=== PATIENT | female | born 1960 | race Caucasian/White ===

== ENCOUNTER 2021-10-25 15:11 | Outpatient (CLI) | payer BC, SELFPAY ==
[2021-10-25 20:22] LABS: Hematocrit 46.5 % (37.0-47.0); Hemoglobin 14.9 g/dL (12.0-15.0); Mean Corpuscular Hemoglobin 30.2 pg (26-34); Mean Corpuscular Volume 94.1 fl (80-100); Mean Platelet Volume 11.9 fl (7.4-10.4); Platelet Count Result 205 k/mm3 (150-375); Red Blood Count 4.94 M/mm3 (4.2-5.4); Red Cell Distribution Width 14.5 % (11.5-14.5); White Blood Count 6.2 K/mm3 (4.5-10.0)
[2021-10-25 20:28] LABS: Alanine Aminotransferase 28 U/L (4-35); Albumin Level 4.1 g/dL (3.5-5.1); Alkaline Phosphatase 93 U/L (38-126); Anion Gap 11 mmol/L (8-16); Aspartate Amino Transferase 26 U/L (14-36); Bilirubin,Total 0.9 mg/dL (0.2-1.3); Blood Urea Nitrogen 10 mg/dL (7-17); Calcium 9.3 mg/dL (8.4-10.2); Carbon Dioxide 28 mmol/L (22-30); Chloride 102 mmol/L (98-107); Cholesterol 260 mg/dL (0-200); Estimated Glomerular Filt Rate > 60; Glucose 229 mg/dL (65-110); HDL Direct 55 mg/dL; Sodium 141 mmol/L (137-145); Triglycerides 159 mg/dL (<150)
[2021-10-25 20:58] LABS: Hemoglobin A1C 11.6 % (<5.7)
[2021-10-25 21:11] LABS: LDL Cholesterol Direct 175 mg/dL
[2021-10-30 07:22] LABS: Alphahydroxymidazolam NEGATIVE ng/mL (<50); Alphahydroxytriazolam NEGATIVE ng/mL (<50); Amphetamines NEGATIVE ng/mL (<500); Barbiturates NEGATIVE ng/mL (<300); Benzodiazepines POSITIVE ng/mL (<100); Cocaine Metabolite NEGATIVE ng/mL (<100); Codeine NEGATIVE ng/mL (<50); Hydrocodone 420 ng/mL (<50); Hydromorphone 290 ng/mL (<50); Hydroxyethylflurazepam NEGATIVE ng/mL (<50); Lorazepam NEGATIVE ng/mL (<50); Marijuana Metabolite NEGATIVE ng/mL (<20); Methadone Metabolite NEGATIVE ng/mL (<100); Morphine NEGATIVE ng/mL (<50); Norhydrocodone 770 ng/mL (<50); Opiates POSITIVE ng/mL (<100); Oxidant NEGATIVE mcg/mL (<200); Temazepam NEGATIVE ng/mL (<50); pH 6.1 (4.5-9.0)
== END 2021-10-25 15:12 | disposition home or self-care (01) ==
LOC: ANHBWCLAB 15:13
PROVIDERS: PCP Family Medicine; Visit Provider Family Medicine
DX: E11.65 Type 2 diabetes mellitus with hyperglycemia (principal); G62.9 Polyneuropathy, unspecified; F41.9 Anxiety disorder, unspecified; G54.7 Phantom limb syndrome without pain; Z00.00 Encounter for general adult medical examination without abnormal findings
CPT/HCPCS: 36415; 80053; 80061; 80299; 83036; 85027

== ENCOUNTER 2023-02-13 01:43 | Day surgery (SDC) | payer OTHER, SELFPAY ==
[2023-02-02 14:09] VITALS: BMI 43.4
--- NOTE | 2023-02-13 09:19 | WPDANESEPPF ---
Anes - Initial Pre Proc Eval Procedure: Operation Date: 02/13/23 13:45 Proposed Procedures p Esophagogastroduodenoscopy & Colonoscopy - Paco Everett MD Date/Time: 02/13/23 09:19 Surgeon: Paco Everett MD Pre Op Diagnosis: GERD, Dysphagia, Hiatal Hernia, positive cologuard Patient Data Age: 62 Gender: F Height: 1.83 m Weight: 145.5 kg Allergies Allergy/AdvReac Type Severity Reaction Status Date / Time amoxicillin Allergy Unknown Unknown Verified 01/08/23 14:49 codeine Allergy Unknown Unknown Verified 01/08/23 14:49 nitrofurantoin Allergy Unknown Unknown Verified 01/08/23 14:49 Sulfa (Sulfonamide Allergy Unknown Unknown Verified 01/08/23 14:49 Antibiotics) ciprofloxacin Allergy Swelling Verified 01/08/23 14:49 of Lip/Tongue/Throat metformin AdvReac cramping, Verified 01/08/23 14:49 nausea, abdominal pain morphine AdvReac Anxiety Verified 02/02/23 13:56 Home Medications Medication Instructions Recorded Confirmed Type levocetirizine 5 mg tablet 5 mg PO .in the evening PRN 10/06/19 02/02/23 History Allergy Symptoms blood-glucose meter ([employer] #1 ea 11/26/21 02/02/23 Rx Glucose Monitoring System kit) pen needle, diabetic 32 gauge x #100 ea 12/03/21 02/02/23 Rx 1/4 (Novofine 32) gabapentin 600 mg tablet 1,200 mg PO TID #180 tabs 07/26/22 02/02/23 Rx omeprazole 40 mg capsule,delayed 40 mg PO DAILY #90 caps 09/23/22 02/02/23 Rx release glipizide 5 mg tablet 10 mg PO BID #360 tabs 09/27/22 02/02/23 Rx ibuprofen 800 mg tablet 800 mg PO TID pain #270 tabs 09/27/22 02/02/23 Rx lisinopril 2.5 mg tablet 2.5 mg PO DAILY #90 tabs 10/10/22 02/02/23 Rx ferrous sulfate 325 mg (65 mg 325 mg PO DAILY #90 tabs 11/17/22 02/02/23 Rx iron) tablet famotidine 20 mg tablet 20 mg PO DAILY #90 tabs 12/24/22 02/02/23 Rx albuterol sulfate 90 mcg/actuation 2 inh inhalation Q4-6H #18 grams 12/28/22 02/02/23 Rx aerosol inhaler (ProAir HFA) dulaglutide 1.5 mg/0.5 mL 1.5 mg (0.5 mL) subcut WEEKLY #2 mL 12/31/22 02/02/23 Rx subcutaneous pen injector (Trulicity) metoclopramide HCl 10 mg tablet 10 mg PO Q6H #60 tabs 01/08/23 02/02/23 Rx (Reglan) ondansetron 4 mg disintegrating 4 mg PO Q6H PRN nausea and 01/22/23 02/02/23 Rx tablet vomiting #20 tabs hyoscyamine sulfate 0.125 mg tablet 0.125 mg PO DAILY 02/02/23 02/02/23 History magnesium 250 mg tablet 250 mg PO DAILY 02/02/23 02/02/23 History polyethylene glycol 3350 17 17 g PO DAILY PRN Constipation 02/02/23 02/02/23 History gram/dose oral powder (Miralax) blood sugar diagnostic (CareTouch #100 ea 02/03/23 Rx Test Strip) lancets 33 gauge (CareTouch Twist #100 ea 02/03/23 Rx Lancet) alprazolam 0.5 mg tablet 0.5 mg PO TID PRN anxiety #90 tabs 02/13/23 Rx hydrocodone 10 mg-acetaminophen 1 tablet PO Q8H PRN pain #90 tabs 02/13/23 Rx 325 mg tablet Patient hx anesthesia problems: none Family hx anesthesia problems: none Results Review: All pre-operative results and documents have been reviewed as part of the pre-operative evaluation. [facility] Past Medical History Medical History (Updated 02/13/23 @ 09:20 by Jose F Bill DO) Amputation of right lower extremity below knee Anxiety Asthma Early satiety Epigastric pressure Family hx of colon cancer Gastroparesis Hiatal hernia Hypertension Nausea Obesities, morbid Other snf (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 therapy Peripheral polyneuropathy Phantom limb Therapeutic opioid-induced constipation (OIC) Uncontrolled type 2 diabetes mellitus with hyperglycemia Family History Family History Mother Diabetes mellitus Heart failure Grandparent Diabetes mellitus Family history of pancreatic cancer Family history of colonic diverticulitis Sibling COPD (chronic obstructive pulmonary disease) Parkinson disease Father Parkinson disease Social History
[2023-02-13 12:18] VITALS: BP 151/99; PULSE 84; RESP 18; TEMP 36.2; O2SAT 96; BMI 43.4
[2023-02-13] MEDS: LACTATED RINGERS 1,000 ML 150 ML IV CONT (12:28)
--- NOTE | 2023-02-13 12:30 | PM.HPGS ---
History of Present Illness History of Present Illness Consent: Risks, benefits, and alternatives have been discussed and questions answered. Patient agrees to proceed with procedure. Chief complaint: GERD, Dysphagia, Hiatal Hernia, positive cologuard Narrative: Marge Elaine is a 62 year old female with gerd on ppi and famotidine, sometimes feels gas trapped after eating, CT scan showed large hiatal hernia, last colonoscopy 8 years ago and recent positive cologuard (brother also had colon cancer) Review of Systems Constitutional: Constitutional: Denies headache(s) and Denies weakness Eyes: Eyes: Denies blurry vision ENT: Reports Normal hearing present, Denies headache(s) and Denies neck pain Cardiovascular: Cardiovascular: Denies chest pain and Denies dyspnea Respiratory: Respiratory: Denies dyspnea Gastrointestinal: Gastrointestinal: Reports no additional gastrointestinal complaints Genitourinary: Genitourinary: Denies dysuria Musculoskeletal: Musculoskeletal: Denies neck pain Integumentary/Breasts: Skin/Breast: Denies dry skin Neurologic: Reports Normal hearing present, Denies headache(s) and Denies weakness Psychiatric: Psychiatric: Denies anxiety Endocrine: Endocrine: Denies change in body appearance Hematologic/Lymphatic: Hematologic/Lymphatic: Denies easy bleeding Allergic/Immunologic: Allergic/Immunologic: Denies urticaria PMFSH Past Medical History Medical History (Updated 02/13/23 @ 12:32 by Paco Everett MD) Amputation of right lower extremity below knee Anxiety Asthma Early satiety Epigastric pressure Family hx of colon cancer Gastroparesis Hiatal hernia Hypertension Nausea Obesities, morbid Other fpc (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 therapy Peripheral polyneuropathy Phantom limb Positive colorectal cancer screening using Cologuard test Therapeutic opioid-induced constipation (OIC) Uncontrolled type 2 diabetes mellitus with hyperglycemia Family History Family History Mother Diabetes mellitus Heart failure Grandparent Diabetes mellitus Family history of pancreatic cancer Family history of colonic diverticulitis Sibling COPD (chronic obstructive pulmonary disease) Parkinson disease Father Parkinson disease Social History Social History Smoking status: Never smoker Second hand tobacco smoke exposure: No Alcohol intake: never Substance use: never Substance use type: does not use Lack of Transportation: YES Lack of Food: Never True Current Housing: I Have Housing Concerned About Future Housing: YES Difficulty Paying Gas/Electric Bills: YES Difficulty Paying for Meds: No Education: High School Diploma/GED Difficulty w/ Childcare or Family Care: No Living arrangements: with family Meds Home Medications and Allergies Home Medications Medication Instructions Recorded Confirmed Type levocetirizine 5 mg tablet 5 mg PO .in the evening PRN 10/06/19 02/13/23 History Allergy Symptoms blood-glucose meter (CareTouch #1 ea 11/26/21 02/13/23 Rx Glucose Monitoring System kit) pen needle, diabetic 32 gauge x #100 ea 12/03/21 02/13/23 Rx 1/4 (Novofine 32) gabapentin 600 mg tablet 1,200 mg PO TID #180 tabs 07/26/22 02/13/23 Rx omeprazole 40 mg capsule,delayed 40 mg PO DAILY #90 caps 09/23/22 02/13/23 Rx release glipizide 5 mg tablet 10 mg PO BID #360 tabs 09/27/22 02/13/23 Rx ibuprofen 800 mg tablet 800 mg PO TID pain #270 tabs 09/27/22 02/13/23 Rx lisinopril 2.5 mg tablet 2.5 mg PO DAILY #90 tabs 10/10/22 02/13/23 Rx ferrous sulfate 325 mg (65 mg 325 mg PO DAILY #90 tabs 11/17/22 02/13/23 Rx iron) tablet famotidine 20 mg tablet 20 mg PO DAILY #90 tabs 12/24/22 02/13/23 Rx albuterol sulfate 90 mcg/actuation 2 inh inhalation Q4-6H #18 grams 12/28/22 02/13/23 Rx aerosol inhaler (ProAir HFA) jayjay
[2023-02-13 12:31] LABS: Glucose Point of Care 166 mg/dl (65-105)
--- NOTE | 2023-02-13 13:10 | SUR.OPER ---
EGD START: 1240; END: 1249. COLONOSCOPY START: 1256; END: 1309.
[2023-02-13 13:16] VITALS: BP 119/76; PULSE 82; RESP 19; O2SAT 92
[2023-02-13 13:26] VITALS: BP 123/76; PULSE 84; RESP 21; O2SAT 92
[2023-02-13 13:36] VITALS: BP 125/56; PULSE 78; RESP 19; O2SAT 93
== END 2023-02-13 13:52 | disposition home or self-care (01) ==
PROVIDERS: PCP Family Medicine; Visit Provider Internal Medicine Gastroenterology
PROC: 0DJ08ZZ Inspection of Upper Intestinal Tract, Via Natural or Artificial Opening Endoscopic (ICD-10-PCS; CPT 43235; principal; 2023-02-13 13:45)
DX: Z12.11 Encounter for screening for malignant neoplasm of colon (principal); K57.30 Diverticulosis of large intestine without perforation or abscess without bleeding; K64.4 Residual hemorrhoidal skin tags; K64.8 Other hemorrhoids; R19.5 Other fecal abnormalities; Z80.0 Family history of malignant neoplasm of digestive organs; K44.9 Diaphragmatic hernia without obstruction or gangrene; K29.50 Unspecified chronic gastritis without bleeding; J45.909 Unspecified asthma, uncomplicated; I10 Essential (primary) hypertension; E11.9 Type 2 diabetes mellitus without complications; F41.9 Anxiety disorder, unspecified; E11.42 Type 2 diabetes mellitus with diabetic polyneuropathy; E66.01 Morbid (severe) obesity due to excess calories; Z68.41 Body mass index [BMI] 40.0-44.9, adult; Z79.84 Long term (current) use of oral hypoglycemic drugs; Z79.51 Long term (current) use of inhaled steroids; Z79.899 Other long term (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 therapy; Z79.891 Long term (current) use of opiate analgesic
CPT/HCPCS: 45378; 43239; 82948; 88305; J2704; J7120

== ENCOUNTER 2023-03-30 16:09 | Outpatient (CLI) | payer OTHER, SELFPAY ==
[2023-03-30 18:37] LABS: Appearance Urine Clear (Clear); Bilirubin Urine Negative (Negative); Blood Urine Negative (Negative); Color Urine Yellow (Yellow); Glucose Urine UA Negative (Negative); Ketones Urine Trace mg/dL (Negative); Leukocyte Esterase Ur Negative LEU/UL (Negative); Nitrate Urine Negative (Negative); Protein Urine Negative (Negative); Specific Grav Ur 1.019 (1.001-1.035); Urobilinogen Urine 0.2 mg/dL (<2.0); pH Urine 6.5 (5.0-9.0)
[2023-03-30 18:47] LABS: Add Urine Microscopic? NO
[2023-03-30 19:09] LABS: MALB Creatinine Ratio 41.8 mg/g (0-30); Microalbumin Urine Random 7.1 mg/L (0-16.7)
== END 2023-03-30 16:10 | disposition home or self-care (01) ==
LOC: ANHBWCLAB 16:10
PROVIDERS: PCP Family Medicine; Visit Provider Family Medicine
DX: R31.9 Hematuria, unspecified (principal); E11.9 Type 2 diabetes mellitus without complications
CPT/HCPCS: 36415; 81003; 82043; 83036

== ENCOUNTER 2023-07-20 13:41 | Outpatient (CLI) | payer OTHER, SELFPAY | END 2023-07-20 13:42 | disposition home or self-care (01) | LOC: ANHBWCLAB 13:42 | PROVIDERS: PCP Family Medicine; Visit Provider Family Medicine | DX: E11.9 Type 2 diabetes mellitus without complications (principal) | CPT/HCPCS: 36415; 83036 ==

== ENCOUNTER 2023-11-30 16:23 | Outpatient (CLI) | payer OTHER, SELFPAY ==
[2023-11-30 18:55] LABS: Hematocrit 47.7 % (37.0-47.0); Hemoglobin 14.9 g/dL (12.0-15.0); Mean Corpuscular HGB Conc 31.2 g/dl (32-36); Mean Corpuscular Hemoglobin 29.6 pg (26-34); Mean Corpuscular Volume 94.8 fl (80-100); Mean Platelet Volume 11.7 fl (7.4-10.4); Platelet Count Result 234 k/mm3 (150-375); Red Blood Count 5.03 M/mm3 (4.2-5.4); Red Cell Distribution Width 15.3 % (11.5-14.5); White Blood Count 7.7 K/mm3 (4.5-10.0)
[2023-11-30 19:54] LABS: Creatinine Urine 70.7 mg/dL
[2023-11-30 20:16] LABS: MALB Creatinine Ratio < 8.5 mg/g (0-30); Microalbumin Urine Random < 6.0 mg/L (0-16.7)
[2023-11-30 20:57] LABS: Alanine Aminotransferase 38 U/L (6-35); Albumin Level 4.1 g/dL (3.5-5.1); Alkaline Phosphatase 96 U/L (38-126); Anion Gap 8 mmol/L (8-16); Aspartate Amino Transferase 58 U/L (14-36); Bilirubin,Total 0.8 mg/dL (0.2-1.3); Blood Urea Nitrogen 16 mg/dL (7-17); Calcium 10.2 mg/dL (8.4-10.2); Carbon Dioxide 32 mmol/L (22-30); Chloride 101 mmol/L (98-107); Cholesterol 208 mg/dL (0-200); Estimated Glomerular Filt Rate 57; Glucose 115 mg/dL (65-110); HDL Direct 40 mg/dL; Sodium 141 mmol/L (137-145); Triglycerides 145 mg/dL (<150)
[2023-11-30 21:01] LABS: Vitamin D 25 Hydroxy < 12.8 ng/mL
[2023-11-30 21:07] LABS: LDL Cholesterol Direct 118 mg/dL
[2023-11-30 21:13] LABS: Hemoglobin A1C 6.5 % (<5.7)
== END 2023-11-30 16:24 | disposition home or self-care (01) ==
LOC: ANHBWCLAB 16:25
PROVIDERS: PCP Nurse Practitioner Adult Health; Visit Provider Nurse Practitioner Adult Health
DX: R79.89 Other specified abnormal findings of blood chemistry (principal); Z13.9 Encounter for screening, unspecified; E11.9 Type 2 diabetes mellitus without complications
CPT/HCPCS: 36415; 80053; 80061; 82043; 82306; 83036; 85027

== ENCOUNTER 2024-02-09 15:10 | Outpatient (CLI) | payer OTHER, SELFPAY ==
--- NOTE | ~2024-02-09 | US_ITS ---
Ultrasound of the neck CLINICAL HISTORY: Anterior mass TECHNIQUE: Sonographic imaging of the anterior neck in the midline was performed at the area of palpa ble concern. FINDINGS: No sonographic abnormalities seen in the area scanned. No solid mass or fluid collection se en. IMPRESSION: No sonographic correlate seen at the area of palpable concern in the anterior mid neck. No mass lesio n identified. Consider cross-sectional imaging to further evaluate for mass, as indicated. Reviewed, dictated and finalized at location M. IMPRESSION: No sonographic correlate seen at the area of palpable concern in the anterior m id neck. No mass lesion identified. Consider cross-sectional imaging to further evaluate for mass, as indicated.
== END 2024-02-09 15:11 | disposition home or self-care (01) ==
LOC: ANHIMG 15:11
PROVIDERS: PCP Nurse Practitioner Adult Health; Visit Provider Nurse Practitioner Adult Health
DX: R22.1 Localized swelling, mass and lump, neck (principal); R22.0 Localized swelling, mass and lump, head
CPT/HCPCS: 76536

== ENCOUNTER 2024-02-23 15:24 | Outpatient (CLI) | payer OTHER, SELFPAY ==
--- NOTE | ~2024-02-23 | CT_ITS ---
CT scan of the Neck Technique: 2.5 mm axial scans were obtained through the neck without IV contrast administration. Christa nal and sagittal reconstructions of the neck were obtained. Dose reduction technique was used on this scan by utilizing automated exposure control and iterative reconstruction technique. The dose-length product (DLP) was 606.17 mGy-cm. Clinical History: Lump Findings: There is no evidence of any significant cervical lymphadenopathy. Several small, nonenlarged jugulo- digastric and posterior cervical lymph nodes are noted bilaterally. Parapharyngeal spaces appear norm al bilaterally. The parotid and submandibular glands appear normal. In particular, no abnormal mass l esion seen at the location of the BB at the anterior neck. The pharyngeal mucosal spaces appear normal. No soft tissue masses are seen in the neck. The thyroid gland appears normal. Images of the lung apices reveal no abnormalities. Impression: No significant abnormalities noted. Reviewed, dictated and finalized at location . Impression: No significant abnormalities noted.
== END 2024-02-23 15:25 | disposition home or self-care (01) ==
PROVIDERS: PCP Nurse Practitioner Adult Health; Visit Provider Nurse Practitioner Adult Health
DX: R22.1 Localized swelling, mass and lump, neck (principal); R22.0 Localized swelling, mass and lump, head
CPT/HCPCS: 70490

== ENCOUNTER 2024-06-13 14:50 | Outpatient (CLI) | payer OTHER, SELFPAY ==
[2024-06-13 19:06] LABS: Alanine Aminotransferase 19 U/L (6-35); Albumin Level 3.9 g/dL (3.5-5.1); Alkaline Phosphatase 82 U/L (38-126); Anion Gap 8 mmol/L (4-12); Aspartate Amino Transferase 45 U/L (14-36); Bilirubin,Total 0.9 mg/dL (0.2-1.3); Blood Urea Nitrogen 19 mg/dL (7-17); Calcium 9.1 mg/dL (8.4-10.2); Carbon Dioxide 31 mmol/L (22-30); Chloride 100 mmol/L (98-107); Cholesterol 259 mg/dL (0-200); Estimated Glomerular Filt Rate 56; Glucose 183 mg/dL (65-110); HDL Direct 50 mg/dL; Potassium 4.7 mmol/L (3.4-5.0); Sodium 139 mmol/L (137-145); Triglycerides 152 mg/dL (<150)
[2024-06-13 19:17] LABS: Vitamin D 25 Hydroxy 57.7 ng/mL
[2024-06-13 19:18] LABS: LDL Cholesterol Direct 152 mg/dL
[2024-06-13 19:24] LABS: Hemoglobin A1C 9.5 % (<5.7)
[2024-06-13 19:30] LABS: Creatinine Urine 182.5 mg/dL
[2024-06-13 19:39] LABS: MALB Creatinine Ratio 6.5 mg/g (0-30); Microalbumin Urine Random 11.8 mg/L (0-16.7)
== END 2024-06-13 14:51 | disposition home or self-care (01) ==
PROVIDERS: PCP Nurse Practitioner Adult Health; Visit Provider Nurse Practitioner Adult Health
DX: R79.89 Other specified abnormal findings of blood chemistry (principal); E11.9 Type 2 diabetes mellitus without complications; Z79.899 Other long term (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 therapy
CPT/HCPCS: 36415; 80053; 80061; 82043; 82306; 82565; 83036

== ENCOUNTER 2024-12-19 15:17 | Outpatient (CLI) | payer OTHER, SELFPAY ==
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
--- OUTSIDE RECORDS SUMMARY | 2024-12-19 16:05 | XMS_ITS | Referral Summary ---
Author Organization [facility] Address [address] [place] [address] Care Team Providers Care Mail List Librarian Name Role Phone Nena Garcia NP Unavailable [phone] Armen Johns MD Primary Care Provider [phone] Encounters Date Type Department Care Team Description 10/16/2024 6:45 PM WEB PROGRAMMER Office Visit [facility] [place] [address] [place] [address] Kay Hanson NP Non-recurrent acute suppurative otitis media of right ear without spontaneous rupture of tympanic membrane (Primary Dx); Antibiotic-induced yeast infection 09/27/2024 5:38 PM WEB PROGRAMMER - 09/27/2024 11:59 PM WEB PROGRAMMER Hospital Encounter [address] [address] Lumbar radiculopathy Discharge Disposition: Discharge to home or self care from Last 3 Months Allergies Active Allergy Reactions Criticality Noted Date [...] meter 1 each 1 9 Active lancets [facility] 1 lancet to be used 4 times daily for glucose checks 1 each 9 Active TRUEDRAW LANCING DEVICE [facility] 9 Active levocetirizine (XYZAL) 5 mg tablet TK 1 T PO QD 12 9 Active omeprazole (PriLOSEC) 40 mg capsule TK 1 C PO QD AC 1 9 Active ergocalciferol (VITAMIN D) 50,000 unit capsule TK 1 C PO Q WEEK 5 9 Active PROAIR HFA 90 mcg/actuation inhaler Inhale 2 puffs 4 9 Active blood-glucose meter (ONETOUCH ULTRA2 METER) [facility] USE DIRECTED TO TEST BLOOD SUGAR 6 [...] neuropathy, without long-term current use of insulin ([facility]) 03/17/2019 Assessment & Plan (03/17/2019 4:18 PM CDT): 58-year-old woman with history of type 2 diabetes admitted March 12, 2019 after 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 She previously was intolerant of metformin [...] (03/12/2019): Added automatically from request for surgery [id number] Assessment & Plan (03/17/2019 4:19 PM CDT): We will work to improve glycemic control to assist in wound healing. Patient understands the need for long-term stable glycemic control. Side effects of the sulfonylurea agents were discussed in detail with her. 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 Not on file Not on file Last Filed Vital Signs Vital Sign Reading Time Taken Comments Blood Pressure 122/74 10/16/2024 6:48 PM WEB PROGRAMMER Pulse 70 10/16/2024 6:48 PM WEB PROGRAMMER Temperature 36.7 ??C (98.1 ??F) 10/16/2024 6:48 PM CS T Respiratory Rate 17 10/16/2024 6:48 PM WEB PROGRAMMER Oxygen Saturation 98% 10/16/2024 6:48 PM WEB PROGRAMMER Inhaled Oxygen Concentration - - Weight 136.1 kg (300 lb) 10/16/2024 6:48 PM WEB PROGRAMMER per patient Height 182.9 cm (6') 10/16/2024 6:48 PM WEB PROGRAMMER Body Mass Index 40.69 10/16/2024 6:48 PM WEB PROGRAMMER Plan of Treatment Not on file Procedures Procedure Name Priority Date/Time Associated Diagnosis Comments MRI LUMBAR SPINE WO CONTRAST Schedule Routine, Read Routine (OP Routine) 09/27/2024 6:21 PM WEB PROGRAMMER Lumbar radiculopathy LIPID PANEL Routine 03/13/2019 1:03 AM CDT HEMOGLOBIN A1C STAT 03/12/2019 2:48 PM CDT DIGITAL MAMMOGRAPHY Routine 11/04/2013 2:19 PM WEB PROGRAMMER from Last 3 Months or Most Recently Relevant to Health Maintenance Results * MRI Lumbar Spine WO Contrast (09/27/2024 6:21 PM WEB PROGRAMMER) Anatomical Region Laterality Modality Spine N/A Magnetic Resonan ce 09/28/2024 9:33 AM WEB PROGRAMMER Narrative 09/28/2024 9:41 AM WEB PROGRAMMER EXAM DESCRIPTION: ?? MRI LUMBAR SPINE WO [...] epidural fat. ??Mild spinal canal stenosis. ?? Ajgz-jg-[id number] left and no significant right neural foraminal [...] AM T: ??09/28/2024 9:41 AM Report ID: [id number] Reading Location: ??[id number] Procedure Note Rey Wilkins, DO - 09/28/2024 EXAM DESCRIPTION: MRI LUMBAR [...] dorsal epidural fat. Mild spinal canal stenosis. Zcna-el-oyemqquv left and no significant right neural foraminal [...] Rey Wilkins D.O. AP: OSCAR Report ID: [id number] Reading Location: [place] [address] Anahi Brewer NAIL SPECIALIST IMG MRI PROCEDURES Final Re sult * Lipid panel (03/13/2019 1:03 AM CDT) Cholesterol 182 30 - 199 mg/dL [facility] Comment: Interpretive Data Ages < or = [...] revised on 2018. Triglycerides 78 <=149 mg/dL [facility] Comment: Interpretive Data Ages < or = [...] revised on 2018. HDL 45 >=40 mg/dL [facility] Comment: Interpretive Data Ages < or = [...] on 2018. LDL, calculated 121 <=129 mg/dL [facility] Comment: Interpretive Data Ages < or = [...] revised on 2018. Chol/HDL ratio 4 [facility] Blood specimen (specimen) 03/13/2019 1:03 AM CDT 03/13/2019 12:42 PM CDT Narrative [facility] - 03/14/2019 2:21 AM CDT us Walker [place] MD LAB BLOOD ORDERABL ES Final Result [facility] Department [place] [address] * (ABNORMAL) Hemoglobin A1c (03/12/2019 2:48 PM CDT) Hgb A1C 9.3(H) 4.0 - 5.6 % [facility] Estimated Average Glucose 220 mg/dL [facility] Comment: The ADA recommends reporting an estimated Average Glucose (eAG) with all Hemoglobin A1c results using the equation derived from a study of 507 normal and diabetic adults. ??Minority populations were underrepresented and children were not included. ?? (Diabetes Care 31:3950-3696, 2008). ??The eAG is not equivalent to a fasting glucose. Blood specimen (specimen) 03/12/2019 2:48 PM CDT 03/12/2019 3:01 PM CDT Narrative [facility] - 03/12/2019 9:09 PM CDT us Jhonny Headley MD LAB BLOOD ORDERABLES Final R esult [facility] Department [place] [address] * DIGITAL MAMMOGRAPHY (11/04/2013 2:19 PM WEB PROGRAMMER) Anatomical Region Laterality Modality Breast Mammography 11/04/2013 2:19 PM WEB PROGRAMMER Narrative 11/04/2013 7:55 PM WEB PROGRAMMER Screening Mamm Bi ??Acc#: ??[id number] DATE OF EXAM: ??Nov 04 2013 CLINICAL [...] on: ??Nov 04 2013 2:28P Transcribed by: ??areli ??On: Nov 04 2013 ??3:06P Approved Electronically by: ??PATRICIA HANSON M.D. ??on: ??Nov 04 2013 7:55P Ordering DR: KAVON COSBY Attending : KAVON COSBY Procedure Note Provider, MD Joan - 03/17/2017 Screening Mamm Bi Acc#: [id number] DATE OF EXAM: Nov 04 2013 CLINICAL [...] COSBY Attending DR: KAVON COSBY Historical Provider IMG MAMMO PROCEDURES Yue l Result from Last 3 Months or Most Recently Relevant to Health Maintenance Insurance [employer] [facility] [place] [id number] Advance Directives For more information, please contact: [phone] * Full Code (Latest Code Status on File) Date Activated Date Inactivated Comments 03/12/2019 4:27 PM 03/17/2019 10:36 PM Care Teams Mail List Librarian Relationship Specialty [place] [id number] [address] [address] PCP - General Family Practice 05/27/22 Nena Garcia, [place] [id number] [address] [address] 03/12/19
[2024-12-19 20:36] LABS: Basophils Percent Auto 0.7 % (0.2-1.2); Eosinophils Absolute Auto 0.1 K/mm3 (0-0.3); Hematocrit 46.7 % (37.0-47.0); Hemoglobin 14.6 g/dL (12.0-15.0); Immature Granulocyte Absolute 0.01 K/mm3 (0.00-0.031); Immature Granulocyte Percent A 0.2 % (0-0.5); Lymphocytes Absolute Auto 1.92 K/mm3 (0.9-3.2); Lymphocytes Percent Auto 33.4 % (18.3-44.2); Mean Corpuscular HGB Conc 31.3 g/dl (32-36); Mean Corpuscular Hemoglobin 29.7 pg (26-34); Mean Corpuscular Volume 95.1 fl (80-100); Mean Platelet Volume 12.4 fl (7.4-10.4); Monocytes Absolute Auto 0.4 K/mm3 (0.1-0.6); Monocytes Percent Auto 7.3 % (2.6-8.5); Neutrophils Absolute Auto 3.3 K/mm3 (1.3-6.7); Neutrophils Percent Auto 57.4 % (45.5-73.1); Platelet Count Result 170 k/mm3 (150-375); Red Blood Count 4.91 M/mm3 (4.2-5.4); White Blood Count 5.7 K/mm3 (4.5-10.0)
[2024-12-19 20:44] LABS: Iron 113 ug/dL (37-170)
[2024-12-19 21:03] LABS: Percent Iron Saturation 46 % (20-50)
[2024-12-19 21:07] LABS: Hemoglobin A1C > 14.0 % (<5.7)
[2024-12-19 21:10] LABS: Creatinine Urine 100.8 mg/dL
[2024-12-19 21:14] LABS: Microalbumin Urine Random < 6.0 mg/L (0-16.7)
[2024-12-19 21:15] LABS: MALB Creatinine Ratio < 6.0 mg/g (0-30)
[2024-12-19 21:20] LABS: Free T4 Free Thyroxine 1.19 ng/dL (0.78-2.19); Vitamin D 25 Hydroxy 81.2 ng/mL
[2024-12-20 00:10] LABS: LDL Cholesterol Direct 182 mg/dL
[2024-12-20 00:13] LABS: Alanine Aminotransferase 24 U/L (6-35); Albumin Level 4.1 g/dL (3.5-5.1); Alkaline Phosphatase 85 U/L (38-126); Anion Gap 10 mmol/L (4-12); Aspartate Amino Transferase 23 U/L (14-36); Bilirubin,Total 0.8 mg/dL (0.2-1.3); Blood Urea Nitrogen 12 mg/dL (7-17); Calcium 9.4 mg/dL (8.4-10.2); Carbon Dioxide 30 mmol/L (22-30); Chloride 97 mmol/L (98-107); Cholesterol 276 mg/dL (0-200); Estimated Glomerular Filt Rate > 60; Glucose 345 mg/dL (65-110); HDL Direct 48 mg/dL; Sodium 137 mmol/L (137-145); Triglycerides 198 mg/dL (<150)
[2024-12-20 01:09] LABS: Folic Acid 4.4 ng/mL (2.76->20)
== END 2024-12-19 15:18 | disposition home or self-care (01) ==
PROVIDERS: PCP Nurse Practitioner Adult Health; Visit Provider Nurse Practitioner Adult Health
DX: L65.9 Nonscarring hair loss, unspecified (principal); D64.9 Anemia, unspecified; E11.9 Type 2 diabetes mellitus without complications; I10 Essential (primary) hypertension; R79.89 Other specified abnormal findings of blood chemistry
CPT/HCPCS: 36415; 80053; 80061; 82043; 82306; 82565; 82607; 82728; 82746; 83036; 83540; 83550; 84439; 84443; 85025

== ENCOUNTER 2025-01-26 12:01 | Outpatient (CLI) | payer OTHER, SELFPAY ==
--- NOTE | ~2025-01-26 | XR_ITS ---
CHEST RADIOGRAPH, PA AND LATERAL CLINICAL HISTORY: f/u pneumonia, 2 wks ago . COMPARISON: None available TECHNIQUE: PA and lateral views of the chest. FINDINGS Large hiatal hernia with an air-fluid level. The remainder of the cardiomediastinal silhouette is otherwise unremarkable. Elevation of the left hemidiaphragm with adjacent compressive atelectasis. No focal infiltrate or effusion is appreciated. IMPRESSION: No focal infiltrate or effusion, as detailed above. Reviewed, dictated and finalized at location A. HT LOSS COUNSELOR
--- OUTSIDE RECORDS SUMMARY | 2025-01-26 13:27 | XMS_ITS | Clinical Summary ---
Author Organization [facility] Address [address] [place] [address] Phone Care Team Providers Care Manufacturing Area Manager Name Role Phone Analy Wilkerson APRN, BARREL PLATER Unavailable Armen Johns MD Primary Care Provider [phone] Allergies Active Allergy Reactions Criticality Noted Date Comments Codeine Itching Low 07/25/2016 Warfarin Sodium Other (see Comments) 07/25/2016 Developed Severe bleeding in 2015, so was stopped Morphine Anxiety,Other (see Comments) Low 05/26/2022 Panic response. Nitrofurantoin Anaphylaxis 07/25/2016 Penicillin G Shortness of Breath,Itching 01/21/2020 Sulfa Antibiotics Nausea 10/07/2016 Medications Blood Glucose Monitoring Suppl (ONE TOUCH ULTRA 2) W/DEVICE Kit USE DIRECTED TO TEST BLOOD SUGAR 0 6 Active polycarbophil calcium (FIBERCON) 625 MG Tablet 625 mg as needed. 9 Active ibuprofen (MOTRIN) 800 MG Tablet Take 800 mg by mouth 3 times daily (with meals). Active ALPRAZolam (XANAX) 0.5 MG Tablet Take 0.5 mg by mouth 3 times daily as needed. Pt sometimes takes only 1/2 tab. Active Vitamin D3 1.25 MG (59651 UT) Capsule Take 5,000 Units by mouth every 7 days. 4 Active famotidine (PEPCID) 20 MG Tablet Take 20 mg by mouth daily. 5 Active Ferrous Sulfate 325 (65 Fe) MG Tablet Delayed Response Take 325 mg by mouth daily. 5 Active Lantus SoloStar 100 UNIT/ML Solution Pen-injector 20 Units by Subcutaneous route nightly. Active lisinopril (PRINIVIL, ZESTRIL) 2.5 MG Tablet Take 2.5 mg by mouth daily. 4 Active pantoprazole (PROTONIX) 40 MG Tablet Delayed Response Take 40 mg by mouth daily. 9 Active rosuvastatin (CRESTOR) 5 MG Tablet Take 5 mg by mouth every evening. 5 Active Mounjaro 2.5 MG/0.5ML Solution Auto-injector 2.5 mg by Subcutaneous route every 7 days. 5 Active albuterol 108 (90 Base) MCG/ACT Aerosol Solution take 1 Puff by inhalation every 4 hours as needed. 5 Active Albuterol Sulfate (ProAir RespiClick) 108 (90 Base) MCG/ACT AEROSOL POWDER, BREATH ACTIVATED 2 Puffs. 9 Active gabapentin (NEURONTIN) 600 MG Tablet Take 1,200 mg by mouth 3 times daily. 5 Active HYDROcodone-ac etaminophen (NORCO) 10-325 MG Tablet Take 1 Tablet by mouth every 8 hours as needed for Moderate or more severe pain. Active predniSONE (DELTASONE) 10 MG Tablet Take 3 tabs by mouth everyday for 3 days, then take 2 tabs by mouth every day for 2 days, then 1 tab orally x 1 day and done. 14 Tablet 5 Active Albuterol Sulfate (PROAIR HFA IN) take 2 Puffs by inhalation every 4 hours as needed. 025 Discontin ued(Med List Clean Up) gabapentin (NEURONTIN) 300 MG Capsule 300 mg 3 times daily. 9 025 Discontin ued(Med List Clean Up) HYDROcodone-ac etaminophen (NORCO) 10-325 MG Tablet Take 1 Tab by mouth 2 times daily as needed. 0 025 Discontin ued(Med List Clean Up) glipiZIDE (GLUCOTROL XL) 5 MG TABLET SR 24 HR TK 2 TS PO QD WITH BREAKFAST 0 025 Discontin ued(Med List Clean Up) hyoscyamine (ANASPAZ, LEVSIN) 0.125 MG Tablet Take 0.125 mg by mouth every 4 hours as needed. 025 Discontin ued(Med List Clean Up) omeprazole (PriLOSEC) 40 MG CAPSULE DELAYED RELEASE Take 40 mg by mouth nightly. 9 025 Discontin ued(Dupli jose Order) Active Problems Problem Noted Date Diagnosed Date Exacerbation of asthma, unsp ecified asthma severity, unspecified whether persistent 01/12/2025 Influenza A 01/12/2025 Class 2 obesity with body ma ss index (BMI) of 38.0 to 38.9 in adult 01/12/2025 Acute kidney injury 01/12/2025 Type 2 diabetes mellitus wit h diabetic neuropathy, without long-term current use of insulin 03/10/2020 Elevated d-dimer 03/10/2020 Acute blood loss anemia 03/10/2020 Suspected 2019 novel coronavirus infection 03/10 Constipation 03/10/2020 Deep vein thrombosis (DVT) 11/23/2007 Overview (01/12/2025): hx Rt arm DVT and was on Warfarin but developed severe bleeding 2015, so warfarin stopped Hypertension GERD (gastroesophageal reflux disease) Dyslipidemia Asthma Anxiety Encounters Date Type Department Care Team Description 01/11/2025 10:11 PM CAREERS COUNSELLOR - 01/19/2025 5:07 PM CAREERS COUNSELLOR Hospital Encounter [facility] [address] [id number] Shady Irby MD Dianati, Behfar, MD CarKeisha wolfe MD Exacerbation of asthma, unspecified asthma severity, unspecified whether persistent Discharge Disposition: Discharged to home or Selfcare 01/11/2025 Travel from Last 3 Months Immunizations Immunization Administration Dates Next Due Influenza Vaccine, Quadrivalent, PF 110 11/2021,09/13/2021,03/11/2020,10/30 Influenza, Injectable, Quadrivalent 09/25/2016 Influenza, Seasonal, Injecta ble, Undefined 10/25/2015 Influenza,Split Virus,Trivalent,Injectable,PF 10/27/2013 Pneumococcal Vaccine Adult - 23 Valent 1,03/11/2020 Pneumococcal conjugate PCV20 , polysaccharide [id number] conjugate, adjuvant, PF 05/09/2023 TDAP Vaccine 03/12/2019 Zoster Vaccine Recombinant 09/19/2023,05/09/2023 Family History Medical History Relation Name Comments Colon Cancer Brother 1/2 brother Parkinsonism Father Stroke Father Breast Cancer Maternal Aunt Cancer Maternal Grandmother pancrea tic Heart Disease Mother bypass Heart Disease Paternal Grandfather Heart Attack Sister Relation Name Status Comments Brother Father Maternal Aunt Maternal Grandmother Mother Paternal Grandfather Sister Social History Tobacco Use Types Packs/Day Years Used Date Smoking Tobacco: Never Smokeless Tobacco: Never Alcohol Use Standard Drinks/Week Comments Yes 0 (1 standard drink = 0.6 oz pur e alcohol) Rarely [facility] Utilities Answer Date Recorded In the past 12 months has th e electric, gas, oil, or water company threatened to shut off services in your home? No 01/12/2025 Hunger Vital Sign Answer Date Recorded Within the past 12 months, y ou worried that your food would run out before you got the money to buy more. Never true 01/12/20 25 Within the past 12 months, t he food you bought just didn't last and you didn't have money to get more. Never true 01/12/2025 PRAPARE - Transportation Answer Date Re corded In the past 12 months, has l ack of transportation kept you from medical appointments or from getting medications? No 12/25 In the past 12 months, has l ack of transportation kept you from meetings, work, or from getting things needed for daily living? No 01/12/2025 Housing Stability Vital Sign Answer Ernesto e Recorded In the last 12 months, was t here a time when you were not able to pay the mortgage or rent on time? No 01/12/2025 In the past 12 months, how m any times have you moved where you were living? 0 01/12/2025 At any time in the past 12 m [facility], were you homeless or living in a retirement (including now)? No 01/12/2025 Comments No Sex and Gender Information Value Date Recorded Sex Assigned at Not on file Legal Sex Female 9:30 PM CDT Gender Identity Not on file Sexual Orientation Not on file Occupation Industry Job Start Date Job End Date unemployed Not on file Not on file Not on file Last Filed Vital Signs Vital Sign Reading Time Taken Comments Blood Pressure 162/76 01/19/2025 7:35 AM CAREERS COUNSELLOR Pulse 80 01/19/2025 7:35 AM CAREERS COUNSELLOR Temperature 37 C (98.6 F) 01/19/2025 7:35 AM CAREERS COUNSELLOR Respiratory Rate 16 01/19/2025 1:51 PM CAREERS COUNSELLOR Oxygen Saturation 94% 01/19/2025 1:51 PM CAREERS COUNSELLOR Inhaled Oxygen Concentration - - Weight 128.4 kg (283 lb) 01/12/2025 8:44 AM CAREERS COUNSELLOR Height 182.9 cm (6') 01/12/2025 8:44 AM CAREERS COUNSELLOR Body Mass Index 38.38 01/12/2025 8:44 AM CAREERS COUNSELLOR Plan of Treatment Health Maintenance Due Date Last Done Comments Diabetes: Eye Exam 1962 Diabetes: Foot Exam 1962 Hepatitis C Virus (HCV) Screening 1962 Pap Smear 1983 Cervical Cancer Screening (CCS) 1992 HPV/Cotest 1992 Cologuard 2012 Mammogram 04/30/2019 04/30/2018 Immunochemical Fecal Occult Blood 03/11/2021 03/11/2020 Respiratory Syncytial Virus (RSV) Immunization (Adult) (1 - Risk 60-74 years 1-dose series) 2022 Influenza Immunization (#1) 2024 11/0 11/2021, 09/13/2021, 03/11/2020, Additional history exists SARS-COV-2 Immunization ( season) 2024 12/20/2021, 03/22/2021, 02/22/2021 Diabetes: Hemoglobin A1c 07/11/2025 025, 03/09/2020, 03/12/2019, Additional history exists Diabetes: Nephropathy Screening 01/11/2026 01/11/2025, 05/26/2022, 05/24/2022, Additional history exists Colonoscopy 11/03/2026 11/03/2016 Colorectal Cancer Screening 11/03/2026 Td Immunization Every 10 Years (Adults With 1 Tdap) 03/12/2029 03/12/2019 11/03/2016 DTaP/Tdap/Td Immunization Discontinued 03/12/2019 TdaP Immunization Discontinued 03/12/2019 Pneumococcal Immunization (50+ years) Completed 05/09/2023, 09/13/2021, 03/11/2020 Pneumococcal Immunization Combined Discontinued 05/09/2023, 09/13/2021, 03/11/2020 Zoster Immunization Completed 09/19/2023, 3 Hepatitis B Immunization Aged Out No longer eligible based on patient's age to complete this topic Meningococcal Immunization (ACWY) Aged Out No longer eligible based on patient's age to complete this topic Rotavirus Immunization Aged Out No lo nger eligible based on patient's age to complete this topic Procedures Procedure Name Priority Date/Time Associated Diagnosis Comments POCT GLUCOSE Routine 01/19/2025 11:16 AM CAREERS COUNSELLOR MANUAL DIFFERENTIAL Routine 01/19/2025 6 :04 AM CAREERS COUNSELLOR CBC WITH AUTO DIFFERENTIAL Routine 01/19/2025 6:04 AM CAREERS COUNSELLOR BASIC METABOLIC PANEL W/ CALCIUM TOTAL Routine 01/19/2025 6:04 AM CAREERS COUNSELLOR COMPLETE BLOOD COUNT (CBC) WITH DIFF Routine 01/19/2025 6:04 AM CAREERS COUNSELLOR POCT GLUCOSE Routine 01/19/2025 5:35 AM CAREERS COUNSELLOR RHYTHM STRIP 01/19/2025 12:00 AM CAREERS COUNSELLOR RHYTHM STRIP 01/19/2025 12:00 AM CAREERS COUNSELLOR POCT GLUCOSE Routine 01/18/2025 10:02 PM CAREERS COUNSELLOR POCT GLUCOSE Routine 01/18/2025 4:28 PM CAREERS COUNSELLOR POCT GLUCOSE Routine 01/18/2025 11:27 AM CAREERS COUNSELLOR POCT GLUCOSE Routine 01/18/2025 6:44 AM CAREERS COUNSELLOR MANUAL DIFFERENTIAL Routine 01/18/2025 6 :00 AM CAREERS COUNSELLOR CBC WITH AUTO DIFFERENTIAL Routine 01/18/2025 6:00 AM CAREERS COUNSELLOR BASIC METABOLIC PANEL W/ CALCIUM TOTAL Routine 01/18/2025 6:00 AM CAREERS COUNSELLOR COMPLETE BLOOD COUNT (CBC) WITH DIFF Routine 01/18/2025 6:00 AM CAREERS COUNSELLOR VANCOMYCIN Timed 01/18/2025 6:00 AM CAREERS COUNSELLOR RHYTHM STRIP 01/18/2025 12:00 AM CAREERS COUNSELLOR RHYTHM STRIP 01/18/2025 12:00 AM CAREERS COUNSELLOR RHYTHM STRIP 01/18/2025 12:00 AM CAREERS COUNSELLOR RHYTHM STRIP 01/18/2025 12:00 AM CAREERS COUNSELLOR POCT GLUCOSE Routine 01/17/2025 7:23 PM CAREERS COUNSELLOR POCT GLUCOSE Routine 01/17/2025 4:23 PM CAREERS COUNSELLOR POCT GLUCOSE Routine 01/17/2025 12:16 PM CAREERS COUNSELLOR POCT GLUCOSE Routine 01/17/2025 8:09 AM CAREERS COUNSELLOR MANUAL DIFFERENTIAL Routine 01/17/2025 6 :16 AM CAREERS COUNSELLOR CBC WITH AUTO DIFFERENTIAL Routine 01/17/2025 6:16 AM CAREERS COUNSELLOR COMPLETE BLOOD COUNT (CBC) WITH DIFF Routine 01/17/2025 6:16 AM CAREERS COUNSELLOR BASIC METABOLIC PANEL W/ CALCIUM TOTAL Routine 01/17/2025 6:16 AM CAREERS COUNSELLOR RHYTHM STRIP 01/17/2025 12:00 AM CAREERS COUNSELLOR RHYTHM STRIP 01/17/2025 12:00 AM CAREERS COUNSELLOR RHYTHM STRIP 01/17/2025 12:00 AM CAREERS COUNSELLOR RHYTHM STRIP 01/17/2025 12:00 AM CAREERS COUNSELLOR POCT GLUCOSE Routine 01/16/2025 7:37 PM CAREERS COUNSELLOR POCT GLUCOSE Routine 01/16/2025 4:09 PM CAREERS COUNSELLOR POCT GLUCOSE Routine 01/16/2025 11:26 AM CAREERS COUNSELLOR VANCOMYCIN Timed 01/16/2025 11:13 AM CAREERS COUNSELLOR XR CHEST SINGLE VIEW PORTABLE Routine 01/16/2025 10:24 AM CAREERS COUNSELLOR POCT GLUCOSE Routine 01/16/2025 8:31 AM CAREERS COUNSELLOR MANUAL DIFFERENTIAL Routine 01/16/2025 4 :16 AM CAREERS COUNSELLOR CBC WITH AUTO DIFFERENTIAL Routine 01/16/2025 4:16 AM CAREERS COUNSELLOR COMPLETE BLOOD COUNT (CBC) WITH DIFF Routine 01/16/2025 4:16 AM CAREERS COUNSELLOR BASIC METABOLIC PANEL W/ CALCIUM TOTAL Routine 01/16/2025 4:16 AM CAREERS COUNSELLOR RHYTHM STRIP 01/16/2025 12:00 AM CAREERS COUNSELLOR RHYTHM STRIP 01/16/2025 12:00 AM CAREERS COUNSELLOR RHYTHM STRIP 01/16/2025 12:00 AM CAREERS COUNSELLOR RHYTHM STRIP 01/16/2025 12:00 AM CAREERS COUNSELLOR POCT GLUCOSE Routine 01/15/2025 9:56 PM CAREERS COUNSELLOR POCT GLUCOSE Routine 01/15/2025 4:39 PM CAREERS COUNSELLOR COMMUNICATION TO RESPIRATORY THERAPY Routine 01/15/2025 10:04 AM CAREERS COUNSELLOR POCT GLUCOSE Routine 01/15/2025 10:04 AM CAREERS COUNSELLOR MANUAL DIFFERENTIAL Routine 01/15/2025 5 :31 AM CAREERS COUNSELLOR CBC WITH AUTO DIFFERENTIAL Routine 01/15/2025 5:31 AM CAREERS COUNSELLOR COMPLETE BLOOD COUNT (CBC) WITH DIFF Routine 01/15/2025 5:31 AM CAREERS COUNSELLOR BASIC METABOLIC PANEL W/ CALCIUM TOTAL Routine 01/15/2025 5:31 AM CAREERS COUNSELLOR VANCOMYCIN Timed 01/15/2025 5:31 AM CAREERS COUNSELLOR RHYTHM STRIP 01/15/2025 12:00 AM CAREERS COUNSELLOR RHYTHM STRIP 01/15/2025 12:00 AM CAREERS COUNSELLOR RHYTHM STRIP 01/15/2025 12:00 AM CAREERS COUNSELLOR RHYTHM STRIP 01/15/2025 12:00 AM CAREERS COUNSELLOR POCT GLUCOSE Routine 01/14/2025 9:10 PM CAREERS COUNSELLOR POCT GLUCOSE Routine 01/14/2025 3:45 PM CAREERS COUNSELLOR POCT GLUCOSE Routine 01/14/2025 12:08 PM CAREERS COUNSELLOR POCT GLUCOSE Routine 01/14/2025 8:00 AM CAREERS COUNSELLOR POCT GLUCOSE Routine 01/14/2025 4:53 AM CAREERS COUNSELLOR MANUAL DIFFERENTIAL Routine 01/14/2025 4 :52 AM CAREERS COUNSELLOR CBC WITH AUTO DIFFERENTIAL Routine 01/14/2025 4:52 AM CAREERS COUNSELLOR COMPLETE BLOOD COUNT (CBC) WITH DIFF Routine 01/14/2025 4:52 AM CAREERS COUNSELLOR BASIC METABOLIC PANEL W/ CALCIUM TOTAL Routine 01/14/2025 4:52 AM CAREERS COUNSELLOR MRSA NASAL PCR Routine 01/14/2025 12:49 AM CAREERS COUNSELLOR MRSA NASAL BY PCR Routine 01/14/2025 12:49 AM CAREERS COUNSELLOR RHYTHM STRIP 01/14/2025 12:00 AM CAREERS COUNSELLOR RHYTHM STRIP 01/14/2025 12:00 AM CAREERS COUNSELLOR RHYTHM STRIP 01/14/2025 12:00 AM CAREERS COUNSELLOR POCT GLUCOSE Routine 01/13/2025 9:16 PM CAREERS COUNSELLOR BLOOD GASES, ARTERIAL W/ O2 SATURATION STAT 01/13/2025 8:10 PM CAREERS COUNSELLOR XR CHEST SINGLE VIEW PORTABLE Stat with Interpretation 01/13/2025 7:29 PM CAREERS COUNSELLOR POCT GLUCOSE Routine 01/13/2025 4:42 PM CAREERS COUNSELLOR POCT GLUCOSE Routine 01/13/2025 11:51 AM CAREERS COUNSELLOR INCENTIVE SPIROMETRY RT-INITIAL Routine 01/13/2025 9:49 AM CAREERS COUNSELLOR POCT GLUCOSE Routine 01/13/2025 7:01 AM CAREERS COUNSELLOR CBC WITH AUTO DIFFERENTIAL Routine 01/13/2025 5:28 AM CAREERS COUNSELLOR COMPLETE BLOOD COUNT (CBC) WITH DIFF Routine 01/13/2025 5:28 AM CAREERS COUNSELLOR BASIC METABOLIC PANEL W/ CALCIUM TOTAL Routine 01/13/2025 5:28 AM CAREERS COUNSELLOR RHYTHM STRIP 01/13/2025 12:00 AM CAREERS COUNSELLOR RHYTHM STRIP 01/13/2025 12:00 AM CAREERS COUNSELLOR RHYTHM STRIP 01/13/2025 12:00 AM CAREERS COUNSELLOR POCT GLUCOSE Routine 01/12/2025 8:05 PM CAREERS COUNSELLOR POCT GLUCOSE Routine 01/12/2025 4:51 PM CAREERS COUNSELLOR POCT GLUCOSE Routine 01/12/2025 11:07 AM CAREERS COUNSELLOR NM LUNG PERFUSION SCAN Stat with Interpretation 01/12/2025 8:56 AM CAREERS COUNSELLOR POCT GLUCOSE Routine 01/12/2025 7:31 AM CAREERS COUNSELLOR CBC WITH AUTO DIFFERENTIAL STAT 01/12/2025 5:07 AM CAREERS COUNSELLOR COMPLETE BLOOD COUNT (CBC) WITH DIFF STAT 01/12/2025 5:07 AM CAREERS COUNSELLOR BASIC METABOLIC PANEL W/ CALCIUM TOTAL STAT 01/12/2025 5:07 AM CAREERS COUNSELLOR XR CHEST SINGLE VIEW PORTABLE STAT 01/12/2025 12:28 AM CAREERS COUNSELLOR RHYTHM STRIP 01/12/2025 12:00 AM CAREERS COUNSELLOR RHYTHM STRIP 01/12/2025 12:00 AM CAREERS COUNSELLOR RHYTHM STRIP 01/12/2025 12:00 AM CAREERS COUNSELLOR AEROSOL NEBULIZER-INITIAL STAT 01/11/2025 10:50 PM CAREERS COUNSELLOR CBC WITH AUTO DIFFERENTIAL STAT 01/11/2025 10:29 PM CAREERS COUNSELLOR HEMOGLOBIN A1C W/ ESTIMATED GLUCOSE STAT 01/11/2025 10:29 PM CAREERS COUNSELLOR D-DIMER STAT 01/11/2025 10:29 PM CAREERS COUNSELLOR CMP (COMPREHENSIVE METABOLIC PANEL) STAT 01/11/2025 10:29 PM CAREERS COUNSELLOR COMPLETE BLOOD COUNT (CBC) WITH DIFF STAT 01/11/2025 10:29 PM CAREERS COUNSELLOR EKG 12 LEAD STAT 01/11/2025 10:25 PM CAREERS COUNSELLOR RESPIRATORY PATHOGEN ARRAY Routine 01/11/2025 10:24 PM CAREERS COUNSELLOR RSV,SARS-COV-2,INFL UENZA A&B BY PCR STAT 01/11/2025 10:24 PM CAREERS COUNSELLOR POCT GLUCOSE STAT 01/11/2025 10:18 PM CAREERS COUNSELLOR EKG SCAN 01/11/2025 12:00 AM CAREERS COUNSELLOR STOOL, OCCULT BLOOD, DIAGNOSTIC, VIA GUAIAC Routine 03/11/2020 12:35 AM CDT BRIGITTE DIAG BILATERAL DIGITAL W CAD W LANDEN Routine 04/30/2018 11:03 AM CDT Unspecified lump in the left breast, upper inner quadrant from Last 3 Months or Most Recently Relevant to Health Maintenance Results * (ABNORMAL) POCT Glucose (01/19/2025 11:16 AM CAREERS COUNSELLOR) Only the most recent of31 resultswithin the time period is included. GLUCOSE,BEDSID E POCT 305(H) 70 - 99 mg/dL 01/19/2025 11:22 AM CAREERS COUNSELLOR [facility] Comment:Patient RN Performed Blood 01/19/2025 11:1 6 AM CAREERS COUNSELLOR 01/19/2025 11:22 AM CAREERS COUNSELLOR us None Provider POINT OF CARE TESTING Final Resu lt [facility] [address] [place] [address] * (ABNORMAL) Manual Differential (01/19/2025 6:04 AM CAREERS COUNSELLOR) Only the most recent of6 resultswithin the time period is included. BANDS % 4.0 % 01/19/2025 7:18 AM [facility] NEUTROPHILS % 62.0 47.0 - 73.0 % 01/19/2025 7:18 AM [facility] LYMPHOCYTES % 24.0 18.0 - 42.0 % 01/19/2025 7:18 AM [facility] MONOCYTES % 6.0 4.0 - 12.0 % 01/19/2025 7:18 AM CAREERS COUNSELLOR [facility] EOSINOPHILS % 1.0 0.0 - 5.0 % 01/19/2025 7:18 AM [facility] MYELOCYTES % 3.0(H) <=0.0 % 01/19/2025 7:18 AM [facility] NEUTROPHILS ABSOLUTE 7.80(H) 1.60 - 7.70 10(3)/mcL 01/19/2025 7:18 AM [facility] LYMPHOCYTES ABSOLUTE 2.84 1.30 - 3.20 10(3)/mcL 01/19/2025 7:18 AM [facility] MONOCYTES ABSOLUTE 0.71 0.20 - 1.00 10(3)/mcL 01/19/2025 7:18 AM [facility] EOSINOPHILS ABSOLUTE 0.12 0.00 - 0.40 10(3)/mcL 01/19/2025 7:18 AM [facility] NRBC PER 100 WBC 2 02/27/20 25 7:18 AM CAREERS COUNSELLOR [facility] RBC MORPHOLOGY CONSISTENT WITH INDICES Yes 01/19/2025 7:18 AM CAREERS COUNSELLOR [facility] POLYCHROMASIA 1+ 01/19/2025 7:18 AM CAREERS COUNSELLOR [facility] TOXIC GRANULATION 1+ 2 025 7:18 AM CAREERS COUNSELLOR [facility] GIANT PLATELETS 1+ 7:18 AM CAREERS COUNSELLOR [facility] LARGE PLATELETS 1+ 5 7:18 AM CAREERS COUNSELLOR [facility] REACTIVE LYMPHOCYTES 2 01/19/2025 7:18 AM [facility] Blood Venipuncture / Unknown 01/19/2025 6:04 AM CAREERS COUNSELLOR 01/19/2025 6:34 AM CAREERS COUNSELLOR Narrative [facility] - 01/19/2025 7:18 AM CAREERS COUNSELLOR Anisocytosis Saba Lin ELEVATOR OPERATOR FREIGHT, BARREL PLATER HEMATOLOGY ORDERABLES F inal Result [facility] [address] [place] [address] * CBC with Auto Differential (01/19/2025 6:04 AM CAREERS COUNSELLOR) Only the most recent of9 resultswithin the time period is included. WBC 11.82 4.00 - 12.00 10(3)/mcL 01/19/2025 7:18 AM [facility] RBC 4.17 3.80 - 5.30 10(6)/mcL 01/19/2025 7:18 AM [facility] HEMOGLOBIN (HGB) 12.5 12.0 - 15.8 g/dL 01/19/2025 7:18 AM [facility] HEMATOCRIT (HCT) 38.9 36.0 - 47.0 % 01/19/2025 7:18 AM [facility] MCV 93.3 82.0 - 96.0 fL 01/19/2025 7:18 AM [facility] MCH 30.0 26.0 - 34.0 pg 01/19/2025 7:18 AM [facility] MCHC 32.1 31.0 - 36.0 g/dL 01/19/2025 7:18 AM [facility] PLATELET COUNT 173 140 - 440 10(3)/mcL 01/19/2025 7:18 AM [facility] RDW 13.2 11.8 - 15.5 % 01/19/2025 7:18 AM [facility] MPV 11.2 9.7 - 12.4 fL 01/19/2025 7:18 AM [facility] NRBC PER 100 WBC 0 01/19/2025 7:18 AM [facility] RESULTS ARE CONSISTENT WITH PERIPHERAL SMEAR REVIEW Yes 01/19/2025 7:18 AM [facility] Blood Venipuncture / Unknown 01/19/2025 6:04 AM CAREERS COUNSELLOR 01/19/2025 6:34 AM CAREERS COUNSELLOR Narrative [facility] - 01/19/2025 7:18 AM CAREERS COUNSELLOR Platelet count maybe slightly decreased due to the presence of platelet clumping. us Saba Lin ELEVATOR OPERATOR FREIGHT, BARREL PLATER HEMATOLOGY ORDERABLES F inal Result [facility] [address] [place] [address] * (ABNORMAL) BMP with Ca, Total (01/19/2025 6:04 AM CAREERS COUNSELLOR) Only the most recent of8 resultswithin the time period is included. SODIUM 142 136 - 145 mmol/L 01/19/2025 7:00 AM [facility] POTASSIUM 3.5 3.5 - 5.1 mmol/L 01/19/2025 7:00 AM [facility] CHLORIDE 109(H) 98 - 107 mmol/L 01/19/2025 7:00 AM [facility] CO2, VENOUS 27 22 - 30 mmol/L 01/19/2025 7:00 AM CAREERS COUNSELLOR [facility] ANION GAP 9.5 <18.0 mmol/L 01/19/2025 7:00 AM [facility] GLUCOSE 160(H) 70 - 99 mg/dL 01/19/2025 7:00 AM [facility] BUN 17 10 - 20 mg/dL 01/19/2025 7:00 AM [facility] CREATININE, BLOOD 0.80 0.60 - 1.00 mg/dL 01/19/2025 7:00 AM [facility] BUN/CREATININE RATIO 21(H) 12 - 20 ratio 01/19/2025 7:00 AM [facility] CALCIUM 8.3(L) 8.7 - 10.5 mg/dL 01/19/2025 7:00 AM [facility] GFR, ESTIMATED >60 >=60 01/19/2025 7:00 AM [facility] Comment: Creatinine Clearance is the preferred criteria for selecting drug dose adjustments in renally impaired patients. The GFR is provided as additional pertinent clinical information. GFR is reported in mL/min/1.73 sq m. Calculation based on the Chronic Kidney Disease Epidemiology Collaboration (CKD- EPI) equation refit without adjustment for race. GFR, EST. >60 >=60 025 7:00 AM CAREERS COUNSELLOR [facility] GFR, EST. NONAFRICAN >60 >=60 01/19/2025 7:00 AM [facility] Blood Venipuncture / Unknown 01/19/2025 6:04 AM CAREERS COUNSELLOR 01/19/2025 6:34 AM CAREERS COUNSELLOR us Saba Lin APRN, BARREL PLATER CHEMISTRY ORDERABLES Fi nal Result [facility] [address] [place] [address] * RHYTHM STRIP (01/19/2025 12:00 AM CAREERS COUNSELLOR) Only the most recent of27 resultswithin the time period is included. 01/19/2025 us Provider Scan IMG ECG ORDERABLES Final Result RESULTING AGENCY * (ABNORMAL) Vancomycin Level (01/18/2025 6:00 AM CAREERS COUNSELLOR) Only the most recent of3 resultswithin the time period is included. VANCOMYCIN RESULT 17(L) 20 - 40 mcg/mL 01/18/2025 7:40 AM CAREERS COUNSELLOR [facility] Blood Venipuncture / Unknown 01/18/2025 6:00 AM CAREERS COUNSELLOR 01/18/2025 6:20 AM CAREERS COUNSELLOR Narrative [facility] - 01/18/2025 7:40 AM CAREERS COUNSELLOR CALL PHARMACY FOR THERAPEUTIC RANGE. Gabriel Garay MD CHEMISTRY ORDERABLES Final Res ult [facility] [address] [place] [address] * XR CHEST SINGLE VIEW PORTABLE (01/16/2025 10:24 AM CAREERS COUNSELLOR) Only the most recent of3 resultswithin the time period is included. Anatomical Region Laterality Modality Chest N/A Computed Radiogr aphy 01/16/2025 12:1 9 PM CAREERS COUNSELLOR Impressions 01/16/2025 12:21 PM CAREERS COUNSELLOR IMPRESSION: Similar-appearing airspace and interstitial opacities throughout the left lung. Bilateral peribronchial thickening which can be seen with bronchitis. Narrative 01/16/2025 12:21 PM CAREERS COUNSELLOR EXAM DESCRIPTION: XR CHEST SINGLE VIEW PORTABLE REASON FOR STUDY: evolution of the pneumonia. pt was admitted for chest congestion, cough, and fever few day prior to being admitted. hx of asthma and HTN TECHNIQUE: Single radiographic view of the chest. COMPARISON: 01/13/2025 01/12/2025 03/09/2020 FINDINGS: Suboptimal evaluation due to patient positioning, rotation, and/or technique. Findings made within these confines. LINES/TUBES: None. LUNGS: Similar-appearing airspace interstitial opacities throughout the left lung. No pneumothorax. No pleural effusion. Bilateral peribronchial thickening. HEART/MEDIASTINUM: Unchanged cardiomediastinal contours. Accentuated by technique. Similar-appearing large hiatal hernia. BONES/SOFT TISSUES: No acute osseous abnormality. THIS IS AN ELECTRONICALLY VERIFIED FINAL REPORT 01/16/2025 12:19 PM - Electronically signed by Moe Avendano M.D. NS: NS Report ID: [id number] Reading Location: [id number] Procedure Note Moe Avendano MD - 01/16/2025 EXAM DESCRIPTION: XR CHEST SINGLE VIEW PORTABLE REASON FOR STUDY: evolution of the pneumonia. pt was admitted for chest congestion, cough, and fever few day prior to being admitted. hx of asthma and HTN TECHNIQUE: Single radiographic view of the chest. COMPARISON: 01/13/2025 01/12/2025 03/09/2020 FINDINGS: Suboptimal evaluation due to patient positioning, rotation, and/or technique. Findings made within these confines. LINES/TUBES: None. LUNGS: Similar-appearing airspace interstitial opacities throughout the left lung. No pneumothorax. No pleural effusion. Bilateral peribronchial thickening. HEART/MEDIASTINUM: Unchanged cardiomediastinal contours. Accentuated by technique. Similar-appearing large hiatal hernia. BONES/SOFT TISSUES: No acute osseous abnormality. THIS IS AN ELECTRONICALLY VERIFIED FINAL REPORT 01/16/2025 12:19 PM - Electronically signed by Moe Avendano M.D. NS: NS Report ID: [id number] Reading Location: [id number] IMPRESSION: Similar-appearing airspace and interstitial opacities throughout the left lung. Bilateral peribronchial thickening which can be seen with bronchitis. Gabriel Garay MD [facility] DIAGNOSTIC ORDERABLES Yue l Result * (ABNORMAL) MRSA NASAL PCR (01/14/2025 12:49 AM CAREERS COUNSELLOR) MRSA PCR RESULT Positive(A ) Negative, Invalid 01/14/2025 2:03 AM CAREERS COUNSELLOR [facility] Other NASOPHARYNGEAL SWAB / Unknown Non-Phlebotomy Collection / Unknown 01/14/2025 12:49 AM CAREERS COUNSELLOR 01/14/2025 12:55 AM CAREERS COUNSELLOR us Saba Lin ELEVATOR OPERATOR FREIGHT, BARREL PLATER MICROBIOLOGY - GENERAL ORDERABLES Final Result [facility] [address] [place] [address] * (ABNORMAL) Blood Gases, Arterial w/ O2 Saturation (01/13/2025 8:10 PM CAREERS COUNSELLOR) Pathologist [facility] O2 STATUS HHFNC: 50 LPM,80% FiO2 01/13/2025 8:14 PM CAREERS COUNSELLOR [facility] PH ARTERIAL 7.31(L) 7.35 - 7.45 01/13/2025 8:14 PM [facility] PC02 (ARTERIAL) 41 35 - 45 mmHg 01/13/2025 8:14 PM [facility] PO2 (ARTERIAL) 79 75 - 100 mmHg 01/13/2025 8:14 PM [facility] O2 SAT ART, MEASURED 95 94 - 100 % 01/13/2025 8:14 PM [facility] BASE ARTERIAL -5.0(L) -2.0 - 2.0 mmol/L 01/13/2025 8:14 PM [facility] BICARBONATE 20.4(L) 22.0 - 26.0 mmol/L 01/13/2025 8:14 PM CAREERS COUNSELLOR [facility] RANDY'S TEST RESULTS Positive - Right Radial 01/13/2025 8:14 PM [facility] CARBOXYHEMOGLOBIN 1.4 0.0 - 5.0 % 01/13/2025 8:14 PM [facility] METHEMOGLOBIN 0.4 0.0 - 1.5 % 01/13/2025 8:14 PM [facility] ART Blood Gas Arterial Punctur e / Unknown 01/13/2025 8:10 PM CAREERS COUNSELLOR 01/13/2025 8:10 PM CAREERS COUNSELLOR Keisha Samano MD CHEMISTRY ORDERABLES Final Result [facility] [address] [place] [address] * NM LUNG PERFUSION SCAN (01/12/2025 8:56 AM CAREERS COUNSELLOR) Anatomical Region Laterality Modality Chest N/A Nuclear Medicine 01/12/2025 9:09 AM CAREERS COUNSELLOR Impressions 01/12/2025 9:11 AM CAREERS COUNSELLOR IMPRESSION: 1. Low probability for pulmonary embolism. Narrative 01/12/2025 9:11 AM CAREERS COUNSELLOR EXAM DESCRIPTION: NM LUNG PERFUSION SCAN RADIOPHARMACEUTICAL: 6.3 mCi Tc-99m MAA via a left antecubital vein IV site REASON FOR STUDY: Weakness with elevated D-dimer. TECHNIQUE: Standard multi-planar perfusion scintigrams were obtained. COMPARISON: Chest radiograph 01/12/2025 FINDINGS: Perfusion images obtained in multiple projections show enlargement of the cardiomediastinal silhouette. Nonsegmental outline of the large hiatal hernia is seen. There are no large segmental perfusion defects to suggest pulmonary embolism. THIS IS AN ELECTRONICALLY VERIFIED FINAL REPORT 01/12/2025 9:09 AM - Electronically signed by Gunnar Castaneda M.D. LB: LEILANI Report ID: [id number] Reading Location: [id number] Procedure Note Gunnar Castaneda MD - 01/12/2025 EXAM DESCRIPTION: NM LUNG PERFUSION SCAN RADIOPHARMACEUTICAL: 6.3 mCi Tc-99m MAA via a left antecubital vein IV site REASON FOR STUDY: Weakness with elevated D-dimer. TECHNIQUE: Standard multi-planar perfusion scintigrams were obtained. COMPARISON: Chest radiograph 01/12/2025 FINDINGS: Perfusion images obtained in multiple projections show enlargement of the cardiomediastinal silhouette. Nonsegmental outline of the large hiatal hernia is seen. There are no large segmental perfusion defects to suggest pulmonary embolism. THIS IS AN ELECTRONICALLY VERIFIED FINAL REPORT 01/12/2025 9:09 AM - Electronically signed by Gunnar Castaneda M.D. LB: LB Report ID: [id number] Reading Location: [id number] IMPRESSION: 1. Low probability for pulmonary embolism. us Shady Irby MD IMG NM ORDERABLES Fi nal Result * (ABNORMAL) Hemoglobin A1C (if indicated) (01/11/2025 10:29 PM CAREERS COUNSELLOR) [facility] HGB-A1C 11.8(H) 4.0 - 6.0 % 01/12/2025 4:45 AM CAREERS COUNSELLOR [facility] Est Average Glucose 292.0 mg/dL 01/12/2025 4:45 AM CAREERS COUNSELLOR [facility] Blood Venipuncture / Unknown 01/11/2025 10:29 PM CAREERS COUNSELLOR 01/11/2025 10:45 PM CAREERS COUNSELLOR Narrative [facility] - 01/12/2025 4:45 AM CAREERS COUNSELLOR HEMOGLOBIN A1C: DIABETIC PATIENTS: WELL-CONTROLLED: 6.2 - 7.0 INTERMEDIATE WELL-CONTROLLED: 7.0 - 9.0 POORLY-CONTROLLED: >9.0 Specimens containing greater than 5% of Hemoglobin F may result in lower than expected % HbA1C results. us Katy Otero ELEVATOR OPERATOR FREIGHT, BARREL PLATER CHEMISTRY ORDERABLES Yue l Result [facility] [address] [place] [address] * (ABNORMAL) D-Dimer (01/11/2025 10:29 PM CAREERS COUNSELLOR) Pathologist [facility] D DIMER 1.52(H) <0.50 mcg/mL FEU 01/11/2025 11:02 PM CAREERS COUNSELLOR [facility] Blood Venipuncture / Unknown 01/11/2025 10:29 PM CAREERS COUNSELLOR 01/11/2025 10:45 PM CAREERS COUNSELLOR Narrative [facility] - 01/11/2025 11:02 PM CAREERS COUNSELLOR The FDA has approved this method to exclude the diagnosis of DVT and/or PE at the cutoff value of <0.50 mcg/mL FEU. us Shady Irby MD HEMATOLOGY ORDERABLE S Final Result [facility] [address] [place] [address] * (ABNORMAL) CMP (01/11/2025 10:29 PM CAREERS COUNSELLOR) SODIUM 138 136 - 145 mmol/L 01/11/2025 11:07 PM [facility] POTASSIUM 4.7 3.5 - 5.1 mmol/L 01/11/2025 11:07 PM [facility] Comment: Specimen is hemolyzed. In vitro hemolysis could affect results. Clinical correlation advised. CHLORIDE 106 98 - 107 mmol/L 01/11/2025 11:07 PM [facility] CO2, VENOUS 20(L) 22 - 30 mmol/L 01/11/2025 11:07 PM [facility] ANION GAP 16.7 <18.0 mmol/L 01/11/2025 11:07 PM [facility] GLUCOSE 318(H) 70 - 99 mg/dL 01/11/2025 11:07 PM [facility] BUN 21(H) 10 - 20 mg/dL 01/11/2025 11:07 PM [facility] CREATININE, BLOOD 1.83(H) 0.60 - 1.00 mg/dL 01/11/2025 11:07 PM [facility] BUN/CREATININE RATIO 11(L) 12 - 20 ratio 01/11/2025 11:07 PM [facility] TOTAL PROTEIN 8.2(H) 6.0 - 8.0 g/dL 01/11/2025 11:07 PM [facility] Comment: Specimen is hemolyzed. In vitro hemolysis could affect results. Clinical correlation advised. ALBUMIN 3.5 3.5 - 5.0 g/dL 01/11/2025 11:07 PM [facility] A/G RATIO 0.7(L) 1.0 - 2.2 01/11/2025 11:07 PM [facility] CALCIUM 8.9 8.7 - 10.5 mg/dL 01/11/2025 11:07 PM [facility] T BILI 0.6 0.2 - 1.2 mg/dL 01/11/2025 11:07 PM [facility] SGOT (AST) 37 <43 U/L 01/11/2025 11:07 PM [facility] Comment: Specimen is hemolyzed. In vitro hemolysis could affect results. Clinical correlation advised. SGPT (ALT) 17 <56 U/L 01/11/2025 11:07 PM [facility] ALKALINE PHOSPHATASE 66 40 - 150 U/L 01/11/2025 11:07 PM [facility] GFR, ESTIMATED 31(L) >=60 01/11/2025 11:07 PM [facility] Comment: Creatinine Clearance is the preferred criteria for selecting drug dose adjustments in renally impaired patients. The GFR is provided as additional pertinent clinical information. GFR is reported in mL/min/1.73 sq m. Calculation based on the Chronic Kidney Disease Epidemiology Collaboration (CKD- EPI) equation refit without adjustment for race. GFR, EST. 34(L) >=60 025 11:07 PM [facility] GFR, EST. NONAFRICAN 28(L) >=60 01/11/2025 11:07 PM [facility] Blood Venipuncture / Unknown 01/11/2025 10:29 PM CAREERS COUNSELLOR 01/11/2025 10:45 PM CAREERS COUNSELLOR us Shady Irby MD CHEMISTRY ORDERABLES Final Result Performing Organization Address City/[facility] Co de Phone Number [facility] [address] [place] [address] * EKG 12 LEAD (01/11/2025 10:25 PM CAREERS COUNSELLOR) Ventricular Rate 90 BPM EXTERNAL EKG Atrial Rate 90 BPM EXTERNAL EKG P-R Interval 156 ms EXTERNAL EKG QRS Duration 68 ms EXTERNAL EKG Q-T Duration 350 ms EXTERNAL EKG QTC CALCULATION 428 ms EXTERNAL EKG P [place] 19 degrees EXTERNAL EKG R [place] 36 degrees EXTERNAL EKG T [place] 41 degrees EXTERNAL EKG 01/11/2025 10:2 5 PM CAREERS COUNSELLOR Impressions EXTERNAL EKG - 01/12/2025 11:09 PM CAREERS COUNSELLOR Normal sinus rhythm Low voltage QRS Borderline ECG ~ Confirmed by Ventura Lew ([id number]) on 01/12/2025 11:09:38 PM Narrative Procedure Note Ventura Lew MD - 01/12/2025 IMPRESSION: Normal sinus rhythm Low voltage QRS Borderline ECG ~ Confirmed by Ventura Lew ([id number]) on 01/12/2025 11:09:38 PM Shady Irby MD IMG ECG ORDERABLES F inal Result Performing Organization Address City/[facility]/ZIP Co de Phone Number EXTERNAL EKG * (ABNORMAL) Respiratory Pathogen Array (01/11/2025 10:24 PM CAREERS COUNSELLOR) Pathologist [facility] ADENOVIRUS NON DETECTED NON DETECTED [facility] BIOFIRE TOR 01/16/2025 3:09 PM CAREERS COUNSELLOR [facility] CORONAVIRUS 229E NON DETECTED NON DETECTED [facility] BIOFIRE TOR 01/16/2025 3:09 PM CAREERS COUNSELLOR [facility] CORONAVIRUS HKU1 NON DETECTED NON DETECTED [facility] BIOFIRE TOR 01/16/2025 3:09 PM CAREERS COUNSELLOR [facility] CORONAVIRUS NL 63 NON DETECTED NON DETECTED [facility] BIOFIRE TORCH 01/16/2025 3:09 PM CAREERS COUNSELLOR [facility] CORONAVIRUS OC43 NON DETECTED NON DETECTED [facility] 01/16/2025 3:09 PM CAREERS COUNSELLOR [facility] METAPNEUMOVIRUS NON DETECTED NON DETECTED [facility] 01/16/2025 3:09 PM CAREERS COUNSELLOR [facility] RHINO/ENTEROVIRUS NON DETECTED NON DETECTED [facility] 01/16/2025 3:09 PM CAREERS COUNSELLOR [facility] INFLUENZA A DETECTED(A) NON DETECTED, INVALID [facility] 01/16/2025 3:09 PM CAREERS COUNSELLOR [facility] Comment:Performance of detec ting Influenza A may vary if other Influenza strains are circulating or a novel Influenza A virus emerges. INFLUENZA A, H1 NON DETECTED NON DETECTED, INVALID [facility] 01/16/2025 3:09 PM CAREERS COUNSELLOR [facility] INFLUENZA A, H3 DETECTED(A) NON DETECTED, INVALID [facility] 01/16/2025 3:09 PM CAREERS COUNSELLOR [facility] INFLUENZA A, 2009 H1 NON DETECTED NON DETECTED, INVALID [facility] 01/16/2025 3:09 PM CAREERS COUNSELLOR [facility] INFLUENZA B NON DETECTED NON DETECTED, INVALID [facility] 01/16/2025 3:09 PM CAREERS COUNSELLOR [facility] PARAINFLU VIRUS 1 NON DETECTED NON DETECTED [facility] 01/16/2025 3:09 PM CAREERS COUNSELLOR [facility] PARAINFLU VIRUS 2 NON DETECTED NON DETECTED [facility] 01/16/2025 3:09 PM CAREERS COUNSELLOR [facility] PARAINFLU VIRUS 3 NON DETECTED NON DETECTED [facility] 01/16/2025 3:09 PM CAREERS COUNSELLOR [facility] PARAINFLU VIRUS 4 NON DETECTED NON DETECTED [facility] 01/16/2025 3:09 PM CAREERS COUNSELLOR [facility] RESP SYNCITIAL VIRUS NON DETECTED NON DETECTED [facility] 01/16/2025 3:09 PM CAREERS COUNSELLOR [facility] BORDETELLA PERTUSSIS NON DETECTED NON DETECTED [facility] 01/16/2025 3:09 PM CAREERS COUNSELLOR [facility] Comment:It is recommended th at specimens found to be negative for Bordetella after testing with Film Array RP be confirmed by an alternate method if clinically indicated. CHLAMYDIA PNEUMONIAE NON DETECTED NON DETECTED [facility] 01/16/2025 3:09 PM CAREERS COUNSELLOR [facility] MYCOPLASMA PNEUMONIAE NON DETECTED NON DETECTED [facility] 01/16/2025 3:09 PM CAREERS COUNSELLOR [facility] BORDETELLA PARAPERTUSSIS ([id number]) NON DETECTED NON DETECTED [facility] 01/16/2025 3:09 PM CAREERS COUNSELLOR [facility] SARSCOV2 NOT DETECTED (Reference Range for this test is Not Detected) [facility] 01/16/2025 3:09 PM CAREERS COUNSELLOR [facility] Comment:This test was perfor med by a Reverse Parts And Service Manager PCR Method. Other NASOPHARYNGEAL STRUCTURE / Unknown Non-Phlebotomy Collection / Unknown 01/11/2025 10:24 PM CAREERS COUNSELLOR 01/16/2025 9:54 AM CAREERS COUNSELLOR Gabriel Garay MD MICROBIOLOGY - GENERAL ORDERAB LES Final Result [facility] [address] [place] [address], * (ABNORMAL) CHERRIE-COV-2 Flu RSV - (Quad PCR) (01/11/2025 10:24 PM CAREERS COUNSELLOR) FLU A Positive(A) Negative, Error 01/11/2025 11:18 PM CAREERS COUNSELLOR [facility] FLU B Negative Negative 01/11/2025 11:18 PM CAREERS COUNSELLOR [facility] RESP SYNC VIRUS Negative Negative 11:18 PM CAREERS COUNSELLOR [facility] SARSCOV2 NOT DETECTED (Reference Range for this test is Not Detected) 01/11/2025 11:18 PM CAREERS COUNSELLOR [facility] Comment:This test was perfor med by a Reverse Parts And Service Manager PCR Method. Swab NASOPHARYNGEAL SWAB / Unknown Non-Phlebotomy Collection / Unknown 01/11/2025 10:24 PM CAREERS COUNSELLOR 01/11/2025 10:38 PM CAREERS COUNSELLOR us Shady Irby MD MICROBIOLOGY - GENER AL ORDERABLES Final Result Performing Organization Address [facility] Co de Phone Number [facility] [address] [place] [address] * EKG SCAN (01/11/2025 12:00 AM CAREERS COUNSELLOR) 01/11/2025 us Provider Scan IMG ECG ORDERABLES Final Result Performing Organization Address [facility] Co de Phone Number RESULTING AGENCY * Stool, Occult Blood, Diagnostic (03/11/2020 12:35 AM CDT) OCCULT BLOOD DIAG, GI BLEED Negative Negative 03/11/2020 1:11 AM CDT [facility] Stool specimen (specimen) STOOL SPECIMEN / Unknown Non-Phlebotomy Collection / Unknown 03/11/2020 12:35 AM CDT 03/11/2020 12:41 AM CDT Alyssia Leyva APRN, BARREL PLATER BODY FLUIDS & STOOL S ORDERABLES Final Result Performing Organization Address [facility] de Phone Number [facility] [address] [place] [address] * BRIGITTE DIAG BILATERAL DIGITAL W CAD W LANDEN (04/30/2018 11:03 AM CDT) Anatomical Region Laterality Modality breast Bilateral Mammography 04/30/2018 10:1 8 AM CDT Narrative 05/01/2018 6:12 AM CDT - BRIGITTE DIAG BILATERAL DIGITAL W CAD W LANDEN - BRIGITTE US BREAST LIMITED LT BILATERAL DIGITAL DIAGNOSTIC MAMMOGRAM 3D/2D WITH CAD AND TARGETED LEFT ULTRASOUND WITH MEDIOLATERAL OBLIQUE CRANIOCAUDAL: 04/30/2018 The study was acquired using digital technology and interpreted from soft copy. Current study was also evaluated with ICAD version 7.2. CLINICAL: Diagnostic study. Patient reports a left breast lump inferior at the 12 o'clock region (indicated with palpable lump marker). Patient reports redness in that area and a small bite joselin approximately 1 month ago. Patient informed physician right away and was given antibiotics to take and has finished taking them. Multiple images of both breasts taken due to patient's hypersthenic body habitus. No problems to report with the right. No personal history of cancer. No family history of breast cancer. COMPARISONS: Comparison is made to exams dated: 11/03/2006, 11/04/2013, 10/27/2006, and 10/27/2006 [facility]. BREAST TISSUE:There are scattered fibroglandular densities in both breasts. FINDINGS: No significant masses, calcifications, or other findings are seen in either breast on the mammogram. Targeted ultrasound of the left breast at the area of concern at the 11 o'clock position 20 centimeters from nipple demonstrates a hypoechoic lesion in the skin measuring 1.8 x 0.9 x 0.4 centimeters corresponding to an area of erythema and scabbing seen on skin. No breast parenchymal lesion is identified. IMPRESSION: OVERALL STUDY BIRADS: 2 BENIGN There is no mammographic or targeted sonographic evidence of malignancy. There is a superficial skin lesion at the 11 o'clock position, 20 centimeters from the nipple within the left breast for which clinical follow up is recommended. A 1 year screening mammogram is recommended. The patient has been or will be contacted. Electronically signed by: Sintia Duarte M.D. ll/:04/30/2018 11:30:16 Layer Out Plate Glass: Marcia Resendiz (Chandu), [facility] letter sent: Normal Exam Reading location: [facility] OVERALL STUDY BIRADS: 2 Benign Procedure Note Sintia Duarte MD - 05/01/2018 - BRIGITTE DIAG BILATERAL DIGITAL W CAD W LANDEN - BRIGITTE US BREAST LIMITED LT BILATERAL DIGITAL DIAGNOSTIC MAMMOGRAM 3D/2D WITH CAD AND TARGETED LEFT ULTRASOUND WITH MEDIOLATERAL OBLIQUE CRANIOCAUDAL: 04/30/2018 The study was acquired using digital technology and interpreted from soft copy. Current study was also evaluated with ICAD version 7.2. CLINICAL: Diagnostic study. Patient reports a left breast lump inferior at the 12 o'clock region (indicated with palpable lump marker). Patient reports redness in that area and a small bite joselin approximately 1 month ago. Patient informed physician right away and was given antibiotics to take and has finished taking them. Multiple images of both breasts taken due to patient's hypersthenic body habitus. No problems to report with the right. No personal history of cancer. No family history of breast cancer. COMPARISONS: Comparison is made to exams dated: 11/03/2006, 11/04/2013, 10/27/2006, and 10/27/2006 [facility]. BREAST TISSUE:There are scattered fibroglandular densities in both breasts. FINDINGS: No significant masses, calcifications, or other findings are seen in either breast on the mammogram. Targeted ultrasound of the left breast at the area of concern at the 11 o'clock position 20 centimeters from nipple demonstrates a hypoechoic lesion in the skin measuring 1.8 x 0.9 x 0.4 centimeters corresponding to an area of erythema and scabbing seen on skin. No breast parenchymal lesion is identified. IMPRESSION: OVERALL STUDY BIRADS: 2 BENIGN There is no mammographic or targeted sonographic evidence of malignancy. There is a superficial skin lesion at the 11 o'clock position, 20 centimeters from the nipple within the left breast for which clinical follow up is recommended. A 1 year screening mammogram is recommended. The patient has been or will be contacted. Electronically signed by: Sintia Duarte M.D. ll/:04/30/2018 11:30:16 Layer Out Plate Glass: Marcia Resendiz (R), [facility] letter sent: Normal Exam Reading location: [facility] OVERALL STUDY BIRADS: 2 Benign Delia Yanez ELEVATOR OPERATOR FREIGHT, BARREL PLATER IMG MAMMO ORDERABLES F inal Result from Last 3 Months or Most Recently Relevant to Health Maintenance Additional Health Concerns Infection Onset Date Last Indicated MRSA 01/14/2025 01/14/2025 Insurance [facility] Advance Directives * Full Code (Latest Code Status on File) Date Activated Date Inactivated Comments 01/12/2025 3:25 AM CPR-Full Treat ment: FULL ARREST: Attempt Resuscitation/CPR wit intubation and mechanical ventilation. PRE-ARREST: Use entire range of life support measures to stabilize the patient. * Full Code Date Activated Date Inactivated Comments 03/10/2020 7:24 AM 03/11/2020 4:20 PM CPR-Full Lv atment: FULL ARREST: Attempt Resuscitation/CPR wit intubation and mechanical ventilation. PRE-ARREST: Use entire range of life support measures to stabilize the patient. Care Teams Manufacturing Area Manager Relationship Specialty Start Date End Date Armen Johns MD [address] [place] [address] PCP - General Family Medicine 05/26/22 Analy Wilkerson, ELEVATOR OPERATOR FREIGHT, BARREL PLATER Nurse Practitioner Advanced Practice Nurse 07/25/16
--- OUTSIDE RECORDS SUMMARY | 2025-01-26 13:27 | XMS_ITS | Clinical Summary ---
Author Organization [facility] Address [address] [place] [address] Care Team Providers Care Stack Yield Engineer Name Role Phone Nena Garcia NP Unavailable [phone] Armen Johns MD Primary Care Provider [phone] Allergies Active Allergy Reactions Criticality Noted Date [...] 9 Active blood-glucose meter (ONETOUCH ULTRA2 METER) [facility] USE DIRECTED TO TEST BLOOD SUGAR 6 [...] neuropathy, without long-term current use of insulin ([facility]) 03/17/2019 Assessment & Plan (03/17/2019 4:18 PM CDT): 58-year-old woman with history of type 2 diabetes admitted March 12, 2019 after partial traumatic amputation right foot now post [id number] amputation. She previously was intolerant of metformin due to GI side effects and due to costs was not able to stay on GLP-1 agents. We are seeing her to assist in management of her diabetes. Blood sugar: Blood sugars last 24 hours [...] (03/12/2019): Added automatically from request for surgery [id number] Assessment & Plan (03/17/2019 4:19 PM CDT): We will work to improve glycemic control to assist in wound healing. Patient understands the need for long-term stable glycemic control. Side effects of the sulfonylurea agents were discussed in detail with her. 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 Not on file Not on file Obstetrics History Last Filed Vital Signs Vital Sign Reading Time Taken Comments Blood Pressure 122/74 10/16/2024 6:48 PM [employer] Pulse 70 10/16/2024 6:48 PM [employer] Temperature 36.7 C (98.1 F) 10/16/2024 6:48 PM [employer] Respiratory Rate 17 10/16/2024 6:48 PM [employer] Oxygen Saturation 98% 10/16/2024 6:48 PM [employer] Inhaled Oxygen Concentration - - Weight 136.1 kg (300 lb) 10/16/2024 6:48 PM [employer] per patient Height 182.9 cm (6') 10/16/2024 6:48 PM [employer] Body Mass Index 40.69 10/16/2024 6:48 PM [employer] Plan of Treatment Health Maintenance Due Date [...] Procedure Name Priority Date/Time Associated Diagnosis Comments LIPID PANEL Routine 03/13/2019 1:03 AM CDT HEMOGLOBIN A1C STAT 03/12/2019 2:48 PM CDT DIGITAL MAMMOGRAPHY Routine 11/04/2013 2 :19 PM [employer] from Last 3 Months or Most Recently Relevant to Health Maintenance Results * Lipid panel (03/13/2019 1:03 AM CDT) Cholesterol 182 30 - 199 mg/dL [facility] Comment: Interpretive Data Ages < or = 19 years Acceptable: <170 mg/dL Borderline high: 170-199 mg/dL High: >or= 200 mg/dL Ages > or = 20 years Desirable: <200 mg/dL Borderline high: 200-239 mg/dL High: >or= 240 mg/dL Literature References: 1. Expert Panel on Integrated Guidelines for Cardiovascular Health and Risk Reduction in Children and Adolescents. Pediatrics 2011;128:S213 2. NCEP Expert Panel. Circulation 2004;110:227 Current Interpretive Data was last revised on 2018. Triglycerides 78 <=149 mg/dL [facility] Comment: Interpretive Data Ages < or = 9 years Acceptable: <75 mg/dL Borderline high: 75-99 mg/dL High: >or= 100 mg/dL Ages 10 to 20 years Acceptable: <90 mg/dL Borderline high: 90-129 mg/dL High: >or= 130 mg/dL Ages > or = 20 years Desirable: <150 mg/dL Borderline high: 150-199 mg/dL High: 200-499 mg/dL Very high: >or= 499 mg/dL Literature References: 1. Expert Panel on Integrated Guidelines for Cardiovascular Health and Risk Reduction in Children and Adolescents. Pediatrics 2011;128:S213 2. NCEP Expert Panel. Circulation 2004;110:227 Current Interpretive Data was last revised on 2018. HDL 45 >=40 mg/dL [facility] Comment: Interpretive Data Ages < or = 19 years Acceptable: >45 mg/dL Borderline low: 40-45 mg/dL Low: <40 mg/dL Ages > or = 20 years Desirable: >or= 60 mg/dL Low: <40 mg/dL Literature References: 1. Expert Panel on Integrated Guidelines for Cardiovascular Health and Risk Reduction in Children and Adolescents. Pediatrics 2011;128:S213 2. NCEP Expert Panel. Circulation 2004;110:227 Current Interpretive Data was last revised on 2018. LDL, calculated 121 <=129 mg/dL [facility] Comment: Interpretive Data Ages < or = 19 years Acceptable: <110 mg/dL Borderline high: 110-129 mg/dL High: >or= 130 mg/dL Ages > or = 20 years Optimal: <100 mg/dL Near optimal: 100-129 mg/dL Borderline high: 130-159 mg/dL High: >160 mg/dL Literature References: 1. Expert Panel on Integrated Guidelines for Cardiovascular Health and Risk Reduction in Children and Adolescents. Pediatrics 2011;128:S213 2. NCEP Expert Panel. Circulation 2004;110:227 Current Interpretive Data was last revised on 2018. Non-HDL Cholesterol 136 mg/dL [facility] Comment: Interpretive Data Ages < or = 19 years Acceptable: <120 mg/dL Borderline high: 120-144 mg/dL High: >145 mg/dL Ages > or = 20 years When triglycerides are >200 mg/dL, Non-HDL cholesterol is a secondary target of therapy with treatment goals that are 30 mg/dL greater than the LDL cholesterol target. Literature References: 1. Expert Panel on Integrated Guidelines for Cardiovascular Health and Risk Reduction in Children and Adolescents. Pediatrics 2011;128:S213 2. NCEP Expert Panel. Circulation 2004;110:227 Current Interpretive Data was last revised on 2018. Chol/HDL ratio 4 [facility] Blood specimen (specimen) 03/13/2019 1:03 AM CDT 03/13/2019 12:42 PM CDT Narrative [facility] - 03/14/2019 2:21 AM CDT Walker Lake MD LAB BLOOD ORDERABL ES Final Result Performing Organization Address [facility] de Phone Number [facility] Department [place] [address] * (ABNORMAL) Hemoglobin A1c (03/12/2019 2:48 PM CDT) Hgb A1C 9.3(H) 4.0 - 5.6 % [facility] Estimated Average Glucose 220 mg/dL [facility] Comment: The ADA recommends reporting an estimated Average Glucose (eAG) with all Hemoglobin A1c results using the equation derived from a study of 507 normal and diabetic adults. Minority populations were underrepresented and children were not included. (Diabetes Care 31:5618-1895, 2008). The eAG is not equivalent to a fasting glucose. Blood specimen (specimen) 03/12/2019 2:48 PM CDT 03/12/2019 3:01 PM CDT Narrative [facility] - 03/12/2019 9:09 PM CDT us Jhonny Headley MD LAB BLOOD ORDERABLES Final R esult Performing Organization Address [facility] Co de Phone Number [facility] Department [place] [address] * DIGITAL MAMMOGRAPHY (11/04/2013 2:19 PM [employer]) Anatomical Region Laterality Modality Breast Mammography 11/04/2013 2:19 PM [employer] Narrative 11/04/2013 7:55 PM [employer] Screening Mamm Bi Acc#: [id number] DATE OF EXAM: Nov 04 2013 CLINICAL HISTORY: Screening. Family history of breast cancer (great aunt). Performed by: RESULT: Craniocaudal and mediolateral oblique views demonstrate minimal fibroglandular density in the breasts bilaterally, mostly in the upper outer quadrants. A few nodular foci in the right upper outer quadrant are old and stable. No dominant mass suspicious for malignancy, skin thickening, nipple retraction or suspicious cluster of microcalcifications is seen. Digital technology was employed plus computer-aided detection software (R2) was utilized in interpretation of these images. This facility utilizes a reminder system to notify patients of yearly mammograms. IMPRESSION: 1. NO FINDINGS SUSPICIOUS FOR MALIGNANCY. 2. NO SIGNIFICANT CHANGE COMPARED TO FILM SCREEN MAMMOGRAM ON 10/27/2006. BI-RADS CATEGORY 2 - BENIGN FINDINGS Interpreting Physician: PATRICIA HANSON M.D. Read on: Nov 04 2013 2:28P Transcribed by: areli On: Nov 04 2013 3:06P Approved Electronically by: PATRICIA HANSON M.D. on: Nov 04 2013 7:55P Ordering DR: KAVON COSBY Attending DR: KAVON COSBY Procedure Note Provider, MD Joan - 03/17/2017 Screening Mamm Bi Acc#: [id number] DATE OF EXAM: Nov 04 2013 CLINICAL [...] was utilized in interpretation of these images. [facility] utilizes a reminder system to notify patients [...] DR: KAVON COSBY Attending DR: KAVON COSBY us [facility] Provider MD [facility]INZ MAMMO PROCEDURES Yue l Result from Last 3 Months or Most Recently Relevant to Health Maintenance Insurance [facility] PLAN [facility] [place] [id number] Advance Directives For more information, please contact: [phone] * Full Code (Latest Code Status on File) Date Activated Date Inactivated Comments 03/12/2019 4:27 PM 03/17/2019 10:36 PM Care Teams Stack Yield Engineer Relationship Specialty [place] [id number] [address] [address] PCP - General Family Practice 05/27/22 [place] [id number] [address] [address] 03/12/19
--- OUTSIDE RECORDS SUMMARY | 2025-01-26 13:27 | XMS_ITS | Referral Summary ---
Author Organization [facility] Address [address] [place] [address] Care Team Providers Care Chimney Construction Supervisor Name Role Phone Nena Garcia NP Unavailable [phone] Armen Johns MD Primary Care Provider [phone] Allergies Active Allergy Reactions Criticality Noted Date [...] 9 Active blood-glucose meter (ONETOUCH ULTRA2 METER) [facility] USE DIRECTED TO TEST BLOOD SUGAR 6 [...] neuropathy, without long-term current use of insulin ([facility]) 03/17/2019 Assessment & Plan (03/17/2019 4:18 PM CDT): 58-year-old woman with history of type 2 diabetes admitted March 12, 2019 after partial traumatic amputation right foot now post [id number] amputation. She previously was intolerant of metformin [...] (03/12/2019): Added automatically from request for surgery [id number] Assessment & Plan (03/17/2019 4:19 PM CDT): We will work to improve glycemic control to assist in wound healing. Patient understands the need for long-term stable glycemic control. Side effects of the sulfonylurea agents were discussed in detail with her. 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 Not on file Not on file Last Filed Vital Signs Vital Sign Reading Time Taken Comments Blood Pressure 122/74 10/16/2024 6:48 PM SNIPPER Pulse 70 10/16/2024 6:48 PM SNIPPER Temperature 36.7 C (98.1 F) 10/16/2024 6:48 PM SNIPPER Respiratory Rate 17 10/16/2024 6:48 PM SNIPPER Oxygen Saturation 98% 10/16/2024 6:48 PM SNIPPER Inhaled Oxygen Concentration - - Weight 136.1 kg (300 lb) 10/16/2024 6:48 PM SNIPPER per patient Height 182.9 cm (6') 10/16/2024 6:48 PM SNIPPER Body Mass Index 40.69 10/16/2024 6:48 PM SNIPPER Plan of Treatment Not on file Procedures Procedure Name Priority Date/Time Associated Diagnosis Comments LIPID PANEL Routine 03/13/2019 1:03 AM CDT HEMOGLOBIN A1C STAT 03/12/2019 2:48 PM CDT DIGITAL MAMMOGRAPHY Routine 11/04/2013 2 :19 PM SNIPPER from Last 3 Months or Most Recently Relevant to Health Maintenance Results * Lipid panel (03/13/2019 1:03 AM CDT) Cholesterol 182 30 - 199 mg/dL [facility] Comment: Interpretive Data Ages < or [...] revised on 2018. Triglycerides 78 <=149 mg/dL [facility] Comment: Interpretive Data Ages < or [...] revised on 2018. HDL 45 >=40 mg/dL [facility] Comment: Interpretive Data Ages < or [...] on 2018. LDL, calculated 121 <=129 mg/dL [facility] Comment: Interpretive Data Ages < or [...] revised on 2018. Non-HDL Cholesterol 136 mg/dL [facility] Comment: Interpretive Data Ages < or [...] last revised on 2018. Chol/HDL ratio 4 [facility] Blood specimen (specimen) 03/13/2019 1:03 AM CDT 03/13/2019 12:42 PM CDT Narrative [facility] - 03/14/2019 2:21 AM CDT Walker Lake MD LAB BLOOD ORDERABL ES Final Result [facility] Department [place] [address] * (ABNORMAL) Hemoglobin A1c (03/12/2019 2:48 PM CDT) Hgb A1C 9.3(H) 4.0 - 5.6 % [facility] Estimated Average Glucose 220 mg/dL [facility] Comment: The ADA recommends reporting an estimated Average Glucose (eAG) with all Hemoglobin A1c results using the equation derived from a study of 507 normal and diabetic adults. Minority populations were underrepresented and children were not included. (Diabetes Care 31:9499-3547, 2008). The eAG is not equivalent to a fasting glucose. Blood specimen (specimen) 03/12/2019 2:48 PM CDT 03/12/2019 3:01 PM CDT Narrative [facility] - 03/12/2019 9:09 PM CDT us Jhonny Headley MD LAB BLOOD ORDERABLES Final R esult [facility] Department [place] [address] * DIGITAL MAMMOGRAPHY (11/04/2013 2:19 PM SNIPPER) Anatomical Region Laterality Modality Breast Mammography 11/04/2013 2:19 PM SNIPPER Narrative 11/04/2013 7:55 PM SNIPPER Screening Mamm Bi Acc#: [id number] DATE OF EXAM: Nov 04 2013 CLINICAL [...] Joan - 03/17/2017 Screening Mamm Bi Acc#: [id number] DATE OF EXAM: Nov 04 2013 CLINICAL [...] DR: KAVON COSBY Attending DR: KAVON COSBY [facility] Provider MD SAINZ MAMMO PROCEDURES Yue l Result from Last 3 Months or Most Recently Relevant to Health Maintenance Insurance [facility] PLAN [facility] [place] [address] [place] [address] Advance Directives For more information, please contact: [phone] * Full Code (Latest Code Status on File) Date Activated Date Inactivated Comments 03/12/2019 4:27 PM 03/17/2019 10:36 PM Care Teams Chimney Construction Supervisor Relationship Specialty [place] [id number] [address] PCP - General Family Practice 05/27/22 Nena Garcia SAND WHEELER [id number] [address] 03/12/19
== END 2025-01-26 12:02 | disposition home or self-care (01) ==
PROVIDERS: PCP Nurse Practitioner Adult Health; Visit Provider Nurse Practitioner Adult Health
DX: Z87.01 Personal history of pneumonia (recurrent) (principal)
CPT/HCPCS: 71046

== ENCOUNTER 2025-02-27 11:38 | Outpatient (CLI) | payer OTHER, SELFPAY ==
--- OUTSIDE RECORDS SUMMARY | 2025-02-27 13:35 | XMS_ITS | Clinical Summary ---
Author Organization 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 Nitrofurantoin Anaphylaxis 07/25/2016 Nitroglycerin Anaphylaxis 02/04/2025 Penicillin G Shortness of Breath,Itching 01/21/2020 Sulfa [...] 1/2 tab. Active Vitamin D3 1.25 MG (03860 UT) Capsule Take 5,000 Units by mouth [...] by mouth 3 times daily. 5 Active HYDROcodone-linette taminophen (NORCO) 10-325 MG Tablet Take 1 Tablet by mouth every 8 hours as needed for Moderate or more severe pain. Active predniSONE (DELTASONE) 10 MG Tablet Take 3 tabs by mouth everyday for 3 days, then take 2 tabs by mouth every day for 2 days, then 1 tab orally x 1 day and done. 14 Tablet 5 Active Additional Information Patient not taking.Reported on 02/04/2025 ondansetron (ZOFRAN-ODT) 4 MG TABLET DISPERSIBLE DISSOLVE 1 TABLET IN MOUTH EVERY 6 HOURS NEEDED FOR NAUSEA AND VOMITING 5 Active Empagliflozin (Jardiance) 10 MG Tablet Take 10 mg by mouth daily. Active fluconazole (DIFLUCAN) 150 MG Tablet Take one tablet today then one tablet in 72 hours. 2 Tablet 5 Active ciprofloxacin (CIPRO) 500 MG Tablet Take 1 Tablet by mouth 2 times daily for 7 days. 14 Tablet 5 03/22/2 025 Active Problems Problem Noted Date Diagnosed Date [...] Encounters Date Type Department Care Team Description 02/06/2025 Results Follow-Up [facility] [address] [place] [address] Shad Ospina PAC 02/04/2025 10:10 AM CDT Urgent Care Visit [facility] [address] [place] [address] Brittany Hollingsworth APRN, INSURANCE APPLICATION INVESTIGATOR Acute cystitis with hematuria (Primary Dx); Dysuria; Leukocytes in urine Discharge Disposition: Discharged to home or Selfcare 02/04/2025 Travel 01/11/2025 10:11 PM [facility] - 01/19/2025 5:07 PM [facility] Hospital Encounter [address] [address] Shady Irby MD Dianati, Behfar, MD Carmicheal, Crystal Marie, MD Exacerbation of asthma, unspecified asthma severity, unspecified whether persistent Discharge Disposition: Discharged to home or Selfcare 01/11/2025 Travel from Last 3 Months Immunizations Immunization Administration Dates Next Due Influenza Vaccine, Quadrivalent, PF 11/0 11/2021,09/13/2021,03/11/2020,10/30 Influenza, Injectable, Quadrivalent 09/25/2016 Influenza, Seasonal, Injecta ble, Undefined 10/25/2015 Influenza,Split Virus,Trivalent,Injectable,PF 10/27/2013 Pneumococcal Vaccine Adult - 23 Valent 1,03/11/2020 Pneumococcal conjugate PCV20 , polysaccharide [id number] conjugate, adjuvant, PF 05/09/2023 TDAP Vaccine 03/12/2019 [...] = 0.6 oz pur e alcohol) Rarely [facility] Utilities Answer Date Recorded In the past 12 months has th e [employer], gas, oil, or water [employer] threatened to shut off services in your [...] any time in the past 12 m [facility], were you homeless or living in a skilled nursing (including now)? No 01/12/2025 Comments No Sex [...] Sign Reading Time Taken Comments Blood Pressure 138/68 02/04/2025 10:13 AM CDT Pulse 83 02/04/2025 10:13 AM CDT Temperature 36.5 C (97.7 F) 02/04/2025 10:13 AM CDT Respiratory Rate 20 02/04/2025 10:13 AM CDT Oxygen Saturation 92% 02/04/2025 10:13 AM CDT Inhaled Oxygen Concentration - - Weight 128.4 kg (283 lb) 01/12/2025 8:44 AM [facility] Height 182.9 cm (6') 01/12/2025 8:44 AM [facility] Body Mass Index 38.38 01/12/2025 8:44 AM [facility] Plan of Treatment Health Maintenance Due Date Last Done Comments Diabetes: Eye Exam 1962 Diabetes: Foot Exam 1960 Hepatitis C Virus (HCV) Screening 1962 Cologuard 2012 Mammogram 04/30/2019 04/30/2018 Immunochemical Fecal [...] Procedure Name Priority Date/Time Associated Diagnosis Comments CULTURE, URINE Routine 02/04/2025 10:21 AM CDT Leukocytes in urine POCT UA AUTOMATED W/O MICRO Routine 02/04/2025 10:16 AM CDT Dysuria POCT GLUCOSE Routine 01/19/2025 11:16 AM [facility] MANUAL DIFFERENTIAL Routine 01/19/2025 6 :04 AM [facility] CBC WITH AUTO DIFFERENTIAL Routine 01/19/2025 6:04 AM [facility] BASIC METABOLIC PANEL W/ CALCIUM TOTAL Routine 01/19/2025 6:04 AM [facility] COMPLETE BLOOD COUNT (CBC) WITH DIFF Routine 01/19/2025 6:04 AM [facility] POCT GLUCOSE Routine 01/19/2025 5:35 AM [facility] RHYTHM STRIP 01/19/2025 12:00 AM [facility] RHYTHM STRIP 01/19/2025 12:00 AM [facility] POCT GLUCOSE Routine 01/18/2025 10:02 PM [facility] POCT GLUCOSE Routine 01/18/2025 4:28 PM [facility] POCT GLUCOSE Routine 01/18/2025 11:27 AM [facility] POCT GLUCOSE Routine 01/18/2025 6:44 AM [facility] MANUAL DIFFERENTIAL Routine 01/18/2025 6 :00 AM [facility] CBC WITH AUTO DIFFERENTIAL Routine 01/18/2025 6:00 AM [facility] BASIC METABOLIC PANEL W/ CALCIUM TOTAL Routine 01/18/2025 6:00 AM [facility] COMPLETE BLOOD COUNT (CBC) WITH DIFF Routine 01/18/2025 6:00 AM [facility] VANCOMYCIN Timed 01/18/2025 6:00 AM [facility] RHYTHM STRIP 01/18/2025 12:00 AM [facility] RHYTHM STRIP 01/18/2025 12:00 AM [facility] RHYTHM STRIP 01/18/2025 12:00 AM [facility] RHYTHM STRIP 01/18/2025 12:00 AM [facility] POCT GLUCOSE Routine 01/17/2025 7:23 PM [employer] POCT GLUCOSE Routine 01/17/2025 4:23 PM [facility] POCT GLUCOSE Routine 01/17/2025 12:16 PM [employer] POCT GLUCOSE Routine 01/17/2025 8:09 AM [facility] MANUAL DIFFERENTIAL Routine 01/17/2025 6 :16 AM [facility] CBC WITH AUTO DIFFERENTIAL Routine 01/17/2025 6:16 AM [employer] COMPLETE BLOOD COUNT (CBC) WITH DIFF Routine 01/17/2025 6:16 AM [facility] BASIC METABOLIC PANEL W/ CALCIUM TOTAL Routine 01/17/2025 6:16 AM [facility] RHYTHM STRIP 01/17/2025 12:00 AM [facility] RHYTHM STRIP 01/17/2025 12:00 AM [facility] RHYTHM STRIP 01/17/2025 12:00 AM [facility] RHYTHM STRIP 01/17/2025 12:00 AM [facility] POCT GLUCOSE Routine 01/16/2025 7:37 PM [employer] [employer] POCT GLUCOSE Routine 01/16/2025 4:09 PM [employer] POCT GLUCOSE Routine 01/16/2025 11:26 AM [facility] VANCOMYCIN Timed 01/16/2025 11:13 AM [facility] XR CHEST SINGLE VIEW PORTABLE Routine 01/16/2025 10:24 AM [facility] POCT GLUCOSE Routine 01/16/2025 8:31 AM [facility] MANUAL DIFFERENTIAL Routine 01/16/2025 4 :16 AM [facility] CBC WITH AUTO DIFFERENTIAL Routine 01/16/2025 4:16 AM [facility] COMPLETE BLOOD COUNT (CBC) WITH DIFF Routine 01/16/2025 4:16 AM [facility] BASIC METABOLIC PANEL W/ CALCIUM TOTAL Routine 01/16/2025 4:16 AM [employer] RHYTHM STRIP 01/16/2025 12:00 AM [employer] RHYTHM STRIP 01/16/2025 12:00 AM [facility] RHYTHM STRIP 01/16/2025 12:00 AM [facility] RHYTHM STRIP 01/16/2025 12:00 AM [facility] POCT GLUCOSE Routine 01/15/2025 9:56 PM [employer] POCT GLUCOSE Routine 01/15/2025 4:39 PM [facility] COMMUNICATION TO RESPIRATORY THERAPY Routine 01/15/2025 10:04 AM [employer] POCT GLUCOSE Routine 01/15/2025 10:04 AM [facility] MANUAL DIFFERENTIAL Routine 01/15/2025 5 :31 AM [employer] CBC WITH AUTO DIFFERENTIAL Routine 01/15/2025 5:31 AM [employer] COMPLETE BLOOD COUNT (CBC) WITH DIFF Routine 01/15/2025 5:31 AM [employer] BASIC METABOLIC PANEL W/ CALCIUM TOTAL Routine 01/15/2025 5:31 AM [employer] VANCOMYCIN Timed 01/15/2025 5:31 AM [employer] [employer] RHYTHM STRIP 01/15/2025 12:00 AM [employer] RHYTHM STRIP 01/15/2025 12:00 AM [employer] RHYTHM STRIP 01/15/2025 12:00 AM [facility] RHYTHM STRIP 01/15/2025 12:00 AM [facility] POCT GLUCOSE Routine 01/14/2025 9:10 PM [employer] [employer] POCT GLUCOSE Routine 01/14/2025 3:45 PM [employer] POCT GLUCOSE Routine 01/14/2025 12:08 PM [employer] [facility] POCT GLUCOSE Routine 01/14/2025 8:00 AM [employer] POCT GLUCOSE Routine 01/14/2025 4:53 AM [employer] MANUAL DIFFERENTIAL Routine 01/14/2025 4 :52 AM [employer] CBC WITH AUTO DIFFERENTIAL Routine 01/14/2025 4:52 AM [facility] COMPLETE BLOOD COUNT (CBC) WITH DIFF Routine 01/14/2025 4:52 AM [facility] BASIC METABOLIC PANEL W/ CALCIUM TOTAL Routine 01/14/2025 4:52 AM [employer] MRSA NASAL PCR Routine 01/14/2025 12:49 AM [facility] MRSA NASAL BY PCR Routine 01/14/2025 12:49 AM [employer] RHYTHM STRIP 01/14/2025 12:00 AM [employer] RHYTHM STRIP 01/14/2025 12:00 AM [employer] RHYTHM STRIP 01/14/2025 12:00 AM [employer] POCT GLUCOSE Routine 01/13/2025 9:16 PM [employer] BLOOD GASES, ARTERIAL W/ O2 SATURATION STAT 01/13/2025 8:10 PM [employer] [employer] XR CHEST SINGLE VIEW PORTABLE Stat with Interpretation 01/13/2025 7:29 PM [employer] POCT GLUCOSE Routine 01/13/2025 4:42 PM [employer] POCT GLUCOSE Routine 01/13/2025 11:51 AM [facility] INCENTIVE SPIROMETRY RT-INITIAL Routine 01/13/2025 9:49 AM [facility] POCT GLUCOSE Routine 01/13/2025 7:01 AM [employer] CBC WITH AUTO DIFFERENTIAL Routine 01/13/2025 5:28 AM [employer] [employer] COMPLETE BLOOD COUNT (CBC) WITH DIFF Routine 01/13/2025 5:28 AM [employer] [employer] BASIC METABOLIC PANEL W/ CALCIUM TOTAL Routine 01/13/2025 5:28 AM [employer]CH RHYTHM STRIP 01/13/2025 12:00 AM [employer]CH RHYTHM STRIP 01/13/2025 12:00 AM [employer] RHYTHM STRIP 01/13/2025 12:00 AM [employer] POCT GLUCOSE Routine 01/12/2025 8:05 PM TO[employer] [facility]CH POCT GLUCOSE Routine 01/12/2025 4:51 PM TO[employer] [facility] POCT GLUCOSE Routine 01/12/2025 11:07 AM [employer] NM LUNG PERFUSION SCAN Stat with Interpretation 01/12/2025 8:56 AM [employer] [facility] POCT GLUCOSE Routine 01/12/2025 7:31 AM [employer] CBC WITH AUTO DIFFERENTIAL STAT 01/12/2025 5:07 AM TO[employer] [facility]CH COMPLETE BLOOD COUNT (CBC) WITH DIFF STAT 01/12/2025 5:07 AM [employer]CH BASIC METABOLIC PANEL W/ CALCIUM TOTAL STAT 01/12/2025 5:07 AM [employer] XR CHEST SINGLE VIEW PORTABLE STAT 01/12/2025 12:28 AM TO[employer]CH RHYTHM STRIP 01/12/2025 12:00 AM TO[employer] [facility]CH RHYTHM STRIP 01/12/2025 12:00 AM [employer] [employer]CH RHYTHM STRIP 01/12/2025 12:00 AM [employer] AEROSOL NEBULIZER-INITIAL STAT 01/11/2025 10:50 PM TOOL [employer]CH CBC WITH AUTO DIFFERENTIAL STAT 01/11/2025 10:29 PM [employer] HEMOGLOBIN A1C W/ ESTIMATED GLUCOSE STAT 01/11/2025 10:29 PM TO[facility]CH D-DIMER STAT 01/11/2025 10:29 PM TO[facility] [employer]CH CMP (COMPREHENSIVE METABOLIC PANEL) STAT 01/11/2025 10:29 PM [employer]CH COMPLETE BLOOD COUNT (CBC) WITH DIFF STAT 01/11/2025 10:29 PM [employer]CH EKG 12 LEAD STAT 01/11/2025 10:25 PM [employer]CH RESPIRATORY PATHOGEN ARRAY Routine 01/11/2025 10:24 PM [employer]CH RSV,SARS-COV-2,INFL UENZA A&B BY PCR STAT 01/11/2025 10:24 PM TO[facility] POCT GLUCOSE STAT 01/11/2025 10:18 PM [employer] [facility]CH EKG SCAN 01/11/2025 12:00 AM [employer]CH STOOL, OCCULT BLOOD, DIAGNOSTIC, VIA GUAIAC Routine 03/11/2020 12:35 AM CDT BRIGITTE DIAG BILATERAL DIGITAL W CAD W LANDEN Routine 04/30/2018 11:03 AM CDT Unspecified lump in the left breast, upper inner quadrant from Last 3 Months or Most Recently Relevant to Health Maintenance Results * CULTURE, URINE (02/04/2025 10:21 AM CDT) CULTURE RESULTS ESCHERICHIA COLI 02/06/2025 10:42 PM CDT [facility] Culture URINE SPECIMEN OBTAINED BY CLEAN CATCH PROCEDURE / Unknown Non-Phlebotomy Collection / Unknown 02/04/2025 10:21 AM CDT 02/04/2025 10:21 AM CDT Narrative Organism Antibiotic Method Susceptibility Escherichia coli Ampicillin [facility] V[facility]K II >=32 mcg/ml: Resistant Escherichia coli Ampicillin/sulbactam [facility] II >=32 mcg/ml: Resistant Escherichia coli Cefazolin [facility] II <=4 mcg/ml: Susceptible Escherichia coli Cefepime [facility] II <=1 mcg/ml: Susceptible Escherichia coli Ceftriaxone [facility] II <=1 mcg/ml: Susceptible Escherichia coli Gentamicin [facility] II <=1 mcg/ml: Susceptible Escherichia coli Levofloxacin [facility] II <=0.12 mcg/ml: Susceptible Escherichia coli Meropenem [facility] II <=0.25 mcg/ml: Susceptible Escherichia coli Nitrofurantoin [facility] II <=16 mcg/ml: Susceptible Escherichia coli Piperacillin/Tazobactam [facility] II >=128 mcg/ml: Resistant Escherichia coli Tobramycin [facility] II <=1 mcg/ml: Susceptible Escherichia coli Trimeth/Sulfamethoxazole [facility] I I <=20 mcg/ml: Susceptible us Brittany Hollingsworth [employer] PRODUCT CONSULTANT, INSURANCE APPLICATION INVESTIGATOR MICROBIOLOGY - GEN ERAL ORDERABLES Final Result [facility] [address] [place] [address], * (ABNORMAL) POCT UA AUTOMATED W/O MICRO (02/04/2025 10:16 AM CDT) POC UA SPECIFIC GRAVITY 1.010 URINE PH 5.0 5.0 - 9.0 POC URINE LEUKOCYTES 500 /uL(A) Negative Alberto/uL POC URINE NITRITE Positive(A) Negative POC URINE PROTEIN 30 mg/dL(A) Negative mg/dL POC URINE GLUCOSE >1000 mg/dL(A) Negative, Norm mg/dL POC URINE KETONE Negative Negative mg/dL POC URINE UROBILINOGEN Norm Norm, 0.2 E.U./dL (mg/dL), 1 E.U./dL (mg/dL) POC URINE BILIRUBIN Negative Negative mg/dL POC URINE BLOOD INSTRUMENT 250 Johnson/uL(A) Negative Johnson/uL POC URINE COLOR Light Yellow POC URINE CLARITY Cloudy Urine 02/04/2025 10:1 6 AM CDT us Brittany Hollingsworth [employer] PRODUCT CONSULTANT, INSURANCE APPLICATION INVESTIGATOR POINT OF CARE TEST ING (MANUAL) Final Result * (ABNORMAL) POCT Glucose (01/19/2025 11:16 AM [employer]) Only the most recent of31 resultswithin the time period is included. GLUCOSE,BEDSID E POCT 305(H) 70 - 99 mg/dL 01/19/2025 11:22 AM [facility] Comment:Patient RN Performed Blood 01/19/2025 11:1 6 AM [facility] 01/19/2025 11:22 AM [facility] us None Provider POINT OF CARE TESTING Final Resu lt [facility] [address] [place] [address] * (ABNORMAL) Manual Differential (01/19/2025 6:04 AM [employer] [facility]) Only the most recent of6 resultswithin the time period is included. BANDS % 4.0 % 01/19/2025 7:18 AM [facility] NEUTROPHILS % 62.0 47.0 - 73.0 % 01/19/2025 7:18 AM [facility] LYMPHOCYTES % 24.0 18.0 - 42.0 % 01/19/2025 7:18 AM [facility] MONOCYTES % 6.0 4.0 - 12.0 % 01/19/2025 7:18 AM [facility] EOSINOPHILS % 1.0 0.0 - 5.0 % 01/19/2025 7:18 AM [facility] MYELOCYTES % 3.0(H) <=0.0 % 01/19/2025 7:18 AM [facility] NEUTROPHILS ABSOLUTE 7.80(H) 1.60 - 7.70 10(3)/[facility] 01/19/2025 7:18 AM [facility] LYMPHOCYTES ABSOLUTE 2.84 1.30 - 3.20 10(3)/[facility] 01/19/2025 7:18 AM [facility] MONOCYTES ABSOLUTE 0.71 0.20 - 1.00 10(3)/[facility] 01/19/2025 7:18 AM [facility] EOSINOPHILS ABSOLUTE 0.12 0.00 - 0.40 10(3)/[facility] 01/19/2025 7:18 AM [facility] NRBC PER 100 WBC 2 01/19/20 7:18 AM [facility] RBC MORPHOLOGY CONSISTENT WITH INDICES Yes 01/19/2025 7:18 AM [facility] POLYCHROMASIA 1+ 01/19/2025 7:18 AM [facility] TOXIC GRANULATION 1+ 025 7:18 AM [facility] GIANT PLATELETS 1+ 7:18 AM [facility] LARGE PLATELETS 1+ 5 7:18 AM [facility] REACTIVE LYMPHOCYTES 2 01/19/2025 7:18 AM [facility] Blood Venipuncture / Unknown 01/19/2025 6:04 AM [facility] 01/19/2025 6:34 AM [facility] Narrative [facility] - 01/19/2025 7:18 AM [facility] Anisocytosis us Saba Lin [employer] PRODUCT CONSULTANT, INSURANCE APPLICATION INVESTIGATOR HEMATOLOGY ORDERABLES F inal Result [facility] [address] [place] [address] * CBC with Auto Differential (01/19/2025 6:04 AM [facility]) Only the most recent of9 resultswithin the time period is included. WBC 11.82 4.00 - 12.00 10(3)/mcL 01/19/2025 7:18 AM [facility] RBC 4.17 3.80 - 5.30 10(6)/mcL 01/19/2025 7:18 AM [facility] HEMOGLOBIN (HGB) 12.5 12.0 - 15.8 g/dL 01/19/2025 7:18 AM [facility] HEMATOCRIT (HCT) 38.9 36.0 - 47.0 % 01/19/2025 7:18 AM [facility] MCV 93.3 82.0 - 96.0 fL 01/19/2025 7:18 AM [facility] MCH 30.0 26.0 - 34.0 pg 01/19/2025 7:18 AM [facility] MCHC 32.1 31.0 - 36.0 g/dL 01/19/2025 7:18 AM [facility] PLATELET COUNT 173 140 - 440 10(3)/mcL 01/19/2025 7:18 AM [facility] RDW 13.2 11.8 - 15.5 % 01/19/2025 7:18 AM [facility] MPV 11.2 9.7 - 12.4 fL 01/19/2025 7:18 AM [facility] NRBC PER 100 WBC 0 01/19/2025 7:18 AM [facility] RESULTS ARE CONSISTENT WITH PERIPHERAL SMEAR REVIEW Yes 01/19/2025 7:18 AM [facility] Blood Venipuncture / Unknown 01/19/2025 6:04 AM [facility] 01/19/2025 6:34 AM [facility] Narrative [facility] - 01/19/2025 7:18 AM [facility] Platelet count maybe slightly decreased due to the presence of platelet clumping. us Saba Lin APRN, KEIRY HEMATOLOGY ORDERABLES F inal Result [facility] [address] [place] [address] * (ABNORMAL) BMP with Ca, Total (01/19/2025 6:04 AM [facility]) Only the most recent of8 resultswithin the time period is included. SODIUM 142 136 - 145 mmol/L 01/19/2025 7:00 AM [facility] POTASSIUM 3.5 3.5 - 5.1 mmol/L 01/19/2025 7:00 AM [facility] CHLORIDE 109(H) 98 - 107 mmol/L 01/19/2025 7:00 AM [facility] CO2, VENOUS 27 22 - 30 mmol/L 01/19/2025 7:00 AM [facility] ANION GAP 9.5 <18.0 mmol/L 01/19/2025 7:00 AM [facility] GLUCOSE 160(H) 70 - 99 mg/dL 01/19/2025 7:00 AM [facility] BUN 17 10 - 20 mg/dL 01/19/2025 7:00 AM [facility] CREATININE, BLOOD 0.80 0.60 - 1.00 mg/dL 01/19/2025 7:00 AM [facility] BUN/CREATININE RATIO 21(H) 12 - 20 ratio 01/19/2025 7:00 AM [facility] CALCIUM 8.3(L) 8.7 - 10.5 mg/dL 01/19/2025 7:00 AM [facility] GFR, ESTIMATED >60 >=60 01/19/2025 7:00 AM [facility] Comment: Creatinine Clearance is the preferred criteria for selecting drug dose adjustments in renally impaired patients. The GFR is provided as additional pertinent clinical information. GFR is reported in mL/min/1.73 sq m. Calculation based on the Chronic Kidney Disease Epidemiology Collaboration (CKD- EPI) equation refit without adjustment for race. GFR, EST. >60 >=60 025 7:00 AM [facility] GFR, EST. NONAFRICAN >60 >=60 01/19/2025 7:00 AM [facility] Blood Venipuncture / Unknown 01/19/2025 6:04 AM [facility] 01/19/2025 6:34 AM [facility] us Saba Lin [employer] PRODUCT CONSULTANT, INSURANCE APPLICATION INVESTIGATOR CHEMISTRY ORDERABLES Fi nal Result Performing Organization Address [facility] Co de Phone Number [facility] [address] [place] [address] * RHYTHM STRIP (01/19/2025 12:00 AM [facility]) Only the most recent of27 resultswithin the time period is included. 01/19/2025 us Provider Scan IMG ECG ORDERABLES Final Result Performing Organization Address [facility] Co de Phone Number RESULTING AGENCY * (ABNORMAL) Vancomycin Level (01/18/2025 6:00 AM [facility]) Only the most recent of3 resultswithin the time period is included. VANCOMYCIN RESULT 17(L) 20 - 40 mcg/mL 01/18/2025 7:40 AM [facility] Blood Venipuncture / Unknown 01/18/2025 6:00 AM [facility] 01/18/2025 6:20 AM [facility] Narrative [facility] - 01/18/2025 7:40 AM [facility] CALL PHARMACY FOR THERAPEUTIC RANGE. us Gabriel Garay MD CHEMISTRY ORDERABLES Final Res ult Performing Organization Address [facility] Co de Phone Number [facility] [address] [place] [address] * XR CHEST SINGLE VIEW PORTABLE (01/16/2025 10:24 AM [facility]) Only the most recent of3 resultswithin the time period is included. Anatomical Region Laterality Modality Chest N/A Computed Radiogr aphy 01/16/2025 12:1 9 PM [facility] Impressions 01/16/2025 12:21 PM [facility] IMPRESSION: Similar-appearing airspace and interstitial opacities throughout the left lung. Bilateral peribronchial thickening which can be seen with bronchitis. Narrative 01/16/2025 12:21 PM [employer] EXAM DESCRIPTION: XR CHEST SINGLE VIEW PORTABLE [...] Moe Avendano M.D. NS: NS Report ID: [id number] Reading Location: [id number] Procedure Note Moe Avendano MD - 01/16/2025 [...] Moe Avendano M.D. NS: NS Report ID: [id number] Reading Location: [id number] IMPRESSION: Similar-appearing airspace and interstitial opacities throughout the left lung. Bilateral peribronchial thickening which can be seen with bronchitis. Gabriel Garay MD IMG DIAGNOSTIC ORDERABLES Yue l Result * (ABNORMAL) MRSA NASAL PCR (01/14/2025 12:49 AM TOOL MA[employer]) Pathologist [facility] MRSA PCR RESULT Positive(A ) Negative, Invalid 01/14/2025 2:03 AM [employer] Other NASOPHARYNGEAL SWAB / Unknown Non-Phlebotomy Collection / Unknown 01/14/2025 12:49 AM [employer] [facility] 01/14/2025 12:55 AM [employer] Saba Lin [employer], INSURANCE APPLICATION INVESTIGATOR MICROBIOLOGY - GENERAL ORDERABLES Final Result [facility] [place] [address] * (ABNORMAL) Blood Gases, Arterial w/ O2 Saturation (01/13/2025 8:10 PM TO[employer]) O2 STATUS HHFNC: 50 LPM,80% FiO2 01/13/2025 8:14 PM [employer] [facility] PH ARTERIAL 7.31(L) 7.35 - 7.45 01/13/2025 8:14 PM [employer] PC02 (ARTERIAL) 41 35 - 45 mmHg 01/13/2025 8:14 PM [employer] [facility] PO2 (ARTERIAL) 79 75 - 100 mmHg 01/13/2025 8:14 PM [employer] [facility] O2 SAT ART, MEASURED 95 94 - 100 % 01/13/2025 8:14 PM [employer] BASE ARTERIAL -5.0(L) -2.0 - 2.0 mmol/L 01/13/2025 8:14 PM [employer] BICARBONATE 20.4(L) 22.0 - 26.0 mmol/L 01/13/2025 8:14 PM [employer] RANDY'S TEST RESULTS Positive - Right Radial 01/13/2025 8:14 PM [employer] [facility] CARBOXYHEMOGLOBIN 1.4 0.0 - 5.0 % 01/13/2025 8:14 PM [employer] [facility] METHEMOGLOBIN 0.4 0.0 - 1.5 % 01/13/2025 8:14 PM [employer] ART Blood Gas Arterial Punctur e / Unknown 01/13/2025 8:10 PM [employer] 01/13/2025 8:10 PM [employer] Keisha Samano MD CHEMISTRY ORDERABLES Final Result [facility] [place] [address] * NM LUNG PERFUSION SCAN (01/12/2025 8:56 AM TOOL [employer]ER [employer]) Anatomical Region Laterality Modality Chest N/A Nuclear Medicine 01/12/2025 9:09 AM [employer] Impressions 01/12/2025 9:11 AM [employer] IMPRESSION: 1. Low probability for pulmonary embolism. Narrative 01/12/2025 9:11 AM [employer] EXAM DESCRIPTION: NM LUNG PERFUSION SCAN RADIOPHARMACEUTICAL: [...] Gunnar Castaneda M.D. LB: LB Report ID: [id number] Reading Location: [id number] Procedure Note Gunnar Castaneda MD - 01/12/2025 [...] Gunnar Castaneda M.D. LB: LB Report ID: [id number] Reading Location: [id number] IMPRESSION: 1. Low probability for pulmonary embolism. Shady Irby MD [facility] ORDERABLES Fi nal Result * (ABNORMAL) Hemoglobin A1C (if indicated) (01/11/2025 10:29 PM TOOL MAKER BENCH) HGB-A1C 11.8(H) 4.0 - 6.0 % 01/12/2025 4:45 AM TOOL MAKER BENCH [facility] Est Average Glucose 292.0 mg/dL 01/12/2025 4:45 AM TOOL MAKER BENCH [facility] Blood Venipuncture / Unknown 01/11/2025 10:29 PM TOOL MAKER BENCH 01/11/2025 10:45 PM TOOL MAKER BENCH Narrative [facility] - 01/12/2025 4:45 AM TOOL MAKER BENCH HEMOGLOBIN A1C: DIABETIC PATIENTS: WELL-CONTROLLED: 6.2 - 7.0 INTERMEDIATE WELL-CONTROLLED: 7.0 - 9.0 POORLY-CONTROLLED: >9.0 Specimens containing greater than 5% of Hemoglobin F may result in lower than expected % HbA1C results. Katy Otero APRN, INSURANCE APPLICATION INVESTIGATOR CHEMISTRY ORDERABLES Yue l Result Performing Organization Address [facility] Co de Phone Number [facility] [address] [place] [address] * (ABNORMAL) D-Dimer (01/11/2025 10:29 PM TOOL MAKER BENCH) D DIMER 1.52(H) <0.50 mcg/mL FEU 01/11/2025 11:02 PM TOOL MAKER BENCH [facility] Blood Venipuncture / Unknown 01/11/2025 10:29 PM TOOL MAKER BENCH 01/11/2025 10:45 PM TOOL MAKER BENCH Narrative [facility] - 01/11/2025 11:02 PM TOOL MAKER BENCH The FDA has approved this method to exclude the diagnosis of DVT and/or PE at the cutoff value of <0.50 mcg/mL FEU. Shady Irby MD HEMATOLOGY ORDERABLE S Final Result Performing Organization Address [facility] Co de Phone Number [facility] [address] [place] [address] * (ABNORMAL) CMP (01/11/2025 10:29 PM TOOL MAKER BENCH) SODIUM 138 136 - 145 mmol/L 01/11/2025 11:07 PM TOOL MAKER BENCH [facility] POTASSIUM 4.7 3.5 - 5.1 mmol/L 01/11/2025 11:07 PM TOOL MAKER BENCH [facility] Comment: Specimen is hemolyzed. In vitro hemolysis could affect results. Clinical correlation advised. CHLORIDE 106 98 - 107 mmol/L 01/11/2025 11:07 PM [facility] CO2, VENOUS 20(L) 22 - 30 mmol/L 01/11/2025 11:07 PM [facility] ANION GAP 16.7 <18.0 mmol/L 01/11/2025 11:07 PM [facility] GLUCOSE 318(H) 70 - 99 mg/dL 01/11/2025 11:07 PM [facility] BUN 21(H) 10 - 20 mg/dL 01/11/2025 11:07 PM [facility] CREATININE, BLOOD 1.83(H) 0.60 - 1.00 mg/dL 01/11/2025 11:07 PM [facility] BUN/CREATININE RATIO 11(L) 12 - 20 ratio 01/11/2025 11:07 PM [facility] TOTAL PROTEIN 8.2(H) 6.0 - 8.0 g/dL 01/11/2025 11:07 PM [facility] Comment: Specimen is hemolyzed. In vitro hemolysis could affect results. Clinical correlation advised. ALBUMIN 3.5 3.5 - 5.0 g/dL 01/11/2025 11:07 PM [facility] A/G RATIO 0.7(L) 1.0 - 2.2 01/11/2025 11:07 PM [facility] CALCIUM 8.9 8.7 - 10.5 mg/dL 01/11/2025 11:07 PM [facility] T BILI 0.6 0.2 - 1.2 mg/dL 01/11/2025 11:07 PM [facility] SGOT (AST) 37 <43 U/L 01/11/2025 11:07 PM [facility] Comment: Specimen is hemolyzed. In vitro hemolysis could affect results. Clinical correlation advised. SGPT (ALT) 17 <56 U/L 01/11/2025 11:07 PM [facility] ALKALINE PHOSPHATASE 66 40 - 150 U/L 01/11/2025 11:07 PM TOOL MAKER BENCH [facility] GFR, ESTIMATED 31(L) >=60 01/11/2025 11:07 PM TOOL MAKER BENCH [facility] Comment: Creatinine Clearance is the preferred criteria for selecting drug dose adjustments in renally impaired patients. The GFR is provided as additional pertinent clinical information. GFR is reported in mL/min/1.73 sq m. Calculation based on the Chronic Kidney Disease Epidemiology Collaboration (CKD- EPI) equation refit without adjustment for race. GFR, EST. 34(L) >=60 025 11:07 PM TOOL MAKER BENCH [facility] GFR, EST. NONAFRICAN 28(L) >=60 01/11/2025 11:07 PM TOOL MAKER BENCH [facility] Blood Venipuncture / Unknown 01/11/2025 10:29 PM TOOL MAKER BENCH 01/11/2025 10:45 PM TOOL MAKER BENCH Shady Irby MD CHEMISTRY ORDERABLES Final Result [facility] [address] [place] [address] * EKG 12 LEAD (01/11/2025 10:25 PM TOOL MAKER BENCH) Ventricular Rate 90 BPM EXTERNAL EKG Atrial Rate 90 BPM EXTERNAL EKG P-R Interval 156 ms EXTERNAL EKG QRS Duration 68 ms EXTERNAL EKG Q-T Duration 350 ms EXTERNAL EKG QTC CALCULATION 428 ms EXTERNAL EKG P Scobey 19 degrees EXTERNAL EKG R Scobey 36 degrees EXTERNAL EKG T Scobey 41 degrees EXTERNAL EKG 01/11/2025 10:2 5 PM TOOL MAKER BENCH Impressions EXTERNAL EKG - 01/12/2025 11:09 PM TOOL MAKER BENCH Normal sinus rhythm Low voltage QRS Borderline ECG ~ Confirmed by Ventura Lew ([id number]) on 01/12/2025 11:09:38 PM Narrative Procedure Note Ventura Lew MD - 01/12/2025 IMPRESSION: Normal sinus rhythm Low voltage QRS Borderline ECG ~ Confirmed by Ventura Lew ([id number]) on 01/12/2025 11:09:38 PM us Shady Irby MD IMG ECG ORDERABLES F inal Result EXTERNAL EKG * (ABNORMAL) Respiratory Pathogen Array (01/11/2025 10:24 PM TOOL MAKER BENCH) ADENOVIRUS NON DETECTED NON DETECTED [facility] 01/16/2025 3:09 PM TOOL MAKER BENCH [facility] CORONAVIRUS 229E NON DETECTED NON DETECTED [facility] 01/16/2025 3:09 PM TOOL MAKER BENCH [facility] CORONAVIRUS HKU1 NON DETECTED NON DETECTED [facility] 01/16/2025 3:09 PM TOOL MAKER BENCH [facility] CORONAVIRUS NL 63 NON DETECTED NON DETECTED [facility] 01/16/2025 3:09 PM TOOL MAKER BENCH [facility] CORONAVIRUS OC43 NON DETECTED NON DETECTED [facility] 01/16/2025 3:09 PM TOOL MAKER BENCH [facility] METAPNEUMOVIRUS NON DETECTED NON DETECTED [facility] 01/16/2025 3:09 PM TOOL MAKER BENCH [facility] RHINO/ENTEROVIRUS NON DETECTED NON DETECTED [facility] 01/16/2025 3:09 PM TOOL MAKER BENCH [facility] INFLUENZA A DETECTED(A) NON DETECTED, INVALID [facility] 01/16/2025 3:09 PM TOOL MAKER BENCH [facility] Comment:Performance of detec ting Influenza A may vary if other Influenza strains are circulating or a novel Influenza A virus emerges. INFLUENZA A, H1 NON DETECTED NON DETECTED, INVALID [facility] 01/16/2025 3:09 PM TOOL MAKER BENCH [facility] INFLUENZA A, H3 DETECTED(A) NON DETECTED, INVALID [facility] 01/16/2025 3:09 PM TOOL MAKER BENCH [facility] INFLUENZA A, 2009 H1 NON DETECTED NON DETECTED, INVALID [facility] 01/16/2025 3:09 PM TOOL MAKER BENCH [facility] INFLUENZA B NON DETECTED NON DETECTED, INVALID [facility] 01/16/2025 3:09 PM TOOL MAKER BENCH [facility] PARAINFLU VIRUS 1 NON DETECTED NON DETECTED [facility] 01/16/2025 3:09 PM TOOL MAKER BENCH [facility] PARAINFLU VIRUS 2 NON DETECTED NON DETECTED [facility] 01/16/2025 3:09 PM TOOL MAKER BENCH [facility] PARAINFLU VIRUS 3 NON DETECTED NON DETECTED [facility] 01/16/2025 3:09 PM TOOL MAKER BENCH [facility] PARAINFLU VIRUS 4 NON DETECTED NON DETECTED [facility] 01/16/2025 3:09 PM TOOL MAKER BENCH [facility] RESP SYNCITIAL VIRUS NON DETECTED NON DETECTED [facility] 01/16/2025 3:09 PM TOOL MAKER BENCH [facility] BORDETELLA PERTUSSIS NON DETECTED NON DETECTED [facility] 01/16/2025 3:09 PM TOOL MAKER BENCH [facility] Comment:It is recommended th at specimens found to be negative for Bordetella after testing with Film Array RP be confirmed by an alternate method if clinically indicated. CHLAMYDIA PNEUMONIAE NON DETECTED NON DETECTED [facility] 01/16/2025 3:09 PM TOOL MAKER BENCH [facility] MYCOPLASMA PNEUMONIAE NON DETECTED NON DETECTED [facility] 01/16/2025 3:09 PM TOOL MAKER BENCH [facility] BORDETELLA PARAPERTUSSIS ([id number]) NON DETECTED NON DETECTED [facility] 01/16/2025 3:09 PM TOOL MAKER BENCH [facility] SARSCOV2 NOT DETECTED (Reference Range for this test is Not Detected) [facility] 01/16/2025 3:09 PM TOOL MAKER BENCH [facility] Comment:This test was perfor med by a Reverse Non Cdl Driver PCR Method. Other NASOPHARYNGEAL STRUCTURE / Unknown Non-Phlebotomy Collection / Unknown 01/11/2025 10:24 PM TOOL MAKER BENCH 01/16/2025 9:54 AM TOOL MAKER BENCH us Gabriel Garay MD MICROBIOLOGY - GENERAL ORDERAB LES Final Result [facility] [address] [place] [address], * (ABNORMAL) CHERRIE-COV-2 Flu RSV - (Quad PCR) (01/11/2025 10:24 PM TOOL MAKER BENCH) FLU A Positive(A) Negative, Error 01/11/2025 11:18 PM TOOL MAKER BENCH [facility] FLU B Negative Negative 01/11/2025 11:18 PM TOOL MAKER BENCH [facility] RESP SYNC VIRUS Negative Negative 11:18 PM TOOL MAKER BENCH [facility] SARSCOV2 NOT DETECTED (Reference Range for this test is Not Detected) 01/11/2025 11:18 PM TOOL MAKER BENCH [facility] Comment:This test was perfor med by a Reverse Non Cdl Driver PCR Method. Swab NASOPHARYNGEAL SWAB / Unknown Non-Phlebotomy Collection / Unknown 01/11/2025 10:24 PM TOOL MAKER BENCH 01/11/2025 10:38 PM TOOL MAKER BENCH Shady Irby MD MICROBIOLOGY - GENER AL ORDERABLES Final Result Performing Organization Address City/[facility]/ZIP Co de Phone Number [facility] [address] [place] [address] * EKG SCAN (01/11/2025 12:00 AM TOOL MAKER BENCH) 01/11/2025 us Provider Scan IMG ECG ORDERABLES Final Result RESULTING AGENCY * Stool, Occult Blood, Diagnostic (03/11/2020 12:35 AM CDT) OCCULT BLOOD DIAG, GI BLEED Negative Negative 03/11/2020 1:11 AM CDT [facility] Stool specimen (specimen) STOOL SPECIMEN / Unknown Non-Phlebotomy Collection / Unknown 03/11/2020 12:35 AM CDT 03/11/2020 12:41 AM CDT us Alyssia Leyva APRN, CNP BODY FLUIDS & STOOL S ORDERABLES Final Result [facility] [address] [place] [address] * BRIGITTE DIAG BILATERAL DIGITAL W CAD [...] exams dated: 11/03/2006, 11/04/2013, 10/27/2006, and 10/27/2006 [facility]. BREAST TISSUE:There are scattered fibroglandular densities in [...] signed by: Sintia Duarte M.D. ll/:04/30/2018 11:30:16 Program/Music Director: Marcia Resendiz (R), [facility] letter sent: Normal Exam Reading location: [facility] OVERALL STUDY BIRADS: 2 Benign Procedure Note Sintia Duarte MD - 05/01/2018 - BRIGITTE DIAG BILATERAL DIGITAL W CAD W LANDEN - BRIGITTE US BREAST LIMITED LT BILATERAL DIGITAL DIAGNOSTIC MAMMOGRAM 3D/2D WITH CAD AND TARGETED LEFT ULTRASOUND WITH MEDIOLATERAL OBLIQUE CRANIOCAUDAL: 04/30/2018 The study was acquired using digital technology and interpreted from soft copy. Current study was also evaluated with [employer] version 7.2. CLINICAL: Diagnostic study. Patient reports [...] exams dated: 11/03/2006, 11/04/2013, 10/27/2006, and 10/27/2006 [facility]. BREAST TISSUE:There are scattered fibroglandular densities in [...] signed by: Sintia Duarte M.D. ll/:04/30/2018 11:30:16 Program/Music Director: Marcia Resendiz (R), [facility] letter sent: Normal Exam Reading location: [facility] OVERALL STUDY BIRADS: 2 Benign us Delia M Yanez SEPH[employer]A PRODUCT CONSULTANT, INSURANCE APPLICATION INVESTIGATOR IMG MAMMO ORDERABLES F inal Result from Last 3 Months or Most Recently Relevant to Health Maintenance Additional Health Concerns Infection Onset Date Last Indicated MRSA 01/14/2025 01/14/2025 Insurance [facility] Advance Directives * Full Code (Latest [...] measures to stabilize the patient. Care Teams Electrical Power Station Technician Relationship Specialty Start Date End Date Armen Johns MD [address] [place] [id number] PCP - General Family Medicine 05/26/22 Analy Wilkerson LYNDA, INSURANCE APPLICATION INVESTIGATOR Nurse Practitioner Advanced Practice Nurse 07/25/16
--- OUTSIDE RECORDS SUMMARY | 2025-02-27 13:35 | XMS_ITS | Encounter Summary ---
Author Organization [facility] Address [address] [place] [address] Phone Care Team Providers Care Audio/Video Engineer Name Role Phone Analy Wilkerson LYNDA, CIGARETTE MAKING EXAMINER Unavailable Armen Johns MD Primary Care Provider [phone] Encounter Details Date Type Department Care Team (Late st Contact Info) Description 02/06/2025 Results Follow-Up [facility] [place] [address] [place] [address] Shad Ospina, AKHIL [address] [place], [place] [id number] Social History Tobacco Use Types Packs/Day Years Used Date Smoking Tobacco: Never Smokeless Tobacco: Never Alcohol Use Standard Drinks/Week Comments Not Currently 0 (1 standard drink = 0.6 oz pur e alcohol) Rarely [facility] Utilities Answer Date Recorded In the past 12 months has e electric, gas, oil, or water company [...] any time in the past 12 m [facility], were you homeless or living in a long term (including now)? No 01/12/2025 Comments No Sex and Gender Information Value Date Recorded Sex Assigned at Not on file Legal Sex Female 9:30 PM CDT Gender Identity Not on file Sexual Orientation Not on file Occupation Industry Job Start Date Job End Date unemployed Not on file Not on file Not on file documented as of this encounter Plan of Treatment Not on file documented as of this encounter Visit Diagnoses Not on filedocumented in this encounter Additional Health Concerns Infection Onset Date Last Indicated Resolved Time MRSA 01/14/2025 01/14/2025 documented as of this encounter Care Teams Audio/Video Engineer Relationship Specialty Start Date End Date Armen Johns MD [address] [place] [id number] PCP - General Family Medicine 05/26/22 Analy Wilkerson APRN, CIGARETTE MAKING EXAMINER Nurse Practitioner Advanced Practice Nurse 07/25/16 documented as of this encounter
--- OUTSIDE RECORDS SUMMARY | 2025-02-27 13:35 | XMS_ITS | Referral Summary ---
Author Organization [facility] Address [address] [place] [address] Care Team Providers Care Digital Media Director Name Role Phone Nena Garcia NP Unavailable [phone] Armen Johns MD Primary Care Provider [phone] Allergies Active Allergy Reactions Criticality Noted Date [...] 9 Active blood-glucose meter (ONETOUCH ULTRA2 METER) [facility] USE DIRECTED TO TEST BLOOD SUGAR 6 [...] neuropathy, without long-term current use of insulin ([facility]) 03/17/2019 Assessment & Plan (03/17/2019 4:18 PM CDT): 58-year-old woman with history of type 2 diabetes admitted March 12, 2019 after partial traumatic amputation right foot now post [id number] amputation. 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 Not on file Not on file Last Filed Vital Signs Vital Sign Reading Time Taken Comments Blood Pressure 122/74 10/16/2024 6:48 PM GRIDDLE COOK Pulse 70 10/16/2024 6:48 PM GRIDDLE COOK Temperature 36.7 C (98.1 F) 10/16/2024 6:48 PM GRIDDLE COOK Respiratory Rate 17 10/16/2024 6:48 PM GRIDDLE COOK Oxygen Saturation 98% 10/16/2024 6:48 PM GRIDDLE COOK Inhaled Oxygen Concentration - - Weight 136.1 kg (300 lb) 10/16/2024 6:48 PM GRIDDLE COOK per patient Height 182.9 cm (6') 10/16/2024 6:48 PM GRIDDLE COOK Body Mass Index 40.69 10/16/2024 6:48 PM GRIDDLE COOK Plan of Treatment Not on file Procedures Procedure Name Priority Date/Time Associated Diagnosis Comments LIPID PANEL Routine 03/13/2019 1:03 AM CDT HEMOGLOBIN A1C STAT 03/12/2019 2:48 PM CDT DIGITAL MAMMOGRAPHY Routine 11/04/2013 2 :19 PM GRIDDLE COOK from Last 3 Months or Most Recently Relevant to Health Maintenance Results * Lipid panel (03/13/2019 1:03 AM CDT) Cholesterol 182 30 - 199 mg/dL [facility] Comment: Interpretive Data Ages [...] revised on 2018. Triglycerides 78 <=149 mg/dL [facility] Comment: Interpretive Data Ages [...] revised on 2018. HDL 45 >=40 mg/dL [facility] Comment: Interpretive Data Ages [...] on 2018. LDL, calculated 121 <=129 mg/dL [facility] Comment: Interpretive Data Ages [...] revised on 2018. Non-HDL Cholesterol 136 mg/dL [facility] Comment: Interpretive Data Ages < [...] last revised on 2018. Chol/HDL ratio 4 [facility] Blood specimen (specimen) 03/13/2019 1:03 AM CDT 03/13/2019 12:42 PM CDT Narrative [facility] - 03/14/2019 2:21 AM CDT Walker [place] MD LAB BLOOD ORDERABL ES Final Result [facility] [place] [address] * (ABNORMAL) Hemoglobin A1c (03/12/2019 2:48 PM CDT) Hgb A1C 9.3(H) 4.0 - 5.6 % [facility] Estimated Average Glucose 220 mg/dL [facility] Comment: The ADA recommends reporting an estimated Average Glucose (eAG) with all Hemoglobin A1c results using the equation derived from a study of 507 normal and diabetic adults. Minority populations were underrepresented and children were not included. (Diabetes Care 31:2397-8767, 2008). The eAG is not equivalent to a fasting glucose. Blood specimen (specimen) 03/12/2019 2:48 PM CDT 03/12/2019 3:01 PM CDT Narrative [facility] - 03/12/2019 9:09 PM CDT us Jhonny Headley MD LAB BLOOD ORDERABLES Final R esult [facility] [place] [address] * DIGITAL MAMMOGRAPHY (11/04/2013 2:19 PM GRIDDLE COOK) Anatomical Region Laterality Modality Breast Mammography 11/04/2013 2:19 PM GRIDDLE COOK Narrative 11/04/2013 7:55 PM GRIDDLE COOK Screening Mamm Bi Acc#: [id number] DATE OF EXAM: Nov 04 2013 CLINICAL [...] Joan - 03/17/2017 Screening Mamm Bi Acc#: [id number] DATE OF EXAM: Nov 04 2013 CLINICAL [...] DR: KAVON COSBY Attending DR: KAVON COSBY [facility] Provider MD SAINZ MAMMO PROCEDURES Yue l Result from Last 3 Months or Most Recently Relevant to Health Maintenance Insurance [facility] [place] [address] [address] Advance Directives For more information, please contact: [phone] * Full Code (Latest Code Status on File) Date Activated Date Inactivated Comments 03/12/2019 4:27 PM 03/17/2019 10:36 PM Care Teams Digital Media Director Relationship Specialty [place] [id number] [address] PCP - General Family Practice 05/27/22 Nena Garcia MANAGER PRIVACY [id number] [address] 03/12/19
--- OUTSIDE RECORDS SUMMARY | 2025-02-27 13:35 | XMS_ITS | Clinical Summary ---
Author Organization [facility] Address [address] [place] [address] Care Team Providers Care Baseball Coach Name Role Phone Nean Garcia NP Unavailable [phone] Armen Johns MD Primary Care Provider [phone] Allergies Active Allergy Reactions Criticality Noted Date [...] 9 Active blood-glucose meter (ONETOUCH ULTRA2 METER) [facility] [place] DIRECTED TO TEST BLOOD SUGAR 6 [...] neuropathy, without long-term current use of insulin ([facility]) 03/17/2019 Assessment & Plan (03/17/2019 4:18 PM CDT): 58-year-old woman with history of type 2 diabetes admitted March 12, 2019 after partial traumatic amputation right foot now post [id number] amputation. 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 Not on file Not on file Obstetrics History Last Filed Vital Signs Vital Sign Reading Time Taken Comments Blood Pressure 122/74 10/16/2024 6:48 PM [employer] Pulse 70 10/16/2024 6:48 PM [employer] Temperature 36.7 C (98.1 F) 10/16/2024 6:48 PM [employer] Respiratory Rate 17 10/16/2024 6:48 PM [employer]ER Oxygen Saturation 98% 10/16/2024 6:48 PM [employer]ER Inhaled Oxygen Concentration - - Weight 136.1 kg (300 lb) 10/16/2024 6:48 PM [employer]ER per patient Height 182.9 cm (6') 10/16/2024 6:48 PM [employer]ER Body Mass Index 40.69 10/16/2024 6:48 PM [employer]OT [employer] Plan of Treatment Health Maintenance Due Date [...] DIGITAL MAMMOGRAPHY Routine 11/04/2013 2 :19 PM PIVOT [employer] POL[employer]ER from Last 3 Months or Most Recently Relevant to Health Maintenance Results * Lipid panel (03/13/2019 1:03 AM CDT) Cholesterol 182 30 - 199 mg/dL [facility] Comment: Interpretive Data Ages < [...] on 2018. Triglycerides 78 <=149 mg/dL [facility] Comment: Interpretive Data Ages < [...] on 2018. HDL 45 >=40 mg/dL [facility] Comment: Interpretive Data Ages < [...] 2018. LDL, calculated 121 <=129 mg/dL [facility] Comment: Interpretive Data Ages < [...] on 2018. Non-HDL Cholesterol 136 mg/dL [facility] Comment: Interpretive Data Ages < [...] last revised on 2018. Chol/HDL ratio 4 [facility] Blood specimen (specimen) 03/13/2019 1:03 AM CDT 03/13/2019 12:42 PM CDT Narrative [facility] - 03/14/2019 2:21 AM CDT Walker Lake MD LAB BLOOD ORDERABL ES Final Result Performing Organization Address [facility] de Phone Number [facility] [place] [address] * (ABNORMAL) Hemoglobin A1c (03/12/2019 2:48 PM CDT) Hgb A1C 9.3(H) 4.0 - 5.6 % [facility] Estimated Average Glucose 220 mg/dL [facility] Comment: The ADA recommends reporting an estimated Average Glucose (eAG) with all Hemoglobin A1c results using the equation derived from a study of 507 normal and diabetic adults. Minority populations were underrepresented and children were not included. (Diabetes Care 31:4197-3718, 2008). The eAG is not equivalent to a fasting glucose. Blood specimen (specimen) 03/12/2019 2:48 PM CDT 03/12/2019 3:01 PM CDT Narrative [facility] - 03/12/2019 9:09 PM CDT us Jhonny Headley MD LAB BLOOD ORDERABLES Final R esult Performing Organization Address [facility] Co de Phone Number [facility] [place] [address] * DIGITAL MAMMOGRAPHY (11/04/2013 2:19 PM PIVOT [employer] POL[employer]ER) Anatomical Region Laterality Modality Breast Mammography 11/04/2013 2:19 PM [employer]OT [employer]ER Narrative 11/04/2013 7:55 PM [employer] Screening Mamm Bi Acc#: [id number] DATE OF EXAM: Nov 04 2013 CLINICAL [...] Joan - 03/17/2017 Screening Mamm Bi Acc#: [id number] DATE OF EXAM: Nov 04 2013 CLINICAL [...] was utilized in interpretation of these images. [facility] [...] KAVON COSBY Attending DR: KAVON COSBY us [facility] Provider MD SAINZ MAMMO PROCEDURES Yue l Result from Last 3 Months or Most Recently Relevant to Health Maintenance Insurance [facility] [employer] [facility] [place] [id number] Advance Directives For more information, please contact: [phone] * Full Code (Latest Code Status on File) Date Activated Date Inactivated Comments 03/12/2019 4:27 PM 03/17/2019 10:36 PM Care Teams Baseball Coach Relationship Specialty [place] [address] [address] [address] PCP - General Family Practice 05/27/22 [place] [address] [address] [address] 03/12/19
[2025-02-27 20:14] LABS: Alanine Aminotransferase 25 U/L (6-35); Albumin Level 4.2 g/dL (3.5-5.1); Alkaline Phosphatase 60 U/L (38-126); Anion Gap 10 mmol/L (4-12); Aspartate Amino Transferase 64 U/L (14-36); Bilirubin,Total 1.1 mg/dL (0.2-1.3); Blood Urea Nitrogen 11 mg/dL (7-17); Calcium 9.8 mg/dL (8.4-10.2); Carbon Dioxide 31 mmol/L (22-30); Chloride 101 mmol/L (98-107); Cholesterol 164 mg/dL (0-200); Estimated Glomerular Filt Rate > 60; Glucose 153 mg/dL (65-110); HDL Direct 48 mg/dL; Potassium 4.3 mmol/L (3.4-5.0); Sodium 142 mmol/L (137-145); Triglycerides 192 mg/dL (<150)
[2025-02-27 20:25] LABS: LDL Cholesterol Direct 65 mg/dL
[2025-02-27 21:47] LABS: Hemoglobin A1C 8.8 % (<5.7)
[2025-02-27 23:27] LABS: Creatinine Urine 81.8 mg/dL
[2025-02-27 23:30] LABS: MALB Creatinine Ratio 14.4 mg/g (0-30); Microalbumin Urine Random 11.8 mg/L (0-16.7)
== END 2025-02-27 11:39 | disposition home or self-care (01) ==
PROVIDERS: PCP Nurse Practitioner Adult Health; Visit Provider Nurse Practitioner Adult Health
DX: E11.9 Type 2 diabetes mellitus without complications (principal)
CPT/HCPCS: 36415; 80053; 80061; 82043; 82565; 83036

== ENCOUNTER 2025-06-14 09:17 | Outpatient (CLI) | payer OTHER, SELFPAY ==
--- NOTE | ~2025-06-14 | CT_ITS ---
EXAMINATION: CT abdomen pelvis wo con DATE: 06/14/2025 09:44 INDICATION: Diaphragmatic hernia without obstruction or gangrene TECHNIQUE: Computed tomography (CT) of the abdomen and pelvis was performed without intravenous contr ast. Automated exposure control and iterative reconstruction technique were employed. The dose-length product was 1726.91 mGy-cm. COMPARISON: None FINDINGS: Large sliding-type hiatal hernia containing the majority the stomach as well as a small amount of asc ites. There is compressive atelectasis along side the hernia at the medial aspect of the lingula and bilateral middle lobes. Additional mild discoid atelectasis in the right middle lobe. Heart size is n ormal. Small pericardial effusion. Numerous gallstones within the decompressed gallbladder without ev ident wall thickening or pericholecystic inflammatory stranding to suggest acute cholecystitis. Marke d atrophy of the left hepatic lobe. There also small peripheral wedge-shaped region of decreased atte nuation along the capsule at the cephalad aspect of the dome of the liver. Addition indeterminate mor e subtly hypodense approximately 1.5 cm nodule at the dome of the liver. Spleen, pancreas and bilater al adrenal glands are normal. Bilateral low-attenuation adrenal nodules consistent with adenomas the largest on the left measuring 2.1 cm. There are few scattered clonic diverticula without adjacent inf lammatory stranding to suggest diverticular colitis. Small bowel and appendix are normal. Bladder is normal. The uterus and right ovary are not identified and have likely been surgically resected. Left ovary is unremarkable. No free intraperitoneal gas or fluid in the abdomen or pelvis. No pathological ly enlarged abdominal or pelvic lymphadenopathy. Mild lumbar and moderate thoracic spondylosis. IMPRESSION: 1. Large sliding-type hiatal hernia containing the majority the stomach and small amount of ascites. 2. Indeterminate 1.5 cm hypodense lesion at the dome of the liver represent a hemangioma or other carroll plasm either benign or malignant which is located in the vicinity of peripheral wedge-shaped regions of decreased attenuation suggestive of scarring related indeterminate insult. Correlate with clinical history and recommend further evaluation with pre and postcontrast MRI or CT. 3. Cholelithiasis. Reviewed, dictated and finalized at location A. IMPRESSION: 1. Large sliding-type hiatal hernia containing the majority the stomach and sma ll amount of ascites. 2. Indeterminate 1.5 cm hypodense lesion at the dome of the liver represent a h emangioma or other neoplasm either benign or malignant which is located in the vicinity of peripheral wedge-shaped regions of decreased attenuation suggestive of scarring related indeterminate insult. Correlate with clinical history and recommend further evaluation with pre and postcontrast MRI or CT. 3. Cholelithiasis.
--- OUTSIDE RECORDS SUMMARY | 2025-06-14 09:32 | XMS_ITS | Clinical Summary ---
Author Organization [facility] Address [address] [place] [address] Phone Care Team Providers Care Trial Paralegal Name Role Phone Analy Wilkerson APRN, YARN MAN Unavailable Armen Johns MD Primary Care Provider [phone] Allergies Active Allergy Reactions Criticality Noted Date [...] USE DIRECTED TO TEST BLOOD SUGAR 0 03/30/20 16 Active polycarbophil calcium (FIBERCON) 625 MG Tablet 625 mg as needed. 11/02/20 19 Active ibuprofen (MOTRIN) 800 MG Tablet Take 800 mg by mouth 3 times daily (with meals). Active ALPRAZolam (XANAX) 0.5 MG Tablet Take 0.5 mg by mouth 3 times daily as needed. Pt sometimes takes only 1/2 tab. Active Vitamin D3 1.25 MG (97878 UT) Capsule Take 5,000 Units by mouth every 7 days. 11/13/20 24 Active famotidine (PEPCID) 20 MG Tablet Take 20 mg by mouth daily. 01/02/20 25 Active Ferrous Sulfate 325 (65 Fe) MG Tablet Delayed Response Take 325 mg by mouth daily. 12/14/19 25 Active Lantus SoloStar 100 UNIT/ML Solution Pen-injector 20 Units by Subcutaneous route nightly. Active lisinopril (PRINIVIL, ZESTRIL) 2.5 MG Tablet Take 2.5 mg by mouth daily. 11/13/20 Active pantoprazole (PROTONIX) 40 MG Tablet Delayed Response Take 40 mg by mouth daily. 11/02/20 Active rosuvastatin (CRESTOR) 5 MG Tablet Take 5 mg by mouth every evening. 12/20/19 25 Active Mounjaro 2.5 MG/0.5ML Solution Auto-injector 2.5 mg by Subcutaneous route every 7 days. 12/21/19 25 Active albuterol 108 (90 Base) MCG/ACT Aerosol Solution take 1 Puff by inhalation every 4 hours as needed. 12/29/19 Active Albuterol Sulfate (ProAir RespiClick) 108 (90 Base) MCG/ACT AEROSOL POWDER, BREATH ACTIVATED 2 Puffs. 10/24/20 Active gabapentin (NEURONTIN) 600 MG Tablet Take 1,200 mg by mouth 3 times daily. 12/27/19 Active HYDROcodone-acet aminophen (NORCO) 10-325 MG Tablet Take 1 Tablet by mouth every 8 hours as needed for Moderate or more severe pain. Active ondansetron (ZOFRAN-ODT) 4 MG TABLET DISPERSIBLE DISSOLVE 1 TABLET IN MOUTH EVERY 6 HOURS NEEDED FOR NAUSEA AND VOMITING 01/28/20 Active Empagliflozin (Jardiance) 10 MG Tablet Take 10 mg by mouth daily. Active fluconazole (DIFLUCAN) 150 MG Tablet Take one tablet today then one tablet in 72 hours. 2 Tablet 02/05/20 25 Active levoFLOXacin (Levaquin) 750 MG TabletIndication s:Lower respiratory infection (e.g., bronchitis, pneumonia, pneumonitis, pulmonitis) Take 1 Tablet by mouth daily for 5 days. 5 Tablet 06/11/20 25 025 Active predniSONE (DELTASONE) 20 MG TabletIndication s:Moderate persistent asthma with acute exacerbation Take 2 Tablets by mouth daily for 5 days. 10 Tablet 06/11/20 25 025 Active predniSONE (DELTASONE) 10 MG Tablet Take 3 tabs by mouth everyday for 3 days, then take 2 tabs by mouth every day for 2 days, then 1 tab orally x 1 day and done. 14 Tablet 01/19/20 25 025 Discontin ued(Thera py completed ) Active Problems Problem Noted Date Diagnosed Date [...] Encounters Date Type Department Care Team Description 06/12/2025 Results Follow-Up [facility] [address] [place] [address] Shad Ospina, AKHIL XR CHEST 2 VIEWS 06/11/2025 6:00 PM CDT Ancillary Procedure [facility] [place] [address] [place] [address] Malini Weathers APRN, KEIRY Acute cough; SOB (shortness of breath) Discharge Disposition: Discharged to home or Selfcare 06/11/2025 5:15 PM CDT Urgent Care Visit [facility] [address] [place] [address] Malini Weathers APRN, KEIRY Acute cough (Primary Dx); Lower respiratory infection (e.g., bronchitis, pneumonia, pneumonitis, pulmonitis); SOB (shortness of breath); Nausea; Moderate persistent asthma with acute exacerbation; Type 2 diabetes mellitus with diabetic neuropathy, with long-term current use of insulin (HCC) Discharge Disposition: Discharged to home or Selfcare 06/11/2025 Telephone [facility] [place] [address] [place] [address] Nurse, Branden Kim [facility] xray results 06/11/2025 Travel from Last 3 Months Immunizations Immunization Administration Dates Next Due Influenza Vaccine, Quadrivalent, PF 1111/2021,09/13/2021,03/11/2020,10/30 Influenza, Injectable, Quadrivalent 09/25/2016 Influenza, Seasonal, Injecta ble, Undefined 10/25/2015 Influenza,Split Virus,Trivalent,Injectable,PF 10/27/2013 Pneumococcal Vaccine Adult - 23 Valent ,03/11/2020 Pneumococcal conjugate PCV20 , polysaccharide [id number] conjugate, adjuvant, PF 05/09/2023 TDAP Vaccine 03/12/2019 [...] = 0.6 oz pur e alcohol) Rarely [employer] Utilities Answer Date Recorded In the past 12 months has th e [employer], oil, or water [employer] threatened to shut off services in your [...] any time in the [facility] you [facility] or living in a fdc (including now)? No 01/12/2025 Comments No Sex [...] Reading Time Taken Comments Blood Pressure 138/68 06/11/2025 5:30 PM CDT Pulse 84 06/11/2025 5:30 PM CDT Temperature 36.5 C (97.7 F) 06/11/2025 5:30 PM CDT Respiratory Rate 18 06/11/2025 5:30 PM CDT Oxygen Saturation 93% 06/11/2025 5:30 PM CDT Inhaled Oxygen Concentration - - Weight 128.4 kg (283 lb) 01/12/2025 8:44 AM BUGGYMAN Height 182.9 cm (6') 01/12/2025 8:44 AM BUGGYMAN Body Mass Index 38.38 01/12/2025 8:44 AM BUGGYMAN Plan of Treatment Health Maintenance Due Date Last Done Comments Diabetes: Eye Exam 1962 Diabetes: Foot Exam 1960 Hepatitis C Virus (HCV) Screening 1960 Cologuard 2007 Mammogram 04/30/2019 04/30/2018 Immunochemical Fecal Occult Blood 03/11/2021 03/11/2020 Respiratory Syncytial Virus (RSV) Immunization (Adult) (1 - Risk 60-74 years 1-dose series) 2022 SARS-COV-2 Immunization ( season) 2024 12/20/2021, 03/22/2021, 02/22/2021 Diabetes: Hemoglobin A1c 07/11/2025 025, 03/09/2020, 03/12/2019, Additional history exists Influenza Immunization (#1) 2025 11/0 11/2021, 09/13/2021, 03/11/2020, Additional history exists Diabetes: Nephropathy Screening 01/11/2026 01/11/2025, 05/26/2022, 05/24/2022, Additional history exists Colonoscopy 11/03/2026 11/03/2016 Colorectal Cancer Screening 11/03/2026 Td Immunization Every 10 Years (Adults With 1 Tdap) 03/12/2029 03/12/2019 DTaP/Tdap/Td Immunization Discontinued 03/12/2019 TdaP Immunization Discontinued 03/12/2019 Pneumococcal Immunization (50+ years) Completed 05/09/2023, 09/13/2021, 03/11/2020 Pneumococcal Immunization Combined Discontinued 05/09/2023, 09/13/2021, 03/11/2020 Zoster Immunization Completed 09/19/2023, 3 Hepatitis B Immunization Aged Out No longer eligible based on patient's age to complete this topic Human Papillomavirus (HPV) Immunization Aged Out No longer eligible based on patient's age to complete this topic Meningococcal Immunization (ACWY) Aged Out No longer eligible based on patient's age to complete this topic Rotavirus Immunization Aged Out No lo nger eligible based on patient's age to complete this topic Procedures Procedure Name Priority Date/Time Associated Diagnosis Comments XR CHEST 2 VIEWS Stat with Interpretation 06/11/2025 6:02 PM CDT Acute cough SOB (shortness of breath) POC SARS-COV-2 BY MOLECULAR Routine 06/11/2025 5:47 PM CDT Acute cough SOB (shortness of breath) Nausea CMP (COMPREHENSIVE METABOLIC PANEL) STAT 01/11/2025 10:29 PM BUGGYMAN HEMOGLOBIN A1C W/ ESTIMATED GLUCOSE STAT 01/11/2025 10:29 PM BUGGYMAN STOOL, OCCULT BLOOD, DIAGNOSTIC, VIA GUAIAC Routine 03/11/2020 12:35 AM CDT BRIGITTE DIAG BILATERAL DIGITAL W CAD W LANDEN Routine 04/30/2018 11:03 AM CDT Unspecified lump in the left breast, upper inner quadrant from Last 3 Months or Most Recently Relevant to Health Maintenance Results * XR CHEST 2 VIEWS (06/11/2025 6:02 PM CDT) Anatomical Region Laterality Modality Chest N/A Digital Radiogra phy 06/11/2025 6:26 PM CDT Impressions 06/11/2025 6:28 PM CDT IMPRESSION: No acute cardiopulmonary abnormality. Stable large hiatal hernia. Narrative 06/11/2025 6:28 PM CDT EXAM DESCRIPTION: XR CHEST 2 VIEWS REASON FOR STUDY: Cough and SOB for 5 days TECHNIQUE: 2 radiographic view(s) of the chest. COMPARISON: 01/16/2025 FINDINGS: LUNGS: Left lower lobe atelectasis. No acute consolidation. No pneumothorax or pleural effusion. HEART/MEDIASTINUM: Cardiac silhouette normal in size. Mediastinal and hilar contours appear normal. LINES/TUBES: None. BONES: No acute osseous abnormality. Stable large hiatal hernia. THIS IS AN ELECTRONICALLY VERIFIED FINAL REPORT 06/11/2025 6:26 PM - Electronically signed by Flex Young M.D. KR: KR Report ID: [id number] Reading Location: [id number] Procedure Note Flex Young MD - 06/11/2025 EXAM DESCRIPTION: XR CHEST 2 VIEWS REASON FOR STUDY: Cough and SOB for 5 days TECHNIQUE: 2 radiographic view(s) of the chest. COMPARISON: 01/16/2025 FINDINGS: LUNGS: Left lower lobe atelectasis. No acute consolidation. No pneumothorax or pleural effusion. HEART/MEDIASTINUM: Cardiac silhouette normal in size. Mediastinal and hilar contours appear normal. LINES/TUBES: None. BONES: No acute osseous abnormality. Stable large hiatal hernia. THIS IS AN ELECTRONICALLY VERIFIED FINAL REPORT 06/11/2025 6:26 PM - Electronically signed by Flex Young M.D. KR: LACI Report ID: [id number] Reading Location: [id number] IMPRESSION: No acute cardiopulmonary abnormality. Stable large hiatal hernia. Malini Weathers APRN, CNP IMG DIAGNOSTIC ORDER NICKI Final Result * POC SARS-COV-2 BY MOLECULAR (06/11/2025 5:47 PM CDT) SARSCOV2 Negative Negative, INVALID PROCEDURE CONTROL Valid 06/11/2025 5:47 PM CDT Malini Weathers APRN, CNP POINT OF CARE TESTIN G (MANUAL) Final Result * (ABNORMAL) Hemoglobin A1C (if indicated) (01/11/2025 10:29 PM BUGGYMAN) HGB-A1C 11.8(H) 4.0 - 6.0 % 01/12/2025 4:45 AM BUGGYMAN [facility] Est Average Glucose 292.0 mg/dL 01/12/2025 4:45 AM BUGGYMAN [facility] Blood Venipuncture / Unknown 01/11/2025 10:29 PM BUGGYMAN 01/11/2025 10:45 PM BUGGYMAN Narrative [facility] - 01/12/2025 4:45 AM BUGGYMAN HEMOGLOBIN A1C: DIABETIC PATIENTS: WELL-CONTROLLED: 6.2 - 7.0 INTERMEDIATE WELL-CONTROLLED: 7.0 - 9.0 POORLY-CONTROLLED: >9.0 Specimens containing greater than 5% of Hemoglobin F may result in lower than expected % HbA1C results. us Katy Otero APRN, CNP CHEMISTRY ORDERABLES Yue l Result [facility] [address] [place] [address] * (ABNORMAL) CMP (01/11/2025 10:29 PM [facility]) SODIUM 138 136 - 145 mmol/L 01/11/2025 11:07 PM [facility] POTASSIUM 4.7 3.5 - 5.1 mmol/L 01/11/2025 11:07 PM [facility] Comment: Specimen is hemolyzed. In vitro hemolysis could affect results. Clinical correlation advised. CHLORIDE 106 98 - 107 mmol/L 01/11/2025 11:07 PM [facility] CO2, VENOUS 20(L) 22 - 30 mmol/L 01/11/2025 11:07 PM [facility] ANION GAP 16.7 <18.0 mmol/L 01/11/2025 11:07 PM [facility] GLUCOSE 318(H) 70 - 99 mg/dL 01/11/2025 11:07 PM [facility] BUN 21(H) 10 - 20 mg/dL 01/11/2025 11:07 PM [facility] CREATININE, BLOOD 1.83(H) 0.60 - 1.00 mg/dL 01/11/2025 11:07 PM [facility] BUN/CREATININE RATIO 11(L) 12 - 20 ratio 01/11/2025 11:07 PM [facility] TOTAL PROTEIN 8.2(H) 6.0 - 8.0 g/dL 01/11/2025 11:07 PM [facility] Comment: Specimen is hemolyzed. In vitro hemolysis could affect results. Clinical correlation advised. ALBUMIN 3.5 3.5 - 5.0 g/dL 01/11/2025 11:07 PM [facility] A/G RATIO 0.7(L) 1.0 - 2.2 01/11/2025 11:07 PM [facility] CALCIUM 8.9 8.7 - 10.5 mg/dL 01/11/2025 11:07 PM [facility] T BILI 0.6 0.2 - 1.2 mg/dL 01/11/2025 11:07 PM [facility] SGOT (AST) 37 <43 U/L 01/11/2025 11:07 PM [facility] Comment: Specimen is hemolyzed. In vitro hemolysis could affect results. Clinical correlation advised. SGPT (ALT) 17 <56 U/L 01/11/2025 11:07 PM [facility] ALKALINE PHOSPHATASE 66 40 - 150 U/L 01/11/2025 11:07 PM BUGGYMAN [facility] GFR, ESTIMATED 31(L) >=60 01/11/2025 11:07 PM [facility] Comment: Creatinine Clearance is the preferred criteria for selecting drug dose adjustments in renally impaired patients. The GFR is provided as additional pertinent clinical information. GFR is reported in mL/min/1.73 sq m. Calculation based on the Chronic Kidney Disease Epidemiology Collaboration (CKD- EPI) equation refit without adjustment for race. GFR, EST. 34(L) >=60 025 11:07 PM BUGGYMAN [facility] GFR, EST. NONAFRICAN 28(L) >=60 01/11/2025 11:07 PM BUGGYMAN [facility] Blood Venipuncture / Unknown 01/11/2025 10:29 PM BUGGYMAN 01/11/2025 10:45 PM BUGGYMAN us Shady Irby MD CHEMISTRY ORDERABLES Final Result [facility] [address] [place] [address] * Stool, Occult Blood, Diagnostic (03/11/2020 12:35 AM CDT) OCCULT BLOOD DIAG Negative Negative 03/11/2020 1:11 AM CDT [facility] Stool specimen (specimen) STOOL SPECIMEN / Unknown Non-Phlebotomy Collection / Unknown 03/11/2020 12:35 AM CDT 03/11/2020 12:41 AM CDT us Alyssia Leyva APRN, YARN MAN BODY FLUIDS & STOOL S ORDERABLES Final Result [facility] [address] [address] * BRIGITTE DIAG BILATERAL DIGITAL W CAD [...] copy. Current study was also evaluated with XetawaveD version 7.2. CLINICAL: Diagnostic study. Patient reports [...] exams dated: 11/03/2006, 11/04/2013, 10/27/2006, and 10/27/2006 [facility]. BREAST TISSUE:There are scattered fibroglandular densities [...] signed by: Sintia Duarte M.D. ll/:04/30/2018 11:30:16 Meter Shop Supervisor: Marcia Resendiz (R), [facility] letter sent: Normal Exam Reading location: [facility] OVERALL STUDY BIRADS: 2 Benign Procedure Note Sintia Duarte MD - 05/01/2018 - BRIGITTE DIAG BILATERAL DIGITAL W CAD W LANDEN - BRIGITTE US BREAST LIMITED LT BILATERAL DIGITAL DIAGNOSTIC MAMMOGRAM 3D/2D WITH CAD AND TARGETED LEFT ULTRASOUND WITH MEDIOLATERAL OBLIQUE CRANIOCAUDAL: 04/30/2018 The study was acquired using digital technology and interpreted from soft copy. Current study was also evaluated with Tocomail version 7.2. CLINICAL: Diagnostic study. Patient reports [...] exams dated: 11/03/2006, 11/04/2013, 10/27/2006, and 10/27/2006 [facility]. BREAST TISSUE:There are scattered fibroglandular densities [...] signed by: Sintia Duarte M.D. 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 Care Teams Trial Paralegal Relationship Specialty Start Date End Date Armen Johns MD [address] [place] [id number] PCP - General Family Medicine 05/26/22 Analy Wilkerson, POST ACUTE CARE NURSE, YARN MAN Nurse Practitioner Advanced Practice Nurse 07/25/16
--- OUTSIDE RECORDS SUMMARY | 2025-06-14 09:32 | XMS_ITS | Clinical Summary ---
Author Organization [facility] Address [address] [place] [address] Care Team Providers Care Technical Applications Scientist Name Role Phone Nena Garcia NP Unavailable [phone] Armen Johns MD Primary Care Provider [phone] Allergies Active Allergy Reactions Criticality Noted Date Comments Codeine Itching Low 07/25/2016 Warfarin Other (See comments) High 03/15/2019 bleed out- no matter dose Morphine Other (See comments) [...] 9 Active blood-glucose meter (ONETOUCH ULTRA2 METER) [facility] USE DIRECTED TO TEST BLOOD SUGAR 6 [...] neuropathy, without long-term current use of insulin (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 Not on file Not on file Obstetrics History Last Filed Vital Signs Vital Sign Reading Time Taken Comments Blood Pressure 122/74 10/16/2024 6:48 PM CONSTRUCTION PLUMBER Pulse 70 10/16/2024 6:48 PM CONSTRUCTION PLUMBER Temperature 36.7 C (98.1 F) 10/16/2024 6:48 PM CONSTRUCTION PLUMBER Respiratory Rate 17 10/16/2024 6:48 PM CONSTRUCTION PLUMBER Oxygen Saturation 98% 10/16/2024 6:48 PM CONSTRUCTION PLUMBER Inhaled Oxygen Concentration - - Weight 136.1 kg (300 lb) 10/16/2024 6:48 PM CONSTRUCTION PLUMBER per patient Height 182.9 cm (6') 10/16/2024 6:48 PM CONSTRUCTION PLUMBER Body Mass Index 40.69 10/16/2024 6:48 PM CONSTRUCTION PLUMBER Plan of Treatment Health Maintenance Due Date [...] 2 - PCV) 03/11/2021 03/11/2020 Influenza Vaccine (Season Ended) 2025 03/11/2020, 10/30/2017, 09/25/2016, Additional history exists DTaP/Tdap/Td Vaccine (2 - Td or Tdap) 03/12/2029 03/12/2019 Procedures Procedure Name Priority Date/Time Associated Diagnosis Comments LIPID PANEL Routine 03/13/2019 1:03 AM CDT HEMOGLOBIN A1C STAT 03/12/2019 2:48 PM CDT DIGITAL MAMMOGRAPHY Routine 11/04/2013 2 :19 PM CONSTRUCTION PLUMBER from Last 3 Months or Most Recently Relevant to Health Maintenance Results * Lipid panel (03/13/2019 1:03 AM CDT) Cholesterol 182 30 - 199 mg/dL [facility] Comment: Interpretive Data Ages < or = [...] on 2018. Triglycerides 78 <=149 mg/dL [facility] Comment: Interpretive Data Ages < or = [...] Pediatrics 2011;128:S213 2. NCEP Expert Panel. Circulation 2003;110:227 Current Interpretive Data was last revised on 2018. HDL 45 >=40 mg/dL [facility] Comment: Interpretive Data Ages < or = 19 years Acceptable: >45 mg/dL Borderline low: 40-45 mg/dL Low: <40 mg/dL Ages > or = 20 years Desirable: >or= 60 mg/dL Low: <40 mg/dL Literature References: 1. Expert Panel on Integrated Guidelines for Cardiovascular Health and Risk Reduction in Children and Adolescents. Pediatrics 2011;128:S213 2. NCEP Expert Panel. Circulation 2003;110:227 Current Interpretive Data was last revised on 2018. LDL, calculated 121 <=129 mg/dL [facility] Comment: Interpretive Data Ages < or = [...] on 2018. Non-HDL Cholesterol 136 mg/dL [facility] Comment: Interpretive Data Ages < or = [...] last revised on 2018. Chol/HDL ratio 4 [facility] Blood specimen (specimen) 03/13/2019 1:03 AM CDT 03/13/2019 12:42 PM CDT Narrative [facility] - 03/14/2019 2:21 AM CDT [place] MD LAB BLOOD ORDERABL ES Final Result Performing Organization Address [facility] de Phone Number [facility] Department [place] [address] * (ABNORMAL) Hemoglobin A1c (03/12/2019 2:48 PM CDT) Hgb A1C 9.3(H) 4.0 - 5.6 % [facility] Estimated Average Glucose 220 mg/dL [facility] Comment: The ADA recommends reporting an estimated Average Glucose (eAG) with all Hemoglobin A1c results using the equation derived from a study of 507 normal and diabetic adults. Minority populations were underrepresented and children were not included. (Diabetes Care 31:7797-2255, 2008). The eAG is not equivalent to a fasting glucose. Blood specimen (specimen) 03/12/2019 2:48 PM CDT 03/12/2019 3:01 PM CDT Narrative [facility] - 03/12/2019 9:09 PM CDT us Jhonny Headley MD LAB BLOOD ORDERABLES Final R esult Performing Organization Address [facility] de Phone Number [facility] Department [place] [address] * DIGITAL MAMMOGRAPHY (11/04/2013 2:19 PM CONSTRUCTION PLUMBER) Anatomical Region Laterality Modality Breast Mammography 11/04/2013 2:19 PM CONSTRUCTION PLUMBER Narrative 11/04/2013 7:55 PM CONSTRUCTION PLUMBER Screening Mamm Bi Acc#: [id number] DATE OF EXAM: Nov 04 2013 CLINICAL [...] Joan - 03/17/2017 Screening Mamm Bi Acc#: [id number] DATE OF EXAM: Nov 04 2013 CLINICAL [...] was utilized in interpretation of these images. [facility] utilizes a reminder system to [...] DR: KAVON COSBY Attending DR: KAVON COSBY [facility] Provider MD [facility] MAMMO PROCEDURES Yue l Result from Last 3 Months or Most Recently Relevant to Health Maintenance Insurance [facility] PLAN [facility] [place] [id number] Advance Directives For more information, please contact: [phone] * Full Code (Latest Code Status on File) Date Activated Date Inactivated Comments 03/12/2019 4:27 PM 03/17/2019 10:36 PM Care Teams Technical Applications Scientist Relationship Specialty [place] [id number] [address] PCP - General Family Practice 05/27/22 [place] [id number] [address] [address] 03/12/19
--- OUTSIDE RECORDS SUMMARY | 2025-06-14 09:32 | XMS_ITS | Referral Summary ---
Author Organization [facility] Address [address] [place] [address] Care Team Providers Care Teaching Assistant Name Role Phone Nena Garcia NP Unavailable [phone] Armen Johns MD Primary Care Provider [phone] Allergies Active Allergy Reactions Criticality Noted Date [...] 9 Active blood-glucose meter (ONETOUCH ULTRA2 METER) [facility] USE DIRECTED TO TEST BLOOD SUGAR 6 [...] neuropathy, without long-term current use of insulin ([facility]) 03/17/2019 Assessment & Plan (03/17/2019 4:18 PM CDT): 58-year-old woman with history of type 2 diabetes admitted March 12, 2019 after 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 Not on file Not on file Last Filed Vital Signs Vital Sign Reading Time Taken Comments Blood Pressure 122/74 10/16/2024 6:48 PM AIRPORT BAGGAGE SCREENER Pulse 70 10/16/2024 6:48 PM AIRPORT BAGGAGE SCREENER Temperature 36.7 C (98.1 F) 10/16/2024 6:48 PM AIRPORT BAGGAGE SCREENER Respiratory Rate 17 10/16/2024 6:48 PM AIRPORT BAGGAGE SCREENER Oxygen Saturation 98% 10/16/2024 6:48 PM AIRPORT BAGGAGE SCREENER Inhaled Oxygen Concentration - - Weight 136.1 kg (300 lb) 10/16/2024 6:48 PM AIRPORT BAGGAGE SCREENER per patient Height 182.9 cm (6') 10/16/2024 6:48 PM AIRPORT BAGGAGE SCREENER Body Mass Index 40.69 10/16/2024 6:48 PM AIRPORT BAGGAGE SCREENER Plan of Treatment Not on file Procedures Procedure Name Priority Date/Time Associated Diagnosis Comments LIPID PANEL Routine 03/13/2019 1:03 AM CDT HEMOGLOBIN A1C STAT 03/12/2019 2:48 PM CDT DIGITAL MAMMOGRAPHY Routine 11/04/2013 2 :19 PM AIRPORT BAGGAGE SCREENER from Last 3 Months or Most Recently Relevant to Health Maintenance Results * Lipid panel (03/13/2019 1:03 AM CDT) Cholesterol 182 30 - 199 mg/dL [facility] Comment: Interpretive Data Ages < or = [...] revised on 2018. Triglycerides 78 <=149 mg/dL [facility] Comment: Interpretive Data Ages < or = [...] revised on 2018. HDL 45 >=40 mg/dL [facility] Comment: Interpretive Data Ages < or = [...] on 2018. LDL, calculated 121 <=129 mg/dL [facility] Comment: Interpretive Data Ages < or = [...] revised on 2018. Non-HDL Cholesterol 136 mg/dL [facility] Comment: Interpretive Data Ages < or = [...] MD LAB BLOOD ORDERABL ES Final Result [facility] Department [place] [address] * (ABNORMAL) Hemoglobin A1c (03/12/2019 2:48 PM CDT) Hgb A1C 9.3(H) 4.0 - 5.6 % [facility] Estimated Average Glucose 220 mg/dL [facility] Comment: The ADA recommends reporting an estimated Average Glucose (eAG) with all Hemoglobin A1c results using the equation derived from a study of 507 normal and diabetic adults. Minority populations were underrepresented and children were not included. (Diabetes Care 31:9867-3696, 2008). The eAG is not equivalent to a fasting glucose. Blood specimen (specimen) 03/12/2019 2:48 PM CDT 03/12/2019 3:01 PM CDT Narrative [facility] - 03/12/2019 9:09 PM CDT us Jhonny Headley MD LAB BLOOD ORDERABLES Final R esult [facility] Department [place] [address] * DIGITAL MAMMOGRAPHY (11/04/2013 2:19 PM AIRPORT BAGGAGE SCREENER) Anatomical Region Laterality Modality Breast Mammography 11/04/2013 2:19 PM AIRPORT BAGGAGE SCREENER Narrative 11/04/2013 7:55 PM AIRPORT BAGGAGE SCREENER Screening Mamm Bi Acc#: [id number] DATE OF EXAM: Nov 04 2013 CLINICAL [...] Joan - 03/17/2017 Screening Mamm Bi Acc#: [id number] DATE OF EXAM: Nov 04 2013 CLINICAL [...] DR: KAVON COSBY Attending DR: KAVON COSBY [facility] Provider MD SAINZ MAMMO PROCEDURES Yue l Result from Last 3 Months or Most Recently Relevant to Health Maintenance Insurance [facility] PLAN [facility] [place] [id number] Advance Directives For more information, please contact: [phone] * Full Code (Latest Code Status on File) Date Activated Date Inactivated Comments 03/12/2019 4:27 PM 03/17/2019 10:36 PM Care Teams Teaching Assistant Relationship Specialty [place] [id number] [address] PCP - General Family Practice 05/27/22 Nena Garcia, WHITING CAN WORKER [id number] [address] 03/12/19
--- OUTSIDE RECORDS SUMMARY | 2025-06-14 09:32 | XMS_ITS | Encounter Summary ---
Author Organization [facility] Address [address] [place] [address] Phone Care Team Providers Care Sales Trainer Name Role Phone Analy Wilkerson LYNDA, CAKE WRINGER Unavailable Armen Johns MD Primary Care Provider [phone] Encounter Details Date Type Department Care Team (Late st Contact Info) Description 06/12/2025 Results Follow-Up [facility] [place] [address] [place] [address] Shad Ospina, AKHIL [address] [place], [place] [id number] XR CHEST 2 VIEWS Social History Tobacco Use Types Packs/Day Years Used Date Smoking Tobacco: Never Smokeless Tobacco: Never Alcohol Use Standard Drinks/Week Comments Not Currently 0 (1 standard drink = 0.6 oz pur e alcohol) Rarely [facility] Utilities Answer Date Recorded In [...] any time in the past 12 [facility], were you homeless or living in a custodial (including now)? No 01/12/2025 Comments No Sex [...] documented as of this encounter Care Teams Sales Trainer Relationship Specialty Start Date End Date Armen Johns MD [address] [place] [id number] PCP - General Family Medicine 05/26/22 Analy Wilkerson APRN, CAKE WRINGER Nurse Practitioner Advanced Practice Nurse 07/25/16 documented as of this encounter
== END 2025-06-14 09:18 | disposition home or self-care (01) ==
PROVIDERS: PCP Nurse Practitioner Adult Health; Visit Provider Surgery
DX: K44.9 Diaphragmatic hernia without obstruction or gangrene (principal); R18.8 Other ascites; K76.9 Liver disease, unspecified; K80.20 Calculus of gallbladder without cholecystitis without obstruction
CPT/HCPCS: 74176

== ENCOUNTER 2025-07-05 08:55 | Outpatient (CLI) | payer OTHER, SELFPAY ==
--- NOTE | ~2025-07-05 | CT_ITS ---
EXAMINATION: CT abdomen pelvis wo/w con DATE: 07/05/2025 09:18 INDICATION: Liver disease TECHNIQUE: Computed tomography (CT) of the abdomen and pelvis was performed with and without intraven ous contrast. The dose-length product was 3767.81 mGy-cm. COMPARISON: CT abdomen and pelvis 06/14/2025 FINDINGS: Grossly stable hiatal hernia. Cholelithiasis. There is a 5.0 x 5.8 x 5.2 cm heterogeneous masslike structure in the right lobe of the liver near th e liver dome. The finding heterogeneously enhances with contrast administration. There is a 1.3 cm ce ntral low-density region postcontrast. The finding is nonspecific. A biopsy is recommended. Indeterminant 1.9 cm low-density lesion in the medial segment of the left lobe of the liver anteriorl y. The finding does not enhance with contrast ministration. A liver mass MRI is recommended. There is a 2.3 cm left adrenal nodule. CT findings suggest an adrenal adenoma. Kidneys, pancreas and spleen are unremarkable. Abdominal aorta is not aneurysmal. No enlarged lymph nodes identified in the abdomen or pelvis. Bladder is unremarkable. Mild diverticul osis. No colitis. Osseous structures are similar to the prior study. There are a few small subcentimeter sclerotic dens ities in the pelvis which statistically most likely represent bone islands. Other etiologies are poss ible. If of concern, consider a total body bone scan. IMPRESSION: 1. There is a 5.0 x 5.8 x 5.2 cm heterogeneous masslike structure in the right lobe of the liver near the liver dome. The finding heterogeneously enhances with contrast administration. There is a 1.3 cm central low-density region postcontrast. The finding is nonspecific. A biopsy is recommended. 2. Indeterminant 1.9 cm low-density lesion in the medial segment of the left lobe of the liver anteri melany. The finding does not enhance with contrast ministration. A liver mass MRI is recommended. 3. There is a 2.3 cm left adrenal nodule. CT findings suggest an adrenal adenoma. A follow-up CT stud y in 6 months recommended. 4. Stable hiatal hernia. 5. Cholelithiasis. Findings as above. Reviewed, dictated and finalized at location A. IMPRESSION: 1. There is a 5.0 x 5.8 x 5.2 cm heterogeneous masslike structure in the right lobe of the liver near the liver dome. The finding heterogeneously enhances wit h contrast administration. There is a 1.3 cm central low-density region postcon trast. The finding is nonspecific. A biopsy is recommended. 2. Indeterminant 1.9 cm low-density lesion in the medial segment of the left lo be of the liver anteriorly. The finding does not enhance with contrast ministra tion. A liver mass MRI is recommended. 3. There is a 2.3 cm left adrenal nodule. CT findings suggest an adrenal adenom a. A follow-up CT study in 6 months recommended. 4. Stable hiatal hernia. 5. Cholelithiasis. Findings as above.
--- OUTSIDE RECORDS SUMMARY | 2025-07-05 09:04 | XMS_ITS | Clinical Summary ---
Author Organization [facility] Address [address] [place] [address] Phone Care Team Providers Care Locksmith Helper Name Role Phone Analy Wilkerson APRN, HOME HEALTH CARE WORKER Unavailable Armen Johns MD Primary Care Provider [phone] Allergies Active Allergy Reactions Criticality Noted Date [...] 1/2 tab. Active Vitamin D3 1.25 MG (80866 UT) Capsule Take 5,000 Units by mouth [...] inhalation every 4 hours as needed. 12/29/19 25 Active Albuterol Sulfate (ProAir RespiClick) 108 (90 Base) MCG/ACT AEROSOL POWDER, BREATH ACTIVATED 2 Puffs. 10/24/20 Active gabapentin (NEURONTIN) 600 MG Tablet Take 1,200 mg by mouth 3 times daily. 12/27/19 25 Active HYDROcodone-acet aminophen (NORCO) 10-325 MG Tablet Take 1 Tablet by mouth every 8 hours as needed for Moderate or more severe pain. Active ondansetron (ZOFRAN-ODT) 4 MG TABLET DISPERSIBLE DISSOLVE 1 TABLET IN MOUTH EVERY 6 HOURS NEEDED FOR NAUSEA AND VOMITING 01/28/20 25 Active Empagliflozin (Jardiance) 10 MG Tablet Take 10 mg by mouth daily. Active fluconazole (DIFLUCAN) 150 MG Tablet Take one tablet today then one tablet in 72 hours. 2 Tablet 02/05/20 25 Active predniSONE (DELTASONE) 10 MG Tablet Take 3 tabs by mouth everyday for 3 days, then take 2 tabs by mouth every day for 2 days, then 1 tab orally x 1 day and done. 14 Tablet 01/19/20 25 025 Discontinu ed(Therapy completed) levoFLOXacin (Levaquin) 750 MG TabletIndication s:Lower respiratory infection (e.g., bronchitis, pneumonia, pneumonitis, pulmonitis) Take 1 Tablet by mouth daily for 5 days. 5 Tablet 06/11/20 25 025 predniSONE (DELTASONE) 20 MG TabletIndication s:Moderate persistent asthma with acute exacerbation Take 2 Tablets by mouth daily for 5 days. 10 Tablet 06/11/20 25 025 Active Problems Problem Noted Date Diagnosed [...] Department Care Team Description 06/12/2025 Results Follow-Up [facility] [place] [address] [address] Shad Ospina, PAC XR CHEST 2 VIEWS 06/11/2025 6:00 PM CDT Ancillary [facility] [place] [address] [place] [address] Malini Weathers APRN, KEIRY Acute cough; SOB (shortness of breath) Discharge Disposition: Discharged to home or Selfcare 06/11/2025 5:15 PM CDT Urgent Care Visit [facility] [place] [address] [place] [address] Malini Weathers APRN, KEIRY Acute cough (Primary Dx); Lower respiratory infection (e.g., bronchitis, pneumonia, pneumonitis, pulmonitis); SOB (shortness of breath); Nausea; Moderate persistent asthma with acute exacerbation; Type 2 diabetes mellitus with diabetic neuropathy, with long-term current use of insulin (HCC) Discharge Disposition: Discharged to home or Selfcare 06/11/2025 Telephone [facility] [place] [address] [place] [address] Nurse, Branden Kim [facility] xray results 06/11/2025 Travel from Last 3 Months Immunizations Immunization Administration Dates Next Due Influenza Vaccine, Quadrivalent, PF 1111/2021,09/13/2021,03/11/2020,10/30 Influenza, Injectable, Quadrivalent 09/25/2016 Influenza, Seasonal, Injecta ble, Undefined 10/25/2015 Influenza,Split Virus,Trivalent,Injectable,PF 10/27/2013 Pneumococcal Vaccine Adult - 23 Valent ,03/11/2020 Pneumococcal conjugate PCV20 , polysaccharide [id number] conjugate, adjuvant, PF 05/09/2023 TDAP Vaccine 03/12/2019 [...] = 0.6 oz pur e alcohol) Rarely [employer] Utilities Answer Date Recorded In the past 12 months has th e [employer], oil, or water [employer] threatened to shut off services in your [...] any time in the past 12 m [facility], were you homeless or living in a usp (including now)? No 01/12/2025 Comments No Sex [...] 128.4 kg (283 lb) 01/12/2025 8:44 AM EDUCATIONAL INTERPRETER Height 182.9 cm (6') 01/12/2025 8:44 AM EDUCATIONAL INTERPRETER Body Mass Index 38.38 01/12/2025 8:44 AM EDUCATIONAL INTERPRETER Plan of Treatment Health Maintenance Due Date [...] (COMPREHENSIVE METABOLIC PANEL) STAT 01/11/2025 10:29 PM EDUCATIONAL INTERPRETER HEMOGLOBIN A1C W/ ESTIMATED GLUCOSE STAT 01/11/2025 10:29 PM EDUCATIONAL INTERPRETER STOOL, OCCULT BLOOD, DIAGNOSTIC, VIA GUAIAC Routine [...] Flex Young M.D. KR: KR Report ID: [id number] Reading Location: [id number] Procedure Note Flex Young MD - 06/11/2025 [...] Flex Young M.D. KR: LACI Report ID: [id number] Reading Location: [id number] IMPRESSION: No acute cardiopulmonary abnormality. Stable large hiatal hernia. Malini Weathers APRN, CNP IMG DIAGNOSTIC ORDER NICKI Final Result * POC SARS-COV-2 BY MOLECULAR (06/11/2025 5:47 PM CDT) SARSCOV2 Negative Negative, INVALID PROCEDURE CONTROL Valid 06/11/2025 5:47 PM CDT us Malini Weathers APRN, CNP POINT OF CARE TESTIN G (MANUAL) Final Result * (ABNORMAL) HEMOGLOBIN A1C W/ ESTIMATED GLUCOSE (01/11/2025 10:29 PM EDUCATIONAL INTERPRETER) HGB-A1C 11.8(H) 4.0 - 6.0 % 01/12/2025 4:45 AM EDUCATIONAL INTERPRETER [facility] Est Average Glucose 292.0 mg/dL 01/12/2025 4:45 AM EDUCATIONAL INTERPRETER [facility] Blood Venipuncture / Unknown 01/11/2025 10:29 PM EDUCATIONAL INTERPRETER 01/11/2025 10:45 PM EDUCATIONAL INTERPRETER Narrative [facility] - 01/12/2025 4:45 AM EDUCATIONAL INTERPRETER HEMOGLOBIN A1C: DIABETIC PATIENTS: WELL-CONTROLLED: 6.2 - 7.0 INTERMEDIATE WELL-CONTROLLED: 7.0 - 9.0 POORLY-CONTROLLED: >9.0 Specimens containing greater than 5% of Hemoglobin F may result in lower than expected % HbA1C results. us Katy Otero APRN, CNP CHEMISTRY ORDERABLES Yue l Result [facility] [address] [place] [address] * (ABNORMAL) CMP (COMPREHENSIVE METABOLIC PANEL) (01/11/2025 10:29 PM [facility]) SODIUM 138 136 - 145 mmol/L 01/11/2025 11:07 PM [facility] POTASSIUM 4.7 3.5 - 5.1 mmol/L 01/11/2025 11:07 PM [facility] Comment: Specimen is hemolyzed. In vitro hemolysis could affect results. Clinical correlation advised. CHLORIDE 106 98 - 107 mmol/L 01/11/2025 11:07 PM [facility] CO2, VENOUS 20(L) 22 - 30 mmol/L 01/11/2025 11:07 PM [facility] ANION GAP 16.7 <18.0 mmol/L 01/11/2025 11:07 PM [facility] GLUCOSE 318(H) 70 - 99 mg/dL 01/11/2025 11:07 PM [facility] BUN 21(H) 10 - 20 mg/dL 01/11/2025 11:07 PM [facility] CREATININE, BLOOD 1.83(H) 0.60 - 1.00 mg/dL 01/11/2025 11:07 PM [facility] BUN/CREATININE RATIO 11(L) 12 - 20 ratio 01/11/2025 11:07 PM [facility] TOTAL PROTEIN 8.2(H) 6.0 - 8.0 g/dL 01/11/2025 11:07 PM [facility] Comment: Specimen is hemolyzed. In vitro hemolysis could affect results. Clinical correlation advised. ALBUMIN 3.5 3.5 - 5.0 g/dL 01/11/2025 11:07 PM [facility] A/G RATIO 0.7(L) 1.0 - 2.2 01/11/2025 11:07 PM [facility] CALCIUM 8.9 8.7 - 10.5 mg/dL 01/11/2025 11:07 PM [facility] T BILI 0.6 0.2 - 1.2 mg/dL 01/11/2025 11:07 PM EDUCATIONAL INTERPRETER [facility] SGOT (AST) 37 <43 U/L 01/11/2025 11:07 PM [facility] Comment: Specimen is hemolyzed. In vitro hemolysis could affect results. Clinical correlation advised. SGPT (ALT) 17 <56 U/L 01/11/2025 11:07 PM [facility] ALKALINE PHOSPHATASE 66 40 - 150 U/L 01/11/2025 11:07 PM EDUCATIONAL INTERPRETER [facility] GFR, ESTIMATED 31(L) >=60 01/11/2025 11:07 PM [facility] Comment: Creatinine Clearance is the preferred criteria for selecting drug dose adjustments in renally impaired patients. The GFR is provided as additional pertinent clinical information. GFR is reported in mL/min/1.73 sq m. Calculation based on the Chronic Kidney Disease Epidemiology Collaboration (CKD- EPI) equation refit without adjustment for race. GFR, EST. 34(L) >=60 025 11:07 PM EDUCATIONAL INTERPRETER [facility] GFR, EST. NONAFRICAN 28(L) >=60 01/11/2025 11:07 PM [facility] Blood Venipuncture / Unknown 01/11/2025 10:29 PM EDUCATIONAL INTERPRETER 01/11/2025 10:45 PM EDUCATIONAL INTERPRETER us Shady Irby MD CHEMISTRY ORDERABLES Final Result [facility] [address] [place] [address] * STOOL, OCCULT BLOOD, DIAGNOSTIC (03/11/2020 12:35 AM CDT) OCCULT BLOOD DIAG Negative Negative 03/11/2020 1:11 AM CDT [facility] Stool specimen (specimen) STOOL SPECIMEN / Unknown Non-Phlebotomy Collection / Unknown 03/11/2020 12:35 AM CDT 03/11/2020 12:41 AM CDT us Alyssia Leyva APRN, CNP BODY FLUIDS & STOOL S ORDERABLES Final Result [facility] [address] [place] [address] * BRIGITTE DIAG BILATERAL DIGITAL W CAD [...] exams dated: 11/03/2006, 11/04/2013, 10/27/2006, and 10/27/2006 [facility]. BREAST TISSUE:There are scattered fibroglandular densities in [...] signed by: Sintia Duarte M.D. ll/:04/30/2018 11:30:16 Roughener: Marcia Resendiz (R), [facility] letter sent: Normal Exam Reading location: [facility] OVERALL STUDY BIRADS: 2 Benign Procedure Note Sintia Duarte MD - 05/01/2018 - BRIGITTE DIAG BILATERAL DIGITAL W CAD W LANDEN - BRIGITTE US BREAST LIMITED LT BILATERAL DIGITAL DIAGNOSTIC MAMMOGRAM 3D/2D WITH CAD AND TARGETED LEFT ULTRASOUND WITH MEDIOLATERAL OBLIQUE CRANIOCAUDAL: 04/30/2018 The study was acquired using digital technology and interpreted from soft copy. Current study was also evaluated with Cellumen version 7.2. CLINICAL: Diagnostic study. Patient reports [...] exams dated: 11/03/2006, 11/04/2013, 10/27/2006, and 10/27/2006 [facility]. BREAST TISSUE:There are scattered fibroglandular densities in [...] signed by: Sintia Duarte M.D. 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 Care Teams Locksmith Helper Relationship Specialty Start Date End Date Armen Johns MD [address] [place] [address] PCP - General Family Medicine 05/26/22 Analy Wilkerson, ASPHALT PAVER OPERATOR, HOME HEALTH CARE WORKER Nurse Practitioner Advanced Practice Nurse 07/25/16
--- OUTSIDE RECORDS SUMMARY | 2025-07-05 09:04 | XMS_ITS | Encounter Summary ---
Author Organization [facility] Address [address] [place] [address] Phone Care Team Providers Care Contracts Paralegal Name Role Phone Analy Wilkerson LYNDA, BUILDING ENERGY CONSULTANT Unavailable Armen Johns MD Primary Care Provider [phone] Encounter Details Date Type Department Care Team (Late st Contact Info) Description 06/12/2025 Results Follow-Up [facility] - [place] [address] [place] [address] Shad Ospina, AKHIL [address] [place], [place] [id number] XR CHEST 2 VIEWS Social History Tobacco Use Types Packs/Day Years Used Date Smoking Tobacco: Never Smokeless Tobacco: Never Alcohol Use Standard Drinks/Week Comments Not Currently 0 (1 standard drink = 0.6 oz pur e alcohol) Rarely [facility] Utilities Answer Date Recorded In [...] any time in the past 12 m [facility], were you homeless or living in a [...] documented as of this encounter Care Teams Contracts Paralegal Relationship Specialty Start Date End Date Armen Johns MD [address] [place] [id number] PCP - General Family Medicine 05/26/22 Analy Wilkerson APRN, BUILDING ENERGY CONSULTANT Nurse Practitioner Advanced Practice Nurse 07/25/16 documented as of this encounter
--- OUTSIDE RECORDS SUMMARY | 2025-07-05 09:04 | XMS_ITS | Clinical Summary ---
Author Organization [facility] Address [address] [place] [address] Care Team Providers Care Clothes Drier Assembler Name Role Phone Nena Garcia NP Unavailable Armen Johns MD Primary Care Provider [phone] Allergies Active Allergy Reactions Criticality Noted Date [...] Active blood-glucose meter (ONETOUCH ULTRA2 METER) [facility] [place]ED TO TEST BLOOD SUGAR [...] neuropathy, without long-term current use of insulin ([facility]) 03/17/2019 Assessment & Plan (03/17/2019 4:18 PM CDT): 58-year-old woman with history of type 2 diabetes admitted March 12, 2019 after partial traumatic amputation right foot now post [id number] amputation. 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 Not on file Not on file Obstetrics History Last Filed Vital Signs Vital Sign Reading Time Taken Comments Blood Pressure 122/74 10/16/2024 6:48 PM DIECAST MACHINE OPERATOR Pulse 70 10/16/2024 6:48 PM DIECAST MACHINE OPERATOR Temperature 36.7 C (98.1 F) 10/16/2024 6:48 PM DIECAST MACHINE OPERATOR Respiratory Rate 17 10/16/2024 6:48 PM DIECAST MACHINE OPERATOR Oxygen Saturation 98% 10/16/2024 6:48 PM DIECAST MACHINE OPERATOR Inhaled Oxygen Concentration - - Weight 136.1 kg (300 lb) 10/16/2024 6:48 PM DIECAST MACHINE OPERATOR per patient Height 182.9 cm (6') 10/16/2024 6:48 PM DIECAST MACHINE OPERATOR Body Mass Index 40.69 10/16/2024 6:48 PM DIECAST MACHINE OPERATOR Plan of Treatment Health Maintenance Due Date [...] - PCV) 03/11/2021 03/11/2020 Influenza Vaccine (#1) 2025 0, 10/30/2017, 09/25/2016, Additional history exists DTaP/Tdap/Td Vaccine (2 - Td or Tdap) 03/12/2029 03/12/2019 Procedures Procedure Name Priority Date/Time Associated Diagnosis Comments LIPID PANEL Routine 03/13/2019 1:03 AM CDT HEMOGLOBIN A1C STAT 03/12/2019 2:48 PM CDT DIGITAL MAMMOGRAPHY Routine 11/04/2013 2 :19 PM DIECAST MACHINE OPERATOR from Last 3 Months or Most Recently Relevant to Health Maintenance Results * Lipid panel (03/13/2019 1:03 AM CDT) Cholesterol 182 30 - 199 mg/dL [facility] Comment: Interpretive Data Ages < or [...] on 2018. Triglycerides 78 <=149 mg/dL [facility] Comment: Interpretive Data Ages < or [...] on 2018. HDL 45 >=40 mg/dL [facility] Comment: Interpretive Data Ages < or [...] 2018. LDL, calculated 121 <=129 mg/dL [facility] Comment: Interpretive Data Ages < or [...] on 2018. Non-HDL Cholesterol 136 mg/dL [facility] Comment: Interpretive Data Ages < or [...] last revised on 2018. Chol/HDL ratio 4 [facility] Blood specimen (specimen) 03/13/2019 1:03 AM CDT 03/13/2019 12:42 PM CDT Narrative [facility] - 03/14/2019 2:21 AM CDT [place] MD LAB BLOOD ORDERABL ES Final Result Performing Organization Address [facility] de Phone Number [facility] Department [place] [address] * (ABNORMAL) Hemoglobin A1c (03/12/2019 2:48 PM CDT) Hgb A1C 9.3(H) 4.0 - 5.6 % [facility] Estimated Average Glucose 220 mg/dL [facility] Comment: The ADA recommends reporting an estimated Average Glucose (eAG) with all Hemoglobin A1c results using the equation derived from a study of 507 normal and diabetic adults. Minority populations were underrepresented and children were not included. (Diabetes Care 31:5119-2921, 2008). The eAG is not equivalent to a fasting glucose. Blood specimen (specimen) 03/12/2019 2:48 PM CDT 03/12/2019 3:01 PM CDT Narrative [facility] - 03/12/2019 9:09 PM CDT us Jhonny Headley MD LAB BLOOD ORDERABLES Final R esult Performing Organization Address [facility] Co de Phone Number [facility] Department [place] [address] * DIGITAL MAMMOGRAPHY (11/04/2013 2:19 PM DIECAST MACHINE OPERATOR) Anatomical Region Laterality Modality Breast Mammography 11/04/2013 2:19 PM DIECAST MACHINE OPERATOR Narrative 11/04/2013 7:55 PM DIECAST MACHINE OPERATOR Screening Mamm Bi Acc#: [id number] DATE OF EXAM: Nov 04 2013 CLINICAL [...] Joan - 03/17/2017 Screening Mamm Bi Acc#: [id number] DATE OF EXAM: Nov 04 2013 CLINICAL [...] was utilized in interpretation of these images. [facility] reminder system to [...] KAVON COSBY Attending DR: KAVON COSBY us [facility] Provider MD SAINZ MAMMO PROCEDURES Yue l Result from Last 3 Months or Most Recently Relevant to Health Maintenance [place] [address] [facility] [place] [id number] Advance Directives For more information, please contact: [phone] * Full Code (Latest Code Status on File) Date Activated Date Inactivated Comments 03/12/2019 4:27 PM 03/17/2019 10:36 PM Care Teams Clothes Drier Assembler Relationship Specialty [place] [address] [address] PCP - General Family Practice 05/27/22 [place] [address] [address] 03/12/19
[2025-07-05 09:15] LABS: Estimated Glomerular Filt Rate 30
== END 2025-07-05 08:56 | disposition home or self-care (01) ==
PROVIDERS: PCP Nurse Practitioner Adult Health; Visit Provider Surgery
DX: K76.9 Liver disease, unspecified (principal); K44.9 Diaphragmatic hernia without obstruction or gangrene; K80.20 Calculus of gallbladder without cholecystitis without obstruction
CPT/HCPCS: 74178; Q9967

== ENCOUNTER 2025-07-13 08:11 | Outpatient (CLI) | payer OTHER, SELFPAY ==
--- OUTSIDE RECORDS SUMMARY | 2025-07-13 08:22 | XMS_ITS | Clinical Summary ---
Author Organization [facility] Address [address] [place] [address] Care Team Providers Care Car Rental Agent Name Role Phone Nena Garcia NP Unavailable [phone] Armen Johns MD Primary Care Provider [phone] Allergies Active Allergy Reactions Criticality Noted Date [...] Active blood-glucose meter (ONETOUCH ULTRA2 METER[place] [facility] [place]ED TO TEST BLOOD SUGAR [...] neuropathy, without long-term current use of insulin ([facility]) 03/17/2019 Assessment & Plan (03/17/2019 4:18 PM CDT): 58-year-old woman with history of type 2 diabetes admitted March 12, 2019 after partial traumatic amputation right foot now post oerba-xkb-ehjh amputation. 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 Not on file Not on file Obstetrics History Last Filed Vital Signs Vital Sign Reading Time Taken Comments Blood Pressure 122/74 10/16/2024 6:48 PM COKE CRUSHER OPERATOR Pulse 70 10/16/2024 6:48 PM COKE CRUSHER OPERATOR Temperature 36.7 C (98.1 F) 10/16/2024 6:48 PM COKE CRUSHER OPERATOR Respiratory Rate 17 10/16/2024 6:48 PM COKE CRUSHER OPERATOR Oxygen Saturation 98% 10/16/2024 6:48 PM COKE CRUSHER OPERATOR Inhaled Oxygen Concentration - - Weight 136.1 kg (300 lb) 10/16/2024 6:48 PM COKE CRUSHER OPERATOR per patient Height 182.9 cm (6') 10/16/2024 6:48 PM COKE CRUSHER OPERATOR Body Mass Index 40.69 10/16/2024 6:48 PM COKE CRUSHER OPERATOR Plan of Treatment Health Maintenance Due [...] DIGITAL MAMMOGRAPHY Routine 11/04/2013 2 :19 PM COKE CRUSHER OPERATOR from Last 3 Months or Most Recently Relevant to Health Maintenance Results * Lipid panel (03/13/2019 1:03 AM CDT) Cholesterol 182 30 - 199 mg/dL [facility] Comment: Interpretive Data Ages < or [...] on 2018. Triglycerides 78 <=149 mg/dL [facility] Comment: Interpretive Data Ages < or [...] on 2018. HDL 45 >=40 mg/dL [facility] Comment: Interpretive Data Ages < or [...] 2018. LDL, calculated 121 <=129 mg/dL [facility] Comment: Interpretive Data Ages < or [...] on 2018. Non-HDL Cholesterol 136 mg/dL [facility] Comment: Interpretive Data Ages < or [...] last revised on 2018. Chol/HDL ratio 4 [facility] Blood specimen (specimen) 03/13/2019 1:03 AM CDT 03/13/2019 12:42 PM CDT Narrative [facility] - 03/14/2019 2:21 AM CDT Walker Lake MD LAB BLOOD ORDERABL ES Final Result Performing Organization Address [facility] de Phone Number [facility] Department [place] [address] * (ABNORMAL) Hemoglobin A1c (03/12/2019 2:48 PM CDT) Hgb A1C 9.3(H) 4.0 - 5.6 % [facility] Estimated Average Glucose 220 mg/dL [facility] Comment: The ADA recommends reporting an estimated Average Glucose (eAG) with all Hemoglobin A1c results using the equation derived from a study of 507 normal and diabetic adults. Minority populations were underrepresented and children were not included. (Diabetes Care 31:9731-1951, 2008). The eAG is not equivalent to a fasting glucose. Blood specimen (specimen) 03/12/2019 2:48 PM CDT 03/12/2019 3:01 PM CDT Narrative [facility] - 03/12/2019 9:09 PM CDT us Jhonny Headley MD LAB BLOOD ORDERABLES Final R esult Performing Organization Address [facility] Co de Phone Number [facility] Department [place] [address] * DIGITAL MAMMOGRAPHY (11/04/2013 2:19 PM COKE CRUSHER OPERATOR) Anatomical Region Laterality Modality Breast Mammography 11/04/2013 2:19 PM COKE CRUSHER OPERATOR Narrative 11/04/2013 7:55 PM COKE CRUSHER OPERATOR Screening Mamm Bi Acc#: [id number] DATE OF EXAM: Nov 04 2013 CLINICAL [...] Joan - 03/17/2017 Screening Mamm Bi Acc#: [id number] DATE OF EXAM: Nov 04 2013 CLINICAL [...] was utilized in interpretation of these images. [facility] utilizes a reminder system to notify [...] KAVON COSBY Attending DR: KAVON COSBY us [facility] Provider MD SAINZ MAMMO PROCEDURES Yue l Result from Last 3 Months or Most Recently Relevant to Health Maintenance Insurance [employer] [facility] [place] [id number] Advance Directives For more information, please contact: [phone] * Full Code (Latest Code Status on File) Date Activated Date Inactivated Comments 03/12/2019 4:27 PM 03/17/2019 10:36 PM Care Teams Car Rental Agent Relationship Specialty [place] [address] [address] PCP - General Family Practice 05/27/22 [place] [address] [address] 03/12/19
--- OUTSIDE RECORDS SUMMARY | 2025-07-13 08:22 | XMS_ITS | Encounter Summary ---
Author Organization [facility] Address [address] [place] [address] Phone Care Team Providers Care Sex Therapist Name Role Phone Analy Wilkerson LYNDA, GLOVE FACTORY SEWER Unavailable Armen Johns MD Primary Care Provider [phone] Encounter Details Date Type Department Care Team (Late st Contact Info) Description 06/12/2025 Results Follow-Up [facility] [place] [address] [place] [address] Shad Ospina, AKHIL [address] [place] [address] XR CHEST 2 VIEWS Social History Tobacco Use Types Packs/Day Years Used Date Smoking Tobacco: Never Smokeless Tobacco: Never Alcohol Use Standard Drinks/Week Comments Not Currently 0 (1 standard drink = 0.6 oz pur e alcohol) Rarely [facility] Utilities Answer Date Recorded In [...] any time in the past 12 m [facility], were you homeless or living in a detention (including now)? No 01/12/2025 Comments No Sex [...] documented as of this encounter Care Teams Sex Therapist Relationship Specialty Start Date End Date Armen Johns MD PCP - General Family Medicine 05/26/22 Analy Wilkerson, HEAD CAGER, GLOVE FACTORY SEWER Nurse Practitioner Advanced Practice Nurse 07/25/16 documented as of this encounter
--- OUTSIDE RECORDS SUMMARY | 2025-07-13 08:23 | XMS_ITS | Clinical Summary ---
Author Organization [facility] Address [address] [place] [address] Phone Care Team Providers Care Job Hand Name Role Phone Analy Wilkerson APRN, GROOVER AND STRIPER OPERATOR Unavailable Armen Johns MD Primary Care Provider [phone] Allergies Active Allergy Reactions Criticality Noted Date [...] 1/2 tab. Active Vitamin D3 1.25 MG (18723 UT) Capsule Take 5,000 Units by mouth [...] Team Description 06/12/2025 Results Follow-Up [facility] [address] [address] Shad Ospina, PAC XR CHEST 2 VIEWS 06/11/2025 6:00 PM CDT Ancillary Procedure [facility] Diagnostic Radiology - [place] [address] [place] [id number] Malini Weathers APRN, KEIRY Acute cough; SOB (shortness of breath) Discharge Disposition: Discharged to home or Selfcare 06/11/2025 5:15 PM CDT Urgent Care Visit [facility] [address] [place] [phone] Malini Weathers APRN, KEIRY Acute cough (Primary Dx); Lower respiratory infection (e.g., bronchitis, pneumonia, pneumonitis, pulmonitis); SOB (shortness of breath); Nausea; Moderate persistent asthma with acute exacerbation; Type 2 diabetes mellitus with diabetic neuropathy, with long-term current use of insulin ([facility]) Discharge Disposition: Discharged to home or Selfcare 06/11/2025 [facility] [address] [place] [address] Nurse, Branden [facility] xray results 06/11/2025 Travel from Last 3 Months Immunizations Immunization Administration Dates Next Due Influenza Vaccine, Quadrivalent, PF 11/2021,09/13/2021,03/11/2020,10/30 Influenza, Injectable, Quadrivalent 09/25/2016 Influenza, Seasonal, Injecta ble, Undefined 10/25/2015 Influenza,Split Virus,Trivalent,Injectable,PF 10/27/2013 Pneumococcal Vaccine Adult - 23 Valent ,03/11/2020 Pneumococcal conjugate PCV20 , polysaccharide [id number] conjugate, adjuvant, PF 05/09/2023 TDAP Vaccine 03/12/2019 [...] = 0.6 oz pur e alcohol) Rarely [facility] Utilities Answer Date Recorded In the past 12 months has th e [employer], gas, oil, or water [employer] threatened to shut off services in your [...] any time in the past 12 m [facility], were you homeless or living [...] 128.4 kg (283 lb) 01/12/2025 8:44 AM TRANSMISSION INSPECTOR Height 182.9 cm (6') 01/12/2025 8:44 AM TRANSMISSION INSPECTOR Body Mass Index 38.38 01/12/2025 8:44 AM TRANSMISSION INSPECTOR Plan of Treatment Health Maintenance Due Date [...] (COMPREHENSIVE METABOLIC PANEL) STAT 01/11/2025 10:29 PM TRANSMISSION INSPECTOR HEMOGLOBIN A1C W/ ESTIMATED GLUCOSE STAT 01/11/2025 10:29 PM TRANSMISSION INSPECTOR STOOL, OCCULT BLOOD, DIAGNOSTIC, VIA GUAIAC Routine [...] Flex Young M.D. KR: LACI Report ID: [id number] Reading Location: [id number] Procedure Note Flex Young MD - 06/11/2025 [...] Flex Young M.D. KR: LACI Report ID: [id number] Reading Location: [id number] IMPRESSION: No acute cardiopulmonary abnormality. Stable large hiatal hernia. Malini Weathers APRN, CNP IMG DIAGNOSTIC ORDER NICKI Final Result * POC SARS-COV-2 BY MOLECULAR (06/11/2025 5:47 PM CDT) Pathologist [facility] SARSCOV2 Negative Negative, INVALID PROCEDURE CONTROL Valid 06/11/2025 5:47 PM CDT Malini Weathers APRN, CNP POINT OF CARE TESTIN G (MANUAL) Final Result * (ABNORMAL) Hemoglobin A1C (if indicated) (01/11/2025 10:29 PM TRANSMISSION INSPECTOR) [facility] HGB-A1C 11.8(H) 4.0 - 6.0 % 01/12/2025 4:45 AM TRANSMISSION INSPECTOR [facility] Est Average Glucose 292.0 mg/dL 01/12/2025 4:45 AM TRANSMISSION INSPECTOR [facility] Blood Venipuncture / Unknown 01/11/2025 10:29 PM TRANSMISSION INSPECTOR 01/11/2025 10:45 PM TRANSMISSION INSPECTOR Narrative [facility] - 01/12/2025 4:45 AM TRANSMISSION INSPECTOR HEMOGLOBIN A1C: DIABETIC PATIENTS: WELL-CONTROLLED: 6.2 - 7.0 INTERMEDIATE WELL-CONTROLLED: 7.0 - 9.0 POORLY-CONTROLLED: >9.0 Specimens containing greater than 5% of Hemoglobin F may result in lower than expected % HbA1C results. Katy Otero APRN, CNP CHEMISTRY ORDERABLES Yue l Result [facility] [address] [place] [address] * (ABNORMAL) CMP (01/11/2025 10:29 PM TRANSMISSION INSPECTOR) [facility] SODIUM 138 136 - 145 mmol/L 01/11/2025 11:07 PM TRANSMISSION INSPECTOR [facility] POTASSIUM 4.7 3.5 - 5.1 mmol/L 01/11/2025 11:07 PM [facility] Comment: Specimen is hemolyzed. In vitro hemolysis could affect results. Clinical correlation advised. CHLORIDE 106 98 - 107 mmol/L 01/11/2025 11:07 PM [facility] CO2, VENOUS 20(L) 22 - 30 mmol/L 01/11/2025 11:07 PM [facility] ANION GAP 16.7 <18.0 mmol/L 01/11/2025 11:07 PM [facility] GLUCOSE 318(H) 70 - 99 mg/dL 01/11/2025 11:07 PM [facility] BUN 21(H) 10 - 20 mg/dL 01/11/2025 11:07 PM [facility] CREATININE, BLOOD 1.83(H) 0.60 - 1.00 mg/dL 01/11/2025 11:07 PM [facility] BUN/CREATININE RATIO 11(L) 12 - 20 ratio 01/11/2025 11:07 PM [facility] TOTAL PROTEIN 8.2(H) 6.0 - 8.0 g/dL 01/11/2025 11:07 PM [facility] Comment: Specimen is hemolyzed. In vitro hemolysis could affect results. Clinical correlation advised. ALBUMIN 3.5 3.5 - 5.0 g/dL 01/11/2025 11:07 PM [facility] A/G RATIO 0.7(L) 1.0 - 2.2 01/11/2025 11:07 PM [facility] CALCIUM 8.9 8.7 - 10.5 mg/dL 01/11/2025 11:07 PM [facility] T BILI 0.6 0.2 - 1.2 mg/dL 01/11/2025 11:07 PM [facility] SGOT (AST) 37 <43 U/L 01/11/2025 11:07 PM [facility] Comment: Specimen is hemolyzed. In vitro hemolysis could affect results. Clinical correlation advised. SGPT (ALT) 17 <56 U/L 01/11/2025 11:07 PM TRANSMISSION INSPECTOR [facility] ALKALINE PHOSPHATASE 66 40 - 150 U/L 01/11/2025 11:07 PM TRANSMISSION INSPECTOR [facility] GFR, ESTIMATED 31(L) >=60 01/11/2025 11:07 PM TRANSMISSION INSPECTOR [facility] Comment: Creatinine Clearance is the preferred criteria for selecting drug dose adjustments in renally impaired patients. The GFR is provided as additional pertinent clinical information. GFR is reported in mL/min/1.73 sq m. Calculation based on the Chronic Kidney Disease Epidemiology Collaboration (CKD- EPI) equation refit without adjustment for race. GFR, EST. 34(L) >=60 025 11:07 PM TRANSMISSION INSPECTOR [facility] GFR, EST. NONAFRICAN 28(L) >=60 01/11/2025 11:07 PM TRANSMISSION INSPECTOR [facility] Blood Venipuncture / Unknown 01/11/2025 10:29 PM TRANSMISSION INSPECTOR 01/11/2025 10:45 PM TRANSMISSION INSPECTOR us Shady Irby MD CHEMISTRY ORDERABLES Final Result [facility] [address] [place] [address] * Stool, Occult Blood, Diagnostic (03/11/2020 12:35 AM CDT) OCCULT BLOOD DIAG Negative Negative 03/11/2020 1:11 AM CDT [facility] Stool specimen (specimen) STOOL SPECIMEN / Unknown Non-Phlebotomy Collection / Unknown 03/11/2020 12:35 AM CDT 03/11/2020 12:41 AM CDT us Alyssia Leyva APRN, GROOVER AND STRIPER OPERATOR BODY FLUIDS & STOOL S ORDERABLES Final Result [facility] [address] [place] [address] * BRIGITTE DIAG BILATERAL DIGITAL W CAD [...] exams dated: 11/03/2006, 11/04/2013, 10/27/2006, and 10/27/2006 [facility]. BREAST TISSUE:There are scattered fibroglandular densities in [...] signed by: Sintia Duarte M.D. ll/:04/30/2018 11:30:16 Immigration Case Manager: Marcia Resendiz (Chandu), [facility] letter sent: Normal Exam Reading location: [facility] OVERALL STUDY BIRADS: 2 Benign Procedure [...] exams dated: 11/03/2006, 11/04/2013, 10/27/2006, and 10/27/2006 [facility]. BREAST TISSUE:There are scattered fibroglandular densities in [...] signed by: Sintia Duarte M.D. 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 Care Teams Job Hand Relationship Specialty Start Date End Date Armen Johns MD PCP - General Family Medicine 05/26/22 Analy Wilkerson APRN, GROOVER AND STRIPER OPERATOR Nurse Practitioner Advanced Practice Nurse 07/25/16
[2025-07-13 19:47] LABS: Anion Gap 10 mmol/L (4-12); Blood Urea Nitrogen 26 mg/dL (7-17); Calcium 13.3 mg/dL (8.4-10.2); Carbon Dioxide 30 mmol/L (22-30); Chloride 101 mmol/L (98-107); Estimated Glomerular Filt Rate 23; Glucose 143 mg/dL (65-110); Potassium 4.4 mmol/L (3.4-5.0); Sodium 141 mmol/L (137-145)
[2025-07-13 19:48] LABS: Calcium 13.4 mg/dL (8.4-10.2); Estimated Glomerular Filt Rate 23
== END 2025-07-13 08:12 | disposition home or self-care (01) ==
LOC: ANHBWCLAB 08:12
PROVIDERS: Surgery; PCP Nurse Practitioner Adult Health; Visit Provider Nurse Practitioner Adult Health
DX: R89.9 Unspecified abnormal finding in specimens from other organs, systems and tissues (principal); E11.65 Type 2 diabetes mellitus with hyperglycemia; E55.9 Vitamin D deficiency, unspecified
CPT/HCPCS: 36415; 80048; 82306; 82310; 82565

== ENCOUNTER 2025-07-13 21:19 | Inpatient (IN) | payer OTHER, SELFPAY ==
--- NOTE | ~2025-07-13 | XR_ITS ---
Clinical history:Hypercalcemia. EXAM:X-ray chest one view portable TECHNIQUE:A single portable AP upright frontal image of the chest was obtained. Comparisons:Chest x-ray 01/26/2025;CT abdomen and pelvis 07/05/2025. FINDINGS: Grossly stable hiatal hernia. No pneumothorax. No pleural effusion. No free air in the diaphragm. Cardiomediastinal silhouette is mildly enlarged, unchanged.Small opacities in the lower lungs. IMPRESSION: 1. Small opacities in the lower lungs which represent atelectasis or infiltrates. Reviewed, dictated and finalized at location Q. IMPRESSION: 1. Small opacities in the lower lungs which represent atelectasis or infiltrate s.
--- NOTE | ~2025-07-13 | US_ITS ---
US renal BI 07/15/2025 18:01 Procedure: Realtime transabdominal ultrasound of the kidneys and bladder. Indication: Acute renal insufficiency Comparison: No prior studies for comparison. Findings: Renal echotexture is normal bilaterally without hydronephrosis, contour deforming mass or renal calculus. The right kidney measures 10.4 cm and left kidney measures 12 cm. Bladder within normal limits. Impression: 1: Unremarkable renal ultrasound. No stones, masses or hydronephrosis. Reviewed, dictated and finalized at location O. Impression: 1: Unremarkable renal ultrasound. No stones, masses or hydronephrosis.
--- OUTSIDE RECORDS SUMMARY | 2025-07-13 21:21 | XMS_ITS | Clinical Summary ---
Author Organization [facility] Address [address] [place] [address] Care Team Providers Care Quality Assurance Engineer Name Role Phone Nena Garcia NP Unavailable [phone] Armen Johns MD Primary Care Provider [phone] Allergies Active Allergy Reactions Criticality Noted Date [...] Active blood-glucose meter (ONETOUCH ULTRA2 METER[place] [facility] [place]ED TO TEST BLOOD SUGAR 6 [...] neuropathy, without long-term current use of insulin ([facility]) 03/17/2019 Assessment & Plan (03/17/2019 4:18 PM CDT): 58-year-old woman with history of type 2 diabetes admitted March 12, 2019 after partial traumatic amputation right foot now post ygkhg-abm-hebt amputation. 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 Not on file Not on file Obstetrics History Last Filed Vital Signs Vital Sign Reading Time Taken Comments Blood Pressure 122/74 10/16/2024 6:48 PM LINUX ADMIN ENGINEER Pulse 70 10/16/2024 6:48 PM LINUX ADMIN ENGINEER Temperature 36.7 C (98.1 F) 10/16/2024 6:48 PM LINUX ADMIN ENGINEER Respiratory Rate 17 10/16/2024 6:48 PM LINUX ADMIN ENGINEER Oxygen Saturation 98% 10/16/2024 6:48 PM LINUX ADMIN ENGINEER Inhaled Oxygen Concentration - - Weight 136.1 kg (300 lb) 10/16/2024 6:48 PM LINUX ADMIN ENGINEER per patient Height 182.9 cm (6') 10/16/2024 6:48 PM LINUX ADMIN ENGINEER Body Mass Index 40.69 10/16/2024 6:48 PM LINUX ADMIN ENGINEER Plan of Treatment Health Maintenance Due Date [...] DIGITAL MAMMOGRAPHY Routine 11/04/2013 2 :19 PM LINUX ADMIN ENGINEER from Last 3 Months or Most Recently Relevant to Health Maintenance Results * Lipid panel (03/13/2019 1:03 AM CDT) Cholesterol 182 30 - 199 mg/dL [facility] Comment: Interpretive Data Ages < or [...] on 2018. Triglycerides 78 <=149 mg/dL [facility] Comment: Interpretive Data Ages < or [...] on 2018. HDL 45 >=40 mg/dL [facility] Comment: Interpretive Data Ages < or [...] 2018. LDL, calculated 121 <=129 mg/dL [facility] Comment: Interpretive Data Ages < or [...] on 2018. Non-HDL Cholesterol 136 mg/dL [facility] Comment: Interpretive Data Ages < or [...] last revised on 2018. Chol/HDL ratio 4 [facility] Blood specimen (specimen) 03/13/2019 1:03 AM CDT 03/13/2019 12:42 PM CDT Narrative [facility] - 03/14/2019 2:21 AM CDT Walker Lake MD LAB BLOOD ORDERABL ES Final Result Performing Organization Address [facility] de Phone Number [facility] Department [place] [address] * (ABNORMAL) Hemoglobin A1c (03/12/2019 2:48 PM CDT) Hgb A1C 9.3(H) 4.0 - 5.6 % [facility] Estimated Average Glucose 220 mg/dL [facility] Comment: The ADA recommends reporting an estimated Average Glucose (eAG) with all Hemoglobin A1c results using the equation derived from a study of 507 normal and diabetic adults. Minority populations were underrepresented and children were not included. (Diabetes Care 31:0302-4082, 2008). The eAG is not equivalent to a fasting glucose. Blood specimen (specimen) 03/12/2019 2:48 PM CDT 03/12/2019 3:01 PM CDT Narrative [facility] - 03/12/2019 9:09 PM CDT us Jhonny Headley MD LAB BLOOD ORDERABLES Final R esult Performing Organization Address [facility] Co de Phone Number [facility] Department [place] [address] * DIGITAL MAMMOGRAPHY (11/04/2013 2:19 PM LINUX ADMIN ENGINEER) Anatomical Region Laterality Modality Breast Mammography 11/04/2013 2:19 PM LINUX ADMIN ENGINEER Narrative 11/04/2013 7:55 PM LINUX ADMIN ENGINEER Screening Mamm Bi Acc#: [id number] DATE OF EXAM: Nov 04 2013 CLINICAL [...] Joan - 03/17/2017 Screening Mamm Bi Acc#: [id number] DATE OF EXAM: Nov 04 2013 CLINICAL [...] was utilized in interpretation of these images. [facility] utilizes a reminder system to notify patients [...] KAVON COSBY Attending DR: KAVON COSBY us [facility] Provider MD SAINZ MAMMO PROCEDURES Yue l Result from Last 3 Months or Most Recently Relevant to Health Maintenance Insurance IDPA [facility] PL[facility] [place] [id number] Advance Directives For more information, please contact: [phone] * Full Code (Latest Code Status on File) Date Activated Date Inactivated Comments 03/12/2019 4:27 PM 03/17/2019 10:36 PM Care Teams Quality Assurance Engineer Relationship Specialty [place] [address] [address] PCP - General Family Practice 05/27/22 [place] [address] [address] 03/12/19
--- OUTSIDE RECORDS SUMMARY | 2025-07-13 21:21 | XMS_ITS | Clinical Summary ---
Author Organization [facility] Address [address] [place] [address] Phone Care Team Providers Care Sheep Herder Name Role Phone Analy Wilkerson APRN, GROUP LEADER SEMICONDUCTOR TESTING Unavailable Armen Johns MD Primary Care Provider [phone] Allergies Active Allergy Reactions Criticality Noted Date [...] 1/2 tab. Active Vitamin D3 1.25 MG (34295 UT) Capsule Take 5,000 Units by mouth [...] Department Care Team Description 06/12/2025 Results Follow-Up [facility] [address] [place] [phone] Shad Ospina, PAC XR CHEST 2 VIEWS 06/11/2025 6:00 PM CDT Ancillary Procedure [facility] Diagnostic Radiology - [place] [address] [place] [id number] Malini Weathers APRN, KEIRY Acute cough; SOB (shortness of breath) Discharge Disposition: Discharged to home or Selfcare 06/11/2025 5:15 PM CDT Urgent Care Visit [facility] [address] [place] [phone] Malini Weathers APRN, KEIRY Acute cough (Primary Dx); Lower respiratory infection (e.g., bronchitis, pneumonia, pneumonitis, pulmonitis); SOB (shortness of breath); Nausea; Moderate persistent asthma with acute exacerbation; Type 2 diabetes mellitus with diabetic neuropathy, with long-term current use of insulin ([facility]) Discharge Disposition: Discharged to home or Selfcare 06/11/20[facility] [address] [place] [address] Nurse, [facility] xray results 06/11/2025 Travel from Last 3 Months Immunizations Immunization Administration Dates Next Due Influenza Vaccine, Quadrivalent, PF 11/2021,09/13/2021,03/11/2020,10/30 Influenza, Injectable, Quadrivalent 09/25/2016 Influenza, Seasonal, Injecta ble, Undefined 10/25/2015 Influenza,Split Virus,Trivalent,Injectable,PF 10/27/2013 Pneumococcal Vaccine Adult - 23 Valent ,03/11/2020 Pneumococcal conjugate PCV20 , polysaccharide [id number] conjugate, adjuvant, PF 05/09/2023 TDAP Vaccine 03/12/2019 [...] = 0.6 oz pur e alcohol) Rarely [facility] Utilities Answer Date Recorded In the past 12 months has th e [employer], gas, oil, or water [employer] threatened to shut off services in your [...] any time in the past 12 m [facility], were you homeless or living in a longterm (including now)? No 01/12/2025 Comments No Sex [...] 128.4 kg (283 lb) 01/12/2025 8:44 AM MULTIPLE EFFECT EVAPORATOR OPERATOR Height 182.9 cm (6') 01/12/2025 8:44 AM MULTIPLE EFFECT EVAPORATOR OPERATOR Body Mass Index 38.38 01/12/2025 8:44 AM MULTIPLE EFFECT EVAPORATOR OPERATOR Plan of Treatment Health Maintenance Due [...] (COMPREHENSIVE METABOLIC PANEL) STAT 01/11/2025 10:29 PM MULTIPLE EFFECT EVAPORATOR OPERATOR HEMOGLOBIN A1C W/ ESTIMATED GLUCOSE STAT 01/11/2025 10:29 PM MULTIPLE EFFECT EVAPORATOR OPERATOR STOOL, OCCULT BLOOD, DIAGNOSTIC, VIA GUAIAC Routine [...] Flex Young M.D. KR: LACI Report ID: [id number] Reading Location: [id number] Procedure Note Flex Young MD - 06/11/2025 [...] Flex Young M.D. KR: LACI Report ID: [id number] Reading Location: [id number] IMPRESSION: No acute cardiopulmonary abnormality. Stable large hiatal hernia. Malini Weathers APRN, CNP IMG DIAGNOSTIC ORDER NICKI Final Result * POC SARS-COV-2 BY MOLECULAR (06/11/2025 5:47 PM CDT) Pathologist [facility] SARSCOV2 Negative Negative, INVALID PROCEDURE CONTROL Valid 06/11/2025 5:47 PM CDT Malini Weathers APRN, CNP POINT OF CARE TESTIN G (MANUAL) Final Result * (ABNORMAL) Hemoglobin A1C (if indicated) (01/11/2025 10:29 PM MULTIPLE EFFECT EVAPORATOR OPERATOR) [facility] HGB-A1C 11.8(H) 4.0 - 6.0 % 01/12/2025 4:45 AM MULTIPLE EFFECT EVAPORATOR OPERATOR [facility] Est Average Glucose 292.0 mg/dL 01/12/2025 4:45 AM MULTIPLE EFFECT EVAPORATOR OPERATOR [facility] Blood Venipuncture / Unknown 01/11/2025 10:29 PM MULTIPLE EFFECT EVAPORATOR OPERATOR 01/11/2025 10:45 PM MULTIPLE EFFECT EVAPORATOR OPERATOR Narrative [facility] - 01/12/2025 4:45 AM MULTIPLE EFFECT EVAPORATOR OPERATOR HEMOGLOBIN A1C: DIABETIC PATIENTS: WELL-CONTROLLED: 6.2 - 7.0 INTERMEDIATE WELL-CONTROLLED: 7.0 - 9.0 POORLY-CONTROLLED: >9.0 Specimens containing greater than 5% of Hemoglobin F may result in lower than expected % HbA1C results. Katy Otero APRN, CNP CHEMISTRY ORDERABLES Yue l Result [facility] [address] [place] [address] * (ABNORMAL) CMP (01/11/2025 10:29 PM MULTIPLE EFFECT EVAPORATOR OPERATOR) [facility] SODIUM 138 136 - 145 mmol/L 01/11/2025 11:07 PM MULTIPLE EFFECT EVAPORATOR OPERATOR [facility] POTASSIUM 4.7 3.5 - 5.1 mmol/L 01/11/2025 11:[address] [facility] Comment: Specimen is hemolyzed. In vitro hemolysis could affect results. Clinical correlation advised. CHLORIDE 106 98 - 107 mmol/L 01/11/2025 11:[address] [facility] CO2, VENOUS 20(L) 22 - 30 mmol/L 01/11/2025 11:[address] [facility] ANION GAP 16.7 <18.0 mmol/L 01/11/2025 11:[address] [facility] GLUCOSE 318(H) 70 - 99 mg/dL 01/11/2025 11:[address] [facility] BUN 21(H) 10 - 20 mg/dL 01/11/2025 11:[address] [facility] CREATININE, BLOOD 1.83(H) 0.60 - 1.00 mg/dL 01/11/2025 11:[address] [facility] BUN/CREATININE RATIO 11(L) 12 - 20 ratio 01/11/2025 11:[address] [facility] TOTAL PROTEIN 8.2(H) 6.0 - 8.0 g/dL 01/11/2025 11:[address] [facility] Comment: Specimen is hemolyzed. In vitro hemolysis could affect results. Clinical correlation advised. ALBUMIN 3.5 3.5 - 5.0 g/dL 01/11/2025 11:[address] [facility] A/G RATIO 0.7(L) 1.0 - 2.2 01/11/2025 11:[address] [facility] CALCIUM 8.9 8.7 - 10.5 mg/dL 01/11/2025 11:[address] [facility] T BILI 0.6 0.2 - 1.2 mg/dL 01/11/2025 11:[address] [facility] SGOT (AST) 37 <43 U/L 01/11/2025 11:[address] [facility] Comment: Specimen is hemolyzed. In vitro hemolysis could affect results. Clinical correlation advised. SGPT (ALT) 17 <56 U/L 01/11/2025 11:07 PM MULTIPLE EFFECT EVAPORATOR OPERATOR [facility] ALKALINE PHOSPHATASE 66 40 - 150 U/L 01/11/2025 11:07 PM MULTIPLE EFFECT EVAPORATOR OPERATOR [facility] GFR, ESTIMATED 31(L) >=60 01/11/2025 11:07 PM MULTIPLE EFFECT EVAPORATOR OPERATOR [facility] Comment: Creatinine Clearance is the preferred criteria for selecting drug dose adjustments in renally impaired patients. The GFR is provided as additional pertinent clinical information. GFR is reported in mL/min/1.73 sq m. Calculation based on the Chronic Kidney Disease Epidemiology Collaboration (CKD- EPI) equation refit without adjustment for race. GFR, EST. 34(L) >=60 025 11:07 PM MULTIPLE EFFECT EVAPORATOR OPERATOR [facility] GFR, EST. NONAFRICAN 28(L) >=60 01/11/2025 11:07 PM MULTIPLE EFFECT EVAPORATOR OPERATOR [facility] Blood Venipuncture / Unknown 01/11/2025 10:29 PM MULTIPLE EFFECT EVAPORATOR OPERATOR 01/11/2025 10:45 PM MULTIPLE EFFECT EVAPORATOR OPERATOR us Shady Irby MD CHEMISTRY ORDERABLES Final Result [facility] [address] [place] [address] * Stool, Occult Blood, Diagnostic (03/11/2020 12:35 AM CDT) OCCULT BLOOD DIAG Negative Negative 03/11/2020 1:11 AM CDT [facility] Stool specimen (specimen) STOOL SPECIMEN / Unknown Non-Phlebotomy Collection / Unknown 03/11/2020 12:35 AM CDT 03/11/2020 12:41 AM CDT us Alyssia Leyva APRN, GROUP LEADER SEMICONDUCTOR TESTING BODY FLUIDS & STOOL S ORDERABLES Final Result [facility] [address] [place] [address] * BRIGITTE DIAG BILATERAL DIGITAL W CAD [...] exams dated: 11/03/2006, 11/04/2013, 10/27/2006, and 10/27/2006 [facility]. BREAST TISSUE:There are scattered fibroglandular densities [...] signed by: Sintia Duarte M.D. ll/:04/30/2018 11:30:16 Manager Drug: Marcia Resendiz (Chandu), [facility] letter sent: Normal Exam Reading location: [facility] OVERALL STUDY BIRADS: 2 Benign Procedure Note [...] exams dated: 11/03/2006, 11/04/2013, 10/27/2006, and 10/27/2006 [facility]. BREAST TISSUE:There are scattered fibroglandular densities [...] signed by: Sintia Duarte M.D. ll/:04/30/2018 11:30:16 Manager Drug: Macria Resendiz (R), 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 Care Teams Sheep Herder Relationship Specialty Start Date End Date Armen Johns MD PCP - General Family Medicine 05/26/22 Analy Wilkerson APRN, GROUP LEADER SEMICONDUCTOR TESTING Nurse Practitioner Advanced Practice Nurse 07/25/16
[2025-07-13 21:23] VITALS: BP 124/65; PULSE 82; RESP 20; TEMP 36.8; O2SAT 97
--- NOTE | 2025-07-13 21:36 | ECG_ITS ---
Test Date: 2025-07-13 21:48:08 Measurements Intervals Robinson Rate: 85 P: 13 [place]: 189 QRS: 27 QRSD: 69 T: 30 QT: 327 QTc: 390 Interpretive Statements SINUS RHYTHM LOW QRS VOLTAGE IN PRECORDIAL LEADS BASELINE ARTIFACT- I, II, III, AVR, AVL, AVF, V1-V6 BORDERLINE ECG No previous ECG available for comparison Electronically Signed On 07-14-2025 06:28:00 CDT by Que Ortez D.O.
[2025-07-13 21:39] VITALS: BP 123/70; PULSE 87; RESP 18; O2SAT 98
[2025-07-13 21:46] VITALS: BP 113/73; PULSE 88; RESP 11
[2025-07-13] MEDS: SODIUM CHLORIDE 0.9% IV 1,000 ML 999 ML IV CONT (21:56)
[2025-07-13 21:58] LABS: Hematocrit 43.1 % (37.0-47.0); Hemoglobin 13.3 g/dL (12.0-15.0); Immature Granulocyte Percent A 0.4 % (0-0.5); Lymphocytes Absolute Auto 1.98 K/mm3 (0.9-3.2); Mean Corpuscular HGB Conc 30.9 g/dl (32-36); Mean Corpuscular Hemoglobin 27.5 pg (26-34); Mean Corpuscular Volume 89.0 fl (80-100); Nucleated Red Blood Cells Absolute Auto 0.000 K/mm3 (0.0-0.012); Nucleated Red Blood Cells Perc 0.0 % (0.0-0.2); Platelet Count Result 257 k/mm3 (150-375); Red Blood Count 4.84 M/mm3 (4.2-5.4); White Blood Count 9.5 K/mm3 (4.5-10.0)
[2025-07-13 22:04] LABS: Add Urine Microscopic? YES; Appearance Urine Cloudy (Clear); Glucose Urine UA 3+ mg/dL (Negative); Leukocyte Esterase Ur 2+ LEU/UL (Negative); Nitrate Urine Negative (Negative); Non Pathogenic Casts 0-2; Specific Grav Ur 1.012 (1.001-1.035)
[2025-07-13 22:11] LABS: Alanine Aminotransferase 26 U/L (6-35); Albumin Level 4.3 g/dL (3.5-5.1); Alkaline Phosphatase 70 U/L (38-126); Anion Gap 7 mmol/L (4-12); Aspartate Amino Transferase 29 U/L (14-36); Bilirubin,Total 0.7 mg/dL (0.2-1.3); Blood Urea Nitrogen 27 mg/dL (7-17); Calcium 13.0 mg/dL (8.4-10.2); Carbon Dioxide 29 mmol/L (22-30); Chloride 101 mmol/L (98-107); Estimated CRCL calculation 34 ml/min; Estimated Glomerular Filt Rate 22; Glucose 140 mg/dL (65-110); Lipase 67 U/L (23-300); Potassium 4.2 mmol/L (3.4-5.0); Sodium 137 mmol/L (137-145); Total Protein 8.5 g/dL (6.3-8.2)
[2025-07-13 22:30] VITALS: PULSE 80; RESP 18; O2SAT 96
--- NOTE | 2025-07-13 23:11 | ED.GENADULT ---
HPI - General Adult General Chief complaint: Recheck/Abnormal Lab/Rx Stated complaint: critical calcium level Time Seen by Provider: 07/13/25 21:35 History of Present Illness HPI narrative: Patient is a 62-year-old female who presents to the emergency department this evening after receiving info call from her primary care physician informing her that her calcium level is high and she needs to come to the emergency department for further evaluation. Patient's kidney function was also noted to be abnormal. Patient states that last week she had blood work which showed a mildly elevated calcium level of around 12. Her family doctor wanted to repeat blood work today to recheck it and today was 13.4. Patient states that she has been taking a lot of multivitamins and spironolactone for hair loss and her primary care physician told her to stop taking both of those medications until her calcium level normalizes. Otherwise, patient is denying any symptoms, the only symptom that she can think of was that within the past week her daughter did tell her that she seemed a little bit more forgetful otherwise denies any specific symptoms. Patient states that in December of this year she did develop a severe acute kidney injury and was admitted and after aggressive IV fluids her kidney function normalized. Denies any history of chronic kidney disease. Related Data Home Medications ?Medication ?Instructions ?Recorded ?Confirmed ?Last Taken ?Type magnesium 250 mg tablet 250 mg PO DAILY 02/02/23 07/05/25 Unknown History insulin glargine 100 unit/mL (3 See Rx Instructions subcut .COMPLEX 07/10/25 Unknown History mL) subcutaneous pen (Lantus Solostar U-100 Insulin) Allergies Allergy/AdvReac Type Severity Reaction Status Date / Time amoxicillin Allergy Unknown Unknown Verified 07/13/25 21:26 codeine Allergy Unknown Unknown Verified 07/13/25 21:26 nitrofurantoin Allergy Unknown Unknown Verified 07/13/25 21:26 Sulfa (Sulfonamide Allergy Unknown Unknown Verified 07/13/25 21:26 Antibiotics) ciprofloxacin Allergy Swelling Verified 07/13/25 21:26 of Lip/Tongue/Throat metformin AdvReac cramping, Verified 07/13/25 21:26 nausea, abdominal pain morphine AdvReac Anxiety Verified 07/13/25 21:26 Review of Systems Review of Systems: All systems are reviewed and are negative unless stated otherwise in the HPI. 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 Peripheral polyneuropathy Phantom limb Uncontrolled type 2 diabetes mellitus with hyperglycemia Surgical History Surgical History History of carpal tunnel surgery of left wrist Hx of hysterectomy Family History Family History Mother Diabetes mellitus Heart failure Grandparent Diabetes mellitus Family history of pancreatic cancer Family history of colonic diverticulitis Sibling COPD (chronic obstructive pulmonary disease) Parkinson disease Father Parkinson disease Social History Social History Smoking status: Never smoker Second hand tobacco smoke exposure: No Alcohol intake: never Substance use: never Substance use type: does not use Do You Feel Safe in your Home?: Yes Lack of Transportation: No Lack of Food: Never True Current Housing: I Have Housing Concerned About Future Housing: No Difficulty Paying Gas/Electric Bills: No Difficulty Paying for Meds: No Currently Unemployed: No Education: High School Diploma/GED Difficulty w/ Childcare or Family Care: No Living arrangements: with family Exam Narrative: General: Alert, awake, afebrile, in no acute distress. HEENT: PERRL, no rhinorrhea, no post nasal drip, oropharynx clear. Neck: Trachea midline, no JVD, no lymphadenopathy. Cardiovascular: Regular rate and rhythm, no murmurs, rubs or gallops, no peripheral edema. Respiratory: Clear to auscultation bilaterally, no tachypnea, no wheezing, no rhonchi, no rubs, no respiratory distress. Abdomen: Soft, nontender, nondistended, no rebound, no guarding, no peritoneal signs. Musculoskeletal: No joint swelling or deformity, normal muscle tone. Skin: No rashes or petechia, no signs of infection. Psychiatric: Alert and oriented, normal behavior and judgment for situation. Neurological: Alert and oriented to person, place, and time. Follows all commands. No focal deficits, speech is clear and fluent. Course Vital Signs Vital signs: Vital Signs Temperature 98.2 F 07/13/25 21:23 Pulse Rate 82 07/13/25 21:23 Respiratory Rate 20 07/13/25 21:23 Blood Pressure 124/65 07/13/25 21:23 Pulse Oximetry 97 07/13/25 21:23 Temperature 98.2 F 07/13/25 21:23 Pulse Rate 79 07/13/25 23:31 Respiratory Rate 20 07/13/25 23:31 Blood Pressure 111/69 07/13/25 23:31 Pulse Oximetry 98 07/13/25 23:31 Medical Decision Making MDM Narrative Medical decision making narrative: The patient was evaluated by myself in the emergency department. History is obtained from patient who is an independent historian and physical exam was performed. External medical records were reviewed at this time. IV was established and pertinent tests were ordered. Patient was administered 1 L IV fluid bolus with normal saline and continued on maintenance with normal saline at a rate of 200 cc/hour. EKG was obtained which revealed sinus rhythm rate of 85 beats per minute. No ST changes, T wave inversions or evidence of acute ischemia. EKG was independently interpreted by me and is currently pending official cardiology read. Laboratory results obtained revealing hypercalcemia with the calcium level of 13.0. Ionized calcium currently pending. Creatinine 2.2 which is higher than patient's creatinine which is normally within the normal range. Urinalysis revealed 2+ leuk esterases to 20-100 white blood cells. Patient was started on Rocephin 1 g for her UTI. Differential diagnosis considerations include acute kidney injury, dehydration, electrolyte derangements, hypercalcemia of malignancy. Comorbidities impacting this visit include none. I have evaluated and discussed social determinants of health with the patient that could potentially impact subsequent diagnosis and treatment plans. On repeat assessment of the patient, reevaluation revealed that the patient is doing well and is in no acute distress. Patient symptoms have improved since she arrived to our emergency department. Repeat vital signs were all reviewed and noted to be stable. Differential diagnosis and treatment plan were discussed with the patient at bedside. Patient agrees with discussion and after shared medical decision making agrees with admission. All questions were answered to the patient's satisfaction. Case was discussed with the on-call hospitalist HONG Kumari who accepted admission. Vital Signs Vital Signs: Vital Signs Temperature 98.2 F 07/13/25 21:23 Pulse Rate 82 07/13/25 21:23 Respiratory Rate 20 07/13/25 21:23 Blood Pressure 124/65 07/13/25 21:23 Pulse Oximetry 97 07/13/25 21:23 Temperature 98.2 F 07/13/25 21:23 Pulse Rate 79 07/13/25 23:31 Respiratory Rate 20 07/13/25 23:31 Blood Pressure 111/69 07/13/25 23:31 Pulse Oximetry 98 07/13/25 23:31 Lab Data 07/13/25 21:48 07/13/25 21:48 Labs: Lab Results 07/13/25 07/13/25 07/13/25 Range/Units 21:48 21:48 21:48 WBC 9.5 (4.5-10.0) K/mm3 RBC 4.84 (4.2-5.4) M/mm3 Hgb 13.3 (12.0-15.0) g/dL Hct 43.1 (37.0-47.0) % MCV 89.0 (80-100) fl MCH 27.5 (26-34) pg MCHC 30.9 L (32-36) g/dl RDW 15.7 H (11.5-14.5) % Plt Count 257 D (150-375) k/mm3 MPV 11.2 H (7.4-10.4) fl Immature Gran % (Auto) 0.4 (0-0.5) % Neut % (Auto) 68.9 (45.5-73.1) % Lymph % (Auto) 20.8 (18.3-44.2) % [place] % (Auto) 8.9 H (2.6-8.5) % Eos % (Auto) 0.6 (0-4.4) % Baso % (Auto) 0.4 (0.2-1.2) % Lymph # (Auto) 1.98 (0.9-3.2) K/mm3 [place] # (Auto) 0.9 H (0.1-0.6) K/mm3 Eos # (Auto) 0.1 (0-0.3) K/mm3 Baso # (Auto) 0.0 (0.0-0.1) K/mm3 Abs Immat Gran (auto) 0.04 H (0.00-0.031) K/mm3 Absolute Neuts (auto) 6.5 (1.3-6.7) K/mm3 Absolute Nucleated RBC 0.000 (0.0-0.012) K/mm3 Nucleated RBC % 0.0 (0.0-0.2) % Sodium Cancelled 137 Potassium Cancelled 4.2 Chloride Cancelled Carbon Dioxide Anion Gap BUN Creatinine Estim Creat Clear Calc Estimated GFR Glucose Calcium Ionized Calcium Phosphorus Magnesium (1.6-2.3) mg/dL Total Bilirubin AST ALT Alkaline Phosphatase Total Protein Albumin Lipase (23-300) U/L Urine Color (Yellow) Urine Appearance (Clear) Urine pH (5.0-9.0) Ur Specific [place] (1.001-1.035) Urine Protein (Negative) mg/dL Urine Glucose (UA) (Negative) mg/dL Urine Ketones (Negative) mg/dL Ur Blood (Man) (Negative) Urine Nitrate (Negative) Urine Bilirubin (Negative) Urine Urobilinogen (<2.0) mg/dL Leukocyte Esterase Rfl (Negative) ASTRID/UL Urine RBC (0-2) /hpf Urine WBC (0-3) /hpf Ur Squamous Epith Cells (Few) /hpf Urine Bacteria /hpf Urine Casts 07/13/25 07/13/25 07/13/25 Range/Units 21:48 21:48 21:48 WBC (4.5-10.0) K/mm3 RBC (4.2-5.4) M/mm3 Hgb (12.0-15.0) g/dL Hct (37.0-47.0) % MCV (80-100) fl MCH (26-34) pg MCHC (32-36) g/dl RDW (11.5-14.5) % Plt Count (150-375) k/mm3 MPV (7.4-10.4) fl Immature Gran % (Auto) (0-0.5) % Neut % (Auto) (45.5-73.1) % Lymph % (Auto) (18.3-44.2) % [place] % (Auto) (2.6-8.5) % Eos % (Auto) (0-4.4) % Baso % (Auto) (0.2-1.2) % Lymph # (Auto) (0.9-3.2) K/mm3 [place] # (Auto) (0.1-0.6) K/mm3 Eos # (Auto) (0-0.3) K/mm3 Baso # (Auto) (0.0-0.1) K/mm3 Abs Immat Gran (auto) (0.00-0.031) K/mm3 Absolute Neuts (auto) (1.3-6.7) K/mm3 Absolute Nucleated RBC (0.0-0.012) K/mm3 Nucleated RBC % (0.0-0.2) % Sodium Potassium Chloride 101 Carbon Dioxide Cancelled 29 Anion Gap Cancelled 7 BUN Cancelled Creatinine Estim Creat Clear Calc Estimated GFR Glucose Calcium Ionized Calcium Phosphorus Magnesium (1.6-2.3) mg/dL Total Bilirubin AST ALT Alkaline Phosphatase Total Protein Albumin Lipase (23-300) U/L Urine Color (Yellow) Urine Appearance (Clear) Urine pH (5.0-9.0) Ur Specific [place] (1.001-1.035) Urine Protein (Negative) mg/dL Urine Glucose (UA) (Negative) mg/dL Urine Ketones (Negative) mg/dL Ur Blood (Man) (Negative) Urine Nitrate (Negative) Urine Bilirubin (Negative) Urine Urobilinogen (<2.0) mg/dL Leukocyte Esterase Rfl (Negative) ASTRID/UL Urine RBC (0-2) /hpf Urine WBC (0-3) /hpf Ur Squamous Epith Cells (Few) /hpf Urine Bacteria /hpf Urine Casts 07/13/25 07/13/25 07/13/25 Range/Units 21:48 21:48 21:48 WBC (4.5-10.0) K/mm3 RBC (4.2-5.4) M/mm3 Hgb (12.0-15.0) g/dL Hct (37.0-47.0) % MCV (80-100) fl MCH (26-34) pg MCHC (32-36) g/dl RDW (11.5-14.5) % Plt Count (150-375) k/mm3 MPV (7.4-10.4) fl Immature Gran % (Auto) (0-0.5) % Neut % (Auto) (45.5-73.1) % Lymph % (Auto) (18.3-44.2) % [place] % (Auto) (2.6-8.5) % Eos % (Auto) (0-4.4) % Baso % (Auto) (0.2-1.2) % Lymph # (Auto) (0.9-3.2) K/mm3 [place] # (Auto) (0.1-0.6) K/mm3 Eos # (Auto) (0-0.3) K/mm3 Baso # (Auto) (0.0-0.1) K/mm3 Abs Immat Gran (auto) (0.00-0.031) K/mm3 Absolute Neuts (auto) (1.3-6.7) K/mm3 Absolute Nucleated RBC (0.0-0.012) K/mm3 Nucleated RBC % (0.0-0.2) % Sodium Potassium Chloride Carbon Dioxide Anion Gap BUN 27 H Creatinine Cancelled 2.22 H Estim Creat Clear Calc Cancelled 34 Estimated GFR Cancelled Glucose Calcium Ionized Calcium Phosphorus Magnesium (1.6-2.3) mg/dL Total Bilirubin AST ALT Alkaline Phosphatase Total Protein Albumin Lipase (23-300) U/L Urine Color (Yellow) Urine Appearance (Clear) Urine pH (5.0-9.0) Ur Specific [place] (1.001-1.035) Urine Protein (Negative) mg/dL Urine Glucose (UA) (Negative) mg/dL Urine Ketones (Negative) mg/dL Ur Blood (Man) (Negative) Urine Nitrate (Negative) Urine Bilirubin (Negative) Urine Urobilinogen (<2.0) mg/dL Leukocyte Esterase Rfl (Negative) ASTRID/UL Urine RBC (0-2) /hpf Urine WBC (0-3) /hpf Ur Squamous Epith Cells (Few) /hpf Urine Bacteria /hpf Urine Casts 07/13/25 07/13/25 07/13/25 Range/Units 21:48 21:48 21:48 WBC (4.5-10.0) K/mm3 RBC (4.2-5.4) M/mm3 Hgb (12.0-15.0) g/dL Hct (37.0-47.0) % MCV (80-100) fl MCH (26-34) pg MCHC (32-36) g/dl RDW (11.5-14.5) % Plt Count (150-375) k/mm3 MPV (7.4-10.4) fl Immature Gran % (Auto) (0-0.5) % Neut % (Auto) (45.5-73.1) % Lymph % (Auto) (18.3-44.2) % [place] % (Auto) (2.6-8.5) % Eos % (Auto) (0-4.4) % Baso % (Auto) (0.2-1.2) % Lymph # (Auto) (0.9-3.2) K/mm3 [place] # (Auto) (0.1-0.6) K/mm3 Eos # (Auto) (0-0.3) K/mm3 Baso # (Auto) (0.0-0.1) K/mm3 Abs Immat Gran (auto) (0.00-0.031) K/mm3 Absolute Neuts (auto) (1.3-6.7) K/mm3 Absolute Nucleated RBC (0.0-0.012) K/mm3 Nucleated RBC % (0.0-0.2) % Sodium Potassium Chloride Carbon Dioxide Anion Gap BUN Creatinine Estim Creat Clear Calc Estimated GFR 22 L Glucose Cancelled 140 H Calcium Cancelled 13.0 H* Ionized Calcium Pending Phosphorus Cancelled Magnesium (1.6-2.3) mg/dL Total Bilirubin AST ALT Alkaline Phosphatase Total Protein Albumin Lipase (23-300) U/L Urine Color (Yellow) Urine Appearance (Clear) Urine pH (5.0-9.0) Ur Specific [place] (1.001-1.035) Urine Protein (Negative) mg/dL Urine Glucose (UA) (Negative) mg/dL Urine Ketones (Negative) mg/dL Ur Blood (Man) (Negative) Urine Nitrate (Negative) Urine Bilirubin (Negative) Urine Urobilinogen (<2.0) mg/dL Leukocyte Esterase Rfl (Negative) ASTRID/UL Urine RBC (0-2) /hpf Urine WBC (0-3) /hpf Ur Squamous Epith Cells (Few) /hpf Urine Bacteria /hpf Urine Casts 07/13/25 07/13/25 07/13/25 Range/Units 21:48 21:48 21:48 WBC (4.5-10.0) K/mm3 RBC (4.2-5.4) M/mm3 Hgb (12.0-15.0) g/dL Hct (37.0-47.0) % MCV (80-100) fl MCH (26-34) pg MCHC (32-36) g/dl RDW (11.5-14.5) % Plt Count (150-375) k/mm3 MPV (7.4-10.4) fl Immature Gran % (Auto) (0-0.5) % Neut % (Auto) (45.5-73.1) % Lymph % (Auto) (18.3-44.2) % [place] % (Auto) (2.6-8.5) % Eos % (Auto) (0-4.4) % Baso % (Auto) (0.2-1.2) % Lymph # (Auto) (0.9-3.2) K/mm3 [place] # (Auto) (0.1-0.6) K/mm3 Eos # (Auto) (0-0.3) K/mm3 Baso # (Auto) (0.0-0.1) K/mm3 Abs Immat Gran (auto) (0.00-0.031) K/mm3 Absolute Neuts (auto) (1.3-6.7) K/mm3 Absolute Nucleated RBC (0.0-0.012) K/mm3 Nucleated RBC % (0.0-0.2) % Sodium Potassium Chloride Carbon Dioxide Anion Gap BUN Creatinine Estim Creat Clear Calc Estimated GFR Glucose Calcium Ionized Calcium Phosphorus 4.1 Magnesium 2.1 (1.6-2.3) mg/dL Total Bilirubin Cancelled 0.7 AST Cancelled 29 ALT Cancelled Alkaline Phosphatase Total Protein Albumin Lipase (23-300) U/L Urine Color (Yellow) Urine Appearance (Clear) Urine pH (5.0-9.0) Ur Specific [place] (1.001-1.035) Urine Protein (Negative) mg/dL Urine Glucose (UA) (Negative) mg/dL Urine Ketones (Negative) mg/dL Ur Blood (Man) (Negative) Urine Nitrate (Negative) Urine Bilirubin (Negative) Urine Urobilinogen (<2.0) mg/dL Leukocyte Esterase Rfl (Negative) ASTRID/UL Urine RBC (0-2) /hpf Urine WBC (0-3) /hpf Ur Squamous Epith Cells (Few) /hpf Urine Bacteria /hpf Urine Casts 07/13/25 07/13/25 07/13/25 Range/Units 21:48 21:48 21:48 WBC (4.5-10.0) K/mm3 RBC (4.2-5.4) M/mm3 Hgb (12.0-15.0) g/dL Hct (37.0-47.0) % MCV (80-100) fl MCH (26-34) pg MCHC (32-36) g/dl RDW (11.5-14.5) % Plt Count (150-375) k/mm3 MPV (7.4-10.4) fl Immature Gran % (Auto) (0-0.5) % Neut % (Auto) (45.5-73.1) % Lymph % (Auto) (18.3-44.2) % [place] % (Auto) (2.6-8.5) % Eos % (Auto) (0-4.4) % Baso % (Auto) (0.2-1.2) % Lymph # (Auto) (0.9-3.2) K/mm3 [place] # (Auto) (0.1-0.6) K/mm3 Eos # (Auto) (0-0.3) K/mm3 Baso # (Auto) (0.0-0.1) K/mm3 Abs Immat Gran (auto) (0.00-0.031) K/mm3 Absolute Neuts (auto) (1.3-6.7) K/mm3 Absolute Nucleated RBC (0.0-0.012) K/mm3 Nucleated RBC % (0.0-0.2) % Sodium Potassium Chloride Carbon Dioxide Anion Gap BUN Creatinine Estim Creat Clear Calc Estimated GFR Glucose Calcium Ionized Calcium Phosphorus Magnesium (1.6-2.3) mg/dL Total Bilirubin AST ALT 26 Alkaline Phosphatase Cancelled 70 Total Protein Cancelled 8.5 H Albumin Cancelled Lipase (23-300) U/L Urine Color (Yellow) Urine Appearance (Clear) Urine pH (5.0-9.0) Ur Specific [place] (1.001-1.035) Urine Protein (Negative) mg/dL Urine Glucose (UA) (Negative) mg/dL Urine Ketones (Negative) mg/dL Ur Blood (Man) (Negative) Urine Nitrate (Negative) Urine Bilirubin (Negative) Urine Urobilinogen (<2.0) mg/dL Leukocyte Esterase Rfl (Negative) ASTRID/UL Urine RBC (0-2) /hpf Urine WBC (0-3) /hpf Ur Squamous Epith Cells (Few) /hpf Urine Bacteria /hpf Urine Casts 07/13/25 Range/Units 21:48 WBC (4.5-10.0) K/mm3 RBC (4.2-5.4) M/mm3 Hgb (12.0-15.0) g/dL Hct (37.0-47.0) % MCV (80-100) fl MCH (26-34) pg MCHC (32-36) g/dl RDW (11.5-14.5) % Plt Count (150-375) k/mm3 MPV (7.4-10.4) fl Immature Gran % (Auto) (0-0.5) % Neut % (Auto) (45.5-73.1) % Lymph % (Auto) (18.3-44.2) % [place] % (Auto) (2.6-8.5) % Eos % (Auto) (0-4.4) % Baso % (Auto) (0.2-1.2) % Lymph # (Auto) (0.9-3.2) K/mm3 [place] # (Auto) (0.1-0.6) K/mm3 Eos # (Auto) (0-0.3) K/mm3 Baso # (Auto) (0.0-0.1) K/mm3 Abs Immat Gran (auto) (0.00-0.031) K/mm3 Absolute Neuts (auto) (1.3-6.7) K/mm3 Absolute Nucleated RBC (0.0-0.012) K/mm3 Nucleated RBC % (0.0-0.2) % Sodium Potassium Chloride Carbon Dioxide Anion Gap BUN Creatinine Estim Creat Clear Calc Estimated GFR Glucose Calcium Ionized Calcium Phosphorus Magnesium (1.6-2.3) mg/dL Total Bilirubin AST ALT Alkaline Phosphatase Total Protein Albumin 4.3 Lipase 67 (23-300) U/L Urine Color Yellow (Yellow) Urine Appearance Cloudy H (Clear) Urine pH 6.5 (5.0-9.0) Ur Specific [place] 1.012 (1.001-1.035) Urine Protein Negative (Negative) mg/dL Urine Glucose (UA) 3+ H (Negative) mg/dL Urine Ketones Negative (Negative) mg/dL Ur Blood (Man) Negative (Negative) Urine Nitrate Negative (Negative) Urine Bilirubin Negative (Negative) Urine Urobilinogen 0.2 (<2.0) mg/dL Leukocyte Esterase Rfl 2+ H (Negative) ASTRID/UL Urine RBC 0-2 (0-2) /hpf Urine WBC 51-100 H (0-3) /hpf Ur Squamous Epith Cells Few (Few) /hpf Urine Bacteria 4+ /hpf Urine Casts 0-2 Discharge Plan Discharge Clinical Impression: LILIAN (acute kidney injury), UTI (urinary tract infection), Hypercalcemia Patient Disposition: Still a Patient Condition: Improved Time of Disposition: 23:55
[2025-07-13 23:30] VITALS: PULSE 78; RESP 20; O2SAT 98
[2025-07-13] MEDS: SODIUM CHLORIDE 0.9% IV 1,000 ML 200 ML IV CONT (23:30)
[2025-07-13 23:31] VITALS: BP 111/69; PULSE 79; RESP 20; O2SAT 98
--- NOTE | 2025-07-13 23:40 | P.HP_ITS ---
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 Patient has been undergoing routine lab clearance for upcoming hiatal hernia surgery by Dr. Hernandez to be performed on August 03, 2025 at [facility]. In checking labs patient's calcium was initially noted to be elevated at 13.0. On recheck couple of days ago calcium was elevated at 13.3 and patient was sent to the emergency room today for management. Patient denies any chest pain, palpitations, muscle contractions, and no shortness of breath, nausea/vomiting/diarrhea. Patient does take supplementation of multivitamin, did recently take care skin and nails and she is taking spironolactone as a result of hair loss due to her use of Mounjaro. It is felt to be believed as she had no difficulty maintaining her calcium level prior at that the vitamins and spironolactone are contributing to her hypercalcemia. Patient also notes that at home her glucose has been running higher than usual and she had what she thought with thrush. She started taking nystatin prescribed by her primary care provider and it started improving so she stopped taking the nystatin. Patient states now she has a very sore tongue again that she describes as a burn and there is a thick plaque on it. She denies any fevers. In the emergency room workup was performed. Vital signs were noted to be normal, EKG showing normal sinus rhythm 85 beats per minute without any ectopy or ischemia. CBC is unremarkable. Metabolic panel is notable for creatinine of 2.22 and BUN of 27. This is above patient's baseline creatinine of 0.8-1.2 historically. Patient's calcium level noted to be 13.3. Ionized calcium is pending. Phosphorus is 4.1, lipase 67 in vitamin-D 104.0. In addition urinalysis shows 2+ leukocyte esterase, 51 to 100 wbc's and 4+ bacteria. Magnesium is checked to be 2.1. She is started on Rocephin 1 g daily for UTI, is on maintenance fluids of normal saline at 200 mL/hour for LILIAN and hypercalcemia and this is after receiving a 1 L bolus of normal saline in the ER. Patient will have in trending of her labs to include calcium, and renal function and she is being admitted on telemetry in the current setting for yamila nued management. Review of Systems Review of Systems: All systems reviewed & are unremarkable except as noted in HPI and below PMFSH Past Medical History Medical History (Updated 07/14/25 @ 00:03 by KATIE Hurley) Peripheral neuropathy Thrush, oral UTI (urinary tract infection) LILIAN (acute kidney injury) Amputation of right lower extremity Positive colorectal cancer screening using Cologuard test Asthma Hypertension Obesities, morbid Therapeutic opioid-induced constipation (OIC) Nausea Epigastric pressure Early satiety Family hx of colon cancer Gastroparesis Hiatal hernia Amputation of right lower extremity below knee Anxiety Other [facility] (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 therapy Peripheral polyneuropathy Phantom limb Uncontrolled type 2 diabetes mellitus with hyperglycemia Surgical History Surgical History History of carpal tunnel surgery of left wrist Hx of hysterectomy Family History Family History Mother Diabetes mellitus Heart failure Grandparent Diabetes mellitus Family history of pancreatic cancer Family history of colonic diverticulitis Sibling COPD (chronic obstructive pulmonary disease) Parkinson disease Father Parkinson disease Social History Social History Smoking status: Never smoker Second hand tobacco smoke exposure: No Alcohol intake: never Substance use: never Substance use type: does not use Do You Feel Safe in your Home?: Yes Lack of Transportation: No Lack of Food: Never True Current Housing: I Have Housing Concerned About Future Housing: No Difficulty Paying Gas/Electric Bills: No Difficulty Paying for Meds: No Currently Unemployed: No Education: High School Diploma/GED Difficulty w/ Childcare or Family Care: No Living arrangements: with family Meds Home Medications and Allergies Home Medications ?Medication ?Instructions ?Recorded ?Confirmed ?Type blood-glucose meter (ZOGOtennis #1 ea 11/26/21 07/05/25 Rx Glucose Monitoring System kit) magnesium 250 mg tablet 250 mg PO DAILY 02/02/23 History lidocaine 5 % topical patch 1 patch topical DAILY #30 ea 11/30/23 07/05/25 Rx pen needle, diabetic 31 gauge x #100 ea 08/31/2407/05 Rx 3/16 (BD Ultra-Fine Mini Pen Needle) hyoscyamine sulfate 0.125 mg tablet 0.125 mg sublingua l Q6-8H PRN 09/30/24 07/05/25 Rx dyspepsia #120 tabs lisinopril 2.5 mg tablet See Rx Instructions .Route 1 01/15/24 07/05/25 Rx .COMPLEX #90 tabs albuterol sulfate 90 mcg/actuation See Rx Instructions .Route 12/29/24 07/05/25 Rx aerosol inhaler .COMPLEX #8.5 grams ibuprofen 800 mg tablet See Rx Instructions .Route 0 01/10/25 07/05/25 Rx .COMPLEX #270 tabs naloxone 4 mg/actuation nasal 4 mg intranasal Q2-3M NJ N opioid 03/06/25 07/05/25 Rx spray (Narcan) overdose #2 ea empagliflozin 25 mg tablet See Rx Instructions .Route 03/20/25 07/05/25 Rx (Jardiance) .COMPLEX #90 tabs ferrous sulfate 325 mg (65 mg See Rx Instructions .Rou te 03/20/25 07/05/25 Rx iron) tablet,delayed release .COMPLEX #90 tabs rosuvastatin 5 mg tablet See Rx Instructions .Route 0 03/20/25 07/05/25 Rx .COMPLEX #90 tabs polyethylene glycol 3350 17 17 g PO DAILY PRN Constipa tion 03/27/25 07/05/25 Rx gram/dose oral powder (Miralax) #510 grams famotidine 20 mg tablet See Rx Instructions .Route 0 04/04/25 07/05/25 Rx .COMPLEX #90 tabs azelastine 137 mcg (0.1 %) nasal 1 spray intranasal Q1 2H #30 mL 04/19/25 07/05/25 Rx spray loratadine 10 mg tablet (Claritin) 10 mg PO DAILY #30 tabs 04/19/25 07/05/25 Rx ondansetron 4 mg disintegrating See Rx Instructions .R oute 05/04/25 07/05/25 Rx tablet .COMPLEX #20 tabs spironolactone 50 mg tablet 50 mg PO DAILY #90 tabs 07/05/25 Rx Held on 07/13/25. Instructions: .Provider Order cholecalciferol (vitamin D3) 1,250 See Rx Instructions .Route 05/22/25 07/05/25 Rx mcg (50,000 unit) capsule .COMPLEX #12 caps omeprazole 40 mg capsule,delayed See Rx Instructions . Route 06/13/25 07/05/25 Rx release .COMPLEX #90 caps nystatin 100,000 unit/mL oral 1 ml PO DAILY #500 mL 07/05/25 Rx suspension alprazolam 0.5 mg tablet 0.5 mg PO TID PRN anxiety #9 0 tabs 06/28/25 07/05/25 Rx hydrocodone 10 mg-acetaminophen 1 tablet PO Q8H PRN pa in #90 tabs 06/28/25 07/05/25 Rx 325 mg tablet blood-glucose meter #1 ea 07/05/25 07/05/25 Rx gabapentin 600 mg tablet See Rx Instructions .Route 0 07/05/25 07/05/25 Rx .COMPLEX #180 tabs blood sugar diagnostic (CareTouch #300 ea 07/06/25 Rx Test Strip) lancets 33 gauge (CareTouch Twist #300 ea 07/06/25 Rx Lancet) insulin glargine 100 unit/mL (3 See Rx Instructions hi bcut .COMPLEX 07/10/25 History mL) subcutaneous pen (Lantus Solostar U-100 Insulin) tirzepatide 12.5 mg/0.5 mL See Rx Instructions .Route 07/10/25 Rx subcutaneous pen injector .COMPLEX #2 mL (Mounjaro) Allergies Allergy/AdvReac Type Severity Reaction Status Date / Time amoxicillin Allergy Unknown Unknown Verified 07/13/25 21:26 codeine Allergy Unknown Unknown Verified 07/13/25 21:26 nitrofurantoin Allergy Unknown Unknown Verified 07/13/25 21:26 Sulfa (Sulfonamide Allergy Unknown Unknown Verified 07/13/25 21:26 Antibiotics) ciprofloxacin Allergy Swelling Verified 07/13/25 21:26 of Lip/Tongue/Throat metformin AdvReac cramping, Verified 07/13/25 21:26 nausea, abdominal pain morphine AdvReac Anxiety Verified 07/13/25 21:26 Vital Signs Vital Signs - 24 hr 07/13/25 21:23 Temperature 98.2 F Pulse Rate 82 Respiratory Rate 20 Blood Pressure 124/65 Pulse Oximetry 97 Exam Const: General: comfortable and no acute distress Other: Obese female pt lying supine on stretcher at this time in no acute distress. HENMT: Face/Nose/Sinus: Normal nares present Mouth: Yes Abnormal oral and palatal mucosa present (Thick, pale yellow plaque on tongue.) Eyes: General: appearance normal, both eyes and all related structures Neck: Neck: supple and no JVD Lymphatic: lymphadenopathy not noted Resp: Effort & Inspection: normal respiratory effort Auscultation: clear to auscultation bilaterally Cardio: Rate: regular rate Rhythm: regular rhythm Heart sounds: no gallops, no murmurs and no rubs GI: GI Palp: Yes Soft to palpation and No Tenderness to palpation present (GI) Auscultation: normal bowel sounds Skin: General skin exam: normal color, no rashes or lesions noted and no erythema Wounds: no wounds Neuro: Speech: normal speech Motor exam (neuro): Normal motor muscle tone present throughout and Abnormal motor strength present Extrem: Other: Right BKA, otherwise unremarkable Psych: Mental Status: mental status grossly normal Affect: normal affect H&P: Results Labs Labs: Short CBC 07/13/25 Range/Units 21:48 WBC 9.5 (4.5-10.0) K/mm3 Hgb 13.3 (12.0-15.0) g/dL Hct 43.1 (37.0-47.0) % Plt Count 257 D (150-375) k/mm3 BMP 07/13/25 07/13/25 07/13/25 21:48 21:48 21:48 Sodium Cancelled 137 Potassium Cancelled 4.2 Chloride Cancelled Carbon Dioxide BUN Creatinine Glucose Calcium 07/13/25 07/13/25 07/13/25 21:48 21:48 21:48 Sodium Potassium Chloride 101 Carbon Dioxide Cancelled 29 BUN Cancelled 27 H Creatinine Cancelled Glucose Calcium 07/13/25 07/13/25 07/13/25 21:48 21:48 21:48 Sodium Potassium Chloride Carbon Dioxide BUN Creatinine 2.22 H Glucose Cancelled 140 H Calcium Cancelled 13.0 H* Liver Function 07/13/25 07/13/25 07/13/25 Range/Units 21:48 21:48 21:48 Total Bilirubin Cancelled 0.7 AST Cancelled 29 ALT Cancelled Alkaline Phosphatase Albumin 07/13/25 07/13/25 07/13/25 Range/Units 21:48 21:48 21:48 Total Bilirubin AST ALT 26 Alkaline Phosphatase Cancelled 70 Albumin Cancelled 4.3 Urine 07/13/25 Range/Units 21:48 Urine Color Yellow (Yellow) Urine Appearance Cloudy H (Clear) Urine pH 6.5 (5.0-9.0) Ur Specific Donnelly 1.012 (1.001-1.035) Urine Protein Negative (Negative) mg/dL Urine Glucose (UA) 3+ H (Negative) mg/dL Assessment and Plan Assessment and plan (1) Hypercalcemia: Code(s): E83.52 - Hypercalcemia Status: Acute Assessment and Plan: * 13.3-->13.0. * Etiology thought to be due to the use of Spironolactone and MVI to help re place hair loss 2/2 Mounjaro. * Continue aggressive hydration with NS at 200 ml/hr as pt has no hx of Heart Failure. * Trend labs and VS. * Telemetry * Consider Calcitonin if no continued improvement in Calcium level. * Check Intact Parathyroid level. (2) LILIAN (acute kidney injury): Code(s): N17.9 - Acute kidney failure, unspecified Status: Acute Assessment and Plan: * Baseline Cr is 0.8-1.2. Increased here tonight to 2.22. * Etiology felt to be due to the Spironolactone that she has been taking for the past month for hair loss. * Continue IV hydration with NS at 200 ml/hr * Trend labs. * If acute worsening after aggressive hydration that is currently ordered, consider Renal US or other advanced imaging. (3) UTI (urinary tract infection): Code(s): N39.0 - Urinary tract infection, site not specified Status: Acute Assessment and Plan: * UA suspicious for UTI with noted 2+ Leukocyte Esterase, 51-100 WBCs and 4+ Bacteria. * Culture is pending. * Rocephin 1G daily. * Not meeting sepsis criteria. (4) Thrush, oral: Code(s): B37.0 - Candidal stomatitis Status: Acute Assessment and Plan: * Nystatin swish and swallow * Diflucan 150 mg daily for 7 days. (5) Asthma: Code(s): J45.909 - Unspecified asthma, uncomplicated Status: Chronic Assessment and Plan: * PRN Albuterol nebs as needed for wheezing/dyspnea. 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 * Hold Mounjaro. (7) Vitamin D deficiency: Code(s): E55.9 - Vitamin D deficiency, unspecified Status: Chronic Assessment and Plan: * Continue home supplementation once it has been verified and confirmed. (8) Peripheral neuropathy: Code(s): G62.9 - Polyneuropathy, unspecified Status: Chronic Assessment and Plan: * Continue Gabapentin. * Pt with hx of traumatic Right BKA. Plan Full code Lovenox Quality VTE Prophylaxis VTE prophylaxis: pharmacologic ordered Hospitalist [facility] Advance Care Plan I have confirmed that the patient's Advanced Care Plan is present, code status is documented, or surrogate decision maker is listed in patient medical record.: Yes Medication Reconciliation I have utilized all available resources to obtain, update and review the patients current medications (includes all prescriptions, OTC, herbals, cannabis, and nutritional supplements).: Yes
[2025-07-13 23:41] LABS: Magnesium 2.1 mg/dL (1.6-2.3)
[2025-07-14] VITALS (10 sets, daily range): BP systolic 96–124; BP diastolic 43–69; PULSE 73–84; RESP 18–20; TEMP 36–36.6; O2SAT 93–99; BMI 34.6
[2025-07-14] MEDS: cefTRIAXone 1 GM in SODIUM CHLORIDE 0.9% IV 50 ML 100 ML IVPB ×2 (00:19→21:58)
[2025-07-14 00:34] LABS: Hemoglobin A1C 7.9 % (<5.7)
--- NOTE | 2025-07-14 01:29 | ADMGEN ---
This patient, Marge Alarcon, was admitted to 3 Med Surg Room 320-01. Patient/family oriented to hospital policies and general routines including ID bracelet, bed and alarms, visiting hours, pain management, procedures, bathroom and other care routines, personal items, smoking policy, room service/diet, and visiting hours. Information on how to activate the Rapid Response Team has been discussed. Patient/Family are encouraged to report perceived risks to care and to ask questions if they do not understand what they are told or what they should do.
[2025-07-14 01:30] LABS: Parathyroid Intact < 14.5 pg/mL (14.5-75.2)
[2025-07-14] MEDS: HYDROcodone/acetaminophen (*CRX) 10-325 MG TABLET 1 TAB PO ×3 (02:46→22:11)
[2025-07-14 06:26] LABS: Hematocrit 35.7 % (37.0-47.0); Hemoglobin 11.1 g/dL (12.0-15.0); Immature Granulocyte Percent A 0.3 % (0-0.5); Lymphocytes Absolute Auto 2.07 K/mm3 (0.9-3.2); Mean Corpuscular HGB Conc 31.1 g/dl (32-36); Mean Corpuscular Hemoglobin 27.9 pg (26-34); Mean Corpuscular Volume 89.7 fl (80-100); Nucleated Red Blood Cells Absolute Auto 0.000 K/mm3 (0.0-0.012); Nucleated Red Blood Cells Perc 0.0 % (0.0-0.2); Platelet Count Result 190 k/mm3 (150-375); Red Blood Count 3.98 M/mm3 (4.2-5.4); White Blood Count 6.0 K/mm3 (4.5-10.0)
[2025-07-14 06:46] LABS: Alanine Aminotransferase 17 U/L (6-35); Albumin Level 3.2 g/dL (3.5-5.1); Alkaline Phosphatase 57 U/L (38-126); Anion Gap 3 mmol/L (4-12); Aspartate Amino Transferase 23 U/L (14-36); Bilirubin,Total 0.5 mg/dL (0.2-1.3); Blood Urea Nitrogen 26 mg/dL (7-17); Calcium 11.2 mg/dL (8.4-10.2); Carbon Dioxide 28 mmol/L (22-30); Chloride 106 mmol/L (98-107); Estimated CRCL calculation 38 ml/min; Estimated Glomerular Filt Rate 26; Glucose 122 mg/dL (65-110); Magnesium 2.1 mg/dL (1.6-2.3); Potassium 3.7 mmol/L (3.4-5.0); Sodium 137 mmol/L (137-145); Total Protein 6.4 g/dL (6.3-8.2)
[2025-07-14 07:16] LABS: Thyroid Stimulating Hormone Reflex 5.140 uIU/mL (0.465-4.68)
--- OUTSIDE RECORDS SUMMARY | 2025-07-14 08:14 | XMS_ITS | Encounter Summary ---
Author Organization [facility] Address [address] [place] [address] Phone Care Team Providers Care Rough And Truing Machine Operator Name Role Phone Analy Wilkerson LYNDA, PRINCIPAL TRAINER Unavailable Armen Johns MD Primary Care Provider [phone] Encounter Details Date Type Department Care Team (Late st Contact Info) Description 06/12/2025 Results Follow-Up [facility] - [facility] [place] [address] [place] [address] Shad Ospina, AKHIL [address] [place] [id number] XR CHEST 2 VIEWS Social History Tobacco Use Types Packs/Day Years Used Date Smoking Tobacco: Never Smokeless Tobacco: Never Alcohol Use Standard Drinks/Week Comments Not Currently 0 (1 standard drink = 0.6 oz pur e alcohol) Rarely [facility] Utilities Answer Date Recorded In the past [...] any time in the past 12 m [facility], were you homeless or living in a fci (including now)? No 01/12/2025 Comments No Sex [...] documented as of this encounter Care Teams Rough And Truing Machine Operator Relationship Specialty Start Date End Date Armen Johns MD PCP - General Family Medicine 05/26/22 Anayl Wilkerson, [employer], PRINCIPAL TRAINER Nurse Practitioner Advanced Practice Nurse 07/25/16 documented as of this encounter
--- OUTSIDE RECORDS SUMMARY | 2025-07-14 08:14 | XMS_ITS | Clinical Summary ---
Author Organization [facility] Address [address] [place] [address] Phone Care Team Providers Care Manager Math Name Role Phone Analy Wilkerson APRN, RECYCLING PROGRAM MANAGER Unavailable Armen Johns MD Primary Care Provider [phone] Allergies Active Allergy Reactions Criticality Noted Date [...] 1/2 tab. Active Vitamin D3 1.25 MG (64001 UT) Capsule Take 5,000 Units by mouth [...] Team Description 06/12/2025 Results Follow-Up [facility] [address] [place] [phone] Shad Ospina, PAC XR CHEST 2 VIEWS 06/11/2025 6:00 PM CDT Ancillary Procedure [facility] [place] [address] [place] [id number] Malini Weathers APRN, KEIRY Acute cough; SOB (shortness of breath) Discharge Disposition: Discharged to home or Selfcare 06/11/2025 5:15 PM CDT Urgent Care Visit [facility] [address] [place] [phone] Malini Weathers APRN, KEIRY Acute cough (Primary Dx); Lower respiratory infection (e.g., bronchitis, pneumonia, pneumonitis, pulmonitis); SOB (shortness of breath); Nausea; Moderate persistent asthma with acute exacerbation; Type 2 diabetes mellitus with diabetic neuropathy, with long-term current use of insulin ([facility]) Discharge Disposition: Discharged to home or Selfcare 06/11/2025 [facility] [address] [place] [address] Nurse, Branden [facility] xray results 06/11/2025 Travel from Last 3 Months Immunizations Immunization Administration Dates Next Due Influenza Vaccine, Quadrivalent, PF 11/2021,09/13/2021,03/11/2020,10/30 Influenza, Injectable, Quadrivalent 09/25/2016 Influenza, Seasonal, Injecta ble, Undefined 10/25/2015 Influenza,Split Virus,Trivalent,Injectable,PF 10/27/2013 Pneumococcal Vaccine Adult - 23 Valent ,03/11/2020 Pneumococcal conjugate PCV20 , polysaccharide [id number] conjugate, adjuvant, PF 05/09/2023 TDAP Vaccine 03/12/2019 [...] = 0.6 oz pur e alcohol) Rarely [facility] Utilities Answer Date Recorded In the past 12 months has th e MDdatacor, gas, oil, or water [employer] threatened to shut off services in your [...] any time in the past [address] [facility], were you homeless or living in [...] 128.4 kg (283 lb) 01/12/2025 8:44 AM URBAN PLANNING PROFESSOR Height 182.9 cm (6') 01/12/2025 8:44 AM URBAN PLANNING PROFESSOR Body Mass Index 38.38 01/12/2025 8:44 AM URBAN PLANNING PROFESSOR Plan of Treatment Health Maintenance Due Date [...] (COMPREHENSIVE METABOLIC PANEL) STAT 01/11/2025 10:29 PM URBAN PLANNING PROFESSOR HEMOGLOBIN A1C W/ ESTIMATED GLUCOSE STAT 01/11/2025 10:29 PM URBAN PLANNING PROFESSOR STOOL, OCCULT BLOOD, DIAGNOSTIC, VIA GUAIAC Routine [...] Flex Young M.D. KR: LACI Report ID: [id number] Reading Location: [id number] Procedure Note Flex Young MD - 06/11/2025 [...] Flex Young M.D. KR: LACI Report ID: [id number] Reading Location: [id number] IMPRESSION: No acute cardiopulmonary abnormality. Stable large hiatal hernia. Malini Weathers APRN, CNP IMG DIAGNOSTIC ORDER NICKI Final Result * POC SARS-COV-2 BY MOLECULAR (06/11/2025 5:47 PM CDT) Pathologist [facility] SARSCOV2 Negative Negative, INVALID PROCEDURE CONTROL Valid 06/11/2025 5:47 PM CDT Malini Weathers APRN, CNP POINT OF CARE TESTIN G (MANUAL) Final Result * (ABNORMAL) Hemoglobin A1C (if indicated) (01/11/2025 10:29 PM URBAN PLANNING PROFESSOR) [facility] HGB-A1C 11.8(H) 4.0 - 6.0 % 01/12/2025 4:45 AM URBAN PLANNING PROFESSOR [facility] Est Average Glucose 292.0 mg/dL 01/12/2025 4:45 AM URBAN PLANNING PROFESSOR [facility] Blood Venipuncture / Unknown 01/11/2025 10:29 PM URBAN PLANNING PROFESSOR 01/11/2025 10:45 PM URBAN PLANNING PROFESSOR Narrative [facility] - 01/12/2025 4:45 AM URBAN PLANNING PROFESSOR HEMOGLOBIN A1C: DIABETIC PATIENTS: WELL-CONTROLLED: 6.2 - 7.0 INTERMEDIATE WELL-CONTROLLED: 7.0 - 9.0 POORLY-CONTROLLED: >9.0 Specimens containing greater than 5% of Hemoglobin F may result in lower than expected % HbA1C results. Katy Otero APRN, CNP CHEMISTRY ORDERABLES Yue l Result [facility] [address] [place] [address] * (ABNORMAL) CMP (01/11/2025 10:29 PM URBAN PLANNING PROFESSOR) [facility] SODIUM 138 136 - 145 mmol/L 01/11/2025 11:07 PM URBAN PLANNING PROFESSOR [facility] POTASSIUM 4.7 3.5 - 5.1 mmol/L 01/11/2025 11:07 PM [facility] Comment: Specimen is hemolyzed. In vitro hemolysis could affect results. Clinical correlation advised. CHLORIDE 106 98 - 107 mmol/L 01/11/2025 11:07 PM [facility] CO2, VENOUS 20(L) 22 - 30 mmol/L 01/11/2025 11:07 PM [facility] ANION GAP 16.7 <18.0 mmol/L 01/11/2025 11:07 PM [facility] GLUCOSE 318(H) 70 - 99 mg/dL 01/11/2025 11:07 PM [facility] BUN 21(H) 10 - 20 mg/dL 01/11/2025 11:07 PM [facility] CREATININE, BLOOD 1.83(H) 0.60 - 1.00 mg/dL 01/11/2025 11:07 PM [facility] BUN/CREATININE RATIO 11(L) 12 - 20 ratio 01/11/2025 11:07 PM [facility] TOTAL PROTEIN 8.2(H) 6.0 - 8.0 g/dL 01/11/2025 11:07 PM [facility] Comment: Specimen is hemolyzed. In vitro hemolysis could affect results. Clinical correlation advised. ALBUMIN 3.5 3.5 - 5.0 g/dL 01/11/2025 11:07 PM [facility] A/G RATIO 0.7(L) 1.0 - 2.2 01/11/2025 11:07 PM [facility] CALCIUM 8.9 8.7 - 10.5 mg/dL 01/11/2025 11:07 PM [facility] T BILI 0.6 0.2 - 1.2 mg/dL 01/11/2025 11:07 PM [facility] SGOT (AST) 37 <43 U/L 01/11/2025 11:07 PM [facility] Comment: Specimen is hemolyzed. In vitro hemolysis could affect results. Clinical correlation advised. SGPT (ALT) 17 <56 U/L 01/11/2025 11:07 PM URBAN PLANNING PROFESSOR [facility] ALKALINE PHOSPHATASE 66 40 - 150 U/L 01/11/2025 11:07 PM URBAN PLANNING PROFESSOR [facility] GFR, ESTIMATED 31(L) >=60 01/11/2025 11:07 PM URBAN PLANNING PROFESSOR [facility] Comment: Creatinine Clearance is the preferred criteria for selecting drug dose adjustments in renally impaired patients. The GFR is provided as additional pertinent clinical information. GFR is reported in mL/min/1.73 sq m. Calculation based on the Chronic Kidney Disease Epidemiology Collaboration (CKD- EPI) equation refit without adjustment for race. GFR, EST. 34(L) >=60 025 11:07 PM URBAN PLANNING PROFESSOR [facility] GFR, EST. NONAFRICAN 28(L) >=60 01/11/2025 11:07 PM URBAN PLANNING PROFESSOR [facility] Blood Venipuncture / Unknown 01/11/2025 10:29 PM URBAN PLANNING PROFESSOR 01/11/2025 10:45 PM URBAN PLANNING PROFESSOR us Shady Irby MD CHEMISTRY ORDERABLES Final Result [facility] [address] [place] [address] * Stool, Occult Blood, Diagnostic (03/11/2020 12:35 AM CDT) OCCULT BLOOD DIAG Negative Negative 03/11/2020 1:11 AM CDT [facility] Stool specimen (specimen) STOOL SPECIMEN / Unknown Non-Phlebotomy Collection / Unknown 03/11/2020 12:35 AM CDT 03/11/2020 12:41 AM CDT us Alyssia Leyva APRN, RECYCLING PROGRAM MANAGER BODY FLUIDS & STOOL S ORDERABLES Final Result [facility] [address] [place] [address] * BRIGITTE DIAG BILATERAL DIGITAL W CAD [...] exams dated: 11/03/2006, 11/04/2013, 10/27/2006, and 10/27/2006 [facility]. BREAST TISSUE:There are scattered fibroglandular densities [...] signed by: Sintia Duarte M.D. ll/:04/30/2018 11:30:16 Career Consultant: Marcia Resendiz (Chandu), [facility] letter sent: Normal Exam Reading location: [facility] OVERALL STUDY BIRADS: 2 Benign Procedure [...] exams dated: 11/03/2006, 11/04/2013, 10/27/2006, and 10/27/2006 [facility]. BREAST TISSUE:There are scattered fibroglandular densities [...] signed by: Sintia Duarte M.D. 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 Care Teams Manager Math Relationship Specialty Start Date End Date Armen Johns MD PCP - General Family Medicine 05/26/22 Analy Wilkerson APRN, RECYCLING PROGRAM MANAGER Nurse Practitioner Advanced Practice Nurse 07/25/16
--- OUTSIDE RECORDS SUMMARY | 2025-07-14 08:14 | XMS_ITS | Clinical Summary ---
Author Organization [facility] Address [address] [place] [address] [address] Team [address] Care [address] Freight Brake Coupler Name Role Phone Nena Garcia NP Unavailable [phone] Armen Johns MD Primary Care Provider [phone] Allergies Active Allergy Reactions Criticality Noted Date [...] 9 Active blood-glucose meter (ONETOUCH ULTRA2 METER) [facility] USE DIRECTED TO TEST BLOOD SUGAR 6 [...] neuropathy, without long-term current use of insulin ([facility]) 03/17/2019 Assessment & Plan (03/17/2019 4:18 PM CDT): 58-year-old woman with history of type 2 diabetes admitted March 12, 2019 after 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 Not on file Not on file Obstetrics History Last Filed Vital Signs Vital Sign Reading Time Taken Comments Blood Pressure 122/74 10/16/2024 6:48 PM SECTION CHIEF Pulse 70 10/16/2024 6:48 PM SECTION CHIEF Temperature 36.7 C (98.1 F) 10/16/2024 6:48 PM SECTION CHIEF Respiratory Rate 17 10/16/2024 6:48 PM SECTION CHIEF Oxygen Saturation 98% 10/16/2024 6:48 PM SECTION CHIEF Inhaled Oxygen Concentration - - Weight 136.1 kg (300 lb) 10/16/2024 6:48 PM SECTION CHIEF per patient Height 182.9 cm (6') 10/16/2024 6:48 PM SECTION CHIEF Body Mass Index 40.69 10/16/2024 6:48 PM SECTION CHIEF Plan of Treatment Health Maintenance Due Date [...] DIGITAL MAMMOGRAPHY Routine 11/04/2013 2 :19 PM SECTION CHIEF from Last 3 Months or Most Recently Relevant to Health Maintenance Results * Lipid panel (03/13/2019 1:03 AM CDT) Cholesterol 182 30 - 199 mg/dL [facility] Comment: Interpretive Data Ages < [...] on 2018. Triglycerides 78 <=149 mg/dL [facility] Comment: Interpretive Data Ages < [...] on 2018. HDL 45 >=40 mg/dL [facility] Comment: Interpretive Data Ages < [...] 2018. LDL, calculated 121 <=129 mg/dL [facility] Comment: Interpretive Data Ages < [...] on 2018. Non-HDL Cholesterol 136 mg/dL [facility] Comment: Interpretive Data Ages < [...] last revised on 2018. Chol/HDL ratio 4 [facility] Blood specimen (specimen) 03/13/2019 1:03 AM CDT 03/13/2019 12:42 PM CDT Narrative [facility] - 03/14/2019 2:21 AM CDT [place] MD LAB BLOOD ORDERABL ES Final Result Performing Organization Address [facility] de Phone Number [facility] Department [place] [address] * (ABNORMAL) Hemoglobin A1c (03/12/2019 2:48 PM CDT) Hgb A1C 9.3(H) 4.0 - 5.6 % [facility] Estimated Average Glucose 220 mg/dL [facility] Comment: The ADA recommends reporting an estimated Average Glucose (eAG) with all Hemoglobin A1c results using the equation derived from a study of 507 normal and diabetic adults. Minority populations were underrepresented and children were not included. (Diabetes Care 31:1815-6922, 2008). The eAG is not equivalent to a fasting glucose. Blood specimen (specimen) 03/12/2019 2:48 PM CDT 03/12/2019 3:01 PM CDT Narrative [facility] - 03/12/2019 9:09 PM CDT us Jhonny Headley MD LAB BLOOD ORDERABLES Final R esult Performing Organization Address [facility] Co de Phone Number [facility] Department [place] [address] * DIGITAL MAMMOGRAPHY (11/04/2013 2:19 PM SECTION CHIEF) Anatomical Region Laterality Modality Breast Mammography 11/04/2013 2:19 PM SECTION CHIEF Narrative 11/04/2013 7:55 PM SECTION CHIEF Screening Mamm Bi Acc#: [id number] DATE OF EXAM: Nov 04 2013 CLINICAL [...] Joan - 03/17/2017 Screening Mamm Bi Acc#: [id number] DATE OF EXAM: Nov 04 2013 CLINICAL [...] was utilized in interpretation of these images. [facility] utilizes a reminder system to notify patients [...] KAVON COSBY us [facility] Provider MD SAINZ MAMMO PROCEDURES Yue l Result from Last 3 Months or Most Recently Relevant to Health Maintenance Insurance [employer] [facility] [place] [id number] Advance Directives For more information, please contact: [phone] * Full Code (Latest Code Status on File) Date Activated Date Inactivated Comments 03/12/2019 4:27 PM 03/17/2019 10:[address] Freight Brake Coupler Relationship Specialty [place] [id number] [address] PCP - General Family Practice 05/27/22 [place] [id number] [address] 03/12/19
[2025-07-14] MEDS: FLUCONAZOLE 150 MG TABLET PO (09:23)
[2025-07-14] MEDS: GABAPENTIN 300 MG CAPSULE 600 MG PO ×3 (09:23→21:59)
[2025-07-14] MEDS: ENOXAPARIN 40 MG/0.4 ML SYRINGE SUB-Q (09:23)
[2025-07-14] MEDS: NYSTATIN 100,000 UNITS/ML SUSP 5 ML ORAL.SUSP PO ×4 (09:23→21:59)
[2025-07-14 10:19] LABS: Free T4 Free Thyroxine Reflex 1.14 ng/dL (0.78-2.19)
[2025-07-14 11:42] LABS: Total Triiodothyronine (T3) 0.90 NG/ML (0.82-1.58)
[2025-07-14] MEDS: SODIUM CHLORIDE 0.9% IV 1,000 ML 100 ML IV CONT (14:28)
--- NOTE | 2025-07-14 14:35 | P.PNIM_ITS ---
Progress Note: A&P Assessment and Plan (1) Hypercalcemia: Code(s): E83.52 - Hypercalcemia Status: Acute Assessment and Plan: * 13.3-->13.0--11.2 * Etiology thought to be due to the use of Spironolactone and MVI to help replace hair loss 2/2 Mounjaro. * Continue aggressive hydration with NS at 200 ml/hr as pt has no hx of Heart Failure. * Trend labs and VS. * Telemetry (2) LILIAN (acute kidney injury): Code(s): N17.9 - Acute kidney failure, unspecified Status: Acute Assessment and Plan: * Baseline Cr is 0.8-1.2. cr today 1.97 * Etiology felt to be due to the Spironolactone that she has been taking for the past month for hair loss. * Continue IV hydration with NS at 100 ml/hr * Trend labs. (3) UTI (urinary tract infection): Code(s): N39.0 - Urinary tract infection, site not specified Status: Acute Assessment and Plan: * UA suspicious for UTI with noted 2+ Leukocyte Esterase, 51-100 WBCs and 4+ Bacteria. * Culture is pending. * Rocephin 1G daily. * Not meeting sepsis criteria. (4) Thrush, oral: Code(s): B37.0 - Candidal stomatitis Status: Acute Assessment and Plan: * Nystatin swish and swallow * Diflucan 150 mg daily for 7 days. (5) Asthma: Code(s): J45.909 - Unspecified asthma, uncomplicated Status: Chronic Assessment and Plan: * PRN Albuterol nebs as needed for wheezing/dyspnea. 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 * Hold Mounjaro. (7) Vitamin D deficiency: Code(s): E55.9 - Vitamin D deficiency, unspecified Status: Chronic Assessment and Plan: * Continue home supplementation once it has been verified and confirmed. (8) Peripheral neuropathy: Code(s): G62.9 - Polyneuropathy, unspecified Status: Chronic Assessment and Plan: * Continue Gabapentin. * Pt with hx of traumatic Right BKA. 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 Patient has been undergoing routine lab clearance for upcoming hiatal hernia surgery by Dr. Hernandez to be performed on August 03, 2025 at [facility]. In checking labs patient's calcium was initially noted to be elevated at 13.0. On recheck couple of days ago calcium was elevated at 13.3 and patient was sent to the emergency room today for management. Patient denies any chest pain, palpitations, muscle contractions, and no shortness of breath, nausea/vomiting/diarrhea. Patient does take supplementation of multivitamin, did recently take care skin and nails and she is taking spironolactone as a result of hair loss due to her use of Mounjaro. It is felt to be believed as she had no difficulty maintaining her calcium level prior at that the vitamins and spironolactone are contributing to her hypercalcemia. Patient also notes that at home her glucose has been running higher than usual and she had what she thought with thrush. She started taking nystatin prescribed by her primary care provider and it started improving so she stopped taking the nystatin. Patient states now she has a very sore tongue again that she describes as a burn and there is a thick plaque on it. She denies any fevers. In the emergency room workup was performed. Vital signs were noted to be normal, EKG showing normal sinus rhythm 85 beats per minute without any ectopy or ischemia. CBC is unremarkable. Metabolic panel is notable for creatinine of 2.22 and BUN of 27. This is above patient's baseline creatinine of 0.8-1.2 historically. Patient's calcium level noted to be 13.3. Ionized calcium is pending. Phosphorus is 4.1, lipase 67 in vitamin-D 104.0. In addition urinalysis shows 2+ leukocyte esterase, 51 to 100 wbc's and 4+ bacteria. Magnesium is checked to be 2.1. She is started on Rocephin 1 g daily for UTI, is on maintenance fluids of normal saline at 200 mL/hour for LILIAN and hypercalcemia and this is after receiving a 1 L bolus of normal saline in the ER . Patient will have in trending of her labs to include calcium, and renal function and she is being admitted on telemetry in the current setting for continued management. 07/14/25 Patient was seen and ermined at bedside. she is feeling fine, denies any chest pain, SOB.abd pain, N/V. Ca improving. contineu IVF for LILIAN and hypercalcemia. Continue Abx for possible UTI. Review of Systems Review of Systems: All systems reviewed & are unremarkable except as noted in HPI and below Exam Const: General: comfortable and no acute distress Other: Obese female pt lying supine on stretcher at this time in no acute distress. HENMT: Face/Nose/Sinus: Normal nares present Mouth: Yes Abnormal oral and palatal mucosa present (Thick, pale yellow plaque on tongue.) Eyes: General: appearance normal, both eyes and all related structures Neck: Neck: supple and no JVD Lymphatic: lymphadenopathy not noted Resp: Effort & Inspection: normal respiratory effort Auscultation: clear to auscultation bilaterally Cardio: Rate: regular rate Rhythm: regular rhythm Heart sounds: no gallops, no murmurs and no rubs GI: Auscultation: normal bowel sounds Skin: General skin exam: normal color, no rashes or lesions noted and no erythema Wounds: no wounds Neuro: Speech: normal speech Motor exam (neuro): Normal motor muscle tone present throughout and Abnormal motor strength present Extrem: Other: Right BKA, otherwise unremarkable Psych: Mental Status: mental status grossly normal Affect: normal affect Objective Data Vital Signs Vital Signs: Vital Signs - 24 hr 07/13/25 21:23 07/13/25 21:39 07/13/25 21:46 Temperature 98.2 F Pulse Rate 82 87 88 Respiratory Rate 20 18 11 L Blood Pressure 124/65 123/70 113/73 Pulse Oximetry 97 98 Oxygen Delivery 07/13/25 22:30 07/13/25 23:30 07/13/25 23:31 Temperature Pulse Rate 80 78 79 Respiratory Rate 18 20 20 Blood Pressure 111/69 Pulse Oximetry 96 98 98 Oxygen Delivery 07/14/25 00:00 07/14/25 00:49 07/14/25 01:55 Temperature 96.8 F L 96.8 F L Pulse Rate 80 80 Respiratory Rate 20 20 Blood Pressure 96/60 L 96/60 L Pulse Oximetry 94 94 Oxygen Delivery Room Air 07/14/25 04:00 07/14/25 04:51 Temperature 97.7 F Pulse Rate 73 73 Respiratory Rate 20 Blood Pressure 96/43 L Pulse Oximetry 93 Oxygen Delivery Intake/Output Intake/Output: Intake & Output 07/11/25 07/12/25 07/13/25 07/14/25 23:59 23:59 23:59 23:59 Intake Total 1000 480 Balance 1000 480 Meds/Results Medications: Active Medications Generic Name Dose Route Start Last Admin Trade Name Freq PRN Reason Stop Dose Admin Hydrocodone Bitart/Acetaminophen 1 tab 07/14/25 02:08 07/14/25 13:47 Hydrocodone/Acetaminophen (*Crx) 10-325 Mg Tablet PO 1 tab Q6H PRN Administration Pain Rated 7-10 Albuterol 2.5 mg 07/14/25 00:04 Albuterol Sulfate Neb 2.5 Mg/3 Ml Inh INHALATION Q4HRT PRN Shortness Of Breath Dextrose 12.5 gm 07/14/25 00:04 Dextrose 50% 25 Gm/50 Ml Syringe IV PUSH PRN PRN Hypoglycemia Protocol Enoxaparin Sodium 40 mg 07/14/25 09:00 07/14/25 09:23 Enoxaparin 40 Mg/0.4 Ml Syringe SUB-Q 40 mg DAILY AIDAN Administration Fluconazole 150 mg 07/14/25 09:00 07/14/25 09:23 Fluconazole 150 Mg Tablet PO 07/21/25 09:00 150 mg DAILY AIDAN Administration Gabapentin 600 mg 07/14/25 17:00 Gabapentin 300 Mg Capsule PO TID AIDAN Glucagon 1 mg 07/14/25 00:04 Glucagon For Inj 1 Mg Vial IM PRN PRN Hypoglycemia Protocol Glucose 15 gm 07/14/25 00:04 Glucose Oral Gel 15 Gm Of Glucse In 37.5 Gm Tube PO PRN PRN Hypoglycemia Protocol Ceftriaxone Sodium 1 gm/ 50 mls @ 100 mls/hr 07/13/25 23:50 07/14/25 00:19 Sodium Chloride IVPB 100 mls/hr HS AIDAN Administration Dextrose 1,000 mls @ 100 mls/hr 07/14/25 00:04 Dextrose 5% 1,000 Ml IVPB PRN PRN Hypoglycemia Protocol Sodium Chloride 1,000 mls @ 100 mls/hr 07/14/25 14:05 07/14/25 14:28 Normal Saline Iv IV CONT 100 mls/hr .Q10H AIDAN Administration Insulin Aspart 2 - 5 units 07/14/25 08:00 07/14/25 12:59 Insulin Aspart (*Bkc) 100 Units/Ml SUB-Q Not Given TIDWM AIDAN Protocol Insulin Aspart 1 - 2 units 07/14/25 21:00 Insulin Aspart (*Bkc) 100 Units/Ml SUB-Q HS AIDAN Protocol Nystatin 5 ml 07/14/25 09:00 07/14/25 13:47 Nystatin 100,000 Units/Ml Susp 5 Ml Oral.Susp PO 5 ml QID AIDAN Administration Polyethylene Glycol 17 gm 07/14/25 14:05 07/14/25 14:27 Polyethylene Glycol 3350 17 Gm Powd.Pack PO 17 gm QAM AIDAN Administration Radiology Results: ITS Impressions Chest X-Ray 07/14/25 09:40 IMPRESSION: 1. Small opacities in the lower lungs which represent atelectasis or infiltrates. Labs Labs: Laboratory Results - last 24 hr 07/13/25 07/13/25 07/13/25 21:48 21:48 21:48 WBC 9.5 RBC 4.84 Hgb 13.3 Hct 43.1 MCV 89.0 MCH 27.5 MCHC 30.9 L RDW 15.7 H Plt Count 257 D MPV 11.2 H Immature Gran % (Auto) 0.4 Neut % (Auto) 68.9 Lymph % (Auto) 20.8 [place] % (Auto) 8.9 H Eos % (Auto) 0.6 Baso % (Auto) 0.4 Lymph # (Auto) 1.98 [place] # (Auto) 0.9 H Eos # (Auto) 0.1 Baso # (Auto) 0.0 Abs Immat Gran (auto) 0.04 H Absolute Neuts (auto) 6.5 Absolute Nucleated RBC 0.000 Nucleated RBC % 0.0 Sodium Cancelled 137 Potassium Cancelled 4.2 Chloride Cancelled Carbon Dioxide Anion Gap BUN Creatinine Estim Creat Clear Calc Estimated GFR Glucose POC Capillary Glucose Hemoglobin A1c Calcium Phosphorus Magnesium Total Bilirubin AST ALT Alkaline Phosphatase Total Protein Albumin Lipase TSH (Reflex) Free T4 Total T3 PTH Intact Urine Color Urine Appearance Urine pH Ur Specific [place] Urine Protein Urine Glucose (UA) Urine Ketones Ur Blood (Man) Urine Nitrate Urine Bilirubin Urine Urobilinogen Leukocyte Esterase Rfl Urine RBC Urine WBC Ur Squamous Epith Cells Urine Bacteria Urine Casts 07/13/25 07/13/25 07/13/25 21:48 21:48 21:48 WBC RBC Hgb Hct MCV MCH MCHC RDW Plt Count MPV Immature Gran % (Auto) Neut % (Auto) Lymph % (Auto) [place] % (Auto) Eos % (Auto) Baso % (Auto) Lymph # (Auto) [place] # (Auto) Eos # (Auto) Baso # (Auto) Abs Immat Gran (auto) Absolute Neuts (auto) Absolute Nucleated RBC Nucleated RBC % Sodium Potassium Chloride 101 Carbon Dioxide Cancelled 29 Anion Gap Cancelled 7 BUN Cancelled Creatinine Estim Creat Clear Calc Estimated GFR Glucose POC Capillary Glucose Hemoglobin A1c Calcium Phosphorus Magnesium Total Bilirubin AST ALT Alkaline Phosphatase Total Protein Albumin Lipase TSH (Reflex) Free T4 Total T3 PTH Intact Urine Color Urine Appearance Urine pH Ur Specific [place] Urine Protein Urine Glucose (UA) Urine Ketones Ur Blood (Man) Urine Nitrate Urine Bilirubin Urine Urobilinogen Leukocyte Esterase Rfl Urine RBC Urine WBC Ur Squamous Epith Cells Urine Bacteria Urine Casts 07/13/25 07/13/25 07/13/25 21:48 21:48 21:48 WBC RBC Hgb Hct MCV MCH MCHC RDW Plt Count MPV Immature Gran % (Auto) Neut % (Auto) Lymph % (Auto) [place] % (Auto) Eos % (Auto) Baso % (Auto) Lymph # (Auto) [place] # (Auto) Eos # (Auto) Baso # (Auto) Abs Immat Gran (auto) Absolute Neuts (auto) Absolute Nucleated RBC Nucleated RBC % Sodium Potassium Chloride Carbon Dioxide Anion Gap BUN 27 H Creatinine Cancelled 2.22 H Estim Creat Clear Calc Cancelled 34 Estimated GFR Cancelled Glucose POC Capillary Glucose Hemoglobin A1c Calcium Phosphorus Magnesium Total Bilirubin AST ALT Alkaline Phosphatase Total Protein Albumin Lipase TSH (Reflex) Free T4 Total T3 PTH Intact Urine Color Urine Appearance Urine pH Ur Specific [place] Urine Protein Urine Glucose (UA) Urine Ketones Ur Blood (Man) Urine Nitrate Urine Bilirubin Urine Urobilinogen Leukocyte Esterase Rfl Urine RBC Urine WBC Ur Squamous Epith Cells Urine Bacteria Urine Casts 07/13/25 07/13/25 07/13/25 21:48 21:48 21:48 WBC RBC Hgb Hct MCV MCH MCHC RDW Plt Count MPV Immature Gran % (Auto) Neut % (Auto) Lymph % (Auto) [place] % (Auto) Eos % (Auto) Baso % (Auto) Lymph # (Auto) [place] # (Auto) Eos # (Auto) Baso # (Auto) Abs Immat Gran (auto) Absolute Neuts (auto) Absolute Nucleated RBC Nucleated RBC % Sodium Potassium Chloride Carbon Dioxide Anion Gap BUN Creatinine Estim Creat Clear Calc Estimated GFR 22 L Glucose Cancelled 140 H POC Capillary Glucose Hemoglobin A1c 7.9 H Calcium Cancelled 13.0 H* Phosphorus Cancelled Magnesium Total Bilirubin AST ALT Alkaline Phosphatase Total Protein Albumin Lipase TSH (Reflex) Free T4 Total T3 PTH Intact Urine Color Urine Appearance Urine pH Ur Specific [place] Urine Protein Urine Glucose (UA) Urine Ketones Ur Blood (Man) Urine Nitrate Urine Bilirubin Urine Urobilinogen Leukocyte Esterase Rfl Urine RBC Urine WBC Ur Squamous Epith Cells Urine Bacteria Urine Casts 07/13/25 07/13/25 07/13/25 21:48 21:48 21:48 WBC RBC Hgb Hct MCV MCH MCHC RDW Plt Count MPV Immature Gran % (Auto) Neut % (Auto) Lymph % (Auto) [place] % (Auto) Eos % (Auto) Baso % (Auto) Lymph # (Auto) [place] # (Auto) Eos # (Auto) Baso # (Auto) Abs Immat Gran (auto) Absolute Neuts (auto) Absolute Nucleated RBC Nucleated RBC % Sodium Potassium Chloride Carbon Dioxide Anion Gap BUN Creatinine Estim Creat Clear Calc Estimated GFR Glucose POC Capillary Glucose Hemoglobin A1c Calcium Phosphorus 4.1 Magnesium 2.1 Total Bilirubin Cancelled 0.7 AST Cancelled 29 ALT Cancelled Alkaline Phosphatase Total Protein Albumin Lipase TSH (Reflex) Free T4 Total T3 PTH Intact Urine Color Urine Appearance Urine pH Ur Specific [place] Urine Protein Urine Glucose (UA) Urine Ketones Ur Blood (Man) Urine Nitrate Urine Bilirubin Urine Urobilinogen Leukocyte Esterase Rfl Urine RBC Urine WBC Ur Squamous Epith Cells Urine Bacteria Urine Casts 07/13/25 07/13/25 07/13/25 21:48 21:48 21:48 WBC RBC Hgb Hct MCV MCH MCHC RDW Plt Count MPV Immature Gran % (Auto) Neut % (Auto) Lymph % (Auto) [place] % (Auto) Eos % (Auto) Baso % (Auto) Lymph # (Auto) [place] # (Auto) Eos # (Auto) Baso # (Auto) Abs Immat Gran (auto) Absolute Neuts (auto) Absolute Nucleated RBC Nucleated RBC % Sodium Potassium Chloride Carbon Dioxide Anion Gap BUN Creatinine Estim Creat Clear Calc Estimated GFR Glucose POC Capillary Glucose Hemoglobin A1c Calcium Phosphorus Magnesium Total Bilirubin AST ALT 26 Alkaline Phosphatase Cancelled 70 Total Protein Cancelled 8.5 H Albumin Cancelled Lipase TSH (Reflex) Free T4 Total T3 PTH Intact Urine Color Urine Appearance Urine pH Ur Specific [place] Urine Protein Urine Glucose (UA) Urine Ketones Ur Blood (Man) Urine Nitrate Urine Bilirubin Urine Urobilinogen Leukocyte Esterase Rfl Urine RBC Urine WBC Ur Squamous Epith Cells Urine Bacteria Urine Casts 07/13/25 07/13/25 07/14/25 21:48 23:21 05:37 WBC 6.0 RBC 3.98 L Hgb 11.1 L Hct 35.7 L MCV 89.7 MCH 27.9 MCHC 31.1 L RDW 15.5 H Plt Count 190 MPV 11.7 H Immature Gran % (Auto) 0.3 Neut % (Auto) 53.3 Lymph % (Auto) 34.4 [place] % (Auto) 10.3 H Eos % (Auto) 1.0 Baso % (Auto) 0.7 Lymph # (Auto) 2.07 [place] # (Auto) 0.6 Eos # (Auto) 0.1 Baso # (Auto) 0.0 Abs Immat Gran (auto) 0.02 Absolute Neuts (auto) 3.2 Absolute Nucleated RBC 0.000 Nucleated RBC % 0.0 Sodium 137 Potassium 3.7 Chloride 106 Carbon Dioxide 28 Anion Gap 3 L BUN 26 H Creatinine 1.97 H Estim Creat Clear Calc 38 Estimated GFR 26 L Glucose 122 H POC Capillary Glucose Hemoglobin A1c Calcium 11.2 H Phosphorus Magnesium 2.1 Total Bilirubin 0.5 AST 23 ALT 17 Alkaline Phosphatase 57 Total Protein 6.4 Albumin 4.3 3.2 L Lipase 67 TSH (Reflex) 5.140 H Free T4 1.14 Total T3 0.90 PTH Intact < 14.5 L Urine Color Yellow Urine Appearance Cloudy H Urine pH 6.5 Ur Specific [place] 1.012 Urine Protein Negative Urine Glucose (UA) 3+ H Urine Ketones Negative Ur Blood (Man) Negative Urine Nitrate Negative Urine Bilirubin Negative Urine Urobilinogen 0.2 Leukocyte Esterase Rfl 2+ H Urine RBC 0-2 Urine WBC 51-100 H Ur Squamous Epith Cells Few Urine Bacteria 4+ Urine Casts 0-2 07/14/25 07/14/25 07:50 11:14 WBC RBC Hgb Hct MCV MCH MCHC RDW Plt Count MPV Immature Gran % (Auto) Neut % (Auto) Lymph % (Auto) [place] % (Auto) Eos % (Auto) Baso % (Auto) Lymph # (Auto) [place] # (Auto) Eos # (Auto) Baso # (Auto) Abs Immat Gran (auto) Absolute Neuts (auto) Absolute Nucleated RBC Nucleated RBC % Sodium Potassium Chloride Carbon Dioxide Anion Gap BUN Creatinine Estim Creat Clear Calc Estimated GFR Glucose POC Capillary Glucose 103 115 H Hemoglobin A1c Calcium Phosphorus Magnesium Total Bilirubin AST ALT Alkaline Phosphatase Total Protein Albumin Lipase TSH (Reflex) Free T4 Total T3 PTH Intact Urine Color Urine Appearance Urine pH Ur Specific [place] Urine Protein Urine Glucose (UA) Urine Ketones Ur Blood (Man) Urine Nitrate Urine Bilirubin Urine Urobilinogen Leukocyte Esterase Rfl Urine RBC Urine WBC Ur Squamous Epith Cells Urine Bacteria Urine Casts Quality VTE Prophylaxis VTE prophylaxis: pharmacologic ordered
[2025-07-14] MEDS: PANTOPRAZOLE 40 MG TABLET PO (17:08)
[2025-07-14] MEDS: ROSUVASTATIN 5 MG TABLET PO (17:18)
[2025-07-15] VITALS (10 sets, daily range): BP systolic 105–128; BP diastolic 61–66; PULSE 72–81; RESP 18–20; TEMP 35.9–36.6; O2SAT 90–99
[2025-07-15] MEDS: HYDROcodone/acetaminophen (*CRX) 10-325 MG TABLET 1 TAB PO ×3 (03:53→22:56)
[2025-07-15] MEDS: SODIUM CHLORIDE 0.9% IV 1,000 ML 100 ML IV CONT ×2 (03:57→14:59)
[2025-07-15 06:27] LABS: Hematocrit 35.5 % (37.0-47.0); Hemoglobin 10.9 g/dL (12.0-15.0); Mean Corpuscular HGB Conc 30.7 g/dl (32-36); Mean Corpuscular Hemoglobin 27.9 pg (26-34); Mean Corpuscular Volume 90.8 fl (80-100); Platelet Count Result 187 k/mm3 (150-375); Red Blood Count 3.91 M/mm3 (4.2-5.4); White Blood Count 5.3 K/mm3 (4.5-10.0)
[2025-07-15 06:55] LABS: Anion Gap 4 mmol/L (4-12); Blood Urea Nitrogen 22 mg/dL (7-17); Calcium 9.8 mg/dL (8.4-10.2); Carbon Dioxide 27 mmol/L (22-30); Chloride 107 mmol/L (98-107); Estimated CRCL calculation 45 ml/min; Estimated Glomerular Filt Rate 31; Glucose 118 mg/dL (65-110); Potassium 3.8 mmol/L (3.4-5.0); Sodium 138 mmol/L (137-145)
[2025-07-15] MEDS: GABAPENTIN 300 MG CAPSULE 600 MG PO ×3 (07:47→21:15)
--- NOTE | 2025-07-15 08:38 | P.PNIM_ITS ---
Progress Note: A&P Assessment and Plan (1) Hypercalcemia: Code(s): E83.52 - Hypercalcemia Status: Acute Assessment and Plan: * 13.3-->13.0--11.2 * Etiology thought to be due to dehydration caused by Mounjaro * Hold spironolactone due to LILIAN * Continue aggressive hydration with NS at 200 ml/hr as pt has no hx of Heart Failure. * Trend labs and VS. * Telemetry (2) LILIAN (acute kidney injury): Code(s): N17.9 - Acute kidney failure, unspecified Status: Acute Assessment and Plan: * Baseline Cr is 0.8-1.2. cr today 1.97 * Etiology felt to be due to the Spironolactone that she has been taking for the past month for hair loss. * Continue IV hydration with NS at 100 ml/hr * Trend labs. (3) UTI (urinary tract infection): Code(s): N39.0 - Urinary tract infection, site not specified Status: Acute Assessment and Plan: * UA suspicious for UTI with noted 2+ Leukocyte Esterase, 51-100 WBCs and 4+ Bacteria. * Culture is pending. * Rocephin 1G daily. * Not meeting sepsis criteria. (4) Thrush, oral: Code(s): B37.0 - Candidal stomatitis Status: Acute Assessment and Plan: * Nystatin swish and swallow * Diflucan 150 mg daily for 7 days. (5) Asthma: Code(s): J45.909 - Unspecified asthma, uncomplicated Status: Chronic Assessment and Plan: * PRN Albuterol nebs as needed for wheezing/dyspnea. (6) Diabetes: Qualifiers: Diabetes mellitus complication status: without complication Diabetes mellitus [facility] insulin use: with [facility] use Diabetes mellitus type: type 2 Qualified Code(s): E11.9 - Type 2 diabetes mellitus without complications; Z79.4 - [facility] (current) use of insulin Code(s): E11.9 - Type 2 diabetes mellitus without complications Status: Chronic Assessment and Plan: * Adult SSI protocol * Hypoglycemic protocol * Glucose checks AC and HS * Diabetic diet * Check A1C * Hold oral hypoglycemics. * Hold Mounjaro. (7) Vitamin D deficiency: Code(s): E55.9 - Vitamin D deficiency, unspecified Status: Chronic Assessment and Plan: * Continue home supplementation once it has been verified and confirmed. (8) Peripheral neuropathy: Code(s): G62.9 - Polyneuropathy, unspecified Status: Chronic Assessment and Plan: * Continue Gabapentin. * Pt with hx of traumatic Right BKA. 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 Patient has been undergoing routine lab clearance for upcoming hiatal hernia surgery by Dr. Hernandez to be performed on August 03, 2025 at [facility]. In checking labs patient's calcium was initially noted to be elevated at 13.0. On recheck couple of days ago calcium was elevated at 13.3 and patient was sent to the emergency room today for management. Patient denies any chest pain, palpitations, muscle contractions, and no shortness of breath, nausea/vomiting/diarrhea. Patient does take supplementation of multivitamin, did recently take care skin and nails and she is taking spironolactone as a result of hair loss due to her use of Mounjaro. It is felt to be believed as she had no difficulty maintaining her calcium level prior at that the vitamins and spironolactone are contributing to her hypercalcemia. Patient also notes that at home her glucose has been running higher than usual and she had what she thought with thrush. She started taking nystatin prescribed by her primary care provider and it started improving so she stopped taking the nystatin. Patient states now she has a very sore tongue again that she describes as a burn and there is a thick plaque on it. She denies any fevers. In the emergency room workup was performed. Vital signs were noted to be normal, EKG showing normal sinus rhythm 85 beats per minute without any ectopy or ischemia. CBC is unremarkable. Metabolic panel is notable for creatinine of 2.22 and BUN of 27. This is above patient's baseline creatinine of 0.8-1.2 historically. Patient's calcium level noted to be 13.3. Ionized calcium is pending. Phosphorus is 4.1, lipase 67 in vitamin-D 104.0. In addition urinalysis shows 2+ leukocyte esterase, 51 to 100 wbc's and 4+ bacteria. Magnesium is checked to be 2.1. She is started on Rocephin 1 g daily for UTI, is on maintenance fluids of normal saline at 200 mL/hour for LILIAN and hypercalcemia and this is after receiving a 1 L bolus of normal saline in the ER. Patient will have in trending of her labs to include calcium, and renal function and she is being admitted on telemetry in the current setting for continued management. 07/14/25 Patient was seen and ermined at bedside. she is feeling fine, denies any chest pain, SOB.abd pain, N/V. Ca improving. contineu IVF for LILIAN and hypercalcemia. Continue Abx for possible UTI. 07/15: Patient is currently doing well. Will continue the IV fluids. Creatinine and calcium continues to improve. Discussed with help desk representative who agrees with the plan. Increase in the creatinine and calcium possibly due to dehydration caused by Wegovy. Continue holding spironolactone Review of Systems Review of Systems: All systems reviewed & are unremarkable except as noted in HPI and below Exam Const: General: comfortable and no acute distress Other: Obese female pt lying supine on stretcher at this time in no acute distress. HENMT: Face/Nose/Sinus: Normal nares present Mouth: Yes Abnormal oral and palatal mucosa present (Thick, pale yellow plaque on tongue.) Eyes: General: appearance normal, both eyes and all related structures Neck: Neck: supple and no JVD Lymphatic: lymphadenopathy not noted Resp: Effort & Inspection: normal respiratory effort Auscultation: clear to auscultation bilaterally Cardio: Rate: regular rate Rhythm: regular rhythm Heart sounds: no gallops, no murmurs and no rubs GI: Auscultation: normal bowel sounds Skin: General skin exam: normal color, no rashes or lesions noted and no erythema Wounds: no wounds Neuro: Speech: normal speech Motor exam (neuro): Normal motor muscle tone present throughout and Abnormal motor strength present Extrem: Other: Right BKA, otherwise unremarkable Psych: Mental Status: mental status grossly normal Affect: normal affect Objective Data Vital Signs Vital Signs: Vital Signs - 24 hr 07/14/25 12:05 07/14/25 14:00 07/14/25 16:01 Temperature 97.1 F L Pulse Rate 76 74 75 Respiratory Rate 18 Blood Pressure 107/65 Pulse Oximetry 98 Oxygen Delivery 07/14/25 20:00 07/14/25 20:00 07/14/25 22:00 Temperature 97.8 F Pulse Rate 80 84 Respiratory Rate 18 Blood Pressure 124/69 Pulse Oximetry 99 Oxygen Delivery Room Air 07/15/25 00:00 07/15/25 04:00 07/15/25 06:00 Temperature 97.9 F Pulse Rate 79 72 81 Respiratory Rate 18 Blood Pressure 128/61 Pulse Oximetry 99 Oxygen Delivery Intake/Output Intake/Output: Intake & Output 07/12/25 07/13/25 07/14/25 07/15/25 23:59 23:59 23:59 23:59 Intake Total 1000 1060 1550 Balance 1000 1060 1550 Meds/Results Medications: Active Medications Generic Name Dose Route Start Last Admin Trade Name Freq PRN Reason Stop Dose Admin Hydrocodone Bitart/Acetaminophen 1 tab 07/14/25 02:08 07/15/25 03:53 Hydrocodone/Acetaminophen (*Crx) 10-325 Mg Tablet PO 1 tab Q6H PRN Administration Pain Rated 7-10 Albuterol 2.5 mg 07/14/25 00:04 Albuterol Sulfate Neb 2.5 Mg/3 Ml Inh INHALATION Q4HRT PRN Shortness Of Breath Alprazolam 0.5 mg 07/14/25 14:48 Alprazolam (*Crx) 0.5 Mg Tablet PO TID PRN Anxiety Azelastine HCl 1 spray 07/14/25 21:00 07/14/25 21:59 Azelastine Hcl Nasal 0.1% 137 Mcg/Spr 30 Ml Btl NASAL Not Given Q12HR AIDAN Dextrose 12.5 gm 07/14/25 00:04 Dextrose 50% 25 Gm/50 Ml Syringe IV PUSH PRN PRN Hypoglycemia Protocol Enoxaparin Sodium 40 mg 07/14/25 09:00 07/14/25 09:23 Enoxaparin 40 Mg/0.4 Ml Syringe SUB-Q 40 mg DAILY AIDAN Administration Famotidine 20 mg 07/15/25 09:00 Famotidine 20 Mg Tablet PO DAILY AIDAN Fluconazole 150 mg 07/14/25 09:00 07/14/25 09:23 Fluconazole 150 Mg Tablet PO 07/21/25 09:00 150 mg DAILY AIDAN Administration Gabapentin 600 mg 07/14/25 22:00 07/15/25 07:47 Gabapentin 300 Mg Capsule PO 600 mg 0700,1400,2100 AIDAN Administration Glucagon 1 mg 07/14/25 00:04 Glucagon For Inj 1 Mg Vial IM PRN PRN Hypoglycemia Protocol Glucose 15 gm 07/14/25 00:04 Glucose Oral Gel 15 Gm Of Glucse In 37.5 Gm Tube PO PRN PRN Hypoglycemia Protocol Ceftriaxone Sodium 1 gm/ 50 mls @ 100 mls/hr 07/13/25 23:50 07/14/25 22:28 Sodium Chloride IVPB Infused HS AIDAN Infusion Dextrose 1,000 mls @ 100 mls/hr 07/14/25 00:04 Dextrose 5% 1,000 Ml IVPB PRN PRN Hypoglycemia Protocol Sodium Chloride 1,000 mls @ 100 mls/hr 07/14/25 14:05 07/15/25 03:57 Normal Saline Iv IV CONT 100 mls/hr .Q10H AIDAN Administration Insulin Aspart 2 - 5 units 07/14/25 08:00 07/14/25 17:07 Insulin Aspart (*Bkc) 100 Units/Ml SUB-Q Not Given TIDWM AIDAN Protocol Insulin Aspart 1 - 2 units 07/14/25 21:00 07/14/25 22:00 Insulin Aspart (*Bkc) 100 Units/Ml SUB-Q Not Given HS AIDAN Protocol Loratadine 10 mg 07/15/25 09:00 Loratadine 10 Mg Tablet PO DAILY AIDAN Nystatin 5 ml 07/14/25 09:00 07/14/25 21:59 Nystatin 100,000 Units/Ml Susp 5 Ml Oral.Susp PO 5 ml QID AIDAN Administration Pantoprazole Sodium 40 mg 07/14/25 17:00 07/14/25 17:08 Pantoprazole 40 Mg Tablet PO 40 mg BID AIDAN Administration Polyethylene Glycol 17 gm 07/14/25 14:05 07/14/25 14:27 Polyethylene Glycol 3350 17 Gm Powd.Pack PO 17 gm QAM AIDAN Administration Rosuvastatin Calcium 5 mg 07/14/25 18:00 07/14/25 17:18 Rosuvastatin 5 Mg Tablet PO 5 mg EVENING AIDAN Administration Radiology Results: ITS Impressions Chest X-Ray 07/14/25 09:40 IMPRESSION: 1. Small opacities in the lower lungs which represent atelectasis or infiltrates. Labs Labs: Laboratory Results - last 24 hr 07/14/25 07/14/25 07/14/25 05:37 11:14 16:45 WBC RBC Hgb Hct MCV MCH MCHC RDW Plt Count MPV Sodium Potassium Chloride Carbon Dioxide Anion Gap BUN Creatinine Estim Creat Clear Calc Estimated GFR Glucose POC Capillary Glucose 115 H 120 H Calcium Free T4 1.14 Total T3 0.90 07/14/25 07/15/25 07/15/25 20:59 06:12 08:13 WBC 5.3 RBC 3.91 L Hgb 10.9 L Hct 35.5 L MCV 90.8 MCH 27.9 MCHC 30.7 L RDW 15.6 H Plt Count 187 MPV 11.1 H Sodium 138 Potassium 3.8 Chloride 107 Carbon Dioxide 27 Anion Gap 4 BUN 22 H Creatinine 1.66 H Estim Creat Clear Calc 45 Estimated GFR 31 L Glucose 118 H POC Capillary Glucose 141 H 91 Calcium 9.8 Free T4 Total T3 Quality VTE Prophylaxis VTE prophylaxis: pharmacologic ordered Hospitalist MIPS Advance Care Plan I have confirmed that the patient's Advanced Care Plan is present, code status is documented, or surrogate decision maker is listed in patient medical record.: Yes Medication Reconciliation I have utilized all available resources to obtain, update and review the patients current medications (includes all prescriptions, OTC, herbals, cannabis, and nutritional supplements).: Yes
[2025-07-15] MEDS: PANTOPRAZOLE 40 MG TABLET PO ×2 (08:50→18:19)
[2025-07-15] MEDS: FAMOTIDINE 20 MG TABLET PO (08:50)
[2025-07-15] MEDS: LORATADINE 10 MG TABLET PO (08:50)
[2025-07-15] MEDS: NYSTATIN 100,000 UNITS/ML SUSP 5 ML ORAL.SUSP PO ×4 (08:50→21:16)
[2025-07-15] MEDS: ENOXAPARIN 40 MG/0.4 ML SYRINGE SUB-Q (08:51)
[2025-07-15] MEDS: BISACODYL 5 MG TABLET EC PO (10:14)
[2025-07-15] MEDS: FLUCONAZOLE 150 MG TABLET PO (10:14)
[2025-07-15 14:08] LABS: Calcium, Ionized 6.5 mg/dL (4.5-5.6)
[2025-07-15] MEDS: ROSUVASTATIN 5 MG TABLET PO (18:19)
[2025-07-15] MEDS: cefTRIAXone 1 GM in SODIUM CHLORIDE 0.9% IV 50 ML 100 ML IVPB (21:16)
[2025-07-16] VITALS (10 sets, daily range): BP systolic 101–121; BP diastolic 70–82; PULSE 69–82; RESP 18–20; TEMP 35.9–36.9; O2SAT 97–100
[2025-07-16] MEDS: FAMOTIDINE 20 MG TABLET PO ×2 (04:35→08:15)
[2025-07-16 06:01] LABS: Hematocrit 38.0 % (37.0-47.0); Hemoglobin 11.6 g/dL (12.0-15.0); Mean Corpuscular HGB Conc 30.5 g/dl (32-36); Mean Corpuscular Hemoglobin 27.8 pg (26-34); Mean Corpuscular Volume 91.1 fl (80-100); Platelet Count Result 211 k/mm3 (150-375); Red Blood Count 4.17 M/mm3 (4.2-5.4); White Blood Count 6.9 K/mm3 (4.5-10.0)
[2025-07-16 06:19] LABS: Alanine Aminotransferase 17 U/L (6-35); Albumin Level 3.5 g/dL (3.5-5.1); Alkaline Phosphatase 60 U/L (38-126); Anion Gap 6 mmol/L (4-12); Aspartate Amino Transferase 23 U/L (14-36); Bilirubin,Total 0.4 mg/dL (0.2-1.3); Blood Urea Nitrogen 21 mg/dL (7-17); Calcium 9.7 mg/dL (8.4-10.2); Carbon Dioxide 25 mmol/L (22-30); Chloride 106 mmol/L (98-107); Estimated CRCL calculation 50 ml/min; Estimated Glomerular Filt Rate 35; Glucose 121 mg/dL (65-110); Potassium 4.0 mmol/L (3.4-5.0); Sodium 137 mmol/L (137-145); Total Protein 6.8 g/dL (6.3-8.2)
[2025-07-16] MEDS: GABAPENTIN 300 MG CAPSULE 600 MG PO ×3 (07:01→20:49)
[2025-07-16] MEDS: HYDROcodone/acetaminophen (*CRX) 10-325 MG TABLET 1 TAB PO ×3 (08:15→21:08)
[2025-07-16] MEDS: PANTOPRAZOLE 40 MG TABLET PO ×2 (08:15→16:58)
[2025-07-16] MEDS: LORATADINE 10 MG TABLET PO (08:15)
[2025-07-16] MEDS: NYSTATIN 100,000 UNITS/ML SUSP 5 ML ORAL.SUSP PO ×4 (08:17→20:50)
--- NOTE | 2025-07-16 08:54 | PM.IMPN ---
Progress Note: A&P Assessment and Plan (1) Hypercalcemia: Code(s): E83.52 - Hypercalcemia Status: Acute Assessment and Plan: 13.3-->13.0--11.2 Etiology thought to be due to dehydration caused by Mounjaro vs spironolactone Hold spironolactone due to LILIAN Hold fluids for possible discharge tomorrow Trend labs and VS. Telemetry (2) LILIAN (acute kidney injury): Code(s): N17.9 - Acute kidney failure, unspecified Status: Acute Assessment and Plan: Baseline Cr is 0.8-1.2. cr today 1.51 Etiology thought to be due to dehydration caused by Mounjaro vs spironolactone Encourage p.o. intake Possible discharge (3) UTI (urinary tract infection): Code(s): N39.0 - Urinary tract infection, site not specified Status: Acute Assessment and Plan: UA suspicious for UTI with noted 2+ Leukocyte Esterase, 51-100 WBCs and 4+ Bacteria. Culture is pending. Rocephin 1G daily. Not meeting sepsis criteria. (4) Thrush, oral: Code(s): B37.0 - Candidal stomatitis Status: Acute Assessment and Plan: Nystatin swish and swallow Diflucan 150 mg daily for 7 days. (5) Asthma: Code(s): J45.909 - Unspecified asthma, uncomplicated Status: Chronic Assessment and Plan: PRN Albuterol nebs as needed for wheezing/dyspnea. 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 Hold Mounjaro. (7) Vitamin D deficiency: Code(s): E55.9 - Vitamin D deficiency, unspecified Status: Chronic Assessment and Plan: Continue home supplementation once it has been verified and confirmed. (8) Peripheral neuropathy: Code(s): G62.9 - Polyneuropathy, unspecified Status: Chronic Assessment and Plan: Continue Gabapentin. Pt with hx of traumatic Right BKA. Plan Full code Garrett Subjective Date/time seen: 07/16/25 08:54 Interval history: Patient's creatinine and calcium trending down. Will dc the fluid late afternoon and encourage p.o. fluid. As mentioned previously possible dehydration due to Mounjaro. Possible discharge tomorrow Review of Systems Review of Systems: All systems reviewed & are unremarkable except as noted in HPI and below Exam Const: General: comfortable and no acute distress Other: Obese female pt lying supine on stretcher at this time in no acute distress. HENMT: Face/Nose/Sinus: Normal nares present Mouth: Yes Abnormal oral and palatal mucosa present (Thick, pale yellow plaque on tongue.) Eyes: General: appearance normal, both eyes and all related structures Neck: Neck: supple and no JVD Lymphatic: lymphadenopathy not noted Resp: Effort & Inspection: normal respiratory effort Auscultation: clear to auscultation bilaterally Cardio: Rate: regular rate Rhythm: regular rhythm Heart sounds: no gallops, no murmurs and no rubs GI: Auscultation: normal bowel sounds Skin: General skin exam: normal color, no rashes or lesions noted and no erythema Wounds: no wounds Neuro: Speech: normal speech Motor exam (neuro): Normal motor muscle tone present throughout and Abnormal motor strength present Extrem: Other: Right BKA, otherwise unremarkable Psych: Mental Status: mental status grossly normal Affect: normal affect Objective Data Vital Signs Vital Signs: Vital Signs - 24 hr 07/15/25 12:06 07/15/25 14:00 07/15/25 16:02 Temperature 96.6 F L Pulse Rate 75 73 72 Respiratory Rate 18 Blood Pressure 120/64 Pulse Oximetry 96 Oxygen Delivery 07/15/25 20:00 07/15/25 21:51 07/15/25 22:09 Temperature 97.9 F Pulse Rate 72 72 Respiratory Rate 20 Blood Pressure 105/66 Pulse Oximetry 96 90 Oxygen Delivery Autopap 07/16/25 00:00 07/16/25 04:00 07/16/25 05:58 Temperature 97.8 F Pulse Rate 82 73 72 Respiratory Rate 20 Blood Pressure 113/72 Pulse Oximetry 97 Oxygen Delivery Intake/Output Intake/Output: Intake & Output 07/13/25 07/14/25 07/15/25 07/16/25 23:59 23:59 23:59 23:59 Intake Total 1000 1060 3130 225 Balance 1000 1060 3130 225 Meds/Results Medications: Active Medications Generic Name Dose Route Start Last Admin Trade Name Freq PRN Reason Stop Dose Admin Hydrocodone Bitart/Acetaminophen 1 tab 07/14/25 02:08 07/16/25 08:15 Hydrocodone/Acetaminophen (*Crx) 10-325 Mg Tablet PO 1 tab Q6H PRN Administration Pain Rated 7-10 Albuterol 2.5 mg 07/14/25 00:04 Albuterol Sulfate Neb 2.5 Mg/3 Ml Inh INHALATION Q4HRT PRN Shortness Of Breath Alprazolam 0.5 mg 07/14/25 14:48 Alprazolam (*Crx) 0.5 Mg Tablet PO TID PRN Anxiety Azelastine HCl 1 spray 07/14/25 21:00 07/16/25 08:18 Azelastine Hcl Nasal 0.1% 137 Mcg/Spr 30 Ml Btl NASAL Not Given Q12HR AIDAN Dextrose 12.5 gm 07/14/25 00:04 Dextrose 50% 25 Gm/50 Ml Syringe IV PUSH PRN PRN Hypoglycemia Protocol Enoxaparin Sodium 40 mg 07/14/25 09:00 07/15/25 08:51 Enoxaparin 40 Mg/0.4 Ml Syringe SUB-Q 40 mg DAILY AIDAN Administration Famotidine 20 mg 07/16/25 04:30 07/16/25 08:15 Famotidine 20 Mg Tablet PO 20 mg DAILY AIDAN Administration Fluconazole 150 mg 07/14/25 09:00 07/15/25 10:14 Fluconazole 150 Mg Tablet PO 07/21/25 09:00 150 mg DAILY AIDAN Administration Gabapentin 600 mg 07/14/25 22:00 07/16/25 07:01 Gabapentin 300 Mg Capsule PO 600 mg 0700,1400,2100 AIDAN Administration Glucagon 1 mg 07/14/25 00:04 Glucagon For Inj 1 Mg Vial IM PRN PRN Hypoglycemia Protocol Glucose 15 gm 07/14/25 00:04 Glucose Oral Gel 15 Gm Of Glucse In 37.5 Gm Tube PO PRN PRN Hypoglycemia Protocol Ceftriaxone Sodium 1 gm/ 50 mls @ 100 mls/hr 07/13/25 23:50 07/15/25 21:46 Sodium Chloride IVPB 100 mls/hr HS AIDAN Infusion Dextrose 1,000 mls @ 100 mls/hr 07/14/25 00:04 Dextrose 5% 1,000 Ml IVPB PRN PRN Hypoglycemia Protocol Sodium Chloride 1,000 mls @ 100 mls/hr 07/15/25 13:30 07/15/25 23:30 Normal Saline Iv IV CONT Not Given .Q10H AIDAN Insulin Aspart 2 - 5 units 07/14/25 08:00 07/16/25 08:18 Insulin Aspart (*Bkc) 100 Units/Ml SUB-Q Not Given TIDWM AIDAN Protocol Insulin Aspart 1 - 2 units 07/14/25 21:00 07/15/25 21:00 Insulin Aspart (*Bkc) 100 Units/Ml SUB-Q Not Given HS [facility] Protocol Loratadine 10 mg 07/15/25 09:00 07/16/25 08:15 Loratadine 10 Mg Tablet PO 10 mg DAILY AIDAN Administration Nystatin 5 ml 07/14/25 09:00 07/16/25 08:17 Nystatin 100,000 Units/Ml Susp 5 Ml Oral.Susp PO 5 ml QID AIDAN Administration Pantoprazole Sodium 40 mg 07/14/25 17:00 07/16/25 08:15 Pantoprazole 40 Mg Tablet PO 40 mg BID AIDAN Administration Polyethylene Glycol 17 gm 07/14/25 14:05 07/15/25 08:50 Polyethylene Glycol 3350 17 Gm Powd.Pack PO Not Given QAM AIDAN Rosuvastatin Calcium 5 mg 07/14/25 18:00 07/15/25 18:19 Rosuvastatin 5 Mg Tablet PO 5 mg EVENING AIDAN Administration Radiology Results: ITS Impressions Chest X-Ray 07/14/25 09:40 IMPRESSION: 1. Small opacities in the lower lungs which represent atelectasis or infiltrates. Renal Ultrasound 07/15/25 18:16 Impression: 1: Unremarkable renal ultrasound. No stones, masses or hydronephrosis. Labs Labs: Laboratory Results - last 24 hr 07/13/25 07/15/25 07/15/25 21:48 11:45 15:46 WBC RBC Hgb Hct MCV MCH MCHC RDW Plt Count MPV Sodium Potassium Chloride Carbon Dioxide Anion Gap BUN Creatinine Estim Creat Clear Calc Estimated GFR Glucose POC Capillary Glucose 163 H 135 H Calcium Ionized Calcium 6.5 H Total Bilirubin AST ALT Alkaline Phosphatase Total Protein Albumin 07/15/25 07/16/2507/16/25 21:18 05:30 07:35 WBC 6.9 RBC 4.17 L Hgb 11.6 L Hct 38.0 MCV 91.1 MCH 27.8 MCHC 30.5 L RDW 15.4 H Plt Count 211 MPV 11.5 H Sodium 137 Potassium 4.0 Chloride 106 Carbon Dioxide 25 Anion Gap 6 BUN 21 H Creatinine 1.51 H Estim Creat Clear Calc 50 Estimated GFR 35 L Glucose 121 H POC Capillary Glucose 117 H 110 H Calcium 9.7 Ionized Calcium Total Bilirubin 0.4 AST 23 ALT 17 Alkaline Phosphatase 60 Total Protein 6.8 Albumin 3.5 Quality VTE Prophylaxis VTE prophylaxis: pharmacologic ordered Hospitalist [facility] Advance Care Plan I have confirmed that the patient's Advanced Care Plan is present, code status is documented, or surrogate decision maker is listed in patient medical record.: Yes Medication Reconciliation I have utilized all available resources to obtain, update and review the patients current medications (includes all prescriptions, OTC, herbals, cannabis, and nutritional supplements).: Yes
[2025-07-16] MEDS: FLUCONAZOLE 150 MG TABLET PO (09:49)
[2025-07-16] MEDS: ENOXAPARIN 40 MG/0.4 ML SYRINGE SUB-Q (09:50)
[2025-07-16] MEDS: CYCLOBENZAPRINE HCL 5 MG TABLET PO (13:09)
[2025-07-16] MEDS: ROSUVASTATIN 5 MG TABLET PO (17:02)
[2025-07-16] MEDS: cefTRIAXone 1 GM in SODIUM CHLORIDE 0.9% IV 50 ML 100 ML IVPB (20:48)
[2025-07-16] MEDS: AZELASTINE HCL NASAL 0.1% 137 MCG/SPR 30 ML BTL 1 SPRAY NASAL (20:51)
[2025-07-17] VITALS: PULSE 71
[2025-07-17 04:00] VITALS: PULSE 70
[2025-07-17 06:00] VITALS: BP 94/60; PULSE 67; RESP 20; TEMP 36.5; O2SAT 98
[2025-07-17] MEDS: GABAPENTIN 300 MG CAPSULE 600 MG PO (06:00)
[2025-07-17 06:06] LABS: Hematocrit 38.2 % (37.0-47.0); Hemoglobin 11.9 g/dL (12.0-15.0); Mean Corpuscular HGB Conc 31.2 g/dl (32-36); Mean Corpuscular Hemoglobin 27.8 pg (26-34); Mean Corpuscular Volume 89.3 fl (80-100); Platelet Count Result 212 k/mm3 (150-375); Red Blood Count 4.28 M/mm3 (4.2-5.4); White Blood Count 5.9 K/mm3 (4.5-10.0)
[2025-07-17 06:08] LABS: Alanine Aminotransferase 19 U/L (6-35); Albumin Level 3.5 g/dL (3.5-5.1); Alkaline Phosphatase 53 U/L (38-126); Anion Gap 7 mmol/L (4-12); Aspartate Amino Transferase 31 U/L (14-36); Bilirubin,Total 0.4 mg/dL (0.2-1.3); Blood Urea Nitrogen 18 mg/dL (7-17); Calcium 9.4 mg/dL (8.4-10.2); Carbon Dioxide 25 mmol/L (22-30); Chloride 105 mmol/L (98-107); Estimated CRCL calculation 52 ml/min; Estimated Glomerular Filt Rate 37; Glucose 126 mg/dL (65-110); Potassium 4.0 mmol/L (3.4-5.0); Sodium 137 mmol/L (137-145); Total Protein 6.8 g/dL (6.3-8.2)
[2025-07-17 08:00] VITALS: PULSE 77
[2025-07-17 08:16] VITALS: BP 103/65; PULSE 97; O2SAT 96
[2025-07-17] MEDS: HYDROcodone/acetaminophen (*CRX) 10-325 MG TABLET 1 TAB PO (08:19)
[2025-07-17] MEDS: ENOXAPARIN 40 MG/0.4 ML SYRINGE SUB-Q (08:25)
[2025-07-17] MEDS: AZELASTINE HCL NASAL 0.1% 137 MCG/SPR 30 ML BTL 1 SPRAY NASAL (08:27)
[2025-07-17] MEDS: PANTOPRAZOLE 40 MG TABLET PO (08:28)
[2025-07-17] MEDS: LORATADINE 10 MG TABLET PO (08:28)
[2025-07-17] MEDS: NYSTATIN 100,000 UNITS/ML SUSP 5 ML ORAL.SUSP PO ×2 (08:30→12:29)
[2025-07-17] MEDS: FLUCONAZOLE 150 MG TABLET PO (08:41)
[2025-07-17 12:00] VITALS: PULSE 82
--- NOTE | 2025-07-17 12:00 | PM.DS ---
DS: Admitting Diagnosis Discharge Date 07/17/2025 Admitting Diagnosis Abnormal labs DS: Discharge Diagnosis Discharge Diagnosis (1) Hypercalcemia: Code(s): E83.52 - Hypercalcemia Status: Acute (2) LILIAN (acute kidney injury): Code(s): N17.9 - Acute kidney failure, unspecified Status: Acute (3) UTI (urinary tract infection): Code(s): N39.0 - Urinary tract infection, site not specified Status: Acute (4) Thrush, oral: Code(s): B37.0 - Candidal stomatitis Status: Acute (5) Asthma: Code(s): J45.909 - Unspecified asthma, uncomplicated Status: Chronic (6) Diabetes: Qualifiers: Diabetes mellitus type: type 2 Diabetes mellitus terminologist insulin use: with half-way use Diabetes mellitus complication status: without complication Qualified Code(s): E11.9 - Type 2 diabetes mellitus without complications; Z79.4 - penitentiary (current) use of insulin Code(s): E11.9 - Type 2 diabetes mellitus without complications Status: Chronic (7) Vitamin D deficiency: Code(s): E55.9 - Vitamin D deficiency, unspecified Status: Chronic (8) Peripheral neuropathy: Code(s): G62.9 - Polyneuropathy, unspecified Status: Chronic DS: Summary Hospital Course Hospital Course: This is a 64-year-old female who presents to the ED at the request of primary care provider as her calcium level was noted to be elevated on labs. Patient had a routine lab for upcoming hiatal hernia surgery which is scheduled on August 03, 2025. Patient calcium was elevated at 13. She denied any chest pain palpitation shortness of breath nausea vomiting diarrhea. She takes supplementation of multivitamin and had been placed on spironolactone as a result of hair loss due to her use of moans RO. Patient also notes that at home her glucose has been running higher than usual and CP but she having some thrush for which she was prescribed nystatin by her primary care provider. She reports very sore tongue and antony with a thick plaque on it. No fever. In the ED vital signs were normal EKG showed normal sinus rhythm without ectopy or ischemia. CBC unremarkable. Metabolic panel showed creatinine of 2.2 BUN of 27 baseline creatinine around 0.8-1.2 historically. Her calcium was noted to be elevated at 13.3 phosphorus was 4.1 lipase 67 vitamin-D was 104. Her urinalysis showed 2+ leukocyte esterase 51-100 WBC and 4+ bacteria. Magnesium 2.1 she was started on Rocephin maintenance IV fluids for LILIAN and hypercalcemia and was admitted in the hospital. During hospital course her calcium improved to normalization. Suspected to be due to dehydration caused by moans RO versus spironolactone LILIAN resolved almost back to baseline. Will stop spironolactone at discharge UTI asymptomatic treated with Rocephin during the hospital stay. Will stop at discharge Candidal stomatitis on nystatin and Diflucan. Will finish the course of Diflucan Asthma on albuterol p.r.n. Diabetes type 2 continue home regimen and hold mounjaro. Vitamin D deficiency on replacement however vitamin level was high will need to lower the dose Peripheral neuropathy on gabapentin History of traumatic right BKA Left 2.[address] findings suggesting adrenal adenoma. Follow-up as an outpatient basis Hiatal hernia follow-up as an outpatient basis Cholelithiasis asymptomatic A heterogenous masslike structure in right lobe liver near the liver dome 5 x 5.8 x 5.2 cm mass with 1.9 cm indeterminatnt lesion in lmedial segment of left lobe. She is planned to get an MRI set up as an outpatient basis Full code Lovenox Time Spent with Patient Time attestation: Total time spent providing and/or coordinating discharge services: 35 minutes Exam Narrative: GENERAL: The patient is well developed, not in acute distress HEENT: Nonicteric sclerae, PERRLA, EOMI. Oropharynx clear. Moist mucous membranes. Conjunctivae appear well perfused. CHEST: Chest wall is nontender. HEART: Regular rate and rhythm without murmur, rubs, or gallops LUNGS: Clear to auscultation bilaterally. no respiratory distress ABDOMEN: Soft, positive bowel sounds, non-tender, no organomegaly. SKIN: No rash, no excessive bruising, petechiae, or purpura. NEUROLOGIC: Cranial nerves II-XII intact, alert and oriented x 3, no gross motor deficits EXTREMITIES: no edema, cyanosis or clubbing right BKA DS: Data Data Completed and Pending Labs on day of discharge: Labs from last 24 hours 07/17/25 07/17/25 07/17/25 11:37 07:38 05:23 WBC 5.9 RBC 4.28 Hgb 11.9 L Hct 38.2 MCV 89.3 MCH 27.8 MCHC 31.2 L RDW 15.4 H Plt Count 212 MPV 11.5 H Sodium 137 Potassium 4.0 Chloride 105 Carbon Dioxide 25 Anion Gap 7 BUN 18 H Creatinine 1.44 H Estim Creat Clear Calc 52 Estimated GFR 37 L Glucose 126 H POC Capillary Glucose 131 H 115 H Calcium 9.4 Total Bilirubin 0.4 AST 31 ALT 19 Alkaline Phosphatase 53 Total Protein 6.8 Albumin 3.5 07/16/25 07/16/25 19:29 16:51 WBC RBC Hgb Hct MCV MCH MCHC RDW Plt Count MPV Sodium Potassium Chloride Carbon Dioxide Anion Gap BUN Creatinine Estim Creat Clear Calc Estimated GFR Glucose POC Capillary Glucose 149 H 120 H Calcium Total Bilirubin AST ALT Alkaline Phosphatase Total Protein Albumin Imaging Radiologist's impression: ITS Impressions Chest X-Ray 07/14/25 09:40 IMPRESSION: 1. Small opacities in the lower lungs which represent atelectasis or infiltrates. Renal Ultrasound 07/15/25 18:16 Impression: 1: Unremarkable renal ultrasound. No stones, masses or hydronephrosis. Discharge Plan Discharge Attending physician on discharge: Gustavo Mercer Consulting providers: Giovani Phillips Discharging Clinician: Gustavo Mercer Anticipated Discharge Date/Time: 07/17/25 12:06 Patient Disposition: Home Activity: as tolerated Diet: heart healthy and diabetic Patient Instructions: Antibiotic Form Patient Language: Swazi Stand Alone Forms: General Discharge Information Follow-up/Referrals: Lakshmi Ramos APRN [Primary Care Provider, [facility]] - 1 Week Discharge Medications: New fluconazole 100 mg tablet 100 mg PO DAILY Qty: 3 0RF Continued (DME) blood-glucose meter [CareTouch Glucose Monitoring] Kit See Rx Instructions .Route Qty: 1 0RF Rx Instructions: As directed azelastine 137 mcg (0.1 %) spray,non-aerosol 1 spray intranasal Q12H Qty: 30 3RF Rx Instructions: administer into each nostril loratadine [Claritin] 10 mg tablet 10 mg PO DAILY Qty: 30 2RF (DME) blood-glucose meter Misc See Rx Instructions .Route Qty: 1 0RF Rx Instructions: As directed check blood sugar tid gabapentin 600 mg tablet See Rx Instructions .ROUTE .COMPLEX Qty: 180 6RF Dose Instruction: TAKE 2 TABLETS BY MOUTH THREE TIMES DAILY Rx Instructions: TAKE 2 TABLETS BY MOUTH THREE TIMES DAILY magnesium 250 mg Tablet 250 mg PO DAILY albuterol sulfate 90 mcg/actuation HFA aerosol inhaler 2 puff inhalation Q6-8H PRN (Reason: shortness of breath or wheezing) (DME) pen needle, diabetic [BD Ultra-Fine Mini Pen Needle] 31 gauge x 3/16 needle See Rx Instructions .ROUTE .COMPLEX Qty: 100 3RF Dose Instruction: DIRECTED WITH LANTUS TWICE DAILY Rx Instructions: DIRECTED WITH LANTUS TWICE DAILY hyoscyamine sulfate 0.125 mg tablet 0.125 mg sublingual Q6-8H PRN (Reason: dyspepsia) Qty: 120 5RF ibuprofen 800 mg tablet See Rx Instructions .ROUTE .COMPLEX Qty: 270 3RF Dose Instruction: TAKE 1 TABLET BY MOUTH THREE TIMES DAILY WITH FOOD FOR PAIN Rx Instructions: TAKE 1 TABLET BY MOUTH THREE TIMES DAILY WITH FOOD FOR PAIN naloxone [Narcan] 4 mg/actuation spray,non-aerosol 4 mg intranasal Q2-3M PRN (Reason: opioid overdose) Qty: 2 0RF Rx Instructions: spray 1 dose into ONE nostril; alternate nostrils w each dose until help arrives Jardiance 25 mg tablet See Rx Instructions .ROUTE .COMPLEX Qty: 90 3RF Dose Instruction: TAKE 1 TABLET BY MOUTH EVERY DAY Rx Instructions: TAKE 1 TABLET BY MOUTH EVERY DAY rosuvastatin 5 mg tablet See Rx Instructions .ROUTE .COMPLEX Qty: 90 3RF Dose Instruction: TAKE 1 TABLET BY MOUTH EVERY DAY IN THE EVENING Rx Instructions: TAKE 1 TABLET BY MOUTH EVERY DAY IN THE EVENING ferrous sulfate 325 mg (65 mg iron) tablet,delayed release (DR/EC) See Rx Instructions .ROUTE .COMPLEX Qty: 90 3RF Dose Instruction: TAKE 1 TABLET BY MOUTH DAILY Rx Instructions: TAKE 1 TABLET BY MOUTH DAILY polyethylene glycol 3350 [Miralax] 17 gram/dose powder 17 g PO DAILY PRN (Reason: Constipation) Qty: 510 6RF famotidine 20 mg tablet See Rx Instructions .ROUTE .COMPLEX Qty: 90 3RF Dose Instruction: TAKE 1 TABLET BY MOUTH EVERY DAY Rx Instructions: TAKE 1 TABLET BY MOUTH EVERY DAY ondansetron 4 mg tablet,disintegrating See Rx Instructions .ROUTE .COMPLEX Qty: 20 3RF Dose Instruction: DISSOLVE 1 TABLET IN MOUTH EVERY 6 HOURS NEEDED FOR NAUSEA AND VOMITING Rx Instructions: DISSOLVE 1 TABLET IN MOUTH EVERY 6 HOURS NEEDED FOR NAUSEA AND VOMITING omeprazole 40 mg capsule,delayed release(DR/EC) See Rx Instructions .ROUTE .COMPLEX Qty: 90 3RF Dose Instruction: TAKE 1 CAPSULE BY MOUTH DAILY Rx Instructions: TAKE 1 CAPSULE BY MOUTH DAILY nystatin 100,000 unit/mL suspension 1 ml PO DAILY Qty: 500 0RF Rx Instructions: swish and swallow hydrocodone-acetaminophen 10-325 mg tablet 1 tablet PO Q8H PRN (Reason: pain) Qty: 90 0RF alprazolam 0.5 mg tablet 0.5 mg PO TID PRN (Reason: anxiety) Qty: 90 1RF (DME) lancets [CareTouch Twist Lancet] 33 gauge misc See Rx Instructions .Route Qty: 300 3RF Rx Instructions: As directed, 3 x a day (DME) CareTouch Test Strip Strip See Rx Instructions .Route Qty: 300 3RF Rx Instructions: As directed 3 times a day insulin glargine [Lantus Solostar U-100 Insulin] 100 unit/mL (3 mL) insulin pen See Rx Instructions subcut .COMPLEX Rx Instructions: 13 units in am and 13 units in pm subcutaneously; Discontinued lisinopril 2.5 mg tablet See Rx Instructions .ROUTE .COMPLEX Qty: 90 3RF Dose Instruction: TAKE 1 TABLET BY MOUTH DAILY Rx Instructions: TAKE 1 TABLET BY MOUTH DAILY cholecalciferol (vitamin D3) 1,250 mcg (50,000 unit) capsule See Rx Instructions .ROUTE .COMPLEX Qty: 12 0RF Dose Instruction: TAKE ONE CAPSULE BY MOUTH WEEKLY Rx Instructions: TAKE ONE CAPSULE BY MOUTH WEEKLY Mounjaro 12.5 mg/0.5 mL pen injector See Rx Instructions .ROUTE .COMPLEX Qty: 2 3RF Dose Instruction: ADMINISTER 12.5 MG UNDER THE SKIN WEEKLY Rx Instructions: ADMINISTER 12.5 MG UNDER THE SKIN WEEKLY Date of admission: 07/16/25 13:06 Primary Care Provider: Lakshmi Ramos Admitting Provider: Jose De Jesus Gutierrez Attending physician on admission: Giovani Phillips Condition: Improved
== END 2025-07-17 13:44 | disposition home or self-care (01) | DRG 683 ==
LOC: ANHED 22:01 → ANH3MEDSUR 23:55
PROVIDERS: General Practice; Internal Medicine; Nurse Practitioner Adult Health; Admitting Provider Family Medicine; Emergency Provider Emergency Medicine; PCP Nurse Practitioner Adult Health; Visit Provider Internal Medicine
DX: N17.9 Acute kidney failure, unspecified (principal); B37.0 Candidal stomatitis; N39.0 Urinary tract infection, site not specified; E83.52 Hypercalcemia; E86.0 Dehydration; J45.909 Unspecified asthma, uncomplicated; D35.02 Benign neoplasm of left adrenal gland; K44.9 Diaphragmatic hernia without obstruction or gangrene; K80.20 Calculus of gallbladder without cholecystitis without obstruction; R16.0 Hepatomegaly, not elsewhere classified; E11.42 Type 2 diabetes mellitus with diabetic polyneuropathy; E66.9 Obesity, unspecified; S88.11 Complete traumatic amputation at level between knee and ankle; Z68.34 Body mass index [BMI] 34.0-34.9, adult; Z79.4 Long term (current) use of insulin
CPT/HCPCS: 36415; 71045; 76770; 80048; 80053; 81001; 82330; 82948; 83036; 83690; 83735; 83970; 84100; 84439; 84443; 84480; 85025; 85027; 87086; 93005; 96361; 96365; 99285; A9270; G0378; J0696; J1200; J1650; J7030

== ENCOUNTER 2025-07-31 11:23 | Outpatient (CLI) | payer OTHER, SELFPAY ==
--- OUTSIDE RECORDS SUMMARY | 2025-07-31 11:47 | XMS_ITS | Clinical Summary ---
Author Organization [facility] Address [address] [place] [address] Phone Care Team Providers Care Public Address Servicer Name Role Phone Analy Wilkerson APRN, SPINDLE TESTER Unavailable Armen Johns MD Primary Care Provider [phone] Allergies Active Allergy Reactions Criticality Noted Date [...] 1/2 tab. Active Vitamin D3 1.25 MG (97270 UT) Capsule Take 5,000 Units by mouth [...] in 72 hours. 2 Tablet 5 Active Active Problems Problem Noted Date Diagnosed [...] Department Care Team Description 06/12/2025 Results Follow-Up [facility] [address] [place] [address] Shad Ospina, PAC XR CHEST 2 VIEWS 06/11/2025 6:00 PM CDT Ancillary Procedure [facility] Diagnostic Radiology [facility] [address] [place] [address] Malini Weathers APRN, CNP Acute cough; SOB (shortness of breath) Discharge Disposition: Discharged to home or Selfcare 06/11/2025 5:15 PM CDT Urgent Care Visit [facility] [address] [place] [address] Malini Weathers APRN, CNP Acute cough (Primary Dx); Lower respiratory infection (e.g., bronchitis, pneumonia, pneumonitis, pulmonitis); SOB (shortness of breath); Nausea; Moderate persistent asthma with acute exacerbation; Type 2 diabetes mellitus with diabetic neuropathy, with long-term current use of insulin ([facility]) Discharge Disposition: Discharged to home or Selfcare 06/11/2025 [facility] [address] [place] [address] Nurse, Oterotrevor Alvarez [facility] xray results 06/11/2025 Travel from Last 3 Months Immunizations Immunization Administration Dates Next Due Influenza Vaccine, Quadrivalent, PF 0 11/2021,09/13/2021,03/11/2020,10/30 Influenza, Injectable, Quadrivalent 09/25/2016 Influenza, Seasonal, Injecta ble, Undefined 10/25/2015 Influenza,Split Virus,Trivalent,Injectable,PF 10/27/2013 Pneumococcal Vaccine Adult - 23 Valent 1,03/11/2020 Pneumococcal conjugate PCV20 , polysaccharide [id number] conjugate, adjuvant, PF 05/09/2023 TDAP Vaccine 03/12/2019 [...] = 0.6 oz pur e alcohol) Rarely [facility] Utilities Answer Date Recorded In the [...] any time in the past 12 m [facility], were you homeless or living in a [place] [facility] [place] facility (including now)? No 01/12/2025 Comments No Sex [...] 128.4 kg (283 lb) 01/12/2025 8:44 AM SUPERVISOR SMOKE CONTROL Height 182.9 cm (6') 01/12/2025 8:44 AM SUPERVISOR SMOKE CONTROL Body Mass Index 38.38 01/12/2025 8:44 AM SUPERVISOR SMOKE CONTROL Plan of Treatment Health Maintenance Due Date Last Done Comments Diabetes: Eye Exam 1962 Diabetes: Foot Exam 1960 Hepatitis C Virus (HCV) Screening 1960 Cologuard 2007 Mammogram 04/30/2019 04/30/2018 Immunochemical Fecal Occult Blood 03/11/2021 03/11/2020 Respiratory Syncytial Virus (RSV) Immunization (Adult) (1 - Risk 60-74 years 1-dose series) 2022 Diabetes: Hemoglobin A1c 07/11/2025 025, 03/09/2020, 03/12/2019, Additional history exists Influenza Immunization (#1) 2025 11/0 11/2021, 09/13/2021, 03/11/2020, Additional history exists SARS-COV-2 Immunization ( season) 2025 12/20/2021, 03/22/2021, 02/22/2021 Diabetes: Nephropathy Screening 01/11/2026 01/11/2025, 05/26/2022, 05/24/2022, [...] (COMPREHENSIVE METABOLIC PANEL) STAT 01/11/2025 10:29 PM SUPERVISOR SMOKE CONTROL HEMOGLOBIN A1C W/ ESTIMATED GLUCOSE STAT 01/11/2025 10:29 PM SUPERVISOR SMOKE CONTROL STOOL, OCCULT BLOOD, DIAGNOSTIC, VIA GUAIAC Routine [...] Flex Young M.D. KR: LACI Report ID: [id number] Reading Location: [id number] Procedure Note Flex Young MD - 06/11/2025 [...] Flex Young M.D. KR: LACI Report ID: [id number] Reading Location: [id number] IMPRESSION: No acute cardiopulmonary abnormality. Stable large hiatal hernia. Malini Weathers MULTI SHARE PROGRAM COORDINATOR, KEIRY IMG DIAGNOSTIC ORDER NICKI Final Result * POC SARS-COV-2 BY MOLECULAR (06/11/2025 5:47 PM CDT) SARSCOV2 Negative Negative, INVALID PROCEDURE CONTROL Valid 06/11/2025 5:47 PM CDT us Malini Weathers APRN, CNP POINT OF CARE TESTIN G (MANUAL) Final Result * (ABNORMAL) Hemoglobin A1C (if indicated) (01/11/2025 10:29 PM SUPERVISOR SMOKE CONTROL) HGB-A1C 11.8(H) 4.0 - 6.0 % 01/12/2025 4:45 AM SUPERVISOR SMOKE CONTROL [facility] Est Average Glucose 292.0 mg/dL 01/12/2025 4:45 AM SUPERVISOR SMOKE CONTROL [facility] Blood Venipuncture / Unknown 01/11/2025 10:29 PM SUPERVISOR SMOKE CONTROL 01/11/2025 10:45 PM SUPERVISOR SMOKE CONTROL Narrative [facility] - 01/12/2025 4:45 AM SUPERVISOR SMOKE CONTROL HEMOGLOBIN A1C: DIABETIC PATIENTS: WELL-CONTROLLED: 6.2 - 7.0 INTERMEDIATE WELL-CONTROLLED: 7.0 - 9.0 POORLY-CONTROLLED: >9.0 Specimens containing greater than 5% of Hemoglobin F may result in lower than expected % HbA1C results. us Katy Otero APRN, CNP CHEMISTRY ORDERABLES Yue l Result [facility] [address] [place] [address] * (ABNORMAL) CMP (01/11/2025 10:29 PM SUPERVISOR SMOKE CONTROL) SODIUM 138 136 - 145 mmol/L 01/11/2025 11:07 PM SUPERVISOR SMOKE CONTROL [facility] POTASSIUM 4.7 3.5 - 5.1 mmol/L 01/11/2025 11:07 PM SUPERVISOR SMOKE CONTROL [facility] Comment: Specimen is hemolyzed. In vitro hemolysis could affect results. Clinical correlation advised. CHLORIDE 106 98 - 107 mmol/L 01/11/2025 11:07 PM SUPERVISOR SMOKE CONTROL [facility] CO2, VENOUS 20(L) 22 - 30 mmol/L 01/11/2025 11:07 PM SUPERVISOR SMOKE CONTROL [facility] ANION GAP 16.7 <18.0 mmol/L 01/11/2025 11:07 PM [facility] GLUCOSE 318(H) 70 - 99 mg/dL 01/11/2025 11:07 PM [facility] BUN 21(H) 10 - 20 mg/dL 01/11/2025 11:07 PM [facility] CREATININE, BLOOD 1.83(H) 0.60 - 1.00 mg/dL 01/11/2025 11:07 PM [facility] BUN/CREATININE RATIO 11(L) 12 - 20 ratio 01/11/2025 11:07 PM [facility] TOTAL PROTEIN 8.2(H) 6.0 - 8.0 g/dL 01/11/2025 11:07 PM [facility] Comment: Specimen is hemolyzed. In vitro hemolysis could affect results. Clinical correlation advised. ALBUMIN 3.5 3.5 - 5.0 g/dL 01/11/2025 11:07 PM [facility] A/G RATIO 0.7(L) 1.0 - 2.2 01/11/2025 11:07 PM [facility] CALCIUM 8.9 8.7 - 10.5 mg/dL 01/11/2025 11:07 PM [facility] T BILI 0.6 0.2 - 1.2 mg/dL 01/11/2025 11:07 PM [facility] SGOT (AST) 37 <43 U/L 01/11/2025 11:07 PM [facility] Comment: Specimen is hemolyzed. In vitro hemolysis could affect results. Clinical correlation advised. SGPT (ALT) 17 <56 U/L 01/11/2025 11:07 PM [facility] ALKALINE PHOSPHATASE 66 40 - 150 U/L 01/11/2025 11:07 PM [facility] GFR, ESTIMATED 31(L) >=60 01/11/2025 11:07 PM [facility] Comment: Creatinine Clearance is the preferred criteria for selecting drug dose adjustments in renally impaired patients. The GFR is provided as additional pertinent clinical information. GFR is reported in mL/min/1.73 sq m. Calculation based on the Chronic Kidney Disease Epidemiology Collaboration (CKD- EPI) equation refit without adjustment for race. GFR, EST. 34(L) >=60 025 11:07 PM SUPERVISOR SMOKE CONTROL [facility] GFR, EST. NONAFRICAN 28(L) >=60 01/11/2025 11:07 PM SUPERVISOR SMOKE CONTROL [facility] Blood Venipuncture / Unknown 01/11/2025 10:29 PM SUPERVISOR SMOKE CONTROL 01/11/2025 10:45 PM SUPERVISOR SMOKE CONTROL us Shady Irby MD CHEMISTRY ORDERABLES Final Result Performing Organization Address City/[facility]/ZIP Co de Phone Number [facility] [address] [place] [address] * Stool, Occult Blood, Diagnostic (03/11/2020 12:35 AM CDT) OCCULT BLOOD DIAG Negative Negative 03/11/2020 1:11 AM CDT [facility] Stool specimen (specimen) STOOL SPECIMEN / Unknown Non-Phlebotomy Collection / Unknown 03/11/2020 12:35 AM CDT 03/11/2020 12:41 AM CDT us Alyssia Levya APRN, CNP BODY FLUIDS & STOOL S ORDERABLES Final Result [facility] [address] [place] [address] * BRIGITTE DIAG BILATERAL DIGITAL W CAD [...] exams dated: 11/03/2006, 11/04/2013, 10/27/2006, and 10/27/2006 [facility]. BREAST TISSUE:There are scattered fibroglandular densities [...] signed by: Sintia Duarte M.D. ll/:04/30/2018 11:30:16 Provider Enrollment Specialist: Marcia Resendiz (Chandu), [facility] letter sent: Normal Exam Reading location: [facility] OVERALL STUDY BIRADS: 2 Benign Procedure Note [...] exams dated: 11/03/2006, 11/04/2013, 10/27/2006, and 10/27/2006 [facility]. BREAST TISSUE:There are scattered fibroglandular densities [...] signed by: Sintia Duarte M.D. 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 Care Teams Public Address Servicer Relationship Specialty Start Date End Date Armen Johns MD PCP - General Family Medicine 05/26/22 Analy Wilkerson, MULTI SHARE PROGRAM COORDINATOR, SPINDLE TESTER Nurse Practitioner Advanced Practice Nurse 07/25/16
--- OUTSIDE RECORDS SUMMARY | 2025-07-31 11:47 | XMS_ITS | Encounter Summary ---
Author Organization [facility] Address [address] [place] [address] Phone Care Team Providers Care Therapist Radiation Name Role Phone Analy Wilkerson LYNDA, SHOT TUBE MACHINE TENDER Unavailable Armen Johns MD Primary Care Provider [phone] Encounter Details Date Type Department Care Team (Late st Contact Info) Description 06/12/2025 Results Follow-Up [facility] [place] [address] [place] [address] Shad Ospina, AKHIL [address] [place] [address] XR CHEST 2 VIEWS Social History Tobacco Use Types Packs/Day Years Used Date Smoking Tobacco: Never Smokeless Tobacco: Never Alcohol Use Standard Drinks/Week Comments Not Currently 0 (1 standard drink = 0.6 oz pur e alcohol) Rarely [facility] Utilities Answer Date Recorded In [...] any time in the past 12 m [facility], were you homeless or living in a half-way (including now)? No 01/12/2025 Comments No Sex [...] documented as of this encounter Care Teams Therapist Radiation Relationship Specialty Start Date End Date Armen Johns MD PCP - General Family Medicine 05/26/22 Analy Wilkerson, BRAKE MACHINE OPERATOR, SHOT TUBE MACHINE TENDER Nurse Practitioner Advanced Practice Nurse 07/25/16 documented as of this encounter
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
== END 2025-07-31 11:24 | disposition home or self-care (01) ==
LOC: ANHLAB 11:24
PROVIDERS: PCP Nurse Practitioner Adult Health; Visit Provider Surgery
DX: K44.9 Diaphragmatic hernia without obstruction or gangrene (principal)
CPT/HCPCS: 36415; 86850; 86900; 86901

== ENCOUNTER 2025-08-03 19:14 | Inpatient (IN) | payer OTHER, SELFPAY ==
[2025-07-31 09:27] VITALS: BMI 34.4
--- NOTE | 2025-07-31 09:38 | PC.NURSE ---
Report to the Outpatient Waiting Room, entrance under the green pavilion located off [facility], at time _1000_ on date _[id number]_. Planned Procedure Time: _1200_.? Time changes happen often and if your time is changed the preop area will call you the afternoon before. - You and your visitor will be asked to self-screen and do not enter if you have any COVID symptoms. Please call surgeon if you need to reschedule. - A mask is optional within the hospital at this time. Patients may have clear liquids (water, carbonated beverages, clear teas, apple juice) until 3 hours prior to surgery with a maximum of 20 ounces. - No food from midnight until time of surgery and no smoking, or chewing tobacco (or any form of nicotine). No chewing gum, candy or mints. Take only the following medications with a SIP of water on the morning of surgery: __Gabapentin, and if needed Hydrocodone, Zofran, and or Alprazolam___ DO NOT STOP ANY OF YOUR OTHER PRESCRIPTION MEDICATIONS PRIOR TO SURGERY EXCEPT THE FOLLOWING Hold all vitamins and supplements for 3 days per anesthesiologist. Medications to discontinue per physician No Ibuprofen unless approved by Dr Hernandez. Date to take last dose Please no make-up, nail portuguese, hairspray, perfume, deodorant, or body powder the day of surgery.? No jewelry (including any body piercings) or valuables the day of surgery, leave them at home.? Please take a shower or bath the night before, or the morning of, surgery with an antibacterial soap.? Wear comfortable, loose fitting clothing.? - Jewelry must be removed prior to entering the operating room.? Rings and piercings that are not removed may be cut off. - The hospital will not accept responsibility for valuables.? - Please leave all valuables, including medications, at home the day of surgery. If you are going home after surgery, a licensed oil transport driver must drive you home.? - NO public transportation without another adult if you receive anesthesia. - We recommend that an adult stay with you for 24 hours following discharge. - We also recommend that you do not drive, make important decision, drink alcoholic beverages, or take any drugs that were not prescribed by your health care provider for at least 24 hours after your discharge time. Follow any additional instructions given to you from your surgeon. Telephone instructions given to __Marge___and asked if any additional questions and then verbalized understanding. Patient advised to call surgeon office or pre surgery nurse liaison [phone] if any additional questions.
--- NOTE | 2025-08-02 21:27 | P.HP_ITS ---
H&P: HPI History of Present Illness Date/Time: 08/02/25 21:27 Chief Complaint: GERD, dysphagia Narrative: Patient is a 64 yo woman with severe, recalcitrant heartburn, dysphagia, and regurgitation. She was diagnosed with a large paraesophageal hiatal hernia by EGD 02/13/23. No esophagitis was noted.The scope was not able to be passed into the duodenum-only as far as the gastric antrum. She has known she has a hiatal hernia since the age of 20. She developed worse symptoms with bloating, belching, pain after eating in 2022. I saw her in the office in February 2023. Her BMI at that time was 43.4. She was advised to consider gastric reduction surgery which can be done with hiatal hernia repair or lose weight. She was started on Mounjaro for diabetes and lost 95lbs. She saw me again in the office 05/22/25. S he continued to have the same symptoms from her hiatal hernia and very much wants it repaired. She had a CT scan of the abdomen on 07/07/25 which showed IMPRESSION: 1. There is a 5.0 x 5.8 x 5.2 cm heterogeneous masslike structure in the right lobe of the liver near the liver dome. The finding heterogeneously enhances with contrast administration. There is a 1.3 cm central low-density region postcontrast. The finding is nonspecific. A biopsy is recommended. 2. Indeterminant 1.9 cm low-density lesion in the medial segment of the left lobe of the liver anteriorly. The finding does not enhance with contrast ministration. A liver mass MRI is recommended. 3. There is a 2.3 cm left adrenal nodule. CT findings suggest an adrenal adenoma. A follow-up CT study in 6 months recommended. 4. Stable hiatal hernia. 5. Cholelithiasis. She was ordered to have an abdominal MRI by her PCP but I am not sure this was done. She had an UGI at [facility] on 07/18/25 which showed the large hiatal hernia, spontaneous reflux and possible presbyesophagus. She also had a plain film of the abdomen that same day which showed constipation and the hiatal hernia. The patient was also admitted to [facility] 07/13/25 with hypercalcemia, LILIAN, UTI, and thrush. Her blood sugars were less well controlled also. She was discharged 07/18 with diagnosis for hypercalcemia and LILIAN likely due to taking spironolactone and dehydration. She has multiple medical problems including asthma, hypertension, T2 diabetes, and neuropathy. She had a right BKA in 2019 due to a tractor accident. She has chronic phantom pain and neuropathy and takes hydrocodone 10/325 Q8H daily for chronic neuropathic pain. After much discussion with her PCP, Lakshmi Ramos APRN, she is taken to surgery now for robotic laparoscopic repair of her paraesophageal hiatal hernia. Review of Systems Review of Systems: All systems reviewed & are unremarkable except as noted in HPI and below (HPI) Constitutional: Constitutional: Reports as per HPI and Reports weight loss Respiratory: Respiratory: Reports as per HPI Gastrointestinal: Gastrointestinal: Reports as per HPI, Reports bloating, Reports early satiety, Reports heartburn and Reports vomiting Musculoskeletal: Musculoskeletal: Reports other (R BKA with chronic neuropathi c limb pain) Integumentary/Breasts: Skin/Breast: Reports alopecia Neurologic: Reports as per HPI Endocrine: Endocrine: Reports as per HPI PMFSH Past Medical History Medical History Peripheral neuropathy Thrush, oral UTI (urinary tract infection) LILIAN (acute kidney injury) Amputation of right lower extremity Positive colorectal cancer screening using Cologuard test Asthma Hypertension Obesities, morbid Therapeutic opioid-induced constipation (OIC) Nausea Epigastric pressure Early satiety Family hx of colon cancer Gastroparesis Hiatal hernia Amputation of right lower extremity below knee Anxiety Other shelter (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 therapy Peripheral polyneuropathy Phantom limb Uncontrolled type 2 diabetes mellitus with hyperglycemia Surgical History Surgical History History of carpal tunnel surgery of left wrist Hx of hysterectomy Family History Family History Mother Diabetes mellitus Heart failure Grandparent Diabetes mellitus Family history of pancreatic cancer Family history of colonic diverticulitis Sibling COPD (chronic obstructive pulmonary disease) Parkinson disease Father Parkinson disease Social History Social History Smoking status: Never smoker Second hand tobacco smoke exposure: No Alcohol intake: never Substance use: never Substance use type: does not use Do You Feel Safe in your Home?: Yes Lack of Transportation: No Lack of Food: Never True Current Housing: I Have Housing Concerned About Future Housing: No Difficulty Paying Gas/Electric Bills: No Difficulty Paying for Meds: No Currently Unemployed: No Education: Trade/Vocational Certificate Difficulty w/ Childcare or Family Care: No Living arrangements: with family Spiritual care concerns: No Meds Home Medications and Allergies Home Medications ?Medication ?Instructions ?Recorded ?Confirmed ?Type blood-glucose meter (CareTouch #1 ea 11/26/21 07/31/25 Rx Glucose Monitoring System kit) magnesium 250 mg tablet 250 mg PO DAILY 02/02/2307/17 History pen needle, diabetic 31 gauge x #100 ea 08/31/2407/31 Rx /16 (BD Ultra-Fine Mini Pen Needle) hyoscyamine sulfate 0.125 mg tablet 0.125 mg sublingua l Q6-8H PRN 09/30/24 07/31/25 Rx dyspepsia #120 tabs ibuprofen 800 mg tablet See Rx Instructions .Route 0 01/10/25 07/31/25 Rx .COMPLEX #270 tabs naloxone 4 mg/actuation nasal 4 mg intranasal Q2-3M NH N opioid 03/06/25 07/31/25 Rx spray (Narcan) overdose #2 ea empagliflozin 25 mg tablet See Rx Instructions .Route 03/20/25 07/31/25 Rx (Jardiance) .COMPLEX #90 tabs ferrous sulfate 325 mg (65 mg See Rx Instructions .Rou te 03/20/25 07/31/25 Rx iron) tablet,delayed release .COMPLEX #90 tabs rosuvastatin 5 mg tablet See Rx Instructions .Route 0 03/20/25 07/31/25 Rx .COMPLEX #90 tabs polyethylene glycol 3350 17 17 g PO DAILY PRN Constipa tion 03/27/25 07/31/25 Rx gram/dose oral powder (Miralax) #510 grams famotidine 20 mg tablet See Rx Instructions .Route 0 04/04/25 07/31/25 Rx .COMPLEX #90 tabs azelastine 137 mcg (0.1 %) nasal 1 spray intranasal Q1 2H #30 mL 04/19/25 07/31/25 Rx spray loratadine 10 mg tablet (Claritin) 10 mg PO DAILY #30 tabs 04/19/25 07/31/25 Rx ondansetron 4 mg disintegrating See Rx Instructions .R oute 05/04/25 07/31/25 Rx tablet .COMPLEX #20 tabs omeprazole 40 mg capsule,delayed See Rx Instructions . Route 06/13/25 07/31/25 Rx release .COMPLEX #90 caps blood-glucose meter #1 ea 07/05/25 07/31/25 Rx gabapentin 600 mg tablet See Rx Instructions .Route 0 07/05/25 07/31/25 Rx .COMPLEX #180 tabs blood sugar diagnostic (CareTouch #300 ea 07/06/2507/17 Rx Test Strip) lancets 33 gauge (CareTouch Twist #300 ea 07/06/2507/17 Rx Lancet) insulin glargine 100 unit/mL (3 See Rx Instructions hi bcut .COMPLEX 07/10/25 07/31/25 History mL) subcutaneous pen (Lantus Solostar U-100 Insulin) albuterol sulfate 90 mcg/actuation 2 puff inhalation Q 6-8H PRN 07/14/25 07/31/25 History aerosol inhaler shortness of breath or wheez ing alprazolam 0.5 mg tablet 0.5 mg PO TID PRN anxiety #9 0 tabs 07/24/25 07/31/25 Rx hydrocodone 10 mg-acetaminophen 1 tablet PO Q8H PRN pa in #90 tabs 07/24/25 07/31/25 Rx 325 mg tablet nystatin 100,000 unit/mL oral See Rx Instructions .Rou te 08/01/25 Rx suspension .COMPLEX #500 mL Allergies Allergy/AdvReac Type Severity Reaction Status Date / Time bisacodyl (From Dulcolax Allergy Mild Swelling Verified 07/31/25 09:19 (bisacodyl)) amoxicillin Allergy Unknown Unknown Verified 07/31/25 09:19 codeine Allergy Unknown Hallucinati Verified 07/31/25 09:19 ng nitrofurantoin Allergy Unknown Unknown Verified 07/31/25 09:19 Sulfa (Sulfonamide Allergy Unknown Unknown Verified 07/31/25 09:19 Antibiotics) ciprofloxacin Allergy Swelling Verified 07/31/25 09:19 of Lip/Tongue/Throat tirzepatide (From Mounjaro) AdvReac Intermediate Other Verified 07/31/25 09:21 metformin AdvReac cramping, Verified 07/31/25 09:19 nausea, abdominal pain morphine AdvReac Anxiety Verified 07/31/25 09:19 spironolactone AdvReac hypercalcem Verified 07/31/25 09:19 ia warfarin (From Coumadin) AdvReac hemorrage Verified 07/31/25 09:19 Exam Const: General: cooperative, comfortable, no acute distress, alert, awake and overweight Nutritional Appearance: well nourished Orientation/consci ousness: patient oriented x3 and No confusion HENMT: Head: normocephalic and atraumatic Mouth: Yes Normal oral and palatal mucosa present Eyes: Conjunctivae: conjunctivae normal Pupils: Equal, round and reactive pupils present EOM: EOMs intact bilaterally Neck: Neck: normal visual inspection, no lymphadenopathy and nontender Resp: Effort & Inspection: normal respiratory effort Auscultation: clear to auscultation bilaterally Cardio: Rate: regular rate Rhythm: regular rhythm Heart sounds: no gallops, no murmurs and no rubs GI: Inspection: non-distended GI Palp: Yes Soft to palpation, No Tenderness to palpation present (GI), No Hepatomegaly present and No Splenomegaly present Skin: Lesions: no lesions Rashes: no rashes Neuro: General: no focal motor deficits and CN's II-XI intact bilaterally Cranial nerves: Yes Equal, round and reactive pupils present, Yes Bilaterally intact EOM present, Yes facial symmetry and Yes Midline tongue present Speech: normal speech Gait exam (Neuro): Unable to assess gait Motor exam (neuro): 5/5 motor strength present throughout and Motor abnormalities not present Extrem: General: no clubbing, cyanosis or edema and edema Right lower extremity: lower leg (right BKA) Psych: Affect: normal affect Thought process: Normal thought process present Insight: Good insight present (Psych) Assessment and Plan Assessment and plan (1) Paraesophageal hiatal hernia: Code(s): K44.9 - Diaphragmatic hernia without obstruction or gangrene Status: Acute Assessment and Plan: Patient very symptomatic and has lost nearly 100lbs to get this repaired. The procedure has been discussed with her thoroughly including risks, benefits, stay in hospital after surgery, typical recovery, and potential complications. She wishes to proceed. (2) Liver lesion: Code(s): K76.9 - Liver disease, unspecified Status: Chronic Assessment and Plan: Abnormality noted on CT 07/07. Will get reviewed again with in house radiologist. If suspicious, her surgery may need postponed as I don't see that an MRI was done. (3) GERD (gastroesophageal reflux disease): Qualifiers: Esophagitis presence: without esophagitis Qualified Code(s): K21.9 - Gastro-esophageal reflux disease without esophagitis Code(s): K21.9 - Gastro-esophageal reflux disease without esophagitis Status: Chronic Assessment and Plan: recalcitrant despite acid reducing medications. 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 Code(s): E11.9 - Type 2 diabetes mellitus without complications Status: Chronic (6) Phantom pain after amputation of lower extremity: Code(s): G54.6 - Phantom limb syndrome with pain Status: Chronic (7) Asthma: Qualifiers: Asthma severity: moderate Asthma persistence: persistent Asthma complication type: unspecified Qualified Code(s): J45.40 - Moderate persistent asthma, uncomplicated Code(s): J45.909 - Unspecified asthma, uncomplicated Status: Chronic (8) Hx of right BKA: Code(s): Z89.511 - Acquired absence of right leg below knee Status: Chronic Assessment and Plan: tractor accident 2018 (9) Chronic narcotic dependence: Code(s): F11.20 - Opioid dependence, uncomplicated Status: Chronic Assessment and Plan: [place] Q8H for neuropathic pain.
[2025-08-03] VITALS (19 sets, daily range): BP systolic 126–147; BP diastolic 61–90; PULSE 70–92; RESP 12–22; TEMP 36.2–37.2; O2SAT 91–98
--- NOTE | ~2025-08-03 | XR_ITS ---
EXAMINATION: XR chest 1V portable COMPARISON: No comparisons available. HISTORY: coughing, eval for pneumonia FINDINGS: Mild pulmonary venous congestion. Small basilar infiltrates. No pneumothorax. Moderate cardiomegaly. Mediastinal and hilar contours are within normal limits. Bony thorax no acute abnormality. Miscellaneous: None Impression: CHF. Superimposed probable pneumonia. The findings are new compared to the previous study. Reviewed, dictated and finalized at location A. Impression: CHF. Superimposed probable pneumonia. The findings are new compared to the prev ious study.
--- OUTSIDE RECORDS SUMMARY | 2025-08-03 00:10 | XMS_ITS | Encounter Summary ---
Author Organization [facility] Address [address] [place] [address] Phone Care Team Providers Care Front End Loader Driver Name Role Phone Analy Wilkerson LYNDA, TECHNICAL SYSTEM ANALYST Unavailable Armen Johns MD Primary Care Provider Encounter Details Date Type Department Care Team (Late st Contact Info) Description 06/12/2025 Results Follow-Up [facility] [place] [address] [place] [address] Shad Ospina, AKHIL [address] [place] [id number] XR CHEST 2 VIEWS Social History Tobacco Use Types Packs/Day Years Used Date Smoking Tobacco: Never Smokeless Tobacco: Never Alcohol Use Standard Drinks/Week Comments Not Currently 0 (1 standard drink = 0.6 oz pur e alcohol) Rarely [facility] Utilities Answer Date Recorded In the past [...] any time in the past 12 m [facility], were you homeless or living in a assisted (including now)? No 01/12/2025 Comments No Sex [...] documented as of this encounter Care Teams Front End Loader Driver Relationship Specialty Start Date End Date Armen Johns MD PCP - General Family Medicine 05/26/22 Analy Wilkerson, ARRANGING FUNERAL DIRECTOR, TECHNICAL SYSTEM ANALYST Nurse Practitioner Advanced Practice Nurse 07/25/16 documented as of this encounter
--- OUTSIDE RECORDS SUMMARY | 2025-08-03 00:11 | XMS_ITS | Clinical Summary ---
Author Organization [facility] Address [address] [place] [address] Care Team Providers Care Melter Supervisor [employer] Name Role Phone Nena Garcia NP Unavailable [phone] Armen Johns MD Primary Care Provider [phone] Allergies Active Allergy Reactions Criticality Noted Date [...] 9 Active blood-glucose meter (ONETOUCH ULTRA2 METER) [facility] USE DIRECTED TO TEST BLOOD SUGAR 6 [...] neuropathy, without long-term current use of insulin ([facility]) 03/17/2019 Assessment & Plan (03/17/2019 4:18 PM CDT): 58-year-old woman with history of type 2 diabetes admitted March 12, 2019 after partial traumatic amputation right foot now post [id number] amputation. She previously was intolerant of metformin [...] (03/12/2019): Added automatically from request for surgery [id number] Assessment & Plan (03/17/2019 4:19 PM CDT): We will work to improve glycemic control to assist in wound healing. Patient understands the need for long-term stable glycemic control. Side effects of the sulfonylurea agents were discussed in detail with her. Encounters Date Type Department Care Team Description 07/18/2025 7:38 AM CDT - 07/18/2025 11:59 PM CDT Hospital Encounter [facility] [address] [place] [address] Rad, Amh Fluoro Blake Hernandez MD Diaphragmatic hernia without obstruction or gangrene Discharge Disposition: Discharge to home or self care from Last 3 Months Immunizations Immunization Administration Dates Next Due Tdap 03/12/2019 Surgical History Surgery Date Site/Laterality Comments TUBAL LIGATION ENDOMETRIAL ABLATION HYSTERECTOMY 1990s for endometriosis BELOW KNEE LEG AMPUTATION 03/12/2019 Right for traumatic injury of R foot- 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 CARPAL TUNNEL RELEASE Left Medical History Medical [...] on file Legal Sex Female 12:13 AM AT RISK PARAPROFESSIONAL Gender Identity Not on file Sexual Orientation Not on file 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 Not on file Not on file Obstetrics History Last Filed Vital Signs Vital Sign Reading Time Taken Comments Blood Pressure 122/74 10/16/2024 6:48 PM AT RISK PARAPROFESSIONAL Pulse 70 10/16/2024 6:48 PM AT RISK PARAPROFESSIONAL Temperature 36.7 C (98.1 F) 10/16/2024 6:48 PM AT RISK PARAPROFESSIONAL Respiratory Rate 17 10/16/2024 6:48 PM AT RISK PARAPROFESSIONAL Oxygen Saturation 98% 10/16/2024 6:48 PM AT RISK PARAPROFESSIONAL Inhaled Oxygen Concentration - - Weight 136.1 kg (300 lb) 10/16/2024 6:48 PM AT RISK PARAPROFESSIONAL per patient Height 182.9 cm (6') 10/16/2024 6:48 PM AT RISK PARAPROFESSIONAL Body Mass Index 40.69 10/16/2024 6:48 PM AT RISK PARAPROFESSIONAL Plan of Treatment Health Maintenance Due Date [...] DIGITAL MAMMOGRAPHY Routine 11/04/2013 2 :19 PM AT RISK PARAPROFESSIONAL from Last 3 Months or Most Recently [...] Maria Niño D.O. PS: PS Report ID: [id number] Reading Location: [id number] Procedure Note Ana Maria Niño, - 07/18/2025 [...] Maria Niño D.O. PS: PS Report ID: [id number] Reading Location: [id number] Blake Hernandez MD IMG XR PROCEDURES Final [...] Maria Niño D.O. PS: PS Report ID: [id number] Reading Location: [id number] Procedure Note Ana Maria Niño, DO - [...] Maria Niño D.O. PS: PS Report ID: [id number] Reading Location: [place] [address] Blake Hernandez MD IMG FLUOROSCOPY PROCEDURES Fi nal Result * Lipid panel (03/13/2019 1:03 AM CDT) Cholesterol 182 30 - 199 mg/dL [facility] Comment: Interpretive Data Ages < or = [...] revised on 2018. HDL 45 >=40 mg/dL [facility] Comment: Interpretive Data Ages < or [...] on 2018. LDL, calculated 121 <=129 mg/dL [facility] Comment: Interpretive Data Ages < [...] revised on 2018. Non-HDL Cholesterol 136 mg/dL [facility] Comment: Interpretive Data Ages < [...] last revised on 2018. Chol/HDL ratio 4 [facility] Blood specimen (specimen) 03/13/2019 1:03 AM CDT 03/13/2019 12:42 PM CDT Narrative [facility] - 03/14/2019 2:21 AM CDT Walker Lake MD LAB BLOOD ORDERABL ES Final Result Performing Organization Address [facility] de Phone Number [facility] [place] [address] * (ABNORMAL) Hemoglobin A1c (03/12/2019 2:48 PM CDT) Hgb A1C 9.3(H) 4.0 - 5.6 % [facility] Estimated Average Glucose 220 mg/dL [facility] Comment: The ADA recommends reporting an estimated Average Glucose (eAG) with all Hemoglobin A1c results using the equation derived from a study of 507 normal and diabetic adults. Minority populations were underrepresented and children were not included. (Diabetes Care 31:8543-2127, 2008). The eAG is not equivalent to a fasting glucose. Blood specimen (specimen) 03/12/2019 2:48 PM CDT 03/12/2019 3:01 PM CDT Narrative [facility] - 03/12/2019 9:09 PM CDT us Jhonny Headley MD LAB BLOOD ORDERABLES Final R esult Performing Organization Address [facility] Co de Phone Number [facility] Department [place] [address] * DIGITAL MAMMOGRAPHY (11/04/2013 2:19 PM AT RISK PARAPROFESSIONAL) Anatomical Region Laterality Modality Breast Mammography 11/04/2013 2:19 PM AT RISK PARAPROFESSIONAL Narrative 11/04/2013 7:55 PM AT RISK PARAPROFESSIONAL Screening Mamm Bi Acc#: [id number] DATE OF EXAM: Nov 04 2013 CLINICAL [...] Joan - 03/17/2017 Screening Mamm Bi Acc#: [id number] DATE OF EXAM: Nov 04 2013 CLINICAL [...] was utilized in interpretation of these images. [facility] utilizes a reminder system to notify patients of yearlymammograms. IMPRESSION: 1. NO FINDINGS SUSPICIOUS FOR MALIGNANCY. 2. NO SIGNIFICANT CHANGE COMPARED TO FILM SCREEN MAMMOGRAM ON 10/27/2006.BI-RADS CATEGORY 2 - BENIGN FINDINGS Interpreting Physician: BLAKE HANSON M.D. Read on: Nov 04 20132:28P Transcribed by: areli On: Nov 04 2013 3:06P Approved Electronically by: BLAKE HANSON M.D. on: Nov 04 20137:55P Ordering DR: KAVON COSBY Attending DR: KAVON COSBY us Historical Provider MD SAINZ MAMMO PROCEDURES Yue l Result from Last 3 Months or Most Recently Relevant to Health Maintenance Insurance [facility] PLAN [facility] 9 Advance Directives For more information, please contact: [phone] * Full Code (Latest Code Status on File) Date Activated Date Inactivated Comments 03/12/2019 4:27 PM 03/17/2019 10:36 PM Care Teams Melter Supervisor [employer] Relationship Specialty [place] [address] [address] [address] PCP - General Family Practice 05/27/22 [place] [id number] [address] [facility] [address] [place] [address] 03/12/19
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
--- NOTE | 2025-08-03 08:16 | WPDHPUPDATE1 ---
History and Physical Update Update Date/Time: 08/03/25 08:16 I reviewed patient's CT scan of the abdomen and pelvis from July [address] Lim. He feels the 5.8 x 5.2 cm abnormality is more likely architectural distortion or folds in the surface of the liver rather than a malignancy. The 1.9 cm abnormality in the left lobe of the liver is again noted but is not in and of itself suspicious. He agrees that the patient does need an MRI to better evaluate these abnormalities. He feels that the concern for these abnormalities representing a malignancy is low. but does need MRI f/u at some point. Patient tells me she could not get an MRI scheduled until later this month which has been a common problem. We will do the MRI at least a month after her surgery. I let her know about my review with Dr. Lim. History and Physical has been reviewed, including an updated exam of the patient. There are NO changes in the patient's condition. Patient's procedure will include partial fundoplication as discussed in the office visit. Risks, benefits, and alternatives have been discussed and questions answered. Patient agrees to proceed with procedure.
--- NOTE | 2025-08-03 11:06 | P.PNAN_ITS ---
Anes - Initial Pre Proc Eval Procedure: Operation Date: 08/03/25 12:00 Proposed Procedures p Robotic Repair Paraesophageal Hiatal Hernia with Fundoplication - Blake Hernandez MD Date/Time: 08/03/25 11:06 Surgeon: Blake Hernandez MD Pre Op Diagnosis: paraesophageal hiatal hernia Patient Data Age: 64 Gender: F Height: 1.83 m Weight: 115 kg Allergies Allergy/AdvReac Type Severity Reaction Status Date / Time bisacodyl (From Dulcolax Allergy Mild Swelling Verified 08/03/25 10:14 (bisacodyl)) amoxicillin Allergy Unknown Unknown Verified 08/03/25 10:14 codeine Allergy Unknown Hallucinati Verified 08/03/25 10:14 ng nitrofurantoin Allergy Unknown Unknown Verified 08/03/25 10:14 Sulfa (Sulfonamide Allergy Unknown Unknown Verified 08/03/25 10:14 Antibiotics) ciprofloxacin Allergy Swelling Verified 08/03/25 10:14 of Lip/Tongue/Throat tirzepatide (From Mounjaro) AdvReac Intermediate Other Verified 08/03/25 10:14 metformin AdvReac cramping, Verified 08/03/25 10:14 nausea, abdominal pain morphine AdvReac Anxiety Verified 08/03/25 10:14 spironolactone AdvReac hypercalcem Verified 08/03/25 10:14 ia warfarin (From Coumadin) AdvReac hemorrage Verified 08/03/25 10:14 Home Medications ?Medication ?Instructions ?Recorded ?Confirmed ?Type blood-glucose meter (wriplToThirdLove #1 ea 11/26/21 07/31/25 Rx Glucose Monitoring System kit) magnesium 250 mg tablet 250 mg PO DAILY 02/02/2310/17 History pen needle, diabetic 31 gauge x #100 ea 08/31/2407/31 Rx 3/16 (BD Ultra-Fine Mini Pen Needle) hyoscyamine sulfate 0.125 mg tablet 0.125 mg sublingua l Q6-8H PRN 09/30/24 07/31/25 Rx dyspepsia #120 tabs ibuprofen 800 mg tablet See Rx Instructions .Route 0 01/10/25 08/03/25 Rx .COMPLEX #270 tabs naloxone 4 mg/actuation nasal 4 mg intranasal Q2-3M MN N opioid 03/06/25 07/31/25 Rx spray (Narcan) overdose #2 ea empagliflozin 25 mg tablet See Rx Instructions .Route 03/20/25 08/03/25 Rx (Jardiance) .COMPLEX #90 tabs ferrous sulfate 325 mg (65 mg See Rx Instructions .Rou te 03/20/25 08/03/25 Rx iron) tablet,delayed release .COMPLEX #90 tabs rosuvastatin 5 mg tablet See Rx Instructions .Route 0 03/20/25 08/03/25 Rx .COMPLEX #90 tabs polyethylene glycol 3350 17 17 g PO DAILY PRN Constipa tion 03/27/25 07/31/25 Rx gram/dose oral powder (Miralax) #510 grams famotidine 20 mg tablet See Rx Instructions .Route 0 04/04/25 08/03/25 Rx .COMPLEX #90 tabs azelastine 137 mcg (0.1 %) nasal 1 spray intranasal Q1 2H #30 mL 04/19/25 08/03/25 Rx spray loratadine 10 mg tablet (Claritin) 10 mg PO DAILY #30 tabs 04/19/25 08/03/25 Rx ondansetron 4 mg disintegrating See Rx Instructions .R oute 05/04/25 07/31/25 Rx tablet .COMPLEX #20 tabs omeprazole 40 mg capsule,delayed See Rx Instructions . Route 06/13/25 08/03/25 Rx release .COMPLEX #90 caps blood-glucose meter #1 ea 07/05/25 07/31/25 Rx gabapentin 600 mg tablet See Rx Instructions .Route 0 07/05/25 08/03/25 Rx .COMPLEX #180 tabs blood sugar diagnostic (CareTouch #300 ea 07/06/2507/17 Rx Test Strip) lancets 33 gauge (CareTouch Twist #300 ea 07/06/2507/17 Rx Lancet) insulin glargine 100 unit/mL (3 See Rx Instructions hi bcut .COMPLEX 07/10/25 08/03/25 History mL) subcutaneous pen (Lantus Solostar U-100 Insulin) albuterol sulfate 90 mcg/actuation 2 puff inhalation Q 6-8H PRN 07/14/25 07/31/25 History aerosol inhaler shortness of breath or wheez ing alprazolam 0.5 mg tablet 0.5 mg PO TID PRN anxiety #9 0 tabs 07/24/25 07/31/25 Rx hydrocodone 10 mg-acetaminophen 1 tablet PO Q8H PRN pa in #90 tabs 07/24/25 07/31/25 Rx 325 mg tablet nystatin 100,000 unit/mL oral See Rx Instructions .Rou te 08/01/25 Rx suspension .COMPLEX #500 mL Patient hx anesthesia problems: none Family hx anesthesia problems: none Results Review: All pre-operative results and documents have been reviewed as part of the pre- operative evaluation. [facility] Past Medical History Medical History Peripheral neuropathy Thrush, oral UTI (urinary tract infection) LILIAN (acute kidney injury) Amputation of right lower extremity Positive colorectal cancer screening using Cologuard test Asthma Hypertension Obesities, morbid Therapeutic opioid-induced constipation (OIC) Nausea Epigastric pressure Early satiety Family hx of colon cancer Gastroparesis Hiatal hernia Amputation of right lower extremity below knee Anxiety Other technician terminal and repeater (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 therapy Peripheral polyneuropathy Phantom limb Uncontrolled type 2 diabetes mellitus with hyperglycemia Surgical History Surgical History History of carpal tunnel surgery of left wrist Hx of hysterectomy Family History Family History Mother Diabetes mellitus Heart failure Grandparent Diabetes mellitus Family history of pancreatic cancer Family history of colonic diverticulitis Sibling COPD (chronic obstructive pulmonary disease) Parkinson disease Father Parkinson disease Social History Social History Smoking status: Never smoker Second hand tobacco smoke exposure: No Alcohol intake: never Substance use: never Substance use type: does not use Do You Feel Safe in your Home?: Yes Lack of Transportation: No Lack of Food: Never True Current Housing: I Have Housing Concerned About Future Housing: No Difficulty Paying Gas/Electric Bills: No Difficulty Paying for Meds: No Currently Unemployed: No Education: Trade/Vocational Certificate Difficulty w/ Childcare or Family Care: No Living arrangements: with family Spiritual care concerns: No Anes - Eval Final PreProcedure Day of Procedure 08/03/25 11:06 Patient weight: obese Heart: regular rate and rhythm Lungs: clear to auscultation Airway: Mallampati scale class II Neurological: alert and oriented Last oral intake: >/= 8 hours ASA classification: III Emergent: no Anesthetic plan: proceed Anesthesia type and monitoring: general ETT and standard monitoring Results Review: All pre-operative results and documents have been reviewed as part of the pre- operative evaluation. Informed Consent: The patient's anesthetic plan and its attendant risks and benefits were discussed with the patient/family/POA. Questions were solicited and answers provided to the satisfaction of the patient/family/POA.
[2025-08-03] MEDS: ACETAMINOPHEN 500 MG TABLET 1000 MG PO (11:10)
[2025-08-03] MEDS: LACTATED RINGERS 1,000 ML 30 ML IV CONT ×3 (11:20→17:47)
[2025-08-03] MEDS: KETOROLAC 15 MG/ML VIAL (*BKC) IV PUSH (11:30)
[2025-08-03 11:35] LABS: Hematocrit 42.0 % (37.0-47.0); Hemoglobin 13.2 g/dL (12.0-15.0); Mean Corpuscular HGB Conc 31.4 g/dl (32-36); Mean Corpuscular Hemoglobin 28.0 pg (26-34); Mean Corpuscular Volume 89.2 fl (80-100); Platelet Count Result 207 k/mm3 (150-375); Red Blood Count 4.71 M/mm3 (4.2-5.4); White Blood Count 6.4 K/mm3 (4.5-10.0)
[2025-08-03 11:57] LABS: Anion Gap 7 mmol/L (4-12); Blood Urea Nitrogen 16 mg/dL (7-17); Calcium 9.5 mg/dL (8.4-10.2); Carbon Dioxide 25 mmol/L (22-30); Chloride 108 mmol/L (98-107); Estimated CRCL calculation 77 ml/min; Estimated Glomerular Filt Rate 59; Glucose 149 mg/dL (65-110); Potassium 4.0 mmol/L (3.4-5.0); Sodium 140 mmol/L (137-145)
[2025-08-03] MEDS: ceFAZolin 2 GM in SODIUM CHLORIDE 0.9% IV 50 ML 100 ML IVPB (12:13)
[2025-08-03] MEDS: BUPIVACAINE/EPINEPHRINE 0.5% 50 ML VIAL 30 ML INFILTRATE (13:02)
--- NOTE | 2025-08-03 14:14 | S_PTH ---
PATIENT: Marge Alarcon LOC: [id number] U#:[id number] AGE/SX: 64/F ROOM: 249 RE08/03/[address]: Dinorah Sanabria PA-C : 1960 BED: 01 DIS: 08/09/2025 SPEC #: [id number] RECD: 08/04/25 07:29 STATUS: HOWIE GEORGES #: [id number] SOHAN: 08/03/25 14:[address]: Blake Hernandez DEPT: [facility] Surgical RECD BY: Elaine Sapp ENTERED: 08/04/25 07:29 SP TYPE: Surgical OTHR DR: LYNDA Correa APRN Tissues: A - Hernia Sac Procedures: Gross and Microscopic Level 2 Hematoxylin and Eosin Stain
--- NOTE | 2025-08-03 17:50 | W.PM.PROC2 ---
Procedure Note - Detailed Date of Procedure 08/03/25 Pre-op Diagnosis paraesophageal hiatal hernia, GERD, dysphagia Post-op Diagnosis Same Procedure Performed Robotic laparoscopic repair large paraesophageal hiatal hernia with fundoplasty and fundopexy Surgeon Blake Hernandez MD [employer] Lorrie DEL VALLE, Mindy DEL VALLE Anesthesia General and Local Indications Patient has had a long-standing esophageal hiatal hernia which has gotten much worse. She has severe dysphagia, difficulty eating with pain after eating, she is still has heartburn. EGD showed paraesophageal hernia with an inability to pass the scope into the duodenum. Upper GI showed spontaneous reflux and difficulty passing contrast beyond the stomach. It also showed a shortened esophagus. She is taken to surgery now for repair with fundoplication. Findings Over half the stomach was in the mediastinum. The portion in the mediastinum was very dilated and elongated likely due to poor passage of gas and fluids distally. The hiatal hernia was exceptionally large. The hernia sac was extremely large and took a long time to dissect and removed from the abdomen. Esophagus was shortened and the mediastinal dissection was extensive to gain adequate length for the stomach to rest comfortably in the abdomen. The surgery took nearly 5 hours which is twice as long as is typical even for a large hernia such as this. Description of Procedure Patient was taken to surgery and induced into general anesthesia. Her legs were in exterior interior specialist bars and accommodation was made for the right below-knee amputation so the patient would be secure on the table. The abdomen is prepped and draped. A left subcostal trocar was placed 1st using applied Medical optical trocar. Once we were in the peritoneal cavity and insufflation was adequate, we put the patient in reverse Trendelenburg at 22?. The robotic trocars were then placed in the usual fashion. An 11 mm assistant professor of music port was placed in the mid abdomen at the midline. The robot was brought into the field and the arms were docked. The camera was targeted and instruments were positioned correctly. The surgeon then went to the robotic console. The vessel sealer was used for hemostasis and nearly all the dissection. The hepato gastric ligament was divided exposing the left marlon. Even though the hiatal hernia was quite large, the stomach was socked into the defect with both the lesser omentum and the greater omentum herniated as well. I gained access to the mediastinum by dividing the hernia sac at the apex of the hiatus. This was difficult as it was such a large hernia. Some dissection on to the right marlon and the left marlon was performed to allow better access and dissection of the hiatal hernia was performed further. I then divided the hernia sac from the right marlon. There was a lot of fatty tissue near the posterior aspect of the right marlon. I went back to the apex and then proceeded to divide the hernia sac from the left marlon as far posterior as possible. Was then able to reduce probably 80% of the stomach. Stomach was exceptionally large as I discussed earlier. I was able to find the greater curvature and then divide the greater omentum from the greater curvature using the vessel sealer. Eventually I entered the lesser sac. Dissected towards the esophagogastric junction dividing the greater omentum from the greater curvature of the stomach with the LigaSure. Eventually we came to the area of the left marlon. Retraction of the stomach to the patient's right allowed exposure. The hernia sac was exceptionally large as I discussed earlier. I was able to dissect this down to the junction of the left and right crura. I dissected around the outside of the hernia sac in this area and slowly the hernia sac began to be reduced into the abdominal cavity. After I had reduced as much of the hernia sac as possible on the patient's left, I then went back to the right side and finished dissecting the peritoneum from the posterior aspect of the right marlon and also dissected under the gastroesophageal junction and just inside the mediastinum further reducing the hernia sac. Eventually the hernia sac was adequately reduced. It was so large it was obscuring visualization. I then spent a very long time dividing the hernia sac with the vessel sealer and removing it in multiple pieces. I had most of it removed when I went ahead and began the mediastinal dissection. I dissected anteriorly well up into the mediastinum. I then went to the left-sided the esophagus and freed that from adhesions both on the left side and to the aorta. I then went to the right side and completed the mediastinal dissection circumferentially. Care was taken throughout to avoid injury to the esophagus, the vagus nerves, and the pleura. I then went back to the abdomen and excised additional hernia sac and removed from the abdomen. The fat pad at the esophagogastric junction was excised and removed with the vessel sealer as well. Some of the hernia sac on the right side of the esophagus and stomach was removed as it was extensive and would be an obstacle for the fundoplication. Once all the hernia sac was excised I again reviewed the esophagus. It still did not have adequate length in the intra-abdominal portion. I then went back to the mediastinum and completely re did the esophageal dissection. I did the anterior dissection farther up in the mediastinum and then in similar fashion, dissected the left side and the right side of the esophagus. Looking back after this additional mediastinal dissection, I now had 4-5 cm of intra-abdominal esophagus. I proceeded with the closure of the hiatus. 0 Ethibond suture were placed in [id number] fashion and the hiatus was closed with 2 of these [id number] suture. Hiatus was not in any way compressing the esophagus. I then passed the fundus of the stomach under the esophagus and positioned it on the right side of the esophagus. I then placed 3 different 0 Ethibond sutures on the right side to perform partial fundoplication and fundal pexy. The 1st 2 sutures included esophagus, hiatus, and fundus. The 3rd suture sutured the hiatus to the fundus. I then went to the left side of the esophagus. In similar fashion, the 1st 2 sutures included fundus, hiatus, and esophagus proceeding from posterior to the apex of the hiatus. A 3rd suture was then used to suture the fundus to the apex of the hiatus. Once completed, this was about a 270 degree wrap which included pexing esophagus and fundoplication to the hiatus. All looked good. We then removed the instruments. The robot was undocked. We evacuated CO2 and returned the patient to a supine position. The trocars were removed. Skin wounds were closed with subcuticular 4-0 Monocryl skin suture. The wounds were dressed with Exofin surgical adhesive. The patient was awakened and extubated. She transferred to recovery in good condition. Sponge and needle counts were correct x2. Estimated Blood Loss -150 Drains Yes (Kirkland catheter) Pathology None sent Complications None Condition Stable Disposition PACU [facility] Billing Surgery - Charge Forward: Surgery Billing (Robotic laparoscopic repair large paraesophageal hiatal hernia with fundoplasty and fundopexy)
[2025-08-03] MEDS: fentaNYL CITRATE INJ (*CRX) 100 MCG/2 ML VIAL 25 MCG IV PUSH ×8 (18:23→19:14)
[2025-08-03] MEDS: ONDANSETRON INJ 4 MG/2 ML VIAL IV PUSH ×2 (18:37→20:16)
--- NOTE | 2025-08-03 19:49 | ADMGEN ---
This patient, Marge Alarcon, was admitted to Medical Room 249-01. Patient/family oriented to hospital policies and general routines including ID bracelet, bed and alarms, visiting hours, pain management, procedures, bathroom and other care routines, personal items, smoking policy, room service/diet, and visiting hours. Information on how to activate the Rapid Response Team has been discussed. Patient/Family are encouraged to report perceived risks to care and to ask questions if they do not understand what they are told or what they should do.
[2025-08-03] MEDS: ROSUVASTATIN 5 MG TABLET BY MOUTH (20:01)
[2025-08-03] MEDS: GABAPENTIN 300 MG CAPSULE 600 MG BY MOUTH (20:01)
[2025-08-03] MEDS: LACTATED RINGERS 1,000 ML 100 ML IV CONT (20:01)
[2025-08-03] MEDS: oxyCODONE HCL (*CRX) 5 MG TAB IR 10 MG PO (20:04)
--- NOTE | 2025-08-03 20:38 | PM.IMCN ---
Assessment and Plan Assessment and plan (1) S/P laparoscopic fundoplication: Code(s): Z98.890 - Other specified postprocedural states Status: Acute Assessment and Plan: Date of Procedure 08/03/25 Pre-op Diagnosis paraesophageal hiatal hernia, GERD, dysphagia Post-op Diagnosis Same Procedure Performed Robotic laparoscopic repair large paraesophageal hiatal hernia with fundoplasty and fundopexy Surgeon Blake Waller MD -postop care per Dr. Waller - the patient is complaining of having excessive gas at this time. The surgeon was notified per nursing staff about excessive gas. No new orders received. Encouraged the patient to move in bed as much as possible. - DVT prophylaxis is per Dr. Waller. -pain management per surgical team. 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 - Check A1c if not performed in the last 3- months (A1c 7.5 ) - Accu-Cheks AC and HS with sliding scale insulin. (3) Paraesophageal hiatal hernia: Code(s): K44.9 - Diaphragmatic hernia without obstruction or gangrene Status: Acute Assessment and Plan: - Postop care per Dr. Waller - pain management per Dr. Waller (4) Phantom pain after amputation of lower extremity: Code(s): G54.6 - Phantom limb syndrome with pain Status: Chronic Assessment and Plan: - continue with patient's gabapentin Plan thank you for allowing us to consult on this patient will continue to comanage this patient along side with your treatment plan. Feel free to call the hospitalist group at any time for any questions or concerns. HPI Date of Consult Consult date: 08/04/25 Requesting Physician: Blake Waller MD Primary Care Provider: Lakshmi Ramos APRN Consult Narrative Narrative: Marge Alarcon is a 64 year old female With severe heartburn, dysphagia and regurgitation. The patient has still with a hiatal hernia since the age of 20[address] scan on 07/07/2025 showed the following1. There is a 5.0 x 5.8 x 5.2 cm heterogeneous masslike structure in the right lobe of the liver near the liver dome. The finding heterogeneously enhances with contrast administration. There is a 1.3 cm central low-density region postcontrast. The finding is nonspecific. A biopsy is recommended. 2. Indeterminant 1.9 cm low-density lesion in the medial segment of the left lobe of the liver anteriorly. The finding does not enhance with contrast ministration. A liver mass MRI is recommended. 3. There is a 2.3 cm left adrenal nodule. CT findings suggest an adrenal adenoma. A follow-up CT study in 6 months recommended. 4. Stable hiatal hernia. 5. Cholelithiasis. the patient was taken to surgery today on 08/03/[address] Blake waller for a robotic laparoscopic repair of large paraesophageal hiatal hernia with fundoplasty and fundopexy. the hospitalist team was consulted for medical management on the date of service of 08/03/2025. 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) Integumentary/Breasts: Skin/Breast: Reports alopecia Neurologic: Reports as per HPI Endocrine: Endocrine: Reports as per HPI [facility] Past Medical History Medical History (Updated 08/03/25 @ 21:01 by Jesenia Yañez APRN) Hypertension Peripheral neuropathy Thrush, oral UTI (urinary tract infection) LILIAN (acute kidney injury) Amputation of right lower extremity Positive colorectal cancer screening using Cologuard test Asthma Obesities, morbid Therapeutic opioid-induced constipation (OIC) Nausea Epigastric pressure Early satiety Family hx of colon cancer Gastroparesis Hiatal hernia Amputation of right lower extremity below knee Anxiety 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 (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 therapy Peripheral polyneuropathy Phantom limb Uncontrolled type 2 diabetes mellitus with hyperglycemia Surgical History Surgical History (Updated 08/03/25 @ 20:55 by Jesenia Yañez APRN) History of carpal tunnel surgery of left wrist Hx of hysterectomy Family History Family History Mother Diabetes mellitus Heart failure Grandparent Diabetes mellitus Family history of pancreatic cancer Family history of colonic diverticulitis Sibling COPD (chronic obstructive pulmonary disease) Parkinson disease Father Parkinson disease Social History Social History (Updated 08/03/25 @ 20:56 by Jesenia Yañez APRN) Social History: she currently lives with her . She does not work outside the home. Code status: full code Smoking status: Never smoker Second hand tobacco smoke exposure: No Alcohol intake: never Substance use: never Substance use type: does not use Do You Feel Safe in your Home?: Yes Lack of Transportation: No Lack of Food: Never True Current Housing: I Have Housing Concerned About Future Housing: No Difficulty Paying Gas/Electric Bills: No Difficulty Paying for Meds: No Currently Unemployed: No Education: Trade/Vocational Certificate Difficulty w/ Childcare or Family Care: No Living arrangements: with family Spiritual care concerns: No Meds Home Medications and Allergies Home Medications ?Medication ?Instructions ?Recorded ?Confirmed ?Type blood-glucose meter (CareTouch #1 ea 11/26/21 07/31/25 Rx Glucose Monitoring System kit) magnesium 250 mg tablet 250 mg PO DAILY 02/02/23 08/03/25 History pen needle, diabetic 31 gauge x #100 ea 08/31/24 07/31/25 Rx 3/16 (BD Ultra-Fine Mini Pen Needle) hyoscyamine sulfate 0.125 mg tablet 0.125 mg sublingual Q6-8H PRN 09/30/24 07/31/25 Rx dyspepsia #120 tabs ibuprofen 800 mg tablet See Rx Instructions .Route 01/10/25 08/03/25 Rx .COMPLEX #270 tabs naloxone 4 mg/actuation nasal 4 mg intranasal Q2-3M PRN opioid 03/06/25 07/31/25 Rx spray (Narcan) overdose #2 ea empagliflozin 25 mg tablet See Rx Instructions .Route 03/20/25 08/03/25 Rx (Jardiance) .COMPLEX #90 tabs ferrous sulfate 325 mg (65 mg See Rx Instructions .Route 03/20/25 08/03/25 Rx iron) tablet,delayed release .COMPLEX #90 tabs rosuvastatin 5 mg tablet See Rx Instructions .Route 03/20/25 08/03/25 Rx .COMPLEX #90 tabs polyethylene glycol 3350 17 17 g PO DAILY PRN Constipation 03/27/25 07/31/25 Rx gram/dose oral powder (Miralax) #510 grams famotidine 20 mg tablet See Rx Instructions .Route 04/04/25 08/03/25 Rx .COMPLEX #90 tabs azelastine 137 mcg (0.1 %) nasal 1 spray intranasal Q12H #30 mL 04/19/25 08/03/25 Rx spray loratadine 10 mg tablet (Claritin) 10 mg PO DAILY #30 tabs 04/19/25 08/03/25 Rx ondansetron 4 mg disintegrating See Rx Instructions .Route 05/04/25 07/31/25 Rx tablet .COMPLEX #20 tabs omeprazole 40 mg capsule,delayed See Rx Instructions .Route 06/13/25 08/03/25 Rx release .COMPLEX #90 caps blood-glucose meter #1 ea 07/05/25 07/31/25 Rx gabapentin 600 mg tablet See Rx Instructions .Route 07/05/25 08/03/25 Rx .COMPLEX #180 tabs blood sugar diagnostic (CareTouch #300 ea 07/06/25 07/31/25 Rx Test Strip) lancets 33 gauge (CareTouch Twist #300 ea 07/06/25 07/31/25 Rx Lancet) insulin glargine 100 unit/mL (3 See Rx Instructions subcut .COMPLEX 07/10/25 08/03/25 History mL) subcutaneous pen (Lantus Solostar U-100 Insulin) albuterol sulfate 90 mcg/actuation 2 puff inhalation Q6-8H PRN 07/14/25 07/31/25 History aerosol inhaler shortness of breath or wheezing alprazolam 0.5 mg tablet 0.5 mg PO TID PRN anxiety #90 tabs 07/24/25 07/31/25 Rx hydrocodone 10 mg-acetaminophen 1 tablet PO Q8H PRN pain #90 tabs 07/24/25 07/31/25 Rx 325 mg tablet nystatin 100,000 unit/mL oral See Rx Instructions .Route 08/01/25 08/03/25 Rx suspension .COMPLEX #500 mL Allergies Allergy/AdvReac Type Severity Reaction Status Date / Time bisacodyl (From Dulcolax Allergy Mild Swelling Verified 08/03/25 10:14 (bisacodyl)) amoxicillin Allergy Unknown Unknown Verified 08/03/25 10:14 codeine Allergy Unknown Hallucinati Verified 08/03/25 10:14 ng nitrofurantoin Allergy Unknown Unknown Verified 08/03/25 10:14 Sulfa (Sulfonamide Allergy Unknown Unknown Verified 08/03/25 10:14 Antibiotics) ciprofloxacin Allergy Swelling Verified 08/03/25 10:14 of Lip/Tongue/Throat tirzepatide (From Mounjaro) AdvReac Intermediate Other Verified 08/03/25 10:14 metformin AdvReac cramping, Verified 08/03/25 10:14 nausea, abdominal pain morphine AdvReac Anxiety Verified 08/03/25 10:14 spironolactone AdvReac hypercalcem Verified 08/03/25 10:14 ia warfarin (From Coumadin) AdvReac hemorrage Verified 08/03/25 10:14 Vital Signs Vital Signs - 24 hr 08/03/25 11:48 08/03/25 17:47 08/03/25 18:00 Temperature 97.2 F L 99.0 F Pulse Rate 72 91 90 Respiratory Rate 18 22 H 22 H Blood Pressure 126/70 129/80 141/78 H Pulse Oximetry 98 92 96 Oxygen Delivery Room Air Simple Face Mask Simple Face Mask Oxygen Flow Rate 10 10 08/03/25 18:15 08/03/25 18:25 08/03/25 18:30 Temperature Pulse Rate 92 87 Respiratory Rate 18 16 Blood Pressure 143/83 H 146/90 H Pulse Oximetry 92 97 97 Oxygen Delivery Simple Face Mask Simple Face Mask Simple Face Mask Oxygen Flow Rate 10 8 6 08/03/25 18:35 08/03/25 18:39 08/03/25 18:45 Temperature Pulse Rate 85 Respiratory Rate 14 Blood Pressure 147/84 H Pulse Oximetry 96 92 96 Oxygen Delivery Room Air Nasal Cannula Nasal Cannula Oxygen Flow Rate 3 3 08/03/25 18:50 08/03/25 19:00 08/03/25 19:11 Temperature 97.6 F Pulse Rate 81 88 Respiratory Rate 12 16 Blood Pressure 137/78 140/80 Pulse Oximetry 96 98 Oxygen Delivery Nasal Cannula Nasal Cannula Oxygen Flow Rate 3 3 08/03/25 19:29 08/03/25 19:42 08/03/25 20:23 Temperature 97.6 F 97.7 F 97.1 F L Pulse Rate 83 82 84 Respiratory Rate 16 16 16 Blood Pressure 139/74 144/80 H 141/90 H Pulse Oximetry 93 94 93 Oxygen Delivery Oxygen Flow Rate Exam Const: General: cooperative, comfortable, no acute distress, alert, awake and overweight Nutritional Appearance: well nourished Orientation/consciousness: patient oriented x3 and No confusion HENMT: Head: normocephalic and atraumatic Eyes: Conjunctivae: conjunctivae normal EOM: EOMs intact bilaterally Resp: Effort & Inspection: normal respiratory effort Auscultation: clear to auscultation bilaterally Cardio: Rate: regular rate Rhythm: regular rhythm Heart sounds: no gallops, no murmurs and no rubs GI: Inspection: non-distended GI Palp: Yes Soft to palpation, No Tenderness to palpation present (GI), No Hepatomegaly present and No Splenomegaly present Other: 5 laparoscopic incisions noted to be well approximated without any drainage. Urinary Catheter: Urinary Catheter: patent and draining and urine clear Skin: Lesions: no lesions Rashes: no rashes Neuro: General: no focal motor deficits Extrem: General: no clubbing, cyanosis or edema and edema Right lower extremity: lower leg (right BKA) Psych: Affect: normal affect Thought process: Normal thought process present Insight: Good insight present (Psych) Results Labs 08/04/25 04:46 08/04/25 04:46 Labs: Short CBC 08/03/25 Range/Units 10:24 WBC 6.4 (4.5-10.0) K/mm3 Hgb 13.2 (12.0-15.0) g/dL Hct 42.0 (37.0-47.0) % Plt Count 207 (150-375) k/mm3 BMP 08/03/25 10:24 Sodium 140 Potassium 4.0 Chloride 108 H Carbon Dioxide 25 BUN 16 Creatinine 0.96 Glucose 149 H Calcium 9.5 Quality VTE Prophylaxis VTE prophylaxis: mechanical ordered and pharmacologic ordered
[2025-08-03 21:30] LABS: Hemoglobin A1C 7.5 % (<5.7)
[2025-08-03] MEDS: ENOXAPARIN 30 MG/0.3 ML SYRINGE SUB-Q (23:29)
[2025-08-03] MEDS: HYDROmorphone HCL INJ (*CRX) 1 MG/ML SYR IV PUSH (23:37)
[2025-08-04] VITALS (7 sets, daily range): BP systolic 111–120; BP diastolic 48–60; PULSE 74–84; RESP 16–20; TEMP 36.3–36.8; O2SAT 90–96
[2025-08-04] MEDS: oxyCODONE HCL (*CRX) 5 MG TAB IR 10 MG PO (03:20)
[2025-08-04] MEDS: LACTATED RINGERS 1,000 ML 100 ML IV CONT ×2 (05:40→15:19)
[2025-08-04 05:52] LABS: Hematocrit 34.3 % (37.0-47.0); Hemoglobin 10.7 g/dL (12.0-15.0); Mean Corpuscular HGB Conc 31.2 g/dl (32-36); Mean Corpuscular Hemoglobin 28.5 pg (26-34); Mean Corpuscular Volume 91.2 fl (80-100); Platelet Count Result 163 k/mm3 (150-375); Red Blood Count 3.76 M/mm3 (4.2-5.4); White Blood Count 7.7 K/mm3 (4.5-10.0)
[2025-08-04 06:14] LABS: Anion Gap 8 mmol/L (4-12); Blood Urea Nitrogen 18 mg/dL (7-17); Calcium 8.4 mg/dL (8.4-10.2); Carbon Dioxide 23 mmol/L (22-30); Chloride 107 mmol/L (98-107); Estimated CRCL calculation 70 ml/min; Estimated Glomerular Filt Rate 53; Glucose 132 mg/dL (65-110); Potassium 4.5 mmol/L (3.4-5.0); Sodium 138 mmol/L (137-145)
--- NOTE | 2025-08-04 07:48 | PM.PNGS ---
Progress Note: A&P Assessment and Plan (1) Paraesophageal hiatal hernia: Code(s): K44.9 - Diaphragmatic hernia without obstruction or gangrene Status: Chronic Assessment and Plan: doing okay postop day 1. After repair. Recommend clear liquids for today and take those sparingly. Up in chair. Work on spirometer and deep breathing. (2) S/P laparoscopic fundoplication: Code(s): Z98.890 - Other specified postprocedural states Status: Acute Assessment and Plan: Surgery was nearly 5 hours and finished just 14 hours ago. She is having some dysphagia which is expected. Overall looks pretty good. 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 (5) Anemia: Code(s): D64.9 - Anemia, unspecified Status: Chronic Assessment and Plan: Follow H&H daily (6) Hx of right BKA: Code(s): Z89.511 - Acquired absence of right leg below knee Status: Chronic Subjective Subjective Date/Time Seen: 08/04/25 07:48 Post Op day: 1 Patient reports: still having pain (Substernal chest, hurts to move and take deep breaths. Typical postoperative pain), no bowel movement and afebrile Interval history: did not sleep much last night as she was uncomfortable. Even small amounts of liquids cause some pain when swallowing. Does not feel short of breath but hurts to take a deep breath. Exam Const: General: comfortable and no acute distress Orientation/consciousness: patient oriented x3 Resp: Effort & Inspection: normal respiratory effort ( able to take deep breaths pretty well.) Auscultation: clear to auscultation bilaterally Cardio: Rate: regular rate Rhythm: regular rhythm GI: Inspection: incision ( Healing well) GI Palp: Yes Soft to palpation, Yes Tenderness to palpation present (GI) ( minimal tenderness), No Guarding due to palpation present (GI) and No Rebound tenderness present Auscultation: normal bowel sounds Neuro: General: patient oriented x3 and no focal motor deficits Psych: Affect: normal affect Insight: Good insight present (Psych) Judgement: Good judgement present (Psych) Objective Data Vital Signs Vital Signs: Vital Signs - 24 hr 08/03/25 11:48 08/03/25 17:47 08/03/25 18:00 Temperature 36.2 C L 37.2 C Pulse Rate 72 91 90 Respiratory Rate 18 22 H 22 H Blood Pressure 126/70 129/80 141/78 H Pulse Oximetry 98 92 96 Oxygen Delivery Room Air Simple Face Mask Simple Face Mask Oxygen Flow Rate 10 10 08/03/25 18:15 08/03/25 18:25 08/03/25 18:30 Temperature Pulse Rate 92 87 Respiratory Rate 18 16 Blood Pressure 143/83 H 146/90 H Pulse Oximetry 92 97 97 Oxygen Delivery Simple Face Mask Simple Face Mask Simple Face Mask Oxygen Flow Rate 10 8 6 08/03/25 18:35 08/03/25 18:39 08/03/25 18:45 Temperature Pulse Rate 85 Respiratory Rate 14 Blood Pressure 147/84 H Pulse Oximetry 96 92 96 Oxygen Delivery Room Air Nasal Cannula Nasal Cannula Oxygen Flow Rate 3 3 08/03/25 18:50 08/03/25 19:00 08/03/25 19:11 Temperature 36.4 C Pulse Rate 81 88 Respiratory Rate 12 16 Blood Pressure 137/78 140/80 Pulse Oximetry 96 98 Oxygen Delivery Nasal Cannula Nasal Cannula Oxygen Flow Rate 3 3 08/03/25 19:29 08/03/25 19:42 08/03/25 20:00 Temperature 36.4 C 36.5 C Pulse Rate 83 82 Respiratory Rate 16 16 Blood Pressure 139/74 144/80 H Pulse Oximetry 93 94 91 Oxygen Delivery Nasal Cannula Oxygen Flow Rate 3 08/03/25 20:23 08/03/25 21:00 08/03/25 21:00 Temperature 36.2 C L 36.6 C Pulse Rate 84 70 Respiratory Rate 16 14 Blood Pressure 141/90 H 138/77 Pulse Oximetry 93 94 94 Oxygen Delivery Nasal Cannula Oxygen Flow Rate 2 08/03/25 21:30 08/03/25 23:40 08/04/25 05:50 Temperature 36.5 C 36.7 C Pulse Rate 80 84 Respiratory Rate 16 16 Blood Pressure 131/61 111/56 L Pulse Oximetry 94 94 92 Oxygen Delivery Nasal Cannula Oxygen Flow Rate 2 Intake/Output Intake/Output: Intake & Output 08/01/25 08/02/25 08/03/25 08/04/25 23:59 23:59 23:59 23:59 Intake Total 1250 1115 Output Total 70 600 Balance 1180 515 Meds/Results Medications: Active Medications Generic Name Dose Route Start Last Admin Trade Name Freq PRN Reason Stop Dose Admin Acetaminophen 650 mg 08/03/25 19:22 Acetaminophen 325 Mg Tablet PO Q4H PRN Mild Pain (1-3) or Fever Albuterol 2 puff 08/03/25 19:14 Albuterol Sulfate (*Sp) Aerosol 1 Puff INHALATION Q6-8H PRN Shortness Of Breath Or Wheezing Alprazolam 0.5 mg 08/03/25 19:14 Alprazolam (*Crx) 0.5 Mg Tablet PO TID PRN Anxiety Azelastine HCl 1 spray 08/03/25 19:14 Azelastine Hcl Nasal 0.1% 137 Mcg/Spr 30 Ml Btl NASAL Q12H PRN ALLERGIES Dextrose 12.5 gm 08/03/25 19:14 Dextrose 50% 25 Gm/50 Ml Syringe IV PUSH PRN PRN Hypoglycemia Protocol Enoxaparin Sodium 30 mg 08/03/25 21:00 08/03/25 23:29 Enoxaparin 30 Mg/0.3 Ml Syringe SUB-Q 30 mg Q12HR AIDAN Administration Gabapentin 600 mg 08/03/25 19:25 08/03/25 20:01 Gabapentin 300 Mg Capsule BY MOUTH 600 mg TID AIDAN Administration Glucagon 1 mg 08/03/25 19:14 Glucagon For Inj 1 Mg Vial IM PRN PRN Hypoglycemia Protocol Glucose 15 gm 08/03/25 19:14 Glucose Oral Gel 15 Gm Of Glucse In 37.5 Gm Tube PO PRN PRN Hypoglycemia Protocol Hydromorphone HCl 1 mg 08/03/25 19:14 08/03/25 23:37 Hydromorphone Hcl Inj (*Crx) 1 Mg/Ml Syr IV PUSH 1 mg Q2H PRN Administration Breakthrough Pain Rated 4-6 or NPO Hydromorphone HCl 2 mg 08/03/25 19:24 Hydromorphone Hcl Inj (*Crx) 2 Mg/Ml Vial IV PUSH Q2H PRN Breakthrough Pain Rated 7-10 or NPO Lactated Ringer's 1,000 mls @ 100 mls/hr 08/03/25 19:14 08/04/25 05:40 Lr - Lactated Ringers Iv IV CONT 100 mls/hr .Q10H AIDAN Administration Dextrose 1,000 mls @ 100 mls/hr 08/03/25 21:04 Dextrose 5% 1,000 Ml IVPB PRN PRN Hypoglycemia Protocol Magnesium Oxide 200 mg 08/04/25 09:00 Magnesium Oxide 200 Mg Tablet PO DAILY AIDAN Naloxone HCl 0.1 mg 08/03/25 19:14 Naloxone Hcl 0.4 Mg/Ml Vial IV PUSH Q2M PRN Opiate Reversal Ondansetron HCl 4 mg 08/03/25 19:14 08/03/25 20:16 Ondansetron Inj 4 Mg/2 Ml Vial IV PUSH 4 mg Q4H PRN Administration Nausea And Vomiting Oxycodone HCl 15 mg 08/03/25 19:22 Oxycodone Hcl (*Crx) 5 Mg Tab Ir PO Q6H PRN Pain Rated 7-10 Oxycodone HCl 10 mg 08/03/25 19:22 08/04/25 03:20 Oxycodone Hcl (*Crx) 5 Mg Tab Ir PO 10 mg Q6H PRN Administration Pain Rated 4-6 Rosuvastatin Calcium 5 mg 08/03/25 19:20 08/03/25 20:01 Rosuvastatin 5 Mg Tablet BY MOUTH 5 mg QPM AIDAN Administration Labs Labs: Laboratory Results - last 24 hr 08/03/25 08/03/25 08/03/25 10:24 11:27 17:53 WBC 6.4 RBC 4.71 Hgb 13.2 Hct 42.0 MCV 89.2 MCH 28.0 MCHC 31.4 L RDW 16.7 H Plt Count 207 MPV 11.4 H Sodium 140 Potassium 4.0 Chloride 108 H Carbon Dioxide 25 Anion Gap 7 BUN 16 Creatinine 0.96 Estim Creat Clear Calc 77 Estimated GFR 59 Glucose 149 H POC Capillary Glucose 139 H 233 H Hemoglobin A1c 7.5 H Calcium 9.5 08/03/25 08/04/25 20:12 04:46 WBC 7.7 RBC 3.76 L Hgb 10.7 L Hct 34.3 L MCV 91.2 MCH 28.5 MCHC 31.2 L RDW 16.8 H Plt Count 163 MPV 11.9 H Sodium 138 Potassium 4.5 Chloride 107 Carbon Dioxide 23 Anion Gap 8 BUN 18 H Creatinine 1.05 H Estim Creat Clear Calc 70 Estimated GFR 53 L Glucose 132 H POC Capillary Glucose 224 H Hemoglobin A1c Calcium 8.4
[2025-08-04] MEDS: HYDROmorphone HCL INJ (*CRX) 2 MG/ML VIAL IV PUSH ×2 (07:55→20:33)
[2025-08-04] MEDS: ENOXAPARIN 30 MG/0.3 ML SYRINGE SUB-Q (08:02)
[2025-08-04] MEDS: MAGNESIUM OXIDE 200 MG TABLET PO (09:46)
[2025-08-04] MEDS: oxyCODONE (*CRX) 5 MG/5 ML ORAL SOLN IR 10 MG PO (09:48)
[2025-08-04] MEDS: GABAPENTIN 400 MG CAPSULE 1200 MG BY MOUTH ×3 (11:00→21:44)
[2025-08-04] MEDS: oxyCODONE (*CRX) 5 MG/5 ML ORAL SOLN IR 15 MG PO ×2 (13:40→17:52)
--- NOTE | 2025-08-04 13:47 | PM.IMPN ---
Progress Note: A&P Assessment and Plan (1) S/P laparoscopic fundoplication: Code(s): Z98.890 - Other specified postprocedural states Status: Acute Assessment and Plan: Date of Procedure 08/03/25 Pre-op Diagnosis paraesophageal hiatal hernia, GERD, dysphagia Post-op Diagnosis Same Procedure Performed Robotic laparoscopic repair large paraesophageal hiatal hernia with fundoplasty and fundopexy Surgeon Blake Waller MD -postop care per Dr. Waller - the patient is complaining of having excessive gas at this time. The surgeon was notified per nursing staff about excessive gas. No new orders received. Encouraged the patient to move in bed as much as possible. - DVT prophylaxis is per Dr. Waller. -pain management per surgical team. 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 - Check A1c if not performed in the last 3- months (A1c 7.5 ) - Accu-Cheks AC and HS with sliding scale insulin. hga1c 7.5 bs reviewed and stable (3) Paraesophageal hiatal hernia: Code(s): K44.9 - Diaphragmatic hernia without obstruction or gangrene Status: Chronic Assessment and Plan: - Postop care per Dr. Waller - pain management per Dr. Waller (4) Phantom pain after amputation of lower extremity: Code(s): G54.6 - Phantom limb syndrome with pain Status: Chronic Assessment and Plan: - continue with patient's gabapentin Plan thank you for allowing us to consult on this patient will continue to comanage this patient along side with your treatment plan. Feel free to call the hospitalist group at any time for any questions or concerns. Time Spent With Patient Time with patient: 25 - 35 minutes Subjective Date/time seen: 08/04/25 13:47 Interval history: Marge Alarcon is a 64 year old female With severe heartburn, dysphagia and regurgitation. The patient has still with a hiatal hernia since the age of 20[address] scan on 07/07/2025 showed the following1. There is a 5.0 x 5.8 x 5.2 cm heterogeneous masslike structure in the right lobe of the liver near the liver dome. The finding heterogeneously enhances with contrast administration. There is a 1.3 cm central low-density region postcontrast. The finding is nonspecific. A biopsy is recommended. 2. Indeterminant 1.9 cm low-density lesion in the medial segment of the left lobe of the liver anteriorly. The finding does not enhance with contrast ministration. A liver mass MRI is recommended. 3. There is a 2.3 cm left adrenal nodule. CT findings suggest an adrenal adenoma. A follow-up CT study in 6 months recommended. 4. Stable hiatal hernia. 5. Cholelithiasis. the patient was taken to surgery today on 08/03/[address] Blake waller for a robotic laparoscopic repair of large paraesophageal hiatal hernia with fundoplasty and fundopexy. the hospitalist team was consulted for medical management on the date of service of 08/03/2025. pt is seen and examined. She used to be on mounjaro but stopped taking it as was experiencing rapid hair loss. She is calm and comfortable. [place] cath. no gas/no bm but states she will be ambulating up to the chair later today. 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) Integumentary/Breasts: Skin/Breast: Reports alopecia Neurologic: Reports as per HPI and Denies confusion Psychiatric: Psychiatric: Denies confusion Endocrine: Endocrine: Reports as per HPI Exam Const: General: cooperative, comfortable, no acute distress, alert, awake, well nourished and overweight; No confusion Nutritional Appearance: well nourished and overweight Orientation/consciousness: patient oriented x3 and No confusion HENMT: Head: normocephalic and atraumatic Eyes: Conjunctivae: conjunctivae normal EOM: EOMs intact bilaterally Resp: Effort & Inspection: normal respiratory effort Auscultation: clear to auscultation bilaterally Cardio: Rate: regular rate Rhythm: regular rhythm Heart sounds: no gallops, no murmurs and no rubs GI: Inspection: non-distended Other: 5 laparoscopic incisions noted to be well approximated without any drainage. Urinary Catheter: Urinary Catheter: patent and draining and urine clear Skin: Lesions: no lesions Rashes: no rashes Neuro: General: patient oriented x3, no focal motor deficits and No confusion Extrem: General: no clubbing, cyanosis or edema and edema Right lower extremity: lower leg (right BKA) Psych: Affect: normal affect Thought process: Normal thought process present Insight: Good insight present (Psych) Objective Data Vital Signs Vital Signs: Vital Signs - 24 hr 08/03/25 17:47 08/03/25 18:00 08/03/25 18:15 Temperature 99.0 F Pulse Rate 91 90 92 Respiratory Rate 22 H 22 H 18 Blood Pressure 129/80 141/78 H 143/83 H Pulse Oximetry 92 96 92 Oxygen Delivery Simple Face Mask Simple Face Mask Simple Face Mask Oxygen Flow Rate 10 10 10 08/03/25 18:25 08/03/25 18:30 08/03/25 18:35 Temperature Pulse Rate 87 Respiratory Rate 16 Blood Pressure 146/90 H Pulse Oximetry 97 97 96 Oxygen Delivery Simple Face Mask Simple Face Mask Room Air Oxygen Flow Rate 8 6 08/03/25 18:39 08/03/25 18:45 08/03/25 18:50 Temperature 97.6 F Pulse Rate 85 Respiratory Rate 14 Blood Pressure 147/84 H Pulse Oximetry 92 96 Oxygen Delivery Nasal Cannula Nasal Cannula Oxygen Flow Rate 3 3 08/03/25 19:00 08/03/25 19:11 08/03/25 19:29 Temperature 97.6 F Pulse Rate 81 88 83 Respiratory Rate 12 16 16 Blood Pressure 137/78 140/80 139/74 Pulse Oximetry 96 98 93 Oxygen Delivery Nasal Cannula Nasal Cannula Oxygen Flow Rate 3 3 08/03/25 19:42 08/03/25 20:00 08/03/25 20:23 Temperature 97.7 F 97.1 F L Pulse Rate 82 84 Respiratory Rate 16 16 Blood Pressure 144/80 H 141/90 H Pulse Oximetry 94 91 93 Oxygen Delivery Nasal Cannula Oxygen Flow Rate 3 08/03/25 21:00 08/03/25 21:00 08/03/25 21:30 Temperature 97.8 F Pulse Rate 70 Respiratory Rate 14 Blood Pressure 138/77 Pulse Oximetry 94 94 94 Oxygen Delivery Nasal Cannula Nasal Cannula Oxygen Flow Rate 2 2 08/03/25 23:40 08/04/25 05:50 08/04/25 07:50 Temperature 97.7 F 98.0 F Pulse Rate 80 84 Respiratory Rate 16 16 Blood Pressure 131/61 111/56 L Pulse Oximetry 94 92 92 Oxygen Delivery Nasal Cannula Oxygen Flow Rate 2 08/04/25 10:35 Temperature 97.8 F Pulse Rate 83 Respiratory Rate 18 Blood Pressure 120/57 L Pulse Oximetry 95 Oxygen Delivery Oxygen Flow Rate Intake/Output Intake/Output: Intake & Output 08/01/25 08/02/25 08/03/25 08/04/25 23:59 23:59 23:59 23:59 Intake Total 1250 1775 Output Total 70 600 Balance 1180 1175 Meds/Results Medications: Active Medications Generic Name Dose Route Start Last Admin Trade Name Freq PRN Reason Stop Dose Admin Acetaminophen 650 mg 08/04/25 08:01 Acetaminophen Elixir 325 Mg/10.15 Ml Udc PO Q4H PRN Mild Pain (1-3) or Fever Albuterol 2 puff 08/03/25 19:14 Albuterol Sulfate (*Sp) Aerosol 1 Puff INHALATION Q6-8H PRN Shortness Of Breath Or Wheezing Alprazolam 0.5 mg 08/03/25 19:14 Alprazolam (*Crx) 0.5 Mg Tablet PO TID PRN Anxiety Azelastine HCl 1 spray 08/03/25 19:14 Azelastine Hcl Nasal 0.1% 137 Mcg/Spr 30 Ml Btl NASAL Q12H PRN ALLERGIES Dextrose 12.5 gm 08/03/25 19:14 Dextrose 50% 25 Gm/50 Ml Syringe IV PUSH PRN PRN Hypoglycemia Protocol Enoxaparin Sodium 40 mg 08/05/25 09:00 Enoxaparin 40 Mg/0.4 Ml Syringe SUB-Q DAILY AIDAN Gabapentin 1,200 mg 08/04/25 10:40 08/04/25 11:00 Gabapentin 400 Mg Capsule BY MOUTH 1,200 mg Q8HR AIDAN Administration Glucagon 1 mg 08/03/25 19:14 Glucagon For Inj 1 Mg Vial IM PRN PRN Hypoglycemia Protocol Glucose 15 gm 08/03/25 19:14 Glucose Oral Gel 15 Gm Of Glucse In 37.5 Gm Tube PO PRN PRN Hypoglycemia Protocol Hydromorphone HCl 1 mg 08/03/25 19:14 08/03/25 23:37 Hydromorphone Hcl Inj (*Crx) 1 Mg/Ml Syr IV PUSH 1 mg Q2H PRN Administration Breakthrough Pain Rated 4-6 or NPO Hydromorphone HCl 2 mg 08/03/25 19:24 08/04/25 07:55 Hydromorphone Hcl Inj (*Crx) 2 Mg/Ml Vial IV PUSH 2 mg Q2H PRN Administration Breakthrough Pain Rated 7-10 or NPO Lactated Ringer's 1,000 mls @ 100 mls/hr 08/03/25 19:14 08/04/25 05:40 Lr - Lactated Ringers Iv IV CONT 100 mls/hr .Q10H AIDAN Administration Dextrose 1,000 mls @ 100 mls/hr 08/03/25 21:04 Dextrose 5% 1,000 Ml IVPB PRN PRN Hypoglycemia Protocol Magnesium Oxide 200 mg 08/04/25 09:00 08/04/25 09:46 Magnesium Oxide 200 Mg Tablet PO 200 mg DAILY AIDAN Administration Miscellaneous Information 0 each 08/04/25 00:01 Order Clarification-Dr Waller To Call Back When To Start Lovenox 40 XX 09/03/25 00:00 CLARIFY AIDAN Naloxone HCl 0.1 mg 08/03/25 19:14 Naloxone Hcl 0.4 Mg/Ml Vial IV PUSH Q2M PRN Opiate Reversal Ondansetron HCl 4 mg 08/03/25 19:14 08/03/25 20:16 Ondansetron Inj 4 Mg/2 Ml Vial IV PUSH 4 mg Q4H PRN Administration Nausea And Vomiting Oxycodone HCl 15 mg 08/04/25 07:57 08/04/25 13:40 Oxycodone (*Crx) 5 Mg/5 Ml Oral Soln Ir PO 15 mg Q4H PRN Administration Pain Rated 7-10 Oxycodone HCl 10 mg 08/04/25 07:57 08/04/25 09:48 Oxycodone (*Crx) 5 Mg/5 Ml Oral Soln Ir PO 10 mg Q4H PRN Administration Pain Rated 4-6 Rosuvastatin Calcium 5 mg 08/03/25 19:20 08/03/25 20:01 Rosuvastatin 5 Mg Tablet BY MOUTH 5 mg QPM AIDAN Administration Labs Labs: Laboratory Results - last 24 hr 08/03/25 08/03/25 08/03/25 10:24 17:53 20:12 WBC RBC Hgb Hct MCV MCH MCHC RDW Plt Count MPV Sodium Potassium Chloride Carbon Dioxide Anion Gap BUN Creatinine Estim Creat Clear Calc Estimated GFR Glucose POC Capillary Glucose 233 H 224 H Hemoglobin A1c 7.5 H Calcium 08/04/25 08/04/25 08/04/25 04:46 08:17 11:56 WBC 7.7 RBC 3.76 L Hgb 10.7 L Hct 34.3 L MCV 91.2 MCH 28.5 MCHC 31.2 L RDW 16.8 H Plt Count 163 MPV 11.9 H Sodium 138 Potassium 4.5 Chloride 107 Carbon Dioxide 23 Anion Gap 8 BUN 18 H Creatinine 1.05 H Estim Creat Clear Calc 70 Estimated GFR 53 L Glucose 132 H POC Capillary Glucose 124 H 210 H Hemoglobin A1c Calcium 8.4 Quality VTE Prophylaxis VTE prophylaxis: mechanical ordered and pharmacologic ordered
--- NOTE | 2025-08-04 13:49 | WPDANESPN ---
Anes - Prog Note Post-Op Date/Time: 08/04/25 13:49 Cardiovascular status: normal Respiratory status: normal Airway patency: baseline Mental status: baseline Post-Op hydration status: normal Vital Signs: Last Vital Signs Temp 36.6 C 08/04/25 10:35 Pulse 83 08/04/25 10:35 Resp 18 08/04/25 10:35 BP 120/57 L 08/04/25 10:35 Pulse Ox 95 08/04/25 10:35 O2 Del Method Nasal Cannula 08/04/25 07:50 O2 Flow Rate 2 08/04/25 07:50 Pain Score (VAS): 2 I/O: Intake & Output 08/03/25 08/04/25 08/04/25 23:59 07:59 15:59 Intake Total 1200 1115 660 Output Total 70 600 Balance 1130 515 660 Laboratory Tests 08/04/25 04:46 08/04/25 04:46 08/03/25 08/03/25 08/03/25 10:24 17:53 20:12 WBC RBC Hgb Hct MCV MCH MCHC RDW Plt Count MPV Sodium Potassium Chloride Carbon Dioxide Anion Gap BUN Creatinine Estim Creat Clear Calc Estimated GFR Glucose POC Capillary Glucose 233 H 224 H Hemoglobin A1c 7.5 H Calcium 08/04/25 08/04/25 08/04/25 04:46 08:17 11:56 WBC 7.7 RBC 3.76 L Hgb 10.7 L Hct 34.3 L MCV 91.2 MCH 28.5 MCHC 31.2 L RDW 16.8 H Plt Count 163 MPV 11.9 H Sodium 138 Potassium 4.5 Chloride 107 Carbon Dioxide 23 Anion Gap 8 BUN 18 H Creatinine 1.05 H Estim Creat Clear Calc 70 Estimated GFR 53 L Glucose 132 H POC Capillary Glucose 124 H 210 H Hemoglobin A1c Calcium 8.4 Post-procedural complaints: none Patient Feedback: Patient satisfied with anesthetic care.
[2025-08-04] MEDS: ROSUVASTATIN 5 MG TABLET BY MOUTH (17:52)
[2025-08-05] VITALS (8 sets, daily range): BP systolic 111–123; BP diastolic 58–63; PULSE 76–99; RESP 16–20; TEMP 36.1–37.1; O2SAT 73–95
[2025-08-05] MEDS: LACTATED RINGERS 1,000 ML 100 ML IV CONT ×2 (00:48→14:50)
[2025-08-05] MEDS: oxyCODONE (*CRX) 5 MG/5 ML ORAL SOLN IR 15 MG PO ×3 (00:49→14:55)
[2025-08-05] MEDS: HYDROmorphone HCL INJ (*CRX) 1 MG/ML SYR IV PUSH (04:47)
[2025-08-05 05:03] LABS: Hematocrit 35.7 % (37.0-47.0); Hemoglobin 11.0 g/dL (12.0-15.0); Mean Corpuscular HGB Conc 30.8 g/dl (32-36); Mean Corpuscular Hemoglobin 28.3 pg (26-34); Mean Corpuscular Volume 91.8 fl (80-100); Platelet Count Result 151 k/mm3 (150-375); Red Blood Count 3.89 M/mm3 (4.2-5.4); White Blood Count 7.4 K/mm3 (4.5-10.0)
[2025-08-05 05:19] LABS: Anion Gap 5 mmol/L (4-12); Blood Urea Nitrogen 15 mg/dL (7-17); Calcium 8.5 mg/dL (8.4-10.2); Carbon Dioxide 29 mmol/L (22-30); Chloride 103 mmol/L (98-107); Estimated CRCL calculation 68 ml/min; Estimated Glomerular Filt Rate 51; Glucose 183 mg/dL (65-110); Potassium 4.2 mmol/L (3.4-5.0); Sodium 137 mmol/L (137-145)
[2025-08-05] MEDS: GABAPENTIN 400 MG CAPSULE 1200 MG BY MOUTH ×3 (05:29→21:07)
--- NOTE | 2025-08-05 08:25 | PM.PNGS ---
Progress Note: A&P Assessment and Plan (1) Paraesophageal hiatal hernia: Code(s): K44.9 - Diaphragmatic hernia without obstruction or gangrene Status: Chronic Assessment and Plan: s/p repair, doing well, cont routine postop care, leona clears, will advance to full liquids, cont to encourage OOB/IS Subjective Subjective Date/Time Seen: 08/05/25 08:25 Interval history: feels pretty good, some incisional soreness, leona clears Review of Systems Review of Systems: All systems reviewed & are unremarkable except as noted in HPI and below Exam Const: General: cooperative, comfortable, no acute distress, ill appearing and overweight Resp: Auscultation: clear to auscultation bilaterally Cardio: Rate: regular rate Rhythm: regular rhythm GI: Inspection: normal to inspection, distended and incision GI Palp: Yes abdominal tenderness and Yes Soft to palpation Objective Data Vital Signs Vital Signs: Vital Signs - 24 hr 08/04/25 10:35 08/04/25 14:51 08/04/25 15:00 Temperature 36.6 C 36.3 C L Pulse Rate 83 74 Respiratory Rate 18 18 Blood Pressure 120/57 L 116/60 Pulse Oximetry 95 96 Oxygen Delivery Room Air 08/04/25 18:39 08/04/25 20:00 08/04/25 20:59 Temperature 36.6 C 36.8 C Pulse Rate 77 84 84 Respiratory Rate 18 20 20 Blood Pressure 117/56 L 116/48 L Pulse Oximetry 93 90 90 Oxygen Delivery Room Air 08/05/25 04:55 Temperature 37.1 C Pulse Rate 99 Respiratory Rate 20 Blood Pressure 119/58 L Pulse Oximetry 90 Oxygen Delivery Intake/Output Intake/Output: Intake & Output 08/02/25 08/03/25 08/04/25 08/05/25 23:59 23:59 23:59 23:59 Intake Total 1250 4170 1238.3 Output Total 70 1425 375 Balance 1180 2745 863.3 Meds/Results Medications: Active Medications Generic Name Dose Route Start Last Admin Trade Name Freq PRN Reason Stop Dose Admin Acetaminophen 650 mg 08/04/25 08:01 Acetaminophen Elixir 325 Mg/10.15 Ml Udc PO Q4H PRN Mild Pain (1-3) or Fever Albuterol 2 puff 08/03/25 19:14 Albuterol Sulfate (*Sp) Aerosol 1 Puff INHALATION Q6-8H PRN Shortness Of Breath Or Wheezing Alprazolam 0.5 mg 08/03/25 19:14 Alprazolam (*Crx) 0.5 Mg Tablet PO TID PRN Anxiety Azelastine HCl 1 spray 08/03/25 19:14 Azelastine Hcl Nasal 0.1% 137 Mcg/Spr 30 Ml Btl NASAL Q12H PRN ALLERGIES Dextrose 12.5 gm 08/03/25 19:14 Dextrose 50% 25 Gm/50 Ml Syringe IV PUSH PRN PRN Hypoglycemia Protocol Enoxaparin Sodium 40 mg 08/05/25 09:00 Enoxaparin 40 Mg/0.4 Ml Syringe SUB-Q DAILY AIDAN Gabapentin 1,200 mg 08/04/25 10:40 08/05/25 05:29 Gabapentin 400 Mg Capsule BY MOUTH 1,200 mg Q8HR AIDAN Administration Glucagon 1 mg 08/03/25 19:14 Glucagon For Inj 1 Mg Vial IM PRN PRN Hypoglycemia Protocol Glucose 15 gm 08/03/25 19:14 Glucose Oral Gel 15 Gm Of Glucse In 37.5 Gm Tube PO PRN PRN Hypoglycemia Protocol Hydromorphone HCl 1 mg 08/03/25 19:14 08/05/25 04:47 Hydromorphone Hcl Inj (*Crx) 1 Mg/Ml Syr IV PUSH 1 mg Q2H PRN Administration Breakthrough Pain Rated 4-6 or NPO Hydromorphone HCl 2 mg 08/03/25 19:24 08/04/25 20:33 Hydromorphone Hcl Inj (*Crx) 2 Mg/Ml Vial IV PUSH 2 mg Q2H PRN Administration Breakthrough Pain Rated 7-10 or NPO Lactated Ringer's 1,000 mls @ 100 mls/hr 08/03/25 19:14 08/05/25 00:48 Lr - Lactated Ringers Iv IV CONT 100 mls/hr .Q10H AIDAN Administration Dextrose 1,000 mls @ 100 mls/hr 08/03/25 21:04 Dextrose 5% 1,000 Ml IVPB PRN PRN Hypoglycemia Protocol Magnesium Oxide 200 mg 08/04/25 09:00 08/04/25 09:46 Magnesium Oxide 200 Mg Tablet PO 200 mg DAILY AIDAN Administration Naloxone HCl 0.1 mg 08/03/25 19:14 Naloxone Hcl 0.4 Mg/Ml Vial IV PUSH Q2M PRN Opiate Reversal Ondansetron HCl 4 mg 08/03/25 19:14 08/03/25 20:16 Ondansetron Inj 4 Mg/2 Ml Vial IV PUSH 4 mg Q4H PRN Administration Nausea And Vomiting Oxycodone HCl 15 mg 08/04/25 07:57 08/05/25 00:49 Oxycodone (*Crx) 5 Mg/5 Ml Oral Soln Ir PO 15 mg Q4H PRN Administration Pain Rated 7-10 Oxycodone HCl 10 mg 08/04/25 07:57 08/04/25 09:48 Oxycodone (*Crx) 5 Mg/5 Ml Oral Soln Ir PO 10 mg Q4H PRN Administration Pain Rated 4-6 Rosuvastatin Calcium 5 mg 08/03/25 19:20 08/04/25 17:52 Rosuvastatin 5 Mg Tablet BY MOUTH 5 mg QPM AIDAN Administration Labs Labs: Laboratory Results - last 24 hr 08/04/25 08/04/25 08/04/25 11:56 17:02 21:30 WBC RBC Hgb Hct MCV MCH MCHC RDW Plt Count MPV Sodium Potassium Chloride Carbon Dioxide Anion Gap BUN Creatinine Estim Creat Clear Calc Estimated GFR Glucose POC Capillary Glucose 210 H 199 H 187 H Calcium 08/05/25 04:53 WBC 7.4 RBC 3.89 L Hgb 11.0 L Hct 35.7 L MCV 91.8 MCH 28.3 MCHC 30.8 L RDW 16.9 H Plt Count 151 MPV 11.0 H Sodium 137 Potassium 4.2 Chloride 103 Carbon Dioxide 29 Anion Gap 5 BUN 15 Creatinine 1.09 H Estim Creat Clear Calc 68 Estimated GFR 51 L Glucose 183 H POC Capillary Glucose Calcium 8.5
[2025-08-05] MEDS: MAGNESIUM OXIDE 200 MG TABLET PO (09:00)
[2025-08-05] MEDS: ENOXAPARIN 40 MG/0.4 ML SYRINGE SUB-Q (09:00)
[2025-08-05] MEDS: HYDROmorphone HCL INJ (*CRX) 2 MG/ML VIAL IV PUSH ×2 (10:46→18:00)
--- NOTE | 2025-08-05 11:12 | ECG_ITS ---
Test Date: 2025-08-05 11:35:29 Measurements Intervals [place] Rate: 81 P: 6 TN: 176 QRS: 24 QRSD: 74 T: -10 QT: 328 QTc: 383 Interpretive Statements SINUS RHYTHM LOW QRS VOLTAGE [QRS DEFLECTION < 0.5/1.0 mV IN LIMB/CHEST LEADS] POSSIBLE ANTERIOR MYOCARDIAL INFARCTION , PROBABLY OLD [30 ms Q WAVE IN V3/V4, OR R < 0.2 mV IN V4] ABNORMAL ECG Compared to ECG 07/13/2025 21:48:08 Myocardial infarct finding now present Electronically Signed On 08-05-2025 12:34:46 CDT by Bony Parra M.D.
[2025-08-05 12:01] LABS: Troponin I < 0.012 ng/mL (0.000-0.034)
--- NOTE | 2025-08-05 14:17 | PM.IMPN ---
Progress Note: A&P Assessment and Plan (1) S/P laparoscopic fundoplication: Code(s): Z98.890 - Other specified postprocedural states Status: Acute Assessment and Plan: Date of Procedure 08/03/25 Pre-op Diagnosis paraesophageal hiatal hernia, GERD, dysphagia Post-op Diagnosis Same Procedure Performed Robotic laparoscopic repair large paraesophageal hiatal hernia with fundoplasty and fundopexy Surgeon Blake Waller MD -postop care per Dr. Waller - the patient is complaining of having excessive gas at this time. The surgeon was notified per nursing staff about excessive gas. No new orders received. Encouraged the patient to move in bed as much as possible. - DVT prophylaxis is per Dr. Waller. -pain management per surgical team. 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 - Check A1c if not performed in the last 3- months (A1c 7.5 ) - Accu-Cheks AC and HS with sliding scale insulin. hga1c 7.5 bs reviewed and stable no changes to regimen today (3) Paraesophageal hiatal hernia: Code(s): K44.9 - Diaphragmatic hernia without obstruction or gangrene Status: Chronic Assessment and Plan: - Postop care per Dr. Waller - pain management per Dr. Waller (4) Phantom pain after amputation of lower extremity: Code(s): G54.6 - Phantom limb syndrome with pain Status: Chronic Assessment and Plan: - continue with patient's gabapentin Plan thank you for allowing us to consult on this patient will continue to comanage this patient along side with your treatment plan. Feel free to call the hospitalist group at any time for any questions or concerns. Time Spent With Patient Time with patient: 25 - 35 minutes Subjective Date/time seen: 08/05/25 14:17 Interval history: Marge Alarcon is a 64 year old female With severe heartburn, dysphagia and regurgitation. The patient has still with a hiatal hernia since the age of 20[address] scan on 07/07/2025 showed the following1. There is a 5.0 x 5.8 x 5.2 cm heterogeneous masslike structure in the right lobe of the liver near the liver dome. The finding heterogeneously enhances with contrast administration. There is a 1.3 cm central low-density region postcontrast. The finding is nonspecific. A biopsy is recommended. 2. Indeterminant 1.9 cm low-density lesion in the medial segment of the left lobe of the liver anteriorly. The finding does not enhance with contrast ministration. A liver mass MRI is recommended. 3. There is a 2.3 cm left adrenal nodule. CT findings suggest an adrenal adenoma. A follow-up CT study in 6 months recommended. 4. Stable hiatal hernia. 5. Cholelithiasis. the patient was taken to surgery today on 08/03/[address] Blake waller for a robotic laparoscopic repair of large paraesophageal hiatal hernia with fundoplasty and fundopexy. the hospitalist team was consulted for medical management on the date of service of 08/03/2025. pt is seen and examined. She used to be on mounjaro but stopped taking it as was experiencing rapid hair loss. She is calm and comfortable. [place] cath. no gas/no bm but states she will be ambulating up to the chair later today. 08/05 diet is advanced per surgery. bs reviewed and stable. pain is well controlled. 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) Integumentary/Breasts: Skin/Breast: Reports alopecia Neurologic: Reports as per HPI and Denies confusion Psychiatric: Psychiatric: Denies confusion Endocrine: Endocrine: Reports as per HPI Exam Const: General: cooperative, comfortable, no acute distress, alert, awake, well nourished and overweight; No confusion Nutritional Appearance: well nourished and overweight Orientation/consciousness: patient oriented x3 and No confusion HENMT: Head: normocephalic and atraumatic Eyes: Conjunctivae: conjunctivae normal EOM: EOMs intact bilaterally Resp: Effort & Inspection: normal respiratory effort Auscultation: clear to auscultation bilaterally Cardio: Rate: regular rate Rhythm: regular rhythm Heart sounds: no gallops, no murmurs and no rubs GI: Inspection: non-distended Other: 5 laparoscopic incisions noted to be well approximated without any drainage. Urinary Catheter: Urinary Catheter: patent and draining and urine clear Skin: Lesions: no lesions Rashes: no rashes Neuro: General: patient oriented x3, no focal motor deficits and No confusion Extrem: General: no clubbing, cyanosis or edema and edema Right lower extremity: lower leg (right BKA) Psych: Affect: normal affect Thought process: Normal thought process present Insight: Good insight present (Psych) Objective Data Vital Signs Vital Signs: Vital Signs - 24 hr 08/04/25 14:51 08/04/25 15:00 08/04/25 18:39 Temperature 97.4 F L 97.9 F Pulse Rate 74 77 Respiratory Rate 18 18 Blood Pressure 116/60 117/56 L Pulse Oximetry 96 93 Oxygen Delivery Room Air Oxygen Flow Rate 08/04/25 20:00 08/04/25 20:59 08/05/25 04:55 Temperature 98.3 F 98.7 F Pulse Rate 84 84 99 Respiratory Rate 20 20 20 Blood Pressure 116/48 L 119/58 L Pulse Oximetry 90 90 90 Oxygen Delivery Room Air Oxygen Flow Rate 08/05/25 08:33 08/05/25 12:00 Temperature 97.0 F L Pulse Rate 90 Respiratory Rate 16 Blood Pressure 111/63 Pulse Oximetry 92 91 Oxygen Delivery Nasal Cannula Oxygen Flow Rate 3 Intake/Output Intake/Output: Intake & Output 08/02/25 08/03/25 08/04/25 08/05/25 23:59 23:59 23:59 23:59 Intake Total 1250 4170 3314.3 Output Total 70 1425 375 Balance 1180 2745 2939.3 Meds/Results Medications: Active Medications Generic Name Dose Route Start Last Admin Trade Name Freq PRN Reason Stop Dose Admin Acetaminophen 650 mg 08/04/25 08:01 Acetaminophen Elixir 325 Mg/10.15 Ml Udc PO Q4H PRN Mild Pain (1-3) or Fever Albuterol 2 puff 08/03/25 19:14 Albuterol Sulfate (*Sp) Aerosol 1 Puff INHALATION Q6-8H PRN Shortness Of Breath Or Wheezing Alprazolam 0.5 mg 08/03/25 19:14 Alprazolam (*Crx) 0.5 Mg Tablet PO TID PRN Anxiety Azelastine HCl 1 spray 08/03/25 19:14 Azelastine Hcl Nasal 0.1% 137 Mcg/Spr 30 Ml Btl NASAL Q12H PRN ALLERGIES Dextrose 12.5 gm 08/03/25 19:14 Dextrose 50% 25 Gm/50 Ml Syringe IV PUSH PRN PRN Hypoglycemia Protocol Enoxaparin Sodium 40 mg 08/05/25 09:00 08/05/25 09:00 Enoxaparin 40 Mg/0.4 Ml Syringe SUB-Q 40 mg DAILY AIDAN Administration Gabapentin 1,200 mg 08/04/25 10:40 08/05/25 05:29 Gabapentin 400 Mg Capsule BY MOUTH 1,200 mg Q8HR AIDAN Administration Glucagon 1 mg 08/03/25 19:14 Glucagon For Inj 1 Mg Vial IM PRN PRN Hypoglycemia Protocol Glucose 15 gm 08/03/25 19:14 Glucose Oral Gel 15 Gm Of Glucse In 37.5 Gm Tube PO PRN PRN Hypoglycemia Protocol Hydromorphone HCl 1 mg 08/03/25 19:14 08/05/25 04:47 Hydromorphone Hcl Inj (*Crx) 1 Mg/Ml Syr IV PUSH 1 mg Q2H PRN Administration Breakthrough Pain Rated 4-6 or NPO Hydromorphone HCl 2 mg 08/03/25 19:24 08/05/25 10:46 Hydromorphone Hcl Inj (*Crx) 2 Mg/Ml Vial IV PUSH 2 mg Q2H PRN Administration Breakthrough Pain Rated 7-10 or NPO Lactated Ringer's 1,000 mls @ 100 mls/hr 08/03/25 19:14 08/05/25 00:48 Lr - Lactated Ringers Iv IV CONT 100 mls/hr .Q10H AIDAN Administration Dextrose 1,000 mls @ 100 mls/hr 08/03/25 21:04 Dextrose 5% 1,000 Ml IVPB PRN PRN Hypoglycemia Protocol Magnesium Oxide 200 mg 08/04/25 09:00 08/05/25 09:00 Magnesium Oxide 200 Mg Tablet PO 200 mg DAILY AIDAN Administration Naloxone HCl 0.1 mg 08/03/25 19:14 Naloxone Hcl 0.4 Mg/Ml Vial IV PUSH Q2M PRN Opiate Reversal Ondansetron HCl 4 mg 08/03/25 19:14 08/03/25 20:16 Ondansetron Inj 4 Mg/2 Ml Vial IV PUSH 4 mg Q4H PRN Administration Nausea And Vomiting Oxycodone HCl 15 mg 08/04/25 07:57 08/05/25 09:01 Oxycodone (*Crx) 5 Mg/5 Ml Oral Soln Ir PO 15 mg Q4H PRN Administration Pain Rated 7-10 Oxycodone HCl 10 mg 08/04/25 07:57 08/04/25 09:48 Oxycodone (*Crx) 5 Mg/5 Ml Oral Soln Ir PO 10 mg Q4H PRN Administration Pain Rated 4-6 Rosuvastatin Calcium 5 mg 08/03/25 19:20 08/04/25 17:52 Rosuvastatin 5 Mg Tablet BY MOUTH 5 mg QPM AIDAN Administration Labs Labs: Laboratory Results - last 24 hr 08/04/25 08/04/25 08/05/25 17:02 21:30 04:53 WBC 7.4 RBC 3.89 L Hgb 11.0 L Hct 35.7 L MCV 91.8 MCH 28.3 MCHC 30.8 L RDW 16.9 H Plt Count 151 MPV 11.0 H Sodium 137 Potassium 4.2 Chloride 103 Carbon Dioxide 29 Anion Gap 5 BUN 15 Creatinine 1.09 H Estim Creat Clear Calc 68 Estimated GFR 51 L Glucose 183 H POC Capillary Glucose 199 H 187 H Calcium 8.5 Troponin I 08/05/25 08/05/25 08/05/25 08:31 11:19 11:25 WBC RBC Hgb Hct MCV MCH MCHC RDW Plt Count MPV Sodium Potassium Chloride Carbon Dioxide Anion Gap BUN Creatinine Estim Creat Clear Calc Estimated GFR Glucose POC Capillary Glucose 188 H 189 H Calcium Troponin I < 0.012 Quality VTE Prophylaxis VTE prophylaxis: mechanical ordered and pharmacologic ordered
[2025-08-05 15:02] LABS: Troponin I < 0.012 ng/mL (0.000-0.034)
[2025-08-05] MEDS: FAMOTIDINE 20 MG TABLET PO ×2 (17:25→21:07)
[2025-08-05] MEDS: ROSUVASTATIN 5 MG TABLET BY MOUTH (17:26)
[2025-08-05 18:02] LABS: Troponin I < 0.012 ng/mL (0.000-0.034)
[2025-08-05] MEDS: CYCLOBENZAPRINE HCL 10 MG TABLET PO (18:47)
[2025-08-06] VITALS (9 sets, daily range): BP systolic 101–131; BP diastolic 47–69; PULSE 69–84; RESP 14–20; TEMP 36.1–37.2; O2SAT 84–99
[2025-08-06] MEDS: LACTATED RINGERS 1,000 ML 100 ML IV CONT (01:58)
[2025-08-06] MEDS: oxyCODONE (*CRX) 5 MG/5 ML ORAL SOLN IR 10 MG PO (05:00)
[2025-08-06] MEDS: GABAPENTIN 400 MG CAPSULE 1200 MG BY MOUTH ×3 (05:02→21:08)
[2025-08-06 05:18] LABS: Hematocrit 33.4 % (37.0-47.0); Hemoglobin 10.0 g/dL (12.0-15.0); Mean Corpuscular HGB Conc 29.9 g/dl (32-36); Mean Corpuscular Hemoglobin 27.9 pg (26-34); Mean Corpuscular Volume 93.3 fl (80-100); Platelet Count Result 144 k/mm3 (150-375); Red Blood Count 3.58 M/mm3 (4.2-5.4); White Blood Count 6.8 K/mm3 (4.5-10.0)
[2025-08-06 05:36] LABS: Anion Gap 3 mmol/L (4-12); Blood Urea Nitrogen 12 mg/dL (7-17); Calcium 8.5 mg/dL (8.4-10.2); Carbon Dioxide 28 mmol/L (22-30); Chloride 105 mmol/L (98-107); Estimated CRCL calculation 81 ml/min; Estimated Glomerular Filt Rate > 60; Glucose 169 mg/dL (65-110); Potassium 4.0 mmol/L (3.4-5.0); Sodium 136 mmol/L (137-145)
[2025-08-06] MEDS: CYCLOBENZAPRINE HCL 10 MG TABLET PO (09:38)
[2025-08-06] MEDS: MAGNESIUM OXIDE 200 MG TABLET PO (09:38)
[2025-08-06] MEDS: FAMOTIDINE 20 MG TABLET PO ×2 (09:38→21:08)
[2025-08-06] MEDS: ENOXAPARIN 40 MG/0.4 ML SYRINGE SUB-Q (09:39)
--- NOTE | 2025-08-06 10:27 | PM.IMPN ---
Progress Note: A&P Assessment and Plan (1) S/P laparoscopic fundoplication: Code(s): Z98.890 - Other specified postprocedural states Status: Acute Assessment and Plan: Date of Procedure 08/03/25 Pre-op Diagnosis paraesophageal hiatal hernia, GERD, dysphagia Post-op Diagnosis Same Procedure Performed Robotic laparoscopic repair large paraesophageal hiatal hernia with fundoplasty and fundopexy Surgeon Blake Waller MD -postop care per Dr. Waller - the patient is complaining of having excessive gas at this time. The surgeon was notified per nursing staff about excessive gas. No new orders received. Encouraged the patient to move in bed as much as possible. - DVT prophylaxis is per Dr. Waller. -pain management per surgical team. 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 - Check A1c if not performed in the last 3- months (A1c 7.5 ) - Accu-Cheks AC and HS with sliding scale insulin. hga1c 7.5 bs reviewed and stable no changes to regimen today (3) Paraesophageal hiatal hernia: Code(s): K44.9 - Diaphragmatic hernia without obstruction or gangrene Status: Chronic Assessment and Plan: - Postop care per Dr. Waller - pain management per Dr. 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 EKG was done, troponins done(normal). EKG was read as LOW QRS VOLTAGE [QRS DEFLECTION < 0.5/1.0 mV IN LIMB/CHEST LEADS] POSSIBLE ANTERIOR MYOCARDIAL INFARCTION , PROBABLY OLD [30 ms Q WAVE IN per DR Parra. Called and discussed wit DR Parra. PT's mother had extensive cardiac history as well as sister, so would be prudent to f/u with forensic identification specialist. Meanwhile, reduce cardiac risks: lose weight, statin, asa, increase physical activity, keep BS well controlled, no smoking, limit or stop alcohol. Pt is to f/u with cardiology as an oupt. - she was started on pepcid yesterday which will be continued for now. Plan thank you for allowing us to consult on this patient will continue to comanage this patient along side with your treatment plan. Feel free to call the hospitalist group at any time for any questions or concerns. Time Spent With Patient Time with patient: Greater than 35 minutes Subjective Date/time seen: 08/06/25 10:27 Interval history: Marge Alarcon is a 64 year old female With severe heartburn, dysphagia and regurgitation. The patient has still with a hiatal hernia since the age of 20[address] scan on 07/07/2025 showed the following1. There is a 5.0 x 5.8 x 5.2 cm heterogeneous masslike structure in the right lobe of the liver near the liver dome. The finding heterogeneously enhances with contrast administration. There is a 1.3 cm central low-density region postcontrast. The finding is nonspecific. A biopsy is recommended. 2. Indeterminant 1.9 cm low-density lesion in the medial segment of the left lobe of the liver anteriorly. The finding does not enhance with contrast ministration. A liver mass MRI is recommended. 3. There is a 2.3 cm left adrenal nodule. CT findings suggest an adrenal adenoma. A follow-up CT study in 6 months recommended. 4. Stable hiatal hernia. 5. Cholelithiasis. the patient was taken to surgery today on 08/03/[address] Blake waller for a robotic laparoscopic repair of large paraesophageal hiatal hernia with fundoplasty and fundopexy. the hospitalist team was consulted for medical management on the date of service of 08/03/2025. pt is seen and examined. She used to be on mounjaro but stopped taking it as was experiencing rapid hair loss. She is calm and comfortable. [place] cath. no gas/no bm but states she will be ambulating up to the chair later today. 08/05 diet is advanced per surgery. bs reviewed and stable. pain is well controlled. 08/06 brief episode of chest/upper epigastric pain yesterday. ekg, trop completed. Pt used to get those often in the past for which GI cocktail helped. She was started on pepcid. cardiology will f/u as an outpt. she is still requiring IV pain meds but it is less often now. 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) Integumentary/Breasts: Skin/Breast: Reports alopecia Neurologic: Reports as per HPI and Denies confusion Psychiatric: Psychiatric: Denies confusion Endocrine: Endocrine: Reports as per HPI Exam Const: General: cooperative, comfortable, no acute distress, alert, awake, well nourished and overweight; No confusion Nutritional Appearance: well nourished and overweight Orientation/consciousness: patient oriented x3 and No confusion HENMT: Head: normocephalic and atraumatic Eyes: Conjunctivae: conjunctivae normal EOM: EOMs intact bilaterally Resp: Effort & Inspection: normal respiratory effort Auscultation: clear to auscultation bilaterally Cardio: Rate: regular rate Rhythm: regular rhythm Heart sounds: no gallops, no murmurs and no rubs GI: Inspection: non-distended Other: 5 laparoscopic incisions noted to be well approximated without any drainage. Urinary Catheter: Urinary Catheter: patent and draining and urine clear Skin: Lesions: no lesions Rashes: no rashes Neuro: General: patient oriented x3, no focal motor deficits and No confusion Extrem: General: no clubbing, cyanosis or edema and edema Right lower extremity: lower leg (right BKA) Psych: Affect: normal affect Thought process: Normal thought process present Insight: Good insight present (Psych) Objective Data Vital Signs Vital Signs: Vital Signs - 24 hr 08/05/25 12:00 08/05/25 15:58 08/05/25 20:00 Temperature 97.0 F L 97.1 F L Pulse Rate 90 76 96 Respiratory Rate 16 16 16 Blood Pressure 111/63 113/58 L Pulse Oximetry 91 95 93 Oxygen Delivery Room Air Oxygen Flow Rate 08/05/25 20:26 08/05/25 20:29 08/05/25 21:00 Temperature 98.5 F Pulse Rate 96 Respiratory Rate 16 Blood Pressure 123/59 L Pulse Oximetry 73 L 93 95 Oxygen Delivery Nasal Cannula Oxygen Flow Rate 3 08/06/25 00:31 08/06/25 04:00 08/06/25 04:03 Temperature 98.3 F 98.9 F Pulse Rate 83 84 Respiratory Rate 14 14 Blood Pressure 131/62 122/47 L Pulse Oximetry 92 84 L 95 Oxygen Delivery Oxygen Flow Rate 08/06/25 08:00 Temperature 96.9 F L Pulse Rate 69 Respiratory Rate 20 Blood Pressure 127/67 Pulse Oximetry 99 Oxygen Delivery Oxygen Flow Rate Intake/Output Intake/Output: Intake & Output 08/03/25 08/04/25 08/05/25 08/06/25 23:59 23:59 23:59 23:59 Intake Total 1250 4170 4414.3 1700 Output Total 70 1425 725 250 Balance 1180 2745 3689.3 1450 Meds/Results Medications: Active Medications Generic Name Dose Route Start Last Admin Trade Name Freq PRN Reason Stop Dose Admin Acetaminophen 650 mg 08/04/25 08:01 Acetaminophen Elixir 325 Mg/10.15 Ml Udc PO Q4H PRN Mild Pain (1-3) or Fever Albuterol 2 puff 08/03/25 19:14 Albuterol Sulfate (*Sp) Aerosol 1 Puff INHALATION Q6-8H PRN Shortness Of Breath Or Wheezing Alprazolam 0.5 mg 08/03/25 19:14 Alprazolam (*Crx) 0.5 Mg Tablet PO TID PRN Anxiety Azelastine HCl 1 spray 08/03/25 19:14 Azelastine Hcl Nasal 0.1% 137 Mcg/Spr 30 Ml Btl NASAL Q12H PRN ALLERGIES Cyclobenzaprine HCl 10 mg 08/05/25 17:58 08/06/25 09:38 Cyclobenzaprine Hcl 10 Mg Tablet PO 10 mg Q8H PRN Administration Muscle Spasm Dextrose 12.5 gm 08/03/25 19:14 Dextrose 50% 25 Gm/50 Ml Syringe IV PUSH PRN PRN Hypoglycemia Protocol Enoxaparin Sodium 40 mg 08/05/25 09:00 08/06/25 09:39 Enoxaparin 40 Mg/0.4 Ml Syringe SUB-Q 40 mg DAILY AIDAN Administration Famotidine 20 mg 08/05/25 15:45 08/06/25 09:38 Famotidine 20 Mg Tablet PO 20 mg Q12HR AIDAN Administration Gabapentin 1,200 mg 08/04/25 10:40 08/06/25 05:02 Gabapentin 400 Mg Capsule BY MOUTH 1,200 mg Q8HR AIDAN Administration Glucagon 1 mg 08/03/25 19:14 Glucagon For Inj 1 Mg Vial IM PRN PRN Hypoglycemia Protocol Glucose 15 gm 08/03/25 19:14 Glucose Oral Gel 15 Gm Of Glucse In 37.5 Gm Tube PO PRN PRN Hypoglycemia Protocol Hydromorphone HCl 1 mg 08/03/25 19:14 08/05/25 04:47 Hydromorphone Hcl Inj (*Crx) 1 Mg/Ml Syr IV PUSH 1 mg Q2H PRN Administration Breakthrough Pain Rated 4-6 or NPO Hydromorphone HCl 2 mg 08/03/25 19:24 08/05/25 18:00 Hydromorphone Hcl Inj (*Crx) 2 Mg/Ml Vial IV PUSH 2 mg Q2H PRN Administration Breakthrough Pain Rated 7-10 or NPO Lactated Ringer's 1,000 mls @ 100 mls/hr 08/03/25 19:14 08/06/25 01:58 Lr - Lactated Ringers Iv IV CONT 100 mls/hr .Q10H AIDAN Administration Dextrose 1,000 mls @ 100 mls/hr 08/03/25 21:04 Dextrose 5% 1,000 Ml IVPB PRN PRN Hypoglycemia Protocol Magnesium Oxide 200 mg 08/04/25 09:00 08/06/25 09:38 Magnesium Oxide 200 Mg Tablet PO 200 mg DAILY AIDAN Administration Naloxone HCl 0.1 mg 08/03/25 19:14 Naloxone Hcl 0.4 Mg/Ml Vial IV PUSH Q2M PRN Opiate Reversal Ondansetron HCl 4 mg 08/03/25 19:14 08/03/25 20:16 Ondansetron Inj 4 Mg/2 Ml Vial IV PUSH 4 mg Q4H PRN Administration Nausea And Vomiting Oxycodone HCl 15 mg 08/04/25 07:57 08/05/25 14:55 Oxycodone (*Crx) 5 Mg/5 Ml Oral Soln Ir PO 15 mg Q4H PRN Administration Pain Rated 7-10 Oxycodone HCl 10 mg 08/04/25 07:57 08/06/25 05:00 Oxycodone (*Crx) 5 Mg/5 Ml Oral Soln Ir PO 10 mg Q4H PRN Administration Pain Rated 4-6 Rosuvastatin Calcium 5 mg 08/03/25 19:20 08/05/25 17:26 Rosuvastatin 5 Mg Tablet BY MOUTH 5 mg QPM AIDAN Administration Labs Labs: Laboratory Results - last 24 hr 08/05/25 08/05/25 08/05/25 11:19 11:25 14:30 WBC RBC Hgb Hct MCV MCH MCHC RDW Plt Count MPV Sodium Potassium Chloride Carbon Dioxide Anion Gap BUN Creatinine Estim Creat Clear Calc Estimated GFR Glucose POC Capillary Glucose 189 H Calcium Troponin I < 0.012 < 0.012 08/05/25 08/05/25 08/05/25 16:38 17:06 19:39 WBC RBC Hgb Hct MCV MCH MCHC RDW Plt Count MPV Sodium Potassium Chloride Carbon Dioxide Anion Gap BUN Creatinine Estim Creat Clear Calc Estimated GFR Glucose POC Capillary Glucose 231 H 208 H Calcium Troponin I < 0.012 08/06/25 08/06/25 08/06/25 00:14 04:48 09:00 WBC 6.8 RBC 3.58 L Hgb 10.0 L Hct 33.4 L MCV 93.3 MCH 27.9 MCHC 29.9 L RDW 16.4 H Plt Count 144 L MPV 11.5 H Sodium 136 L Potassium 4.0 Chloride 105 Carbon Dioxide 28 Anion Gap 3 L BUN 12 Creatinine 0.90 Estim Creat Clear Calc 81 Estimated GFR > 60 Glucose 169 H POC Capillary Glucose 234 H 161 H Calcium 8.5 Troponin I Quality VTE Prophylaxis VTE prophylaxis: mechanical ordered and pharmacologic ordered
[2025-08-06] MEDS: oxyCODONE (*CRX) 5 MG/5 ML ORAL SOLN IR 15 MG PO ×3 (10:34→21:11)
--- NOTE | 2025-08-06 11:51 | PM.PNGS ---
Progress Note: A&P Assessment and Plan (1) Hiatal hernia: Code(s): K44.9 - Diaphragmatic hernia without obstruction or gangrene Status: Acute Assessment and Plan: doing well, continue full liquid diet, encourage IS and out of bed Subjective Subjective Date/Time Seen: 08/06/25 11:51 Interval history: feels a little better today, still with some dysphagia, tolerating full liquid diet Review of Systems Review of Systems: All systems reviewed & are unremarkable except as noted in HPI and below Exam Const: General: cooperative, comfortable and no acute distress Resp: Auscultation: diminished lung sounds Cardio: Rate: regular rate Rhythm: regular rhythm GI: Inspection: normal to inspection, distended and incision GI Palp: Yes abdominal tenderness and Yes Soft to palpation Objective Data Vital Signs Vital Signs: Vital Signs - 24 hr 08/05/25 12:00 08/05/25 15:58 08/05/25 20:00 Temperature 36.1 C L 36.2 C L Pulse Rate 90 76 96 Respiratory Rate 16 16 16 Blood Pressure 111/63 113/58 L Pulse Oximetry 91 95 93 Oxygen Delivery Room Air Oxygen Flow Rate 08/05/25 20:26 08/05/25 20:29 08/05/25 21:00 Temperature 36.9 C Pulse Rate 96 Respiratory Rate 16 Blood Pressure 123/59 L Pulse Oximetry 73 L 93 95 Oxygen Delivery Nasal Cannula Oxygen Flow Rate 3 08/06/25 00:31 08/06/25 04:00 08/06/25 04:03 Temperature 36.8 C 37.2 C Pulse Rate 83 84 Respiratory Rate 14 14 Blood Pressure 131/62 122/47 L Pulse Oximetry 92 84 L 95 Oxygen Delivery Oxygen Flow Rate 08/06/25 08:00 Temperature 36.1 C L Pulse Rate 69 Respiratory Rate 20 Blood Pressure 127/67 Pulse Oximetry 99 Oxygen Delivery Oxygen Flow Rate Intake/Output Intake/Output: Intake & Output 08/03/25 08/04/25 08/05/25 08/06/25 23:59 23:59 23:59 23:59 Intake Total 1250 4170 4414.3 1700 Output Total 70 1425 725 250 Balance 1180 2745 3689.3 1450 Meds/Results Medications: Active Medications Generic Name Dose Route Start Last Admin Trade Name Freq PRN Reason Stop Dose Admin Acetaminophen 650 mg 08/04/25 08:01 Acetaminophen Elixir 325 Mg/10.15 Ml Udc PO Q4H PRN Mild Pain (1-3) or Fever Albuterol 2 puff 08/03/25 19:14 Albuterol Sulfate (*Sp) Aerosol 1 Puff INHALATION Q6-8H PRN Shortness Of Breath Or Wheezing Alprazolam 0.5 mg 08/03/25 19:14 Alprazolam (*Crx) 0.5 Mg Tablet PO TID PRN Anxiety Azelastine HCl 1 spray 08/03/25 19:14 Azelastine Hcl Nasal 0.1% 137 Mcg/Spr 30 Ml Btl NASAL Q12H PRN ALLERGIES Cyclobenzaprine HCl 10 mg 08/05/25 17:58 08/06/25 09:38 Cyclobenzaprine Hcl 10 Mg Tablet PO 10 mg Q8H PRN Administration Muscle Spasm Dextrose 12.5 gm 08/03/25 19:14 Dextrose 50% 25 Gm/50 Ml Syringe IV PUSH PRN PRN Hypoglycemia Protocol Enoxaparin Sodium 40 mg 08/05/25 09:00 08/06/25 09:39 Enoxaparin 40 Mg/0.4 Ml Syringe SUB-Q 40 mg DAILY AIDAN Administration Famotidine 20 mg 08/05/25 15:45 08/06/25 09:38 Famotidine 20 Mg Tablet PO 20 mg Q12HR AIDAN Administration Gabapentin 1,200 mg 08/04/25 10:40 08/06/25 05:02 Gabapentin 400 Mg Capsule BY MOUTH 1,200 mg Q8HR AIDAN Administration Glucagon 1 mg 08/03/25 19:14 Glucagon For Inj 1 Mg Vial IM PRN PRN Hypoglycemia Protocol Glucose 15 gm 08/03/25 19:14 Glucose Oral Gel 15 Gm Of Glucse In 37.5 Gm Tube PO PRN PRN Hypoglycemia Protocol Hydromorphone HCl 1 mg 08/03/25 19:14 08/05/25 04:47 Hydromorphone Hcl Inj (*Crx) 1 Mg/Ml Syr IV PUSH 1 mg Q2H PRN Administration Breakthrough Pain Rated 4-6 or NPO Hydromorphone HCl 2 mg 08/03/25 19:24 08/05/25 18:00 Hydromorphone Hcl Inj (*Crx) 2 Mg/Ml Vial IV PUSH 2 mg Q2H PRN Administration Breakthrough Pain Rated 7-10 or NPO Lactated Ringer's 1,000 mls @ 100 mls/hr 08/03/25 19:14 08/06/25 01:58 Lr - Lactated Ringers Iv IV CONT 100 mls/hr .Q10H AIDAN Administration Dextrose 1,000 mls @ 100 mls/hr 08/03/25 21:04 Dextrose 5% 1,000 Ml IVPB PRN PRN Hypoglycemia Protocol Magnesium Oxide 200 mg 08/04/25 09:00 08/06/25 09:38 Magnesium Oxide 200 Mg Tablet PO 200 mg DAILY AIDAN Administration Naloxone HCl 0.1 mg 08/03/25 19:14 Naloxone Hcl 0.4 Mg/Ml Vial IV PUSH Q2M PRN Opiate Reversal Ondansetron HCl 4 mg 08/03/25 19:14 08/03/25 20:16 Ondansetron Inj 4 Mg/2 Ml Vial IV PUSH 4 mg Q4H PRN Administration Nausea And Vomiting Oxycodone HCl 15 mg 08/04/25 07:57 08/06/25 10:34 Oxycodone (*Crx) 5 Mg/5 Ml Oral Soln Ir PO 15 mg Q4H PRN Administration Pain Rated 7-10 Oxycodone HCl 10 mg 08/04/25 07:57 08/06/25 05:00 Oxycodone (*Crx) 5 Mg/5 Ml Oral Soln Ir PO 10 mg Q4H PRN Administration Pain Rated 4-6 Rosuvastatin Calcium 5 mg 08/03/25 19:20 08/05/25 17:26 Rosuvastatin 5 Mg Tablet BY MOUTH 5 mg QPM AIDAN Administration Simethicone 125 mg 08/06/25 11:25 Simethicone 125 Mg Chew Tab PO QID PRN Indigestion Labs Labs: Laboratory Results - last 24 hr 08/05/25 08/05/25 08/05/25 11:25 14:30 16:38 WBC RBC Hgb Hct MCV MCH MCHC RDW Plt Count MPV Sodium Potassium Chloride Carbon Dioxide Anion Gap BUN Creatinine Estim Creat Clear Calc Estimated GFR Glucose POC Capillary Glucose 231 H Calcium Troponin I < 0.012 < 0.012 08/05/25 08/05/25 08/06/25 17:06 19:39 00:14 WBC RBC Hgb Hct MCV MCH MCHC RDW Plt Count MPV Sodium Potassium Chloride Carbon Dioxide Anion Gap BUN Creatinine Estim Creat Clear Calc Estimated GFR Glucose POC Capillary Glucose 208 H 234 H Calcium Troponin I < 0.012 08/06/25 08/06/25 04:48 09:00 WBC 6.8 RBC 3.58 L Hgb 10.0 L Hct 33.4 L MCV 93.3 MCH 27.9 MCHC 29.9 L RDW 16.4 H Plt Count 144 L MPV 11.5 H Sodium 136 L Potassium 4.0 Chloride 105 Carbon Dioxide 28 Anion Gap 3 L BUN 12 Creatinine 0.90 Estim Creat Clear Calc 81 Estimated GFR > 60 Glucose 169 H POC Capillary Glucose 161 H Calcium 8.5 Troponin I
[2025-08-06] MEDS: ROSUVASTATIN 5 MG TABLET BY MOUTH (18:06)
[2025-08-06] MEDS: HYDROmorphone HCL INJ (*CRX) 2 MG/ML VIAL IV PUSH (19:26)
[2025-08-06] MEDS: SIMETHICONE 125 MG CHEW TAB PO (21:07)
[2025-08-06] MEDS: SALINE LOCK FLUSH 10 ML IV PUSH (21:19)
[2025-08-07] MEDS: oxyCODONE (*CRX) 5 MG/5 ML ORAL SOLN IR 15 MG PO ×2 (02:55→08:23)
[2025-08-07 03:53] VITALS: BP 128/71; PULSE 78; RESP 18; TEMP 37; O2SAT 99
[2025-08-07] MEDS: HYDROmorphone HCL INJ (*CRX) 2 MG/ML VIAL IV PUSH (05:35)
[2025-08-07] MEDS: SALINE LOCK FLUSH 10 ML IV PUSH ×2 (05:36→13:16)
[2025-08-07] MEDS: GABAPENTIN 400 MG CAPSULE 1200 MG BY MOUTH ×3 (05:36→20:15)
[2025-08-07 05:59] LABS: Hematocrit 33.0 % (37.0-47.0); Hemoglobin 10.0 g/dL (12.0-15.0); Immature Platelet Fraction Pct 9.3 % (0.9-11.2); Mean Corpuscular HGB Conc 30.3 g/dl (32-36); Mean Corpuscular Hemoglobin 28.2 pg (26-34); Mean Corpuscular Volume 93.2 fl (80-100); Platelet Count Result 142 k/mm3 (150-375); Red Blood Count 3.54 M/mm3 (4.2-5.4); White Blood Count 6.1 K/mm3 (4.5-10.0)
[2025-08-07 06:22] LABS: Anion Gap 4 mmol/L (4-12); Blood Urea Nitrogen 13 mg/dL (7-17); Calcium 8.5 mg/dL (8.4-10.2); Carbon Dioxide 32 mmol/L (22-30); Chloride 102 mmol/L (98-107); Estimated CRCL calculation 85 ml/min; Estimated Glomerular Filt Rate > 60; Glucose 194 mg/dL (65-110); Potassium 3.8 mmol/L (3.4-5.0); Sodium 138 mmol/L (137-145)
[2025-08-07] MEDS: ENOXAPARIN 40 MG/0.4 ML SYRINGE SUB-Q (08:22)
[2025-08-07] MEDS: FAMOTIDINE 20 MG TABLET PO (08:22)
[2025-08-07] MEDS: MAGNESIUM OXIDE 200 MG TABLET PO (08:22)
[2025-08-07 09:42] VITALS: BP 117/63; PULSE 74; RESP 18; TEMP 36.7; O2SAT 99
--- NOTE | 2025-08-07 10:50 | PM.IMPN ---
Progress Note: A&P Assessment and Plan (1) S/P laparoscopic fundoplication: Code(s): Z98.890 - Other specified postprocedural states Status: Acute Assessment and Plan: Date of Procedure 08/03/25 Pre-op Diagnosis paraesophageal hiatal hernia, GERD, dysphagia Post-op Diagnosis Same Procedure Performed Robotic laparoscopic repair large paraesophageal hiatal hernia with fundoplasty and fundopexy Surgeon Blake Waller MD -postop care per Dr. Waller - the patient is complaining of having excessive gas at this time. The surgeon was notified per nursing staff about excessive gas. No new orders received. Encouraged the patient to move in bed as much as possible. - DVT prophylaxis is per Dr. Waller. -pain management per surgical team. (2) Diabetes: Qualifiers: Diabetes mellitus complication status: without complication Diabetes mellitus terminal makeup operator insulin use: with terminal makeup operator use Diabetes mellitus type: type 2 Qualified Code(s): E11.9 - Type 2 diabetes mellitus without complications; Z79.4 - computer terminal operator (current) use of insulin Code(s): E11.9 - Type 2 diabetes mellitus without complications Status: Chronic Assessment and Plan: - Her blood sugars have been 131-233 today. - Check A1c if not performed in the last 3- months (A1c 7.5 ) - Accu-Cheks AC and HS with sliding scale insulin. hga1c 7.5 bs reviewed and stable no changes to regimen today - added lantus at hs and ss with meals (3) Paraesophageal hiatal hernia: Code(s): K44.9 - Diaphragmatic hernia without obstruction or gangrene Status: Chronic Assessment and Plan: - Postop care per Dr. Waller - pain management per Dr. 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 EKG was done, troponins done(normal). EKG was read as LOW QRS VOLTAGE [QRS DEFLECTION < 0.5/1.0 mV IN LIMB/CHEST LEADS] POSSIBLE ANTERIOR MYOCARDIAL INFARCTION , PROBABLY OLD [30 ms Q WAVE IN per DR Parra. Called and discussed wit DR Parra. PT's mother had extensive cardiac history as well as sister, so would be prudent to f/u with truck despatcher. Meanwhile, reduce cardiac risks: lose weight, statin, asa, increase physical activity, keep BS well controlled, no smoking, limit or stop alcohol. Pt is to f/u with cardiology as an oupt. - she was started on pepcid yesterday which will be continued for now. -will continue pepcid Plan c/o cough now- will order chest xray to ensure no pneumonia. PT is at higher risk to develop pneumonia as obesed, recent surgery and modility is somewhat limited due to h/o amputation. Continue to encourage to ambulate during the day, up to the chair tid at least and continue to do IS. thank you for allowing us to consult on this patient will continue to comanage this patient along side with your treatment plan. Feel free to call the hospitalist group at any time for any questions or concerns. Time Spent With Patient Time with patient: 25 - 35 minutes Subjective Date/time seen: 08/07/25 10:50 Interval history: Marge Alarcon is a 64 year old female With severe heartburn, dysphagia and regurgitation. The patient has still with a hiatal hernia since the age of 20[address] scan on 07/07/2025 showed the following1. There is a 5.0 x 5.8 x 5.2 cm heterogeneous masslike structure in the right lobe of the liver near the liver dome. The finding heterogeneously enhances with contrast administration. There is a 1.3 cm central low-density region postcontrast. The finding is nonspecific. A biopsy is recommended. 2. Indeterminant 1.9 cm low-density lesion in the medial segment of the left lobe of the liver anteriorly. The finding does not enhance with contrast ministration. A liver mass MRI is recommended. 3. There is a 2.3 cm left adrenal nodule. CT findings suggest an adrenal adenoma. A follow-up CT study in 6 months recommended. 4. Stable hiatal hernia. 5. Cholelithiasis. the patient was taken to surgery today on 08/03/[address] Blake waller for a robotic laparoscopic repair of large paraesophageal hiatal hernia with fundoplasty and fundopexy. the hospitalist team was consulted for medical management on the date of service of 08/03/2025. pt is seen and examined. She used to be on mounjaro but stopped taking it as was experiencing rapid hair loss. She is calm and comfortable. [place] cath. no gas/no bm but states she will be ambulating up to the chair later today. 08/05 diet is advanced per surgery. bs reviewed and stable. pain is well controlled. 08/06 brief episode of chest/upper epigastric pain yesterday. ekg, trop completed. Pt used to get those often in the past for which GI cocktail helped. She was started on pepcid. cardiology will f/u as an outpt. she is still requiring IV pain meds but it is less often now. 08/07 pt is seen and examined. she is requesting benadryl for itchiness that she is experiencing at times. 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) Integumentary/Breasts: Skin/Breast: Reports alopecia Neurologic: Reports as per HPI and Denies confusion Psychiatric: Psychiatric: Denies confusion Endocrine: Endocrine: Reports as per HPI Exam Const: General: cooperative, comfortable, no acute distress, alert, awake, well nourished and overweight; No confusion Nutritional Appearance: well nourished and overweight Orientation/consciousness: patient oriented x3 and No confusion HENMT: Head: normocephalic and atraumatic Eyes: Conjunctivae: conjunctivae normal EOM: EOMs intact bilaterally Resp: Effort & Inspection: normal respiratory effort Auscultation: clear to auscultation bilaterally Cardio: Rate: regular rate Rhythm: regular rhythm Heart sounds: no gallops, no murmurs and no rubs GI: Inspection: non-distended Other: 5 laparoscopic incisions noted to be well approximated without any drainage. Urinary Catheter: Urinary Catheter: patent and draining and urine clear Skin: Lesions: no lesions Rashes: no rashes Neuro: General: patient oriented x3, no focal motor deficits and No confusion Extrem: General: no clubbing, cyanosis or edema and edema Right lower extremity: lower leg (right BKA) Psych: Affect: normal affect Thought process: Normal thought process present Insight: Good insight present (Psych) Objective Data Vital Signs Vital Signs: Vital Signs - 24 hr 08/06/25 12:00 08/06/25 16:00 08/06/25 20:00 Temperature 97.8 F 97.2 F L 98.2 F Pulse Rate 74 78 72 Respiratory Rate 18 18 17 Blood Pressure 124/50 L 126/67 101/51 L Pulse Oximetry 97 96 95 Oxygen Delivery 08/06/25 20:00 08/06/25 23:18 08/06/25 23:45 Temperature 97.5 F L Pulse Rate 77 Respiratory Rate 18 Blood Pressure 125/69 Pulse Oximetry 95 97 Oxygen Delivery Room Air Room Air 08/07/25 03:53 08/07/25 09:42 Temperature 98.6 F 98.1 F Pulse Rate 78 74 Respiratory Rate 18 18 Blood Pressure 128/71 117/63 Pulse Oximetry 99 99 Oxygen Delivery Intake/Output Intake/Output: Intake & Output 08/04/25 08/05/25 08/06/25 08/07/25 23:59 23:59 23:59 23:59 Intake Total 4170 4414.3 2400 630 Output Total 1425 725 350 300 Balance 2745 3689.3 2050 330 Meds/Results Medications: Active Medications Generic Name Dose Route Start Last Admin Trade Name Freq PRN Reason Stop Dose Admin Acetaminophen 650 mg 08/04/25 08:01 Acetaminophen Elixir 325 Mg/10.15 Ml Udc PO Q4H PRN Mild Pain (1-3) or Fever Albuterol 2 puff 08/03/25 19:14 Albuterol Sulfate (*Sp) Aerosol 1 Puff INHALATION Q6-8H PRN Shortness Of Breath Or Wheezing Alprazolam 0.5 mg 08/03/25 19:14 Alprazolam (*Crx) 0.5 Mg Tablet PO TID PRN Anxiety Azelastine HCl 1 spray 08/03/25 19:14 Azelastine Hcl Nasal 0.1% 137 Mcg/Spr 30 Ml Btl NASAL Q12H PRN ALLERGIES Cyclobenzaprine HCl 10 mg 08/05/25 17:58 08/06/25 09:38 Cyclobenzaprine Hcl 10 Mg Tablet PO 10 mg Q8H PRN Administration Muscle Spasm Dextrose 12.5 gm 08/03/25 19:14 Dextrose 50% 25 Gm/50 Ml Syringe IV PUSH PRN PRN Hypoglycemia Protocol Diphenhydramine HCl 50 mg 08/07/25 10:40 Diphenhydramine Hcl Cap 25 Mg Capsule PO Q6H PRN Itching Enoxaparin Sodium 40 mg 08/05/25 09:00 08/07/25 08:22 Enoxaparin 40 Mg/0.4 Ml Syringe SUB-Q 40 mg DAILY AIDAN Administration Famotidine 20 mg 08/05/25 15:45 08/07/25 08:22 Famotidine 20 Mg Tablet PO 20 mg Q12HR AIDAN Administration Gabapentin 1,200 mg 08/04/25 10:40 08/07/25 05:36 Gabapentin 400 Mg Capsule BY MOUTH 1,200 mg Q8HR AIDAN Administration Glucagon 1 mg 08/03/25 19:14 Glucagon For Inj 1 Mg Vial IM PRN PRN Hypoglycemia Protocol Glucose 15 gm 08/03/25 19:14 Glucose Oral Gel 15 Gm Of Glucse In 37.5 Gm Tube PO PRN PRN Hypoglycemia Protocol Hydromorphone HCl 1 mg 08/03/25 19:14 08/05/25 04:47 Hydromorphone Hcl Inj (*Crx) 1 Mg/Ml Syr IV PUSH 1 mg Q2H PRN Administration Breakthrough Pain Rated 4-6 or NPO Hydromorphone HCl 2 mg 08/03/25 19:24 08/07/25 05:35 Hydromorphone Hcl Inj (*Crx) 2 Mg/Ml Vial IV PUSH 2 mg Q2H PRN Administration Breakthrough Pain Rated 7-10 or NPO Dextrose 1,000 mls @ 100 mls/hr 08/03/25 21:04 Dextrose 5% 1,000 Ml IVPB PRN PRN Hypoglycemia Protocol Magnesium Oxide 200 mg 08/04/25 09:00 08/07/25 08:22 Magnesium Oxide 200 Mg Tablet PO 200 mg DAILY AIDAN Administration Naloxone HCl 0.1 mg 08/03/25 19:14 Naloxone Hcl 0.4 Mg/Ml Vial IV PUSH Q2M PRN Opiate Reversal Ondansetron HCl 4 mg 08/03/25 19:14 08/03/25 20:16 Ondansetron Inj 4 Mg/2 Ml Vial IV PUSH 4 mg Q4H PRN Administration Nausea And Vomiting Oxycodone HCl 15 mg 08/04/25 07:57 08/07/25 08:23 Oxycodone (*Crx) 5 Mg/5 Ml Oral Soln Ir PO 15 mg Q4H PRN Administration Pain Rated 7-10 Oxycodone HCl 10 mg 08/04/25 07:57 08/06/25 05:00 Oxycodone (*Crx) 5 Mg/5 Ml Oral Soln Ir PO 10 mg Q4H PRN Administration Pain Rated 4-6 Rosuvastatin Calcium 5 mg 08/03/25 19:20 08/06/25 18:06 Rosuvastatin 5 Mg Tablet BY MOUTH 5 mg QPM AIDAN Administration Simethicone 125 mg 08/06/25 11:25 08/06/25 21:07 Simethicone 125 Mg Chew Tab PO 125 mg QID PRN Administration Indigestion Sodium Chloride 10 ml 08/06/25 22:00 08/07/25 05:36 Saline Lock Flush IV PUSH 10 ml Q8HR AIDAN Administration Labs Labs: Laboratory Results - last 24 hr 08/06/25 08/06/25 08/06/25 11:42 16:48 21:10 WBC RBC Hgb Hct MCV MCH MCHC RDW Plt Count MPV % Immature Plt Fraction Sodium Potassium Chloride Carbon Dioxide Anion Gap BUN Creatinine Estim Creat Clear Calc Estimated GFR Glucose POC Capillary Glucose 171 H 205 H 186 H Calcium 08/07/25 08/07/25 05:38 08:04 WBC 6.1 RBC 3.54 L Hgb 10.0 L Hct 33.0 L MCV 93.2 MCH 28.2 MCHC 30.3 L RDW 15.7 H Plt Count 142 L MPV 11.3 H % Immature Plt Fraction 9.3 Sodium 138 Potassium 3.8 Chloride 102 Carbon Dioxide 32 H Anion Gap 4 BUN 13 Creatinine 0.86 Estim Creat Clear Calc 85 Estimated GFR > 60 Glucose 194 H POC Capillary Glucose 175 H Calcium 8.5 Quality VTE Prophylaxis VTE prophylaxis: mechanical ordered and pharmacologic ordered
[2025-08-07] MEDS: diphenhydrAMINE HCl CAP 25 MG CAPSULE 50 MG PO ×2 (11:12→17:35)
--- NOTE | 2025-08-07 11:36 | P.PNGS_ITS ---
Progress Note: A&P Assessment and Plan (1) Hiatal hernia: Code(s): K44.9 - Diaphragmatic hernia without obstruction or gangrene Status: Acute Assessment and Plan: * Continue full liquid diet. Notes some coughing with sputum output, but no regurgitation or vomiting. Voiding without difficulty. Ambulating to and from bedside commode. Patient still getting dilaudid 2 mg for pain. Encourage switch to oral pain medication if possible. Plan Discussed patient's case and plan of care with Dr. Hernandez. Subjective Subjective Date/Time Seen: 08/07/25 11:36 Patient reports: no new complaints Interval history: Patient states she is doing well today. Tolerating full liquid diet. She does note some itching all over her body that she states has been present since Thursday. Notes an episode of ?foamy? belching. She states she coughed up some blood over the weekend. No true vomiting or retching. Passing gas, but no BM yet. Exam GI: Inspection: non-distended GI Palp: Yes Soft to palpation Other: Incisions clean and dry with glue intact. No signs of infection, dehiscence, skin necrosis. Objective Data Vital Signs Vital Signs: Vital Signs - 24 hr 08/06/25 12:00 08/06/25 16:00 08/06/25 20:00 Temperature 97.8 F 97.2 F L 98.2 F Pulse Rate 74 78 72 Respiratory Rate 18 18 17 Blood Pressure 124/50 L 126/67 101/51 L Pulse Oximetry 97 96 95 Oxygen Delivery 08/06/25 20:00 08/06/25 23:18 08/06/25 23:45 Temperature 97.5 F L Pulse Rate 77 Respiratory Rate 18 Blood Pressure 125/69 Pulse Oximetry 95 97 Oxygen Delivery Room Air Room Air 08/07/25 03:53 08/07/25 08:20 08/07/25 09:42 Temperature 98.6 F 98.1 F Pulse Rate 78 74 Respiratory Rate 18 18 Blood Pressure 128/71 117/63 Pulse Oximetry 99 99 Oxygen Delivery Room Air Intake/Output Intake/Output: Intake & Output 08/04/25 08/05/25 08/06/25 08/07/25 23:59 23:59 23:59 23:59 Intake Total 4170 4414.3 2400 630 Output Total 1425 725 350 300 Balance 2745 3689.3 2050 330 Meds/Results Medications: Active Medications Generic Name Dose Route Start Last Admin Trade Name Freq PRN Reason Stop Dose Admin Acetaminophen 650 mg 08/04/25 08:01 Acetaminophen Elixir 325 Mg/10.15 Ml Udc PO Q4H PRN Mild Pain (1-3) or Fever Albuterol 2 puff 08/03/25 19:14 Albuterol Sulfate (*Sp) Aerosol 1 Puff INHALATION Q6-8H PRN Shortness Of Breath Or Wheezing Alprazolam 0.5 mg 08/03/25 19:14 Alprazolam (*Crx) 0.5 Mg Tablet PO TID PRN Anxiety Azelastine HCl 1 spray 08/03/25 19:14 Azelastine Hcl Nasal 0.1% 137 Mcg/Spr 30 Ml Btl NASAL Q12H PRN ALLERGIES Cyclobenzaprine HCl 10 mg 08/05/25 17:58 08/06/25 09:38 Cyclobenzaprine Hcl 10 Mg Tablet PO 10 mg Q8H PRN Administration Muscle Spasm Dextrose 12.5 gm 08/03/25 19:14 Dextrose 50% 25 Gm/50 Ml Syringe IV PUSH PRN PRN Hypoglycemia Protocol Diphenhydramine HCl 50 mg 08/07/25 10:40 08/07/25 11:12 Diphenhydramine Hcl Cap 25 Mg Capsule PO 50 mg Q6H PRN Administration Itching Enoxaparin Sodium 40 mg 08/05/25 09:00 08/07/25 08:22 Enoxaparin 40 Mg/0.4 Ml Syringe SUB-Q 40 mg DAILY AIDAN Administration Gabapentin 1,200 mg 08/04/25 10:40 08/07/25 05:36 Gabapentin 400 Mg Capsule BY MOUTH 1,200 mg Q8HR AIDAN Administration Glucagon 1 mg 08/03/25 19:14 Glucagon For Inj 1 Mg Vial IM PRN PRN Hypoglycemia Protocol Glucose 15 gm 08/03/25 19:14 Glucose Oral Gel 15 Gm Of Glucse In 37.5 Gm Tube PO PRN PRN Hypoglycemia Protocol Hydromorphone HCl 1 mg 08/03/25 19:14 08/05/25 04:47 Hydromorphone Hcl Inj (*Crx) 1 Mg/Ml Syr IV PUSH 1 mg Q2H PRN Administration Breakthrough Pain Rated 4-6 or NPO Hydromorphone HCl 2 mg 08/03/25 19:24 08/07/25 05:35 Hydromorphone Hcl Inj (*Crx) 2 Mg/Ml Vial IV PUSH 2 mg Q2H PRN Administration Breakthrough Pain Rated 7-10 or NPO Dextrose 1,000 mls @ 100 mls/hr 08/03/25 21:04 Dextrose 5% 1,000 Ml IVPB PRN PRN Hypoglycemia Protocol Magnesium Oxide 200 mg 08/04/25 09:00 08/07/25 08:22 Magnesium Oxide 200 Mg Tablet PO 200 mg DAILY AIDAN Administration Naloxone HCl 0.1 mg 08/03/25 19:14 Naloxone Hcl 0.4 Mg/Ml Vial IV PUSH Q2M PRN Opiate Reversal Ondansetron HCl 4 mg 08/03/25 19:14 08/03/25 20:16 Ondansetron Inj 4 Mg/2 Ml Vial IV PUSH 4 mg Q4H PRN Administration Nausea And Vomiting Oxycodone HCl 15 mg 08/04/25 07:57 08/07/25 08:23 Oxycodone (*Crx) 5 Mg/5 Ml Oral Soln Ir PO 15 mg Q4H PRN Administration Pain Rated 7-10 Oxycodone HCl 10 mg 08/04/25 07:57 08/06/25 05:00 Oxycodone (*Crx) 5 Mg/5 Ml Oral Soln Ir PO 10 mg Q4H PRN Administration Pain Rated 4-6 Potassium Chloride 40 meq 08/08/25 09:00 Potassium Chloride 20 Meq Packet (For Liquid) PO 08/10/25 09:05 DAILY [facility] Rosuvastatin Calcium 5 mg 08/03/25 19:20 08/06/25 18:06 Rosuvastatin 5 Mg Tablet BY MOUTH 5 mg QPM AIDAN Administration Simethicone 125 mg 08/06/25 11:25 08/06/25 21:07 Simethicone 125 Mg Chew Tab PO 125 mg QID PRN Administration Indigestion Sodium Chloride 10 ml 08/06/25 22:00 08/07/25 05:36 Saline Lock Flush IV PUSH 10 ml Q8HR AIDAN Administration Labs Labs: Laboratory Results - last 24 hr 08/06/25 08/06/25 08/06/25 11:42 16:48 21:10 WBC RBC Hgb Hct MCV MCH MCHC RDW Plt Count MPV % Immature Plt Fraction Sodium Potassium Chloride Carbon Dioxide Anion Gap BUN Creatinine Estim Creat Clear Calc Estimated GFR Glucose POC Capillary Glucose 171 H 205 H 186 H Calcium 08/07/25 08/07/25 05:38 08:04 WBC 6.1 RBC 3.54 L Hgb 10.0 L Hct 33.0 L MCV 93.2 MCH 28.2 MCHC 30.3 L RDW 15.7 H Plt Count 142 L MPV 11.3 H % Immature Plt Fraction 9.3 Sodium 138 Potassium 3.8 Chloride 102 Carbon Dioxide 32 H Anion Gap 4 BUN 13 Creatinine 0.86 Estim Creat Clear Calc 85 Estimated GFR > 60 Glucose 194 H POC Capillary Glucose 175 H Calcium 8.5
[2025-08-07] MEDS: POTASSIUM CHLORIDE 20 MEQ PACKET (FOR LIQUID) 40 MEQ PO (13:14)
[2025-08-07] MEDS: BUMETANIDE INJ 1 MG/4 ML VIAL 2 MG IV PUSH (13:15)
[2025-08-07] MEDS: HYDROcodone/acetaminophen (*CRX) 10-325 MG TABLET 1.5 TAB PO ×2 (13:16→19:00)
[2025-08-07 14:03] VITALS: BP 144/63; PULSE 70; RESP 18; TEMP 36.6
[2025-08-07] MEDS: ROSUVASTATIN 5 MG TABLET BY MOUTH (17:34)
[2025-08-07] MEDS: INSULIN ASPART (*BKC) 100 UNITS/ML SUB-Q (17:34)
[2025-08-07 18:02] LABS: NT Pro B Type Natriuretic Pept 926 pg/mL (19.9-100)
[2025-08-07 18:27] VITALS: BP 114/66; PULSE 77; RESP 18; TEMP 36.3; O2SAT 98
[2025-08-07 19:37] VITALS: PULSE 77; RESP 18; O2SAT 98
[2025-08-07 21:09] VITALS: BP 114/50; PULSE 76; RESP 18; TEMP 36.8; O2SAT 96
[2025-08-07] MEDS: INSULIN GLARGINE (*BKC) 100 UNITS/ML 7 UNITS SUB-Q (21:13)
[2025-08-08] MEDS: SALINE LOCK FLUSH 10 ML IV PUSH ×4 (00:58→21:19)
[2025-08-08 02:00] VITALS: BP 119/69; PULSE 80; RESP 16; TEMP 36.7; O2SAT 95
[2025-08-08 03:57] VITALS: BP 154/81; PULSE 82; RESP 17; TEMP 36.7; O2SAT 95
[2025-08-08 04:59] LABS: Hematocrit 32.6 % (37.0-47.0); Hemoglobin 10.0 g/dL (12.0-15.0); Mean Corpuscular HGB Conc 30.7 g/dl (32-36); Mean Corpuscular Hemoglobin 28.1 pg (26-34); Mean Corpuscular Volume 91.6 fl (80-100); Platelet Count Result 148 k/mm3 (150-375); Red Blood Count 3.56 M/mm3 (4.2-5.4); White Blood Count 5.1 K/mm3 (4.5-10.0)
[2025-08-08 05:15] LABS: Anion Gap 3 mmol/L (4-12); Blood Urea Nitrogen 12 mg/dL (7-17); Calcium 8.6 mg/dL (8.4-10.2); Carbon Dioxide 36 mmol/L (22-30); Chloride 99 mmol/L (98-107); Estimated CRCL calculation 77 ml/min; Estimated Glomerular Filt Rate 59; Glucose 175 mg/dL (65-110); Potassium 3.6 mmol/L (3.4-5.0); Sodium 138 mmol/L (137-145)
[2025-08-08] MEDS: HYDROcodone/acetaminophen (*CRX) 10-325 MG TABLET 1.5 TAB PO (08:02)
[2025-08-08] MEDS: POTASSIUM CHLORIDE 20 MEQ PACKET (FOR LIQUID) 40 MEQ PO ×2 (08:06→17:31)
[2025-08-08] MEDS: MAGNESIUM OXIDE 200 MG TABLET PO (08:06)
[2025-08-08] MEDS: GABAPENTIN 400 MG CAPSULE 1200 MG BY MOUTH ×3 (08:35→21:19)
[2025-08-08] MEDS: ENOXAPARIN 40 MG/0.4 ML SYRINGE SUB-Q (08:36)
[2025-08-08] MEDS: ACETAMINOPHEN ELIXIR 325 MG/10.15 ML UDC 650 MG PO (08:51)
[2025-08-08 09:25] VITALS: BP 132/63; PULSE 78; RESP 16; TEMP 36.6; O2SAT 94
[2025-08-08] MEDS: HYDROcodone/acetaminophen (*CRX) 10-325 MG TABLET 1 TAB PO (10:53)
[2025-08-08] MEDS: BUMETANIDE INJ 1 MG/4 ML VIAL 2 MG IV PUSH (10:54)
--- NOTE | 2025-08-08 10:58 | P.PNGS_ITS ---
Progress Note: A&P Assessment and Plan (1) Paraesophageal hiatal hernia: Code(s): K44.9 - Diaphragmatic hernia without obstruction or gangrene Status: Chronic Assessment and Plan: repaired, 08/03/2025. No evidence of recurrence. (2) S/P laparoscopic fundoplication: Code(s): Z98.890 - Other specified postprocedural states Status: Acute Assessment and Plan: Recovering as expected considering her comorbid conditions. Occasional episodes of regurgitation, especially with the concoction she was trying to swallow, are expected. She is able to tolerate thicker liquids and foods much better. Advised that she will still need to continue to take small bites and eat slowly, taking time between bites. Advised her not to take all these medications at once. Additionally, she will have to take her [place] pills at home as her pharmacy will not allow me to order additional narcotic medications. Her primary care provider prescribes the [place] chronically and may be able to prescribe additional narcotics if they are needed. She is still has excess flui d on board from her lengthy surgery and IV fluid administration postoperatively. Will give another dose of Bumex and potassium today. The radiology reports suggests pneumonia may be superimposed but this is only an x-ray reading, she has no other clinical evidence of pneumonia whatsoever. I reassured her that she does not have pneumonia. Additionally, she has had many L of additional fluid but is diuresing that with the Bumex and will continue to diurese naturally when she is discharged. 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 Blood sugar still running over 140 but she has been uncontrolled for quite some time and I am sure this is difficult. (5) Anemia: Code(s): D64.9 - Anemia, unspecified Status: Chronic Assessment and Plan: Anemic but hemoglobin and hematocrit stable last 3 days. 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 Subjective Subjective Date/Time Seen: 08/08/25 10:58 Patient reports: tolerating liquids well, flatus, bowel movement and afebrile Interval history: Patient frustrated and anxious this morning. She tried to drink her MiraLax, potassium elix, and [place] 1-1/2 tabs at the same time. This got stuck and it came back up. She is feeling better now but is concerned she did not get her pain medication. She did have a bowel movement yesterday. She noted having multiple times that she urinated consistent with the Bumex administration. She is breathing better and not requiring any oxygen. Overall, she feels better but is frustrated from the episode of regurgitation this morning. Exam Const: General: comfortable, alert, awake and anxious Orientation/consciousness: patient oriented x3 GI: Inspection: incision ( Healing well) and obesity GI Palp: Yes Tenderness to palpation present (GI) Objective Data Vital Signs Vital Signs: Vital Signs - 24 hr 08/07/25 14:03 08/07/25 18:27 08/07/25 19:37 Temperature 36.6 C 36.3 C L Pulse Rate 70 77 77 Respiratory Rate 18 18 18 Blood Pressure 144/63 H 114/66 Pulse Oximetry 98 98 Oxygen Delivery Room Air 08/07/25 21:09 08/08/25 03:57 08/08/25 09:25 Temperature 36.8 C 36.7 C 36.6 C Pulse Rate 76 82 78 Respiratory Rate 18 17 16 Blood Pressure 114/50 L 154/81 H 132/63 Pulse Oximetry 96 95 94 Oxygen Delivery 08/08/25 09:52 Temperature Pulse Rate Respiratory Rate Blood Pressure Pulse Oximetry Oxygen Delivery Room Air Intake/Output Intake/Output: Intake & Output 08/05/25 08/06/25 08/07/25 08/08/25 23:59 23:59 23:59 23:59 Intake Total 4414.3 2400 1800 238 Output Total 725 350 950 600 Balance 3689.3 2050 850 -362 Meds/Results Medications: Active Medications Generic Name Dose Route Start Last Admin Trade Name Freq PRN Reason Stop Dose Admin Acetaminophen 650 mg 08/04/25 08:01 08/08/25 08:51 Acetaminophen Elixir 325 Mg/10.15 Ml Udc PO 650 mg Q4H PRN Administration Mild Pain (1-3) or Fever Hydrocodone Bitart/Acetaminophen 1 tab 08/07/25 12:57 Hydrocodone/Acetaminophen (*Crx) 10-325 Mg Tablet PO Q6H PRN Pain Rated 4-6 Hydrocodone Bitart/Acetaminophen 2 tab 08/08/25 09:25 Hydrocodone/Acetaminophen (*Crx) 7.5-325 Mg Tablet PO Q6H PRN Pain Rated 7-10 Albuterol 2 puff 08/03/25 19:14 Albuterol Sulfate (*Sp) Aerosol 1 Puff INHALATION Q6-8H PRN Shortness Of Breath Or Wheezing Alprazolam 0.5 mg 08/03/25 19:14 Alprazolam (*Crx) 0.5 Mg Tablet PO TID PRN Anxiety Azelastine HCl 1 spray 08/03/25 19:14 Azelastine Hcl Nasal 0.1% 137 Mcg/Spr 30 Ml Btl NASAL Q12H PRN ALLERGIES Cyclobenzaprine HCl 10 mg 08/05/25 17:58 08/06/25 09:38 Cyclobenzaprine Hcl 10 Mg Tablet PO 10 mg Q8H PRN Administration Muscle Spasm Dextrose 12.5 gm 08/03/25 19:14 Dextrose 50% 25 Gm/50 Ml Syringe IV PUSH PRN PRN Hypoglycemia Protocol Diphenhydramine HCl 50 mg 08/07/25 10:40 08/07/25 17:35 Diphenhydramine Hcl Cap 25 Mg Capsule PO 50 mg Q6H PRN Administration Itching Enoxaparin Sodium 40 mg 08/05/25 09:00 08/08/25 08:36 Enoxaparin 40 Mg/0.4 Ml Syringe SUB-Q 40 mg DAILY AIDAN Administration Gabapentin 1,200 mg 08/04/25 10:40 08/08/25 08:35 Gabapentin 400 Mg Capsule BY MOUTH 1,200 mg Q8HR AIDAN Administration Glucagon 1 mg 08/03/25 19:14 Glucagon For Inj 1 Mg Vial IM PRN PRN Hypoglycemia Protocol Glucose 15 gm 08/03/25 19:14 Glucose Oral Gel 15 Gm Of Glucse In 37.5 Gm Tube PO PRN PRN Hypoglycemia Protocol Hydromorphone HCl 1 mg 08/03/25 19:14 08/05/25 04:47 Hydromorphone Hcl Inj (*Crx) 1 Mg/Ml Syr IV PUSH 1 mg Q2H PRN Administration Breakthrough Pain Rated 4-6 or NPO Hydromorphone HCl 2 mg 08/03/25 19:24 08/07/25 05:35 Hydromorphone Hcl Inj (*Crx) 2 Mg/Ml Vial IV PUSH 2 mg Q2H PRN Administration Breakthrough Pain Rated 7-10 or NPO Dextrose 1,000 mls @ 100 mls/hr 08/03/25 21:04 Dextrose 5% 1,000 Ml IVPB PRN PRN Hypoglycemia Protocol Insulin Aspart 2 - 5 units 08/07/25 17:00 08/08/25 08:37 Insulin Aspart (*Bkc) 100 Units/Ml SUB-Q Not Given TIDWM AIDAN Protocol Insulin Aspart 1 - 2 units 08/07/25 21:00 08/07/25 21:14 Insulin Aspart (*Bkc) 100 Units/Ml SUB-Q Not Given HS AIDAN Protocol Insulin Glargine 7 units 08/07/25 21:00 08/07/25 21:13 Insulin Glargine (*Bkc) 100 Units/Ml SUB-Q 7 units HS AIDAN Administration Magnesium Oxide 200 mg 08/04/25 09:00 08/08/25 08:06 Magnesium Oxide 200 Mg Tablet PO 200 mg DAILY AIDAN Administration Naloxone HCl 0.1 mg 08/03/25 19:14 Naloxone Hcl 0.4 Mg/Ml Vial IV PUSH Q2M PRN Opiate Reversal Ondansetron HCl 4 mg 08/03/25 19:14 08/03/25 20:16 Ondansetron Inj 4 Mg/2 Ml Vial IV PUSH 4 mg Q4H PRN Administration Nausea And Vomiting Perflutren Lipid Microsphere 0 ml 08/07/25 16:24 Perflutren Lipid Microspheres 1.5 Ml Vial Diluted To 10 Ml Total Volume IV PUSH 08/10/25 16:24 ONCE PRN adequate visualization Protocol Polyethylene Glycol 17 gm 08/08/25 09:00 08/08/25 08:07 Polyethylene Glycol 3350 17 Gm Powd.Pack PO 17 gm QAM AIDAN Administration Potassium Chloride 40 meq 08/08/25 17:00 Potassium Chloride 20 Meq Packet (For Liquid) PO 08/10/25 09:05 BID AIDAN Rosuvastatin Calcium 5 mg 08/03/25 19:20 08/07/25 17:34 Rosuvastatin 5 Mg Tablet BY MOUTH 5 mg QPM AIDAN Administration Sodium Chloride 10 ml 08/06/25 22:00 08/08/25 08:36 Saline Lock Flush IV PUSH 10 ml Q8HR AIDAN Administration Radiology Results: ITS Impressions Chest X-Ray 08/07/25 13:21 Impression: CHF. Superimposed probable pneumonia. The findings are new compared to the previous study. Labs Labs: Laboratory Results - last 24 hr 08/07/25 08/07/25 08/07/25 11:48 17:16 17:28 WBC RBC Hgb Hct MCV MCH MCHC RDW Plt Count MPV Sodium Potassium Chloride Carbon Dioxide Anion Gap BUN Creatinine Estim Creat Clear Calc Estimated GFR Glucose POC Capillary Glucose 245 H 243 H Calcium NT-Pro-B Natriuret Pep 926 H 08/07/25 08/08/25 08/08/25 20:53 04:48 07:45 WBC 5.1 RBC 3.56 L Hgb 10.0 L Hct 32.6 L MCV 91.6 MCH 28.1 MCHC 30.7 L RDW 15.6 H Plt Count 148 L MPV 11.5 H Sodium 138 Potassium 3.6 Chloride 99 Carbon Dioxide 36 H Anion Gap 3 L BUN 12 Creatinine 0.96 Estim Creat Clear Calc 77 Estimated GFR 59 Glucose 175 H POC Capillary Glucose 161 H 176 H Calcium 8.6 NT-Pro-B Natriuret Pep
--- NOTE | 2025-08-08 11:54 | PC.NURSE ---
On 08/08/25, the student, [Edel Aaron], provided care and completed [facility] documentation on this patient. I have reviewed the student's documentation and agree with the findings.
[2025-08-08] MEDS: INSULIN ASPART (*BKC) 100 UNITS/ML SUB-Q ×2 (12:23→17:31)
[2025-08-08] MEDS: CYCLOBENZAPRINE HCL 10 MG TABLET PO ×2 (12:26→21:19)
--- NOTE | 2025-08-08 13:49 | P.PNIM_ITS ---
Progress Note: A&P Assessment and Plan (1) S/P laparoscopic fundoplication: Code(s): Z98.890 - Other specified postprocedural states Status: Acute Assessment and Plan: Date of Procedure 08/03/25 Pre-op Diagnosis paraesophageal hiatal hernia, GERD, dysphagia Post-op Diagnosis Same Procedure Performed Robotic laparoscopic repair large paraesophageal hiatal hernia with fundoplasty and fundopexy Surgeon Blake Waller MD -postop care per Dr. Waller - the patient is complaining of having excessive gas at this time. The surgeon was notified per nursing staff about excessive gas. No new orders received. Encouraged the patient to move in bed as much as possible. - DVT prophylaxis is per Dr. Waller. -pain management per surgical team. 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 - Check A1c if not performed in the last 3- months (A1c 7.5 ) - Accu-Cheks AC and HS with sliding scale insulin. hga1c 7.5 bs reviewed and stable no changes to regimen today - added lantus at hs and ss with meals will increase lantus to 10 unit for better am BS control (3) Paraesophageal hiatal hernia: Code(s): K44.9 - Diaphragmatic hernia without obstruction or gangrene Status: Chronic Assessment and Plan: - Postop care per Dr. Waller - pain management per Dr. 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 EKG was done, troponins done(normal). EKG was read as LOW QRS VOLTAGE [QRS DEFLECTION < 0.5/1.0 mV IN LIMB/CHEST LEADS] POSSIBLE ANTERIOR MYOCARDIAL INFARCTION , PROBABLY OLD [30 ms Q WAVE IN per DR Parra. Called and discussed wit DR Parra. PT's mother had extensive cardiac history as well as sister, so would be prudent to f/u with crop quantitative geneticist. Meanwhile, reduce cardiac risks: lose weight, statin, asa, increase physical activity, keep BS well controlled, no smoking, limit or stop alcohol. Pt is to f/u with cardiology as an oupt. - she was started on pepcid yesterday which will be continued for now. -will continue pepcid (6) Cough: Code(s): R05.9 - Cough, unspecified Status: Acute Assessment and Plan: c/o cough now- will order chest xray to ensure no pneumonia. PT is at higher risk to develop pneumonia as obese, recent surgery and mobility is somewhat limited due to h/o amputation. Continue to encourage to ambulate during the day, up to the chair tid at least and continue to do IS. Bumex today IV- monitor i/o echo is pending chest xray reviewed. NO need for any antibiotics for now Plan thank you for allowing us to consult on this patient will continue to comanage this patient along side with your treatment plan. Feel free to call the hospitalist group at any time for any questions or concerns. Time Spent With Patient Time with patient: Greater than 35 minutes Subjective Date/time seen: 08/08/25 13:49 Interval history: Marge Alarcon is a 64 year old female With severe heartburn, dysphagia and regurgitation. The patient has still with a hiatal hernia since the age of [address] scan on 07/07/2025 showed the following1. There is a 5.0 x 5.8 x 5.2 cm heterogeneous masslike structure in the right lobe of the liver near the liver dome. The finding heterogeneously enhances with contrast administration. There is a 1.3 cm central low-density region postcontrast. The finding is nonspecific. A biopsy is recommended. 2. Indeterminant 1.9 cm low-density lesion in the medial segment of the left lobe of the liver anteriorly. The finding does not enhance with contrast ministration. A liver mass MRI is recommended. 3. There is a 2.3 cm left adrenal nodule. CT findings suggest an adrenal adenoma. A follow- up CT study in 6 months recommended. 4. Stable hiatal hernia. 5. Cholelithiasis. the patient was taken to surgery today on 08/03/[address] Blake waller for a robotic laparoscopic repair of large paraesophageal hiatal hernia with fundoplasty and fundopexy. the hospitalist team was consulted for medical management on the date of service of 08/03/2025. pt is seen and examined. She used to be on mounjaro but stopped taking it as was experiencing rapid hair loss. She is calm and comfortable. [place] cath. no gas/no bm but states she will be ambulating up to the chair later today. 08/05 diet is advanced per surgery. bs reviewed and stable. pain is well controlled. 08/06 brief episode of chest/upper epigastric pain yesterday. ekg, trop completed. Pt used to get those often in the past for which GI cocktail helped. She was started on pepcid. cardiology will f/u as an outpt. she is still requiring IV pain meds but it is less often now. 08/07 pt is seen and examined. she is requesting benadryl for itchiness that she is experiencing at times. no more reports of chest pain but has cough now DENIES ANY SPUTUM Doing IS and ambulating some 08/08 proBNP is elevated waiting for ECHO. BUmex is ordered today per surgery. she needs to ambulate tid at least. she denies any acute complains. breathing better. Getting cleaned up. 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) Integumentary/Breasts: Skin/Breast: Reports alopecia Neurologic: Reports as per HPI and Denies confusion Psychiatric: Psychiatric: Denies confusion Endocrine: Endocrine: Reports as per HPI Exam Const: General: cooperative, comfortable, no acute distress, alert and awake; No confusion Orientation/consciousness: patient oriented x3 HENMT: Head: normocephalic Eyes: Conjunctivae: conjunctivae normal EOM: EOMs intact bilaterally Resp: Effort & Inspection: normal respiratory effort Auscultation: clear to auscultation bilaterally Cardio: Rate: regular rate Rhythm: regular rhythm Heart sounds: no gallops and no murmurs GI: Inspection: non-distended GI Palp: Yes Tenderness to palpation present (GI) Auscultation: normal bowel sounds Other: 5 laparoscopic incisions noted to be well approximated without any drainage. healing well Urinary Catheter: Urinary Catheter: patent and draining and urine clear Skin: Lesions: no lesions Rashes: no rashes Neuro: General: patient oriented x3, no focal motor deficits and No confusion Extrem: General: no clubbing, cyanosis or edema and edema Right lower extremity: lower leg (right BKA) Psych: Affect: normal affect Thought process: Normal thought process present Insight: Good insight present (Psych) Objective Data Vital Signs Vital Signs: Vital Signs - 24 hr 08/07/25 14:03 08/07/25 18:27 08/07/25 19:37 Temperature 97.9 F 97.3 F L Pulse Rate 70 77 77 Respiratory Rate 18 18 18 Blood Pressure 144/63 H 114/66 Pulse Oximetry 98 98 Oxygen Delivery Room Air 08/07/25 21:09 08/08/25 03:57 08/08/25 09:25 Temperature 98.3 F 98.1 F 97.9 F Pulse Rate 76 82 78 Respiratory Rate 18 17 16 Blood Pressure 114/50 L 154/81 H 132/63 Pulse Oximetry 96 95 94 Oxygen Delivery 08/08/25 09:52 Temperature Pulse Rate Respiratory Rate Blood Pressure Pulse Oximetry Oxygen Delivery Room Air Intake/Output Intake/Output: Intake & Output 08/05/25 08/06/25 08/07/25 08/08/25 23:59 23:59 23:59 23:59 Intake Total 4414.3 2400 1800 715 Output Total 725 705 638 6169 Balance 3689.3 7485 131 -8580 Meds/Results Medications: Active Medications Generic Name Dose Route Start Last Admin Trade Name Freq PRN Reason Stop Dose Admin Acetaminophen 650 mg 08/04/25 08:01 08/08/25 08:51 Acetaminophen Elixir 325 Mg/10.15 Ml Udc PO 650 mg Q4H PRN Administration Mild Pain (1-3) or Fever Hydrocodone Bitart/Acetaminophen 1 tab 08/07/25 12:57 Hydrocodone/Acetaminophen (*Crx) 10-325 Mg Tablet PO Q6H PRN Pain Rated 4-6 Hydrocodone Bitart/Acetaminophen 2 tab 08/08/25 09:25 Hydrocodone/Acetaminophen (*Crx) 7.5-325 Mg Tablet PO Q6H PRN Pain Rated 7-10 Albuterol 2 puff 08/03/25 19:14 Albuterol Sulfate (*Sp) Aerosol 1 Puff INHALATION Q6-8H PRN Shortness Of Breath Or Wheezing Alprazolam 0.5 mg 08/03/25 19:14 Alprazolam (*Crx) 0.5 Mg Tablet PO TID PRN Anxiety Azelastine HCl 1 spray 08/03/25 19:14 Azelastine Hcl Nasal 0.1% 137 Mcg/Spr 30 Ml Btl NASAL Q12H PRN ALLERGIES Cyclobenzaprine HCl 10 mg 08/05/25 17:58 08/08/25 12:26 Cyclobenzaprine Hcl 10 Mg Tablet PO 10 mg Q8H PRN Administration Muscle Spasm Dextrose 12.5 gm 08/03/25 19:14 Dextrose 50% 25 Gm/50 Ml Syringe IV PUSH PRN PRN Hypoglycemia Protocol Diphenhydramine HCl 50 mg 08/07/25 10:40 08/07/25 17:35 Diphenhydramine Hcl Cap 25 Mg Capsule PO 50 mg Q6H PRN Administration Itching Enoxaparin Sodium 40 mg 08/05/25 09:00 08/08/25 08:36 Enoxaparin 40 Mg/0.4 Ml Syringe SUB-Q 40 mg DAILY AIDAN Administration Gabapentin 1,200 mg 08/04/25 10:40 08/08/25 13:40 Gabapentin 400 Mg Capsule BY MOUTH 1,200 mg Q8HR AIDAN Administration Glucagon 1 mg 08/03/25 19:14 Glucagon For Inj 1 Mg Vial IM PRN PRN Hypoglycemia Protocol Glucose 15 gm 08/03/25 19:14 Glucose Oral Gel 15 Gm Of Glucse In 37.5 Gm Tube PO PRN PRN Hypoglycemia Protocol Hydromorphone HCl 1 mg 08/03/25 19:14 08/05/25 04:47 Hydromorphone Hcl Inj (*Crx) 1 Mg/Ml Syr IV PUSH 1 mg Q2H PRN Administration Breakthrough Pain Rated 4-6 or NPO Hydromorphone HCl 2 mg 08/03/25 19:24 08/07/25 05:35 Hydromorphone Hcl Inj (*Crx) 2 Mg/Ml Vial IV PUSH 2 mg Q2H PRN Administration Breakthrough Pain Rated 7-10 or NPO Dextrose 1,000 mls @ 100 mls/hr 08/03/25 21:04 Dextrose 5% 1,000 Ml IVPB PRN PRN Hypoglycemia Protocol Insulin Aspart 2 - 5 units 08/07/25 17:00 08/08/25 12:23 Insulin Aspart (*Bkc) 100 Units/Ml SUB-Q 2 units TIDWM AIDAN Administration Protocol Insulin Aspart 1 - 2 units 08/07/25 21:00 08/07/25 21:14 Insulin Aspart (*Bkc) 100 Units/Ml SUB-Q Not Given HS AIDAN Protocol Insulin Glargine 7 units 08/07/25 21:00 08/07/25 21:13 Insulin Glargine (*Bkc) 100 Units/Ml SUB-Q 7 units HS AIDAN Administration Magnesium Oxide 200 mg 08/04/25 09:00 08/08/25 08:06 Magnesium Oxide 200 Mg Tablet PO 200 mg DAILY AIDAN Administration Naloxone HCl 0.1 mg 08/03/25 19:14 Naloxone Hcl 0.4 Mg/Ml Vial IV PUSH Q2M PRN Opiate Reversal Ondansetron HCl 4 mg 08/03/25 19:14 08/03/25 20:16 Ondansetron Inj 4 Mg/2 Ml Vial IV PUSH 4 mg Q4H PRN Administration Nausea And Vomiting Perflutren Lipid Microsphere 0 ml 08/07/25 16:24 Perflutren Lipid Microspheres 1.5 Ml Vial Diluted To 10 Ml Total Volume IV PUSH 08/10/25 16:24 ONCE PRN adequate visualization Protocol Polyethylene Glycol 17 gm 08/08/25 09:00 08/08/25 08:07 Polyethylene Glycol 3350 17 Gm Powd.Pack PO 17 gm QAM AIDAN Administration Potassium Chloride 40 meq 08/08/25 17:00 Potassium Chloride 20 Meq Packet (For Liquid) PO 08/10/25 09:05 BID AIDAN Rosuvastatin Calcium 5 mg 08/03/25 19:20 08/07/25 17:34 Rosuvastatin 5 Mg Tablet BY MOUTH 5 mg QPM AIDAN Administration Sodium Chloride 10 ml 08/06/25 22:00 08/08/25 13:41 Saline Lock Flush IV PUSH 10 ml Q8HR AIDAN Administration Radiology Results: ITS Impressions Chest X-Ray 08/07/25 13:21 Impression: CHF. Superimposed probable pneumonia. The findings are new compared to the previous study. Labs Labs: Laboratory Results - last 24 hr 08/07/25 08/07/25 08/07/25 17:16 17:28 20:53 WBC RBC Hgb Hct MCV MCH MCHC RDW Plt Count MPV Sodium Potassium Chloride Carbon Dioxide Anion Gap BUN Creatinine Estim Creat Clear Calc Estimated GFR Glucose POC Capillary Glucose 243 H 161 H Calcium NT-Pro-B Natriuret Pep 926 H 08/08/25 08/08/25 08/08/25 04:48 07:45 12:07 WBC 5.1 RBC 3.56 L Hgb 10.0 L Hct 32.6 L MCV 91.6 MCH 28.1 MCHC 30.7 L RDW 15.6 H Plt Count 148 L MPV 11.5 H Sodium 138 Potassium 3.6 Chloride 99 Carbon Dioxide 36 H Anion Gap 3 L BUN 12 Creatinine 0.96 Estim Creat Clear Calc 77 Estimated GFR 59 Glucose 175 H POC Capillary Glucose 176 H 226 H Calcium 8.6 NT-Pro-B Natriuret Pep Quality VTE Prophylaxis VTE prophylaxis: mechanical ordered and pharmacologic ordered
[2025-08-08 16:00] VITALS: BP 114/59; PULSE 73; RESP 16; TEMP 36.2; O2SAT 94
[2025-08-08] MEDS: HYDROcodone/acetaminophen (*CRX) 7.5-325 MG TABLET 2 TAB PO ×2 (16:08→22:01)
[2025-08-08] MEDS: ROSUVASTATIN 5 MG TABLET BY MOUTH (17:30)
[2025-08-08 20:00] VITALS: BP 118/55; PULSE 77; RESP 18; TEMP 36.8; O2SAT 95
[2025-08-08] MEDS: INSULIN GLARGINE (*BKC) 100 UNITS/ML 10 UNITS SUB-Q (21:23)
[2025-08-09] VITALS: BP 115/56; PULSE 81; RESP 16; TEMP 36.5; O2SAT 94
[2025-08-09 04:00] VITALS: BP 127/56; PULSE 75; RESP 18; TEMP 36.1; O2SAT 96
[2025-08-09] MEDS: HYDROcodone/acetaminophen (*CRX) 7.5-325 MG TABLET 2 TAB PO ×2 (04:51→11:11)
[2025-08-09 04:55] LABS: Hematocrit 36.3 % (37.0-47.0); Hemoglobin 11.2 g/dL (12.0-15.0); Mean Corpuscular HGB Conc 30.9 g/dl (32-36); Mean Corpuscular Hemoglobin 27.9 pg (26-34); Mean Corpuscular Volume 90.3 fl (80-100); Platelet Count Result 209 k/mm3 (150-375); Red Blood Count 4.02 M/mm3 (4.2-5.4); White Blood Count 5.2 K/mm3 (4.5-10.0)
[2025-08-09] MEDS: SALINE LOCK FLUSH 10 ML IV PUSH ×2 (05:02→13:02)
[2025-08-09] MEDS: GABAPENTIN 400 MG CAPSULE 1200 MG BY MOUTH ×2 (05:02→12:59)
[2025-08-09 05:04] LABS: Anion Gap 4 mmol/L (4-12); Blood Urea Nitrogen 13 mg/dL (7-17); Calcium 8.8 mg/dL (8.4-10.2); Carbon Dioxide 33 mmol/L (22-30); Chloride 99 mmol/L (98-107); Estimated CRCL calculation 74 ml/min; Estimated Glomerular Filt Rate 56; Glucose 168 mg/dL (65-110); Potassium 3.9 mmol/L (3.4-5.0); Sodium 136 mmol/L (137-145)
[2025-08-09] MEDS: CYCLOBENZAPRINE HCL 10 MG TABLET PO (06:20)
[2025-08-09 08:00] VITALS: BP 120/62; PULSE 72; RESP 18; TEMP 36.4; O2SAT 100
--- NOTE | 2025-08-09 08:31 | PM.IMPN ---
Progress Note: A&P Assessment and Plan (1) S/P laparoscopic fundoplication: Code(s): Z98.890 - Other specified postprocedural states Status: Acute Assessment and Plan: Date of Procedure 08/03/25 Pre-op Diagnosis paraesophageal hiatal hernia, GERD, dysphagia Procedure Performed Robotic laparoscopic repair large paraesophageal hiatal hernia with fundoplasty and fundopexy Surgeon Blake Hernandez MD - postop care per Dr. Hernandez - DVT prophylaxis is per Dr. Hernandez. - pain management per surgical team. (2) Diabetes: Qualifiers: Diabetes mellitus complication status: without complication Diabetes mellitus terminal gauger supervisor insulin use: with terminal gauger supervisor use Diabetes mellitus type: type 2 Qualified Code(s): E11.9 - Type 2 diabetes mellitus without complications; Z79.4 - custodial (current) use of insulin Code(s): E11.9 - Type 2 diabetes mellitus without complications Status: Chronic Assessment and Plan: - hypoglycemia protocol - POC blood glucose ACHS - home medication - empagliflozin 25 mg daily, lantus 13 units am and 13 units pm, - correct regimen ordered - SSI and 13 units lantus HS - A1C 7.5 (3) Epigastric abdominal pain: Code(s): R10.13 - Epigastric pain Status: Acute Assessment and Plan: Had an episode of epigastric/chest pain. EKG was done, troponins done(normal). EKG was read as LOW QRS VOLTAGE [QRS DEFLECTION < 0.5/1.0 mV IN LIMB/CHEST LEADS]POSSIBLE ANTERIOR MYOCARDIAL INFARCTION , PROBABLY OLD [30 ms Q WAVE IN per DR Parra. EKG discussed with DR Parra by prior provider. Patients mother had extensive cardiac history as well as sister, so would be prudent to f/u with document preparer microfilming. Meanwhile, reduce cardiac risks: lose weight, statin, asa, increase physical activity, keep BS well controlled, no smoking, limit or stop alcohol. Pt is to f/u with cardiology as an oupt. Rediscussed how patient can reduce cardiac risks and that she is to follow up with cardiology in the outpatient setting. (4) Phantom pain after amputation of lower extremity: Code(s): G54.6 - Phantom limb syndrome with pain Status: Chronic Assessment and Plan: - continue with patient's gabapentin (5) Cough: Code(s): R05.9 - Cough, unspecified Status: Acute Assessment and Plan: c/o cough- chest xray ordered to ensure no pneumonia. PT is at higher risk to develop pneumonia as obese, recent surgery and mobility is somewhat limited due to h/o amputation. Continue to encourage to ambulate during the day, up to the chair tid at least and continue to do IS. BNP 926 Chest XR showed CHF with possible superimposed pneumonia No antibiotic intervention started as patient remains afebrile without leukocytosis and denies shortness of breath Given a dose of IV bumex on 08/08 Plan for echo outpatient Time Spent With Patient Time with patient: 25 - 35 minutes Subjective Date/time seen: 08/09/25 08:31 Interval history: Patient is pleasant sitting up comfortably in bed. She states she is feeling much better and has no complaints denying chest pain, shortness a breath, palpitations, nausea/vomiting, abdominal pain, lower extremity edema. She states that she is getting discharged home today per surgery. Patient is eating well and has had a bowel movement since her operation. Review of Systems Review of Systems: All systems reviewed & are unremarkable except as noted in HPI and below (HPI) Exam Narrative: AF HR 72 RR 18 Spo2 100 BP 120/62 General: female in no acute respiratory distress who is nontoxic appearing, sitting up in bed. HEENT: Normocephalic. Atraumatic. Extraocular movement intact. Sclera clear and anicteric. No facial asymmetry. Chest: Lungs are clear to auscultation bilaterally. No wheezes or crackles. CV: Heart was regular rate and rhythm. Abd: Abdomen was soft. Nontender. Nondistended. Positive bowel sounds. Ext: No clubbing, cyanosis, or edema. Right BKA. Neuro: Patient is alert and oriented x4. Speech is clear. Objective Data Vital Signs Vital Signs: Vital Signs - 24 hr 08/08/25 09:25 08/08/25 09:52 08/08/25 16:00 Temperature 97.9 F 97.2 F L Pulse Rate 78 73 Respiratory Rate 16 16 Blood Pressure 132/63 114/59 L Pulse Oximetry 94 94 Oxygen Delivery Room Air 08/08/25 20:00 08/09/25 00:00 08/09/25 04:00 Temperature 98.2 F 97.7 F 97.0 F L Pulse Rate 77 81 75 Respiratory Rate 18 16 18 Blood Pressure 118/55 L 115/56 L 127/56 L Pulse Oximetry 95 94 96 Oxygen Delivery Intake/Output Intake/Output: Intake & Output 08/06/25 08/07/25 08/08/25 08/09/25 23:59 23:59 23:59 23:59 Intake Total 2400 1800 1510 300 Output Total 072 615 7989 Balance 2050 850 -1090 300 Meds/Results Medications: Active Medications Generic Name Dose Route Start Last Admin Trade Name Freq PRN Reason Stop Dose Admin Acetaminophen 650 mg 08/04/25 08:01 08/08/25 08:51 Acetaminophen Elixir 325 Mg/10.15 Ml Udc PO 650 mg Q4H PRN Administration Mild Pain (1-3) or Fever Hydrocodone Bitart/Acetaminophen 1 tab 08/07/25 12:57 Hydrocodone/Acetaminophen (*Crx) 10-325 Mg Tablet PO Q6H PRN Pain Rated 4-6 Hydrocodone Bitart/Acetaminophen 2 tab 08/08/25 09:25 08/09/25 04:51 Hydrocodone/Acetaminophen (*Crx) 7.5-325 Mg Tablet PO 2 tab Q6H PRN Administration Pain Rated 7-10 Albuterol 2 puff 08/03/25 19:14 Albuterol Sulfate (*Sp) Aerosol 1 Puff INHALATION Q6-8H PRN Shortness Of Breath Or Wheezing Alprazolam 0.5 mg 08/03/25 19:14 Alprazolam (*Crx) 0.5 Mg Tablet PO TID PRN Anxiety Azelastine HCl 1 spray 08/03/25 19:14 Azelastine Hcl Nasal 0.1% 137 Mcg/Spr 30 Ml Btl NASAL Q12H PRN ALLERGIES Cyclobenzaprine HCl 10 mg 08/05/25 17:58 08/09/25 06:20 Cyclobenzaprine Hcl 10 Mg Tablet PO 10 mg Q8H PRN Administration Muscle Spasm Dextrose 12.5 gm 08/03/25 19:14 Dextrose 50% 25 Gm/50 Ml Syringe IV PUSH PRN PRN Hypoglycemia Protocol Diphenhydramine HCl 50 mg 08/07/25 10:40 08/07/25 17:35 Diphenhydramine Hcl Cap 25 Mg Capsule PO 50 mg Q6H PRN Administration Itching Enoxaparin Sodium 40 mg 08/05/25 09:00 08/08/25 08:36 Enoxaparin 40 Mg/0.4 Ml Syringe SUB-Q 40 mg DAILY AIDAN Administration Gabapentin 1,200 mg 08/04/25 10:40 08/09/25 05:02 Gabapentin 400 Mg Capsule BY MOUTH 1,200 mg Q8HR AIDAN Administration Glucagon 1 mg 08/03/25 19:14 Glucagon For Inj 1 Mg Vial IM PRN PRN Hypoglycemia Protocol Glucose 15 gm 08/03/25 19:14 Glucose Oral Gel 15 Gm Of Glucse In 37.5 Gm Tube PO PRN PRN Hypoglycemia Protocol Hydromorphone HCl 1 mg 08/03/25 19:14 08/05/25 04:47 Hydromorphone Hcl Inj (*Crx) 1 Mg/Ml Syr IV PUSH 1 mg Q2H PRN Administration Breakthrough Pain Rated 4-6 or NPO Hydromorphone HCl 2 mg 08/03/25 19:24 08/07/25 05:35 Hydromorphone Hcl Inj (*Crx) 2 Mg/Ml Vial IV PUSH 2 mg Q2H PRN Administration Breakthrough Pain Rated 7-10 or NPO Dextrose 1,000 mls @ 100 mls/hr 08/03/25 21:04 Dextrose 5% 1,000 Ml IVPB PRN PRN Hypoglycemia Protocol Insulin Aspart 2 - 5 units 08/07/25 17:00 08/08/25 17:31 Insulin Aspart (*Bkc) 100 Units/Ml SUB-Q 2 units TIDWM AIDAN Administration Protocol Insulin Aspart 1 - 2 units 08/07/25 21:00 08/08/25 21:17 Insulin Aspart (*Bkc) 100 Units/Ml SUB-Q Not Given HS AIDAN Protocol Insulin Glargine 10 units 08/08/25 21:00 08/08/25 21:23 Insulin Glargine (*Bkc) 100 Units/Ml SUB-Q 10 units HS AIDAN Administration Magnesium Oxide 200 mg 08/04/25 09:00 08/08/25 08:06 Magnesium Oxide 200 Mg Tablet PO 200 mg DAILY AIDAN Administration Naloxone HCl 0.1 mg 08/03/25 19:14 Naloxone Hcl 0.4 Mg/Ml Vial IV PUSH Q2M PRN Opiate Reversal Ondansetron HCl 4 mg 08/03/25 19:14 08/03/25 20:16 Ondansetron Inj 4 Mg/2 Ml Vial IV PUSH 4 mg Q4H PRN Administration Nausea And Vomiting Perflutren Lipid Microsphere 0 ml 08/07/25 16:24 Perflutren Lipid Microspheres 1.5 Ml Vial Diluted To 10 Ml Total Volume IV PUSH 08/10/25 16:24 ONCE PRN adequate visualization Protocol Polyethylene Glycol 17 gm 08/08/25 09:00 08/08/25 08:07 Polyethylene Glycol 3350 17 Gm Powd.Pack PO 17 gm QAM AIDAN Administration Potassium Chloride 40 meq 08/08/25 17:00 08/08/25 17:31 Potassium Chloride 20 Meq Packet (For Liquid) PO 08/10/25 09:05 40 meq BID AIDAN Administration Rosuvastatin Calcium 5 mg 08/03/25 19:20 08/08/25 17:30 Rosuvastatin 5 Mg Tablet BY MOUTH 5 mg QPM AIDAN Administration Sodium Chloride 10 ml 08/06/25 22:00 08/09/25 05:02 Saline Lock Flush IV PUSH 10 ml Q8HR AIDAN Administration Radiology Results: ITS Impressions Chest X-Ray 08/07/25 13:21 Impression: CHF. Superimposed probable pneumonia. The findings are new compared to the previous study. Labs Labs: Laboratory Results - last 24 hr 08/08/25 08/08/25 08/08/25 12:07 16:55 20:30 WBC RBC Hgb Hct MCV MCH MCHC RDW Plt Count MPV Sodium Potassium Chloride Carbon Dioxide Anion Gap BUN Creatinine Estim Creat Clear Calc Estimated GFR Glucose POC Capillary Glucose 226 H 203 H 184 H Calcium 08/09/25 08/09/25 04:31 08:08 WBC 5.2 RBC 4.02 L Hgb 11.2 L Hct 36.3 L MCV 90.3 MCH 27.9 MCHC 30.9 L RDW 15.9 H Plt Count 209 MPV 10.9 H Sodium 136 L Potassium 3.9 Chloride 99 Carbon Dioxide 33 H Anion Gap 4 BUN 13 Creatinine 1.00 Estim Creat Clear Calc 74 Estimated GFR 56 L Glucose 168 H POC Capillary Glucose 175 H Calcium 8.8 Quality VTE Prophylaxis VTE prophylaxis: mechanical ordered and pharmacologic ordered
[2025-08-09] MEDS: ENOXAPARIN 40 MG/0.4 ML SYRINGE SUB-Q (08:58)
[2025-08-09] MEDS: POTASSIUM CHLORIDE 20 MEQ PACKET (FOR LIQUID) 40 MEQ PO (08:59)
[2025-08-09] MEDS: MAGNESIUM OXIDE 200 MG TABLET PO (08:59)
[2025-08-09 12:00] VITALS: BP 101/70; PULSE 76; RESP 18; TEMP 36.8; O2SAT 100
[2025-08-09] MEDS: INSULIN ASPART (*BKC) 100 UNITS/ML SUB-Q (12:58)
--- NOTE | 2025-08-09 14:44 | PM.DS ---
DS: Admitting Diagnosis Discharge Date 08/09/2025 Admitting Diagnosis Paraesophageal hiatal hernia, GERD, dysphagia DS: Discharge Diagnosis Discharge Diagnosis (1) Paraesophageal hiatal hernia: Code(s): K44.9 - Diaphragmatic hernia without obstruction or gangrene Status: Chronic (2) S/P laparoscopic fundoplication: Code(s): Z98.890 - Other specified postprocedural states Status: Acute (3) Chronic narcotic dependence: Code(s): F11.20 - Opioid dependence, uncomplicated Status: Chronic (4) Diabetes: Qualifiers: Diabetes mellitus complication status: without complication Diabetes mellitus care home insulin use: with terminal makeup operator use Diabetes mellitus type: type 2 Qualified Code(s): E11.9 - Type 2 diabetes mellitus without complications; Z79.4 - meterman (current) use of insulin Code(s): E11.9 - Type 2 diabetes mellitus without complications Status: Chronic (5) Anemia: Code(s): D64.9 - Anemia, unspecified Status: Chronic (6) Hx of right BKA: Code(s): Z89.511 - Acquired absence of right leg below knee Status: Chronic DS: Summary Hospital Course Reason for hospitalization: Patient has had a longstanding esophageal hiatal hernia which has gotten worse. She has severe dysphagia, difficulty eating with pain after eating and heartburn. EGD demonstrated paraesophageal hiatal hernia with an inability to pass the scope into the duodenum. Upper GI showed spontaneous reflux and difficulty passing contrast beyond stomach. It also showed a shortened esophagus. Patient was admitted for surgical repair with fundoplication. Hospital Course: Patient was taken back to surgery and put under general anesthesia. 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 The portion in the mediastinum was very dilated and elongated, likely due to poor passage of gas and fluids distally. The hiatal hernia was exceptionally large. The hernia sac was extremely large and a long time to dissect and removed from the. 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 The surgery took nearly 5 hours. The patient was awakened, extubated, and transferred to recover in good condition. Patient stayed overnight and hospitalist team was consulted for medical management. Patient was complaining of excessive gas and patient was encouraged to move in med as much as possible. DVT prophylaxis started. Clear liquid diet ordered. Patient complained of some dysphagia which is expected after her long surgery. Patient given oxycodone elix rather than her home [place] for chronic pain. Patient also noted some substernal chest pain when moving and taking deep breaths. Diabetes managed by hospitalist team. EKG 08/05 showed possible anterior myocardial infarction, probably old. Troponins obtain. These results were discussed between hospitalist and Dr. Castaneda and Cardiology. Patient's mother had extensive cardiac history as well as her sister, so would be prudent to follow up with hardware engineer. Meanwhile, reduced cardiac risk by losing weight, statin, ASA, increased physical activity, keep BS well controlled, no smoking, limiter stop alcohol. Patient is to follow-up with cardiology as an outpatient. She was started on Pepcid. No true shortness of breath noted. Patient did well over the weekend. Noted some dysphagia still. On Tuesday 08/07 patient was tolerating full liquid diet. She noted some itching all over her body that had been present since Thursday. Patient given a dose of Benadryl. She noted an episode of ?foamy? belching. She also states that she coughed up a small amount of old blood over the weekend. No true vomiting or retching. Patient did have a small bowel movement the night of 08/07. Patient holding on the excess fluid. She was given Bumex and potassium on 08/07 and 08/08. Patient noticed some coughing. A chest x-ray on 08/07 reported suggested pneumonia, but this was likely just pulmonary edema, and not true pneumonia as she had no other symptoms or signs of infection. Patient was noted to have a lower potassium level on 08/07 and 08/08. This was repleted with oral KCl. WBC remained normal throughout her stay. On 08/08 patient noted an episode of regurgitation, but accredited this to taking too big of a drink in a short amount of time. She then began tolerating thicker liquids and food much better. Patient tolerating pain with oral medications. On 08/09 patient doing well. Minimal abdominal pain. No nausea or vomiting. No regurgitation symptoms throughout the night or into the morning. Voiding appropriately. Patient is surgically stable for discharge. Her potassium level was 3.9. She will be sent home with a 5 day course of oral potassium. Status at Discharge Functional status at discharge: wheelchair bound Overall status at discharge: patient is back to baseline Time Spent with Patient Time attestation: Total time spent providing and/or coordinating discharge services: Time spent: Greater than 30 minutes Exam Const: General: comfortable and no acute distress Eyes: General: appearance normal, both eyes and all related structures Neck: Neck: supple Resp: Effort & Inspection: normal respiratory effort Cardio: Rate: regular rate GI: GI Palp: Yes Soft to palpation, Yes Tenderness to palpation present (GI) (Mild tenderness around incisional sites.), No Guarding due to palpation present (GI) and No Hernia present Auscultation: normal bowel sounds Skin: General skin exam: normal color and no rashes or lesions noted Neuro: Sensory Exam: normal sensation Extrem: General: normal to inspection Psych: Mental Status: mental status grossly normal DS: Data Data Completed and Pending Completed studies during hospitalization: Pending at discharge 08/03/25 14:14 Surgical [PTH] Routine Labs on day of discharge: Labs from last 24 hours 08/09/25 08/09/25 08/09/25 12:00 08:08 04:31 WBC 5.2 RBC 4.02 L Hgb 11.2 L Hct 36.3 L MCV 90.3 MCH 27.9 MCHC 30.9 L RDW 15.9 H Plt Count 209 MPV 10.9 H Sodium 136 L Potassium 3.9 Chloride 99 Carbon Dioxide 33 H Anion Gap 4 BUN 13 Creatinine 1.00 Estim Creat Clear Calc 74 Estimated GFR 56 L Glucose 168 H POC Capillary Glucose 219 H 175 H Calcium 8.8 08/08/25 08/08/25 20:30 16:55 WBC RBC Hgb Hct MCV MCH MCHC RDW Plt Count MPV Sodium Potassium Chloride Carbon Dioxide Anion Gap BUN Creatinine Estim Creat Clear Calc Estimated GFR Glucose POC Capillary Glucose 184 H 203 H Calcium Procedures/Treatments: Procedures Operation Date: 08/03/25 12:00 Actual Procedure Side Surgeon p Robotic Repair Paraesophageal Hiatal Hernia with Fundoplication Not Applicable Blake Hernandez MD Imaging Radiologist's impression: ITS Impressions Chest X-Ray 08/07/25 13:21 Impression: CHF. Superimposed probable pneumonia. The findings are new compared to the previous study. Discharge Plan Discharge Attending physician on discharge: Blake Hernandez Consulting providers: Jesenia Yañez; Gabi Toure Discharging Clinician: Dinorah Sanabria Patient Disposition: Home Activity: may shower Diet: other - see discharge instructions Wound Care Instructions: follow printed instructions Discharge Instructions: OK to shower. No soaking in a bath, pool, [place]ynn, or any other body of water for the next two weeks. No lifting more than 10-15 pounds for the next two weeks. Call the office at or go to the emergency department if you develop any increased redness, increased pain, or drainage from the incisions. Do the same if you develop any fevers, vomiting, or shortness of breath. Keep regularly scheduled follow-up appointment with Dr. Hernandez on 08/17/25. Take Tylenol and Ibuprofen as needed for pain. No narcotics will be prescribed upon discharge, as you are currently prescribed narcotics by your primary care provider. Maintain a full liquid diet. This is very important. A handout is attached in the discharge packet. Patient Instructions: Antibiotic Form, Full Liquid Diet (DC), Midline Catheter (GEN) Patient Language: Chadian Stand Alone Forms: General Discharge Information Follow-up/Referrals: Bony Parra MD [Physician, Cardiology] - Call for Appointment Blake Hernandez MD [Physician, General Surgery] - Keep Reg. Scheduled Appt. Referral Note: 08/17/25 Discharge Medications: New potassium chloride [Klor-Con M20] 20 mEq tablet,ER particles/crystals 20 meq PO DAILY Qty: 5 0RF Continued (DME) blood-glucose meter [CareTouch Glucose Monitoring] Kit See Rx Instructions .Route Qty: 1 0RF Rx Instructions: As directed azelastine 137 mcg (0.1 %) spray,non-aerosol 1 spray intranasal Q12H Qty: 30 3RF Patient Comments: Says takes as needed. Rx Instructions: administer into each nostril loratadine [Claritin] 10 mg tablet 10 mg PO DAILY Qty: 30 2RF (DME) blood-glucose meter [facility] See Rx Instructions .Route Qty: 1 0RF Rx Instructions: As directed check blood sugar tid gabapentin 600 mg tablet See Rx Instructions .ROUTE .COMPLEX Qty: 180 6RF Dose Instruction: TAKE 2 TABLETS BY MOUTH THREE TIMES DAILY Rx Instructions: TAKE 2 TABLETS BY MOUTH THREE TIMES DAILY magnesium 250 mg Tablet 250 mg PO DAILY albuterol sulfate 90 mcg/actuation HFA aerosol inhaler 2 puff inhalation Q6-8H PRN (Reason: shortness of breath or wheezing) (DME) pen needle, diabetic [BD Ultra-Fine Mini Pen Needle] 31 gauge x 3/16 needle See Rx Instructions .ROUTE .COMPLEX Qty: 100 3RF Dose Instruction: DIRECTED WITH LANTUS TWICE DAILY Rx Instructions: DIRECTED WITH LANTUS TWICE DAILY hyoscyamine sulfate 0.125 mg tablet 0.125 mg sublingual Q6-8H PRN (Reason: dyspepsia) Qty: 120 5RF ibuprofen 800 mg tablet See Rx Instructions .ROUTE .COMPLEX Qty: 270 3RF Dose Instruction: TAKE 1 TABLET BY MOUTH THREE TIMES DAILY WITH FOOD FOR PAIN Rx Instructions: TAKE 1 TABLET BY MOUTH THREE TIMES DAILY WITH FOOD FOR PAIN naloxone [Narcan] 4 mg/actuation spray,non-aerosol 4 mg intranasal Q2-3M PRN (Reason: opioid overdose) Qty: 2 0RF Rx Instructions: spray 1 dose into ONE nostril; alternate nostrils w each dose until help arrives Jardiance 25 mg tablet See Rx Instructions .ROUTE .COMPLEX Qty: 90 3RF Dose Instruction: TAKE 1 TABLET BY MOUTH EVERY DAY Rx Instructions: TAKE 1 TABLET BY MOUTH EVERY DAY rosuvastatin 5 mg tablet See Rx Instructions .ROUTE .COMPLEX Qty: 90 3RF Dose Instruction: TAKE 1 TABLET BY MOUTH EVERY DAY IN THE EVENING Rx Instructions: TAKE 1 TABLET BY MOUTH EVERY DAY IN THE EVENING ferrous sulfate 325 mg (65 mg iron) tablet,delayed release (DR/EC) See Rx Instructions .ROUTE .COMPLEX Qty: 90 3RF Dose Instruction: TAKE 1 TABLET BY MOUTH DAILY Rx Instructions: TAKE 1 TABLET BY MOUTH DAILY polyethylene glycol 3350 [Miralax] 17 gram/dose powder 17 g PO DAILY PRN (Reason: Constipation) Qty: 510 6RF famotidine 20 mg tablet See Rx Instructions .ROUTE .COMPLEX Qty: 90 3RF Dose Instruction: TAKE 1 TABLET BY MOUTH EVERY DAY Rx Instructions: TAKE 1 TABLET BY MOUTH EVERY DAY ondansetron 4 mg tablet,disintegrating See Rx Instructions .ROUTE .COMPLEX Qty: 20 3RF Dose Instruction: DISSOLVE 1 TABLET IN MOUTH EVERY 6 HOURS NEEDED FOR NAUSEA AND VOMITING Rx Instructions: DISSOLVE 1 TABLET IN MOUTH EVERY 6 HOURS NEEDED FOR NAUSEA AND VOMITING omeprazole 40 mg capsule,delayed release(DR/EC) See Rx Instructions .ROUTE .COMPLEX Qty: 90 3RF Dose Instruction: TAKE 1 CAPSULE BY MOUTH DAILY Rx Instructions: TAKE 1 CAPSULE BY MOUTH DAILY (DME) lancets [CareTouch Twist Lancet] 33 gauge misc See Rx Instructions .Route Qty: 300 3RF Rx Instructions: As directed, 3 x a day (DME) CareTouch Test Strip Strip See Rx Instructions .Route Qty: 300 3RF Rx Instructions: As directed 3 times a day insulin glargine [Lantus Solostar U-100 Insulin] 100 unit/mL (3 mL) insulin pen See Rx Instructions subcut .COMPLEX Rx Instructions: 13 units in am and 13 units in pm subcutaneously; alprazolam 0.5 mg tablet 0.5 mg PO TID PRN (Reason: anxiety) Qty: 90 1RF nystatin 100,000 unit/mL suspension See Rx Instructions .ROUTE .COMPLEX Qty: 500 0RF Dose Instruction: USE 10ML BY MOUTH DAILY SWISH AND SWALLOW Rx Instructions: USE 10ML BY MOUTH DAILY SWISH AND SWALLOW hydrocodone-acetaminophen 10-325 mg tablet 1.5 tablet PO Q8H PRN (Reason: post op pain) Qty: 63 0RF Date of admission: 08/03/25 19:14 Primary Care Provider: Lakshmi Ramos Admitting Provider: Blake Hernandez Attending physician on admission: Blake Hernandez Condition: Improved
== END 2025-08-09 14:30 | disposition home or self-care (01) | DRG 327 ==
LOC: ANH2MED 08-04 07:17 → ANHSURGERY 08-04 07:18 → ANH2MED 08-04 07:18
PROVIDERS: General Practice; Nurse Practitioner; Surgery; Admitting Provider Surgery; PCP Nurse Practitioner Adult Health
PROC: 0DV44ZZ Restriction of Esophagogastric Junction, Percutaneous Endoscopic Approach (ICD-10-PCS; CPT 43280; principal; 2025-08-03 12:00)
DX: K44.9 Diaphragmatic hernia without obstruction or gangrene (principal); F11.20 Opioid dependence, uncomplicated; K21.9 Gastro-esophageal reflux disease without esophagitis; R13.19 Other dysphagia; K76.9 Liver disease, unspecified; R05.9 Cough, unspecified; D64.9 Anemia, unspecified; J45.909 Unspecified asthma, uncomplicated; E11.42 Type 2 diabetes mellitus with diabetic polyneuropathy; I10 Essential (primary) hypertension; G54.6 Phantom limb syndrome with pain; Z89.511 Acquired absence of right leg below knee; Z79.4 Long term (current) use of insulin
CPT/HCPCS: 36410; 36415; 71045; 80048; 82948; 83036; 83880; 84484; 85027; 85055; 88302; 93005; J0690; A9270; C1751; J1100; J1171; J1596; J1650; J1815; J1885; J1939; J2003; J2250; J2371; J2405; J2704; J3010; J7120

== ENCOUNTER 2025-08-21 07:54 | Inpatient (IN) | payer OTHER, SELFPAY ==
[2025-08-21] VITALS (7 sets, daily range): BP systolic 132–152; BP diastolic 70–94; PULSE 68–78; RESP 12–18; TEMP 35.6–36.7; O2SAT 93–100; BMI 33.7
--- NOTE | ~2025-08-21 | XR_ITS ---
EXAMINATION: XR abdomen/kub 1V DATE: 08/21/2025 10:54 INDICATION: Unable to swallow food post hiatal hernia repair TECHNIQUE: A supine view of the abdomen on 3 radiographs was obtained. COMPARISON: CT dated 07/05/2025 FINDINGS: There is gaseous distention of the stomach. There is moderate amount of gas and stool scattered throughout the colon. No dilated loops of gas-filled small bowel to suggest obstruction. Severe lower lumbar facet osteoarthritis and moderate bilateral sacroiliac osteoarthritis. IMPRESSION: 1. Nonspecific gaseous distention of the stomach. No dilated loops of gas-filled small bowel to suggest obstruction. Reviewed, dictated and finalized at location A. IMPRESSION: 1. Nonspecific gaseous distention of the stomach. No dilated loops of gas-fille d small bowel to suggest obstruction.
--- NOTE | ~2025-08-21 | XR_ITS ---
. EXAMINATION: XR UGI w esoph water soluble DATE: 08/21/2025 10:56 INDICATION: Inability to eat following recent hiatal hernia repair with Sera fundoplication TECHNIQUE: The patient drank water-soluble contrast. Fluoroscopic spot radiographs of the hypopharynx, esophagus, stomach and proximal small bowel were obtained. Fluoroscopy exposure time was 2.1 minutes. A total of 871 fluoroscopic images recorded. Total DAP was 13.62 Gycm^2. COMPARISON: None. FINDINGS: The pharynx appears normal without evident mass lesion or mucosal irregularity. The esophagus is normal without mass or stricture. Esophageal motility is normal. There is however delayed passage of contrast into the stomach which is likely related to the patient's described as a likely Sera fundoplication. This results in persistent pooling of contrast in the mid to distal esophagus with multiple tertiary contractions. The maximal luminal diameter in the region of the suspected from indication measure up to 2.5 x 2.5 mm. There is no hiatal hernia. There is gaseous distention of the stomach. IMPRESSION: 1. Stenosis with delayed passage of contrast at the gastroesophageal junction likely related to a patient reported recent Sera fundoplication with lumen measuring up to 2.5 mm in maximal diameter and with pooling of contrast the more proximal mid to distal esophagus. Reviewed, dictated and finalized at location A. IMPRESSION: 1. Stenosis with delayed passage of contrast at the gastroesophageal junction l ikely related to a patient reported recent Sera fundoplication with lumen justina suring up to 2.5 mm in maximal diameter and with pooling of contrast the more p roximal mid to distal esophagus.
--- NOTE | ~2025-08-21 | XR_ITS ---
XR abdomen/kub 1V 08/25/2025 06:11 INDICATION: Gastric distention TECHNIQUE: KUB COMPARISON: None FINDINGS: Bowel gas pattern is normal. Moderate retained contrast in the colon which is nondilated. There is no evidence of free air, mass, organomegaly, ascites or obstruction. No abnormal calculi are seen. The bones appear intact. IMPRESSION: 1: No acute abdominal abnormality identified. Reviewed, dictated and finalized at location B.
--- NOTE | ~2025-08-21 | XR_ITS ---
Abdominal radiograph(s) INDICATION: Gastric distention COMPARISON: CT abdomen 1 day prior TECHNIQUE: 2 views supine AP abdomen FINDINGS/IMPRESSION: 1. Persistent gaseous gastric distention. 2. Enteric contrast throughout colon. 3. No enteric contrast remains within stomach or small bowel. 4. Scattered small bowel gas. 5. No other acute abnormality noted. Reviewed, dictated and finalized at location R.
--- NOTE | ~2025-08-21 | XR_ITS ---
XR abdomen/kub 1V 08/23/2025 06:07 INDICATION: Flank pain TECHNIQUE: KUB COMPARISON: None FINDINGS: Bowel gas pattern is normal. There is residual contrast in the colon. There is no evidence of free air, mass, organomegaly, ascites or obstruction. No abnormal calculi are seen. The bones appear intact. IMPRESSION: 1: No acute abdominal abnormality identified. Reviewed, dictated and finalized at location B.
--- NOTE | ~2025-08-21 | CT_ITS ---
EXAMINATION: CT abdomen wo con DATE: 08/21/2025 14:07 INDICATION: Gastric distention post hiatal hernia repair TECHNIQUE: Computed tomography (CT) of the abdomen and pelvis was performed without intravenous contrast. Automated exposure control and iterative reconstruction technique were employed. The dose-length product was 1139.33 mGy-cm. COMPARISON: CT dated 07/05/2025 and esophagram and upper GI study dated 08/21/2025 FINDINGS: Very small posterior layering right pleural effusion. Discoid atelectasis at the bilateral lung bases. Heart size is normal. No pericardial effusion. Postoperative change of interval hiatal hernia repair and likely Sera fundoplication. There is small amount of residual oral contrast material layering dependently in the distal esophagus. Large amount of contrast in the dependent aspect of the predominantly gas distended stomach and extending through the visualized small bowel and into the colon to the level of the mid transverse colon. 8.9 x 6.5 cm inferior mediastinal likely complex fluid collection, new since the prior study position along the left side of the distal esophagus in the region of the previously herniated portion of the stomach. The lesion is of relatively low but greater than simple fluid attenuation with suggestion of some internal high attenuation septations suggestive of a pos toperative hematoma. No stranding in the immediately adjacent medial style fat to elevate suspicion for abscess which could also be on the differential. No evidence of leakage of contrast evident on the prior esophagram GI study or evident mediastinal gas on the current CT images to suggest a postoperative perforation/leak. Multiple calcified gallstones filling the decompressed gallbladder. Again seen is prominent atrophy of the left hepatic lobe with peripheral wedge-shaped regions of decreased attenuation at the dome of the liver. Within this region at the anterior dome of the liver is an approximately 1.5 similar subtle hypodense lesion more difficult to appreciate on the current study than on the prior due to streak artifact from the oral contrast material in the stomach. 2.0 cm left adrenal adenoma with less than simple fluid attenuation. Normal appendix. No pathologically enlarged abdominal or upper pelvic lymphadenopathy. Mild lumbar and moderate lower thoracic spondylosis. IMPRESSION: 1. Postoperative change of interval hiatal hernia repair with likely Sera fundoplication. There is an 8.9 x 6.5 cm likely complex fluid collection in the inferior mediastinum the left of the esophagus in the region of the previously herniated stomach most likely representing a postoperative hematoma. Differential would include abscess although there is no surrounding inflammatory stranding to more specifically suggest this. 2. Indeterminate 1.5 similar hyperdense lesion at the dome of liver in the region of peripheral wedge-shaped region of decreased hepatic attenuation suggests scarring related to an indeterminate insult. Correlate with clinical history and consider further evaluation with or multiphase pre and postcontrast MRI. 3. Cholelithiasis. Reviewed, dictated and finalized at location A. IMPRESSION: 1. Postoperative change of interval hiatal hernia repair with likely Sera fun doplication. There is an 8.9 x 6.5 cm likely complex fluid collection in the in ferior mediastinum the left of the esophagus in the region of the previously he rniated stomach most likely representing a postoperative hematoma. Differential would include abscess although there is no surrounding inflammatory stranding to more specifically suggest this. 2. Indeterminate 1.5 similar hyperdense lesion at the dome of liver in the anjel on of peripheral wedge-shaped region of decreased hepatic attenuation suggests scarring related to an indeterminate insult. Correlate with clinical history an d consider further evaluation with or multiphase pre and postcontrast MRI. 3. Cholelithiasis.
--- NOTE | ~2025-08-21 | XR_ITS ---
Abdominal radiograph(s) INDICATION: Gastric distention COMPARISON: One day prior TECHNIQUE: 3 views supine AP abdomen FINDINGS: Unchanged persistent mild gastric gaseous distention. Unchanged enteric contrast throughout colon. Small bowel loops not well seen. Air-fluid levels and free air cannot be assessed on supine projection. No abnormal abdominal calcifications. No acute bony abnormality. IMPRESSION: 1. Mild gaseous gastric distention. 2. Unchanged persistent enteric contrast throughout colon. 3. No residual enteric contrast within stomach or small bowel. Reviewed, dictated and finalized at location R.
--- OUTSIDE RECORDS SUMMARY | 2025-08-21 08:02 | XMS_ITS | Clinical Summary ---
Author Organization [facility] Address [address] [place] [address] Phone Care Team Providers Care Credit Rating Checker Name Role Phone Analy Wilkerson APRN, RESIDENT DIRECTOR Unavailable Armen Johns MD Primary Care Provider [phone] Allergies Active Allergy Reactions Criticality Noted Date [...] 1/2 tab. Active Vitamin D3 1.25 MG (34471 UT) Capsule Take 5,000 Units by mouth [...] Department Care Team Description 06/12/2025 Results Follow-Up [facility] [address] [place] [address] Shad Ospina, PAC XR CHEST 2 VIEWS 06/11/2025 6:00 PM CDT Ancillary Procedure [facility] Diagnostic Radiology [facility] [address] [place] [address] Malini Weathers APRN, CNP Acute cough; SOB (shortness of breath) Discharge Disposition: Discharged to home or Selfcare 06/11/2025 5:15 PM CDT Urgent Care Visit [facility] [address] [place] [address] Malini Weathers APRN, CNP Acute cough (Primary Dx); Lower respiratory infection (e.g., bronchitis, pneumonia, pneumonitis, pulmonitis); SOB (shortness of breath); Nausea; Moderate persistent asthma with acute exacerbation; Type 2 diabetes mellitus with diabetic neuropathy, with long-term current use of insulin ([facility]) Discharge Disposition: Discharged to home or Selfcare 06/11/2025 Telephone [facility] [address] [place] [address] Nurse, Oterotrevor Alvarez [facility] xray results 06/11/2025 Travel from Last 3 Months Immunizations Immunization Administration Dates Next Due Influenza Vaccine, Quadrivalent, PF 0 11/2021,09/13/2021,03/11/2020,10/30 Influenza, Injectable, Quadrivalent 09/25/2016 Influenza, Seasonal, Injecta ble, Undefined 10/25/2015 Influenza,Split Virus,Trivalent,Injectable,PF 10/27/2013 Pneumococcal Vaccine Adult - 23 Valent 1,03/11/2020 Pneumococcal conjugate PCV20 , polysaccharide QNT181 conjugate, adjuvant, PF 05/09/2023 TDAP Vaccine 03/12/2019 [...] oz pur e alcohol) Rarely [facility] Utilities Answer Date Recorded In [...] any time in the past 12 m [facility], were you homeless or living in [...] 128.4 kg (283 lb) 01/12/2025 8:44 AM PSYCHIC READER Height 182.9 cm (6') 01/12/2025 8:44 AM PSYCHIC READER Body Mass Index 38.38 01/12/2025 8:44 AM PSYCHIC READER Plan of Treatment Health Maintenance Due Date [...] (COMPREHENSIVE METABOLIC PANEL) STAT 01/11/2025 10:29 PM PSYCHIC READER HEMOGLOBIN A1C W/ ESTIMATED GLUCOSE STAT 01/11/2025 10:29 PM PSYCHIC READER STOOL, OCCULT BLOOD, DIAGNOSTIC, VIA GUAIAC Routine [...] Flex Young M.D. KR: LACI Report ID: [id number] Reading Location: [id number] Procedure Note Flex Young MD - 06/11/2025 [...] Flex Young M.D. KR: LACI Report ID: [id number] Reading Location: [id number] IMPRESSION: No acute cardiopulmonary abnormality. Stable large hiatal hernia. Malini Weathers SLICE PLUG CUTTER OPERATOR HELPER, KEIRY IMG DIAGNOSTIC ORDER NICKI Final Result * POC SARS-COV-2 BY MOLECULAR (06/11/2025 5:47 PM CDT) SARSCOV2 Negative Negative, INVALID PROCEDURE CONTROL Valid 06/11/2025 5:47 PM CDT us Malini Weathers APRN, CNP POINT OF CARE TESTIN G (MANUAL) Final Result * (ABNORMAL) Hemoglobin A1C (if indicated) (01/11/2025 10:29 PM PSYCHIC READER) HGB-A1C 11.8(H) 4.0 - 6.0 % 01/12/2025 4:45 AM PSYCHIC READER [facility] Est Average Glucose 292.0 mg/dL 01/12/2025 4:45 AM PSYCHIC READER [facility] Blood Venipuncture / Unknown 01/11/2025 10:29 PM PSYCHIC READER 01/11/2025 10:45 PM PSYCHIC READER Narrative [facility] - 01/12/2025 4:45 AM PSYCHIC READER HEMOGLOBIN A1C: DIABETIC PATIENTS: WELL-CONTROLLED: 6.2 - 7.0 INTERMEDIATE WELL-CONTROLLED: 7.0 - 9.0 POORLY-CONTROLLED: >9.0 Specimens containing greater than 5% of Hemoglobin F may result in lower than expected % HbA1C results. us Katy Otero APRN, CNP CHEMISTRY ORDERABLES Yue l Result [facility] [address] [place] [address] * (ABNORMAL) CMP (01/11/2025 10:29 PM PSYCHIC READER) SODIUM 138 136 - 145 mmol/L 01/11/2025 11:07 PM PSYCHIC READER [facility] POTASSIUM 4.7 3.5 - 5.1 mmol/L 01/11/2025 11:07 PM PSYCHIC READER [facility] Comment: Specimen is hemolyzed. In vitro hemolysis could affect results. Clinical correlation advised. CHLORIDE 106 98 - 107 mmol/L 01/11/2025 11:07 PM PSYCHIC READER [facility] CO2, VENOUS 20(L) 22 - 30 mmol/L 01/11/2025 11:07 PM PSYCHIC READER [facility] ANION GAP 16.7 <18.0 mmol/L 01/11/2025 11:07 PM [facility] GLUCOSE 318(H) 70 - 99 mg/dL 01/11/2025 11:07 PM [facility] BUN 21(H) 10 - 20 mg/dL 01/11/2025 11:07 PM [facility] CREATININE, BLOOD 1.83(H) 0.60 - 1.00 mg/dL 01/11/2025 11:07 PM [facility] BUN/CREATININE RATIO 11(L) 12 - 20 ratio 01/11/2025 11:07 PM [facility] TOTAL PROTEIN 8.2(H) 6.0 - 8.0 g/dL 01/11/2025 11:07 PM [facility] Comment: Specimen is hemolyzed. In vitro hemolysis could affect results. Clinical correlation advised. ALBUMIN 3.5 3.5 - 5.0 g/dL 01/11/2025 11:07 PM [facility] A/G RATIO 0.7(L) 1.0 - 2.2 01/11/2025 11:07 PM [facility] CALCIUM 8.9 8.7 - 10.5 mg/dL 01/11/2025 11:07 PM [facility] T BILI 0.6 0.2 - 1.2 mg/dL 01/11/2025 11:07 PM [facility] SGOT (AST) 37 <43 U/L 01/11/2025 11:07 PM [facility] Comment: Specimen is hemolyzed. In vitro hemolysis could affect results. Clinical correlation advised. SGPT (ALT) 17 <56 U/L 01/11/2025 11:07 PM [facility] ALKALINE PHOSPHATASE 66 40 - 150 U/L 01/11/2025 11:07 PM [facility] GFR, ESTIMATED 31(L) >=60 01/11/2025 11:07 PM [facility] Comment: Creatinine Clearance is the preferred criteria for selecting drug dose adjustments in renally impaired patients. The GFR is provided as additional pertinent clinical information. GFR is reported in mL/min/1.73 sq m. Calculation based on the Chronic Kidney Disease Epidemiology Collaboration (CKD- EPI) equation refit without adjustment for race. GFR, EST. 34(L) >=60 025 11:07 PM PSYCHIC READER [facility] GFR, EST. NONAFRICAN 28(L) >=60 01/11/2025 11:07 PM PSYCHIC READER [facility] Blood Venipuncture / Unknown 01/11/2025 10:29 PM PSYCHIC READER 01/11/2025 10:45 PM PSYCHIC READER us Shady Irby MD CHEMISTRY ORDERABLES Final Result Performing Organization Address City/[facility]/ZIP Co de Phone Number [facility] [address] [place] [address] * Stool, Occult Blood, Diagnostic (03/11/2020 12:35 AM CDT) OCCULT BLOOD DIAG Negative Negative 03/11/2020 1:11 AM CDT [facility] Stool specimen (specimen) STOOL SPECIMEN / Unknown Non-Phlebotomy Collection / Unknown 03/11/2020 12:35 AM CDT 03/11/2020 12:41 AM CDT us Alyssia Leyva APRN, CNP BODY FLUIDS & STOOL S ORDERABLES Final Result [facility] [address] [place] [address] * BRIGITTE DIAG BILATERAL DIGITAL W CAD [...] exams dated: 11/03/2006, 11/04/2013, 10/27/2006, and 10/27/2006 [facility]. BREAST TISSUE:There are scattered fibroglandular [...] signed by: Sintia Duarte M.D. ll/:04/30/2018 11:30:16 Filter Helper: Marcia Resendiz (Chandu), [facility] letter sent: Normal Exam Reading location: [facility] OVERALL STUDY BIRADS: 2 Benign Procedure [...] exams dated: 11/03/2006, 11/04/2013, 10/27/2006, and 10/27/2006 [facility]. BREAST TISSUE:There are scattered fibroglandular [...] signed by: Sintia Duarte M.D. ll/:04/30/2018 11:30:16 Filter Helper: Marcia Resendiz (Chandu), [facility] letter sent: Normal Exam Reading location: [place] OVERALL STUDY BIRADS: 2 Benign Delia Yanez APRN, KEIRY IMG MAMMO ORDERABLES F inal Result from Last 3 Months or Most Recently Relevant to Health Maintenance Additional Health Concerns Infection Onset Date Last Indicated MRSA 01/14/2025 01/14/2025 Insurance [facility] Advance Directives * Full Code (Latest Code [...] measures to stabilize the patient. Care Teams Credit Rating Checker Relationship Specialty Start Date End Date Armen Johns MD PCP - General Family Medicine 05/26/22 Analy Wilkerson, SLICE PLUG CUTTER OPERATOR HELPER, RESIDENT DIRECTOR Nurse Practitioner Advanced Practice Nurse 07/25/16
--- OUTSIDE RECORDS SUMMARY | 2025-08-21 08:02 | XMS_ITS | Clinical Summary ---
Author Organization [facility] Address [address] [place] [address] Care Team Providers Care Certified Wellness Program Manager Name Role Phone Nena Garcia NP Unavailable [phone] Armen Johns MD Primary Care Provider [phone] Allergies Active Allergy Reactions Criticality Noted Date [...] 9 Active blood-glucose meter (ONETOUCH ULTRA2 METER) [facility] USE DIRECTED TO TEST BLOOD [...] neuropathy, without long-term current use of insulin ([facility]) 03/17/2019 Assessment & Plan (03/17/2019 4:18 PM CDT): 58-year-old woman with history of type 2 diabetes admitted March 12, 2019 after 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 She previously was intolerant of metformin [...] (03/12/2019): Added automatically from request for surgery [id number] Assessment & Plan (03/17/2019 4:19 PM CDT): We will work to improve glycemic control to assist in wound healing. Patient understands the need for long-term stable glycemic control. Side effects of the sulfonylurea agents were discussed in detail with her. Encounters Date Type Department Care Team Description 07/18/2025 7:38 AM CDT - 07/18/2025 11:59 PM CDT Hospital Encounter [facility] [address] [place] [address] Rad, Amh Fluoro Blake Hernandez MD Diaphragmatic hernia without obstruction or gangrene Discharge Disposition: Discharge to home or self care from Last 3 Months Immunizations Immunization Administration Dates Next Due Tdap 03/12/2019 Surgical History Surgery Date Site/Laterality Comments TUBAL LIGATION ENDOMETRIAL ABLATION HYSTERECTOMY 1990s for endometriosis BELOW KNEE LEG AMPUTATION 03/12/2019 Right for traumatic injury of R foot- caught under 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 CREATIVE DIRECTOR Pulse 70 10/16/2024 6:48 PM EXEC. CREATIVE DIRECTOR Temperature 36.7 C (98.1 F) 10/16/2024 6:48 PM EXEC. CREATIVE DIRECTOR Respiratory Rate 17 10/16/2024 6:48 PM EXEC. CREATIVE DIRECTOR Oxygen Saturation 98% 10/16/2024 6:48 PM EXEC. CREATIVE DIRECTOR Inhaled Oxygen Concentration - - Weight 136.1 kg (300 lb) 10/16/2024 6:48 PM EXEC. CREATIVE DIRECTOR per patient Height 182.9 cm (6') 10/16/2024 6:48 PM EXEC. CREATIVE DIRECTOR Body Mass Index 40.69 10/16/2024 6:48 PM EXEC. CREATIVE DIRECTOR Plan of Treatment Health Maintenance Due Date [...] DIGITAL MAMMOGRAPHY Routine 11/04/2013 2 :19 PM EXEC. CREATIVE DIRECTOR from Last 3 Months or Most Recently [...] Maria Niño D.O. PS: PS Report ID: [id number] Reading Location: [id number] Procedure Note Ana Maria Niño DO - 07/18/2025 EXAM DESCRIPTION: XR KUB REASON [...] Maria Niño D.O. PS: PS Report ID: [id number] Reading Location: [id number] Blake Hernandez MD IMG XR PROCEDURES Final [...] Maria Niño D.O. PS: PS Report ID: [id number] Reading Location: [place] [address] Procedure Note Ana Maria Niño, DO - [...] Maria Niño D.O. PS: PS Report ID: [id number] Reading Location: [place] [address] Blake Hernandez MD IMG FLUOROSCOPY PROCEDURES Fi [...] on 2018. HDL 45 >=40 mg/dL [facility] Comment: Interpretive Data Ages [...] 2018. LDL, calculated 121 <=129 mg/dL [facility] Comment: Interpretive Data Ages [...] last revised on 2018. Chol/HDL ratio 4 [facility] Blood specimen (specimen) 03/13/2019 1:03 AM CDT 03/13/2019 12:42 PM CDT Narrative [facility] - 03/14/2019 2:21 AM CDT Walker Lake MD LAB BLOOD ORDERABL ES Final Result Performing Organization Address [facility] de Phone Number [facility] Department [place] [address] * (ABNORMAL) Hemoglobin A1c (03/12/2019 2:48 PM CDT) Hgb A1C 9.3(H) 4.0 - 5.6 % [facility] Estimated Average Glucose 220 mg/dL [facility] Comment: The ADA recommends reporting an estimated Average Glucose (eAG) with all Hemoglobin A1c results using the equation derived from a study of 507 normal and diabetic adults. Minority populations were underrepresented and children were not included. (Diabetes Care 31:0161-2507, 2008). The eAG is not equivalent to a fasting glucose. Blood specimen (specimen) 03/12/2019 2:48 PM CDT 03/12/2019 3:01 PM CDT Narrative [facility] - 03/12/2019 9:09 PM CDT Jhonny Headley MD LAB BLOOD ORDERABLES Final R esult Performing Organization Address [facility] Co de Phone Number [facility] [place] [address] * DIGITAL MAMMOGRAPHY (11/04/2013 2:19 PM EXEC. CREATIVE DIRECTOR) Anatomical Region Laterality Modality Breast Mammography 11/04/2013 2:1 9 PM EXEC. CREATIVE DIRECTOR Narrative 11/04/2013 7:55 PM EXEC. CREATIVE DIRECTOR Screening Mamm Bi Acc#: [id number] DATE OF EXAM: Nov 04 2013 CLINICAL [...] Joan - 03/17/2017 Screening Mamm Bi Acc#: [id number] DATE OF EXAM: Nov 04 2013 CLINICAL [...] utilized in interpretation of these images. [facility] utilizes a reminder system to [...] Most Recently Relevant to Health Maintenance Insurance [facility] 9 Advance Directives For more information, please contact: [phone] * Full Code (Latest Code Status on File) Date Activated Date Inactivated Comments 03/12/2019 4:27 PM 03/17/2019 10:36 PM Care Teams Certified Wellness Program Manager Relationship Specialty [place] [id number] [address] [address] PCP - General Family Practice 05/27/22 [place] [address] [address] [address] 03/12/19
[2025-08-21 08:23] LABS: Hematocrit 40.8 % (37.0-47.0); Hemoglobin 12.5 g/dL (12.0-15.0); Immature Granulocyte Percent A 0.4 % (0-0.5); Lymphocytes Absolute Auto 1.91 K/mm3 (0.9-3.2); Mean Corpuscular HGB Conc 30.6 g/dl (32-36); Mean Corpuscular Hemoglobin 27.5 pg (26-34); Mean Corpuscular Volume 89.7 fl (80-100); Nucleated Red Blood Cells Absolute Auto 0.000 K/mm3 (0.0-0.012); Nucleated Red Blood Cells Perc 0.0 % (0.0-0.2); Platelet Count Result 406 k/mm3 (150-375); Red Blood Count 4.55 M/mm3 (4.2-5.4); White Blood Count 5.7 K/mm3 (4.5-10.0)
[2025-08-21 08:38] LABS: Alanine Aminotransferase 27 U/L (6-35); Albumin Level 3.9 g/dL (3.5-5.1); Alkaline Phosphatase 93 U/L (38-126); Anion Gap 7 mmol/L (4-12); Aspartate Amino Transferase 29 U/L (14-36); Bilirubin,Total 0.7 mg/dL (0.2-1.3); Blood Urea Nitrogen 11 mg/dL (7-17); Calcium 9.6 mg/dL (8.4-10.2); Carbon Dioxide 29 mmol/L (22-30); Chloride 103 mmol/L (98-107); Estimated CRCL calculation 87 ml/min; Estimated Glomerular Filt Rate > 60; Glucose 194 mg/dL (65-110); Lipase 31 U/L (23-300); Potassium 3.8 mmol/L (3.4-5.0); Sodium 139 mmol/L (137-145); Total Protein 8.2 g/dL (6.3-8.2)
--- NOTE | 2025-08-21 08:44 | ED.NAVMDI ---
HPI - Nausea/Vomiting/Diarrhea General Chief complaint: Nausea/Vomiting/Diarrhea Stated complaint: having trouble keeping things down Time Seen by Provider: 08/21/25 08:06 Source: patient, RN notes reviewed and old records reviewed Mode of arrival: ambulatory Limitations: no limitations History of Present Illness HPI Narrative: THis is a 64 year old female who is s/p robotic laparoscopic repair large paraesophageal hiatal hernia with fundoplasty and fundopexy performed 08/03/[address] Gore. She is coming to ER because she is having difficulty tolerating food and liquids. She states she was on liquid diet until 08/17/25 and she reports she was having intermittent trouble with liquid going all the way down. She reports she will feel it sitting in her chest and then she regurgitates phlegm and some food. She was evaluated by Dr. Gore last week and she was advanced to solids, she states Dr. Gore talked about admitting her. She reports she is still having trouble with food going down so she is here to get admitted . She reports Dr. Gore believes she is having inflammation to her esophagus. She denies chest pain, sob, fever, chills. SHe did having Diarrhea on Thursday. Related Data Home Medications ?Medication ?Instructions ?Recorded ?Confirmed ?Last Taken ?Type magnesium 250 mg tablet 250 mg PO DAILY 02/02/23 08/21/25 07/31/25 History insulin glargine 100 unit/mL (3 See Rx Instructions subcut .COMPLEX 07/10/25 08/21/25 08/02/25 History mL) subcutaneous pen (Lantus Solostar U-100 Insulin) albuterol sulfate 90 mcg/actuation 2 puff inhalation Q6-8H PRN 07/14/25 08/21/25 Unknown History aerosol inhaler shortness of breath or wheezing azelastine 137 mcg (0.1 %) nasal 1 spray intranasal Q12H PRN 08/21/25 08/21/25 Unknown History spray allergies Allergies Allergy/AdvReac Type Severity Reaction Status Date / Time bisacodyl (From Dulcolax Allergy Mild Swelling Verified 08/21/25 08:04 (bisacodyl)) amoxicillin Allergy Unknown Unknown Verified 08/21/25 08:04 nitrofurantoin Allergy Unknown Unknown Verified 08/21/25 08:04 Sulfa (Sulfonamide Allergy Unknown Unknown Verified 08/21/25 08:04 Antibiotics) ciprofloxacin Allergy Swelling Verified 08/21/25 08:04 of Lip/Tongue/Throat tirzepatide (From Mounjaro) AdvReac Intermediate Other Verified 08/21/25 08:04 codeine AdvReac Unknown Hallucinati Verified 08/21/25 09:23 ng metformin AdvReac cramping, Verified 08/21/25 08:04 nausea, abdominal pain morphine AdvReac Anxiety Verified 08/21/25 08:04 spironolactone AdvReac hypercalcem Verified 08/21/25 08:04 ia warfarin (From Coumadin) AdvReac hemorrage Verified 08/21/25 08:04 [facility] Past Medical History Medical History Hx of hiatal hernia S/P ROBO RE PARAESOPHAGEAL 08/03 DR. PATRICIA GORE MD Hypertension Peripheral neuropathy Thrush, oral UTI (urinary tract infection) LILIAN (acute kidney injury) Amputation of right lower extremity Positive colorectal cancer screening using Cologuard test Asthma Obesities, morbid Therapeutic opioid-induced constipation (OIC) Nausea Epigastric pressure Early satiety Family hx of colon cancer Gastroparesis Hiatal hernia Amputation of right lower extremity below knee Anxiety Other long term care social worker (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 therapy Peripheral polyneuropathy Phantom limb Uncontrolled type 2 diabetes mellitus with hyperglycemia Surgical History Surgical History History of repair of hiatal hernia History of carpal tunnel surgery of left wrist Hx of hysterectomy Family History Family History Mother Diabetes mellitus Heart failure Grandparent Diabetes mellitus Family history of pancreatic cancer Family history of colonic diverticulitis Sibling COPD (chronic obstructive pulmonary disease) Parkinson disease Father Parkinson disease Social History Social History Social History: she currently lives with her . She does not work outside the home. Code status: full code Smoking status: Never smoker Second hand tobacco smoke exposure: No Alcohol intake: never Substance use: never Substance use type: does not use Do You Feel Safe in your Home?: Yes Lack of Transportation: No Lack of Food: Never True Current Housing: I Have Housing Concerned About Future Housing: No Difficulty Paying Gas/Electric Bills: No Difficulty Paying for Meds: No Currently Unemployed: No Education: Trade/Vocational Certificate Difficulty w/ Childcare or Family Care: No Living arrangements: with family Spiritual care concerns: No Exam Const: General: no acute distress and alert Nutritional Appearance: well nourished Orientation/consciousness: patient oriented x3 HENMT: Head: normal to inspection Eyes: Conjunctivae: conjunctivae normal EOM: EOMs intact bilaterally Resp: Effort & Inspection: normal respiratory effort Auscultation: clear to auscultation bilaterally Cardio: Rate: regular rate Rhythm: regular rhythm Heart sounds: no murmurs GI: GI Palp: Yes Soft to palpation, No Tenderness to palpation present (GI), No Guarding due to palpation present (GI) and No Rigid due to palpation Auscultation: normal bowel sounds Skin: General skin exam: normal color Rashes: no rashes Wounds: no wounds Neuro: General: patient oriented x3 and CN's II-XI intact bilaterally Psych: Mental Status: mental status grossly normal Affect: normal affect Attitude: cooperative Course Consultations Consultation #1: I Spoke with Dr. Gore about patient and labs. He request water soluble upper GI. Patient can be admitted to him, NPO on IV fluids. Date: 08/21/25 Time: 09:10 Vital Signs Vital signs: Vital Signs Temperature 97.6 F 08/21/25 07:59 Pulse Rate 69 08/21/25 07:59 Respiratory Rate 16 08/21/25 07:59 Blood Pressure 137/70 08/21/25 07:59 Pulse Oximetry 97 08/21/25 07:59 Oxygen Delivery Room Air 08/21/25 07:59 Temperature 96.1 F L 08/21/25 14:00 Pulse Rate 77 08/21/25 14:00 Respiratory Rate 18 08/21/25 14:00 Blood Pressure 152/78 H 08/21/25 14:00 Pulse Oximetry 93 08/21/25 14:00 Oxygen Delivery Room Air 08/21/25 07:59 MDM - Nausea/Vomiting/Diarrhea Lab Data 08/21/25 08:11 08/21/25 08:11 Labs: Lab Results 08/21/25 08/21/25 Range/Units 08:11 08:29 WBC 5.7 (4.5-10.0) K/mm3 RBC 4.55 (4.2-5.4) M/mm3 Hgb 12.5 (12.0-15.0) g/dL Hct 40.8 (37.0-47.0) % MCV 89.7 (80-100) fl MCH 27.5 (26-34) pg MCHC 30.6 L (32-36) g/dl RDW 15.3 H (11.5-14.5) % Plt Count 406 H D (150-375) k/mm3 MPV 10.1 (7.4-10.4) fl Immature Gran % (Auto) 0.4 (0-0.5) % Neut % (Auto) 54.0 (45.5-73.1) % Lymph % (Auto) 33.6 (18.3-44.2) % [place] % (Auto) 9.0 H (2.6-8.5) % Eos % (Auto) 2.5 (0-4.4) % Baso % (Auto) 0.5 (0.2-1.2) % Lymph # (Auto) 1.91 (0.9-3.2) K/mm3 [place] # (Auto) 0.5 (0.1-0.6) K/mm3 Eos # (Auto) 0.1 (0-0.3) K/mm3 Baso # (Auto) 0.0 (0.0-0.1) K/mm3 Abs Immat Gran (auto) 0.02 (0.00-0.031) K/mm3 Absolute Neuts (auto) 3.1 (1.3-6.7) K/mm3 Absolute Nucleated RBC 0.000 (0.0-0.012) K/mm3 Nucleated RBC % 0.0 (0.0-0.2) % Sodium 139 (137-145) mmol/L Potassium 3.8 (3.4-5.0) mmol/L Chloride 103 (98-107) mmol/L Carbon Dioxide 29 (22-30) mmol/L Anion Gap 7 (4-12) mmol/L BUN 11 (7-17) mg/dL Creatinine 0.82 (0.7-1.0) mg/dL Estim Creat Clear Calc 87 ml/min Estimated GFR > 60 (59 - ) Glucose 194 H (65-110) mg/dL Calcium 9.6 (8.4-10.2) mg/dL Total Bilirubin 0.7 (0.2-1.3) mg/dL AST 29 (14-36) U/L ALT 27 (6-35) U/L Alkaline Phosphatase 93 (38-126) U/L Total Protein 8.2 (6.3-8.2) g/dL Albumin 3.9 (3.5-5.1) g/dL Lipase 31 (23-300) U/L Urine Color Yellow (Yellow) Urine Appearance Cloudy H (Clear) Urine pH 5.5 (5.0-9.0) Ur Specific Phil Campbell 1.028 (1.001-1.035) Urine Protein Trace (Negative) mg/dL Urine Glucose (UA) Negative (Negative) mg/dL Urine Ketones Trace H (Negative) mg/dL Ur Blood (Man) Negative (Negative) Urine Nitrate Positive H (Negative) Urine Bilirubin Negative (Negative) Urine Urobilinogen 1.0 (<2.0) mg/dL Add Ur Microanalysis Reviewed Leukocyte Esterase Rfl 2+ H (Negative) ASTRID/UL Urine RBC 3-5 H (0-2) /hpf Urine WBC 21-50 H (0-3) /hpf Ur Squamous Epith Cells Moderate (Few) /hpf Calcium Oxalate Crystal Present (None) /hpf Urine Bacteria 4+ H /hpf Urine Casts 0-2 Urine Mucus Few H /lpf Discharge Plan Discharge Clinical Impression: History of repair of hiatal hernia Nausea & vomiting Qualifiers: Vomiting type: unspecified Qualified Code(s): R11.2 - Nausea with vomiting, unspecified Patient Disposition: Still a Patient Condition: Stable
[2025-08-21 09:04] LABS: Add Urine Microscopic? YES; Appearance Urine Cloudy (Clear); Glucose Urine UA Negative (Negative); Leukocyte Esterase Ur 2+ LEU/UL (Negative); Need Manual Microscopic Reviewed; Nitrate Urine Positive (Negative); Non Pathogenic Casts 0-2; Specific Grav Ur 1.028 (1.001-1.035)
[2025-08-21] MEDS: ONDANSETRON INJ 4 MG/2 ML VIAL IV PUSH (09:32)
[2025-08-21] MEDS: PANTOPRAZOLE SODIUM IV 40 MG VIAL IV PUSH (09:35)
[2025-08-21] MEDS: LACTATED RINGERS 1,000 ML 125 ML IV CONT (09:39)
--- NOTE | 2025-08-21 09:47 | P.HP_ITS ---
H&P: HPI History of Present Illness Date/Time: 08/21/25 09:47 Chief Complaint: Vomiting Narrative: This is a 64-year-old woman with history of asthma, HTN, type 2 diabetes, obesity, right BKA with chronic neuropathic pain, and recently underwent robotic laparoscopic repair large paraesophageal hiatal hernia with fundoplasty and fundopexy by Dr. Gore on 08/03/25. She did have some regurgitation postop but was able to tolerate full liquids and eventually discharged on postop day 6. She returned for a follow-up visit on 08/17/25 in our office and was having intermittent issues with dysphagia. Dr. Gore had offered to admit her to make her NPO and start steroids for a few days, but she refused at that time. Her symptoms have progressed and she continues to have issues with dysphagia and has been vomiting. She is now having issues with getting liquids or food down, and even reports regurgitating phlegm. She decided to present to the ED today due to her persistent symptoms. Labs were unremarkable. The ED provider contacted Dr. oGre and she is being amitted now for further workup and will be made NPO. Water-soluble esophagram with upper GI has been ordered. Review of Systems Review of Systems: All systems reviewed & are unremarkable except as noted in HPI and below PMFSH Past Medical History Medical History (Updated 08/21/25 @ 10:20 by ANETA Lee) Hx of hiatal hernia S/P ROBO RE PARAESOPHAGEAL 08/03 DR. 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 Peripheral polyneuropathy Phantom limb Uncontrolled type 2 diabetes mellitus with hyperglycemia Surgical History Surgical History (Updated 08/21/25 @ 10:17 by ANETA Lee) History of repair of hiatal hernia History of carpal tunnel surgery of left wrist Hx of hysterectomy Family History Family History Mother Diabetes mellitus Heart failure Grandparent Diabetes mellitus Family history of pancreatic cancer Family history of colonic diverticulitis Sibling COPD (chronic obstructive pulmonary disease) Parkinson disease Father Parkinson disease Social History Social History Social History: she currently lives with her . She does not work outside the home. Code status: full code Smoking status: Never smoker Second hand tobacco smoke exposure: No Alcohol intake: never Substance use: never Substance use type: does not use Do You Feel Safe in your Home?: Yes Lack of Transportation: No Lack of Food: Never True Current Housing: I Have Housing Concerned About Future Housing: No Difficulty Paying Gas/Electric Bills: No Difficulty Paying for Meds: No Currently Unemployed: No Education: Trade/Vocational Certificate Difficulty w/ Childcare or Family Care: No Living arrangements: with family Spiritual care concerns: No Meds Home Medications and Allergies Home Medications ?Medication ?Instructions ?Recorded ?Confirmed ?Type blood-glucose meter (CareTouch #1 ea 11/26/21 08/21/25 Rx Glucose Monitoring System kit) magnesium 250 mg tablet 250 mg PO DAILY 02/02/23 History pen needle, diabetic 31 gauge x #100 ea 08/31/2408/21 Rx 3/16 (BD Ultra-Fine Mini Pen Needle) hyoscyamine sulfate 0.125 mg tablet 0.125 mg sublingua l Q6-8H PRN 09/30/24 08/21/25 Rx dyspepsia #120 tabs ibuprofen 800 mg tablet See Rx Instructions .Route 0 01/10/25 08/21/25 Rx .COMPLEX #270 tabs naloxone 4 mg/actuation nasal 4 mg intranasal Q2-3M NM N opioid 03/06/25 08/21/25 Rx spray (Narcan) overdose #2 ea empagliflozin 25 mg tablet See Rx Instructions .Route 03/20/25 08/21/25 Rx (Jardiance) .COMPLEX #90 tabs ferrous sulfate 325 mg (65 mg See Rx Instructions .Rou te 03/20/25 08/21/25 Rx iron) tablet,delayed release .COMPLEX #90 tabs rosuvastatin 5 mg tablet See Rx Instructions .Route 0 03/20/25 08/21/25 Rx .COMPLEX #90 tabs polyethylene glycol 3350 17 17 g PO DAILY PRN Constipa tion 03/27/25 08/21/25 Rx gram/dose oral powder (Miralax) #510 grams famotidine 20 mg tablet See Rx Instructions .Route 0 04/04/25 08/21/25 Rx .COMPLEX #90 tabs loratadine 10 mg tablet (Claritin) 10 mg PO DAILY #30 tabs 04/19/25 08/21/25 Rx ondansetron 4 mg disintegrating See Rx Instructions .R oute 05/04/25 08/21/25 Rx tablet .COMPLEX #20 tabs omeprazole 40 mg capsule,delayed See Rx Instructions . Route 06/13/25 08/21/25 Rx release .COMPLEX #90 caps blood-glucose meter #1 ea 07/05/25 08/21/25 Rx gabapentin 600 mg tablet See Rx Instructions .Route 0 07/05/25 08/21/25 Rx .COMPLEX #180 tabs blood sugar diagnostic (CareTouch #300 ea 07/06/25 Rx Test Strip) lancets 33 gauge (CareTouch Twist #300 ea 07/06/25 Rx Lancet) insulin glargine 100 unit/mL (3 See Rx Instructions hi bcut .COMPLEX 07/10/25 08/21/25 History mL) subcutaneous pen (Lantus Solostar U-100 Insulin) albuterol sulfate 90 mcg/actuation 2 puff inhalation Q 6-8H PRN 07/14/25 08/21/25 History aerosol inhaler shortness of breath or wheez ing alprazolam 0.5 mg tablet 0.5 mg PO TID PRN anxiety #9 0 tabs 07/24/25 08/21/25 Rx nystatin 100,000 unit/mL oral See Rx Instructions .Rou te 08/01/25 08/21/25 Rx suspension .COMPLEX #500 mL hydrocodone 10 mg-acetaminophen 1.5 tablet PO Q8H PRN post op pain 08/09/25 08/21/25 Rx 325 mg tablet #63 tabs azelastine 137 mcg (0.1 %) nasal 1 spray intranasal Q1 2H PRN 08/21/25 08/21/25 History spray allergies Allergies Allergy/AdvReac Type Severity Reaction Status Date / Time bisacodyl (From Dulcolax Allergy Mild Swelling Verified 08/21/25 08:04 (bisacodyl)) amoxicillin Allergy Unknown Unknown Verified 08/21/25 08:04 nitrofurantoin Allergy Unknown Unknown Verified 08/21/25 08:04 Sulfa (Sulfonamide Allergy Unknown Unknown Verified 08/21/25 08:04 Antibiotics) ciprofloxacin Allergy Swelling Verified 08/21/25 08:04 of Lip/Tongue/Throat tirzepatide (From Mounjaro) AdvReac Intermediate Other Verified 08/21/25 08:04 codeine AdvReac Unknown Hallucinati Verified 08/21/25 09:23 ng metformin AdvReac cramping, Verified 08/21/25 08:04 nausea, abdominal pain morphine AdvReac Anxiety Verified 08/21/25 08:04 spironolactone AdvReac hypercalcem Verified 08/21/25 08:04 ia warfarin (From Coumadin) AdvReac hemorrage Verified 08/21/25 08:04 Vital Signs Vital Signs - 24 hr 08/21/25 07:59 08/21/25 09:03 08/21/25 09:03 Temperature 97.6 F Pulse Rate 69 68 78 Respiratory Rate 16 15 Blood Pressure 137/70 141/74 H 137/81 Pulse Oximetry 97 100 Oxygen Delivery Room Air 08/21/25 09:03 08/21/25 09:03 08/21/25 09:40 Temperature 97.8 F Pulse Rate 74 75 71 Respiratory Rate 16 Blood Pressure 146/77 H 132/94 H 145/79 H Pulse Oximetry 95 Oxygen Delivery Exam Const: General: comfortable and no acute distress Nutritional Appearance: obese Orientation/consciousness: patient oriented x3 HENMT: Head: normocephalic and atraumatic Ears: hearing grossly normal bilaterally Mouth: Yes moist mucous membranes Eyes: General: appearance normal, both eyes and all related structures Pupils: Equal, round and reactive pupils present Neck: Neck: normal visual inspection and full ROM Resp: Effort & Inspection: no respiratory distress Auscultation: clear to auscultation bilaterally Cardio: Rate: regular rate Rhythm: regular rhythm Peripheral pulses: Peripheral pulses 2+ throughout GI: Inspection: non-distended and incision (Dry and healing well) GI Palp: Yes Soft to palpation, No Tenderness to palpation present (GI), No Guarding due to palpation present (GI) and No Rebound tenderness present Percussion: Yes normal to percussion Auscultation: normal bowel sounds Skin: General skin exam: normal color Neuro: General: moves all extremities and no focal motor deficits Speech: normal speech Motor exam (neuro): 5/5 motor strength present throughout Extrem: General: normal to inspection and no edema Psych: Mental Status: mental status grossly normal Attitude: cooperative Insight: Good insight present (Psych) Judgement: Good judgement present (Psych) H&P: Results Labs Labs: Short CBC 08/21/25 Range/Units 08:11 WBC 5.7 (4.5-10.0) K/mm3 Hgb 12.5 (12.0-15.0) g/dL Hct 40.8 (37.0-47.0) % Plt Count 406 H D (150-375) k/mm3 BMP 08/21/25 08:11 Sodium 139 Potassium 3.8 Chloride 103 Carbon Dioxide 29 BUN 11 Creatinine 0.82 Glucose 194 H Calcium 9.6 Liver Function 08/21/25 Range/Units 08:11 Total Bilirubin 0.7 (0.2-1.3) mg/dL AST 29 (14-36) U/L ALT 27 (6-35) U/L Alkaline Phosphatase 93 (38-126) U/L Albumin 3.9 (3.5-5.1) g/dL Urine 08/21/25 Range/Units 08:29 Urine Color Yellow (Yellow) Urine Appearance Cloudy H (Clear) Urine pH 5.5 (5.0-9.0) Ur Specific [place] 1.028 (1.001-1.035) Urine Protein Trace (Negative) mg/dL Urine Glucose (UA) Negative (Negative) mg/dL Assessment and Plan Assessment and plan (1) Vomiting: Qualifiers: Nausea presence: without nausea Vomiting type: unspecified Qualified Code(s): R11.11 - Vomiting without nausea Code(s): R11.10 - Vomiting, unspecified Status: Acute Assessment and Plan: * The patient is 2.5 weeks postop following a robotic laparoscopic repair large paresophageal hiatal hernia by Dr. Gore. She has had intermittent issues with dysphagia and regurgitation that has progressed. This is likely related to inflammation from her recent surgery with narrowing at the distal esophagus causing her symptoms. Her labs in the ER were unremarkable. We have ordered a water soluble esophagram with upper GI to further evaluate. We will start IV Solucortef 150 mg Q8H IV to reduce the inflammation. Will keep her NPO except sips with meds. She chronically takes Victoria 10-325 mg tablet Q8H for her neuropathic pain following a right BKA. We will switch her pain medication to the elixir oxycodone and Tylenol for now. Labs will be repeated for the morning. Will order prophylactic-dosed Lovenox while admitted. (2) History of repair of hiatal hernia: Code(s): Z98.890 - Other specified postprocedural states; Z87.19 - Personal history of other diseases of the digestive system Status: Resolved Assessment and Plan: * Robotic laparoscopic repair large paraesophageal hiatal hernia by Dr. Gore on 08/03/2025 (3) Diabetes: Qualifiers: Diabetes mellitus complication status: without complication Diabetes mellitus senior living insulin use: with remote computer terminal operator use Diabetes mellitus type: type 2 Qualified Code(s): E11.9 - Type 2 diabetes mellitus without complications; Z79.4 - remote computer terminal operator (current) use of insulin Code(s): E11.9 - Type 2 diabetes mellitus without complications Status: Chronic Assessment and Plan: * Will consult the hospitalist for medical management. Appreciate their help. (4) Hx of right BKA: Code(s): Z89.511 - Acquired absence of right leg below knee Status: Chronic (5) Chronic narcotic dependence: Code(s): F11.20 - Opioid dependence, uncomplicated Status: Chronic Assessment and Plan: * Will switch her Victoria to oxycodone and Tylenol elixer (6) Asthma: Qualifiers: Asthma complication type: unspecified Asthma persistence: persistent Asthma severity: moderate Qualified Code(s): J45.40 - Moderate persistent asthma, uncomplicated Code(s): J45.909 - Unspecified asthma, uncomplicated Status: Chronic Plan I have discussed the patient's case and plan of care with Dr. Gore. Quality VTE Prophylaxis VTE prophylaxis: pharmacologic ordered
--- NOTE | 2025-08-21 11:19 | ADMGEN ---
This patient, Marge Alarcon, was admitted to Medical Room 346-01. Patient/family oriented to hospital policies and general routines including ID bracelet, bed and alarms, visiting hours, pain management, procedures, bathroom and other care routines, personal items, smoking policy, room service/diet, and visiting hours. Information on how to activate the Rapid Response Team has been discussed. Patient/Family are encouraged to report perceived risks to care and to ask questions if they do not understand what they are told or what they should do.
[2025-08-21] MEDS: GABAPENTIN 400 MG CAPSULE 1200 MG BY MOUTH ×2 (12:30→18:08)
[2025-08-21] MEDS: ENOXAPARIN 40 MG/0.4 ML SYRINGE SUB-Q (12:31)
[2025-08-21] MEDS: PROCHLORPERAZINE EDISYLATE 10 MG/2 ML VIAL IV PUSH (12:31)
[2025-08-21] MEDS: HYDROCORTISONE SODIUM SUCCINATE 100 MG/2 ML VIAL 150 MG IV PUSH ×2 (13:10→22:02)
[2025-08-21] MEDS: NYSTATIN 100,000 UNITS/ML SUSP 5 ML ORAL.SUSP PO ×3 (13:11→22:02)
[2025-08-21] MEDS: KCL 20MEQ/0.9% SOD CHL 1,000 ML 100 ML IV CONT ×2 (13:11→22:14)
--- NOTE | 2025-08-21 13:24 | P.CONIM_ITS ---
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 of insulin Code(s): E11.9 - Type 2 diabetes mellitus without complications Status: Chronic (2) History of repair of hiatal hernia: Code(s): Z98.890 - Other specified postprocedural states; Z87.19 - Personal history of other diseases of the digestive system Status: Resolved (3) Dysphagia: Qualifiers: Dysphagia type: esophageal phase Qualified Code(s): R13.19 - Other dysphagia Code(s): R13.10 - Dysphagia, unspecified Status: Chronic (4) Nausea: Code(s): R11.0 - Nausea Status: Acute (5) Vomiting: Qualifiers: Vomiting type: unspecified Nausea presence: without nausea Qualified Code(s): R11.11 - Vomiting without nausea Code(s): R11.10 - Vomiting, unspecified Status: Acute Plan 64 year old female with history of asthma, HTN, type 2 diabetes, obesity, right BKA with chronic neuropathic pain, and recently underwent robotic laparoscopic repair large paraesophageal hiatal hernia with fundoplasty and fundopexy by Dr. Hernandez on 08/03/25, presenting with worsening nausea, vomiting. 1. Status post robotic laparoscopic repair of large paraesophageal hiatal hernia: Postoperative nausea, vomiting/dysphagia Management as per primary team Plan for water-soluble esophagogram with upper GI Or NPO Has been started on steroid Pain control IV fluids Zofran p.r.n. Labs in a.m. 2. Diabetes mellitus: Blood glucose check q.6 hours Continue with high-dose sliding scale insulin Will start on lower dose of Lantus as compared to her normal dose given her NPO status 3. Possible UTI: Will start on ceftriaxone Follow-up urine culture 4. Code status: Full 5. DVT prophylaxis: Lovenox 6. Disposition: Per primary team HPI Date of Consult Consult date: 08/21/25 Requesting Physician: Patricia Hernandez MD Primary Care Provider: Lakshmi Ramos APRN Consult Narrative Reason for consult: medical management Narrative: 64 year old female with history of asthma, HTN, type 2 diabetes, obesity, right BKA with chronic neuropathic pain, and recently underwent robotic laparoscopic repair large paraesophageal hiatal hernia with fundoplasty and fundopexy by Dr. Hernandez on 08/03/25.She was able to tolerate full liquids and eventually discharged on postop day 6. She had follow-up visit on 08/17/25 with surgery and was having intermittent dysphagia. She was advised admission to be NPO and treated with steroids for few days but she refused at that time. Her symptoms continued to worsen, unable to keep anything down with vomiting. Presented to the ER. Admitted under surgery Service, hospitalist team was consulted for medical management. Review of Systems 2 Review of Systems: All systems reviewed & are unremarkable except as noted in HPI and below PMFSH Past Medical History Medical History Hx of hiatal hernia S/P ROBO RE PARAESOPHAGEAL 08/03 DR. 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 She does not work outside the home. Code status: full code Smoking status: Never smoker Second hand tobacco smoke exposure: No Alcohol intake: never Substance use: never Substance use type: does not use Do You Feel Safe in your Home?: Yes Lack of Transportation: No Lack of Food: Never True Current Housing: I Have Housing Concerned About Future Housing: No Difficulty Paying Gas/Electric Bills: No Difficulty Paying for Meds: No Currently Unemployed: No Education: Trade/Vocational Certificate Difficulty w/ Childcare or Family Care: No Living arrangements: with family Spiritual care concerns: No Meds Home Medications and Allergies Home Medications ?Medication ?Instructions ?Recorded ?Confirmed ?Type blood-glucose meter (CareTouch #1 ea 11/26/21 08/21/25 Rx Glucose Monitoring System kit) magnesium 250 mg tablet 250 mg PO DAILY 02/02/23 History pen needle, diabetic 31 gauge x #100 ea 08/31/2408/21 Rx 3/16 (BD Ultra-Fine Mini Pen Needle) hyoscyamine sulfate 0.125 mg tablet 0.125 mg sublingua l Q6-8H PRN 09/30/24 08/21/25 Rx dyspepsia #120 tabs ibuprofen 800 mg tablet See Rx Instructions .Route 0 01/10/25 08/21/25 Rx .COMPLEX #270 tabs naloxone 4 mg/actuation nasal 4 mg intranasal Q2-3M SD N opioid 03/06/25 08/21/25 Rx spray (Narcan) overdose #2 ea empagliflozin 25 mg tablet See Rx Instructions .Route 03/20/25 08/21/25 Rx (Jardiance) .COMPLEX #90 tabs ferrous sulfate 325 mg (65 mg See Rx Instructions .Rou te 03/20/25 08/21/25 Rx iron) tablet,delayed release .COMPLEX #90 tabs rosuvastatin 5 mg tablet See Rx Instructions .Route 0 03/20/25 08/21/25 Rx .COMPLEX #90 tabs polyethylene glycol 3350 17 17 g PO DAILY PRN Constipa tion 03/27/25 08/21/25 Rx gram/dose oral powder (Miralax) #510 grams famotidine 20 mg tablet See Rx Instructions .Route 0 04/04/25 08/21/25 Rx .COMPLEX #90 tabs loratadine 10 mg tablet (Claritin) 10 mg PO DAILY #30 tabs 04/19/25 08/21/25 Rx ondansetron 4 mg disintegrating See Rx Instructions .R oute 05/04/25 08/21/25 Rx tablet .COMPLEX #20 tabs omeprazole 40 mg capsule,delayed See Rx Instructions . Route 06/13/25 08/21/25 Rx release .COMPLEX #90 caps blood-glucose meter #1 ea 07/05/25 08/21/25 Rx gabapentin 600 mg tablet See Rx Instructions .Route 0 07/05/25 08/21/25 Rx .COMPLEX #180 tabs blood sugar diagnostic (CareTouch #300 ea 07/06/25 Rx Test Strip) lancets 33 gauge (CareTouch Twist #300 ea 07/06/25 Rx Lancet) insulin glargine 100 unit/mL (3 See Rx Instructions hi bcut .COMPLEX 07/10/25 08/21/25 History mL) subcutaneous pen (Lantus Solostar U-100 Insulin) albuterol sulfate 90 mcg/actuation 2 puff inhalation Q 6-8H PRN 07/14/25 08/21/25 History aerosol inhaler shortness of breath or wheez ing alprazolam 0.5 mg tablet 0.5 mg PO TID PRN anxiety #9 0 tabs 07/24/25 08/21/25 Rx nystatin 100,000 unit/mL oral See Rx Instructions .Rou te 08/01/25 08/21/25 Rx suspension .COMPLEX #500 mL hydrocodone 10 mg-acetaminophen 1.5 tablet PO Q8H PRN post op pain 08/09/25 08/21/25 Rx 325 mg tablet #63 tabs azelastine 137 mcg (0.1 %) nasal 1 spray intranasal Q1 2H PRN 08/21/25 08/21/25 History spray allergies Allergies Allergy/AdvReac Type Severity Reaction Status Date / Time bisacodyl (From Dulcolax Allergy Mild Swelling Verified 08/21/25 08:04 (bisacodyl)) amoxicillin Allergy Unknown Unknown Verified 08/21/25 08:04 nitrofurantoin Allergy Unknown Unknown Verified 08/21/25 08:04 Sulfa (Sulfonamide Allergy Unknown Unknown Verified 08/21/25 08:04 Antibiotics) ciprofloxacin Allergy Swelling Verified 08/21/25 08:04 of Lip/Tongue/Throat tirzepatide (From Mounjaro) AdvReac Intermediate Other Verified 08/21/25 08:04 codeine AdvReac Unknown Hallucinati Verified 08/21/25 09:23 ng metformin AdvReac cramping, Verified 08/21/25 08:04 nausea, abdominal pain morphine AdvReac Anxiety Verified 08/21/25 08:04 spironolactone AdvReac hypercalcem Verified 08/21/25 08:04 ia warfarin (From Coumadin) AdvReac hemorrage Verified 08/21/25 08:04 Vital Signs Vital Signs - 24 hr 08/21/25 07:59 08/21/25 09:03 08/21/25 09:03 Temperature 97.6 F Pulse Rate 69 68 78 Respiratory Rate 16 15 Blood Pressure 137/70 141/74 H 137/81 Pulse Oximetry 97 100 Oxygen Delivery Room Air 08/21/25 09:03 08/21/25 09:03 08/21/25 09:40 Temperature 97.8 F Pulse Rate 74 75 71 Respiratory Rate 16 Blood Pressure 146/77 H 132/94 H 145/79 H Pulse Oximetry 95 Oxygen Delivery Exam 2 Narrative: No acute distress Const: General: no acute distress HENMT: Mouth: Yes dry mucous membranes Eyes: Sclera: sclerae normal Pupils: Equal, round and reactive pupils present Neck: Neck: supple Resp: Auscultation: clear to auscultation bilaterally Cardio: Rate: regular rate Rhythm: regular rhythm GI: GI Palp: Yes Soft to palpation and Yes Tenderness to palpation present (GI) Auscultation: normal bowel sounds Other: Epigastric tenderness present Skin: General skin exam: normal color Neuro: Speech: normal speech Extrem: Other: Right BKA Psych: Mental Status: mental status grossly normal Results Labs 08/21/25 08:11 08/21/25 08:11 Labs: Short CBC 08/21/25 Range/Units 08:11 WBC 5.7 (4.5-10.0) K/mm3 Hgb 12.5 (12.0-15.0) g/dL Hct 40.8 (37.0-47.0) % Plt Count 406 H D (150-375) k/mm3 BMP 08/21/25 08:11 Sodium 139 Potassium 3.8 Chloride 103 Carbon Dioxide 29 BUN 11 Creatinine 0.82 Glucose 194 H Calcium 9.6 Liver Function 08/21/25 Range/Units 08:11 Total Bilirubin 0.7 (0.2-1.3) mg/dL AST 29 (14-36) U/L ALT 27 (6-35) U/L Alkaline Phosphatase 93 (38-126) U/L Albumin 3.9 (3.5-5.1) g/dL Urine 08/21/25 Range/Units 08:29 Urine Color Yellow (Yellow) Urine Appearance Cloudy H (Clear) Urine pH 5.5 (5.0-9.0) Ur Specific [place] 1.028 (1.001-1.035) Urine Protein Trace (Negative) mg/dL Urine Glucose (UA) Negative (Negative) mg/dL Quality VTE Prophylaxis VTE prophylaxis: pharmacologic ordered Hospitalist MIPS Advance Care Plan I have confirmed that the patient's Advanced Care Plan is present, code status is documented, or surrogate decision maker is listed in patient medical record.: Yes Medication Reconciliation I have utilized all available resources to obtain, update and review the patients current medications (includes all prescriptions, OTC, herbals, cannabis, and nutritional supplements).: Yes
[2025-08-21] MEDS: oxyCODONE (*CRX) 5 MG/5 ML ORAL SOLN IR 15 MG PO (13:56)
[2025-08-21] MEDS: cefTRIAXone 1 GM in SODIUM CHLORIDE 0.9% IV 50 ML 100 ML IVPB (14:25)
[2025-08-21] MEDS: INSULIN GLARGINE (*BKC) 100 UNITS/ML 8 UNITS SUB-Q (14:26)
[2025-08-21] MEDS: INSULIN ASPART (*BKC) 100 UNITS/ML SUB-Q (18:06)
[2025-08-22] MEDS: oxyCODONE (*CRX) 5 MG/5 ML ORAL SOLN IR 15 MG PO ×2 (02:11→11:10)
[2025-08-22 05:56] VITALS: BP 135/88; PULSE 73; RESP 20; TEMP 36.5; O2SAT 93
[2025-08-22 06:01] LABS: Hematocrit 37.7 % (37.0-47.0); Hemoglobin 11.6 g/dL (12.0-15.0); Mean Corpuscular HGB Conc 30.8 g/dl (32-36); Mean Corpuscular Hemoglobin 27.5 pg (26-34); Mean Corpuscular Volume 89.3 fl (80-100); Platelet Count Result 361 k/mm3 (150-375); Red Blood Count 4.22 M/mm3 (4.2-5.4); White Blood Count 6.8 K/mm3 (4.5-10.0)
[2025-08-22 06:05] LABS: Anion Gap 6 mmol/L (4-12); Blood Urea Nitrogen 12 mg/dL (7-17); Calcium 9.0 mg/dL (8.4-10.2); Carbon Dioxide 24 mmol/L (22-30); Chloride 107 mmol/L (98-107); Estimated CRCL calculation 98 ml/min; Estimated Glomerular Filt Rate > 60; Glucose 206 mg/dL (65-110); Potassium 4.4 mmol/L (3.4-5.0); Sodium 137 mmol/L (137-145)
[2025-08-22] MEDS: HYDROCORTISONE SODIUM SUCCINATE 100 MG/2 ML VIAL 150 MG IV PUSH ×3 (06:15→22:07)
[2025-08-22 08:00] VITALS: PULSE 73; RESP 20; O2SAT 93
--- NOTE | 2025-08-22 08:10 | PM.IMCN ---
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 tech use Diabetes mellitus type: type 2 Qualified Code(s): E11.9 - Type 2 diabetes mellitus without complications; Z79.4 - research program coordinator (current) use of insulin Code(s): E11.9 - Type 2 diabetes mellitus without complications Status: Chronic (2) History of repair of hiatal hernia: Code(s): Z98.890 - Other specified postprocedural states; Z87.19 - Personal history of other diseases of the digestive system Status: Resolved (3) Dysphagia: Qualifiers: Dysphagia type: esophageal phase Qualified Code(s): R13.19 - Other dysphagia Code(s): R13.10 - Dysphagia, unspecified Status: Chronic (4) Nausea: Code(s): R11.0 - Nausea Status: Acute (5) Vomiting: Qualifiers: Nausea presence: without nausea Vomiting type: unspecified Qualified Code(s): R11.11 - Vomiting without nausea Code(s): R11.10 - Vomiting, unspecified Status: Acute Plan 64 year old female with history of asthma, HTN, type 2 diabetes, obesity, right BKA with chronic neuropathic pain, and recently underwent robotic laparoscopic repair large paraesophageal hiatal hernia with fundoplasty and fundopexy by Dr. Hernandez on 08/03/25, presenting with worsening nausea, vomiting. 1. Status post robotic laparoscopic repair of large paraesophageal hiatal hernia: - Postoperative nausea, vomiting/dysphagia - Management as per primary team - Upper GI series: Stenosis with delayed passage of contrast at the gastroesophageal junction likely related to a patient reported recent Sera fundoplication with lumen measuring up to 2.5 mm in maximal diameter and with pooling of contrast the more proximal mid to distal esophagus. - Abd/Pelvis CT: 1. Postoperative change of interval hiatal hernia repair with likely Sera fundoplication. There is an 8.9 x 6.5 cm likely complex fluid collection in the inferior mediastinum the left of the esophagus in the region of the previously herniated stomach most likely representing a postoperative hematoma. Differential would include abscess although there is no surrounding inflammatory stranding to more specifically suggest this. 2. Indeterminate 1.5 similar hyperdense lesion at the dome of liver in the region of peripheral wedge-shaped region of decreased hepatic attenuation suggests scarring related to an indeterminate insult. Correlate with clinical history and consider further evaluation with or multiphase pre and postcontrast MRI. 3. Cholelithiasis. - Per Surgery: NPO for today and tomorrow, start thin liquids - Has been started on steroid - Pain control - IV fluids - Zofran p.r.n. - Labs in a.m. 2. Diabetes mellitus: Blood glucose check q.6 hours Continue with high-dose sliding scale insulin Will start on lower dose of Lantus as compared to her normal dose given her NPO status 3. Possible UTI: Will start on ceftriaxone Follow-up urine culture 4. Code status: Full 5. DVT prophylaxis: Lovenox 6. Disposition: Per primary team HPI Date of Consult Consult date: 08/22/25 Requesting Physician: Blake Hernandez MD Primary Care Provider: Lakshmi Ramos APRN Consult Narrative Narrative: Marge Alarcon is a 64 year old female with history of asthma, HTN, type 2 diabetes, obesity, right BKA with chronic neuropathic pain, and recently underwent robotic laparoscopic repair large paraesophageal hiatal hernia with fundoplasty and fundopexy by Dr. Hernandez on 08/03/25, presenting with worsening nausea, vomiting. Per general surgery - plan to keep pt NPO today and tomorrow while starting thin liquids and advancing as tolerated on (08/24). Pt otherwise feeling okay this morning, however does have some generalized abdominal discomfort but states it feels better than yesterday, denies any chest pain, SOB, or nausea at this time. Review of Systems Review of Systems: All systems reviewed & are unremarkable except as noted in HPI and below PMFSH Past Medical History Medical History Hx of hiatal hernia S/P ROBO RE PARAESOPHAGEAL 08/03 DR. BLAKE HERNANDEZ MD Hypertension Peripheral neuropathy Thrush, oral UTI (urinary tract infection) LILIAN (acute kidney injury) Amputation of right lower extremity Positive colorectal cancer screening using Cologuard test Asthma Obesities, morbid Therapeutic opioid-induced constipation (OIC) Nausea Epigastric pressure Early satiety Family hx of colon cancer Gastroparesis Hiatal hernia Amputation of right lower extremity below knee Anxiety Other senior living (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 therapy Peripheral polyneuropathy Phantom limb Uncontrolled type 2 diabetes mellitus with hyperglycemia Surgical History Surgical History History of repair of hiatal hernia History of carpal tunnel surgery of left wrist Hx of hysterectomy Family History Family History Mother Diabetes mellitus Heart failure Grandparent Diabetes mellitus Family history of pancreatic cancer Family history of colonic diverticulitis Sibling COPD (chronic obstructive pulmonary disease) Parkinson disease Father Parkinson disease Social History Social History Social History: she currently lives with her . She does not work outside the home. Code status: full code Smoking status: Never smoker Second hand tobacco smoke exposure: No Alcohol intake: never Substance use: never Substance use type: does not use Do You Feel Safe in your Home?: Yes Lack of Transportation: No Lack of Food: Never True Current Housing: I Have Housing Concerned About Future Housing: No Difficulty Paying Gas/Electric Bills: No Difficulty Paying for Meds: No Currently Unemployed: No Education: Trade/Vocational Certificate Difficulty w/ Childcare or Family Care: No Living arrangements: with family Spiritual care concerns: No Meds Home Medications and Allergies Home Medications ?Medication ?Instructions ?Recorded ?Confirmed ?Type blood-glucose meter (CareTouch #1 ea 11/26/21 08/21/25 Rx Glucose Monitoring System kit) magnesium 250 mg tablet 250 mg PO DAILY 02/02/23 08/21/25 History pen needle, diabetic 31 gauge x #100 ea 08/31/24 08/21/25 Rx 3/16 (BD Ultra-Fine Mini Pen Needle) hyoscyamine sulfate 0.125 mg tablet 0.125 mg sublingual Q6-8H PRN 09/30/24 08/21/25 Rx dyspepsia #120 tabs ibuprofen 800 mg tablet See Rx Instructions .Route 01/10/25 08/21/25 Rx .COMPLEX #270 tabs naloxone 4 mg/actuation nasal 4 mg intranasal Q2-3M PRN opioid 03/06/25 08/21/25 Rx spray (Narcan) overdose #2 ea empagliflozin 25 mg tablet See Rx Instructions .Route 03/20/25 08/21/25 Rx (Jardiance) .COMPLEX #90 tabs ferrous sulfate 325 mg (65 mg See Rx Instructions .Route 03/20/25 08/21/25 Rx iron) tablet,delayed release .COMPLEX #90 tabs rosuvastatin 5 mg tablet See Rx Instructions .Route 03/20/25 08/21/25 Rx .COMPLEX #90 tabs polyethylene glycol 3350 17 17 g PO DAILY PRN Constipation 03/27/25 08/21/25 Rx gram/dose oral powder (Miralax) #510 grams famotidine 20 mg tablet See Rx Instructions .Route 04/04/25 08/21/25 Rx .COMPLEX #90 tabs loratadine 10 mg tablet (Claritin) 10 mg PO DAILY #30 tabs 04/19/25 08/21/25 Rx ondansetron 4 mg disintegrating See Rx Instructions .Route 05/04/25 08/21/25 Rx tablet .COMPLEX #20 tabs omeprazole 40 mg capsule,delayed See Rx Instructions .Route 06/13/25 08/21/25 Rx release .COMPLEX #90 caps blood-glucose meter #1 ea 07/05/25 08/21/25 Rx gabapentin 600 mg tablet See Rx Instructions .Route 07/05/25 08/21/25 Rx .COMPLEX #180 tabs blood sugar diagnostic (CareTouch #300 ea 07/06/25 08/21/25 Rx Test Strip) lancets 33 gauge (CareTouch Twist #300 ea 07/06/25 08/21/25 Rx Lancet) insulin glargine 100 unit/mL (3 See Rx Instructions subcut .COMPLEX 07/10/25 08/21/25 History mL) subcutaneous pen (Lantus Solostar U-100 Insulin) albuterol sulfate 90 mcg/actuation 2 puff inhalation Q6-8H PRN 07/14/25 08/21/25 History aerosol inhaler shortness of breath or wheezing alprazolam 0.5 mg tablet 0.5 mg PO TID PRN anxiety #90 tabs 07/24/25 08/21/25 Rx nystatin 100,000 unit/mL oral See Rx Instructions .Route 08/01/25 08/21/25 Rx suspension .COMPLEX #500 mL hydrocodone 10 mg-acetaminophen 1.5 tablet PO Q8H PRN post op pain 08/09/25 08/21/25 Rx 325 mg tablet #63 tabs azelastine 137 mcg (0.1 %) nasal 1 spray intranasal Q12H PRN 08/21/25 08/21/25 History spray allergies Allergies Allergy/AdvReac Type Severity Reaction Status Date / Time bisacodyl (From Dulcolax Allergy Mild Swelling Verified 08/21/25 08:04 (bisacodyl)) amoxicillin Allergy Unknown Unknown Verified 08/21/25 08:04 nitrofurantoin Allergy Unknown Unknown Verified 08/21/25 08:04 Sulfa (Sulfonamide Allergy Unknown Unknown Verified 08/21/25 08:04 Antibiotics) ciprofloxacin Allergy Swelling Verified 08/21/25 08:04 of Lip/Tongue/Throat tirzepatide (From Mounjaro) AdvReac Intermediate Other Verified 08/21/25 08:04 codeine AdvReac Unknown Hallucinati Verified 08/21/25 09:23 ng metformin AdvReac cramping, Verified 08/21/25 08:04 nausea, abdominal pain morphine AdvReac Anxiety Verified 08/21/25 08:04 spironolactone AdvReac hypercalcem Verified 08/21/25 08:04 ia warfarin (From Coumadin) AdvReac hemorrage Verified 08/21/25 08:04 Vital Signs Vital Signs - 24 hr 08/21/25 09:03 08/21/25 09:03 08/21/25 09:03 Temperature Pulse Rate 68 78 74 Respiratory Rate 15 Blood Pressure 141/74 H 137/81 146/77 H Pulse Oximetry 100 Oxygen Delivery Fraction of Inspired Oxygen 08/21/25 09:03 08/21/25 09:40 08/21/25 12:04 Temperature 97.8 F Pulse Rate 75 71 77 Respiratory Rate 16 18 Blood Pressure 132/94 H 145/79 H Pulse Oximetry 95 93 Oxygen Delivery Room Air Fraction of Inspired Oxygen 08/21/25 14:00 08/21/25 21:17 08/21/25 21:25 Temperature 96.1 F L 98.1 F Pulse Rate 77 76 76 Respiratory Rate 18 12 Blood Pressure 152/78 H 136/70 Pulse Oximetry 93 97 96 Oxygen Delivery Room Air Fraction of Inspired Oxygen 21 08/22/25 05:56 Temperature 97.7 F Pulse Rate 73 Respiratory Rate 20 Blood Pressure 135/88 Pulse Oximetry 93 Oxygen Delivery Fraction of Inspired Oxygen Exam Narrative: No acute distress Const: General: no acute distress HENMT: Mouth: Yes dry mucous membranes Eyes: Sclera: sclerae normal Pupils: Equal, round and reactive pupils present Neck: Neck: supple Resp: Auscultation: clear to auscultation bilaterally Cardio: Rate: regular rate Rhythm: regular rhythm GI: Auscultation: normal bowel sounds Other: Epigastric tenderness present Skin: General skin exam: normal color Neuro: Cranial nerves: Yes Equal, round and reactive pupils present Speech: normal speech Extrem: Other: Right BKA Psych: Mental Status: mental status grossly normal Results Labs 08/22/25 05:26 08/22/25 05:26 Labs: Short CBC 08/21/25 08/22/25 Range/Units 08:11 05:26 WBC 5.7 6.8 (4.5-10.0) K/mm3 Hgb 12.5 11.6 L (12.0-15.0) g/dL Hct 40.8 37.7 (37.0-47.0) % Plt Count 406 H D 361 (150-375) k/mm3 BMP 08/21/25 08/22/25 08:11 05:26 Sodium 139 137 Potassium 3.8 4.4 Chloride 103 107 Carbon Dioxide 29 24 BUN 11 12 Creatinine 0.82 0.72 Glucose 194 H 206 H Calcium 9.6 9.0 Liver Function 08/21/25 Range/Units 08:11 Total Bilirubin 0.7 (0.2-1.3) mg/dL AST 29 (14-36) U/L ALT 27 (6-35) U/L Alkaline Phosphatase 93 (38-126) U/L Albumin 3.9 (3.5-5.1) g/dL Urine 08/21/25 Range/Units 08:29 Urine Color Yellow (Yellow) Urine Appearance Cloudy H (Clear) Urine pH 5.5 (5.0-9.0) Ur Specific Ione 1.028 (1.001-1.035) Urine Protein Trace (Negative) mg/dL Urine Glucose (UA) Negative (Negative) mg/dL Quality VTE Prophylaxis VTE prophylaxis: pharmacologic ordered
[2025-08-22] MEDS: oxyCODONE (*CRX) 5 MG/5 ML ORAL SOLN IR 10 MG PO (09:47)
[2025-08-22] MEDS: GABAPENTIN 400 MG CAPSULE 1200 MG BY MOUTH ×3 (09:48→19:01)
[2025-08-22] MEDS: ENOXAPARIN 40 MG/0.4 ML SYRINGE SUB-Q (09:48)
[2025-08-22] MEDS: NYSTATIN 100,000 UNITS/ML SUSP 5 ML ORAL.SUSP PO ×4 (09:48→22:07)
[2025-08-22] MEDS: INSULIN GLARGINE (*BKC) 100 UNITS/ML 8 UNITS SUB-Q (09:55)
[2025-08-22] MEDS: KCL 20MEQ/0.9% SOD CHL 1,000 ML 100 ML IV CONT ×2 (09:58→22:07)
--- NOTE | 2025-08-22 10:52 | P.PNGS_ITS ---
Progress Note: A&P Assessment and Plan (1) Dysphagia: Qualifiers: Dysphagia type: esophageal phase Qualified Code(s): R13.19 - Other dysphagia Code(s): R13.10 - Dysphagia, unspecified Status: Chronic Assessment and Plan: Upper GI and CT scan yesterday show narrowing at the distal esophagus from f undoplication and fundopexy. This is exactly what I expected was the problem. What seems to be nausea and vomiting to the patient is actually regurgitation of esophageal contents. She did get some relief with the Compazine for feelings of nausea. She seems better today on steroids and bowel rest in that there was no regurgitation of mucus and no feelings of nausea. What is unusual, on her tiara ging, is that her stomach is distended with gas. She has a previous history of some gastro paresis but this is not a usual finding and I am at a loss as to why this is occurring. By the contrast study she had yesterday followed with CT scan and then plain films again this morning, there was no obstruction in the stomach or duodenum as contrast today is all in the colon. IA was going to give her Raglan but this can interact with Compazine and cause extra pyramidal side effects. I will hold off on the Raglan until she no longer needs the Compazine. I will continue to follow the gastric distension with plain films. Otherwise, she is responding to bowel rest and steroids pretty much the same as other patients I have had with this same postoperative problem. (2) History of repair of hiatal hernia: Code(s): Z98.890 - Other specified postprocedural states; Z87.19 - Personal history of other diseases of the digestive system Status: Chronic Assessment and Plan: She is postoperative day 19. It is not surprising she is having postoperative difficulties as she has many comorbid conditions complicating this type of major surgery. There was no evidence of a complication of the surgery such as bowel perforation, recurrent hernia, gastric volvulus. (3) Chronic narcotic dependence: Code(s): F11.20 - Opioid dependence, uncomplicated Status: Chronic Assessment and Plan: She notes that she is having more of her chronic pain or neuropathic pain than usual. She normally takes [place] 10/325 3 times a day for chronic pain. She has been receiving oxycodone elix 10 mg q.6 for pain 4-6 and 15 mg q.6 hours p.r.n. pain 7-10. I will increase each of these doses 5 mg to hopefully make her more comfortable. She still takes gabapentin in pill form and went home with pills of [place]. I would not be surprised if the pills she takes has a significant contribution to the dysphagia described above of. 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 Cultures pending. It is no were the that the patient was admitted to the hospital prior to surgery, on 07/13/2025, with hypercalcemia and dehydration. She was noted at that time to have asymptomatic bacteriuria with E coli grown from the urine sample. She was treated while in the hospital with antibiotics. It was also noted on that admission that she had thrush. This was treated as well. I am not sure her bacteriuria should be treated on this occasion as it seems to be asymptomatic as well. She is on ceftriaxone. Subjective Subjective Date/Time Seen: 08/22/25 10:52 Patient reports: still having pain (Having a lot of phantom pain, oxycodone dose inadequate), voiding w/o difficulty and afebrile Interval history: Nausea and regurgitation of mucus are gone. Exam Const: General: comfortable, alert and awake GI: Inspection: incision (Healing well) and obesity GI Palp: Yes Soft to palpation and No Tenderness to palpation present (GI) Objective Data Vital Signs Vital Signs: Vital Signs - 24 hr 08/21/25 12:04 08/21/25 14:00 08/21/25 21:17 Temperature 35.6 C L 36.7 C Pulse Rate 77 77 76 Respiratory Rate 18 18 12 Blood Pressure 152/78 H 136/70 Pulse Oximetry 93 93 97 Oxygen Delivery Room Air Fraction of Inspired Oxygen 08/21/25 21:25 08/22/25 05:56 Temperature 36.5 C Pulse Rate 76 73 Respiratory Rate 20 Blood Pressure 135/88 Pulse Oximetry 96 93 Oxygen Delivery Room Air Fraction of Inspired Oxygen 21 Intake/Output Intake/Output: Intake & Output 08/19/25 08/20/25 08/21/25 08/22/25 23:59 23:59 23:59 23:59 Intake Total 905 1000.0 Balance 905 1000.0 Meds/Results Medications: Active Medications Generic Name Dose Route Start Last Admin Trade Name Freq PRN Reason Stop Dose Admin Acetaminophen 650 mg 08/21/25 09:48 Acetaminophen Elixir 325 Mg/10.15 Ml Udc PO Q4H PRN Mild Pain (1-3) or Fever Dextrose 12.5 gm 08/21/25 13:21 Dextrose 50% 25 Gm/50 Ml Syringe IV PUSH PRN PRN Hypoglycemia Protocol Enoxaparin Sodium 40 mg 08/21/25 09:55 08/22/25 09:48 Enoxaparin 40 Mg/0.4 Ml Syringe SUB-Q 40 mg DAILY AIDAN Administration Gabapentin 1,200 mg 08/21/25 13:00 08/22/25 09:48 Gabapentin 400 Mg Capsule BY MOUTH 1,200 mg TID AIDAN Administration Glucagon 1 mg 08/21/25 13:21 Glucagon For Inj 1 Mg Vial IM PRN PRN Hypoglycemia Protocol Glucose 15 gm 08/21/25 13:21 Glucose Oral Gel 15 Gm Of Glucse In 37.5 Gm Tube PO PRN PRN Hypoglycemia Protocol Hydralazine HCl 10 mg 08/21/25 19:21 Hydralazine Hcl 20 Mg/Ml Vial IV PUSH Q8H PRN bp>160/90 Hydrocortisone Sodium Succinate 150 mg 08/21/25 14:00 08/22/25 06:15 Hydrocortisone Sodium Succinate 100 Mg/2 Ml Vial IV PUSH 150 mg Q8HR AIDAN Administration Potassium Chloride/Sodium Chloride 1,000 mls @ 100 mls/hr 08/21/25 13:00 08/22/25 09:58 Kcl 20 Meq/Ns IV CONT 100 mls/hr .Q10H AIDAN Administration Dextrose 1,000 mls @ 100 mls/hr 08/21/25 13:21 Dextrose 5% 1,000 Ml IVPB PRN PRN Hypoglycemia Protocol Ceftriaxone Sodium 1 gm/ 50 mls @ 100 mls/hr 08/21/25 14:00 08/21/25 14:25 Sodium Chloride IVPB 100 mls/hr Q24H AIDAN Administration Insulin Aspart 4 - 8 units 08/21/25 18:00 08/22/25 05:57 Insulin Aspart (*Bkc) 100 Units/Ml SUB-Q Not Given Q6HR AIDAN Protocol Insulin Glargine 8 units 08/21/25 13:22 08/22/25 09:55 Insulin Glargine (*Bkc) 100 Units/Ml SUB-Q 8 units DAILY AIDAN Administration Nystatin 5 ml 08/21/25 13:00 08/22/25 09:48 Nystatin 100,000 Units/Ml Susp 5 Ml Oral.Susp PO 5 ml QID AIDAN Administration Oxycodone HCl 15 mg 08/22/25 10:49 Oxycodone (*Crx) 5 Mg/5 Ml Oral Soln Ir PO Q6H PRN Pain Rated 4-6 Oxycodone HCl 20 mg 08/22/25 10:49 Oxycodone (*Crx) 5 Mg/5 Ml Oral Soln Ir PO Q6H PRN Pain Rated 7-10 Polyethylene Glycol 17 gm 08/21/25 09:00 08/22/25 09:46 Polyethylene Glycol 3350 17 Gm Powd.Pack PO Not Given QAM AIDAN Prochlorperazine Edisylate 10 mg 08/21/25 12:11 08/21/25 12:31 Prochlorperazine Edisylate 10 Mg/2 Ml Vial IV PUSH 10 mg Q6H PRN Administration Nausea And Vomiting Radiology Results: ITS Impressions Upper GI Series 08/21/25 11:09 IMPRESSION: 1. Stenosis with delayed passage of contrast at the gastroesophageal junction likely related to a patient reported recent Sera fundoplication with lumen measuring up to 2.5 mm in maximal diameter and with pooling of contrast the more proximal mid to distal esophagus. Abdomen CT 08/21/25 14:37 IMPRESSION: 1. Postoperative change of interval hiatal hernia repair with likely Sera fundoplication. There is an 8.9 x 6.5 cm likely complex fluid collection in the inferior mediastinum the left of the esophagus in the region of the previously herniated stomach most likely representing a postoperative hematoma. Differential would include abscess although there is no surrounding inflammatory stranding to more specifically suggest this. 2. Indeterminate 1.5 similar hyperdense lesion at the dome of liver in the region of peripheral wedge-shaped region of decreased hepatic attenuation suggests scarring related to an indeterminate insult. Correlate with clinical history and consider further evaluation with or multiphase pre and postcontrast MRI. 3. Cholelithiasis. Labs Labs: Laboratory Results - last 24 hr 08/21/25 08/22/25 08/22/25 16:53 00:44 05:26 WBC 6.8 RBC 4.22 Hgb 11.6 L Hct 37.7 MCV 89.3 MCH 27.5 MCHC 30.8 L RDW 15.0 H Plt Count 361 MPV 10.5 H Sodium 137 Potassium 4.4 Chloride 107 Carbon Dioxide 24 Anion Gap 6 BUN 12 Creatinine 0.72 Estim Creat Clear Calc 98 Estimated GFR > 60 Glucose 206 H POC Capillary Glucose 243 H 196 H Calcium 9.0 08/22/25 05:51 WBC RBC Hgb Hct MCV MCH MCHC RDW Plt Count MPV Sodium Potassium Chloride Carbon Dioxide Anion Gap BUN Creatinine Estim Creat Clear Calc Estimated GFR Glucose POC Capillary Glucose 183 H Calcium Imaging Attestation: I personally reviewed and interpreted this imaging study as follows: (Plain film of the abdomen from this morning) My impression: Gastric distention persists, contrast has moved to the colon Radiologist's impression: Same
[2025-08-22 11:11] VITALS: BMI 33.7
[2025-08-22] MEDS: INSULIN ASPART (*BKC) 100 UNITS/ML SUB-Q ×2 (12:32→23:49)
[2025-08-22 14:00] VITALS: BP 127/69; PULSE 66; RESP 18; TEMP 36.1; O2SAT 97
[2025-08-22] MEDS: cefTRIAXone 1 GM in SODIUM CHLORIDE 0.9% IV 50 ML 100 ML IVPB (15:16)
[2025-08-22] MEDS: PROCHLORPERAZINE EDISYLATE 10 MG/2 ML VIAL IV PUSH ×2 (15:26→23:38)
[2025-08-22] MEDS: oxyCODONE (*CRX) 5 MG/5 ML ORAL SOLN IR 20 MG PO ×2 (17:34→23:38)
[2025-08-22 22:00] VITALS: BP 134/71; PULSE 70; RESP 16; TEMP 36.9; O2SAT 94
[2025-08-23] MEDS: HYDROCORTISONE SODIUM SUCCINATE 100 MG/2 ML VIAL 150 MG IV PUSH ×2 (05:28→13:22)
[2025-08-23 05:30] VITALS: BP 137/71; PULSE 51; RESP 16; TEMP 36.5; O2SAT 98
[2025-08-23] MEDS: INSULIN ASPART (*BKC) 100 UNITS/ML SUB-Q ×3 (05:34→23:56)
[2025-08-23 05:46] LABS: Hematocrit 36.7 % (37.0-47.0); Hemoglobin 11.3 g/dL (12.0-15.0); Mean Corpuscular HGB Conc 30.8 g/dl (32-36); Mean Corpuscular Hemoglobin 27.4 pg (26-34); Mean Corpuscular Volume 89.1 fl (80-100); Platelet Count Result 321 k/mm3 (150-375); Red Blood Count 4.12 M/mm3 (4.2-5.4); White Blood Count 7.2 K/mm3 (4.5-10.0)
[2025-08-23 06:31] LABS: Anion Gap 8 mmol/L (4-12); Blood Urea Nitrogen 14 mg/dL (7-17); CRP 1.1 mg/dL (<1.0); Calcium 8.6 mg/dL (8.4-10.2); Carbon Dioxide 22 mmol/L (22-30); Chloride 110 mmol/L (98-107); Estimated CRCL calculation 91 ml/min; Estimated Glomerular Filt Rate > 60; Glucose 208 mg/dL (65-110); Potassium 4.3 mmol/L (3.4-5.0); Sodium 140 mmol/L (137-145)
--- NOTE | 2025-08-23 08:44 | P.PNIM_ITS ---
Progress Note: A&P Assessment and Plan (1) Diabetes: Qualifiers: Diabetes mellitus complication status: without complication Diabetes mellitus ocean transportation intermediary insulin use: with ocean transportation intermediary use Diabetes mellitus type: type 2 Qualified Code(s): E11.9 - Type 2 diabetes mellitus without complications; Z79.4 - FPC (current) use of insulin Code(s): E11.9 - Type 2 diabetes mellitus without complications Status: Chronic Assessment and Plan: - last HgbA1c - 7.5 - continue lantus with SSI. Increased Lantus 08/23. - POCT glucose qACHS - hypoglycemia management protocol (2) History of repair of hiatal hernia: Code(s): Z98.890 - Other specified postprocedural states; Z87.19 - Personal history of other diseases of the digestive system Status: Resolved Assessment and Plan: - Status post robotic laparoscopic repair of large paraesophageal hiatal hernia: - Postoperative nausea, vomiting/dysphagia - Upper GI series: Stenosis with delayed passage of contrast at the gastroesophageal junction likely related to a patient reported recent Sera fundoplication with lumen measuring up to 2.5 mm in maximal diameter and with pooling of contrast the more proximal mid to distal esophagus. - Abd/Pelvis CT: 1. Postoperative change of interval hiatal hernia repair with likely Sera fundoplication. There is an 8.9 x 6.5 cm likely complex fluid collection in the inferior mediastinum the left of the esophagus in the region of the previously herniated stomach most likely representing a postoperative hematoma. Differential would include abscess although there is no surrounding inflammatory stranding to more specifically suggest this. 2. Indeterminate 1.5 similar hyperdense lesion at the dome of liver in the region of peripheral wedge-shaped region of decreased hepatic attenuation suggests scarring related to an indeterminate insult. Correlate with clinical history and consider further evaluation with or multiphase pre and postcontrast MRI. 3. Cholelithiasis. - Per Surgery: continue IV steroids, NPO, start thin liquids - Pain control - IV fluids - p.r.n. compazine (3) Dysphagia: Qualifiers: Dysphagia type: esophageal phase Qualified Code(s): R13.19 - Other dysphagia Code(s): R13.10 - Dysphagia, unspecified Status: Chronic Assessment and Plan: - as above (4) UTI (urinary tract infection): Qualifiers: Hematuria presence: without hematuria Urinary tract infection type: site unspecified Qualified Code(s): N39.0 - Urinary tract infection, site not specified Code(s): N39.0 - Urinary tract infection, site not specified Status: Acute Assessment and Plan: - UA with positive nitrates, 2+ LE, 21-50 WBC, 4+ bacteria, but moderate squamous cells - previous UCx with E coli sensitive to Rocephin - on Rocephin per primary. Urine culture pending. Plan Code status: Full DVT prophylaxis: Lovenox Disposition: Per primary team Subjective Date/time seen: 08/23/25 08:44 Interval history: 64 year old female with history of asthma, HTN, type 2 diabetes, obesity, right BKA with chronic neuropathic pain, and recently underwent robotic laparoscopic repair large paraesophageal hiatal hernia with fundoplasty and fundopexy by Dr. Hernandez on 08/03/25, presenting with worsening nausea, vomiting. Patient seen and examined at bedside. Had a little nausea/vomiting this AM after drinking Miralax. Denies significant pain. Review of Systems Review of Systems: All systems reviewed & are unremarkable except as noted in HPI and below Exam Narrative: General: NAD, obese Eyes: EOMI ENT: neck supple Cardiovascular: Regular rate and rhythm Respiratory: Clear to auscultation, respirations even and unlabored on RA Gastrointestinal: Soft, non tender Genitourinary: no suprapubic tenderness Musculoskeletal: No edema Skin: warm, dry Neuro: Alert. Psych: Mood appropriate Objective Data Vital Signs Vital Signs: Vital Signs - 24 hr 08/22/25 14:00 08/22/25 22:00 08/23/25 05:30 Temperature 97.0 F L 98.5 F 97.7 F Pulse Rate 66 70 51 L Respiratory Rate 18 16 16 Blood Pressure 127/69 134/71 137/71 Pulse Oximetry 97 94 98 Intake/Output Intake/Output: Intake & Output 08/20/25 08/21/25 08/22/25 08/23/25 23:59 23:59 23:59 23:59 Intake Total 955 2000.0 0 Output Total 400 300 Balance 955 1600.0 -300 Meds/Results Medications: Active Medications Generic Name Dose Route Start Last Admin Trade Name Freq PRN Reason Stop Dose Admin Acetaminophen 650 mg 08/21/25 09:48 Acetaminophen Elixir 325 Mg/10.15 Ml Udc PO Q4H PRN Mild Pain (1-3) or Fever Dextrose 12.5 gm 08/21/25 13:21 Dextrose 50% 25 Gm/50 Ml Syringe IV PUSH PRN PRN Hypoglycemia Protocol Enoxaparin Sodium 40 mg 08/21/25 09:55 08/22/25 09:48 Enoxaparin 40 Mg/0.4 Ml Syringe SUB-Q 40 mg DAILY AIDAN Administration Gabapentin 1,200 mg 08/21/25 13:00 08/22/25 19:01 Gabapentin 400 Mg Capsule BY MOUTH 1,200 mg TID AIDAN Administration Glucagon 1 mg 08/21/25 13:21 Glucagon For Inj 1 Mg Vial IM PRN PRN Hypoglycemia Protocol Glucose 15 gm 08/21/25 13:21 Glucose Oral Gel 15 Gm Of Glucse In 37.5 Gm Tube PO PRN PRN Hypoglycemia Protocol Hydralazine HCl 10 mg 08/21/25 19:21 Hydralazine Hcl 20 Mg/Ml Vial IV PUSH Q8H PRN bp>160/90 Hydrocortisone Sodium Succinate 150 mg 08/21/25 14:00 08/23/25 05:28 Hydrocortisone Sodium Succinate 100 Mg/2 Ml Vial IV PUSH 150 mg Q8HR AIDAN Administration Potassium Chloride/Sodium Chloride 1,000 mls @ 100 mls/hr 08/21/25 13:00 08/22/25 22:07 Kcl 20 Meq/Ns IV CONT 100 mls/hr .Q10H AIDAN Administration Dextrose 1,000 mls @ 100 mls/hr 08/21/25 13:21 Dextrose 5% 1,000 Ml IVPB PRN PRN Hypoglycemia Protocol Ceftriaxone Sodium 1 gm/ 50 mls @ 100 mls/hr 08/21/25 14:00 08/22/25 15:16 Sodium Chloride IVPB 100 mls/hr Q24H AIDAN Administration Insulin Aspart 4 - 8 units 08/21/25 18:00 08/23/25 05:34 Insulin Aspart (*Bkc) 100 Units/Ml SUB-Q 4 units Q6HR AIDAN Administration Protocol Insulin Glargine 8 units 08/21/25 13:22 08/22/25 09:55 Insulin Glargine (*Bkc) 100 Units/Ml SUB-Q 8 units DAILY AIDAN Administration Nystatin 5 ml 08/21/25 13:00 08/22/25 22:07 Nystatin 100,000 Units/Ml Susp 5 Ml Oral.Susp PO 5 ml QID AIDAN Administration Oxycodone HCl 15 mg 08/22/25 10:49 08/22/25 11:10 Oxycodone (*Crx) 5 Mg/5 Ml Oral Soln Ir PO 15 mg Q6H PRN Administration Pain Rated 4-6 Oxycodone HCl 20 mg 08/22/25 10:49 08/22/25 23:38 Oxycodone (*Crx) 5 Mg/5 Ml Oral Soln Ir PO 20 mg Q6H PRN Administration Pain Rated 7-10 Polyethylene Glycol 17 gm 08/21/25 09:00 08/22/25 09:46 Polyethylene Glycol 3350 17 Gm Powd.Pack PO Not Given QAM AIDAN Prochlorperazine Edisylate 10 mg 08/21/25 12:11 08/22/25 23:38 Prochlorperazine Edisylate 10 Mg/2 Ml Vial IV PUSH 10 mg Q6H PRN Administration Nausea And Vomiting Radiology Results: ITS Impressions Upper GI Series 08/21/25 11:09 IMPRESSION: 1. Stenosis with delayed passage of contrast at the gastroesophageal junction likely related to a patient reported recent Sera fundoplication with lumen measuring up to 2.5 mm in maximal diameter and with pooling of contrast the more proximal mid to distal esophagus. Abdomen CT 08/21/25 14:37 IMPRESSION: 1. Postoperative change of interval hiatal hernia repair with likely Sera fundoplication. There is an 8.9 x 6.5 cm likely complex fluid collection in the inferior mediastinum the left of the esophagus in the region of the previously herniated stomach most likely representing a postoperative hematoma. Differential would include abscess although there is no surrounding inflammatory stranding to more specifically suggest this. 2. Indeterminate 1.5 similar hyperdense lesion at the dome of liver in the region of peripheral wedge-shaped region of decreased hepatic attenuation suggests scarring related to an indeterminate insult. Correlate with clinical history and consider further evaluation with or multiphase pre and postcontrast MRI. 3. Cholelithiasis. Abdomen X-Ray 08/23/25 07:41 IMPRESSION: 1: No acute abdominal abnormality identified. Labs Labs: Laboratory Results - last 24 hr 08/22/25 08/22/25 08/22/25 11:31 18:00 23:40 WBC RBC Hgb Hct MCV MCH MCHC RDW Plt Count MPV Sodium Potassium Chloride Carbon Dioxide Anion Gap BUN Creatinine Estim Creat Clear Calc Estimated GFR Glucose POC Capillary Glucose 226 H 199 H 224 H Calcium C-Reactive Protein 08/23/25 08/23/25 08/23/25 05:32 05:34 05:35 WBC 7.2 RBC 4.12 L Hgb 11.3 L Hct 36.7 L MCV 89.1 MCH 27.4 MCHC 30.8 L RDW 15.2 H Plt Count 321 MPV 10.7 H Sodium 140 Potassium 4.3 Chloride 110 H Carbon Dioxide 22 Anion Gap 8 BUN 14 Creatinine 0.78 Estim Creat Clear Calc 91 Estimated GFR > 60 Glucose 208 H POC Capillary Glucose 210 H Calcium 8.6 C-Reactive Protein 1.1 Quality VTE Prophylaxis VTE prophylaxis: pharmacologic ordered
[2025-08-23] MEDS: oxyCODONE (*CRX) 5 MG/5 ML ORAL SOLN IR 15 MG PO (08:46)
[2025-08-23] MEDS: NYSTATIN 100,000 UNITS/ML SUSP 5 ML ORAL.SUSP PO ×4 (08:46→21:30)
[2025-08-23] MEDS: KCL 20MEQ/0.9% SOD CHL 1,000 ML 100 ML IV CONT ×2 (08:47→21:31)
[2025-08-23] MEDS: GABAPENTIN 400 MG CAPSULE 1200 MG BY MOUTH ×3 (08:47→16:30)
[2025-08-23] MEDS: PROCHLORPERAZINE EDISYLATE 10 MG/2 ML VIAL IV PUSH (08:48)
[2025-08-23] MEDS: INSULIN GLARGINE (*BKC) 100 UNITS/ML 10 UNITS SUB-Q (08:59)
[2025-08-23] MEDS: ENOXAPARIN 40 MG/0.4 ML SYRINGE SUB-Q (09:02)
[2025-08-23] MEDS: cefTRIAXone 1 GM in SODIUM CHLORIDE 0.9% IV 50 ML 100 ML IVPB (13:22)
[2025-08-23 14:00] VITALS: BP 132/68; PULSE 59; RESP 16; TEMP 36.4; O2SAT 99
--- NOTE | 2025-08-23 15:23 | PM.PNGS ---
Progress Note: A&P Assessment and Plan (1) Dysphagia: Qualifiers: Dysphagia type: esophageal phase Qualified Code(s): R13.19 - Other dysphagia Code(s): R13.10 - Dysphagia, unspecified Status: Chronic Assessment and Plan: No new complaints. Patient states she feels a little better than yesterday. No nausea, vomiting, regurgitation or any other new symptoms. Abdominal x-ray today demonstrated normal bowel gas pattern with no acute abnormalities identified. Oxycodone for pain. Compazine for nausea. Will continue bowel rest and IV steroids. We will likely introduce clear liquids tomorrow. (2) History of repair of hiatal hernia: Code(s): Z98.890 - Other specified postprocedural states; Z87.19 - Personal history of other diseases of the digestive system Status: Chronic Assessment and Plan: Postoperative day 20. No evidence of a surgical complication including bowel perforation, recurrent hernia, gastric volvulus. (3) Chronic narcotic dependence: Code(s): F11.20 - Opioid dependence, uncomplicated Status: Chronic Assessment and Plan: She notes that she is having more of her chronic pain or neuropathic pain than usual. She normally takes [place] 10/325 3 times a day for chronic pain. She has been receiving oxycodone elix 10 mg q.6 for pain 4-6 and 15 mg q.6 hours p.r.n. pain 7-10. Doses of oxycodone elix increased yesterday to 15 mg for pain 4-6 and 20 mg for pain 7-10. Seem to be working well. (4) Diabetes: Qualifiers: Diabetes mellitus type: type 2 Diabetes mellitus adjunct faculty for medical terminology insulin use: with adjunct faculty for medical terminology use Diabetes mellitus complication status: without complication Qualified Code(s): E11.9 - Type 2 diabetes mellitus without complications; Z79.4 - buttermaker helper (current) use of insulin Code(s): E11.9 - Type 2 diabetes mellitus without complications Status: Chronic (5) Thrush, oral: Code(s): B37.0 - Candidal stomatitis Status: Acute Assessment and Plan: Continue nystatin swish and swallow (6) Phantom pain after amputation of lower extremity: Code(s): G54.6 - Phantom limb syndrome with pain Status: Chronic Assessment and Plan: Current pain regimen of oxycodone elix seems to be working well. (7) UTI (urinary tract infection): Qualifiers: Urinary tract infection type: site unspecified Hematuria presence: without hematuria Qualified Code(s): N39.0 - Urinary tract infection, site not specified Code(s): N39.0 - Urinary tract infection, site not specified Status: Acute Assessment and Plan: Suspicious urine sample on admission. Cultures pending. Urine clean catch grew E coli upon patient's last admission. Continue ceftriaxone. Plan Discussed patient's case and plan of care with Dr. Hernandez. Subjective Subjective Date/Time Seen: 08/23/25 15:23 Patient reports: no new complaints and feels better Interval history: No acute events overnight. Patient states she is feeling a bit better today. No nausea, vomiting, regurgitation, or other symptoms. Afebrile. WBC remains normal. Exam Const: General: comfortable and no acute distress GI: Inspection: non-distended GI Palp: Yes Soft to palpation, No Tenderness to palpation present (GI) and No Guarding due to palpation present (GI) Other: Incisions are clean and dry with no signs of infection. Glue starting to peel off. Objective Data Vital Signs Vital Signs: Vital Signs - 24 hr 08/22/25 22:00 08/23/25 05:30 08/23/25 08:00 Temperature 98.5 F 97.7 F Pulse Rate 70 51 L Respiratory Rate 16 16 Blood Pressure 134/71 137/71 Pulse Oximetry 94 98 Oxygen Delivery Room Air 08/23/25 14:00 Temperature 97.6 F Pulse Rate 59 L Respiratory Rate 16 Blood Pressure 132/68 Pulse Oximetry 99 Oxygen Delivery Intake/Output Intake/Output: Intake & Output 08/20/25 08/21/25 08/22/25 08/23/25 23:59 23:59 23:59 23:59 Intake Total 955 2050.0 1000 Output Total 400 800 Balance 955 1650.0 200 Meds/Results Medications: Active Medications Generic Name Dose Route Start Last Admin Trade Name Freq PRN Reason Stop Dose Admin Acetaminophen 650 mg 08/21/25 09:48 Acetaminophen Elixir 325 Mg/10.15 Ml Udc PO Q4H PRN Mild Pain (1-3) or Fever Dextrose 12.5 gm 08/21/25 13:21 Dextrose 50% 25 Gm/50 Ml Syringe IV PUSH PRN PRN Hypoglycemia Protocol Enoxaparin Sodium 40 mg 08/21/25 09:55 08/23/25 09:02 Enoxaparin 40 Mg/0.4 Ml Syringe SUB-Q 40 mg DAILY AIDAN Administration Gabapentin 1,200 mg 08/21/25 13:00 08/23/25 13:23 Gabapentin 400 Mg Capsule BY MOUTH 1,200 mg TID AIDAN Administration Glucagon 1 mg 08/21/25 13:21 Glucagon For Inj 1 Mg Vial IM PRN PRN Hypoglycemia Protocol Glucose 15 gm 08/21/25 13:21 Glucose Oral Gel 15 Gm Of Glucse In 37.5 Gm Tube PO PRN PRN Hypoglycemia Protocol Hydralazine HCl 10 mg 08/21/25 19:21 Hydralazine Hcl 20 Mg/Ml Vial IV PUSH Q8H PRN bp>160/90 Hydrocortisone Sodium Succinate 150 mg 08/21/25 14:00 08/23/25 13:22 Hydrocortisone Sodium Succinate 100 Mg/2 Ml Vial IV PUSH 150 mg Q8HR AIDAN Administration Potassium Chloride/Sodium Chloride 1,000 mls @ 100 mls/hr 08/21/25 13:00 08/23/25 08:47 Kcl 20 Meq/Ns IV CONT 100 mls/hr .Q10H AIDAN Administration Dextrose 1,000 mls @ 100 mls/hr 08/21/25 13:21 Dextrose 5% 1,000 Ml IVPB PRN PRN Hypoglycemia Protocol Ceftriaxone Sodium 1 gm/ 50 mls @ 100 mls/hr 08/21/25 14:00 08/23/25 13:22 Sodium Chloride IVPB 100 mls/hr Q24H AIDAN Administration Insulin Aspart 4 - 8 units 08/21/25 18:00 08/23/25 13:23 Insulin Aspart (*Bkc) 100 Units/Ml SUB-Q 4 units Q6HR AIDAN Administration Protocol Insulin Glargine 10 units 08/23/25 09:00 08/23/25 08:59 Insulin Glargine (*Bkc) 100 Units/Ml SUB-Q 10 units DAILY AIDAN Administration Nystatin 5 ml 08/21/25 13:00 08/23/25 13:23 Nystatin 100,000 Units/Ml Susp 5 Ml Oral.Susp PO 5 ml QID AIDAN Administration Oxycodone HCl 15 mg 08/22/25 10:49 08/23/25 08:46 Oxycodone (*Crx) 5 Mg/5 Ml Oral Soln Ir PO 15 mg Q6H PRN Administration Pain Rated 4-6 Oxycodone HCl 20 mg 08/22/25 10:49 08/22/25 23:38 Oxycodone (*Crx) 5 Mg/5 Ml Oral Soln Ir PO 20 mg Q6H PRN Administration Pain Rated 7-10 Polyethylene Glycol 17 gm 08/21/25 09:00 08/23/25 08:46 Polyethylene Glycol 3350 17 Gm Powd.Pack PO 17 gm QAM AIDAN Administration Prochlorperazine Edisylate 10 mg 08/21/25 12:11 08/23/25 08:48 Prochlorperazine Edisylate 10 Mg/2 Ml Vial IV PUSH 10 mg Q6H PRN Administration Nausea And Vomiting Radiology Results: ITS Impressions Upper GI Series 08/21/25 11:09 IMPRESSION: 1. Stenosis with delayed passage of contrast at the gastroesophageal junction likely related to a patient reported recent Sera fundoplication with lumen measuring up to 2.5 mm in maximal diameter and with pooling of contrast the more proximal mid to distal esophagus. Abdomen CT 08/21/25 14:37 IMPRESSION: 1. Postoperative change of interval hiatal hernia repair with likely Sera fundoplication. There is an 8.9 x 6.5 cm likely complex fluid collection in the inferior mediastinum the left of the esophagus in the region of the previously herniated stomach most likely representing a postoperative hematoma. Differential would include abscess although there is no surrounding inflammatory stranding to more specifically suggest this. 2. Indeterminate 1.5 similar hyperdense lesion at the dome of liver in the region of peripheral wedge-shaped region of decreased hepatic attenuation suggests scarring related to an indeterminate insult. Correlate with clinical history and consider further evaluation with or multiphase pre and postcontrast MRI. 3. Cholelithiasis. Abdomen X-Ray 08/23/25 07:41 IMPRESSION: 1: No acute abdominal abnormality identified. Labs Labs: Laboratory Results - last 24 hr 08/22/25 08/22/25 08/23/25 18:00 23:40 05:32 WBC RBC Hgb Hct MCV MCH MCHC RDW Plt Count MPV Sodium Potassium Chloride Carbon Dioxide Anion Gap BUN Creatinine Estim Creat Clear Calc Estimated GFR Glucose POC Capillary Glucose 199 H 224 H 210 H Calcium C-Reactive Protein 08/23/25 08/23/2508/23/25 05:34 05:35 11:15 WBC 7.2 RBC 4.12 L Hgb 11.3 L Hct 36.7 L MCV 89.1 MCH 27.4 MCHC 30.8 L RDW 15.2 H Plt Count 321 MPV 10.7 H Sodium 140 Potassium 4.3 Chloride 110 H Carbon Dioxide 22 Anion Gap 8 BUN 14 Creatinine 0.78 Estim Creat Clear Calc 91 Estimated GFR > 60 Glucose 208 H POC Capillary Glucose 206 H Calcium 8.6 C-Reactive Protein 1.1
[2025-08-23] MEDS: oxyCODONE (*CRX) 5 MG/5 ML ORAL SOLN IR 20 MG PO ×2 (16:29→22:46)
[2025-08-23] MEDS: HYDROCORTISONE SODIUM SUCCINATE 100 MG/2 ML VIAL IV PUSH (21:30)
[2025-08-23 21:50] VITALS: BP 130/82; PULSE 52; RESP 16; TEMP 36.6; O2SAT 98
[2025-08-24 05:35] LABS: Hematocrit 38.2 % (37.0-47.0); Hemoglobin 11.8 g/dL (12.0-15.0); Mean Corpuscular HGB Conc 30.9 g/dl (32-36); Mean Corpuscular Hemoglobin 27.3 pg (26-34); Mean Corpuscular Volume 88.4 fl (80-100); Platelet Count Result 329 k/mm3 (150-375); Red Blood Count 4.32 M/mm3 (4.2-5.4); White Blood Count 7.4 K/mm3 (4.5-10.0)
[2025-08-24] MEDS: HYDROCORTISONE SODIUM SUCCINATE 100 MG/2 ML VIAL IV PUSH ×3 (05:46→21:24)
[2025-08-24 05:55] VITALS: BP 155/78; PULSE 48; RESP 16; TEMP 36.5; O2SAT 98
[2025-08-24 06:03] LABS: Anion Gap 7 mmol/L (4-12); Blood Urea Nitrogen 16 mg/dL (7-17); Calcium 8.6 mg/dL (8.4-10.2); Carbon Dioxide 21 mmol/L (22-30); Chloride 111 mmol/L (98-107); Estimated CRCL calculation 83 ml/min; Estimated Glomerular Filt Rate > 60; Glucose 165 mg/dL (65-110); Potassium 4.0 mmol/L (3.4-5.0); Sodium 139 mmol/L (137-145)
--- NOTE | 2025-08-24 08:15 | P.PNIM_ITS ---
Progress Note: A&P Assessment and Plan (1) Diabetes: Qualifiers: Diabetes mellitus complication status: without complication Diabetes mellitus intermediate designer insulin use: with intermediate designer use Diabetes mellitus type: type 2 Qualified Code(s): E11.9 - Type 2 diabetes mellitus without complications; Z79.4 - custodial (current) use of insulin Code(s): E11.9 - Type 2 diabetes mellitus without complications Status: Chronic Assessment and Plan: - last HgbA1c - 7.5 - Increased lantus to 12u BID. Continue high dose SSI. - POCT glucose qACHS - hypoglycemia management protocol (2) History of repair of hiatal hernia: Code(s): Z98.890 - Other specified postprocedural states; Z87.19 - Personal history of other diseases of the digestive system Status: Resolved Assessment and Plan: - Status post robotic laparoscopic repair of large paraesophageal hiatal hernia 08/03/25 - Postoperative nausea, vomiting/dysphagia - Upper GI series: Stenosis with delayed passage of contrast at the gastroesophageal junction likely related to a patient reported recent Sera fundoplication with lumen measuring up to 2.5 mm in maximal diameter and with pooling of contrast the more proximal mid to distal esophagus. - CT A/P with postoperative changes, 8.9 x 6.5 cm likely complex fluid collection in the inferior mediastinum the left of the esophagus in the region of the previously herniated stomach most likely representing a postoperative hematoma. - management per primary - planning to start clear liquids today - Pain control, antiemetics - maintenance IV fluids (3) Dysphagia: Qualifiers: Dysphagia type: esophageal phase Qualified Code(s): R13.19 - Other dysphagia Code(s): R13.10 - Dysphagia, unspecified Status: Chronic Assessment and Plan: - as above (4) Abnormal urinalysis: Code(s): R82.90 - Unspecified abnormal findings in urine Status: Acute Assessment and Plan: - UA with positive nitrates, 2+ LE, 21-50 WBC, 4+ bacteria, but moderate squamous cells - urine culture with no growth - IV Rocephin stopped Plan Code status: Full DVT prophylaxis: Lovenox Disposition: Per primary team Subjective Date/time seen: 08/24/25 08:15 Interval history: 64 year old female with history of asthma, HTN, type 2 diabetes, obesity, right BKA with chronic neuropathic pain, and recently underwent robotic laparoscopic repair large paraesophageal hiatal hernia with fundoplasty and fundopexy by Dr. Hernandez on 08/03/25, presenting with worsening nausea, vomiting. Patient seen and examined at bedside. Doing well with clear liquids. Review of Systems Review of Systems: All systems reviewed & are unremarkable except as noted in HPI and below Exam Narrative: General: NAD, obese Eyes: EOMI ENT: neck supple Cardiovascular: Regular rate and rhythm Respiratory: Clear to auscultation, respirations even and unlabored on RA Gastrointestinal: Soft, non tender Genitourinary: no suprapubic tenderness Musculoskeletal: No edema Skin: warm, dry Neuro: Alert. Psych: Mood appropriate Objective Data Vital Signs Vital Signs: Vital Signs - 24 hr 08/23/25 14:00 08/23/25 21:50 08/24/25 05:55 Temperature 97.6 F 98 F 97.7 F Pulse Rate 59 L 52 L 48 L Respiratory Rate 16 16 16 Blood Pressure 132/68 130/82 155/78 H Pulse Oximetry 99 98 98 Intake/Output Intake/Output: Intake & Output 08/21/25 08/22/25 08/23/25 08/24/25 23:59 23:59 23:59 23:59 Intake Total 955 2050.0 2000 Output Total 400 1100 300 Balance 955 1650.0 900 -300 Meds/Results Medications: Active Medications Generic Name Dose Route Start Last Admin Trade Name Freq PRN Reason Stop Dose Admin Acetaminophen 650 mg 08/21/25 09:48 Acetaminophen Elixir 325 Mg/10.15 Ml Udc PO Q4H PRN Mild Pain (1-3) or Fever Dextrose 12.5 gm 08/21/25 13:21 Dextrose 50% 25 Gm/50 Ml Syringe IV PUSH PRN PRN Hypoglycemia Protocol Enoxaparin Sodium 40 mg 08/21/25 09:55 08/23/25 09:02 Enoxaparin 40 Mg/0.4 Ml Syringe SUB-Q 40 mg DAILY AIDAN Administration Gabapentin 1,200 mg 08/21/25 13:00 08/23/25 16:30 Gabapentin 400 Mg Capsule BY MOUTH 1,200 mg TID AIDAN Administration Glucagon 1 mg 08/21/25 13:21 Glucagon For Inj 1 Mg Vial IM PRN PRN Hypoglycemia Protocol Glucose 15 gm 08/21/25 13:21 Glucose Oral Gel 15 Gm Of Glucse In 37.5 Gm Tube PO PRN PRN Hypoglycemia Protocol Hydralazine HCl 10 mg 08/21/25 19:21 Hydralazine Hcl 20 Mg/Ml Vial IV PUSH Q8H PRN bp>160/90 Hydrocortisone Sodium Succinate 100 mg 08/23/25 22:00 08/24/25 05:46 Hydrocortisone Sodium Succinate 100 Mg/2 Ml Vial IV PUSH 100 mg Q8HR AIDAN Administration Potassium Chloride/Sodium Chloride 1,000 mls @ 80 mls/hr 08/21/25 13:00 08/23/25 21:31 Kcl 20 Meq/Ns IV CONT 100 mls/hr .[id number] AIDAN Administration Dextrose 1,000 mls @ 100 mls/hr 08/21/25 13:21 Dextrose 5% 1,000 Ml IVPB PRN PRN Hypoglycemia Protocol Insulin Aspart 4 - 8 units 08/21/25 18:00 08/24/25 06:22 Insulin Aspart (*Bkc) 100 Units/Ml SUB-Q Not Given Q6HR [facility] Protocol Insulin Glargine 10 units 08/23/25 09:00 08/23/25 08:59 Insulin Glargine (*Bkc) 100 Units/Ml SUB-Q 10 units DAILY AIDAN Administration Nystatin 5 ml 08/21/25 13:00 08/23/25 21:30 Nystatin 100,000 Units/Ml Susp 5 Ml Oral.Susp PO 5 ml QID AIDAN Administration Oxycodone HCl 15 mg 08/22/25 10:49 08/23/25 08:46 Oxycodone (*Crx) 5 Mg/5 Ml Oral Soln Ir PO 15 mg Q6H PRN Administration Pain Rated 4-6 Oxycodone HCl 20 mg 08/22/25 10:49 08/23/25 22:46 Oxycodone (*Crx) 5 Mg/5 Ml Oral Soln Ir PO 20 mg Q6H PRN Administration Pain Rated 7-10 Polyethylene Glycol 17 gm 08/21/25 09:00 08/23/25 08:46 Polyethylene Glycol 3350 17 Gm Powd.Pack PO 17 gm QAM AIDAN Administration Prochlorperazine Edisylate 10 mg 08/21/25 12:11 08/23/25 08:48 Prochlorperazine Edisylate 10 Mg/2 Ml Vial IV PUSH 10 mg Q6H PRN Administration Nausea And Vomiting Radiology Results: ITS Impressions Upper GI Series 08/21/25 11:09 IMPRESSION: 1. Stenosis with delayed passage of contrast at the gastroesophageal junction likely related to a patient reported recent Sera fundoplication with lumen measuring up to 2.5 mm in maximal diameter and with pooling of contrast the more proximal mid to distal esophagus. Abdomen CT 08/21/25 14:37 IMPRESSION: 1. Postoperative change of interval hiatal hernia repair with likely Sera fundoplication. There is an 8.9 x 6.5 cm likely complex fluid collection in the inferior mediastinum the left of the esophagus in the region of the previously herniated stomach most likely representing a postoperative hematoma. Differential would include abscess although there is no surrounding inflammatory stranding to more specifically suggest this. 2. Indeterminate 1.5 similar hyperdense lesion at the dome of liver in the region of peripheral wedge-shaped region of decreased hepatic attenuation suggests scarring related to an indeterminate insult. Correlate with clinical history and consider further evaluation with or multiphase pre and postcontrast MRI. 3. Cholelithiasis. Labs Labs: Laboratory Results - last 24 hr 08/23/25 08/23/25 08/23/25 11:15 18:35 23:48 WBC RBC Hgb Hct MCV MCH MCHC RDW Plt Count MPV Sodium Potassium Chloride Carbon Dioxide Anion Gap BUN Creatinine Estim Creat Clear Calc Estimated GFR Glucose POC Capillary Glucose 206 H 192 H 205 H Calcium 08/24/25 05:28 WBC 7.4 RBC 4.32 Hgb 11.8 L Hct 38.2 MCV 88.4 MCH 27.3 MCHC 30.9 L RDW 15.3 H Plt Count 329 MPV 10.5 H Sodium 139 Potassium 4.0 Chloride 111 H Carbon Dioxide 21 L Anion Gap 7 BUN 16 Creatinine 0.86 Estim Creat Clear Calc 83 Estimated GFR > 60 Glucose 165 H POC Capillary Glucose Calcium 8.6 Quality VTE Prophylaxis VTE prophylaxis: pharmacologic ordered
[2025-08-24] MEDS: KCL 20MEQ/0.9% SOD CHL 1,000 ML 80 ML IV CONT ×2 (08:47→23:41)
[2025-08-24] MEDS: NYSTATIN 100,000 UNITS/ML SUSP 5 ML ORAL.SUSP PO ×4 (08:49→21:22)
[2025-08-24] MEDS: GABAPENTIN 400 MG CAPSULE 1200 MG BY MOUTH ×3 (08:49→17:17)
[2025-08-24] MEDS: INSULIN GLARGINE (*BKC) 100 UNITS/ML 12 UNITS SUB-Q ×2 (08:52→21:23)
[2025-08-24] MEDS: ENOXAPARIN 40 MG/0.4 ML SYRINGE SUB-Q (08:52)
[2025-08-24] MEDS: oxyCODONE (*CRX) 5 MG/5 ML ORAL SOLN IR 20 MG PO ×3 (09:48→23:28)
--- NOTE | 2025-08-24 10:58 | PCNFU ---
Nutrition Follow-Up Complete: Inadequate energy intake related to NPO status as evidenced by current diet order Goal: Diet order PO intake with tolerance Patient is progressing towards goal. We will continue current goal. Pt current nutrition is Clear liquids. Nutrition recommendation: advance diet as tolerated per MD orders. Last recorded weight is 113 kg Bowel Motility: Last reported BM 08/22 Labs Reviewed: Glu 165, Hgb 11..8 Meds Noted: NovoLog, Lantus, Miralax, Lovenox. Skin: WNL Additional Notes: Patient current with clear liquid diet. Diet supplement of ensure clear on tray providing an additional 240 kcal and 8 gm protein. Recommend advancing diet as tolerated per MD orders and adding Glucerna shakes TID for additional 220 kcal and 10 gm protein. Monitor for diet order, intake, tolerance, wt, labs. Follow up in 3 days.
[2025-08-24] MEDS: INSULIN ASPART (*BKC) 100 UNITS/ML SUB-Q ×3 (13:14→23:29)
[2025-08-24 15:33] VITALS: BP 140/76; PULSE 55; RESP 18; TEMP 36.3; O2SAT 97
[2025-08-24 20:55] VITALS: BP 148/75; PULSE 54; RESP 16; TEMP 36.5; O2SAT 96
[2025-08-25] MEDS: HYDROCORTISONE SODIUM SUCCINATE 100 MG/2 ML VIAL IV PUSH ×2 (05:29→17:09)
[2025-08-25 05:34] VITALS: BP 143/77; PULSE 54; RESP 16; TEMP 36.8; O2SAT 97
[2025-08-25 05:44] LABS: Hematocrit 37.1 % (37.0-47.0); Hemoglobin 11.3 g/dL (12.0-15.0); Mean Corpuscular HGB Conc 30.5 g/dl (32-36); Mean Corpuscular Hemoglobin 27.7 pg (26-34); Mean Corpuscular Volume 90.9 fl (80-100); Platelet Count Result 224 k/mm3 (150-375); Red Blood Count 4.08 M/mm3 (4.2-5.4); White Blood Count 5.7 K/mm3 (4.5-10.0)
[2025-08-25 05:56] LABS: Anion Gap 8 mmol/L (4-12); Blood Urea Nitrogen 14 mg/dL (7-17); Calcium 8.3 mg/dL (8.4-10.2); Carbon Dioxide 17 mmol/L (22-30); Chloride 111 mmol/L (98-107); Estimated CRCL calculation 104 ml/min; Estimated Glomerular Filt Rate > 60; Glucose 177 mg/dL (65-110); Potassium 4.4 mmol/L (3.4-5.0); Sodium 136 mmol/L (137-145)
--- NOTE | 2025-08-25 07:27 | PM.PNGS ---
Progress Note: A&P Assessment and Plan (1) Dysphagia: Qualifiers: Dysphagia type: esophageal phase Qualified Code(s): R13.19 - Other dysphagia Code(s): R13.10 - Dysphagia, unspecified Status: Chronic Assessment and Plan: Much improved. Tolerating clear liquids well. (2) History of repair of hiatal hernia: Code(s): Z98.890 - Other specified postprocedural states; Z87.19 - Personal history of other diseases of the digestive system Status: Chronic (3) Chronic narcotic dependence: Code(s): F11.20 - Opioid dependence, uncomplicated Status: Chronic Assessment and Plan: Increased dose of oxycodone elix has her much more comfortable. Will have to go home on her normal dose of [place] pills. (4) Diabetes: Qualifiers: Diabetes mellitus type: type 2 Diabetes mellitus half-way insulin use: with half-way use Diabetes mellitus complication status: without complication Qualified Code(s): E11.9 - Type 2 diabetes mellitus without complications; Z79.4 - nursing home (current) use of insulin Code(s): E11.9 - Type 2 diabetes mellitus without complications Status: Chronic Assessment and Plan: Blood sugars are 200 generally, sometimes less sometimes more. (5) Thrush, oral: Code(s): B37.0 - Candidal stomatitis Status: Acute Assessment and Plan: Had this an previous admission on July 13. Will continue nystatin swish and swallow for total of 14 days. (6) Phantom pain after amputation of lower extremity: Code(s): G54.6 - Phantom limb syndrome with pain Status: Chronic Assessment and Plan: Comfortable this time (7) UTI (urinary tract infection): Qualifiers: Urinary tract infection type: site unspecified Hematuria presence: without hematuria Qualified Code(s): N39.0 - Urinary tract infection, site not specified Code(s): N39.0 - Urinary tract infection, site not specified Status: Ruled-out Assessment and Plan: Urine culture negative. Never was symptomatic. Will discontinue ceftriaxone. Subjective Subjective Date/Time Seen: 08/25/25 07:27 Patient reports: no new complaints, feels better, tolerating liquids well and afebrile Exam Const: General: comfortable and awake GI: Inspection: incision (Continue to heal well) GI Palp: Yes Soft to palpation and No Tenderness to palpation present (GI) Objective Data Vital Signs Vital Signs: Vital Signs - 24 hr 08/24/25 08:00 08/24/25 15:33 08/24/25 20:55 Temperature 36.3 C L 36.5 C Pulse Rate 55 L 54 L Respiratory Rate 18 16 Blood Pressure 140/76 148/75 H Pulse Oximetry 97 96 Oxygen Delivery Room Air 08/24/25 21:20 08/25/25 05:34 Temperature 36.8 C Pulse Rate 54 L Respiratory Rate 16 Blood Pressure 143/77 H Pulse Oximetry 97 Oxygen Delivery Room Air Intake/Output Intake/Output: Intake & Output 08/22/25 08/23/25 08/24/25 08/25/25 23:59 23:59 23:59 23:59 Intake Total 2050.0 2000 4052 120 Output Total 400 1100 700 600 Balance 1650.0 900 3352 -480 Meds/Results Medications: Active Medications Generic Name Dose Route Start Last Admin Trade Name Freq PRN Reason Stop Dose Admin Acetaminophen 650 mg 08/21/25 09:48 Acetaminophen Elixir 325 Mg/10.15 Ml Udc PO Q4H PRN Mild Pain (1-3) or Fever Dextrose 12.5 gm 08/21/25 13:21 Dextrose 50% 25 Gm/50 Ml Syringe IV PUSH PRN PRN Hypoglycemia Protocol Enoxaparin Sodium 40 mg 08/21/25 09:55 08/24/25 08:52 Enoxaparin 40 Mg/0.4 Ml Syringe SUB-Q 40 mg DAILY AIDAN Administration Gabapentin 1,200 mg 08/21/25 13:00 08/24/25 17:17 Gabapentin 400 Mg Capsule BY MOUTH 1,200 mg TID AIDAN Administration Glucagon 1 mg 08/21/25 13:21 Glucagon For Inj 1 Mg Vial IM PRN PRN Hypoglycemia Protocol Glucose 15 gm 08/21/25 13:21 Glucose Oral Gel 15 Gm Of Glucse In 37.5 Gm Tube PO PRN PRN Hypoglycemia Protocol Hydralazine HCl 10 mg 08/21/25 19:21 Hydralazine Hcl 20 Mg/Ml Vial IV PUSH Q8H PRN bp>160/90 Dextrose 1,000 mls @ 100 mls/hr 08/21/25 13:21 Dextrose 5% 1,000 Ml IVPB PRN PRN Hypoglycemia Protocol Insulin Aspart 4 - 8 units 08/21/25 18:00 08/25/25 05:29 Insulin Aspart (*Bkc) 100 Units/Ml SUB-Q Not Given Q6HR [facility] Protocol Insulin Glargine 12 units 08/24/25 21:00 08/24/25 21:23 Insulin Glargine (*Bkc) 100 Units/Ml SUB-Q 12 units BID AIDAN Administration Nystatin 5 ml 08/21/25 13:00 08/24/25 21:22 Nystatin 100,000 Units/Ml Susp 5 Ml Oral.Susp PO 5 ml QID AIDAN Administration Oxycodone HCl 15 mg 08/22/25 10:49 08/23/25 08:46 Oxycodone (*Crx) 5 Mg/5 Ml Oral Soln Ir PO 15 mg Q6H PRN Administration Pain Rated 4-6 Oxycodone HCl 20 mg 08/22/25 10:49 08/24/25 23:28 Oxycodone (*Crx) 5 Mg/5 Ml Oral Soln Ir PO 20 mg Q6H PRN Administration Pain Rated 7-10 Polyethylene Glycol 17 gm 08/21/25 09:00 08/24/25 08:49 Polyethylene Glycol 3350 17 Gm Powd.Pack PO Not Given QAM [facility] Prochlorperazine Edisylate 10 mg 08/21/25 12:11 08/23/25 08:48 Prochlorperazine Edisylate 10 Mg/2 Ml Vial IV PUSH 10 mg Q6H PRN Administration Nausea And Vomiting Radiology Results: ITS Impressions Upper GI Series 08/21/25 11:09 IMPRESSION: 1. Stenosis with delayed passage of contrast at the gastroesophageal junction likely related to a patient reported recent Sera fundoplication with lumen measuring up to 2.5 mm in maximal diameter and with pooling of contrast the more proximal mid to distal esophagus. Abdomen CT 08/21/25 14:37 IMPRESSION: 1. Postoperative change of interval hiatal hernia repair with likely Sera fundoplication. There is an 8.9 x 6.5 cm likely complex fluid collection in the inferior mediastinum the left of the esophagus in the region of the previously herniated stomach most likely representing a postoperative hematoma. Differential would include abscess although there is no surrounding inflammatory stranding to more specifically suggest this. 2. Indeterminate 1.5 similar hyperdense lesion at the dome of liver in the region of peripheral wedge-shaped region of decreased hepatic attenuation suggests scarring related to an indeterminate insult. Correlate with clinical history and consider further evaluation with or multiphase pre and postcontrast MRI. 3. Cholelithiasis. Labs Labs: Laboratory Results - last 24 hr 08/24/25 08/24/25 08/24/25 11:36 16:53 23:27 WBC RBC Hgb Hct MCV MCH MCHC RDW Plt Count MPV Sodium Potassium Chloride Carbon Dioxide Anion Gap BUN Creatinine Estim Creat Clear Calc Estimated GFR Glucose POC Capillary Glucose 277 H 232 H 205 H Calcium 08/25/25 08/25/25 05:25 05:26 WBC 5.7 RBC 4.08 L Hgb 11.3 L Hct 37.1 MCV 90.9 MCH 27.7 MCHC 30.5 L RDW 15.4 H Plt Count 224 MPV 11.4 H Sodium 136 L Potassium 4.4 Chloride 111 H Carbon Dioxide 17 L Anion Gap 8 BUN 14 Creatinine 0.68 L Estim Creat Clear Calc 104 Estimated GFR > 60 Glucose 177 H POC Capillary Glucose 183 H Calcium 8.3 L
[2025-08-25] MEDS: ENOXAPARIN 40 MG/0.4 ML SYRINGE SUB-Q (09:10)
[2025-08-25] MEDS: NYSTATIN 100,000 UNITS/ML SUSP 5 ML ORAL.SUSP PO ×4 (09:10→21:10)
[2025-08-25] MEDS: GABAPENTIN 400 MG CAPSULE 1200 MG BY MOUTH ×3 (09:10→17:08)
[2025-08-25] MEDS: oxyCODONE (*CRX) 5 MG/5 ML ORAL SOLN IR 20 MG PO ×3 (09:10→23:25)
[2025-08-25] MEDS: INSULIN GLARGINE (*BKC) 100 UNITS/ML 12 UNITS SUB-Q ×2 (09:11→17:10)
--- NOTE | 2025-08-25 12:23 | P.PNIM_ITS ---
Progress Note: A&P Assessment and Plan (1) Diabetes: Qualifiers: Diabetes mellitus type: type 2 Diabetes mellitus buttermaker helper insulin use: with buttermaker helper use Diabetes mellitus complication status: without complication Qualified Code(s): E11.9 - Type 2 diabetes mellitus without complications; Z79.4 - custodial (current) use of insulin Code(s): E11.9 - Type 2 diabetes mellitus without complications Status: Chronic Assessment and Plan: - last HgbA1c - 7.5 - Increased lantus to 12u BID. Continue high dose SSI. - POCT glucose qACHS - hypoglycemia management protocol (2) History of repair of hiatal hernia: Code(s): Z98.890 - Other specified postprocedural states; Z87.19 - Personal history of other diseases of the digestive system Status: Resolved Assessment and Plan: - Status post robotic laparoscopic repair of large paraesophageal hiatal hernia 08/03/25 - Postoperative nausea, vomiting/dysphagia - Upper GI series: Stenosis with delayed passage of contrast at the gastroesophageal junction likely related to a patient reported recent Sera fundoplication with lumen measuring up to 2.5 mm in maximal diameter and with pooling of contrast the more proximal mid to distal esophagus. - CT A/P with postoperative changes, 8.9 x 6.5 cm likely complex fluid collection in the inferior mediastinum the left of the esophagus in the region of the previously herniated stomach most likely representing a postoperative hematoma. - management per primary - planning to start clear liquids today - Pain control, antiemetics - maintenance IV fluids (3) Dysphagia: Qualifiers: Dysphagia type: esophageal phase Qualified Code(s): R13.19 - Other dysphagia Code(s): R13.10 - Dysphagia, unspecified Status: Chronic Assessment and Plan: - as above (4) Abnormal urinalysis: Code(s): R82.90 - Unspecified abnormal findings in urine Status: Acute Assessment and Plan: - UA with positive nitrates, 2+ LE, 21-50 WBC, 4+ bacteria, but moderate squamous cells - urine culture with no growth - IV Rocephin stopped Plan Code status: Full DVT prophylaxis: Lovenox Disposition: Per primary team Subjective Date/time seen: 08/25/25 12:23 Interval history: 64 year old female with history of asthma, HTN, type 2 diabetes, obesity, right BKA with chronic neuropathic pain, and recently underwent robotic laparoscopic repair large paraesophageal hiatal hernia with fundoplasty and fundopexy by Dr. Hernandez on 08/03/25, presenting with worsening nausea, vomiting. Patient seen and examined at bedside. Doing well with full liquids. Looking forward to discharging soon. Review of Systems Review of Systems: All systems reviewed & are unremarkable except as noted in HPI and below Exam Narrative: General: NAD, obese Eyes: EOMI ENT: neck supple Cardiovascular: Regular rate and rhythm Respiratory: Clear to auscultation, respirations even and unlabored on RA Gastrointestinal: Soft, non tender Genitourinary: no suprapubic tenderness Musculoskeletal: No edema. R BKA. Skin: warm, dry Neuro: Alert. Psych: Mood appropriate Objective Data Vital Signs Vital Signs: Vital Signs - 24 hr 08/24/25 15:33 08/24/25 20:55 08/24/25 21:20 Temperature 97.4 F L 97.7 F Pulse Rate 55 L 54 L Respiratory Rate 18 16 Blood Pressure 140/76 148/75 H Pulse Oximetry 97 96 Oxygen Delivery Room Air 08/25/25 05:34 08/25/25 09:10 Temperature 98.2 F Pulse Rate 54 L Respiratory Rate 16 Blood Pressure 143/77 H Pulse Oximetry 97 Oxygen Delivery Room Air Intake/Output Intake/Output: Intake & Output 08/22/25 08/23/25 08/24/25 08/25/25 23:59 23:59 23:59 23:59 Intake Total 2050.0 2000 4052 600 Output Total 400 1100 700 600 Balance 1650.0 900 3352 0 Meds/Results Medications: Active Medications Generic Name Dose Route Start Last Admin Trade Name Freq PRN Reason Stop Dose Admin Acetaminophen 650 mg 08/21/25 09:48 Acetaminophen Elixir 325 Mg/10.15 Ml Udc PO Q4H PRN Mild Pain (1-3) or Fever Dextrose 12.5 gm 08/21/25 13:21 Dextrose 50% 25 Gm/50 Ml Syringe IV PUSH PRN PRN Hypoglycemia Protocol Enoxaparin Sodium 40 mg 08/21/25 09:55 08/25/25 09:10 Enoxaparin 40 Mg/0.4 Ml Syringe SUB-Q 40 mg DAILY AIDAN Administration Gabapentin 1,200 mg 08/21/25 13:00 08/25/25 09:10 Gabapentin 400 Mg Capsule BY MOUTH 1,200 mg TID AIDAN Administration Glucagon 1 mg 08/21/25 13:21 Glucagon For Inj 1 Mg Vial IM PRN PRN Hypoglycemia Protocol Glucose 15 gm 08/21/25 13:21 Glucose Oral Gel 15 Gm Of Glucse In 37.5 Gm Tube PO PRN PRN Hypoglycemia Protocol Hydralazine HCl 10 mg 08/21/25 19:21 Hydralazine Hcl 20 Mg/Ml Vial IV PUSH Q8H PRN bp>160/90 Hydrocortisone Sodium Succinate 100 mg 08/25/25 18:00 Hydrocortisone Sodium Succinate 100 Mg/2 Ml Vial IV PUSH Q12H AIDAN Dextrose 1,000 mls @ 100 mls/hr 08/21/25 13:21 Dextrose 5% 1,000 Ml IVPB PRN PRN Hypoglycemia Protocol Insulin Aspart 4 - 8 units 08/21/25 18:00 08/25/25 05:29 Insulin Aspart (*Bkc) 100 Units/Ml SUB-Q Not Given Q6HR [facility] Protocol Insulin Glargine 12 units 08/24/25 21:00 08/25/25 09:11 Insulin Glargine (*Bkc) 100 Units/Ml SUB-Q 12 units BID AIDAN Administration Nystatin 5 ml 08/21/25 13:00 08/25/25 09:10 Nystatin 100,000 Units/Ml Susp 5 Ml Oral.Susp PO 5 ml QID AIDAN Administration Oxycodone HCl 15 mg 08/22/25 10:49 08/23/25 08:46 Oxycodone (*Crx) 5 Mg/5 Ml Oral Soln Ir PO 15 mg Q6H PRN Administration Pain Rated 4-6 Oxycodone HCl 20 mg 08/22/25 10:49 08/25/25 09:10 Oxycodone (*Crx) 5 Mg/5 Ml Oral Soln Ir PO 20 mg Q6H PRN Administration Pain Rated 7-10 Polyethylene Glycol 17 gm 08/21/25 09:00 08/25/25 09:15 Polyethylene Glycol 3350 17 Gm Powd.Pack PO Not Given QAM [facility] Prochlorperazine Edisylate 10 mg 08/21/25 12:11 08/23/25 08:48 Prochlorperazine Edisylate 10 Mg/2 Ml Vial IV PUSH 10 mg Q6H PRN Administration Nausea And Vomiting Radiology Results: ITS Impressions Upper GI Series 08/21/25 11:09 IMPRESSION: 1. Stenosis with delayed passage of contrast at the gastroesophageal junction likely related to a patient reported recent Sera fundoplication with lumen measuring up to 2.5 mm in maximal diameter and with pooling of contrast the more proximal mid to distal esophagus. Abdomen CT 08/21/25 14:37 IMPRESSION: 1. Postoperative change of interval hiatal hernia repair with likely Sera fundoplication. There is an 8.9 x 6.5 cm likely complex fluid collection in the inferior mediastinum the left of the esophagus in the region of the previously herniated stomach most likely representing a postoperative hematoma. Differential would include abscess although there is no surrounding inflammatory stranding to more specifically suggest this. 2. Indeterminate 1.5 similar hyperdense lesion at the dome of liver in the region of peripheral wedge-shaped region of decreased hepatic attenuation suggests scarring related to an indeterminate insult. Correlate with clinical history and consider further evaluation with or multiphase pre and postcontrast MRI. 3. Cholelithiasis. Abdomen X-Ray 08/25/25 07:44 IMPRESSION: 1: No acute abdominal abnormality identified. Labs Labs: Laboratory Results - last 24 hr 08/24/25 08/24/25 08/25/25 16:53 23:27 05:25 WBC RBC Hgb Hct MCV MCH MCHC RDW Plt Count MPV Sodium Potassium Chloride Carbon Dioxide Anion Gap BUN Creatinine Estim Creat Clear Calc Estimated GFR Glucose POC Capillary Glucose 232 H 205 H 183 H Calcium 08/25/25 05:26 WBC 5.7 RBC 4.08 L Hgb 11.3 L Hct 37.1 MCV 90.9 MCH 27.7 MCHC 30.5 L RDW 15.4 H Plt Count 224 MPV 11.4 H Sodium 136 L Potassium 4.4 Chloride 111 H Carbon Dioxide 17 L Anion Gap 8 BUN 14 Creatinine 0.68 L Estim Creat Clear Calc 104 Estimated GFR > 60 Glucose 177 H POC Capillary Glucose Calcium 8.3 L Quality VTE Prophylaxis VTE prophylaxis: pharmacologic ordered
[2025-08-25] MEDS: INSULIN ASPART (*BKC) 100 UNITS/ML SUB-Q ×2 (13:06→23:22)
[2025-08-25 14:00] VITALS: BP 162/78; PULSE 50; RESP 18; TEMP 36.7; O2SAT 97
[2025-08-25 22:00] VITALS: BP 166/81; PULSE 54; RESP 18; TEMP 37; O2SAT 98
[2025-08-26 05:55] VITALS: BP 144/79; PULSE 46; RESP 18; TEMP 36.4; O2SAT 98
[2025-08-26] MEDS: HYDROCORTISONE SODIUM SUCCINATE 100 MG/2 ML VIAL IV PUSH (05:58)
[2025-08-26] MEDS: oxyCODONE (*CRX) 5 MG/5 ML ORAL SOLN IR 20 MG PO ×2 (05:59→13:26)
[2025-08-26] MEDS: NYSTATIN 100,000 UNITS/ML SUSP 5 ML ORAL.SUSP PO ×2 (09:27→13:31)
[2025-08-26] MEDS: ENOXAPARIN 40 MG/0.4 ML SYRINGE SUB-Q (09:27)
[2025-08-26] MEDS: INSULIN GLARGINE (*BKC) 100 UNITS/ML 12 UNITS SUB-Q (09:27)
[2025-08-26] MEDS: GABAPENTIN 400 MG CAPSULE 1200 MG BY MOUTH ×2 (09:27→13:31)
--- NOTE | 2025-08-26 11:06 | P.PN_ITS ---
Progress Note: A&P Assessment and Plan (1) History of repair of hiatal hernia: Code(s): Z98.890 - Other specified postprocedural states; Z87.19 - Personal history of other diseases of the digestive system Status: Chronic Assessment and Plan: Status post laparoscopic large PerFix the hiatal hernia repair about 3 weeks ago. Readmitted with dysphagia which responded to steroids and bowel rest. She is feeling good now is eating well without any dysphagia. Stop PPI sent home. Continue nystatin swish and swallow for another 10 days. No need for further steroids at home. Patient follow-up in the office in 1 to 2 weeks. Subjective Date/time seen: 08/26/25 11:06 Interval history: Patient feels good today. Tolerating her diet without difficulty. She wants to go home today. Exam GI: Other: Abdomen obese but soft. No tenderness. Benign exam. Objective Data Vital Signs Vital Signs: Vital Signs - 24 hr 08/25/25 14:00 08/25/25 20:00 08/25/25 22:00 Temperature 36.7 C 37.0 C Pulse Rate 50 L 54 L Respiratory Rate 18 18 Blood Pressure 162/78 H 166/81 H Pulse Oximetry 97 98 Oxygen Delivery Room Air Fraction of Inspired Oxygen 21 08/26/25 05:55 Temperature 36.4 C Pulse Rate 46 L Respiratory Rate 18 Blood Pressure 144/79 H Pulse Oximetry 98 Oxygen Delivery Fraction of Inspired Oxygen Intake/Output Intake/Output: Intake & Output 08/23/25 08/24/25 08/25/25 08/26/25 23:59 23:59 23:59 23:59 Intake Total 1999 4052 4480 680 Output Total 2578 441 1449 2800 Balance 900 3352 1780 -2120 Meds/Results Medications: Active Medications Generic Name Dose Route Start Last Admin Trade Name Freq PRN Reason Stop Dose Admin Acetaminophen 650 mg 08/21/25 09:48 Acetaminophen Elixir 325 Mg/10.15 Ml Udc PO Q4H PRN Mild Pain (1-3) or Fever Dextrose 12.5 gm 08/21/25 13:21 Dextrose 50% 25 Gm/50 Ml Syringe IV PUSH PRN PRN Hypoglycemia Protocol Enoxaparin Sodium 40 mg 08/21/25 09:55 08/26/25 09:27 Enoxaparin 40 Mg/0.4 Ml Syringe SUB-Q 40 mg DAILY AIDAN Administration Gabapentin 1,200 mg 08/21/25 13:00 08/26/25 09:27 Gabapentin 400 Mg Capsule BY MOUTH 1,200 mg TID AIDAN Administration Glucagon 1 mg 08/21/25 13:21 Glucagon For Inj 1 Mg Vial IM PRN PRN Hypoglycemia Protocol Glucose 15 gm 08/21/25 13:21 Glucose Oral Gel 15 Gm Of Glucse In 37.5 Gm Tube PO PRN PRN Hypoglycemia Protocol Hydralazine HCl 10 mg 08/21/25 19:21 Hydralazine Hcl 20 Mg/Ml Vial IV PUSH Q8H PRN bp>160/90 Hydrocortisone Sodium Succinate 100 mg 08/25/25 18:00 08/26/25 05:58 Hydrocortisone Sodium Succinate 100 Mg/2 Ml Vial IV PUSH 100 mg Q12H AIDAN Administration Dextrose 1,000 mls @ 100 mls/hr 08/21/25 13:21 Dextrose 5% 1,000 Ml IVPB PRN PRN Hypoglycemia Protocol Insulin Aspart 4 - 8 units 08/21/25 18:00 08/26/25 06:28 Insulin Aspart (*Bkc) 100 Units/Ml SUB-Q Not Given Q6HR [facility] Protocol Insulin Glargine 12 units 08/24/25 21:00 08/26/25 09:27 Insulin Glargine (*Bkc) 100 Units/Ml SUB-Q 12 units BID AIDAN Administration Nystatin 5 ml 08/21/25 13:00 08/26/25 09:27 Nystatin 100,000 Units/Ml Susp 5 Ml Oral.Susp PO 5 ml QID AIDAN Administration Oxycodone HCl 15 mg 08/22/25 10:49 08/23/25 08:46 Oxycodone (*Crx) 5 Mg/5 Ml Oral Soln Ir PO 15 mg Q6H PRN Administration Pain Rated 4-6 Oxycodone HCl 20 mg 08/22/25 10:49 08/26/25 05:59 Oxycodone (*Crx) 5 Mg/5 Ml Oral Soln Ir PO 20 mg Q6H PRN Administration Pain Rated 7-10 Polyethylene Glycol 17 gm 08/21/25 09:00 08/26/25 09:29 Polyethylene Glycol 3350 17 Gm Powd.Pack PO Not Given QAM [facility] Prochlorperazine Edisylate 10 mg 08/21/25 12:11 08/23/25 08:48 Prochlorperazine Edisylate 10 Mg/2 Ml Vial IV PUSH 10 mg Q6H PRN Administration Nausea And Vomiting Radiology Results: ITS Impressions Upper GI Series 08/21/25 11:09 IMPRESSION: 1. Stenosis with delayed passage of contrast at the gastroesophageal junction likely related to a patient reported recent Sera fundoplication with lumen measuring up to 2.5 mm in maximal diameter and with pooling of contrast the more proximal mid to distal esophagus. Abdomen CT 08/21/25 14:37 IMPRESSION: 1. Postoperative change of interval hiatal hernia repair with likely Sera fundoplication. There is an 8.9 x 6.5 cm likely complex fluid collection in the inferior mediastinum the left of the esophagus in the region of the previously herniated stomach most likely representing a postoperative hematoma. Differential would include abscess although there is no surrounding inflammatory stranding to more specifically suggest this. 2. Indeterminate 1.5 similar hyperdense lesion at the dome of liver in the region of peripheral wedge-shaped region of decreased hepatic attenuation suggests scarring related to an indeterminate insult. Correlate with clinical history and consider further evaluation with or multiphase pre and postcontrast MRI. 3. Cholelithiasis. Abdomen X-Ray 08/25/25 07:44 IMPRESSION: 1: No acute abdominal abnormality identified. Labs Labs: Laboratory Results - last 24 hr 08/25/25 08/25/25 08/25/25 12:57 17:13 23:20 POC Capillary Glucose 220 H 166 H 244 H 08/26/25 08/26/25 06:26 09:24 POC Capillary Glucose 102 153 H
--- NOTE | 2025-08-26 12:35 | ECG_ITS ---
Test Date: 2025-08-26 14:10:31 Measurements Intervals [place] Rate: 49 P: 19 VA: 175 QRS: 5 QRSD: 72 T: 14 QT: 439 QTc: 400 Interpretive Statements SINUS BRADYCARDIA LOW QRS VOLTAGE IN PRECORDIAL LEADS CONSIDER INFERIOR INFARCT, AGE INDETERMINATE BASELINE ARTIFACT- I, II, III, AVR, AVL, AVF ABNORMAL ECG Compared to ECG 08/05/2025 11:35:29 HEART RATE HAS DECREASED Electronically Signed On 08-26-2025 14:29:12 CDT by Que Ortez D.O.
--- NOTE | 2025-08-26 12:37 | P.PNIM_ITS ---
Progress Note: A&P Assessment and Plan (1) Diabetes: Qualifiers: Diabetes mellitus type: type 2 Diabetes mellitus hot man insulin use: with hot man use Diabetes mellitus complication status: without complication Qualified Code(s): E11.9 - Type 2 diabetes mellitus without complications; Z79.4 - care home (current) use of insulin Code(s): E11.9 - Type 2 diabetes mellitus without complications Status: Chronic Assessment and Plan: - last HgbA1c - 7.5 - Increased lantus to 12u BID. Continue high dose SSI. - POCT glucose qACHS - hypoglycemia management protocol - resume home insulin regimen on discharge (2) History of repair of hiatal hernia: Code(s): Z98.890 - Other specified postprocedural states; Z87.19 - Personal history of other diseases of the digestive system Status: Resolved Assessment and Plan: - Status post robotic laparoscopic repair of large paraesophageal hiatal hernia 08/03/25 - Postoperative nausea, vomiting/dysphagia - Upper GI series: Stenosis with delayed passage of contrast at the gastroesophageal junction likely related to a patient reported recent Sera fundoplication with lumen measuring up to 2.5 mm in maximal diameter and with pooling of contrast the more proximal mid to distal esophagus. - CT A/P with postoperative changes, 8.9 x 6.5 cm likely complex fluid collection in the inferior mediastinum the left of the esophagus in the region of the previously herniated stomach most likely representing a postoperative hematoma. - management per primary - planning to start clear liquids today - Pain control, antiemetics - maintenance IV fluids (3) Dysphagia: Qualifiers: Dysphagia type: esophageal phase Qualified Code(s): R13.19 - Other dysphagia Code(s): R13.10 - Dysphagia, unspecified Status: Chronic Assessment and Plan: - as above (4) Abnormal urinalysis: Code(s): R82.90 - Unspecified abnormal findings in urine Status: Acute Assessment and Plan: - UA with positive nitrates, 2+ LE, 21-50 WBC, 4+ bacteria, but moderate squamous cells - urine culture with no growth - IV Rocephin stopped (5) Bradycardia: Code(s): R00.1 - Bradycardia, unspecified Status: Acute Assessment and Plan: - HR high 40s-50s. BP stable. Denies lightheadedness or dizziness. - check EKG. Ok to discharge patient if EKG is sinus rhythm. Plan Code status: Full DVT prophylaxis: Lovenox Disposition: Per primary team Subjective Date/time seen: 08/26/25 12:37 Interval history: 64 year old female with history of asthma, HTN, type 2 diabetes, obesity, right BKA with chronic neuropathic pain, and recently underwent robotic laparoscopic repair large paraesophageal hiatal hernia with fundoplasty and fundopexy by Dr. Hernandez on 08/03/25, presenting with worsening nausea, vomiting. Patient seen and examined at bedside. Doing well on current diet. Looking forward to discharging. Patient is medically stable from a hospital medicine standpoint as long as EKG today shows sinus rhythm in setting of bradycardia. Review of Systems Review of Systems: All systems reviewed & are unremarkable except as noted in HPI and below Exam Narrative: General: NAD, obese Eyes: EOMI ENT: neck supple Cardiovascular: bradycardic Respiratory: Clear to auscultation, respirations even and unlabored on RA Gastrointestinal: Soft, non tender Genitourinary: no suprapubic tenderness Musculoskeletal: No edema. R BKA. Skin: warm, dry Neuro: Alert. Psych: Mood appropriate Objective Data Vital Signs Vital Signs: Vital Signs - 24 hr 08/25/25 14:00 08/25/25 20:00 08/25/25 22:00 Temperature 98.0 F 98.6 F Pulse Rate 50 L 54 L Respiratory Rate 18 18 Blood Pressure 162/78 H 166/81 H Pulse Oximetry 97 98 Oxygen Delivery Room Air Fraction of Inspired Oxygen 21 08/26/25 05:55 Temperature 97.6 F Pulse Rate 46 L Respiratory Rate 18 Blood Pressure 144/79 H Pulse Oximetry 98 Oxygen Delivery Fraction of Inspired Oxygen Intake/Output Intake/Output: Intake & Output 08/23/25 08/24/25 08/25/25 08/26/25 23:59 23:59 23:59 23:59 Intake Total 1999 4052 4480 680 Output Total 3177 731 0928 2800 Balance 900 3352 1780 -2120 Meds/Results Medications: Active Medications Generic Name Dose Route Start Last Admin Trade Name Freq PRN Reason Stop Dose Admin Acetaminophen 650 mg 08/21/25 09:48 Acetaminophen Elixir 325 Mg/10.15 Ml Udc PO Q4H PRN Mild Pain (1-3) or Fever Dextrose 12.5 gm 08/21/25 13:21 Dextrose 50% 25 Gm/50 Ml Syringe IV PUSH PRN PRN Hypoglycemia Protocol Enoxaparin Sodium 40 mg 08/21/25 09:55 08/26/25 09:27 Enoxaparin 40 Mg/0.4 Ml Syringe SUB-Q 40 mg DAILY AIDAN Administration Gabapentin 1,200 mg 08/21/25 13:00 08/26/25 09:27 Gabapentin 400 Mg Capsule BY MOUTH 1,200 mg TID AIDAN Administration Glucagon 1 mg 08/21/25 13:21 Glucagon For Inj 1 Mg Vial IM PRN PRN Hypoglycemia Protocol Glucose 15 gm 08/21/25 13:21 Glucose Oral Gel 15 Gm Of Glucse In 37.5 Gm Tube PO PRN PRN Hypoglycemia Protocol Hydralazine HCl 10 mg 08/21/25 19:21 Hydralazine Hcl 20 Mg/Ml Vial IV PUSH Q8H PRN bp>160/90 Hydrocortisone Sodium Succinate 100 mg 08/25/25 18:00 08/26/25 05:58 Hydrocortisone Sodium Succinate 100 Mg/2 Ml Vial IV PUSH 100 mg Q12H AIDAN Administration Dextrose 1,000 mls @ 100 mls/hr 08/21/25 13:21 Dextrose 5% 1,000 Ml IVPB PRN PRN Hypoglycemia Protocol Insulin Aspart 4 - 8 units 08/21/25 18:00 08/26/25 06:28 Insulin Aspart (*Bkc) 100 Units/Ml SUB-Q Not Given Q6HR [facility] Protocol Insulin Glargine 12 units 08/24/25 21:00 08/26/25 09:27 Insulin Glargine (*Bkc) 100 Units/Ml SUB-Q 12 units BID AIDAN Administration Nystatin 5 ml 08/21/25 13:00 08/26/25 09:27 Nystatin 100,000 Units/Ml Susp 5 Ml Oral.Susp PO 5 ml QID AIDAN Administration Oxycodone HCl 15 mg 08/22/25 10:49 08/23/25 08:46 Oxycodone (*Crx) 5 Mg/5 Ml Oral Soln Ir PO 15 mg Q6H PRN Administration Pain Rated 4-6 Oxycodone HCl 20 mg 08/22/25 10:49 08/26/25 05:59 Oxycodone (*Crx) 5 Mg/5 Ml Oral Soln Ir PO 20 mg Q6H PRN Administration Pain Rated 7-10 Polyethylene Glycol 17 gm 08/21/25 09:00 08/26/25 09:29 Polyethylene Glycol 3350 17 Gm Powd.Pack PO Not Given QAM AIDAN Prochlorperazine Edisylate 10 mg 08/21/25 12:11 08/23/25 08:48 Prochlorperazine Edisylate 10 Mg/2 Ml Vial IV PUSH 10 mg Q6H PRN Administration Nausea And Vomiting Radiology Results: ITS Impressions Upper GI Series 08/21/25 11:09 IMPRESSION: 1. Stenosis with delayed passage of contrast at the gastroesophageal junction likely related to a patient reported recent Sera fundoplication with lumen measuring up to 2.5 mm in maximal diameter and with pooling of contrast the more proximal mid to distal esophagus. Abdomen CT 08/21/25 14:37 IMPRESSION: 1. Postoperative change of interval hiatal hernia repair with likely Sera fundoplication. There is an 8.9 x 6.5 cm likely complex fluid collection in the inferior mediastinum the left of the esophagus in the region of the previously herniated stomach most likely representing a postoperative hematoma. Differential would include abscess although there is no surrounding inflammatory stranding to more specifically suggest this. 2. Indeterminate 1.5 similar hyperdense lesion at the dome of liver in the region of peripheral wedge-shaped region of decreased hepatic attenuation suggests scarring related to an indeterminate insult. Correlate with clinical history and consider further evaluation with or multiphase pre and postcontrast MRI. 3. Cholelithiasis. Abdomen X-Ray 08/25/25 07:44 IMPRESSION: 1: No acute abdominal abnormality identified. Labs Labs: Laboratory Results - last 24 hr 08/25/25 08/25/25 08/25/25 12:57 17:13 23:20 POC Capillary Glucose 220 H 166 H 244 H 08/26/25 08/26/25 06:26 09:24 POC Capillary Glucose 102 153 H Quality VTE Prophylaxis VTE prophylaxis: pharmacologic ordered
[2025-08-26 13:26] VITALS: BP 144/73; PULSE 51; RESP 18; TEMP 36.6; O2SAT 97
--- NOTE | 2025-08-29 15:51 | P.DS_ITS ---
DS: Admitting Diagnosis Discharge Date 08/26/25 Admitting Diagnosis Vomiting Hx of hiatal hernia repair Diabetes Hx right BKA Chronic narcotic dependence Asthma DS: Discharge Diagnosis Discharge Diagnosis (1) Hx of right BKA: Code(s): Z89.511 - Acquired absence of right leg below knee Status: Chronic (2) Asthma: Qualifiers: Asthma severity: moderate Asthma persistence: persistent Asthma complication type: unspecified Qualified Code(s): J45.40 - Moderate persistent asthma, uncomplicated Code(s): J45.909 - Unspecified asthma, uncomplicated Status: Chronic (3) History of repair of hiatal hernia: Code(s): Z98.890 - Other specified postprocedural states; Z87.19 - Personal history of other diseases of the digestive system Status: Chronic (4) Chronic narcotic dependence: Code(s): F11.20 - Opioid dependence, uncomplicated Status: Chronic (5) Diabetes: Qualifiers: Diabetes mellitus type: type 2 Diabetes mellitus reefer engineer insulin use: with reefer engineer use Diabetes mellitus complication status: without complication Qualified Code(s): E11.9 - Type 2 diabetes mellitus without complications; Z79.4 - [facility] (current) use of insulin Code(s): E11.9 - Type 2 diabetes mellitus without complications Status: Chronic (6) Dysphagia: Qualifiers: Dysphagia type: esophageal phase Qualified Code(s): R13.19 - Other dysphagia Code(s): R13.10 - Dysphagia, unspecified Status: Chronic (7) Thrush, oral: Code(s): B37.0 - Candidal stomatitis Status: Acute DS: Summary Hospital Course Reason for hospitalization: This is a 64-year-old woman whoe recently underwent robotic laparoscopic repair large paraesophageal hiatal hernia with fundoplasty and fundopexy by Dr. Hernandez on 08/03/25. She was having issues with regurgitation and dysphagia postoperatively. She had been vomiting and having difficulty with keeping any liquids or solids down, which prompted her to come into the ED for evaluation. She was admitted for further workup and treatment of postoperative vomiting following hiatal hernia repair. Hospital Course: Patient was started on IV steroids and made NPO. Water-soluble esophagram with upper GI showed stenosis with delayed passage of contrast at the GE junction likely related to reported recent Sera fundoplication with lumen measuring up to 2.5 mm in maximal diameter. On a follow-up x-ray showed gastric distension. She subsequently had a CT scan of the abdomen due to gastric distention on the x-rays, that showed postoperative changes of the hiatal hernia repair with the fluid collection in the region of the previously herniated stomach, but no other significant findings. After admission she was also found to have thrush, which was treated with Nystatin swish and swallow. UA was also abnormal on admission, but urine culture was negative and antibiotics stopped. She had no symptoms of UTI. Hospitalist was consulted for medical management. Her pain medications were adjusted to improve her pain control. Dysphasia improved and she was slowly advanced to a liquid diet. She had serial abdominal x-rays, which eventually showed resolution of the gastric distension. Her diet was advanced to a low-fiber diet and she was stable to discharge by 08/26/2025 after tolerating a low-fiber diet. Steroids were stopped on discharge. She will follow up as an outpatient with Dr. Hernandez Status at Discharge Functional status at discharge: independent ambulation Overall status at discharge: patient is back to baseline Time Spent with Patient Time attestation: Total time spent providing and/or coordinating discharge services: Time spent: Less than 30 minutes DS: Data Imaging Radiologist's impression: ITS Impressions Upper GI Series 08/21/25 11:09 IMPRESSION: 1. Stenosis with delayed passage of contrast at the gastroesophageal junction likely related to a patient reported recent Sera fundoplication with lumen measuring up to 2.5 mm in maximal diameter and with pooling of contrast the more proximal mid to distal esophagus. Abdomen X-Ray 08/21/25 11:19 IMPRESSION: 1. Nonspecific gaseous distention of the stomach. No dilated loops of gas-filled small bowel to suggest obstruction. Abdomen CT 08/21/25 14:37 IMPRESSION: 1. Postoperative change of interval hiatal hernia repair with likely Sera fundoplication. There is an 8.9 x 6.5 cm likely complex fluid collection in the inferior mediastinum the left of the esophagus in the region of the previously herniated stomach most likely representing a postoperative hematoma. Differential would include abscess although there is no surrounding inflammatory stranding to more specifically suggest this. 2. Indeterminate 1.5 similar hyperdense lesion at the dome of liver in the region of peripheral wedge-shaped region of decreased hepatic attenuation suggests scarring related to an indeterminate insult. Correlate with clinical history and consider further evaluation with or multiphase pre and postcontrast MRI. 3. Cholelithiasis. Abdomen X-Ray 08/23/25 07:41 IMPRESSION: 1: No acute abdominal abnormality identified. Abdomen X-Ray 08/24/25 09:13 IMPRESSION: 1. Mild gaseous gastric distention. 2. Unchanged persistent enteric contrast throughout colon. 3. No residual enteric contrast within stomach or small bowel. Abdomen X-Ray 08/25/25 07:44 IMPRESSION: 1: No acute abdominal abnormality identified. Discharge Plan Discharge Attending physician on discharge: Blake Hernandez Consulting providers: Benita Aragon; Kaiden Johnson; Dasha Stephens; Fawn Salazar; Dinorah Sanabria; Que Ortez; Rufino Lim; Tylor Forman; Louis Sutton Discharging Clinician: Aubrey Dewitt Patient Disposition: Home Activity: may shower and as tolerated Diet: diabetic and low fiber Wound Care Instructions: incision open to air Discharge Instructions: * Activity as tolerated * Be very careful with swallowing pills-try to only take 1 at a time and wait before taking another * Chew food well, take small bites, take time between bites * Okay to bathe or shower as your normal routine Patient Instructions: Antibiotic Form Patient Language: Kinyarwanda Stand Alone Forms: General Discharge Information Follow-up/Referrals: Blake Hernandez MD [Physician, General Surgery] - 2 Weeks Lakshmi Ramos APRN [Primary Care Provider, [facility]] - 1 Week Discharge Medications: New acetaminophen [Nortemp] 160 mg/5 mL Suspension 650 mg PO Q4H PRN (Reason: Mild Pain (1-3) Or Fever) Qty: 300 0RF nystatin 100,000 unit/mL Suspension 5 ml PO QID Qty: 250 0RF polyethylene glycol 3350 [Miralax] 17 gram Powder In Packet 17 g PO QAM Qty: 30 0RF Continued (DME) blood-glucose meter [[place] Glucose Monitoring] Kit See Rx Instructions .Route Qty: 1 0RF Rx Instructions: As directed loratadine [Claritin] 10 mg tablet 10 mg PO DAILY Qty: 30 2RF (DME) blood-glucose meter Misc See Rx Instructions .Route Qty: 1 0RF Rx Instructions: As directed check blood sugar tid gabapentin 600 mg tablet See Rx Instructions .ROUTE .COMPLEX Qty: 180 6RF Dose Instruction: TAKE 2 TABLETS BY MOUTH THREE TIMES DAILY Rx Instructions: TAKE 2 TABLETS BY MOUTH THREE TIMES DAILY azelastine 137 mcg (0.1 %) spray,non-aerosol 1 spray intranasal Q12H PRN (Reason: allergies) Patient Comments: Says takes as needed. Rx Instructions: administer into each nostril magnesium 250 mg Tablet 250 mg PO DAILY albuterol sulfate 90 mcg/actuation HFA aerosol inhaler 2 puff inhalation Q6-8H PRN (Reason: shortness of breath or wheezing) (DME) pen needle, diabetic [BD Ultra-Fine Mini Pen Needle] 31 gauge x 3/16 needle See Rx Instructions .ROUTE .COMPLEX Qty: 100 3RF Dose Instruction: DIRECTED WITH LANTUS TWICE DAILY Rx Instructions: DIRECTED WITH LANTUS TWICE DAILY naloxone [Narcan] 4 mg/actuation spray,non-aerosol 4 mg intranasal Q2-3M PRN (Reason: opioid overdose) Qty: 2 0RF Rx Instructions: spray 1 dose into ONE nostril; alternate nostrils w each dose until help arrives Jardiance 25 mg tablet See Rx Instructions .ROUTE .COMPLEX Qty: 90 3RF Dose Instruction: TAKE 1 TABLET BY MOUTH EVERY DAY Rx Instructions: TAKE 1 TABLET BY MOUTH EVERY DAY rosuvastatin 5 mg tablet See Rx Instructions .ROUTE .COMPLEX Qty: 90 3RF Dose Instruction: TAKE 1 TABLET BY MOUTH EVERY DAY IN THE EVENING Rx Instructions: TAKE 1 TABLET BY MOUTH EVERY DAY IN THE EVENING ([facility]) lancets [CareTouch Twist Lancet] 33 gauge misc See Rx Instructions .Route Qty: 300 3RF Rx Instructions: As directed, 3 x a day (DME) CareTouch Test Strip Strip See Rx Instructions .Route Qty: 300 3RF Rx Instructions: As directed 3 times a day insulin glargine [Lantus Solostar U-100 Insulin] 100 unit/mL (3 mL) insulin pen See Rx Instructions subcut .COMPLEX Rx Instructions: 13 units in am and 13 units in pm subcutaneously; alprazolam 0.5 mg tablet 0.5 mg PO TID PRN (Reason: anxiety) Qty: 90 1RF hydrocodone-acetaminophen 10-325 mg tablet 1.5 tablet PO Q8H PRN (Reason: post op pain) Qty: 63 0RF Discontinued hyoscyamine sulfate 0.125 mg tablet 0.125 mg sublingual Q6-8H PRN (Reason: dyspepsia) Qty: 120 5RF ibuprofen 800 mg tablet See Rx Instructions .ROUTE .COMPLEX Qty: 270 3RF Dose Instruction: TAKE 1 TABLET BY MOUTH THREE TIMES DAILY WITH FOOD FOR PAIN Rx Instructions: TAKE 1 TABLET BY MOUTH THREE TIMES DAILY WITH FOOD FOR PAIN ferrous sulfate 325 mg (65 mg iron) tablet,delayed release (DR/EC) See Rx Instructions .ROUTE .COMPLEX Qty: 90 3RF Dose Instruction: TAKE 1 TABLET BY MOUTH DAILY Rx Instructions: TAKE 1 TABLET BY MOUTH DAILY polyethylene glycol 3350 [Miralax] 17 gram/dose powder 17 g PO DAILY PRN (Reason: Constipation) Qty: 510 6RF famotidine 20 mg tablet See Rx Instructions .ROUTE .COMPLEX Qty: 90 3RF Dose Instruction: TAKE 1 TABLET BY MOUTH EVERY DAY Rx Instructions: TAKE 1 TABLET BY MOUTH EVERY DAY ondansetron 4 mg tablet,disintegrating See Rx Instructions .ROUTE .COMPLEX Qty: 20 3RF Dose Instruction: DISSOLVE 1 TABLET IN MOUTH EVERY 6 HOURS NEEDED FOR NAUSEA AND VOMITING Rx Instructions: DISSOLVE 1 TABLET IN MOUTH EVERY 6 HOURS NEEDED FOR NAUSEA AND VOMITING omeprazole 40 mg capsule,delayed release(DR/EC) See Rx Instructions .ROUTE .COMPLEX Qty: 90 3RF Dose Instruction: TAKE 1 CAPSULE BY MOUTH DAILY Rx Instructions: TAKE 1 CAPSULE BY MOUTH DAILY nystatin 100,000 unit/mL suspension See Rx Instructions .ROUTE .COMPLEX Qty: 500 0RF Dose Instruction: USE 10ML BY MOUTH DAILY SWISH AND SWALLOW Rx Instructions: USE 10ML BY MOUTH DAILY SWISH AND SWALLOW Date of admission: 08/23/25 16:28 Primary Care Provider: Lakshmi Ramos Admitting Provider: Blake Hernandez Attending physician on admission: Aubrey Dewitt Condition: Stable Quality VTE Prophylaxis VTE prophylaxis: pharmacologic ordered
== END 2025-08-26 15:02 | disposition home or self-care (01) | DRG 392 ==
LOC: ANHED 08:14 → ANH3MED 09:37
PROVIDERS: Nurse Practitioner Family; Admitting Provider Surgery; Emergency Provider General Practice; PCP Nurse Practitioner Adult Health; Visit Provider Surgery
DX: K91.0 Vomiting following gastrointestinal surgery (principal); K91.870 Postprocedural hematoma of a digestive system organ or structure following a digestive system procedure; B37.0 Candidal stomatitis; K22.2 Esophageal obstruction; R13.19 Other dysphagia; G54.6 Phantom limb syndrome with pain; R82.90 Unspecified abnormal findings in urine; K80.20 Calculus of gallbladder without cholecystitis without obstruction; E11.43 Type 2 diabetes mellitus with diabetic autonomic (poly)neuropathy; K31.84 Gastroparesis; I10 Essential (primary) hypertension; E11.42 Type 2 diabetes mellitus with diabetic polyneuropathy; E11.65 Type 2 diabetes mellitus with hyperglycemia; J45.909 Unspecified asthma, uncomplicated; E66.9 Obesity, unspecified; F41.9 Anxiety disorder, unspecified; R00.1 Bradycardia, unspecified; Z89.511 Acquired absence of right leg below knee; Z68.33 Body mass index [BMI] 33.0-33.9, adult; Z79.4 Long term (current) use of insulin; Z79.891 Long term (current) use of opiate analgesic; Z87.19 Personal history of other diseases of the digestive system
CPT/HCPCS: 36415; 74018; 74150; 74240; 80048; 80053; 81001; 82948; 83690; 85025; 85027; 86140; 87086; 93005; 96365; 96366; 96368; 96372; 96375; 96376; 99285; A9270; G0378; J0696; J0780; J1650; J1720; J1815; J2405; J2470; J3480; J7120

== ENCOUNTER 2025-10-03 13:36 | Outpatient (CLI) | payer OTHER, SELFPAY ==
--- NOTE | ~2025-10-03 | MR_ITS ---
EXAMINATION: MR abdomen wo/w con DATE: 10/03/2025 15:31 INDICATION: Liver mass on prior CT TECHNIQUE: Magnetic resonance imaging (MRI) of the abdomen was performed without and with 20 mL Multihance intravenous contrast. Sequences included coronal T2- weighted SS-FSE, coronal and axial FS 2D-FIESTA, axial STIR FSE, axial T2- weighted SS-FSE, axial T2-weighted FS SS-FSE, axial diffusion-weighted SE, axial dual-echo T1-weighted FSPGR, and axial and coronal T1-weighted LAVA. Postcontrast axial T1-weighted LAVA images were obtained in a time course. Postcontrast coronal T1-weighted LAVA images were obtained. COMPARISON: CT dated 08/21/2025 FINDINGS: Heart size is normal. No pericardial or pleural effusion. Postoperative change of prior Sera fundoplication. There is fluid filling the more proximal mid to distal esophagus. Significant decrease in size of the previously noted likely complex fluid collection situated to the left of the distal esophagus consistent with resolving postoperative hematoma. 1.5 cm T2 hyperintense lesion at the anterior dome of liver which corresponds to the hypodense lesion of concern on prior CT. This lesion demonstrates characteristic peripheral discontiguous puddling of contrast which fills in on delayed imaging consistent with a hemangioma. The previous noted surrounding peripheral wedge-shaped regions of decreased attenuation demonstrate decreased signal intensity on the fat-saturated images and on the post phase images consistent with focal hepatic steatosis. No other suspicious hepatic lesions identified. Multiple low signal intensity gallstones within the otherwise normal-appearing gallbladder. No intra or extrahepatic biliary ductal dilation. Spleen, pancreas, right adrenal gland and bilateral kidneys are normal. Prominent signal dropout at a 2.2 cm left adrenal adenoma. Visualized portions of bowels are unremarkable with no obstruction. Normal appendix. No pathologically enlarged abdominal or upper pelvic lymphadenopathy. Normal bone marrow signal throughout. IMPRESSION: 1. 1.5 cm hepatic hemangioma at the dome of liver which corresponds to the hypodense lesion of concern on prior CT. 2. Interval decrease in size of a now very small residual hematoma at the site of a prior hiatal hernia repair with likely Sera fundoplication. Reviewed, dictated and finalized at location A. PACKER IMPRESSION: 1. 1.5 cm hepatic hemangioma at the dome of liver which corresponds to the hypo dense lesion of concern on prior CT. 2. Interval decrease in size of a now very small residual hematoma at the site of a prior hiatal hernia repair with likely Sera fundoplication.
--- OUTSIDE RECORDS SUMMARY | 2025-10-03 13:44 | XMS_ITS | Encounter Summary ---
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 Microbiology SPECIMEN FROM NASOPHARYNGEAL STRUCTURE / Unknown Collection / Unknown 03/09/2020 8:30 PM CDT 03/10/2020 11:30 AM CDT Narrative [facility] - 03/10/2020 10:11 PM CDT This Real Time RT-PCR assay was developed and its performance characteristics determined by [facility]. This test has been authorized by the Food and Drug administration (FDA)under an Emergency Use Authorization (EUA). This test has been validated in accordance with the FDA's guidance document Policy for Diagnostic Testing in Laboratories Certified to perform High Complexity Testing under CLIA prior to Emergency Use Authorization for Coronavirus Disease-2019 during the Public Health Emergency issued on January 21, 2020. FDA independent review of this validation is pending. This test is only authorized for the duration of time the declaration that circumstances exist justifying the authorization of emergency use of in vitro diagnostic tests for detection of SARS-CoV-2 virus and/or diagnosis of COVID-19 infection under section 564(b)(1) of the Act, 21 U.S.C 360bbb-3 (b)(1), unless the authorization is terminated or revoked sooner. Yosef Luna MD LAB - MICROBIOLOGY ORDERABL ES Final Result [facility] [address] [place] [address], [facility] [phone] documented in this encounter Visit Diagnoses Not on filedocumented in this encounter Care Teams Web Analytics Developer Relationship Specialty Start Date End Date Armen Johns MD [address] [place] [id number] PCP - General 03/09/23 documented as of this encounter
--- OUTSIDE RECORDS SUMMARY | 2025-10-03 13:44 | XMS_ITS | Clinical Summary ---
Author Organization [facility] Address [address] [place] [address] Care Team Providers Care Rn Med Surg Name Role Phone Armen Johns MD Primary Care Provider [phone] Source Comments [facility],non-owned Affiliates and Associated Physician Practices is amultiple site organization consisting of ambulatory clinics and hospital sitesin [place], [place], [place] and [place]. This disclosure is being madepursuant to the Care Everywhere program and may not contain all information available regarding this patient. 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 Gender Identity Not on file Sexual Orientation Not on file Plan of Treatment Health Maintenance Due Date Last Done Comments COLOGUARD (AGES 45-75) - COL ON CA SCREENING 1962 COLON MONITORING 1962 COLONOSCOPY - COLON CA SCREENING 1962 CT COLONOGRAPHY - COLON CA SCREENING 1962 Colorectal Cancer Screening 1962 FIT - COLON CA SCREENING 1962 FLEX SIG - COLON CA SCREENING 1962 LIPID TESTING 1962 MAMMOGRAM 1962 HIV SCREENING 1977 HEPATITIS C SCREENING 12/10/1980 DTAP/TDAP/TD VACCINES (1 - Tdap) 1981 PAP SMEAR 1983 PNEUMOCOCCAL VACCINE 50+ (1 of 1 - PCV) 2012 ZOSTER VACCINE (1 of 2) 2012 DEPRESSION SCREENING 11/23/2024 COVID-19 VACCINE (1 - 2023-2 5 season) 2025 INFLUENZA VACCINE (#1) 2025 Respiratory Syncytial Virus (RSV) Vaccine Pt: or over 60 yrs (1 - 1-dose 75+ series) 2037 HEPATITIS B VACCINE Aged Out No longe r eligible based on patient's age to complete this topic HIB VACCINE Aged Out No longer eligi ble based on patient's age to complete this topic HPV VACCINE Aged Out No longer eligi ble based on patient's age to complete this topic MENINGOCOCCAL (Group B) VACC INE SHARED DECISION-MAKING Aged Out No longer eligibl e based on patient's age to complete this topic MENINGOCOCCAL GROUPS A/C/Y/W VACCINE Aged Out No longer eligible b ased on patient's age to complete this topic Insurance [address] [place] [address] [facility] SELF PAY NO INSURANCE Member Subscriber Plan / Payer (Ef fective for All Dates) Name:Nadja Alarcon Member ID:Not on file Relation to Subscriber:Not on file Name:NADJA PEREZ Subscriber ID:Not on file (Home) Address: [address] [place] [id number] Payer ID:Not on file Group ID:Not on file Type:Self Pay Address: [place], [place] Care Teams Rn Med Surg Relationship Specialty Start Date End Date Armen Johns MD [address] [place] [phone] PCP - General 03/09/23
--- OUTSIDE RECORDS SUMMARY | 2025-10-03 13:44 | XMS_ITS | Clinical Summary ---
Author Organization [facility] Address [address] [place] [address] Care Team Providers Care Associate Professor Of Biblical Studies Name Role Phone Nena Garcia NP Unavailable [phone] Armen Johns MD Primary Care Provider [phone] Allergies Active Allergy Reactions Criticality Noted Date [...] 9 Active blood-glucose meter (ONETOUCH ULTRA2 METER) [facility] USE DIRECTED TO TEST BLOOD SUGAR 6 [...] without long-term current use of insulin ([facility]) 03/17/2019 Assessment & Plan (03/17/2019 4:18 PM CDT): 58-year-old woman with history of type 2 diabetes admitted March 12, 2019 after partial traumatic amputation right foot now post [id number] amputation. She previously was intolerant of metformin [...] (03/12/2019): Added automatically from request for surgery [id number] Assessment & Plan (03/17/2019 4:19 PM CDT): [...] Encounter [facility] [address] [place] [address] Rad, Amh Fluoro Blake Hernandez MD Diaphragmatic hernia without obstruction or gangrene Discharge Disposition: Discharge to home or self care from Last 3 Months Immunizations Immunization Administration Dates Next Due Tdap 03/12/2019 Surgical History Surgery Date Site/Laterality Comments TUBAL LIGATION ENDOMETRIAL ABLATION HYSTERECTOMY 1990s for endometriosis BELOW KNEE LEG AMPUTATION 03/12/2019 Right for traumatic injury of R foot- caught under awning frame maker CARPAL TUNNEL RELEASE Left Medical History Medical [...] on file Legal Sex Female 12:13 AM 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 Gender Identity Not on file Sexual Orientation Not on file 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 Not on file Not on file Last Filed Vital Signs Vital Sign Reading Time Taken Comments Blood Pressure 122/74 10/16/2024 6:48 PM HOT 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 Pulse 70 10/16/2024 6:48 PM HOT 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 Temperature 36.7 C (98.1 F) 10/16/2024 6:48 PM HOT 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 Respiratory Rate 17 10/16/2024 6:48 PM HOT 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 Oxygen Saturation 98% 10/16/2024 6:48 PM HOT 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 Inhaled Oxygen Concentration - - Weight 136.1 kg (300 lb) 10/16/2024 6:48 PM HOT 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 per patient Height 182.9 cm (6') 10/16/2024 6:48 PM HOT 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 Body Mass Index 40.69 10/16/2024 6:48 PM HOT 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 Plan of Treatment Health Maintenance Due [...] DIGITAL MAMMOGRAPHY Routine 11/04/2013 2 :19 PM HOT 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 from Last 3 Months or Most [...] Maria Niño D.O. PS: PS Report ID: [id number] Reading Location: [id number] Procedure Note Ana Maria Niño DO - [...] Maria Niño D.O. PS: PS Report ID: [id number] Reading Location: [id number] Blake Hernandez MD IMG XR PROCEDURES Final [...] Maria Niño D.O. PS: PS Report ID: [id number] Reading Location: [place] [address] Procedure Note Ana Maria Niño, - 07/18/2025 EXAM DESCRIPTION: FL UPPER GI [...] Maria Niño D.O. PS: PS Report ID: [id number] Reading Location: [place] [address] Blake Hernandez MD IMG FLUOROSCOPY PROCEDURES Fi [...] on 2018. HDL 45 >=40 mg/dL [facility] Comment: Interpretive Data Ages [...] last revised on 2018. Chol/HDL ratio 4 [facility] Blood specimen (specimen) 03/13/2019 1:03 AM CDT 03/13/2019 12:42 PM CDT Narrative [facility] - 03/14/2019 2:21 AM CDT Walker Lake MD LAB BLOOD ORDERABL ES Final Result Performing Organization Address [facility] de Phone Number [facility] Department [place] [address] * (ABNORMAL) Hemoglobin A1c (03/12/2019 2:48 PM CDT) Hgb A1C 9.3(H) 4.0 - 5.6 % [facility] Estimated Average Glucose 220 mg/dL [facility] Comment: The ADA recommends reporting an estimated Average Glucose (eAG) with all Hemoglobin A1c results using the equation derived from a study of 507 normal and diabetic adults. Minority populations were underrepresented and children were not included. (Diabetes Care 31:7960-2365, 2008). The eAG is not equivalent to a fasting glucose. Blood specimen (specimen) 03/12/2019 2:48 PM CDT 03/12/2019 3:01 PM CDT Narrative [facility] - 03/12/2019 9:09 PM CDT us Jhonny Headley MD LAB BLOOD ORDERABLES Final R esult Performing Organization Address [facility] Co de Phone Number [facility] Department [place] [address] * DIGITAL MAMMOGRAPHY (11/04/2013 2:19 PM HOT 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) Anatomical Region Laterality Modality Breast Mammography 11/04/2013 2:19 PM HOT 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 Narrative 11/04/2013 7:55 PM HOT 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 Screening Mamm Bi Acc#: [id number] DATE OF EXAM: Nov 04 2013 CLINICAL [...] Joan - 03/17/2017 Screening Mamm Bi Acc#: [id number] DATE OF EXAM: Nov 04 2013 CLINICAL [...] was utilized in interpretation of these images. [facility] system to notify [...] Most Recently Relevant to Health Maintenance Insurance [facility] PLAN [facility] 9 Advance Directives For more information, please contact: [phone] * Full Code (Latest Code Status on File) Date Activated Date Inactivated Comments 03/12/2019 4:27 PM 03/17/2019 10:36 PM Care Teams Associate Professor Of Biblical Studies Relationship Specialty [place] [id number] [address] [address] PCP - General Family Practice 05/27/22 Nena Garcia LOG CUTTER [id number] [address] [address] 03/12/19
--- OUTSIDE RECORDS SUMMARY | 2025-10-03 13:44 | XMS_ITS | Clinical Summary ---
Author Organization [facility] Address [address] [place] [address] Phone Care Team Providers Care Nuclear Operations Specialist Name Role Phone Analy Wilkerson APRN, OSTOMY RN Unavailable Armen Johns MD Primary Care Provider [phone] Allergies Active Allergy Reactions Criticality Noted Date [...] 1/2 tab. Active Vitamin D3 1.25 MG (23941 UT) Capsule Take 5,000 Units by mouth [...] GERD (gastroesophageal reflux disease) Dyslipidemia Asthma Anxiety Immunizations Immunization Administration Dates Next Due Influenza Vaccine, Quadrivalent, PF 1111/2021,09/13/2021,03/11/2020,10/30 Influenza, Injectable, Quadrivalent 09/25/2016 Influenza, Seasonal, Injecta ble, Undefined 10/25/2015 Influenza,Split Virus,Trivalent,Injectable,PF 10/27/2013 Pneumococcal Vaccine Adult - 23 Valent ,03/11/2020 Pneumococcal conjugate PCV20 , polysaccharide [id number] conjugate, adjuvant, PF 05/09/2023 TDAP Vaccine 03/12/2019 [...] = 0.6 oz pur e alcohol) Rarely [employer]-Files Utilities Answer Date Recorded In the past 12 months has [employer], [employer], oil, or water [employer] threatened to shut off services in your [...] time in the past 12 m [facility], were you homeless or living [...] 128.4 kg (283 lb) 01/12/2025 8:44 AM CENTRAL SERVICE TECHNICIAN Height 182.9 cm (6') 01/12/2025 8:44 AM CENTRAL SERVICE TECHNICIAN Body Mass Index 38.38 01/12/2025 8:44 AM CENTRAL SERVICE TECHNICIAN Plan of Treatment Health Maintenance Due Date Last Done Comments Diabetes: Eye Exam 1960 Diabetes: Foot Exam 1960 Hepatitis C Virus (HCV) Screening 1960 Cologuard 2007 Respiratory Syncytial Virus (RSV) Immunization (Adult) (1 - Risk 50-74 years 1-dose series) 2012 Mammogram 04/30/2019 04/30/2018 Immunochemical Fecal Occult Blood 03/11/2021 03/11/2020 Diabetes: Hemoglobin A1c 07/11/2025 025, 03/09/2020, 03/12/2019, [...] 05/09/2023, 09/13/2021, 03/11/2020 Zoster Immunization Completed 09/19/2023, Hepatitis B Immunization Aged Out No longer [...] Procedure Name Priority Date/Time Associated Diagnosis Comments CMP (COMPREHENSIVE METABOLIC PANEL) STAT 01/11/2025 10:29 PM CENTRAL SERVICE TECHNICIAN HEMOGLOBIN A1C W/ ESTIMATED GLUCOSE STAT 01/11/2025 10:29 PM CENTRAL SERVICE TECHNICIAN STOOL, OCCULT BLOOD, DIAGNOSTIC, VIA GUAIAC Routine 03/11/2020 12:35 AM CDT BRIGITTE DIAG BILATERAL DIGITAL W CAD W LANDEN Routine 04/30/2018 11:03 AM CDT Unspecified lump in the left breast, upper inner quadrant from Last 3 Months or Most Recently Relevant to Health Maintenance Results * (ABNORMAL) Hemoglobin A1C (if indicated) (01/11/2025 10:29 PM CENTRAL SERVICE TECHNICIAN) HGB-A1C 11.8(H) 4.0 - 6.0 % 01/12/2025 4:45 AM [facility] Est Average Glucose 292.0 mg/dL 01/12/2025 4:45 AM [facility] Blood Venipuncture / Unknown 01/11/2025 10:29 PM CENTRAL SERVICE TECHNICIAN 01/11/2025 10:45 PM CENTRAL SERVICE TECHNICIAN Narrative [facility] - 01/12/2025 4:45 AM CENTRAL SERVICE TECHNICIAN HEMOGLOBIN A1C: DIABETIC PATIENTS: WELL-CONTROLLED: 6.2 - 7.0 INTERMEDIATE WELL-CONTROLLED: 7.0 - 9.0 POORLY-CONTROLLED: >9.0 Specimens containing greater than 5% of Hemoglobin F may result in lower than expected % HbA1C results. us Katy Otero RUBBER COVERING MACHINE OPERATOR, OSTOMY RN CHEMISTRY ORDERABLES Yue conde Result [facility] [address] [place] [address] * (ABNORMAL) CMP (01/11/2025 10:29 PM CENTRAL SERVICE TECHNICIAN) Pathologist [facility] SODIUM 138 136 - 145 mmol/L 01/11/2025 11:07 PM [facility] POTASSIUM 4.7 3.5 - 5.1 mmol/L 01/11/2025 11:07 PM [facility] Comment: Specimen is hemolyzed. In vitro hemolysis could affect results. Clinical correlation advised. CHLORIDE 106 98 - 107 mmol/L 01/11/2025 11:07 PM [facility] CO2, VENOUS 20(L) 22 - 30 mmol/L 01/11/2025 11:07 PM [facility] ANION GAP 16.7 <18.0 mmol/L 01/11/2025 11:07 PM [facility] GLUCOSE 318(H) 70 - 99 mg/dL 01/11/2025 11:07 PM [facility] BUN 21(H) 10 - 20 mg/dL 01/11/2025 11:07 PM [facility] CREATININE, BLOOD 1.83(H) 0.60 - 1.00 mg/dL 01/11/2025 11:07 PM [facility] BUN/CREATININE RATIO 11(L) 12 - 20 ratio 01/11/2025 11:07 PM [facility] TOTAL PROTEIN 8.2(H) 6.0 - 8.0 g/dL 01/11/2025 11:07 PM [facility] Comment: Specimen is hemolyzed. In vitro hemolysis could affect results. Clinical correlation advised. ALBUMIN 3.5 3.5 - 5.0 g/dL 01/11/2025 11:07 PM [facility] A/G RATIO 0.7(L) 1.0 - 2.2 01/11/2025 11:07 PM [facility] CALCIUM 8.9 8.7 - 10.5 mg/dL 01/11/2025 11:07 PM [facility] T BILI 0.6 0.2 - 1.2 mg/dL 01/11/2025 11:07 PM [facility] SGOT (AST) 37 <43 U/L 01/11/2025 11:07 PM [facility] Comment: Specimen is hemolyzed. In vitro hemolysis could affect results. Clinical correlation advised. SGPT (ALT) 17 <56 U/L 01/11/2025 11:07 PM [facility] ALKALINE PHOSPHATASE 66 40 - 150 U/L 01/11/2025 11:07 PM [facility] GFR, ESTIMATED 31(L) >=60 01/11/2025 11:07 PM [facility] Comment: Creatinine Clearance is the preferred criteria for selecting drug dose adjustments in renally impaired patients. The GFR is provided as additional pertinent clinical information. GFR is reported in mL/min/1.73 sq m. Calculation based on the Chronic Kidney Disease Epidemiology Collaboration (CKD- EPI) equation refit without adjustment for race. GFR, EST. 34(L) >=60 02/19/2 025 11:07 PM CENTRAL SERVICE TECHNICIAN [facility] GFR, EST. NONAFRICAN 28(L) >=60 01/11/2025 11:07 PM CENTRAL SERVICE TECHNICIAN [facility] Blood Venipuncture / Unknown 01/11/2025 10:29 PM CENTRAL SERVICE TECHNICIAN 01/11/2025 10:45 PM CENTRAL SERVICE TECHNICIAN us Shady Irby MD CHEMISTRY ORDERABLES Final Result Performing Organization Address City/[facility]/ZIP Co de Phone Number [facility] [address] [place] [address] * Stool, Occult Blood, Diagnostic (03/11/2020 12:35 AM CDT) OCCULT BLOOD DIAG Negative Negative 03/11/2020 1:11 AM CDT [facility] Stool specimen (specimen) STOOL SPECIMEN / Unknown Non-Phlebotomy Collection / Unknown 03/11/2020 12:35 AM CDT 03/11/2020 12:41 AM CDT us Alyssia Leyva APRN, OSTOMY RN BODY FLUIDS & STOOL S ORDERABLES Final Result Performing Organization Address [facility] Co de Phone Number [facility] [address] [place] [address] * BRIGITTE DIAG BILATERAL DIGITAL W CAD [...] exams dated: 11/03/2006, 11/04/2013, 10/27/2006, and 10/27/2006 [facility]. BREAST TISSUE:There are scattered fibroglandular densities [...] signed by: Sintia Duarte M.D. ll/:04/30/2018 11:30:16 Manufacturing Supervisor: Marcia Resendiz (Chandu), [facility] letter sent: Normal Exam Reading location: [facility] OVERALL STUDY BIRADS: 2 Benign Procedure [...] exams dated: 11/03/2006, 11/04/2013, 10/27/2006, and 10/27/2006 [facility]. BREAST TISSUE:There are scattered fibroglandular densities [...] signed by: Sintia Duarte M.D. 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 Care Teams Nuclear Operations Specialist Relationship Specialty Start Date End Date Armen Johns MD PCP - General Family Medicine 05/26/22 Analy Wilkerson APRN, OSTOMY RN Nurse Practitioner Advanced Practice Nurse 07/25/16
== END 2025-10-03 13:37 | disposition home or self-care (01) ==
LOC: ANHIMG 13:39
PROVIDERS: PCP Nurse Practitioner Adult Health; Visit Provider Nurse Practitioner Adult Health
DX: R16.0 Hepatomegaly, not elsewhere classified (principal)
CPT/HCPCS: 74183; A9577

== ENCOUNTER 2025-10-09 07:24 | Outpatient (CLI) | payer OTHER, SELFPAY ==
--- NOTE | ~2025-10-09 | NM_ITS ---
EXAMINATION: NM stan stress w perfusion DATE: 10/09/2025 11:26 INDICATION: Other forms of dyspnea TECHNIQUE: Rest images were obtained following intravenous administration of 11 mCi Tc99m tetrofosmin (Myoview). The patient was infused intravenously with Lexiscan (Regadenoson). Then, 32.8 mCi Tc99m tetrofosmin (Myoview) was administered intravenously, and stress images were obtained. Data was recons tructed into short axis and horizontal and vertical long axis SPECT images. Gated SPECT images were also obtained. COMPARISON: None. FINDINGS: There is a moderate-sized mild perfusion defect at the mid inferolateral, basilar inferolateral segments on both the rest and stress images consistent with infarct. On the stress images the perfusion defect extends into portions of the immediately adjacent apical lateral, mid anterolateral and basilar anterolateral segments consistent with ischemia with additional partial reversibility on the rest images at the basilar inferolateral segments also consistent with ischemia. Small mild perfusion defect at the mid anterior segment more prominent on the stress than the rest images which could represent additional ischemia or potentially breast attenuation artifact with breast attenuation from the left breast evident extending over the anterior wall on the rotating source images. There is normal left ventricular chamber size, wall motion and ejection fraction. Left ventricular ejection fraction measures >70%. IMPRESSION: 1. Small fixed infarct at the mid inferolateral and basilar inferolateral segments superimposed reversible ischemia at the basilar inferolateral segment and extending into portion of the adjacent apical lateral, mid anterolateral and basilar anterolateral segments. 2. Small region of potential reversible ischemia at the mid anterior segment which rotating source images may also reflect breast attenuation artifact. Prone imaging was not obtained. 3. Left ventricular ejection fraction measuring >70%. Reviewed, dictated and finalized at location A. N OFFBEARER IMPRESSION: 1. Small fixed infarct at the mid inferolateral and basilar inferolateral segme nts superimposed reversible ischemia at the basilar inferolateral segment and e xtending into portion of the adjacent apical lateral, mid anterolateral and bas ilar anterolateral segments. 2. Small region of potential reversible ischemia at the mid anterior segment wh ich rotating source images may also reflect breast attenuation artifact. Prone imaging was not obtained. 3. Left ventricular ejection fraction measuring >70%.
--- NOTE | 2025-10-09 07:43 | EST_ITS ---
Patient Info Name: Marge Alarcon Age: 64 years : 1960 Gender: Female Ht: 72 in Wt: 240 lbs BSA: 2.38 m2 HR: 65 bpm BP: 116 / 76 mmHg Exam Date: 10/09/2025 7:43 AM Patient Status: O Admit Date: 10/09/2025 Exam Type: CA stress stan w NM A regadenoson stress test was performed. Staff Referring Physician: Que Ortez DO Attending Provider: Que Ortez DO Exercise Technologist: Awilda Ramirez Exercise Physician: Que Ortez DO Summary 1. 1. Negative lexiscan stress test for ischemic ST changes by ECG criteria. 2. 2. Stable hemodynamics throughout the test. 3. 3. Nuclear scan to follow and will be reported separately. Please correlate with it. 4. 4. Patient informed of the above results. Protocol: Lexiscan Stress ECG Details Stage: REST Duration (min): 0 min : 42 sec HR (bpm): 64 SBP (mmHg): 116 DBP (mmHg): 76 Stage: REST Duration (min): 9 min : 23 sec HR (bpm): 64 SBP (mmHg): 116 DBP (mmHg): 76 Stage: STAGE 1 Duration (min): 1 min : 0 sec HR (bpm): 78 SBP (mmHg): 114 DBP (mmHg): 76 Stage: RECOVERY Duration (min): 1 min : 0 sec HR (bpm): 91 SBP (mmHg): 114 DBP (mmHg): 76 Stage: RECOVERY Duration (min): 2 min : 0 sec HR (bpm): 88 SBP (mmHg): 114 DBP (mmHg): 76 Stage: RECOVERY Duration (min): 3 min : 0 sec HR (bpm): 84 SBP (mmHg): 108 DBP (mmHg): 69 Stage: RECOVERY Duration (min): 3 min : 3 sec HR (bpm): 84 SBP (mmHg): 108 DBP (mmHg): 69 Rest HR: 64 bpm Peak HR: 92 bpm Rest Sys BP: 116 mmHg Peak Sys BP: 114 mmHg Max Pred HR: 158 bpm % Max Pred HR: 58 % Target HR: 134 bpm Max RPP: 10,488 bpm*mmHg Termination Reason: Completed protocol Cardiac Symptoms: Shortness of breath, Chest pain Total Time: 1 min : 0 sec Rest Castañeda BP: 76 mmHg Peak Castañeda BP: 76 mmHg Total Dose: 0.4 mg Resting ECG Sinus rhythm. Stress ECG No ST changes. Arrhythmias None. Report Signatures
--- NOTE | 2025-10-09 07:43 | ECHO_ITS ---
Patient Info Name: Marge Alarcon Age: 64 years : 1960 Gender: Female Ht: 72 in Wt: 240 lbs BSA: 2.38 m2 HR: 83 bpm BP: 132 / 84 mmHg Technical Quality: Fair Exam Date: 10/09/2025 7:55 AM Patient Status: O Admit Date: 10/09/2025 Exam Type: CA echo doppler color flow Complete two-dimensional, color flow and Doppler transthoracic echocardiogram is performed. Staff Referring Physician: Que Ortez DO Program Director [employer]: Nena Tompkins Attending Provider: Que Ortez DO Summary 1. Complete two-dimensional, color flow and Doppler transthoracic echocardiogram is performed. 2. Left ventricular chamber dimension is normal. 3. Left ventricular systolic function is normal, estimated at 65-70. 4. The left ventricular diastolic function is normal. 5. E/e' 8 is minimally elevated. 6. Left atrial chamber dimension is mildly enlarged. 7. There is trace mitral valve regurgitation. 8. No pulmonary hypertension, estimated pulmonary arterial systolic pressure is 32 mmHg. 9. There is trace tricuspid valve regurgitation. Left Ventricle E/e' 8 is minimally elevated. Left ventricular chamber dimension is normal. Left ventricular systolic function is normal, estimated at 65-70. The left ventricular diastolic function is normal. Right Ventricle Right ventricular chamber dimension is normal. Right ventricular systolic function is normal and with normal TAPSE 2.7 cm. Left Atria Left atrial chamber dimension is mildly enlarged. Right Atria Right atrial chamber dimension is normal. Aortic Valve The aortic valve is trileaflet. There is no aortic valve stenosis. There is no aortic valve regurgitation. Pulmonic Valve There is no pulmonic regurgitation. Mitral Valve There is no mitral valve stenosis. There is trace mitral valve regurgitation. Tricuspid Valve There is trace tricuspid valve regurgitation. No pulmonary hypertension, estimated pulmonary arterial systolic pressure is 32 mmHg. Pericardium/Pleural There is no pericardial effusion. Inferior Vena Cava Normal inferior vena cava with >50% collapse upon inspiration consistent with normal right atrial pressure, 5 mmHg. Aorta The aortic root size at the sinus of Valsalva is normal. Left Ventricular Outflow Tract Name Value Normal LVOT 2D LVOT Diameter 2.0 cm LVOT Doppler LVOT Peak Velocity 113 cm/s LVOT Peak Gradient 5 mmHg LVOT Mean Gradient 3 mmHg LVOT VTI 25 cm LVOT VTI/AV VTI Ratio 0.8 LVOT Stroke Volume 75 ml LVOT CO 5.2 l/min LVOT CI 2.2 l/min/m2 Pulmonic Valve Name Value Normal RVOT Doppler RVOT Peak Velocity 73 cm/s RVOT Peak Gradient 2 mmHg PV Doppler PV Peak Velocity 89 cm/s PV Peak Gradient 3 mmHg Mitral Valve Name Value Normal MV Diastolic Function MV E Peak Velocity 66 cm/s MV A Peak Velocity 65 cm/s MV E/A 1.0 MV Decel Time (PW) 212 ms Tricuspid Valve Name Value Normal TV Regurgitation Doppler TR Peak Velocity 258 cm/s TR Peak Gradient 27 mmHg Estimated PAP/RSVP RA Pressure 5 mmHg <=5 PA Systolic Pressure 32 mmHg <36 RV Systolic Pressure 32 mmHg <36 TV Annular TDI TV Lateral Yasmin s' Velocity 14.7 cm/s >=9.5 Aorta Name Value Normal Ascending Aorta Ao Root Diameter (MM) 3.3 cm Ao Root Diam Index (MM) 1.4 cm/m2 Aortic Valve Name Value Normal AV Doppler AV Peak Velocity 137 cm/s AV Peak Gradient 8 mmHg AV Mean Gradient 4 mmHg AV VTI 30 cm AV Area (Cont Eq VTI) 2.5 cm2 >=3.0 AV Area (Cont Eq Kushal) 2.5 cm2 AV DI (Kushal) 0.82 AV Regurgitation 2D LVOT Area 3.0 cm2 Ventricles Name Value Normal LV Dimensions 2D/MM LVOT Diameter 2.0 cm LV Fractional Shortening/Ejection Fraction 2D/MM LV Diastolic Volume (4C MOD) 89 ml LV EF (4C MOD) 74 % LV Diastolic Volume (2C MOD) 89 ml LV EF (2C MOD) 83 % LV Diastolic Volume (BP MOD) 90 ml 46-106 LV Diastolic Volume Index (BP MOD) 38 ml/m2 29-61 LV Systolic Volume (BP MOD) 20 ml 14-42 LV Systolic Volume Index (BP MOD) 8 ml/m2 8-24 LV EF (BP MOD) 78 % 54-74 LV Diastolic Length (4C) 7.7 cm LV Systolic Length (4C) 6.5 cm LV Stroke Volume (4C MOD) 66 ml Atria Name Value Normal LA Dimensions LA Dimension (MM) 4.0 cm 2.7-3.8 LA Volume (4C A-L) 69 ml LA Volume (BP A-L) 70 ml RA Dimensions RA Systolic [place] Length (4C) 5.4 cm 2.2-2.8 RA Area (4C) 16.3 cm2 <=18.0 Report Signatures
== END 2025-10-09 07:25 | disposition home or self-care (01) ==
LOC: ANHCARD 07:25
PROVIDERS: PCP Nurse Practitioner Adult Health; Visit Provider Internal Medicine Cardiovascular Disease
DX: R06.09 Other forms of dyspnea (principal); I51.7 Cardiomegaly
CPT/HCPCS: 78452; 93017; 93306; A9502; J2785

== ENCOUNTER 2025-10-23 00:08 | Day surgery (SDC) | payer OTHER, SELFPAY ==
[2025-10-20 11:05] VITALS: BMI 32.5
[2025-10-23] VITALS (13 sets, daily range): BP systolic 99–131; BP diastolic 63–86; PULSE 62–79; RESP 12–17; TEMP 35.8; O2SAT 92–98; BMI 32.5
[2025-10-23 07:41] LABS: Hematocrit 42.2 % (37.0-47.0); Hemoglobin 13.4 g/dL (12.0-15.0); Immature Granulocyte Percent A 0.2 % (0-0.5); Lymphocytes Absolute Auto 1.83 K/mm3 (0.9-3.2); Mean Corpuscular HGB Conc 31.8 g/dl (32-36); Mean Corpuscular Hemoglobin 28.0 pg (26-34); Mean Corpuscular Volume 88.1 fl (80-100); Nucleated Red Blood Cells Absolute Auto 0.000 K/mm3 (0.0-0.012); Nucleated Red Blood Cells Perc 0.0 % (0.0-0.2); Platelet Count Result 201 k/mm3 (150-375); Red Blood Count 4.79 M/mm3 (4.2-5.4); White Blood Count 5.8 K/mm3 (4.5-10.0)
[2025-10-23 08:15] LABS: Anion Gap 5 mmol/L (4-12); Blood Urea Nitrogen 14 mg/dL (7-17); Calcium 9.2 mg/dL (8.4-10.2); Carbon Dioxide 26 mmol/L (22-30); Chloride 109 mmol/L (98-107); Estimated CRCL calculation 79 ml/min; Estimated Glomerular Filt Rate > 60; Glucose 182 mg/dL (65-110); Potassium 3.7 mmol/L (3.4-5.0); Sodium 140 mmol/L (137-145)
--- NOTE | 2025-10-23 08:34 | WPDHPUPDATE1 ---
History and Physical Update Update Date/Time: 10/23/25 08:34 History and Physical has been reviewed, including an updated exam of the patient. There are NO changes in the patient's condition. Risks, benefits, and alternatives have been discussed and questions answered. Patient agrees to proceed with procedure.
--- NOTE | 2025-10-23 08:34 | WPDMODSED ---
Moderate Sedation Note-Pt Data Patient Data Allergies Allergy/AdvReac Type Severity Reaction Status Date / Time bisacodyl (From Dulcolax Allergy Mild Swelling Verified 10/23/25 07:23 (bisacodyl)) amoxicillin Allergy Unknown Unknown Verified 10/23/25 07:23 nitrofurantoin Allergy Unknown Unknown Verified 10/23/25 07:23 Sulfa (Sulfonamide Allergy Unknown Unknown Verified 10/23/25 07:23 Antibiotics) ciprofloxacin Allergy Swelling Verified 10/23/25 07:23 of Lip/Tongue/Throat tirzepatide (From Mounjaro) AdvReac Intermediate Other Verified 10/23/25 07:23 codeine AdvReac Unknown Hallucinati Verified 10/23/25 07:23 ng metformin AdvReac cramping, Verified 10/23/25 07:23 nausea, abdominal pain morphine AdvReac Anxiety Verified 10/23/25 07:23 spironolactone AdvReac hypercalcem Verified 10/23/25 07:23 ia warfarin (From Coumadin) AdvReac hemorrage Verified 10/23/25 07:23 Home Medications ?Medication ?Instructions ?Recorded ?Confirmed ?Type blood-glucose meter (CareTouch #1 ea 11/26/21 10/18/25 Rx Glucose Monitoring System kit) pen needle, diabetic 31 gauge x #100 ea 08/31/24 10/18/25 Rx 3/16 (BD Ultra-Fine Mini Pen Needle) naloxone 4 mg/actuation nasal 4 mg intranasal Q2-3M PRN opioid 03/06/25 10/20/25 Rx spray (Narcan) overdose #2 ea empagliflozin 25 mg tablet See Rx Instructions .Route 03/20/25 10/20/25 Rx (Jardiance) .COMPLEX #90 tabs blood-glucose meter #1 ea 07/05/25 10/18/25 Rx gabapentin 600 mg tablet See Rx Instructions .Route 07/05/25 10/23/25 Rx .COMPLEX #180 tabs blood sugar diagnostic (CareTouch #300 ea 07/06/25 10/18/25 Rx Test Strip) lancets 33 gauge (CareTouch Twist #300 ea 07/06/25 10/18/25 Rx Lancet) insulin glargine 100 unit/mL (3 See Rx Instructions subcut .COMPLEX 07/10/25 10/20/25 History mL) subcutaneous pen (Lantus Solostar U-100 Insulin) azelastine 137 mcg (0.1 %) nasal 1 spray intranasal Q12H PRN 08/21/25 10/20/25 History spray allergies polyethylene glycol 3350 17 gram 17 g PO QAM #30 ea 08/25/25 10/20/25 Rx oral powder packet (Miralax) albuterol sulfate 90 mcg/actuation 2 puff inhalation Q6-8H PRN 09/12/25 10/20/25 Rx aerosol inhaler shortness of breath or wheezing #8.5 grams loratadine 10 mg tablet See Rx Instructions .Route 09/12/25 10/20/25 Rx .COMPLEX #30 tabs fluconazole 150 mg tablet 150 mg PO Q3D #2 tabs 09/21/25 10/20/25 Rx alprazolam 0.5 mg tablet 0.5 mg PO TID PRN anxiety #90 tabs 09/27/25 10/20/25 Rx hydrocodone 10 mg-acetaminophen 1 tablet PO Q8H PRN pain #90 tabs 09/27/25 10/20/25 Rx 325 mg tablet aspirin 81 mg tablet 81 mg PO DAILY 10/12/25 10/20/25 History nystatin 100,000 unit/mL oral See Rx Instructions .Route 10/12/25 10/20/25 Rx suspension .COMPLEX #250 mL rosuvastatin 5 mg tablet 5 mg PO DAILY 10/12/25 10/20/25 History Current Medications: Active Medications Sodium Chloride (Normal Saline Iv) 500 mls @ 100 mls/hr IV CONT .Q5H AIDAN Sedation/Anesthesia: No previous sedation/anesthesia problems (including family history). [facility] Past Medical History Medical History Hx of hiatal hernia S/P ROBO RE PARAESOPHAGEAL 08/03 DR. PATRICIA GORE MD Hypertension Peripheral neuropathy Thrush, oral UTI (urinary tract infection) LILIAN (acute kidney injury) Amputation of right lower extremity Positive colorectal cancer screening using Cologuard test Asthma Obesities, morbid Therapeutic opioid-induced constipation (OIC) Nausea Epigastric pressure Early satiety Family hx of colon cancer Gastroparesis Hiatal hernia Amputation of right lower extremity below knee Anxiety Other detention (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 therapy Peripheral polyneuropathy Phantom limb Uncontrolled type 2 diabetes mellitus with hyperglycemia Surgical History Surgical History (Updated 09/21/25 @ 09:04 by Radha Amaral MA) Paraesophageal hiatal hernia Robotic laparoscopic repair large paraesophageal hiatal hernia with fundoplasty and fundopexy 08/03/25 Dr. Patricia Gore MD History of repair of hiatal hernia History of carpal tunnel surgery of left wrist Hx of hysterectomy Family History Family History Mother Diabetes mellitus Heart failure Grandparent Diabetes mellitus Family history of pancreatic cancer Family history of colonic diverticulitis Sibling COPD (chronic obstructive pulmonary disease) Parkinson disease Father Parkinson disease Social History Social History Social History: she currently lives with her . She does not work outside the home. Code status: full code Smoking status: Never smoker Second hand tobacco smoke exposure: No Alcohol intake: never Substance use: never Substance use type: does not use Lack of Transportation: No Lack of Food: Never True Current Housing: I Have Housing Concerned About Future Housing: No Difficulty Paying Gas/Electric Bills: No Difficulty Paying for Meds: No Currently Unemployed: No Education: Trade/Vocational Certificate Difficulty w/ Childcare or Family Care: No Living arrangements: with family Spiritual care concerns: No Mod Sed Physical Exam Physical Exam Pre Procedural Exam: Normal: Lungs, Heart Size, Heart Rate and Heart Rhythm Hours since solid foods: 12 Hours since liquid intake: 12 Mallampati Classification: class III Internal Medicine - PN: Obj Da Vital Signs Vital Signs: Vital Signs - 24 hr 10/23/25 07:26 Temperature 35.8 C L Pulse Rate 66 Respiratory Rate 16 Blood Pressure 129/78 Pulse Oximetry 98 Oxygen Delivery Room Air Meds/Results Medications: Active Medications Generic Name Dose Route Start Last Admin Trade Name Freq PRN Reason Stop Dose Admin Sodium Chloride 500 mls @ 100 mls/hr 10/23/25 07:00 Normal Saline Iv IV CONT .Q5H AIDAN Labs 10/23/25 07:36 10/23/25 07:36 Labs: Laboratory Results - last 24 hr 10/23/25 07:36 WBC 5.8 RBC 4.79 Hgb 13.4 Hct 42.2 MCV 88.1 MCH 28.0 MCHC 31.8 L RDW 14.8 H Plt Count 201 MPV 11.0 H Immature Gran % (Auto) 0.2 Neut % (Auto) 58.6 Lymph % (Auto) 31.4 [place] % (Auto) 7.9 Eos % (Auto) 1.2 Baso % (Auto) 0.7 Lymph # (Auto) 1.83 [place] # (Auto) 0.5 Eos # (Auto) 0.1 Baso # (Auto) 0.0 Abs Immat Gran (auto) 0.01 Absolute Neuts (auto) 3.4 Absolute Nucleated RBC 0.000 Nucleated RBC % 0.0 Sodium 140 Potassium 3.7 Chloride 109 H Carbon Dioxide 26 Anion Gap 5 BUN 14 Creatinine 0.90 Estim Creat Clear Calc 79 Estimated GFR > 60 Glucose 182 H Calcium 9.2 ASA Classification/Sedation ASA Classification/Sedation ASA Class: III Emergent: No Risks: Risks, benefits and alternatives explained and patient/family accepted plan for sedation. Patient re-evaluated immediately prior to sedation.
--- NOTE | 2025-10-23 09:28 | P.PCNCC_ITS ---
Cardiac Cath Procedure Note Date of procedure:: 10/23/25 Performing physician:: CATHETERIZATION LABORATORY REPORT Procedure Date: 10/23/2025 Referring Physician: Dr. Ortez Anesthesia: Versed and Fentanyl were ordered and given in my presence at 0856, procedure ended at 0923. Supervision of nurse, Diann Treviño monitored moderate sedation with 2mg Versed and 150mcg Fentanyl was provided for 27 minutes. 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 All risks, benefits and alternatives to left heart catheterization with or without percutaneous coronary intervention was discussed at length with the patient. Risk of complications including but not limited to bleeding, infection, arrhythmia, stroke, worsening kidney function, blood loss, groin hematoma, limb loss, emergency coronary artery bypass grafting, and even were discussed with the patient and all questions were answered. The patient understood and wished to proceed. Time out called, patient name, date of , medical record number, allergies, procedure performed, identify Manager Beverage, patient and staff member concurred with accurate data, procedure carried on. Findings: LEFT HEART CATHETERIZATION FINDINGS: 1. Left main: The left main coronary artery is long with luminal irregularities. 2. Left anterior descending: The LAD is a moderate caliber vessel that does not reach the apex. The mid vessel has mild diffuse 10% stenosis. The 2nd diagonal branch is a moderate caliber vessel that has luminal irregularities. 3. Left circumflex: The left circumflex artery is diminutive supplying 3 very small insignificant OM branches. The true left circumflex courses around the AV groove and is also very small and insignificant. 4. Right coronary artery: The RCA is a large dominant vessel with 10-20% stenosis in its proximal to mid body. The remainder of the vessel and its branches have luminal irregularities. This vessel also supplies the majority of the inferolateral and apical montes. 5. Left ventricle: A. End-diastolic pressure 11 mmHg. B. LV gram deferred. C. No significant gradient across aortic valve on catheter pullback. 6. Opening AO pressure 111/65 and closing AO pressure 115/95 7. Aortogram: Due to the long left main coronary artery, and aortogram was performed to rule out anomalous coronary arteries. No anomalous coronary artery is noted. No aneurysms or dissections noted in the aortic arch and ascending aorta. Description of Procedure: Informed consent signed and placed in the chart. Patient transferred to cytogenetics laboratory manager room. Prepped and draped in usual sterile fashion. 2% lidocaine injected subcutaneously in right wrist area. 22-gauge venipuncture catheter used to access the right radial artery with the Seldinger technique under ultrasound guidance. 6-FR slender sheath placed in right radial artery. Nitroglycerin 200mcg, Verapamil 2.5mg, and Heparin 5000U was given intraarterial through the sheath. J wire advanced under fluoroscopy. A 5F diagnostic Ultra catheter was used to crossed the aortic valve and after gradients and pressures recorded, it was pull back and attempted to engage the coronaries. Due to difficult engagement, it was switched out for a 5F JR4 diagnostic catheter to engage the right coronary artery. A 5F JL3.5 diagnostic catheter was used to engage the left main coronary artery. Multiple orthogonal angiogram obtained and reviewed. A 5F pigtail catheter was used for an aortogram. Hemostasis was achieved by application of TR band. Assessment: Mild CAD Post Operative Condition: Stable No significant blood loss Disposition: Floor Plan: The patient will be monitored in the recovery area. The above findings were discussed with the referring physician. Continue aggressive medical therapy and risk factor modification. Rene Valle Interventional Cardiology
[2025-10-23] MEDS: SODIUM CHLORIDE 0.9% IV 1,000 ML 125 ML IV CONT (09:50)
--- NOTE | 2025-10-23 11:32 | SUR.PHASEII ---
Pt's expressed concern about pt transferring in and out of wheelchair with weight bearing restriction. This RN explained that pt can not use right arm for 24 hours and restriction of 5lbs for a week afterwards. Pt and family verbalized understanding. This RN inquired about whether pt would want to possibly be admitted for observation, and pt declined. This RN reached out to Dr. Leonard FREGOSO to inquire about further instruction and MD Valle stated that he spoke w/ pt and family extensively about helping pt transfer at home. Pt states she will have plenty of help at home and verbalizes knowing risks of not following instructions.
== END 2025-10-23 12:35 | disposition home or self-care (01) ==
PROVIDERS: PCP Nurse Practitioner Adult Health; Visit Provider Internal Medicine
PROC: 4A023N7 Measurement of Cardiac Sampling and Pressure, Left Heart, Percutaneous Approach (ICD-10-PCS; CPT 93452; principal; 2025-10-23 11:30)
DX: I25.10 Atherosclerotic heart disease of native coronary artery without angina pectoris (principal); R94.39 Abnormal result of other cardiovascular function study
CPT/HCPCS: 36415; 80048; 85025; 93458; C1769; C1887; C1894; J1644; J2003; J2250; J2305; J2405; J3010; J7030; J7040